=== PATIENT | male | born 1945 | race Caucasian/White ===

== ENCOUNTER 2019-10-15 17:23 | Emergency (ER) | payer OTHER, SELFPAY ==
[2019-10-15 17:32] VITALS: BP 158/81; PULSE 63; RESP 18; TEMP 36.6; O2SAT 94; BMI 40.1
--- NOTE | 2019-10-15 17:37 | PC.NURSE ---
Pt seated in the waiting room. Will continue to monitor.
[2019-10-15 19:11] VITALS: BP 161/92; PULSE 66; RESP 14; TEMP 36.7; O2SAT 96
--- NOTE | 2019-10-15 19:16 | ED_ITS ---
Documented by User: RICK Peraza 10/16/19 02:02 HPI - Extremity Problem General: Chief complaint: Extremity Injury, Upper Stated complaint: LEFT SHOULDER AND ARM PAIN Time Seen by Provider: 10/15/19 19:16 History of Present Illness: HPI Narrative: Patient is a 74-year-old male who comes into the ED with left shoulder pain. He states that around 2 PM today [place] and he tripped and fell landing on his left shoulder. He denies any loss of consciousness any head trauma and dizziness any headache or vision changes after fall. His only complaint is left shoulder pain and he is limited range of motion moving left shoulder and arm. Denies any nausea, vomiting, chest pain, shortness of breath, abdominal pain, bladder or bowel symptoms. Review of Systems General: Reports: 10 or more systems reviewed and unremarkable except in HPI and below PFSH ED PFSH: Statuses (acute, chronic, etc) shown below reflect problem list status as previously entered and may not be historically accurate Family History Mother Heart disease Social History Smoking and tobacco status: never smoked Alcohol intake: never Physical Exam Const: COMMON NORMALS: oriented x3 HENMT: COMMON NORMALS: normocephalic HEAD & SCALP: normocephalic MOUTH: oral and palatal mucosa normal THROAT: posterior oropharynx normal and uvula midline Neck/C-Spine: COMMON NORMALS: supple GENERAL: Yes normal visual inspection Resp: COMMON NORMALS: normal respiratory effort, no retractions, no use of accessory muscles and clear to auscultation bilaterally AUSCULTATION: clear to auscultation bilaterally Cardio: COMMON NORMALS: regular rate, regular rhythm, S1 normal heart sound, S2 normal heart sound, no gallops, no clicks, no murmurs and peripheral pulses 2+ throughout RATE: regular rate RHYTHM: regular rhythm HEART SOUNDS: S1 normal and S2 normal PERIPHERAL PULSES: pulses 2+ throughout GI: COMMON NORMALS: normal to inspection, nondistended, normoactive bowel sounds, soft to palpation, non-tender and no masses PALPATION: Yes soft : COMMON NORMALS: Yes no CVA tenderness BLADDER/KIDNEY EXAM: Yes no CVA tenderness Back/Pelvis: COMMON NORMALS: no CVA tenderness Extremity: LEFT UPPER EXTREMITY: Yes shoulder joint Left shoulder joint: Yes palpation (Tender on posterior and anterior of shoulder joint. also tender on clavicle), Yes ROM (limited due to pain) and Yes neurovascular exam (intact) Neuro: COMMON NORMALS: oriented x3 and moves all extremities Course Vital Signs: Vital signs: Vital Signs Temperature 98.1 F 10/15/19 21:28 Pulse Rate 66 10/15/19 21:28 Respiratory Rate 14 10/15/19 21:28 Blood Pressure 160/94 10/15/19 21:28 Pulse Oximetry 96 10/15/19 21:28 MDM - Extremity (Nontraumatic) MDM Narrative: Medical decision making narrative: Patient is a 74-year-old male comes in with left shoulder pain after falling. X-ray of left shoulder Showed a proximal humeral head fracture that was nondisplaced and closed. An orthopedic referral was made for patient. He was placed in a sling and given a handwritten prescription for Lortab 5/[address] Lorenz signed off on Lortab prescription. Imaging Data^: Xray Ortho: Attestation: I personally reviewed and interpreted this imaging study as follows: My impression: Proximal humeral head fracture of left arm Nondisplaced and jesus sed. Pending final radiology report. Discharge Plan Discharge Patient Disposition: Home, Self-Care Clinical Impression: Fracture of proximal end of left humerus Qualifiers: Encounter type: initial encounter Fracture type: closed Fracture morphology: other fracture Fracture alignment: nondisplaced Qualified Code(s): S42.295A - Other nondisplaced fracture of upper end of left humerus, initial encounter for closed fracture Condition: Stable Prescriptions: No Action betamethasone acet,sod phos [Celestone Soluspan] 6 mg/mL suspension 6 mg intra-articular ONCE PRN (Reason: pain (scale score 1-3)) Qty: 1 RF: 0 bupivacaine (PF) 0.25 % (2.5 mg/mL) solution 5 mg intra-articular ONCE PRN (Reason: analgesia) Qty: 2 RF: 0 lidocaine (PF) 10 mg/mL (1 %) solution 10 mg intra-articular ONCE PRN (Reason: pain (scale score 1-3)) Qty: 2 RF: 0 aspirin [Adult Low Dose Aspirin] 81 mg tablet,delayed release (DR/EC) 81 mg PO QDAY RF: 0 atorvastatin 80 mg tablet 80 mg PO QDAY RF: 0 lisinopril 20 mg tablet 20 mg PO QDAY RF: 0 warfarin 5 mg tablet 5 mg PO QDAY RF: 0 nifedipine 60 mg tablet extended release 60 mg PO QDAY RF: 0 insulin lispro SUBCUT RF: 0 liraglutide (weight loss) 3 mg/0.5 mL (18 mg/3 mL) pen injector 0.6 mg SUBCUT QDAY RF: 0 ranitidine HCl [Acid Control (ranitidine)] 150 mg tablet 150 mg PO QDAY RF: 0 sevelamer carbonate 800 mg tablet 800 mg PO TID RF: 0 gabapentin 300 mg capsule 300 mg PO QDAY RF: 0 All Day Allergy (cetirizine) 10 mg capsule PO RF: 0 omega-3 fatty acids [Fish Oil Concentrate] 1,000 mg capsule 1,000 mg PO QDAY RF: 0 nitroglycerin 0.4 mg tablet, sublingual 0.4 mg SUBLINGUAL Q5M PRNRF: 0 bisacodyl [Ducodyl (bisacodyl)] 5 mg tablet,delayed release (DR/EC) 5 mg PO ONCE RF: 0 oxycodone 5 mg capsule 5 mg PO BID PRNRF: 0 doxercalciferol 1 mcg capsule 1 mcg PO QDAY RF: 0 epoetin beta, methoxy peg 30 mcg/0.3 mL syringe 30 mcg SUBCUT ONCE RF: 0 cinacalcet 30 mg tablet 30 mg PO QDAY RF: 0 Discharge Orders: Discharge Order (Routine); Ordered 10/15/19 Ordered By: Mir Gamboa Referrals: Adria Artis DO [Family Provider] - Discharge Diet: Regular Discharge Activity: Limit activity as instructed Patient Instructions: Fractures - Humerus Activity Restrictions/Additional Instructions: [facility] [place] been [place]. The orthopedic office should be calling you in the next couple days to set up an appointment. Wear sling and limit any activity with the left arm. He can apply ice to help with swelling and symptom relief. Take hydrocodone pain medication as prescribed. Also take ibuprofen along with hydrocodone to help with pain. Discharge Date/Time: 10/15/19 21:29 Coding Level of Care Code ED Reel And Rewinder Operator for Chg Fwd Documented by User: Edgardo Lorenz DO 10/17/19 05:53 HPI - Extremity Problem General: Chief complaint: Extremity Injury, Upper Stated complaint: LEFT SHOULDER AND ARM PAIN Time Seen by Provider: 10/15/19 19:16 PFSH ED PFSH: Statuses (acute, chronic, etc) shown below reflect problem list status as previously entered and may not be historically accurate Family History Mother Heart disease Social History Smoking and tobacco status: never smoked Alcohol intake: never Course Vital Signs: Vital signs: Vital Signs Temperature 98.1 F 10/15/19 21:28 Pulse Rate 66 10/15/19 21:28 Respiratory Rate 14 10/15/19 21:28 Blood Pressure 160/94 10/15/19 21:28 Pulse Oximetry 96 10/15/19 21:28 Discharge Plan Discharge Patient Disposition: Home, Self-Care Clinical Impression: Fracture of proximal end of left humerus Qualifiers: Encounter type: initial encounter Fracture type: closed Fracture morphology: other fracture Fracture alignment: nondisplaced Qualified Code(s): S42.295A - Other nondisplaced fracture of upper end of left humerus, initial encounter for closed fracture Condition: Stable Prescriptions: No Action betamethasone acet,sod phos [Celestone Soluspan] 6 mg/mL suspension 6 mg intra-articular ONCE PRN (Reason: pain (scale score 1-3)) Qty: 1 RF: 0 bupivacaine (PF) 0.25 % (2.5 mg/mL) solution 5 mg intra-articular ONCE PRN (Reason: analgesia) Qty: 2 RF: 0 lidocaine (PF) 10 mg/mL (1 %) solution 10 mg intra-articular ONCE PRN (Reason: pain (scale score 1-3)) Qty: 2 RF: 0 aspirin [Adult Low Dose Aspirin] 81 mg tablet,delayed release (DR/EC) 81 mg PO QDAY RF: 0 atorvastatin 80 mg tablet 80 mg PO QDAY RF: 0 lisinopril 20 mg tablet 20 mg PO QDAY RF: 0 warfarin 5 mg tablet 5 mg PO QDAY RF: 0 nifedipine 60 mg tablet extended release 60 mg PO QDAY RF: 0 insulin lispro SUBCUT RF: 0 liraglutide (weight loss) 3 mg/0.5 mL (18 mg/3 mL) pen injector 0.6 mg SUBCUT QDAY RF: 0 ranitidine HCl [Acid Control (ranitidine)] 150 mg tablet 150 mg PO QDAY RF: 0 sevelamer carbonate 800 mg tablet 800 mg PO TID RF: 0 gabapentin 300 mg capsule 300 mg PO QDAY RF: 0 All Day Allergy (cetirizine) 10 mg capsule PO RF: 0 omega-3 fatty acids [Fish Oil Concentrate] 1,000 mg capsule 1,000 mg PO QDAY RF: 0 nitroglycerin 0.4 mg tablet, sublingual 0.4 mg SUBLINGUAL Q5M PRNRF: 0 bisacodyl [Ducodyl (bisacodyl)] 5 mg tablet,delayed release (DR/EC) 5 mg PO ONCE RF: 0 oxycodone 5 mg capsule 5 mg PO BID PRNRF: 0 doxercalciferol 1 mcg capsule 1 mcg PO QDAY RF: 0 epoetin beta, methoxy peg 30 mcg/0.3 mL syringe 30 mcg SUBCUT ONCE RF: 0 cinacalcet 30 mg tablet 30 mg PO QDAY RF: 0 Discharge Orders: Discharge Order (Routine); Ordered 10/15/19 Ordered By: Mir Gamboa Referrals: Adria Artis DO [Family Provider] - Discharge Diet: Regular Discharge Activity: Limit activity as instructed Patient Instructions: Fractures - Humerus Activity Restrictions/Additional Instructions: [facility] [place] has been made. The orthopedic office should be calling you in the next couple days to set up an appointment. Wear sling and limit any activity with the left arm. He can apply ice to help with swelling and symptom relief. Take hydrocodone pain medication as prescribed. Also take ibuprofen along with hydrocodone to help with pain. Discharge Date/Time: 10/15/19 21:29 Coding Level of Care Code ED Reel And Rewinder Operator for Aurelia Chaudhari
--- NOTE | 2019-10-15 19:54 | XR_ITS ---
WS: [id number] SHOULDER LEFT TECHNIQUE: 3 views of the left shoulder CLINICAL INFORMATION: Shoulder pain COMPARISON: None. FINDINGS: Mild degenerative arthritis left AC joint. Distal clavicle appears normal. Cardiac pacer. Comminuted fracture left humeral head and neck. This extends to the greater tuberosity. XR/XR shoulder LT min 2V* [id number] IMPRESSION: Comminuted fracture left humeral head and neck with extension to the greater tu berosity
[2019-10-15] MEDS: HYDROcodone-acetaminophen 7.5-325 mg Tablet 1 TAB PO (20:53)
[2019-10-15 21:28] VITALS: BP 160/94; PULSE 66; RESP 14; TEMP 36.7; O2SAT 96
--- NOTE | 2019-10-16 10:43 | DCPLANNER ---
utilities manager had message to schedule a follow up appointment for patient with ortho. utilities manager called ortho, spoke with Pat, gave clinic patients information. A follow up appointment was scheduled for Wednesday, October 16, 2019 at 1:[address] Castillo. [facility], keycase assembler called [facility], informed her that patient was seen in the ER and that patient has an appointment scheduled for 10.16.19. Clinic will call patient with appointment information. utilities manager [facility].
--- NOTE | 2019-11-20 14:19 | DCPLANNER ---
Patient attended appointment scheduled for 10.16.19 with ortho.
== END 2019-10-15 21:29 | disposition home or self-care (01) ==
PROVIDERS: Emergency Provider Physician Assistant; Family Provider Emergency Medicine Emergency Medical Services
DX: S42.202A Unspecified fracture of upper end of left humerus, initial encounter for closed fracture (principal); W01.0XXA Fall on same level from slipping, tripping and stumbling without subsequent striking against object, initial encounter; Z79.82 Long term (current) use of aspirin; Z79.01 Long term (current) use of anticoagulants; Z79.4 Long term (current) use of insulin
CPT/HCPCS: 73030; 99281; 99283

== ENCOUNTER → 2019-10-30 08:35 | Outpatient (BNVA) | payer OTHER, SELFPAY | PROVIDERS: Family Provider Emergency Medicine Emergency Medical Services; Visit Provider Orthopaedic Surgery | DX: S42.202A Unspecified fracture of upper end of left humerus, initial encounter for closed fracture (principal); X58.XXXA Exposure to other specified factors, initial encounter | CPT/HCPCS: 73030 ==

== ENCOUNTER 2019-10-31 06:00 | Outpatient (RCR) | payer OTHER, SELFPAY | END 2019-11-10 23:59 | disposition home or self-care (01) | LOC: TPT 06:00 | PROVIDERS: Family Provider Emergency Medicine Emergency Medical Services; PCP Emergency Medicine Emergency Medical Services; Referring Provider Orthopaedic Surgery; Visit Provider Orthopaedic Surgery | DX: S42.202D Unspecified fracture of upper end of left humerus, subsequent encounter for fracture with routine healing (principal); X58.XXXD Exposure to other specified factors, subsequent encounter | CPT/HCPCS: 97110; 97140; 97161 ==

== ENCOUNTER 2019-11-11 06:00 | Outpatient (RCR) | payer OTHER, SELFPAY | END 2019-12-11 23:59 | disposition home or self-care (01) | LOC: TPT 06:00 | PROVIDERS: Family Provider Emergency Medicine Emergency Medical Services; PCP Emergency Medicine Emergency Medical Services; Referring Provider Orthopaedic Surgery; Visit Provider Orthopaedic Surgery | DX: S42.202D Unspecified fracture of upper end of left humerus, subsequent encounter for fracture with routine healing (principal); X58.XXXD Exposure to other specified factors, subsequent encounter | CPT/HCPCS: 97110; 97140; 97530 ==

== ENCOUNTER 2019-11-27 08:15 | Outpatient (CLI) | payer OTHER, SELFPAY ==
--- NOTE | 2019-11-27 08:26 | XR_ITS ---
WS: [id number] XR shoulder LT min 2V* [id number] REASON FOR EXAM: left proximal humerus fracture FINDINGS: Impacted fractures again seen in the surgical neck of the left humerus positioning is simil ar to October 30, 2019. A pacemaker seen on the left chest wall. The remaining shoulder was normal. XR/XR shoulder LT min 2V* [id number] IMPRESSION: Unchanged impacted surgical neck fracture of the left humerus.
== END 2019-11-27 08:16 | disposition home or self-care (01) ==
LOC: RAD 08:19
PROVIDERS: Family Provider Emergency Medicine Emergency Medical Services; PCP Emergency Medicine Emergency Medical Services; Visit Provider Orthopaedic Surgery
DX: S42.212A Unspecified displaced fracture of surgical neck of left humerus, initial encounter for closed fracture (principal); X58.XXXA Exposure to other specified factors, initial encounter
CPT/HCPCS: 73030

== ENCOUNTER → 2019-12-25 12:44 | Outpatient (BNVA) | payer OTHER, SELFPAY | PROVIDERS: Family Provider Emergency Medicine Emergency Medical Services; PCP Emergency Medicine Emergency Medical Services; Visit Provider Orthopaedic Surgery | DX: S42.295A Other nondisplaced fracture of upper end of left humerus, initial encounter for closed fracture (principal); S42.202A Unspecified fracture of upper end of left humerus, initial encounter for closed fracture; X58.XXXA Exposure to other specified factors, initial encounter | CPT/HCPCS: 73030 ==

== ENCOUNTER 2020-05-13 06:44 | Outpatient (CLI) | payer OTHER, SELFPAY ==
[2020-05-13 07:15] VITALS: BMI 40.1
--- NOTE | 2020-05-13 07:15 | ECG_ITS ---
[facility] Test Date: 2020-05-13 Pat Name: Shon Mullen Department: Room: Gender: Male Gerentological Physiotherapist: : 1945 Requested By: Marlene Vaughn Order Number: [id number] Quintanilla MD: Saji Cohen M.D. Interpretive Statements NAME OF STUDY: LEXISCAN SESTAMIBI STRESS TEST INDICATION: WORSENING SHORTNESS OF BREATH NOTE: Please note that this is the electrocardiogram portion of the Lexiscan/Sestamibi stress test. The perfusion scan will be documented separately. DATA: Baseline heart rate was 78 beats per minute. Baseline blood pressure was 188/93 millimeters of mercury. Target heart rate was 147. Maximum heart rate achieved was 85. which was 57 % of the predicted target heart rate. Maximum blood pressure was 188/104 millimeters of mercury. The reason for ending the test was completion of the protocol. The patient did not experience any symptoms. ELECTROCARDIOGRAM: BASELINE: Sinus rhythm. Normal axis. Inferolateral T wave inversion could be nonspecific however cannot rule out ischemia, interventricular conduction delay EXERCISE: After Lexiscan injection, no ST-T changes suggestive of ischemic noted. No arrhythmia noted. CONCLUSION: Please note due to baseline abnormality of the EKG specificity and sensitivity of the EKG portion of LexiScan MIBI stress test will be low 1. EKG not suggestive of ischemia 2. Lexiscan injection unremarkable. 3. Perfusion scan will be documented separately. Electronically Signed On 05-23-2020 16:40:17 CDT by Saji Cohen M.D. [id number]
--- NOTE | 2020-05-13 07:16 | NMCV_ITS ---
NM noah perf SPECT r/s* [id number] Shon Mullen Age: 75 Gender: M : 1945 Exam Date: 05/13/2020 08:08 Ordering Phys: Marlene Vaughn Technologist: ELROY Brown Exam Location: [facility] Indications: SOB STRESS TEST [facility] IMAGE PROTOCOL Rest/Stress 1 Lexiscan Day Radiopharmaceutical Dose (mCi) Administration Site Administered by Rest: Tc-99m 10.9 IV ELROY Brown Sestamibi Stress:Tc-99m 32.5 IV ELROY Michelle Sestamibi Rest: 13-May-2020 60 Discovery 630 Stress: 13-May-2020 45 Discovery 630 0.4mg Lexiscan. Images obtained in supine and prone position. SPECT RESULTS Technical Quality: Good Raw Data Analysis: Adequate Image Corrections: Patient motion artifact - motion correction applied to stress images. Summed Stress Score: 14 Summed Rest Score: 19 Summed Difference Score: 4 PERFUSION FINDINGS Large area of fixed perfusion defect noted in basal to distal inferior basal to mid inferolateral and lateral wall suggestive of old myocardial infarction versus scarring. FUNCTIONAL RESULTS (calculated via Gated SPECT) Stress Image LV EF (%): 30 Stress EDV (mL):202 TID: 1.06 Stress ESV (mL):142 Rest Image LV EF (%): 30 FUNCTIONAL FINDINGS: There appeared to be inferior inferolateral and inferoapical wall akinesis IMPRESSIONS Medium-sized area of old myocardial infarction versus scarring noted in basal to distal inferior and inferolateral wall suggestive old myocardial infarction versus scarring without significant ischemia. EKG segment will be documented separately. Saji Cohen MD (Electronically Signed) Final Date: 13 May 2020 17:39 S
--- NOTE | 2020-05-13 09:11 | SUR.PREOP ---
Patient reports no pain or discomfort prior to the start of the procedure.
[2020-05-13] MEDS: regadenoson 0.4 Mg/5 ml Syringe IVP (09:13)
[2020-05-13 09:35] VITALS: BP 168/93; PULSE 68
== END 2020-05-13 06:45 | disposition home or self-care (01) ==
LOC: CDL 06:44
PROVIDERS: PCP Emergency Medicine Emergency Medical Services; Visit Provider Nurse Practitioner Family
DX: R06.02 Shortness of breath (principal); I25.10 Atherosclerotic heart disease of native coronary artery without angina pectoris
CPT/HCPCS: 78452; 93017; A9500; J2785

== ENCOUNTER 2020-05-20 12:28 | Outpatient (CLI) | payer OTHER, SELFPAY ==
--- NOTE | 2020-05-20 12:45 | USCV_ITS ---
CindymariferShon Age: 75 Gender: M : 1945 Exam Date: 05/20/2020 12:51 Ordering Phys: Saji Cohen MD ([email or web address]) Technologist: Abebe Chambers Exam Location: [facility] [place] Indication: LV FUNCTION OR MITRAL VALVE REGURGITATION BP: 132 / 75 HR: 39 Rhythm: Sinus Technical Quality: Technically difficult study MEASUREMENTS (Male / Female) Normal Values 2D ECHO LV Diastolic Diameter PLAX 5.4 cm 4.2 - 5.9 / 3.9 - 5.3 cm LV Systolic Diameter PLAX 2.9 cm IVS Diastolic Thickness 1.3 cm 0.6 - 1.0 / 0.6 - 0.9 cm IVS Systolic Thickness 1.6 cm LVPW Diastolic Thickness 1.3 cm 0.6 - 1.0 / 0.6 - 0.9 cm LVPW Systolic Thickness 1.8 cm LVOT Diameter 2.3 cm LV Ejection Fraction 2D Teich 76.6 % LV Ejection Fraction MOD 2C 52.6 % LV Ejection Fraction 2C AL 55.2 % LA Diameter 4.9 cm LA Width 5.1 cm LA Height 6.3 cm RA Width 5.3 cm RA Height 5.8 cm Aorta at Sinotubular Diameter 1.2 cm M-MODE LV Diastolic Diameter MM 5.5 cm 4.2 - 5.9 / 3.9 - 5.3 cm LV Systolic Diameter MM 3.3 cm LV Ejection Fraction MM Teich 69.4 % IVS Diastolic Thickness MM 1.2 cm 0.6 - 1.0 / 0.6 - 0.9 cm IVS Systolic Thickness MM 1.9 cm LVPW Diastolic Thickness MM 1.6 cm 0.6 - 1.0 / 0.6 - 0.9 cm LVPW Systolic Thickness MM 2.7 cm RV Diastolic Diameter MM 2.2 cm Aortic Annulus Diameter 3.4 cm LA Ao Ratio MM 1.4 MV E Point Septal Separation 2.0 cm DOPPLER AV Peak Velocity 216.0 cm/s LVOT Peak Velocity 73.0 cm/s AV Area Cont Eq vti 1.2 cm squared AV Area Cont Eq pk 1.4 cm squared MV Area PHT 3.2 cm squared Mitral E to A Ratio 4.3 MV E' Velocity 8.0 cm/s Mitral E to MV E' Ratio 12.4 Mitral E to LV E' Lateral Ratio 12.7 Mitral E to LV E' Septal Ratio 12.1 TR Peak Velocity 219.0 cm/s TR Peak Gradient 19.2 mmHg TV Peak E Velocity 115.0 cm/s Right Atrial Pressure 3.0 mmHg Pulmonary Artery Systolic Pressu 22.2 mmHg PV Peak Velocity 110.0 cm/s FINDINGS Left Ventricle Moderately increased left ventricular cavity size. Normal left ventricular systolic function. Left ventricular ejection fraction is estimated at 55 %. In the presence of atrial fibrillation diastolic function cannot be assessed accurately. Right Ventricle Normal right ventricular size. Catheter/pacemaker wire visualized in the right ventricle. Right Atrium Normal right atrial size. Catheter/pacemaker wire in the right atrial cavity. Left Atrium The left atrium is normal in size. Mitral Valve Mildly thickened mitral valve. No mitral valve stenosis. Moderate mitral valve regurgitation. Aortic Valve Moderate aortic valve calcification. No aortic valve stenosis. No aortic valve regurgitation. Tricuspid Valve Structurally normal tricuspid valve without significant stenosis or regurgitation. Pulmonary artery systolic pressure is normal. Pulmonic Valve Structurally normal pulmonic valve without significant stenosis. There is no pulmonic regurgitation. Pericardium Normal pericardium without effusion. Aorta Normal ascending aorta dimension. CONCLUSIONS 1-Moderately increased left ventricular cavity size. Normal left ventricular systolic function. Left ventricular ejection fraction is estimated at 55 %. In the presence of atrial fibrillation diastolic function cannot be assessed accurately. 2-Normal right ventricular size. Catheter/pacemaker wire visualized in the right ventricle. 3-Normal right atrial size. Catheter/pacemaker wire in the right atrial cavity. 4-Mildly thickened mitral valve. No mitral valve stenosis. Moderate mitral valve regurgitation. 5-Moderate aortic valve calcification. No aortic valve stenosis. No aortic valve regurgitation. 6-There is no pericardial effusion. 7-Pulmonary artery systolic pressure is within normal limits. 8-Right atrial pressure is around 5 mm of mercury. 9-When compared to the prior echocardiogram dated 02/12/2019 there is moderate mitral valve regurgitation and pacer wire in the right ventricle cavity present now. Saji Cohen MD (Electronically Signed) Final Date: 22 May 2020 19:19 S
== END 2020-05-20 12:29 | disposition home or self-care (01) ==
LOC: US 12:28
PROVIDERS: PCP Emergency Medicine Emergency Medical Services; Visit Provider Internal Medicine Cardiovascular Disease
DX: R06.02 Shortness of breath (principal); I08.0 Rheumatic disorders of both mitral and aortic valves; Z95.0 Presence of cardiac pacemaker
CPT/HCPCS: 93306

== ENCOUNTER → 2020-09-15 11:21 | Outpatient (BNVA) | payer OTHER, SELFPAY | PROVIDERS: PCP Emergency Medicine Emergency Medical Services; Visit Provider Internal Medicine | DX: Z20.828 Contact with and (suspected) exposure to other viral communicable diseases (principal); Z76.82 Awaiting organ transplant status | CPT/HCPCS: 87635 ==

== ENCOUNTER 2020-09-19 08:06 | Day surgery (SDC) | payer OTHER, SELFPAY ==
[2020-09-17 13:15] VITALS: BMI 39.2
[2020-09-19 08:22] VITALS: BP 157/95; PULSE 72; RESP 16; TEMP 36.4; O2SAT 97
[2020-09-19] MEDS: sodium chloride 0.9% 1,000 ML 30 ML IV (08:36)
[2020-09-19 08:38] LABS: Glucose Point of Care 126 mg/dL (70-110)
--- NOTE | 2020-09-19 08:43 | ANES.PREANE2 ---
Pre-Anesthetic Assessment Pre-Anesthetic Assessment: Height/Weight: Height 1.78 m Weight 123.831 kg Temp Pulse Resp BP Pulse Ox 97.6 F 72 16 157/95 97 09/19/20 08:22 09/19/20 08:22 09/19/20 08:22 09/19/20 08:22 09/19/20 08:22 Preop Diagnosis: colon Proposed Procedure: Operation Date: 09/19/20 09:00 Proposed Procedures p Colonoscopy 60248 Z76.82(Not Applicable) - Jesús Penn MD Familial anesthetic complications: None Was Beta Maciej taken within 24 hours: N/A Last intake: Intake Last Liquid Date 09/18/20 Last Liquid Time 20:00 Last Solid Date 09/17/20 Last Solid Time 20:00 Social: Social History: No alcohol and No tobacco Exam: Pre-Anes Outpt Exam: alert, oriented x 3, clear to auscultation bilaterally and regular rate & rhythm Airway: Cervical ROM: WNL MP: 3 Dentition: False Pulmonary: Comments: 2 L NC at night CV/HEM: CV/HEM: CAD, HTN and OH Comments: 05/20/20 EF 55%, mod MVR 05/13/20 stress test negative pacemaker : : Chronic renal failure Comments: working towards kidney transplant GI: GI: GERD Metabolic: Metabolic: DM Anesthetic Plan: ASA status: 4 Anesthesia: MAC Risk of > 500 ml blood loss (7ml/kg in children): No Meds/Allergies Current Medications: Current Medications Generic Name Dose Route Start Last Admin Trade Name Freq PRN Reason Stop Dose Admin Sodium Chloride 1,000 mls @ 30 ml s/hr 09/19/20 08:15 09/19/20 08:36 Sodium Chloride 0.9% IV 09/20/20 08:14 30 mls/hr .Q24H GEORGE Administration PFSH Anesthesia PFSH: Medical History (Updated 09/02/20 @ 11:11 by Jesús Penn MD) Accelerated essential hypertension CAD (coronary artery disease) History of heart attack Pacemaker Renal failure Surgical History S/P cardiac pacemaker procedure S/P dialysis catheter insertion S/P PTCA (percutaneous transluminal coronary angioplasty) Family History Mother Heart disease Social History Smoking and tobacco status: former smoker Alcohol intake: never History of recent travel: No Data Anesthesia Other Labs: Laboratory Results - last 48 hr 09/19/20 08:34 POC Glucose 126 H Cardiac Studies: No Data to Display
--- NOTE | 2020-09-19 09:18 | W.PM.OPSUD ---
Surgery/Procedure H&P Update DATE OF PROCEDURE: September 19, 2020 DATE H&P PERFORMED: 09/02/20 PREOP DIAGNOSIS: colon PLANNED PROCEDURE: Operation Date: 09/19/20 09:00 Proposed Procedures p Colonoscopy [id number] Z76.82(Not Applicable) - Jesús Penn MD
[2020-09-19 09:48] VITALS: BP 112/67; PULSE 67; RESP 12; TEMP 36.3; O2SAT 92
[2020-09-19 10:01] VITALS: BP 126/72; PULSE 58; RESP 18; TEMP 36.4; O2SAT 94
[2020-09-19 10:16] VITALS: BP 135/75; PULSE 62; RESP 18; TEMP 36.2; O2SAT 97
--- NOTE | 2020-09-19 16:24 | ANE.PACU2 ---
Inpatient post-anesthesia follow up: Airway intact: Yes Vital signs: Temperature 97.2 F Pulse Rate 62 Respiratory Rate 18 Blood Pressure 135/75 Pulse Oximetry 97 Oxygen Delivery Me thod Nasal Cannula Oxygen Flow Rate 4 Fraction of Inspir ed Oxygen Hydration adequate: Yes Nausea and vomiting: No Pain level: 2 Mental status: Baseline
== END 2020-09-19 10:47 | disposition home or self-care (01) ==
PROVIDERS: PCP Emergency Medicine Emergency Medical Services; Visit Provider Internal Medicine
PROC: 0DJD8ZZ Inspection of Lower Intestinal Tract, Via Natural or Artificial Opening Endoscopic (ICD-10-PCS; CPT 45378; principal; 2020-09-19 09:00)
DX: Z01.818 Encounter for other preprocedural examination (principal); Z76.82 Awaiting organ transplant status; K57.30 Diverticulosis of large intestine without perforation or abscess without bleeding; D12.3 Benign neoplasm of transverse colon; Z99.81 Dependence on supplemental oxygen; I25.10 Atherosclerotic heart disease of native coronary artery without angina pectoris; E11.9 Type 2 diabetes mellitus without complications; I10 Essential (primary) hypertension; I25.2 Old myocardial infarction; Z95.0 Presence of cardiac pacemaker
CPT/HCPCS: 12345; 36416; 45385; 82962; 88305; J7030

== ENCOUNTER 2020-11-11 12:27 | Emergency (ER) | payer OTHER, MEDICARE, SELFPAY ==
[2020-11-11 12:34] VITALS: BP 151/90; PULSE 76; RESP 24; TEMP 36.5; O2SAT 94; BMI 41.4
--- NOTE | 2020-11-11 12:48 | XRR_ITS ---
PROCEDURE INFORMATION: Exam: XR Chest Exam date and time: 11/11/2020 12:50 PM Age: 75 years old Clinical indication: Shortness of breath; Prior surgery; Additional info: SOB TECHNIQUE: Imaging protocol: XR of the chest Views: 1 view. COMPARISON: CR Chest 1 [place] [id number] 02/20/2019 2:23 PM FINDINGS: Lungs: Parenchymal density is seen in the right perihilar and mid lung consistent with pneumonia. This finding is new since prior examination. Low lung volumes are seen. Pleural spaces: Unremarkable. No pleural effusion. No pneumothorax. Heart/Mediastinum: Unremarkable. No cardiomegaly. Bones/joints: Unremarkable. Soft tissues: Cardiac pacemaker left anterior chest the unipolar lead is intact and in good position. XR/XR chest 1V portable [id number] IMPRESSION: 1. Right perihilar pneumonia 2. Cardiac pacemaker left anterior chest in good position
--- NOTE | 2020-11-11 12:49 | ECG_ITS ---
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: : 1945 Requested By: Mir Gamboa Order Number: [id number] Dwight MD: KINSEY VIVAS Measurements Intervals [place] Rate: 63 P: WI: QRS: 19 QRSD: 105 T: -73 QT: 414 QTc: 424 Interpretive Statements PACED RHYTHM ELECTRONIC VENTRICULAR PACEMAKER -- CONTOUR ANALYSIS BASED ON INTRINSIC RHYTHM INDETERMINATE AXIS ST DEVIATION AND MODERATE T-WAVE ABNORMALITY, CONSIDER ANTEROLATERAL ISCHEMIA [-0.1+ mV T WAVE IN V3-V6] ST DEVIATION AND MODERATE T-WAVE ABNORMALITY, CONSIDER INFERIOR ISCHEMIA [-0.1+ mV T WAVE IN II/aVF] No previous ECG available for comparison Electronically Signed On 11-11-2020 19:56:38 DEPUTY PROBATION OFFICER by KINSEY VIVAS [id number]
[2020-11-11 13:19] VITALS: O2SAT 97
[2020-11-11 13:29] LABS: Basophils # 0.1 10^3/uL (0.0-0.1); Basophils % 0.6 %; Eosinophils # 0.3 10^3/uL (0.0-0.8); Eosinophils % 3.3 %; Hematocrit 31.7 % (42.0-52.0); Hemoglobin 10.4 g/dL (11.7-16.6); Lymphocytes % 10.1 %; Mean Corpuscular HGB Conc 32.8 g/dL (30.0-36.0); Mean Corpuscular Hemoglobin 30.7 pg (28.0-34.0); Mean Corpuscular Volume 93.5 fL (80-94); Mean Platelet Volume 10.2 fL (7.4-10.4); Monocytes # 0.7 10^3/uL (0.2-0.9); Monocytes % 7.8 %; Neutrophils # 7.29 10^3/uL (1.8-7.7); Neutrophils % 77.9 %; Nucleated Red Blood Cells % 0 %; Platelet Count 210 10^3/cmm (130-400); Red Blood Count 3.39 10^6/uL (4.1-5.3); Red Cell Distribution Width 14.4 % (12.1-15.1); White Blood Count 9.4 10^3/uL (4.0-10.0)
--- NOTE | 2020-11-11 13:31 | ED_ITS ---
HPI - SOB/Dyspnea General: Chief Complaint: Shortness of Breath/Dyspnea Stated Complaint: [facility] Time Seen by Provider: 11/11/20 13:22 History of Present Illness: HPI Narrative: 75-year-old male who comes in today from [facility]. He went there for follow-up a week ago he been started on some antibiotics as well as some diuretics for his perceived to be some fluid overload as well as some suspected underlying pneumonia he didn't feel like he was better and they reported to him that his chest x-ray is worse he was diverted here he is usually on oxygen at 2 L/min he is also on apixaban. He has a history of end-stage renal disease and last few months he had converted from hemodialysis to home peritoneal dialysis. His weights been stable for last 2 weeks. He denies any fever he has had a minimally productive cough no chest pain. MD elicited complaint: shortness of breath and cough Pertinent past history: COPD and pneumonia Onset (ago): week(s) Context: recent illness Timing: intermittent Severity: moderate Exacerbating factors: coughing Relieving factors: oxygen and rest Known history of: COPD Associated symptoms: Reports chest congestion; Deny abdominal pain, chest pain, cough, diaphoresis, dizziness, extremity pain, fever(s), hemoptysis, lightheadedness, myalgias, nausea, orthopnea, palpita tions, paresthesias, polydipsia, polyuria, rash, sense of impending doom, syncope or vomiting Treatment prior to arrival: oxygen Review of Systems Const: Denies: fever(s) or diaphoresis ENMT: Denies: throat pain, ear or mastoid pain, nasal discharge or nasal congestion Card: Denies: chest pain, palpitations, lightheadedness, syncope or orthopnea Resp: Reports: chest congestion; Denies: hemoptysis GI: Denies: abdominal pain, nausea or vomiting : Denies: flank pain, dysuria, urinary frequency or urinary urgency Musc: Denies: extremity pain Skin/Breast: Denies: rash or pruritus Neuro: Denies: dizziness Endo: Denies: polyuria or polydipsia PFS ED PFSH: Medical History Accelerated essential hypertension CAD (coronary artery disease) History of heart attack Pacemaker Renal failure Surgical History S/P cardiac pacemaker procedure S/P dialysis catheter insertion S/P PTCA (percutaneous transluminal coronary angioplasty) Family History Mother Heart disease Social History Smoking and tobacco status: former smoker Alcohol intake: never History of recent travel: No Physical Exam Const: COMMON NORMALS: no acute distress GENERAL APPEARANCE: cooperative and comfortable ORIENTATION/CONSCIOUSNESS: Yes awake, Yes oriented to person, Yes oriented to place and Yes oriented to time HENMT: COMMON NORMALS: normocephalic, atraumatic and hearing grossly normal bilaterally HEAD & SCALP: normocephalic and atraumatic Eye: COMMON NORMALS: Equal, round and reactive pupils present, EOMs intact bilaterally, conjunctivae normal and no scleral icterus CONJUNCTIVA: Yes conjunctivae normal PUPIL: Yes Equal, round and reactive pupils present Neck/C-Spine: COMMON NORMALS: full ROM, no lymphadenopathy, supple and no JVD Lymph: LYMPHATIC: no lymphadenopathy noted and no lymphedema noted Resp: COMMON NORMALS: normal respiratory effort, No retractions and No use of accessory muscles AUSCULTATION: rhonchi right upper Cardio: COMMON NORMALS: no JVD, regular rate, regular rhythm and No murmurs present (Cardio) RATE: regular rate RHYTHM: regular rhythm GI: COMMON NORMALS: Soft to palpation and No hepatosplenomegaly present AUSCULTATION: Yes normoactive bowel sounds PALPATION: Yes Soft to palpation, No Tenderness to palpation present (GI), No Guarding due to palpation present (GI) and Yes No hepatosplenomegaly present Extremity: COMMON NORMALS: normal to inspection, capillary refill normal, no clubbing, cyanosis or edema, no calf tenderness and no pedal edema Neuro: SENSORIUM/ORIENTATION: Yes oriented to person, Yes oriented to place and Yes oriented to time Skin: COMMON NORMALS: no rashes or lesions noted GENERAL SKIN EXAM: no rashes or lesions noted Course Vital Signs: Vital signs: Vital Signs Temperature 97.7 F 11/11/20 12:34 Pulse Rate 63 11/11/20 17:21 Respiratory Rate 17 11/11/20 17:21 Blood Pressure 135/76 11/11/20 17:21 Pulse Oximetry 95 11/11/20 17:21 MDM - SOB/Dyspnea MDM Narrative: Medical decision making narrative: Increased infiltrate on lung right patient has previously been on Zithromax we will put him on Levaquin recheck with his primary care doctor within the next week. If there is any worsening or change symptoms return. Lab Data: Labs: Lab Results 11/11/20 11/11/20 11/11/20 Range/Units 13:10 13:10 13:10 WBC 9.4 (4.0-10.0) 10^3/ uL RBC 3.39 L (4.1-5.3) 10^6/u L Hgb 10.4 L (11.7-16.6) g/dL Hct 31.7 L (42.0-52.0) % MCV 93.5 (80-94) fL MCH 30.7 (28.0-34.0) pg MCHC 32.8 (30.0-36.0) g/dL RDW 14.4 (12.1-15.1) % Plt Count 210 (130-400) 10^3/c mm MPV 10.2 (7.4-10.4) fL Neut % (Auto) 77.9 % Lymph % (Auto) 10.1 % [place]ade % (Auto) 7.8 % Eos % (Auto) 3.3 % Baso % (Auto) 0.6 % Neut # (Auto) 7.29 (1.8-7.7) 10^3/u L Lymph # (Auto) 1.0 (0.8-4.8) 10^3/u L Dade # (Auto) 0.7 (0.2-0.9) 10^3/u L Eos # (Auto) 0.3 (0.0-0.8) 10^3/u L Baso # (Auto) 0.1 (0.0-0.1) 10^3/u L Nucleated RBC % (a uto) 0 % Nucleated RBCs # 0.0 /100WBC Sodium 132 L (136-145) mmol/L Potassium 3.6 (3.5-5.1) mmol/L Chloride 93 L (98-107) mmol/L Carbon Dioxide 27 (22-29) mmol/L Anion Gap 15.6 (5-19) BUN 38 H (8-23) mg/dL Creatinine 4.8 H (0.7-1.2) mg/dL GFR Calculation Not Reportable Glucose 155 H (65-115) mg/dL Calculated Osmolal ity 286 (285-295) mOsm/k g Calcium 9.3 (8.5-10.5) mg/dL Total Bilirubin 0.4 (0.15-1.2) mg/dL AST 17 (0-40) U/L ALT 18 (0-41) U/L Alkaline Phosphata se 79 (40-130) IU/L Troponin T Baselin e 82 H (0-15) ng/L Troponin T 120 Min [place] (0-15) ng/L Delta Troponin T (0-10) ABS# NT-Pro-B Natriuret Pep 64832 H (0-125) pg/mL Total Protein 6.9 (6.6-8.7) g/dL Albumin 3.6 (3.5-5.2) g/dL Globulin 3.3 (1.3-4.6) g/dL 11/11/20 Range/Units 13:35 WBC (4.0-10.0) 10^3/ uL RBC (4.1-5.3) 10^6/u L Hgb (11.7-16.6) g/dL Hct (42.0-52.0) % MCV (80-94) fL MCH (28.0-34.0) pg MCHC (30.0-36.0) g/dL RDW (12.1-15.1) % Plt Count (130-400) 10^3/c mm MPV (7.4-10.4) fL Neut % (Auto) % Lymph % (Auto) % [place] % (Auto) % Eos % (Auto) % Baso % (Auto) % Neut # (Auto) (1.8-7.7) 10^3/u L Lymph # (Auto) (0.8-4.8) 10^3/u L [place] # (Auto) (0.2-0.9) 10^3/u L Eos # (Auto) (0.0-0.8) 10^3/u L Baso # (Auto) (0.0-0.1) 10^3/u L Nucleated RBC % (a uto) % Nucleated RBCs # /100WBC Sodium (136-145) mmol/L Potassium (3.5-5.1) mmol/L Chloride (98-107) mmol/L Carbon Dioxide (22-29) mmol/L Anion Gap (5-19) BUN (8-23) mg/dL Creatinine (0.7-1.2) mg/dL GFR Calculation Glucose (65-115) mg/dL Calculated Osmolal ity (285-295) mOsm/k g Calcium (8.5-10.5) mg/dL Total Bilirubin (0.15-1.2) mg/dL AST (0-40) U/L ALT (0-41) U/L Alkaline Phosphata se (40-130) IU/L Troponin T Baselin e (0-15) ng/L Troponin T 120 Min [place] 78.83 H (0-15) ng/L Delta Troponin T -3.17 L (0-10) ABS# NT-Pro-B Natriuret Pep (0-125) pg/mL Total Protein (6.6-8.7) g/dL Albumin (3.5-5.2) g/dL Globulin (1.3-4.6) g/dL Discharge Plan Discharge Patient Disposition: Home Clinical Impression: Pneumonia, CAD (coronary artery disease), End-stage renal disease (ESRD) Condition: Stable Prescriptions: New levofloxacin 500 mg tablet 500 mg PO DAILY 7 Days RF: 0 No Action aspirin [Adult Low Dose Aspirin] 81 mg tablet,delayed release (DR/EC) 81 mg PO DAILY@09 RF: 0 atorvastatin 80 mg tablet 80 mg PO DAILY@1800 RF: 0 nifedipine 60 mg tablet extended release 60 mg PO DAILY@09 RF: 0 All Day Allergy (cetirizine) 10 mg capsule 10 mg PO DAILY@09 RF: 0 nitroglycerin 0.4 mg tablet, sublingual 0.4 mg SUBLINGUAL Q5M PRN (Reason: Chest Pain) RF: 0 bisacodyl [Ducodyl (bisacodyl)] 5 mg tablet,delayed release (DR/EC) 5 mg PO PRN PRN (Reason: Constipation) RF: 0 epoetin beta, methoxy peg 30 mcg/0.3 mL syringe 30 mcg SUBCUT Q14D RF: 0 gabapentin 300 mg capsule 300 mg PO BID@ RF: 0 sevelamer carbonate 800 mg tablet 2,400 mg PO TID@ RF: 0 omega-3 fatty acids [Fish Oil Concentrate] 1,000 mg capsule 1,000 mg PO BID@ RF: 0 Lantus Solostar U-100 Insulin 100 unit/mL (3 mL) insulin pen 50 unit SUBCUT DAILY@ RF: 0 spironolactone 25 mg tablet 25 mg PO DAILY@ RF: 0 famotidine [Pepcid] 20 mg tablet 20 mg PO BID@ RF: 0 Saxenda 3 mg/0.5 mL (18 mg/3 mL) pen injector 3 mg SUBCUT DAILY@ RF: 0 Nephro-Zev Rx 1-60-300 mg-mg-mcg tablet 1 tab PO DAILY@ RF: 0 allopurinol 100 mg Tablet 100 mg PO DAILY PRN (Reason: Gout) RF: 0 oxycodone-acetaminophen 5-325 mg Tablet 1 tab PO BID PRN (Reason: Pain) RF: 0 Miralax 17 gram/dose Powder 17 g PO DAILY PRN (Reason: Constipation) RF: 0 Eliquis 5 mg tablet 5 mg PO BID@ RF: 0 docusate sodium 100 mg Capsule 200 mg PO BID@ RF: 0 Discharge Orders: Discharge ED (Routine); Ordered 11/11/20 Ordered By: Edgardo Lorenz Referrals: Adria Artis DO [Primary Care Provider] - Discharge Diet: Usual diet Discharge Activity: Resume usual activity Patient Instructions: Opioid Safety Activity Restrictions/Additional Instructions: Follow-up with your primary care doctor in 1 week. Coding Level of Care Code ED Anesthesiologist Physician for Aurelia Chaudhari
[2020-11-11 13:53] LABS: Alanine Aminotransferase 18 U/L (0-41); Albumin Level 3.6 g/dL (3.5-5.2); Alkaline Phosphatase 79 IU/L (40-130); Anion Gap 15.6 (5-19); Aspartate Amino Transferase 17 U/L (0-40); Blood Urea Nitrogen 38 mg/dL (8-23); Calcium 9.3 mg/dL (8.5-10.5); Carbon Dioxide 27 mmol/L (22-29); Chloride 93 mmol/L (98-107); Globulin 3.3 g/dL (1.3-4.6); Glucose 155 mg/dL (65-115); NT Pro B Type Natriuretic Pept 11260 pg/mL (0-125); Osmolality Calculated 286 mOsm/kg (285-295); Potassium 3.6 mmol/L (3.5-5.1); Sodium 132 mmol/L (136-145); Total Bilirubin 0.4 mg/dL (0.15-1.2); Total Protein 6.9 g/dL (6.6-8.7)
[2020-11-11 14:13] LABS: Troponin(5th) Baseline 82 ng/L (0-15)
[2020-11-11 14:33] VITALS: PULSE 70; RESP 12; O2SAT 98
--- NOTE | 2020-11-11 14:49 | ECG_ITS ---
[facility] Test Date: 2020-11-11 Pat Name: Shon Mullen Department: Room: Gender: Male Conversion Worker: : 1945 Requested By: Mir Gamboa Order Number: [id number] Dwight MD: KINSEY VIVAS Measurements Intervals [place] Rate: 64 P: MA: QRS: -74 QRSD: 216 T: 102 QT: 508 QTc: 527 Interpretive Statements ELECTRONIC VENTRICULAR PACEMAKER ABNORMAL RHYTHM ECG Compared to ECG 11/11/2020 12:48:31 Indeterminate axis no longer present T-wave abnormality no longer present Possible ischemia no longer present Electronically Signed On 11-11-2020 20:00:59 DECORATIVE ENGRAVER APPRENTICE by KINSEY VIVAS [id number]
[2020-11-11 15:38] VITALS: BP 131/86; PULSE 70; RESP 24; O2SAT 95
[2020-11-11 16:54] LABS: Troponin 5 2HR 78.83 ng/L (0-15)
[2020-11-11 17:00] LABS: Troponin 5 2HR Delta -3.17 ABS# (0-10)
[2020-11-11 17:21] VITALS: BP 135/76; PULSE 63; RESP 17; O2SAT 95
== END 2020-11-11 17:25 | disposition home or self-care (01) ==
PROVIDERS: Physician Assistant; Emergency Provider Family Medicine; PCP Emergency Medicine Emergency Medical Services
DX: J18.9 Pneumonia, unspecified organism (principal); I25.10 Atherosclerotic heart disease of native coronary artery without angina pectoris; N18.6 End stage renal disease; Z79.01 Long term (current) use of anticoagulants; Z79.82 Long term (current) use of aspirin; Z79.4 Long term (current) use of insulin; Z95.0 Presence of cardiac pacemaker; Z87.891 Personal history of nicotine dependence
CPT/HCPCS: 36415; 71045; 80053; 83880; 84484; 85025; 87040; 93005; 99283

== ENCOUNTER → 2020-12-29 09:41 | Outpatient (BNVA) | payer OTHER, MEDICARE, SELFPAY | PROVIDERS: PCP Emergency Medicine Emergency Medical Services; Visit Provider Internal Medicine Critical Care Medicine | DX: R06.02 Shortness of breath (principal) | CPT/HCPCS: 87635 ==

== ENCOUNTER 2021-01-01 07:00 | Outpatient (CLI) | payer OTHER, SELFPAY ==
--- NOTE | 2021-01-01 08:30 | CT_ITS ---
WS: [id number] CT CHEST TECHNIQUE: Noncontrast CT of the chest with coronal and sagittal reformatted images. CLINICAL INFORMATION: Right middle lobe syndrome COMPARISON: None. DLP: 1195.[address] scans at [facility] use at least one of these dose optimization techniques: automat ed exposure control; mA and/or kV adjustment per patient size (includes targeted exams where dose is matched to clinical indication); or iterative reconstruction. FINDINGS: Moderate right pleural effusion. Compressive atelectasis in the right lower lobe. Patchy infiltrates within the right hilum extending into the right upper lobe. Left lung is well aerated. Moderate aorti c calcification. Coronary calcification. Small esophageal hiatal hernia. Enlarged right hilar lymph n odes likely reactive. Calcified right hilar and subcarinal lymph nodes. Bilateral renal cortical atrophy. Adrenal glands are normal. Small bilateral renal cysts. Mild thorac ic kyphosis. Hypertrophic changes thoracic spine. CT/CT chest wo con [id number] IMPRESSION: 1. Moderate right pleural effusion with compressive atelectasis in right lower lobe. 2. Patchy right hilar infiltrates extending into the right upper lobe. Recomme nd correlation for pneumonia. Recommend follow-up to resolution. 3. Prominent right hilar lymph nodes nonspecific but likely reactive. 4. Vascular calcification including coronary. 5. Cardiomegaly.
--- NOTE | 2021-01-01 08:52 | PFTS_ITS ---
Date of Study:01/01/21 Date of Dictation: MECHANICS: Forced vital capacity (FVC) is reduced. Forced expiratory volume in one second (FEV1) is reduced. FEV1/FVC is normal. FLOW VOLUME LOOP: Narrow with scooping. LUNG VOLUMES: Total lung capacity (TLC) is increased. Residual volume (RV) is increased. DIFFUSING CAPACITY FOR CARBON MONOXIDE: Severely reduced. INTERPRETATION: The pulmonary function tests are consistent with nonspecific ventilatory limitation. His spirometry is consistent with severe restriction. However this is not supported by total lung capacity. The patient likely has a combination of obstructive and restrictive ventilatory defect. Lung volumes are consistent with hyperinflation and air trapping. Gas exchange (DLCO) is severely reduced. MTDD
== END 2021-01-01 07:01 | disposition home or self-care (01) ==
LOC: RT 07:00
PROVIDERS: PCP Emergency Medicine Emergency Medical Services; Visit Provider Internal Medicine Critical Care Medicine
DX: R06.02 Shortness of breath (principal); J90 Pleural effusion, not elsewhere classified; R91.8 Other nonspecific abnormal finding of lung field; I51.7 Cardiomegaly; I25.10 Atherosclerotic heart disease of native coronary artery without angina pectoris
CPT/HCPCS: 71250; 94060; 94726; 94729; J7611

== ENCOUNTER → 2021-02-25 10:12 | Outpatient (BNVA) | payer OTHER, SELFPAY | PROVIDERS: PCP Emergency Medicine Emergency Medical Services; Visit Provider Surgery | DX: Z11.52 Encounter for screening for COVID-19 (principal); N18.6 End stage renal disease; Z95.828 Presence of other vascular implants and grafts; Z99.2 Dependence on renal dialysis; Z20.822 Contact with and (suspected) exposure to COVID-19 | CPT/HCPCS: 87635 ==

== ENCOUNTER 2021-03-02 09:22 | Day surgery (SDC) | payer OTHER, SELFPAY ==
[2021-03-02] VITALS (7 sets, daily range): BP systolic 136–187; BP diastolic 75–89; PULSE 61–69; RESP 17–20; TEMP 35.9–36.4; O2SAT 61–95
--- NOTE | 2021-03-02 09:29 | W.PM.OPSUD ---
Surgery/Procedure H&P Update DATE OF PROCEDURE: March 02, 2021 DATE H&P PERFORMED: 02/20/21 H&P UPDATE INFORMATION: I have reviewed H&P completed within last 30 days, I have examined patient prior to procedure and No changes to prior documentation PREOP DIAGNOSIS: colon PLANNED PROCEDURE: Operation Date: 03/02/21 11:30 Proposed Procedures p Peritoneal Catheter Removal 23499 Z99.2(Not Applicable) - Reid Zamora MD
[2021-03-02] MEDS: sodium chloride 0.9% 1,000 ML 30 ML IV (09:54)
[2021-03-02 09:56] LABS: Glucose Point of Care 157 mg/dL (70-110)
[2021-03-02 10:47] LABS: Alanine Aminotransferase 14 U/L (0-41); Albumin Level 3.9 g/dL (3.5-5.2); Alkaline Phosphatase 80 IU/L (40-130); Anion Gap 14.9 (5-19); Aspartate Amino Transferase 12 U/L (0-40); Blood Urea Nitrogen 16 mg/dL (8-23); Carbon Dioxide 30 mmol/L (22-29); Chloride 96 mmol/L (98-107); Globulin 3.7 g/dL (1.3-4.6); Glucose 148 mg/dL (65-115); Osmolality Calculated 288 mOsm/kg (285-295); Potassium 3.9 mmol/L (3.5-5.1); Sodium 137 mmol/L (136-145); Total Bilirubin 0.4 mg/dL (0.15-1.2); Total Protein 7.6 g/dL (6.6-8.7)
--- NOTE | 2021-03-02 10:49 | ANES.PREANE2 ---
Pre-Anesthetic Assessment Pre-Anesthetic Assessment: Height/Weight: Height 1.78 m Temp Pulse Resp BP Pulse Ox 96.7 F L 62 18 136/89 61 L 03/02/21 09:41 03/02/21 09:41 03/02/21 09:41 03/02/21 09:41 03/02/21 09:41 Preop Diagnosis: colon Proposed Procedure: Operation Date: 03/02/21 11:30 Proposed Procedures p Peritoneal Catheter Removal 39531 Z99.2(Not Applicable) - Reid Zamora MD Familial anesthetic complications: None Was Beta Maciej taken within 24 hours: N/A Was Clonidine taken within 24 hours: N/A Last intake: Intake Last Liquid Date 03/01/21 Last Solid Date 03/01/21 Social: Social History: No alcohol and No tobacco Exam: Pre-Anes Outpt Exam: alert, oriented x 3, clear to auscultation bilaterally and regular rate & rhythm Airway: Cervical ROM: WNL MP: 4 Dentition: False Pulmonary: Pulmonary: COPD CV/HEM: CV/HEM: CAD, CHF and HTN Comments: pacemaker05/20/20 EF 55%, mod MVR 05/13/20 stress test negative : : Chronic renal failuer Metabolic: Metabolic: DM and Morbid obesity Anesthetic Plan: ASA status: 4 Anesthesia: General Risk of > 500 ml blood loss (7ml/kg in children): No Meds/Allergies Current Medications: Current Medications Generic Name Dose Route Start Last Admin Trade Name Freq PRN Reason Stop Dose Admin Sodium Chloride 1,000 mls @ 30 ml s/hr 03/02/21 09:30 03/02/21 09:54 Sodium Chloride 0.9% IV 03/03/21 09:29 30 mls/hr .Q24H GEORGE Administration PFSH Anesthesia PFSH: Medical History (Updated 02/20/21 @ 11:08 by Reid Zamora MD) Accelerated essential hypertension CAD (coronary artery disease) Diabetes mellitus ESRD (end stage renal disease) Hypercholesteremia Myocardial infarct Neuropathy MARAL (obstructive sleep apnea) Pacemaker Pneumonia Surgical History (Updated 02/20/21 @ 11:07 by Reid Zamora MD) Hemodialysis access, AV graft History of colonoscopy with polypectomy 2020 Peritoneal dialysis status S/P cardiac pacemaker procedure S/P cataract surgery S/P dialysis catheter insertion S/P PTCA (percutaneous transluminal coronary angioplasty) Family History Mother Heart disease Social History Smoking and tobacco status: former smoker Quit status (tobacco): has quit using tobacco Year quit tobacco: 1984 Former quit date comment: 3PPD x 17 Years Second hand smoke exposure: No Smoking risk assessment/counseling performed?: No Alcohol intake: never Counseling given: No Counseling given: No Lives independently: Yes Household members: spouse Housing: House Marital status: service: Yes Current occupational status: retired Pets and animals: No History of recent travel: No Current gender identity: Male Data Anesthesia CBC & Chem 7: 03/02/21 09:50 Other Labs: Laboratory Results - last 48 hr 03/02/21 03/02/21 09:50 09:52 Sodium 137 Potassium 3.9 Chloride 96 L Carbon Dioxide 30 H Anion Gap 14.9 BUN 16 Creatinine 2.3 H GFR Calculation Not Reportable Glucose 148 H POC Glucose 157 H Calculated Osmolality 288 Calcium 9.0 Total Bilirubin 0.4 AST 12 ALT 14 Alkaline Phosphatase 80 Total Protein 7.6 Albumin 3.9 Globulin 3.7 Cardiac Studies: No Data to Display
[2021-03-02] MEDS: lidocaine 1% INJ 20 mL SUBCUT (13:04)
--- NOTE | 2021-03-02 13:33 | PM.OP ---
Operative Report Date of procedure: March 02, 2021 Pre-op Diagnosis: 1. ESRD on hemodialysis 2. Removal of peritoneal dialysis catheter Post-op diagnosis: same Procedure Done: Removal of peritoneal dialysis catheter Ultrasound guidance and interpretation for removal of peritoneal dialysis catheter Pathology: none sent Surgeon: Reid Zamora Anesthesia: General Estimated blood loss (mL): 5 Condition: stable Disposition: PACU Procedure: The patient was taken to the operating room and intubated under general anesthesia after IV antibiotic had been administered. The abdomen was prepped and draped in sterile manner. Using ultrasound guidance the catheter was identified in the subcutaneous plane extending from the left upper quadrant down to the left lower quadrant, entering the peritoneal cavity through the left paramedian umbilical scar. Using 15 blade the existing scar in the left lower quadrant and left upper quadrant was incised, subcutaneous tissues identified using electrocautery and the catheter was dissected free from the surrounding scar tissue. The catheter was removed from the peritoneal cavity intact and the fascial defect was closed in a [id number] 0 Vicryl suture. The second cuff of the catheter was identified through the incision in the left upper quadrant and was dissected free from the surrounding subcutaneous tissue using electrocautery. At this point exteriorized catheter was cut at the 2 incisions and the entire catheter was removed in 3 pieces. There was no significant bleeding noted. The wound was irrigated with saline, subcutaneous tissue approximated using interrupted 3-0 Vicryl suture and skin was closed using running subcuticular 4-0 Monocryl suture and surgical glue. Pressure dressings were applied. The patient was extubated and transferred to recovery room in stable condition.
[2021-03-02] MEDS: oxyCODONE-APAP 5-325 mg Tablet 1 TAB PO (14:10)
--- NOTE | 2021-03-02 15:52 | ANE.PACU2 ---
Inpatient post-anesthesia follow up: Airway intact: Yes Vital signs: Temperature 97.6 F Pulse Rate 61 Respiratory Rate 18 Blood Pressure 153/86 Pulse Oximetry 91 Oxygen Delivery Me thod Room Air Oxygen Flow Rate 8 Fraction of Inspir ed Oxygen Hydration adequate: Yes Nausea and vomiting: No Pain level: 2 Mental status: Baseline
== END 2021-03-02 14:48 | disposition home or self-care (01) ==
PROVIDERS: Anesthesiology; PCP Emergency Medicine Emergency Medical Services; Visit Provider Surgery
PROC: (CPT 49422; principal; 2021-03-02 11:20)
DX: E11.22 Type 2 diabetes mellitus with diabetic chronic kidney disease (principal); I13.2 Hypertensive heart and chronic kidney disease with heart failure and with stage 5 chronic kidney disease, or end stage renal disease; I50.9 Heart failure, unspecified; N18.6 End stage renal disease; J44.9 Chronic obstructive pulmonary disease, unspecified; I25.10 Atherosclerotic heart disease of native coronary artery without angina pectoris; E66.01 Morbid (severe) obesity due to excess calories; Z95.0 Presence of cardiac pacemaker; I25.2 Old myocardial infarction; E78.00 Pure hypercholesterolemia, unspecified; Z87.891 Personal history of nicotine dependence
CPT/HCPCS: 49422; 36416; 80053; 82962; J0690; J2704; J3010; J3490; J7030

== ENCOUNTER 2021-07-13 05:03 | Inpatient (IN) | payer OTHER, MEDICARE, SELFPAY ==
[2021-07-13] VITALS (9 sets, daily range): BP systolic 133–163; BP diastolic 69–97; PULSE 61–64; RESP 16–28; TEMP 36.3–37; O2SAT 78–97; BMI 39.4
--- NOTE | 2021-07-13 05:12 | XRR_ITS ---
PROCEDURE INFORMATION: Exam: XR Chest Exam date and time: 07/13/2021 5:12 AM Age: 76 years old Clinical indication: Dyspnea; Prior surgery; Surgery date: 6+ months; Surgery type: Pacemaker; Additional info: SOB TECHNIQUE: Imaging protocol: XR of the chest. Views: 1 view. COMPARISON: DX Chest 2 views* [id number] 05/08/2021 9:14 AM FINDINGS: Tubes, catheters and devices: Pacemaker is placed via the left subclavian vein. EKG leads overlie the chest. Lungs: There is some indistinctness of the pulmonary vasculature. There are increased interstitial opacity seen bilaterally. There are few strandy opacities present lung bases likely representing atelectasis. Pleural spaces: Unremarkable. No pleural effusion. No pneumothorax. Heart/Mediastinum: Cardiac silhouette is prominent. Bones/joints: Unremarkable. XR/XR chest 1V portable [id number] IMPRESSION: 1. Indistinct pulmonary vasculature, prominent cardiac silhouette and bilateral increased interstitial opacities suggests pulmonary edema. Superimposed interstitial pneumonia cannot be entirely excluded. 2. Strandy opacities in the lung bases likely represents atelectasis. Radiation Dose CTDIVOL = (mGy): DLP = (mGy-cm)
--- NOTE | 2021-07-13 05:13 | ECG_ITS ---
[facility] Test Date: 2021-07-13 Pat Name: Shon Mullen Department: Room: Gender: Male Events Associate: : 1945 Requested By: Julia Pierre Order Number: [id number] Reading MD: KINSEY VIVAS Measurements Intervals [place] Rate: 63 P: [place]: QRS: -77 QRSD: 218 T: 102 QT: 515 QTc: 529 Interpretive Statements ELECTRONIC VENTRICULAR PACEMAKER ABNORMAL RHYTHM ECG Compared to ECG 11/11/2020 14:55:25 No significant changes Electronically Signed On 07-13-2021 21:56:59 CDT by KINSEY VIVAS [id number]
--- NOTE | 2021-07-13 05:14 | ED_ITS ---
Documented by User: Julia Pierre MD 07/13/21 05:22 HPI - SOB/Dyspnea General: Chief Complaint: Shortness of Breath/Dyspnea Stated Complaint: O2 Levels 78% Time Seen by Provider: 07/13/21 05:07 Source: patient Mode of arrival: ambulatory Limitations: no limitations History of Present Illness: HPI Narrative: 76-year-old male with a history of end-stage renal disease from diabetes and has been on dialysis for 3 years. He gets dialyzed Tuesday and states he was last dialyzed Tuesday. States he has been having increasing shortness of breath over the weekend and was sent here from his dialysis because his pulse ox was in the 70s. He is typically on 2 L of oxygen at home here on 6 L he is at 85%. He is in respiratory distress with tachypnea able to speak in 2-4 word sentences. He denies any chest pain denies any cough or fever denies any sick contacts. Associated symptoms: Deny abdominal pain, chest pain, fever(s), nausea or vomiting Review of Systems Const: Denies: fever(s), chills, body aches or change in appetite Eyes: Denies: blurry vision or eye discomfort ENMT: Denies: throat pain or dental pain Card: Denies: chest pain Resp: Reports: dyspnea GI: Denies: abdominal pain, nausea, vomiting or diarrhea : Denies: dysuria Musc: Denies: neck pain or back pain Skin/Breast: Denies: rash Neuro: Denies: headache(s) Psych: Denies: depression Nas/Lymph: Denies: easy bruising All/Imm: Denies: urticaria PFSH ED PFSH: Medical History Accelerated essential hypertension CAD (coronary artery disease) Diabetes mellitus ESRD (end stage renal disease) Hypercholesteremia Myocardial infarct Neuropathy MARAL (obstructive sleep apnea) Pacemaker Pneumonia Surgical History Hemodialysis access, AV graft History of colonoscopy with polypectomy 2020 Peritoneal dialysis status (03/02/21) removed S/P cardiac pacemaker procedure S/P cataract surgery S/P PTCA (percutaneous transluminal coronary angioplasty) Family History Mother Heart disease Social History Smoking and tobacco status: former smoker Quit status (tobacco): has quit using tobacco Year quit tobacco: 1984 Former quit date comment: 3PPD x 17 Years Second hand smoke exposure: No Smoking risk assessment/counseling performed?: No Alcohol intake: never Counseling given: No Counseling given: No Lives independently: Yes Household members: spouse Housing: House Marital status: service: Yes Current occupational status: retired Pets and animals: No History of recent travel: No Current gender identity: Male Physical Exam Const: COMMON NORMALS: patient oriented x3 and healthy appearing GENERAL APPEARANCE: in distress HENMT: COMMON NORMALS: normocephalic and atraumatic HEAD & SCALP: normocephalic and atraumatic Eye: COMMON NORMALS: Equal, round and reactive pupils present and EOMs intact bilaterally PUPIL: Yes Equal, round and reactive pupils present Neck/C-Spine: COMMON NORMALS: full ROM and supple Chest: COMMONS NORMALS: normal inspection of the chest and normal palpation of entire chest wall Resp: EFFORT & INSPECTION: Yes tachypneic and Yes respiratory distress AUSCULTATION: rales Cardio: COMMON NORMALS: regular rate, regular rhythm and No murmurs present (Cardio) RATE: regular rate RHYTHM: regular rhythm GI: COMMON NORMALS: Normal to inspection, nondistended, normoactive bowel sounds present, Soft to palpation, non-tender and no masses PALPATION: Yes Soft to palpation Extremity: COMMON NORMALS: normal to inspection and full ROM Neuro: COMMON NORMALS: patient oriented x3, moves all extremities and no focal motor deficits Psych: COMMON NORMALS: mental status grossly normal, Normal thought process present and cooperative THOUGHT PROCESS: Normal thought process present Skin: COMMON NORMALS: no rashes or lesions noted and no wounds GENERAL SKIN EXAM: no rashes or lesions noted Course Vital Signs: Vital signs: Vital Signs Temperature 97.8 F 07/13/21 05:07 Pulse Rate 61 07/13/21 07:18 Respiratory Rate 16 07/13/21 07:18 Blood Pressure 133/73 07/13/21 07:18 Pulse Oximetry 95 07/13/21 07:18 MDM - SOB/Dyspnea 2 Lab Data: Labs: Lab Results 07/13/21 07/13/21 07/13/21 05:15 05:15 05:15 WBC 8.6 10^3/uL 10^3/ uL (4.0-10.0) RBC 3.52 10^6/uL L 10 ^6/uL (4.1-5.3) Hgb 10.6 g/dL L g/dL (11.7-16.6) Hct 33.5 % L % (42.0-52.0) MCV 95.2 fl H fl (80-94) MCH 30.1 pg pg (28.0-34.0) MCHC 31.6 g/dL g/dL (30.0-36.0) RDW 17.1 % H % (12.1-15.1) Plt Count 205 10^3/cmm 10^3 /cmm (130-400) MPV 9.4 fL fL (7.4-10.4) Neut % (Auto) 71.0 % % Lymph % (Auto) 17.0 % % [place] % (Auto) 8.4 % % Eos % (Auto) 2.5 % % Baso % (Auto) 0.6 % % Neut # (Auto) 6.08 10^3/uL 10^3 /uL (1.8-7.7) Lymph # (Auto) 1.5 10^3/uL 10^3/ uL (0.8-4.8) [place] # (Auto) 0.7 10^3/uL 10^3/ uL (0.2-0.9) Eos # (Auto) 0.2 10^3/uL 10^3/ uL (0.0-0.8) Baso # (Auto) 0.1 10^3/uL 10^3/ uL (0.0-0.1) Nucleated RBC % (a uto) 0 % % Nucleated RBCs # 0.0 /100WBC /100W BC PT 16.10 SECONDS H S ECONDS (12.1-14.9) INR 1.26 H (0.8-1.2) Specimen Type Sample Site ABG pH ABG pCO2 ABG pO2 ABG HCO3 ABG Base Excess Carlito Test Hematocrit Hgb O2 Saturation Carboxyhemoglobin Methemoglobin Total Hemoglobin O2 Delivery Device FiO2 Furniture [employer] Production Worker ID Sodium 136 mmol/L mmol/L (136-145) Potassium 3.8 mmol/L mmol/L (3.5-5.1) Chloride 94 mmol/L L mmol/ L (98-107) Carbon Dioxide 22 mmol/L mmol/L (22-29) Anion Gap 23.8 H (5-19) BUN 44 mg/dL H mg/dL (8-23) Creatinine 4.3 mg/dL H mg/dL (0.7-1.2) GFR Calculation Not Reportable Glucose 194 mg/dL H mg/dL (65-115) Calculated Osmolal ity 298 mOsm/kg H mOs m/kg (285-295) Calcium 9.7 mg/dL mg/dL (8.5-10.5) Total Bilirubin 0.3 mg/dL mg/dL (0.15-1.2) AST 10 U/L U/L (0-40) ALT 12 U/L U/L (0-41) Alkaline Phosphata se 77 IU/L IU/L (40-130) Troponin T Baselin e Troponin T 120 Min [place] Troponin T NT-Pro-B Natriuret Pep 73751 pg/mL H pg/ mL (0-125) Total Protein 7.5 g/dL g/dL (6.6-8.7) Albumin 3.8 g/dL g/dL (3.5-5.2) Globulin 3.7 g/dL g/dL (1.3-4.6) SARS-CoV-2 Ag (Rap id) 07/13/21 07/13/21 07/13/21 05:15 05:20 05:40 WBC RBC Hgb Hct MCV MCH MCHC RDW Plt Count MPV Neut % (Auto) Lymph % (Auto) [place] % (Auto) Eos % (Auto) Baso % (Auto) Neut # (Auto) Lymph # (Auto) [place] # (Auto) Eos # (Auto) Baso # (Auto) Nucleated RBC % (a uto) Nucleated RBCs # PT INR Specimen Type Arterial Sample Site Radial, left ABG pH 7.40 (7.35-7.45) ABG pCO2 40.9 mmHg mmHg (35-45) ABG pO2 73.0 mmHg L mmHg (80.0-100.0) ABG HCO3 25.3 mmol/L mmol/ L (22-26) ABG Base Excess 0.4 mmol/L mmol/L (-2.0-2.0) Carlito Test Pos Hematocrit 34.2 % L % (42-52) Hgb O2 Saturation 93.1 % L % (95-100) Carboxyhemoglobin 1.6 %THgb %THgb (0.4-20.1) Methemoglobin 0.3 % L % (0.4-1.5) Total Hemoglobin 11.2 g/dL L g/dL (14-18) O2 Delivery Device Bipap FiO2 40.0 % % Furn[employer] Worker ID glc Sodium Potassium Chloride Carbon Dioxide Anion Gap BUN Creatinine GFR Calculation Glucose Calculated Osmolal ity Calcium Total Bilirubin AST ALT Alkaline Phosphata se Troponin T Baselin e 82 ng/L H ng/L (0-15) Troponin T 120 Min [place] Troponin T NT-Pro-B Natriuret Pep Total Protein Albumin Globulin SARS-CoV-2 Ag (Rap id) Negative (Negative) 07/13/21 07:21 WBC RBC Hgb Hct MCV MCH MCHC RDW Plt Count MPV Neut % (Auto) Lymph % (Auto) [place] % (Auto) Eos % (Auto) Baso % (Auto) Neut # (Auto) Lymph # (Auto) [place] # (Auto) Eos # (Auto) Baso # (Auto) Nucleated RBC % (a uto) Nucleated RBCs # PT INR Specimen Type Sample Site ABG pH ABG pCO2 ABG pO2 ABG HCO3 ABG Base Excess Carlito Test Hematocrit Hgb O2 Saturation Carboxyhemoglobin Methemoglobin Total Hemoglobin O2 Delivery Device FiO2 [employer] Worker ID Sodium Potassium Chloride Carbon Dioxide Anion Gap BUN Creatinine GFR Calculation Glucose Calculated Osmolal ity Calcium Total Bilirubin AST ALT Alkaline Phosphata se Troponin T Baselin e Troponin T 120 Min [place] 73.33 ng/L H ng/L (0-15) [place] Troponin T -8.67 ABS# L ABS# (0-10) NT-Pro-B Natriuret Pep Total Protein Albumin Globulin SARS-CoV-2 Ag (Rap id) EKG Data^: EKG 1: Attestation: I personally reviewed and interpreted this EKG as follows: EKG Interpretation Date: 07/13/21 EKG interpretation time: 05:19 Interpretation: paced hr [address] or t wave abnormalities qrs 218 qtc 522 Discharge Plan Discharge Patient Disposition: Admitted As Inpatient Clinical Impression: Heart failure, Renal failure Condition: Stable Sign Out Sign Out Data: Patient Sign Out occurred on 07/13/21 at 06:11. Patient's care was discussed, and care was transferred from to Edgardo Lorenz DO. Coding Level of Care Code ED Associate Account Manager for Chg Fwd Exam Comprehensive Documented by User: Edgardo Lorenz DO 07/13/21 08:14 HPI - SOB/Dyspnea General: Chief Complaint: Shortness of Breath/Dyspnea Stated Complaint: O2 Levels 78% Time Seen by Provider: 07/13/21 05:07 PFSH ED PFSH: Medical History Accelerated essential hypertension CAD (coronary artery disease) Diabetes mellitus ESRD (end stage renal disease) Hypercholesteremia Myocardial infarct Neuropathy MARAL (obstructive sleep apnea) Pacemaker Pneumonia Surgical History Hemodialysis access, AV graft History of colonoscopy with polypectomy 2020 Peritoneal dialysis status (03/02/21) removed S/P cardiac pacemaker procedure S/P cataract surgery S/P PTCA (percutaneous transluminal coronary angioplasty) Family History Mother Heart disease Social History Smoking and tobacco status: former smoker Quit status (tobacco): has quit using tobacco Year quit tobacco: 1984 Former quit date comment: 3PPD x 17 Years Second hand smoke exposure: No Smoking risk assessment/counseling performed?: No Alcohol intake: never Counseling given: No Counseling given: No Lives independently: Yes Household members: spouse Housing: House Marital status: service: Yes Current occupational status: retired Pets and animals: No History of recent travel: No Current gender identity: Male Course Vital Signs: Vital signs: Vital Signs Temperature 97.8 F 07/13/21 05:07 Pulse Rate 61 07/13/21 07:18 Respiratory Rate 16 07/13/21 07:18 Blood Pressure 133/73 11/01/21 07:18 Pulse Oximetry 95 07/13/21 07:18 MDM - SOB/Dyspnea MDM Narrative: Medical decision making narrative: Care assumed at change of shift. Patient appears to be fluid overloaded we will do for dialysis this morning. He has improved on BiPAP. His FiO2 is at 40% on bipap. He will require admission for treatment for CHF including dialysis. Discussed with Dr. Tam and Dr. Coley. Orders written. Lab Data: Labs: Lab Results 07/13/21 07/13/21 07/13/21 05:15 05:15 05:15 WBC 8.6 10^3/uL 10^3/ uL (4.0-10.0) RBC 3.52 10^6/uL L 10 ^6/uL (4.1-5.3) Hgb 10.6 g/dL L g/dL (11.7-16.6) Hct 33.5 % L % (42.0-52.0) MCV 95.2 fl H fl (80-94) MCH 30.1 pg pg (28.0-34.0) MCHC 31.6 g/dL g/dL (30.0-36.0) RDW 17.1 % H % (12.1-15.1) Plt Count 205 10^3/cmm 10^3 /cmm (130-400) MPV 9.4 fL fL (7.4-10.4) Neut % (Auto) 71.0 % % Lymph % (Auto) 17.0 % % [place] % (Auto) 8.4 % % Eos % (Auto) 2.5 % % Baso % (Auto) 0.6 % % Neut # (Auto) 6.08 10^3/uL 10^3 /uL (1.8-7.7) Lymph # (Auto) 1.5 10^3/uL 10^3/ uL (0.8-4.8) [place] # (Auto) 0.7 10^3/uL 10^3/ uL (0.2-0.9) Eos # (Auto) 0.2 10^3/uL 10^3/ uL (0.0-0.8) Baso # (Auto) 0.1 10^3/uL 10^3/ uL (0.0-0.1) Nucleated RBC % (a uto) 0 % % Nucleated RBCs # 0.0 /100WBC /100W BC PT 16.10 SECONDS H S ECONDS (12.1-14.9) INR 1.26 H (0.8-1.2) Specimen Type Sample Site ABG pH ABG pCO2 ABG pO2 ABG HCO3 ABG Base Excess Carlito Test Hematocrit Hgb O2 Saturation Carboxyhemoglobin Methemoglobin Total Hemoglobin O2 Delivery Device FiO2 [employer] Worker ID Sodium 136 mmol/L mmol/L (136-145) Potassium 3.8 mmol/L mmol/L (3.5-5.1) Chloride 94 mmol/L L mmol/ L (98-107) Carbon Dioxide 22 mmol/L mmol/L (22-29) Anion Gap 23.8 H (5-19) BUN 44 mg/dL H mg/dL (8-23) Creatinine 4.3 mg/dL H mg/dL (0.7-1.2) GFR Calculation Not Reportable Glucose 194 mg/dL H mg/dL (65-115) Calculated Osmolal ity 298 mOsm/kg H mOs m/kg (285-295) Calcium 9.7 mg/dL mg/dL (8.5-10.5) Total Bilirubin 0.3 mg/dL mg/dL (0.15-1.2) AST 10 U/L U/L (0-40) ALT 12 U/L U/L (0-41) Alkaline Phosphata se 77 IU/L IU/L (40-130) Troponin T Baselin e Troponin T 120 Min [place] Troponin T NT-Pro-B Natriuret Pep 92398 pg/mL H pg/ mL (0-125) Total Protein 7.5 g/dL g/dL (6.6-8.7) Albumin 3.8 g/dL g/dL (3.5-5.2) Globulin 3.7 g/dL g/dL (1.3-4.6) SARS-CoV-2 Ag (Rap id) 07/13/21 07/13/21 07/13/21 05:15 05:20 05:40 WBC RBC Hgb Hct MCV MCH MCHC RDW Plt Count MPV Neut % (Auto) Lymph % (Auto) [place] % (Auto) Eos % (Auto) Baso % (Auto) Neut # (Auto) Lymph # (Auto) [place] # (Auto) Eos # (Auto) Baso # (Auto) Nucleated RBC % (a uto) Nucleated RBCs # PT INR Specimen Type Arterial Sample Site Radial, left ABG pH 7.40 (7.35-7.45) ABG pCO2 40.9 mmHg mmHg (35-45) ABG pO2 73.0 mmHg L mmHg (80.0-100.0) ABG HCO3 25.3 mmol/L mmol/ L (22-26) ABG Base Excess 0.4 mmol/L mmol/L (-2.0-2.0) Carlito Test Pos Hematocrit 34.2 % L % (42-52) Hgb O2 Saturation 93.1 % L % (95-100) Carboxyhemoglobin 1.6 %THgb %THgb (0.4-20.1) Methemoglobin 0.3 % L % (0.4-1.5) Total Hemoglobin 11.2 g/dL L g/dL (14-18) O2 Delivery Device Bipap FiO2 40.0 % % Furniture [employer] Production Worker ID glc Sodium Potassium Chloride Carbon Dioxide Anion Gap BUN Creatinine GFR Calculation Glucose Calculated Osmolal ity Calcium Total Bilirubin AST ALT Alkaline Phosphata se Troponin T Baselin e 82 ng/L H ng/L (0-15) Troponin T 120 Min [place] Troponin T NT-Pro-B Natriuret Pep Total Protein Albumin Globulin SARS-CoV-2 Ag (Rap id) Negative (Negative) 07/13/21 07:21 WBC RBC Hgb Hct MCV MCH MCHC RDW Plt Count MPV Neut % (Auto) Lymph % (Auto) [place] % (Auto) Eos % (Auto) Baso % (Auto) Neut # (Auto) Lymph # (Auto) [place] # (Auto) Eos # (Auto) Baso # (Auto) Nucleated RBC % (a uto) Nucleated RBCs # PT INR Specimen Type Sample Site ABG pH ABG pCO2 ABG pO2 ABG HCO3 ABG Base Excess Carlito Test Hematocrit Hgb O2 Saturation Carboxyhemoglobin Methemoglobin Total Hemoglobin O2 Delivery Device FiO2 Furn[employer] Worker ID Sodium Potassium Chloride Carbon Dioxide Anion Gap BUN Creatinine GFR Calculation Glucose Calculated Osmolal ity Calcium Total Bilirubin AST ALT Alkaline Phosphata se Troponin T Baselin e Troponin T 120 Min [place] 73.33 ng/L H ng/L (0-15) Delta Troponin T -8.67 ABS# L ABS# (0-10) NT-Pro-B Natriuret Pep Total Protein Albumin Globulin SARS-CoV-2 Ag (Rap id) Discharge Plan Discharge Patient Disposition: Admitted As Inpatient Clinical Impression: Heart failure, Renal failure Condition: Stable Sign Out Sign Out Data: Patient Sign Out occurred on 07/13/21 at 06:11. Patient's care was discussed, and care was transferred from to Edgardo Lorenz DO. Coding Level of Care Code ED Associate Account Manager for Aurelia Fwd Exam Comprehensive
[2021-07-13 05:30] LABS: Basophils # 0.1 10^3/uL (0.0-0.1); Basophils % 0.6 %; Eosinophils # 0.2 10^3/uL (0.0-0.8); Eosinophils % 2.5 %; Hematocrit 33.5 % (42.0-52.0); Hemoglobin 10.6 g/dL (11.7-16.6); Lymphocytes # 1.5 10^3/uL (0.8-4.8); Mean Corpuscular HGB Conc 31.6 g/dL (30.0-36.0); Mean Corpuscular Hemoglobin 30.1 pg (28.0-34.0); Mean Corpuscular Volume 95.2 fl (80-94); Mean Platelet Volume 9.4 fL (7.4-10.4); Monocytes # 0.7 10^3/uL (0.2-0.9); Monocytes % 8.4 %; Neutrophils # 6.08 10^3/uL (1.8-7.7); Nucleated Red Blood Cells % 0 %; Platelet Count 205 10^3/cmm (130-400); Red Blood Count 3.52 10^6/uL (4.1-5.3); Red Cell Distribution Width 17.1 % (12.1-15.1); White Blood Count 8.6 10^3/uL (4.0-10.0)
[2021-07-13 05:40] LABS: INR 1.26 (0.8-1.2)
[2021-07-13 05:46] LABS: SARS Covid-2 Antigen Negative (Negative)
[2021-07-13 05:49] LABS: Troponin(5th) Baseline 82 ng/L (0-15)
[2021-07-13 05:50] LABS: ABG PCO2 40.9 mmHg (35-45); Arterial Blood Gas Hematocrit 34.2 % (42-52); Base Excess ABG 0.4 mmol/L (-2.0-2.0); Blood Gas Allen Test Pos; Blood Gas Operator Identificat glc; Blood Gas Sample Site Radial, left; Blood Gas Sample Type Arterial; Carboxyhemoglobin 1.6 %THgb (0.4-20.1); HCO3 ABG 25.3 mmol/L (22-26); HGB O2 Sat 93.1 % (95-100); Methemoglobin 0.3 % (0.4-1.5); Oxygen Device BIPAP; Total Hemoglobin 11.2 g/dL (14-18)
[2021-07-13 05:59] LABS: Alanine Aminotransferase 12 U/L (0-41); Albumin Level 3.8 g/dL (3.5-5.2); Alkaline Phosphatase 77 IU/L (40-130); Anion Gap 23.8 (5-19); Aspartate Amino Transferase 10 U/L (0-40); Blood Urea Nitrogen 44 mg/dL (8-23); Calcium 9.7 mg/dL (8.5-10.5); Carbon Dioxide 22 mmol/L (22-29); Chloride 94 mmol/L (98-107); Globulin 3.7 g/dL (1.3-4.6); Glucose 194 mg/dL (65-115); NT Pro B Type Natriuretic Pept 12339 pg/mL (0-125); Osmolality Calculated 298 mOsm/kg (285-295); Potassium 3.8 mmol/L (3.5-5.1); Sodium 136 mmol/L (136-145); Total Bilirubin 0.3 mg/dL (0.15-1.2); Total Protein 7.5 g/dL (6.6-8.7)
--- NOTE | 2021-07-13 07:13 | ECG_ITS ---
[facility] Test Date: 2021-07-13 Pat Name: Shon Mullen Department: Room: Gender: Male Director Of Conservation: : 1945 Requested By: Julia Pierre Order Number: [id number] Reading MD: KINSEY VIVAS Measurements Intervals [place] Rate: 61 P: 243 WV: 217 QRS: -75 QRSD: 227 T: 104 QT: 575 QTc: 580 Interpretive Statements ELECTRONIC VENTRICULAR PACEMAKER PROLONGED QT INTERVAL CRITICAL TEST RESULT Compared to ECG 07/13/2021 06:04:59 Prolonged QT interval now present Electronically Signed On 07-13-2021 21:59:22 CDT by KINSEY VIVAS [id number]
[2021-07-13 07:44] LABS: Troponin 5 2HR 73.33 ng/L (0-15)
--- NOTE | 2021-07-13 08:07 | PM.CONSULT ---
Providers/Reason For Consult Consulting Physician/Specialty*: eugenia jurado md / telemedicine Reason for Consult*: ESRD care Requesting Physician: Dr. Hayward and Hospitalist staff Primary Care Provider: Adria Artis DO History of Present Illness History of Present Illness Shon Mullen is a 76 year old male ESRD MWF. Pt sent from dialysis clinic this morning for SOB and hypoxemia- renal called to provide HD as pt is hypoxic on BiPAP. Pt has h/o morbid obesity, DM w/ aneta, CAD, a fib s/p PPM, moderate MR, restrivtive lung disease. Review of Systems General: Reports: 10 or more systems reviewed and unremarkable except in HPI and below Narrative: SON, COBIAN, edema Meds/Allergies Home Medications and Allergies Home Medications Medication Instructions Recorded Confirmed Last Taken Type aspirin 81 mg tablet,delayed 81 mg PO DAILY@10/02/19 03/24/21 02/26/21 History release atorvastatin 80 mg tablet 80 mg PO DAILY@1800 10/02/19 03/24/21 03/01/21 History cetirizine 10 mg capsule 10 mg PO DAILY@10/02/19 03/24/21 03/01/21 History nifedipine 60 mg tablet,extended 60 mg PO DAILY@10/02/19 03/24/21 03/01/21 History release nitroglycerin 0.4 mg sublingual 0.4 mg SUBLINGUAL Q5M PRN 10/02/19 03/24/21 09/18/20 History tablet epoetin beta, methoxy peg 30 30 mcg SUBCUT Q14D ml 11/07/19 03/24/21 09/18/20 History mcg/0.3 mL injection syringe gabapentin 300 mg capsule 300 mg PO BID@ cap 11/07/19 03/24/21 03/01/21 History sevelamer carbonate 800 mg tablet 2,400 mg PO TID@,, tab 11/07/19 03/24/21 03/01/21 History famotidine 20 mg tablet 20 mg PO BID@,04/16/20 03/24/21 03/01/21 History liraglutide (weight loss) 3 mg/0.5 3 mg SUBCUT DAILY@04/16/20 03/24/21 01/31/21 History mL (18 mg/3 mL) subcut pen injector omega-3 fatty acids 1,000 mg 1,000 mg PO BID@,18 cap 04/16/20 03/24/21 03/01/21 History capsule vitamin B comp no.3-folic acid 1 1 tab PO DAILY@04/16/20 03/24/21 03/01/21 History mg-vit C 60 mg-biotin 300 mcg tablet insulin glargine 100 unit/mL (3 50 unit SUBCUT DAILY@ ml 07/24/20 03/24/21 03/01/21 History mL) subcutaneous pen spironolactone 25 mg tablet 25 mg PO DAILY@07/24/20 03/24/21 03/01/21 History docusate sodium 200 mg PO BID@09/17/20 03/24/21 03/01/21 History Eliquis 5 mg PO BID@,11/11/20 03/24/21 02/26/21 History allopurinol 100 mg PO DAILY PRN 11/11/20 03/24/21 01/31/21 History oxycodone-acetaminophen 1 tab PO BID PRN 11/11/20 03/24/21 03/01/21 History polyethylene glycol 3350 [Miralax] 17 g PO DAILY PRN 11/11/20 03/24/21 03/01/21 History albuterol sulfate 90 mcg/actuation 2 puff INHALATION Q6H PRN 30 Days 01/02/21 03/24/21 02/23/21 Rx aerosol inhaler #8.5 g tiotropium 2.5 mcg-olodaterol 2.5 2 puff INHALATION DAILY #4 g 03/24/21 03/24/21 Unknown Rx mcg/actuation mist for inhalation Allergies Allergy/AdvReac Type Severity Reaction Status Date / Time ciprofloxacin [From Cipro] Allergy rash Verified 03/24/21 13:41 felodipine Allergy rash Verified 03/24/21 13:41 sulfamethoxazole Allergy rash Verified 03/24/21 13:41 [From Septra] trimethoprim [From Septra] Allergy rash Verified 03/24/21 13:41 PFSH Acute PFSH: Medical History Accelerated essential hypertension CAD (coronary artery disease) Diabetes mellitus ESRD (end stage renal disease) Hypercholesteremia Myocardial infarct Neuropathy MARAL (obstructive sleep apnea) Pacemaker Pneumonia Surgical History Hemodialysis access, AV graft History of colonoscopy with polypectomy 2020 Peritoneal dialysis status (03/02/21) removed S/P cardiac pacemaker procedure S/P cataract surgery S/P PTCA (percutaneous transluminal coronary angioplasty) Family History Mother Heart disease Social History Smoking and tobacco status: former smoker Quit status (tobacco): has quit using tobacco Year quit tobacco: 1984 Former quit date comment: 3PPD x 17 Years Second hand smoke exposure: No Smoking risk assessment/counseling performed?: No Alcohol intake: never Counseling given: No Counseling given: No Lives independently: Yes Household members: spouse Housing: House Marital status: service: Yes Current occupational status: retired Pets and animals: No History of recent travel: No Current gender identity: Male Vitals/I&O/Wt Last Vital Signs Temp 97.8 F 07/13/21 05:07 Pulse 61 07/13/21 07:18 Resp 16 07/13/21 07:18 BP 133/73 07/13/21 07:18 Pulse Ox 95 07/13/21 07:18 Weight last 48 hrs Weight 124.738 kg Physical Exam Narrative: EXAM NARRATIVE: obese man on BiPAP- SOB vs noted heent- nc/at, eomi, anicteric neck obese, supple lungs dull bases, b/l crackles heart- irreg, +BOBBY abd soft, nt, + bs ext- RUE AVG w/ thrill and bruit legs w/ edema neuro- sleepy A&P Additional A&P Information 76 yr old man 1. ESRD- SOB- will dialyze now for 4 hrs- 3 k bath- remove 3l 2. SOB, volume overload, Moderate MR- per Cardiology and Medicine -bnp [id number]- monitor w/ HD -abg- 7.4.41/73- compensated pH 3.hgb okay for ESRD 4. renal bone mineral metabolism- check vit d, pth -monitor ca, phos 5. restrictive lung disease- known to Dr. Adan 6. DM care Consult Attestations Medical Necessity Statement: ESRD, mSOB on bipap Time Spent in Patient Care: Greater than 35 minutes (>than 50% of time spent in counselling and/or direct pt care on unit). Coding Level of Care Code Acute Antisqueak Worker for Aurelia Chaudhari
--- NOTE | 2021-07-13 08:50 | PC.PHAR ---
pts verified pts medications-va faxed medication list also
--- NOTE | 2021-07-13 10:26 | PM.HP ---
Providers/Chief Complaint Primary Care Provider: Adria Artis DO Chief Complaint: O2 Levels 78% History of Present Illness Shon Mullen is a 76 year old male with end-stage renal disease on hemodialysis who presents from home with increasing shortness of breath since Tuesday. He reports he has not had a cough, chest discomfort, fever, vomiting, diarrhea. He has been vaccinated for Covid with both immunizations, the last one in March. He has not had any exposure to anybody with Covid nor does he have a history of Covid. He is typically maintained on just 2 L of oxygen secondary to restrictive lung disease and small airway disease. Dialysis nurse relates that he occasionally will cramp and will occasionally reduce amount of fluid removed but for the most part they can remove adequate amount of fluid with dialysis. He has not missed any dialysis lately. In the emergency department he was noted to be hypoxic, and testing indicated pulmonary edema. He was placed on BiPAP and nephrology was called for hemodialysis. Review of Systems General: Reports: 10 or more systems reviewed and unremarkable except in HPI and below Const: Denies: fever(s) or chills Eyes: Denies: change in vision ENMT: Denies: throat pain Card: Denies: chest pain Resp: Reports: dyspnea; Denies: productive cough, non-productive cough or wheezing GI: Denies: abdominal pain, nausea or vomiting : Denies: flank pain Musc: Denies: neck pain Skin/Breast: Denies: rash Neuro: Denies: headache(s) Psych: Denies: anxiety or depression Endo: Denies: polyuria Nas/Lymph: Denies: easy bruising All/Imm: Denies: urticaria Medications/Allergies Home Medications Medication Instructions Recorded Confirmed Last Taken Type aspirin 81 mg tablet,delayed 81 mg PO DAILY@10/02/19 07/13/21 07/12/21 History release atorvastatin 80 mg tablet 80 mg PO DAILY@1800 10/02/19 07/13/21 07/12/21 History cetirizine 10 mg capsule 10 mg PO DAILY@10/02/19 07/13/21 07/12/21 History nifedipine 60 mg tablet,extended 60 mg PO DAILY@10/02/19 07/13/21 07/12/21 History release nitroglycerin 0.4 mg sublingual 0.4 mg SUBLINGUAL Q5M PRN 10/02/19 07/13/21 09/18/20 History tablet epoetin beta, methoxy peg 30 60 mcg SUBCUT Q14D ml 11/07/19 07/13/21 07/03/21 History mcg/0.3 mL injection syringe gabapentin 300 mg capsule 300 mg PO BID@,18 cap 11/07/19 07/13/21 07/12/21 History sevelamer carbonate 800 mg tablet 2,400 mg PO TID@,, tab 11/07/19 07/13/21 07/12/21 History famotidine 20 mg tablet 20 mg PO BID@,04/16/20 07/13/21 07/12/21 History liraglutide (weight loss) 3 mg/0.5 3 mg SUBCUT DAILY PRN 04/16/20 07/13/21 01/31/21 History mL (18 mg/3 mL) subcut pen injector omega-3 fatty acids 1,000 mg 1,000 mg PO BID@, cap 04/16/20 07/13/21 07/12/21 History capsule spironolactone 25 mg tablet 25 mg PO DAILY@07/24/20 07/13/21 07/12/21 History docusate sodium 200 mg PO BID@,09/17/20 07/13/21 07/12/21 History Eliquis 5 mg PO BID@,11/11/20 07/13/21 07/12/21 History allopurinol 100 mg PO DAILY PRN 11/11/20 07/13/21 01/31/21 History oxycodone-acetaminophen 1 tab PO BID PRN 11/11/20 07/13/21 03/01/21 History polyethylene glycol 3350 [Miralax] 17 g PO DAILY PRN 11/11/20 07/13/21 03/01/21 History albuterol sulfate 90 mcg/actuation 2 puff INHALATION Q6H PRN 30 Days 01/02/21 07/13/21 02/23/21 Rx aerosol inhaler #8.5 g B complex-vitamin C-folic acid 1 tab PO DAILY@07/13/21 07/13/21 07/12/21 History [Renal Multivitamin Formula] albuterol sulfate 2.5 mg INHALATION Q6H PRN 07/13/21 07/13/21 Unknown History cholecalciferol (vitamin D3) 50,000 unit PO Q7D 07/13/21 07/13/21 07/12/21 History cinacalcet 30 mg PO .THREE TIMES A WEEK 07/13/21 07/13/21 Unknown History gentamicin 1 applic TOPICAL TID PRN 07/13/21 07/13/21 Unknown History insulin glargine [Lantus U-100 50 unit SUBCUT QAM 07/13/21 07/13/21 07/12/21 History Insulin] lidocaine-prilocaine 1 applic TOPICAL TID PRN 07/13/21 07/13/21 Unknown History tiotropium-olodaterol [Stiolto 2 puff INHALATION QAM 07/13/21 07/13/21 07/12/21 History Respimat] Allergies Allergy/AdvReac Type Severity Reaction Status Date / Time ciprofloxacin [From Cipro] Allergy rash Verified 07/13/21 08:42 felodipine Allergy rash Verified 07/13/21 08:42 sulfamethoxazole Allergy rash Verified 07/13/21 08:42 [From Septra] trimethoprim [From Septra] Allergy rash Verified 07/13/21 08:42 PFSH Acute PFSH: Medical History (Updated 07/13/21 @ 10:47 by Ron Piña MD) Accelerated essential hypertension Atrial fibrillation CAD (coronary artery disease) Diabetes mellitus ESRD (end stage renal disease) Hypercholesteremia Myocardial infarct Neuropathy MARAL (obstructive sleep apnea) Pacemaker Pneumonia Surgical History Hemodialysis access, AV graft History of colonoscopy with polypectomy 2020 Peritoneal dialysis status (03/02/21) removed S/P cardiac pacemaker procedure S/P cataract surgery S/P PTCA (percutaneous transluminal coronary angioplasty) Family History Mother Heart disease Social History Smoking and tobacco status: former smoker Quit status (tobacco): has quit using tobacco Year quit tobacco: 1984 Former quit date comment: 3PPD x 17 Years Second hand smoke exposure: No Smoking risk assessment/counseling performed?: No Alcohol intake: never Counseling given: No Counseling given: No Lives independently: Yes Household members: spouse Housing: House Marital status: service: Yes Current occupational status: retired Pets and animals: No History of recent travel: No Current gender identity: Male Vitals/I&O/Wt Last Vital Signs Temp 97.8 F 07/13/21 05:07 Pulse 64 07/13/21 10:06 Resp 22 H 07/13/21 10:06 BP 154/82 07/13/21 09:39 Pulse Ox 97 07/13/21 10:06 Weight last 48 hrs Weight 124.738 kg Physical Exam Narrative: EXAM NARRATIVE: General exam is a white male, on BiPAP, reporting he feels much less short of breath on BiPAP. He is currently receiving hemodialysis. HEENT: Pupils equally round. Oropharynx clear. Neck is supple no lymphadenopathy thyromegaly Cardiovascular regular rate and rhythm, heart sounds distant Lungs clear no wheezing or crackles Abdomen obese nontender with positive bowel sounds. exam deferred Extremities 1+ bilateral edema. No cyanosis or clubbing. AV graft right upper extremity currently cannulated. Skin no rash Neuro no focal deficits Data : 07/13/21 05:15 07/13/21 05:15 Other data: Chest x-ray which I reviewed demonstrates pulmonary edema, atherosclerotic disease, pacemaker left chest Last echocardiogram May 2020 demonstrated EF of 55%, moderate mitral regurgitation EKG demonstrates a ventricular paced rhythm INR 1.26 ABG demonstrates a pH of 7.4, PCO2 41, PO2 73 on 40% FiO2 by BiPAP Troponin baseline 82 with repeat of 73 LFTs normal Rapid Covid negative A&P Assessment and plan (1) CHF (congestive heart failure): Presentation consistent with pulmonary edema. BNP elevated, chest x-ray demonstrates pulmonary edema Most consistent with acute diastolic heart failure Hemodialysis being performed today should alleviate dyspnea and provide means to discontinue BiPAP. Repeat echocardiogram. Limited is okay. Last echo May 2020 demonstrated EF 55%, moderate mitral regurgitation Status: Acute (2) Respiratory failure with hypoxia: Currently on BiPAP. Initial saturation in the 70s. Wean BiPAP as tolerated after removal of fluid by dialysis. No current evidence for pneumonia. Status: Acute (3) ESRD (end stage renal disease): On hemodialysis Nephrology consultation appreciated Hemodialysis being performed today. Status: Acute (4) Restrictive lung disease: Followed by pulmonary Also has significant reduction of function of small airways Continue chronic medications, DuoNeb as needed. Note that he is on baseline 2 L of oxygen Status: Acute (5) CAD (coronary artery disease): Troponin with not significant delta Continue chronic medications including statin and aspirin Await echocardiogram Status: Acute Qualifiers: Coronary Disease-Associated Artery/Lesion type: [place] artery [place] vs. transplanted heart: [place] heart Associated angina: without angina Qualified Code(s): I25.10 - Atherosclerotic heart disease of [place] coronary artery without angina pectoris (6) Anemia: Mild. No evidence of acute blood loss. Secondary to renal disease. Status: Acute Additional A&P Information Diabetes mellitus. Continue long-acting insulin. Add sliding scale. Presumed history of atrial fibrillation that will need to be clarified. On Eliquis GERD, continue acid suppression Chronic neuropathy, continue Neurontin Full code Eliquis will suffice for DVT prophylaxis Attestations Medical Necessity Statement*: Will need greater than 2 midnight stay secondary to acute CHF, with acute hypoxic respiratory failure requiring BiPAP and emergent hemodialysis. 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 transplanted heart: [place] heart Associated angina: without angina Anemia D64.9
--- NOTE | 2021-07-13 10:32 | USCV_ITS ---
Shon Mullen Age: 76 Gender: M : 1945 Exam Date: 07/13/2021 15:27 Ordering Phys: Ron Piña MD Technologist: Alexandra Paz Exam Location: [facility] [place] Indication: CHF BP: 154 / 82 HR: 62 Rhythm: Atrial fibrillation Technical Quality: Suboptimal MEASUREMENTS (Male / Female) Normal Values 2D ECHO LV Diastolic Diameter PLAX 6.4 cm 4.2 - 5.9 / 3.9 - 5.3 cm LV Systolic Diameter PLAX 4.6 cm IVS Diastolic Thickness 1.7 cm 0.6 - 1.0 / 0.6 - 0.9 cm IVS Systolic Thickness 2.7 cm LVPW Diastolic Thickness 1.8 cm 0.6 - 1.0 / 0.6 - 0.9 cm LVPW Systolic Thickness 2.4 cm LVOT Diameter 2.0 cm LV Ejection Fraction MOD 2C 38.0 % LV Ejection Fraction 2C AL 33.6 % LA Diameter 4.8 cm LA Width 3.2 cm LA Height 6.5 cm RA Width 4.8 cm RA Height 5.0 cm Aorta at Sinotubular Diameter 2.5 cm DOPPLER AV Peak Velocity 167.0 cm/s LVOT Peak Velocity 96.0 cm/s AV Area Cont Eq vti 1.8 cm squared AV Area Cont Eq pk 1.8 cm squared MV Peak Velocity 136.0 cm/s MV Area PHT 3.5 cm squared MV E' Velocity 48.5 cm/s Mitral E to MV E' Ratio 16.5 Mitral E to LV E' Lateral Ratio 18.4 Mitral E to LV E' Septal Ratio 14.9 TR Peak Velocity 284.7 cm/s TR Peak Gradient 32.4 mmHg TR Mean Velocity 237.6 cm/s TR Mean Gradient 23.2 mmHg TR Velocity Time Integral 98.4 cm TV Peak E Velocity 54.0 cm/s PV Peak Velocity 106.0 cm/s RV Acceleration Time 0.1 s RV Ejection Time 0.3 s RV AcT/ET 0.3 FINDINGS Left Ventricle Severely increased left ventricular cavity size. Severely decreased left ventricular systolic function. Left ventricular ejection fraction is estimated at 38 %. There is global hypokinesis. In the presence of atrial fibrillation diastolic function cannot be assessed accurately. Right Ventricle The right ventricle is normal in size and function. RVSP could not be calculated due to incomplete tricuspid regurgitation velocity profile. Right Atrium The right atrium is normal in size. Left Atrium The left atrium is normal in size. Mitral Valve Moderately thickened mitral valve. No mitral valve stenosis. Moderate mitral valve regurgitation. Aortic Valve Severe aortic valve calcification. Moderate aortic valve stenosis, mean gradient 5.4 mmHg, KYLIE 1.8 cm squared. Trace to mild aortic valve regurgitation. Tricuspid Valve Structurally normal tricuspid valve without significant stenosis or regurgitation. Pulmonic Valve Structurally normal pulmonic valve without significant stenosis. There is no pulmonic regurgitation. Pericardium Normal pericardium without effusion. Aorta Normal ascending aorta dimension. CONCLUSIONS 1-Severely increased left ventricular cavity size. Severely decreased left ventricular systolic function. Left ventricular ejection fraction is estimated at 38 %. There is global hypokinesis. In the presence of atrial fibrillation diastolic function cannot be assessed accurately. 2-Severe aortic valve calcification. Moderate aortic valve stenosis, mean gradient 5.4 mmHg, KYLIE 1.8 cm squared. Trace to mild aortic valve regurgitation. 3-Moderately thickened mitral valve. No mitral valve stenosis. Moderate mitral valve regurgitation. 4-There is no pericardial effusion. 5-The right ventricle is normal in size and function. RVSP could not be calculated due to incomplete tricuspid regurgitation velocity profile. 6-When compared to the prior echocardiogram dated 22 May 2020 left ventricle function has deteriorated from normal 55% to severely depressed 38% now. There is moderate aortic stenosis now. Mitral valve regurgitation remains at moderate. Saji Cohen MD (Electronically Signed) Final Date: 14 July 2021 21:42 S
--- NOTE | 2021-07-13 11:13 | ECG_ITS ---
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
[2021-07-13 12:20] LABS: Troponin 5 6HR 70.92 ng/L (0-15)
[2021-07-13 12:22] LABS: Troponin 5 6HR Delta -11.08 ng/L (0-12)
[2021-07-13 12:26] LABS: Hepatitis B Surface AB 15.3 (11.5-1000); Hepatitis B Surface Antigen Non-Reactive (Nonreactive); Hepatitis C Virus Antibody Non-Reactive (Nonreactive)
[2021-07-13] MEDS: perflutren protein-a microsphr 0.22 mg/mL SDV 3 mL IV (15:51)
[2021-07-13] MEDS: apixaban 5 mg Tablet PO (20:04)
[2021-07-13] MEDS: gabapentin 300 mg Capsule PO (20:04)
[2021-07-13] MEDS: docusate sodium 100 mg Capsule 200 MG PO (20:04)
[2021-07-13] MEDS: sevelamer 800 mg Tablet 2400 MG PO (20:05)
[2021-07-13] MEDS: famotidine 20 mg Tablet PO (20:05)
--- NOTE | 2021-07-13 21:22 | PC.HD ---
Dialysis performed in ED 10. Initially pt had bipap at 30% with no distress noted, O2 sat 95-97%. By the end of treatment pt was on O2 5L NC, O2 sat 95% but would drop to upper 80s at times and pt's breathing appeared more labored with pursed-lip breathing noted. Unable to obtain weight due to pt being on ED stretcher. Fluid removal goal not met due to pt having cramping, slowly subsided after UF terminated and 100ml NS returned to pt, Dr. Coley aware.
[2021-07-13 21:40] LABS: Glucose Point of Care 195 mg/dL (70-110)
[2021-07-13] MEDS: insulin lispro 100 unit/1 mL SUBCUT (21:45)
[2021-07-14] VITALS (14 sets, daily range): BP systolic 152–164; BP diastolic 72–91; PULSE 60–80; RESP 16–28; TEMP 36.4–36.9; O2SAT 91–96; BMI 40.8
[2021-07-14 06:18] LABS: Basophils # 0.1 10^3/uL (0.0-0.1); Basophils % 0.6 %; Eosinophils # 0.1 10^3/uL (0.0-0.8); Eosinophils % 0.8 %; Hematocrit 32.6 % (42.0-52.0); Hemoglobin 10.3 g/dL (11.7-16.6); Lymphocytes # 1.1 10^3/uL (0.8-4.8); Lymphocytes % 13.2 %; Mean Corpuscular HGB Conc 31.6 g/dL (30.0-36.0); Mean Corpuscular Hemoglobin 30.3 pg (28.0-34.0); Mean Corpuscular Volume 95.9 fl (80-94); Mean Platelet Volume 10.2 fL (7.4-10.4); Monocytes # 0.8 10^3/uL (0.2-0.9); Monocytes % 8.8 %; Neutrophils % 76.3 %; Nucleated Red Blood Cells % 0 %; Platelet Count 219 10^3/cmm (130-400); Red Cell Distribution Width 17.1 % (12.1-15.1); White Blood Count 8.7 10^3/uL (4.0-10.0)
[2021-07-14 06:30] LABS: Glucose Point of Care 159 mg/dL (70-110)
[2021-07-14 06:46] LABS: Calcium 9.8 mg/dL (8.5-10.5); Parathyroid Hormone 448.6 pg/mL (15-65)
[2021-07-14 06:49] LABS: Alanine Aminotransferase 14 U/L (0-41); Albumin Level 3.6 g/dL (3.5-5.2); Alkaline Phosphatase 77 IU/L (40-130); Anion Gap 17.2 (5-19); Aspartate Amino Transferase 15 U/L (0-40); Blood Urea Nitrogen 30 mg/dL (8-23); Calcium 9.6 mg/dL (8.5-10.5); Carbon Dioxide 26 mmol/L (22-29); Chloride 98 mmol/L (98-107); Globulin 4.1 g/dL (1.3-4.6); Glucose 145 mg/dL (65-115); Iron 35 ug/dL (59-158); Magnesium 2.1 mg/dL (1.7-2.3); Osmolality Calculated 293 mOsm/kg (285-295); Percent Saturation 15.6 % (20-50); Potassium 4.2 mmol/L (3.5-5.1); Sodium 137 mmol/L (136-145); Total Bilirubin 0.5 mg/dL (0.15-1.2); Total Iron Binding Capacity 223 mcg/dl; Total Protein 7.7 g/dL (6.6-8.7); Unsaturated Iron Binding 188 ug/dL (112-347)
[2021-07-14 06:58] LABS: 25 Hydroxy Vitamin D 47 ng/mL (30-100)
[2021-07-14 07:10] LABS: Ferritin 1143 ng/mL (30-400)
--- NOTE | 2021-07-14 07:55 | P.PN_ITS ---
Subjective Subjective: Interval history: less sob, still swollen. requiring BiPAP Medications: Reviewed: Yes Medication Review Details: Current Medications Acetaminophen (Acetaminophen 325 Mg Tablet) 650 mg PO Q6H PRN PRN Reason: Mild/Mod Pain Or Temp >/= 101 Albuterol/Ipratropium (Ipratropium-Albuterol 3 Ml Neb) 3 ml INHALATION Q6H PRN PRN Reason: SHORTNESS OF BREATH Apixaban (Apixaban 5 Mg Tablet) 5 mg PO BID@ [facility] Last Admin: 07/13/21 20:04 Dose: 5 mg Documented by: Aspirin (Aspirin 81 Mg Ec Tablet) 81 mg PO DAILY@09 [facility] Atorvastatin Calcium (Atorvastatin 40 Mg Tablet) 80 mg PO DAILY@1800 [facility] Dextrose (Dextrose 50% Syringe 50 Ml) 25 ml IVP ONCE PRN; Protocol PRN Reason: hypoglycemia protocol Dextrose (Dextrose 50% Syringe 50 Ml) 50 ml IVP PRN PRN; Protocol PRN Reason: hypoglycemia protocol Docusate Sodium (Docusate Sodium 100 Mg Capsule) 200 mg PO BID@ [facility] Last Admin: 07/13/21 20:04 Dose: 200 mg Documented by: Famotidine (Famotidine 20 Mg Tablet) 20 mg PO BID@ [facility] Last Admin: 07/13/21 20:05 Dose: 20 mg Documented by: Gabapentin (Gabapentin 300 Mg Capsule) 300 mg PO BID@ [facility] Last Admin: 07/13/21 20:04 Dose: 300 mg Documented by: Glucagon (Glucagon 1 Mg/Ml Inj 1 Ml) 1 mg IM ONCE PRN; Protocol PRN Reason: Adult Acute Hypoglycemia Prot. Albumin Human (Albumin) 12.5 gm in 50 mls @ 60 mls/hr IV PRN PRN PRN Reason: Hypotension and/or symptomatic Dextrose (D5w) 500 mls @ 100 mls/hr IV ONCE PRN; Protocol PRN Reason: Adult Acute Hypoglycemia Prot Insulin Glargine (Insulin Glargine 100 Units/1 Ml) 50 unit SUBCUT QAM [facility] Insulin Human Lispro (Insulin Lispro 100 Unit/1 Ml) 0 unit SUBCUT WM&BEDTIME [facility]; Protocol Last Admin: 07/13/21 21:59 Dose: Not Given Documented by: Nifedipine (Nifedipine Er (24 Hr) 30 Mg Tablet) 60 mg PO DAILY@09 [facility] Non-Formulary Medication (Tiotropium-Olodaterol [Stiolto Respimat]) 2 puff INHALATION QAM [facility] Ondansetron HCl (Ondansetron 2 Mg/Ml Sdv 2 Ml) 4 mg IVP Q6H PRN PRN Reason: vomiting, or N/V if npo Oxycodone/Acetaminophen (Oxycodone-Apap 5-325 Mg Tablet) 1 tab PO BID PRN PRN Reason: Pain Polyethylene Glycol (Polyethylene Glycol 3350 Pkt 17 Gm) 17 gm PO DAILY PRN PRN Reason: Constipation Sevelamer Carbonate (Sevelamer 800 Mg Tablet) 2,400 mg PO TID@,,18 [facility] Last Admin: 07/13/21 20:05 Dose: 2,400 mg Documented by: Spironolactone (Spironolactone 25 Mg Tablet) 25 mg PO DAILY@09 [facility] Vitals/I&O/Wt Last Vital Signs Temp 97.7 F 07/14/21 03:55 Pulse 60 07/14/21 03:55 Resp 17 07/14/21 03:55 BP 163/85 07/14/21 03:55 Pulse Ox 92 07/14/21 03:55 07/13/21 07/14/21 07/14/21 22:59 06:59 14:59 Output Total 375 / 2862 Balance -375 / -2762 Weight last 48 hrs Weight 129.274 kg Weight 0 g Weight 124.738 kg Physical Exam Narrative: EXAM NARRATIVE: obese man on BiPAP- comfortable vs noted heent- nc/at, eomi, anicteric neck obese, supple lungs dull bases, b/l crackles heart- irreg, +BOBBY abd soft, nt, + bs ext- RUE AVG w/ thrill and bruit legs w/ edema neuro- improved. a,a, o x 3 Data : 07/14/21 05:06 07/14/21 05:06 A&P Additional A&P Information 76 yr old man 1. ESRD- s/p HD yesterday and improving SOB -repeat SUF now- 2 hrs, remove 2l -full HD in am 2. await repeat echo- h/o Moderate MR- per Cardiology and Medicine -bnp 02322- monitor w/ HD 3.hgb okay for ESRD 15% sat, ferritin 1143- no iv iron 4. renal bone mineral metabolism- check vit d, pth = 448- sensipar -monitor ca, phos 5. restrictive lung disease- known to Dr. Adan 6. DM care seen and examine dw/ rN- telehealth visit time spent 25 min Attestations Medical Necessity Statement*: sob, bipap, esrd, MR Time Spent in Patient Care: 16 - 35 minutes (>than 50% of time spent in counselling and/or direct pt care on unit) . Coding Level of Care Code Acute Button Machine Operator for Aurelia Chaudhari
[2021-07-14] MEDS: insulin lispro 100 unit/1 mL SUBCUT ×4 (08:59→20:26)
[2021-07-14] MEDS: sevelamer 800 mg Tablet 2400 MG PO ×3 (09:00→17:45)
[2021-07-14] MEDS: famotidine 20 mg Tablet PO ×2 (09:00→17:45)
[2021-07-14] MEDS: gabapentin 300 mg Capsule PO ×2 (09:00→17:45)
[2021-07-14] MEDS: NIFEdipine ER (24 hr) 30 mg Tablet 60 MG PO (09:00)
[2021-07-14] MEDS: spironolactone 25 mg Tablet PO (09:00)
[2021-07-14] MEDS: aspirin 81 mg EC Tablet PO (09:00)
[2021-07-14] MEDS: docusate sodium 100 mg Capsule 200 MG PO ×2 (09:00→17:45)
[2021-07-14] MEDS: apixaban 5 mg Tablet PO ×2 (09:00→17:45)
--- NOTE | 2021-07-14 09:21 | PM.PN ---
Subjective Subjective: Interval history: Shon reports he feels somewhat better but is still swollen. No chest discomfort. Medications: Reviewed: Yes Vitals/I&O/Wt Last Vital Signs Temp 97.7 F 07/14/21 03:55 Pulse 60 07/14/21 08:31 Resp 16 07/14/21 08:31 BP 163/85 07/14/21 03:55 Pulse Ox 92 07/14/21 08:31 07/13/21 07/14/21 07/14/21 22:59 06:59 14:59 Output Total 375 / 2862 Balance -375 / -2762 Weight last 48 hrs Weight 129.274 kg Weight 0 g Weight 124.738 kg Physical Exam Narrative: EXAM NARRATIVE: General exam is a white male, no distress. I turned him down to 4 L and he was saturating 94%. Neck is supple no lymphadenopathy thyromegaly Cardiovascular regular rate and rhythm, heart sounds distant Lungs a few faint crackles at the bases Abdomen obese nontender with positive bowel sounds. exam deferred Extremities 1+ bilateral edema. No cyanosis or clubbing. AV graft right upper extremity Data : 07/14/21 05:06 07/14/21 05:06 A&P Assessment and plan (1) CHF (congestive heart failure): Presentation consistent with pulmonary edema. BNP elevated, chest x-ray demonstrates pulmonary edema Most consistent with acute diastolic heart failure Hemodialysis was performed yesterday with improvement in patient's symptoms and is going to be performed again today for further fluid removal. Hopefully his oxygen requirement will wean down significantly. Repeat echocardiogram pending I would suspect he will likely be ready for discharge tomorrow after hemodialysis unless he makes very rapid improvement today, weaning down to baseline oxygen requirement Status: Acute (2) Respiratory failure with hypoxia: Currently on BiPAP. Initial saturation in the 70s. Wean BiPAP as tolerated after removal of fluid by dialysis. No current evidence for pneumonia. Status: Acute (3) ESRD (end stage renal disease): Received hemodialysis yesterday, and plan is to receive again today Nephrology consultation appreciated Hemodialysis being performed today. Status: Acute (4) Restrictive lung disease: Followed by pulmonary Also has significant reduction of function of small airways Continue chronic medications, DuoNeb as needed. Note that he is on baseline 2 L of oxygen Status: Acute (5) CAD (coronary artery disease): Troponin with not significant delta Continue chronic medications including statin and aspirin Await echocardiogram Status: Acute Qualifiers: Coronary Disease-Associated Artery/Lesion type: [place] artery [place] vs. transplanted heart: [place] heart Associated angina: without angina Qualified Code(s): I25.10 - Atherosclerotic heart disease of [place] coronary artery without angina pectoris (6) Anemia: Mild. No evidence of acute blood loss. Secondary to renal disease. Status: Acute Additional A&P Information Diabetes mellitus. Continue long-acting insulin. Sliding scale. Presumed history of atrial fibrillation that will need to be clarified. On Eliquis GERD, continue acid suppression Chronic neuropathy, continue Neurontin Full code Eliquis will suffice for DVT prophylaxis Attestations Medical Necessity Statement*: Needs continued hospital stay secondary to acute diastolic heart failure in need of dialysis for fluid removal. Coding Level of Care Code Acute Butadiene Converter Utility Operator for Chg Fwd Diagnoses CHF (congestive heart failure) I50.9 Respiratory failure with hypoxia J96.91 ESRD (end stage renal disease) N18.6 Restrictive lung disease J98.4 CAD (coronary artery disease) I25.10 Coronary Disease-Associated Artery/Lesion type: [place] artery [place] vs. transplanted heart: [place] heart Associated angina: without angina Anemia D64.9
--- NOTE | 2021-07-14 10:42 | PC.NUTR ---
Nutrition note: Diet order changed per MD verbal order in rounds today. No triggers for full nutrition assessment at this time.
[2021-07-14 12:49] LABS: Glucose Point of Care 192 mg/dL (70-110)
--- NOTE | 2021-07-14 13:54 | ECG_ITS ---
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 Measurements Intervals [place] Rate: 63 P: ME: QRS: -78 QRSD: 200 T: 107 QT: 532 QTc: 545 Interpretive Statements ELECTRONIC VENTRICULAR PACEMAKER ABNORMAL RHYTHM ECG Compared to ECG 07/13/2021 07:29:57 Prolonged QT interval no longer present Electronically Signed On 07-14-2021 22:13:03 CDT by Anne Mendoza M.D. [id number]
--- NOTE | 2021-07-14 14:03 | XRR_ITS ---
PROCEDURE INFORMATION: Exam: XR Chest Exam date and time: 07/14/2021 2:03 PM Age: 76 years old Clinical indication: Dyspnea. Pacemaker. Low oxygen levels. TECHNIQUE: Imaging protocol: XR of the chest. Views: 1 view. COMPARISON: CR (CHEST, ) 07/13/2021 5:52 AM FINDINGS: Tubes, catheters and devices: A left subclavian pacer is noted. Lungs: There is pulmonary vascular congestion. Interstitial prominence may reflect edema. There is mild peribronchial wall thickening. No pulmonary consolidation. Pleural spaces: No pleural effusion.. No pneumothorax. Heart/Mediastinum: The heart is enlarged. No gross evidence of pneumomediastinum. Bones/joints: No gross fracture. XR/XR chest 1V portable [id number] IMPRESSION: 1. Cardiomegaly with pulmonary vascular congestion. There is possible pulmonary edema. 2. There is mild peribronchial wall thickening; query viral infection/bronchitis, chronic bronchitis and/or asthma. Radiation Dose CTDIVOL = (mGy): DLP = (mGy-cm)
[2021-07-14 14:25] LABS: Procalcitonin 0.13 ng/mL (0-0.5)
[2021-07-14 14:39] LABS: Troponin T (5th) Once 77 ng/L (0-15)
[2021-07-14 17:38] LABS: Glucose Point of Care 200 mg/dL (70-110)
[2021-07-14] MEDS: doxycycline 100 mg Tablet PO (17:44)
[2021-07-14] MEDS: atorvastatin 40 mg Tablet 80 MG PO (17:45)
[2021-07-14 20:15] LABS: Glucose Point of Care 169 mg/dL (70-110)
[2021-07-14] MEDS: ipratropium-albuterol 3 mL Neb INHALATION (20:48)
[2021-07-15] VITALS (19 sets, daily range): BP systolic 124–150; BP diastolic 66–83; PULSE 59–80; RESP 14–26; TEMP 36.5–37; O2SAT 90–98
[2021-07-15] MEDS: ipratropium-albuterol 3 mL Neb INHALATION ×5 (00:09→19:53)
[2021-07-15 06:06] LABS: Basophils # 0.1 10^3/uL (0.0-0.1); Basophils % 0.7 %; Eosinophils # 0.1 10^3/uL (0.0-0.8); Eosinophils % 1.8 %; Hematocrit 30.3 % (42.0-52.0); Hemoglobin 9.5 g/dL (11.7-16.6); Lymphocytes # 1.4 10^3/uL (0.8-4.8); Lymphocytes % 20.4 %; Mean Corpuscular HGB Conc 31.4 g/dL (30.0-36.0); Mean Corpuscular Hemoglobin 29.9 pg (28.0-34.0); Mean Corpuscular Volume 95.3 fl (80-94); Monocytes # 0.9 10^3/uL (0.2-0.9); Monocytes % 12.7 %; Neutrophils % 64.3 %; Nucleated Red Blood Cells % 0 %; Platelet Count 196 10^3/cmm (130-400); Red Blood Count 3.18 10^6/uL (4.1-5.3); Red Cell Distribution Width 16.9 % (12.1-15.1); White Blood Count 6.7 10^3/uL (4.0-10.0)
[2021-07-15 06:25] LABS: Alanine Aminotransferase 12 U/L (0-41); Albumin Level 3.5 g/dL (3.5-5.2); Alkaline Phosphatase 70 IU/L (40-130); Anion Gap 15.9 (5-19); Aspartate Amino Transferase 12 U/L (0-40); Blood Urea Nitrogen 43 mg/dL (8-23); Calcium 9.3 mg/dL (8.5-10.5); Carbon Dioxide 27 mmol/L (22-29); Chloride 101 mmol/L (98-107); Globulin 3.7 g/dL (1.3-4.6); Glucose 126 mg/dL (65-115); Magnesium 2.2 mg/dL (1.7-2.3); Osmolality Calculated 302 mOsm/kg (285-295); Phosphorus 4.7 mg/dL (2.5-4.5); Potassium 3.9 mmol/L (3.5-5.1); Sodium 140 mmol/L (136-145); Total Bilirubin 0.4 mg/dL (0.15-1.2); Total Protein 7.2 g/dL (6.6-8.7)
[2021-07-15 06:32] LABS: Glucose Point of Care 132 mg/dL (70-110)
--- NOTE | 2021-07-15 07:35 | P.PN_ITS ---
Subjective Subjective: Interval history: feels better. less sob, still on bipap. no n/v/f/c/lackey/d Medications: Reviewed: Yes Medication Review Details: Current Medications Acetaminophen (Acetaminophen 325 Mg Tablet) 650 mg PO Q6H PRN PRN Reason: Mild/Mod Pain Or Temp >/= 101 Albuterol/Ipratropium (Ipratropium-Albuterol 3 Ml Neb) 3 ml INHALATION Q4H.RESPIRATORY [facility] Last Admin: 07/15/21 04:06 Dose: 3 ml Documented by: Aspirin (Aspirin 81 Mg Ec Tablet) 81 mg PO DAILY@09 [facility] Last Admin: 07/14/21 09:00 Dose: 81 mg Documented by: Atorvastatin Calcium (Atorvastatin 40 Mg Tablet) 80 mg PO DAILY@1800 [facility] Last Admin: 07/14/21 17:45 Dose: 80 mg Documented by: Dextrose (Dextrose 50% Syringe 50 Ml) 25 ml IVP ONCE PRN; Protocol PRN Reason: hypoglycemia protocol Dextrose (Dextrose 50% Syringe 50 Ml) 50 ml IVP PRN PRN; Protocol PRN Reason: hypoglycemia protocol Docusate Sodium (Docusate Sodium 100 Mg Capsule) 200 mg PO BID@ [facility] Last Admin: 07/14/21 17:45 Dose: 200 mg Documented by: Doxycycline Monohydrate (Doxycycline 100 Mg Tablet) 100 mg PO BID [facility]; Protocol Last Admin: 07/14/21 17:44 Dose: 100 mg Documented by: Famotidine (Famotidine 20 Mg Tablet) 20 mg PO BID@ [facility] Last Admin: 07/14/21 17:45 Dose: 20 mg Documented by: Gabapentin (Gabapentin 300 Mg Capsule) 300 mg PO BID@ [facility] Last Admin: 07/14/21 17:45 Dose: 300 mg Documented by: Glucagon (Glucagon 1 Mg/Ml Inj 1 Ml) 1 mg IM ONCE PRN; Protocol PRN Reason: Adult Acute Hypoglycemia Prot. Heparin Sodium (Porcine) (Heparin 5,000 Unit/Ml Inj 1 Ml) 5,000 unit SUBCUT Q12H [facility] Albumin Human (Albumin) 12.5 gm in 50 mls @ 60 mls/hr IV PRN PRN PRN Reason: Hypotension and/or symptomatic Dextrose (D5w) 500 mls @ 100 mls/hr IV ONCE PRN; Protocol PRN Reason: Adult Acute Hypoglycemia Prot Insulin Glargine (Insulin Glargine 100 Units/1 Ml) 50 unit SUBCUT QAM [facility] Last Admin: 07/14/21 08:14 Dose: Not Given Documented by: Insulin Human Lispro (Insulin Lispro 100 Unit/1 Ml) 0 unit SUBCUT WM&BEDTIME [facility]; Protocol Last Admin: 07/15/21 07:28 Dose: Not Given Documented by: Nifedipine (Nifedipine Er (24 Hr) 30 Mg Tablet) 60 mg PO DAILY@ [facility] Last Admin: 07/14/21 09:00 Dose: 60 mg Documented by: Non-Formulary Medication (Tiotropium-Olodaterol [Stiolto Respimat]) 2 puff INHALATION QAM [facility] Last Admin: 07/15/21 05:04 Dose: Not Given Documented by: Ondansetron HCl (Ondansetron 2 Mg/Ml Sdv 2 Ml) 4 mg IVP Q6H PRN PRN Reason: vomiting, or N/V if npo Oxycodone/Acetaminophen (Oxycodone-Apap 5-325 Mg Tablet) 1 tab PO BID PRN PRN Reason: Pain Polyethylene Glycol (Polyethylene Glycol 3350 Pkt 17 Gm) 17 gm PO DAILY PRN PRN Reason: Constipation Sevelamer Carbonate (Sevelamer 800 Mg Tablet) 2,400 mg PO TID@, [facility] Last Admin: 07/14/21 17:45 Dose: 2,400 mg Documented by: Spironolactone (Spironolactone 25 Mg Tablet) 25 mg PO DAILY@ [facility] Last Admin: 07/14/21 09:00 Dose: 25 mg Documented by: Vitals/I&O/Wt Last Vital Signs Temp 98.1 F 07/15/21 03:47 Pulse 60 07/15/21 04:15 Resp 16 07/15/21 04:15 BP 150/83 07/15/21 03:47 Pulse Ox 95 07/15/21 04:15 07/14/21 07/15/21 07/15/21 22:59 06:59 14:59 Intake Total 0 / 0 180 / 180 Output Total 2119 / 2119 900 / 3020 Balance -2120 / -2120 -720 / -2840 Weight last 48 hrs Weight 126.5 kg Weight 129.274 kg Weight 0 g Physical Exam Narrative: EXAM NARRATIVE: obese man on BiPAP- comfortable vs noted heent- nc/at, eomi, anicteric neck obese, supple lungs dull bases, b/l crackles heart- irreg, +BOBBY abd soft, nt, + bs ext- RUE AVG w/ thrill and bruit legs w/ edema neuro- improved. a,a, o x 3 Data : 07/15/21 05:51 07/15/21 05:51 A&P Additional A&P Information 76 yr old man 1. ESRD- s/p HD 07/14, SUF 07/14 -repeat HD now- 3.5 hrs, 3k, remove 3l 2. await repeat echo- h/o Moderate MR- per Cardiology and Medicine -bnp [id number]- monitor w/ HD 3.anemia ofr ESRD -tramaine 15% sat, ferritin 1143- no iv iron 4. renal bone mineral metabolism- - vit d 47 - pth = 448- sensipar -monitor ca, phos -okay 5. restrictive lung disease- known to Dr. Adan 6. DM care seen and examined w/ rN- telehealth visit time spent 25 min Attestations Medical Necessity Statement*: esrd, lung disease, htn, sob Time Spent in Patient Care: 16 - 35 minutes (>than 50% of time spent in counselling and/or direct pt care on unit) . Coding Level of Care Code Acute [employer] Supervisor for Aurelia Chaudhari
[2021-07-15] MEDS: sevelamer 800 mg Tablet 2400 MG PO ×3 (08:26→18:21)
[2021-07-15] MEDS: insulin glargine 100 units/1 mL 50 UNIT SUBCUT (08:26)
[2021-07-15] MEDS: gabapentin 300 mg Capsule PO ×2 (08:27→18:22)
[2021-07-15] MEDS: heparin 5,000 unit/mL INJ 1 mL 5000 UNIT SUBCUT ×2 (08:27→18:22)
[2021-07-15] MEDS: docusate sodium 100 mg Capsule 200 MG PO ×2 (08:27→18:22)
[2021-07-15] MEDS: aspirin 81 mg EC Tablet PO (08:27)
[2021-07-15] MEDS: famotidine 20 mg Tablet PO ×2 (08:27→18:22)
[2021-07-15] MEDS: doxycycline 100 mg Tablet PO ×2 (08:27→18:21)
[2021-07-15] MEDS: NIFEdipine ER (24 hr) 30 mg Tablet 60 MG PO (08:27)
[2021-07-15] MEDS: spironolactone 25 mg Tablet PO (08:27)
--- NOTE | 2021-07-15 10:44 | P.PN_ITS ---
Subjective Subjective: Interval history: Shon reports that his breathing is a little bit better. Denies any chest discomfort currently. I discussed with him his echocardiogram report, and that cardiology would be visiting with him. Medications: Reviewed: Yes Vitals/I&O/Wt Last Vital Signs Temp 97.8 F 07/15/21 08:00 Pulse 62 07/15/21 08:03 Resp 18 07/15/21 08:03 BP 131/73 07/15/21 08:00 Pulse Ox 96 07/15/21 08:03 07/14/21 07/15/21 07/15/21 22:59 06:59 14:59 Intake Total 0 / 0 180 / 180 640 / 640 Output Total 2120 / 2120 900 / 3020 300 / 300 Balance -2120 / -2120 -720 / -2840 340 / 340 Weight last 48 hrs Weight 126.5 kg Weight 129.274 kg Weight 0 g Physical Exam Narrative: EXAM NARRATIVE: General exam is a white male, no distress. Mild respiratory distress on 4 L oxygen. Neck is supple no lymphadenopathy thyromegaly Cardiovascular regular rate and rhythm, heart sounds distant Lungs clear but with diminished breath sounds at the bases Abdomen obese nontender with positive bowel sounds. exam deferred Extremities 1+ bilateral edema. No cyanosis or clubbing. AV graft right upper extremity Data : 07/15/21 05:51 07/15/21 05:51 A&P Assessment and plan (1) CHF (congestive heart failure): Presentation consistent with pulmonary edema. BNP elevated, chest x-ray demonstrates pulmonary edema Most consistent with acute diastolic heart failure, but echo demonstrates there is an acute systolic failure component as well. Hemodialysis has improved his overall fluid status but he continues to have shortness of breath. Echocardiogram demonstrated reduction in ejection fraction from previous, now at approximately 40% with moderate aortic stenosis, moderate mitral regurgitation Cardiology evaluation has been arranged, and they will see him today. Status: Acute (2) Respiratory failure with hypoxia: Improved No current evidence for pneumonia. Covid PCR pending Secondary to concern of bronchitis doxycycline ordered. Procalcitonin negative. Repeat chest x-ray peribronchial thickening, no obvious pneumonic process. Status: Acute (3) ESRD (end stage renal disease): Nephrology consultation appreciated Undergoing his third hemodialysis run today Status: Acute (4) Restrictive lung disease: Followed by pulmonary Also has significant reduction of function of small airways Continue chronic medications, DuoNeb scheduled Note that he is on baseline 2 L of oxygen Status: Acute (5) CAD (coronary artery disease): Troponin with not significant delta Continue chronic medications including statin and aspirin Echocardiogram demonstrates reduced ejection fraction. Cardiology consulted. Status: Acute Qualifiers: Coronary Disease-Associated Artery/Lesion type: [place] artery [place] vs. transplanted heart: [place] heart Associated angina: without angina Qualified Code(s): I25.10 - Atherosclerotic heart disease of [place] coronary artery without angina pectoris (6) Anemia: Mild. No evidence of acute blood loss. Secondary to renal disease. Status: Acute Additional A&P Information Diabetes mellitus. Continue long-acting insulin. Sliding scale. Presumed history of atrial fibrillation that will need to be clarified. On Eliquis chronically but holding currently as cardiology evaluation may be needed. GERD, continue acid suppression Chronic neuropathy, continue Neurontin Full code Eliquis held in case cardiology procedures done. Placed on heparin subcutaneous currently. Plan is to restart Eliquis when appropriate. Attestations Medical Necessity Statement*: Needs continued hospital stay secondary to acute diastolic and systolic congestive heart failure exacerbation. Coding Level of Care Code Acute Flat Bed Knitter for Aurelia Chaudhari Diagnoses CHF (congestive heart failure) I50.9 Respiratory failure with hypoxia J96.91 ESRD (end stage renal disease) N18.6 Restrictive lung disease J98.4 CAD (coronary artery disease) I25.10 Coronary Disease-Associated Artery/Lesion type: [place] artery [place] vs. transplanted heart: [place] heart Associated angina: without angina Anemia D64.9
[2021-07-15 12:20] LABS: Glucose Point of Care 183 mg/dL (70-110)
[2021-07-15] MEDS: insulin lispro 100 unit/1 mL SUBCUT ×3 (12:41→20:56)
[2021-07-15] MEDS: epoetin alfa 10,000 unit/mL INJ 10000 UNIT SUBCUT (12:42)
--- NOTE | 2021-07-15 12:46 | P.CONIM_ITS ---
Providers/Reason For Consult Consulting Physician/Specialty*: Jairo Johnson MD/Cardiology Reason for Consult*: LV dysfunction Requesting Physician: Dr Piña Attending Physician: Ron Piña MD Primary Care Provider: Adria Artis DO History of Present Illness History of Present Illness Shon Mullen is a 76 year old male with PMH of ESRD on HD, CAD, restrictive lung disease has presented with worsening shortness of breath. He has not been feeling well for the last 3 months. Denies chest pain. On 4 L O2 now. Patient had normal LV systolic function in the past but echo done during current admission shows mild to moderately reduced LV EF of 38%. Troponin was mildly elevated but decreased on repeat testing. Review of Systems General: Reports: 10 or more systems reviewed and unremarkable except in HPI and below Const: Denies: fever(s) or chills Eyes: Denies: change in vision ENMT: Denies: throat pain Card: Denies: chest pain Resp: Reports: dyspnea; Denies: productive cough, non-productive cough or wheezing GI: Denies: abdominal pain, nausea or vomiting : Denies: flank pain Musc: Denies: neck pain Skin/Breast: Denies: rash Neuro: Denies: headache(s) Psych: Denies: anxiety or depression Endo: Denies: polyuria Nas/Lymph: Denies: easy bruising All/Imm: Denies: urticaria Meds/Allergies Home Medications and Allergies Home Medications Medication Instructions Recorded Confirmed Last Taken Type aspirin 81 mg tablet,delayed 81 mg PO DAILY@10/02/19 07/13/21 07/12/21 History release atorvastatin 80 mg tablet 80 mg PO DAILY@1800 10/02/19 07/13/21 07/12/21 History cetirizine 10 mg capsule 10 mg PO DAILY@10/02/19 07/13/21 07/12/21 History nifedipine 60 mg tablet,extended 60 mg PO DAILY@10/02/19 07/13/21 07/12/21 History release nitroglycerin 0.4 mg sublingual 0.4 mg SUBLINGUAL Q5M PRN 10/02/19 07/13/21 09/18/20 History tablet epoetin beta, methoxy peg 30 60 mcg SUBCUT Q14D ml 11/07/19 07/13/21 07/03/21 History mcg/0.3 mL injection syringe gabapentin 300 mg capsule 300 mg PO BID@, cap 11/07/19 07/13/21 07/12/21 History sevelamer carbonate 800 mg tablet 2,400 mg PO TID@,, tab 11/07/19 07/13/21 07/12/21 History famotidine 20 mg tablet 20 mg PO BID@,04/16/20 07/13/21 07/12/21 History liraglutide (weight loss) 3 mg/0.5 3 mg SUBCUT DAILY PRN 04/16/20 07/13/21 01/31/21 History mL (18 mg/3 mL) subcut pen injector omega-3 fatty acids 1,000 mg 1,000 mg PO BID@ cap 04/16/20 07/13/21 07/12/21 History capsule spironolactone 25 mg tablet 25 mg PO DAILY@07/24/20 07/13/21 07/12/21 History docusate sodium 200 mg PO BID@,09/17/20 07/13/21 07/12/21 History Eliquis 5 mg PO BID@,11/11/20 07/13/21 07/12/21 History allopurinol 100 mg PO DAILY PRN 11/11/20 07/13/21 01/31/21 History oxycodone-acetaminophen 1 tab PO BID PRN 11/11/20 07/13/21 03/01/21 History polyethylene glycol 3350 [Miralax] 17 g PO DAILY PRN 11/11/20 07/13/21 03/01/21 History albuterol sulfate 90 mcg/actuation 2 puff INHALATION Q6H PRN 30 Days 01/02/21 07/13/21 02/23/21 Rx aerosol inhaler #8.5 g B complex-vitamin C-folic acid 1 tab PO DAILY@07/13/21 07/13/21 07/12/21 History [Renal Multivitamin Formula] albuterol sulfate 2.5 mg INHALATION Q6H PRN 07/13/21 07/13/21 Unknown History cholecalciferol (vitamin D3) 50,000 unit PO Q7D 07/13/21 07/13/21 07/12/21 History cinacalcet 30 mg PO .THREE TIMES A WEEK 11/01/21 11/01/21 Unknown History gentamicin 1 applic TOPICAL TID PRN 07/13/21 07/13/21 Unknown History insulin glargine [Lantus U-100 50 unit SUBCUT QAM 07/13/21 07/13/21 07/12/21 History Insulin] lidocaine-prilocaine 1 applic TOPICAL TID PRN 07/13/21 07/13/21 Unknown History tiotropium-olodaterol [Stiolto 2 puff INHALATION QAM 07/13/21 07/13/21 07/12/21 History Respimat] Allergies Allergy/AdvReac Type Severity Reaction Status Date / Time ciprofloxacin [From Cipro] Allergy rash Verified 07/13/21 08:42 felodipine Allergy rash Verified 07/13/21 08:42 sulfamethoxazole Allergy rash Verified 07/13/21 08:42 [From Septra] trimethoprim [From Septra] Allergy rash Verified 07/13/21 08:42 Current Medications Current Medications Generic Name Dose Route Start Last Admin Trade Name Freq PRN Reason Stop Dose Admin Albuterol/Ipratropium 3 ml 07/14/21 13:45 07/15/21 11:18 Ipratropium-Albuterol 3 Ml Neb INHALATION 3 ml Q4H.RESPIRATORY [facility] Administration Aspirin 81 mg 07/14/21 09:00 07/15/21 08:27 Aspirin 81 Mg Ec Tablet PO 81 mg DAILY@09 [facility] Administration Atorvastatin Calcium 80 mg 07/14/21 18:00 07/14/21 17:45 Atorvastatin 40 Mg Tablet PO 80 mg DAILY@1800 [facility] Administration Docusate Sodium 200 mg 07/13/21 19:41 07/15/21 08:27 Docusate Sodium 100 Mg Capsule PO 200 mg BID@ [facility] Administration Doxycycline Monohydrate 100 mg 07/14/21 18:00 07/15/21 08:27 Doxycycline 100 Mg Tablet PO 100 mg BID [facility] Administration Protocol Famotidine 20 mg 07/13/21 19:41 07/15/21 08:27 Famotidine 20 Mg Tablet PO 20 mg BID@ [facility] Administration Gabapentin 300 mg 07/13/21 19:41 07/15/21 08:27 Gabapentin 300 Mg Capsule PO 300 mg BID@ [facility] Administration Heparin Sodium (Porcine) 5,000 unit 07/15/21 07:00 07/15/21 08:27 Heparin 5,000 Unit/Ml Inj 1 Ml SUBCUT 5,000 unit Q12H [facility] Administration Insulin Glargine 50 unit 07/14/21 06:00 07/15/21 08:26 Insulin Glargine 100 Units/1 Ml SUBCUT 50 unit QAM [facility] Administration Insulin Human Lispro 0 unit 07/13/21 19:41 07/15/21 07:28 Insulin Lispro 100 Unit/1 Ml SUBCUT Not Given WM&BEDTIME [facility] Protocol Nifedipine 60 mg 07/14/21 09:00 07/15/21 08:27 Nifedipine Er (24 Hr) 30 Mg Tablet PO 60 mg DAILY@09 [facility] Administration Non-Formulary Medication 2 puff 07/14/21 06:00 07/15/21 05:04 Tiotropium-Olodaterol [Stiolto Respimat] INHALATION Not Given QAM [facility] Sevelamer Carbonate 2,400 mg 07/13/21 19:41 07/15/21 08:26 Sevelamer 800 Mg Tablet PO 2,400 mg TID@ [facility] Administration Spironolactone 25 mg 07/14/21 09:00 07/15/21 08:27 Spironolactone 25 Mg Tablet PO 25 mg DAILY@09 [facility] Administration PFSH Acute PFSH: Medical History Accelerated essential hypertension Atrial fibrillation CAD (coronary artery disease) Diabetes mellitus ESRD (end stage renal disease) Hypercholesteremia Myocardial infarct Neuropathy MARAL (obstructive sleep apnea) Pacemaker Pneumonia Surgical History Hemodialysis access, AV graft History of colonoscopy with polypectomy 2020 Peritoneal dialysis status (03/02/21) removed S/P cardiac pacemaker procedure S/P cataract surgery S/P PTCA (percutaneous transluminal coronary angioplasty) Family History Mother Heart disease Social History Smoking and tobacco status: former smoker Quit status (tobacco): has quit using tobacco Year quit tobacco: 1984 Former quit date comment: 3PPD x 17 Years Second hand smoke exposure: No Smoking risk assessment/counseling performed?: No Alcohol intake: never Counseling given: No Counseling given: No Lives independently: Yes Household members: spouse Housing: House Marital status: service: Yes Current occupational status: retired Pets and animals: No History of recent travel: No Current gender identity: Male Vitals/I&O/Wt Last Vital Signs Temp 98.0 F 07/15/21 12:00 Pulse 61 07/15/21 12:00 Resp 20 H 07/15/21 12:00 BP 134/74 07/15/21 12:00 Pulse Ox 97 07/15/21 12:00 07/14/21 07/15/21 07/15/21 22:59 06:59 14:59 Intake Total 0 / 0 180 / 180 640 / 640 Output Total 2120 / 2120 900 / 3020 300 / 300 Balance -2120 / -2120 -720 / -2840 340 / 340 Weight last 48 hrs Weight 278 lb 14.156 oz Weight 285 lb Weight 0 oz Physical Exam Narrative: EXAM NARRATIVE: GENERAL: Patient is alert, awake and oriented x3. Sitting by the bedside NECK: No jugular vein distension. HEENT: No cyanosis. No icterus. No pallor. HEART: Regular S1 and S2. No murmur, rub or gallop. LUNGS: Decreased breath sounds bilaterally. ABDOMEN: Soft, nontender and nondistended. Positive bowel sounds. No guarding, rebound or tenderness. CENTRAL NERVOUS SYSTEM: Grossly nonfocal. EXTREMITIES: Lower extremities without edema bilaterally. A&P Assessment and plan (1) CHF (congestive heart failure): Status: Acute Qualifiers: Heart failure type: systolic Heart failure chronicity: acute on chronic Qualified Code(s): I50.23 - Acute on chronic systolic (congestive) heart failure (2) CAD (coronary artery disease): Status: Acute Qualifiers: Coronary Disease-Associated Artery/Lesion type: [place] artery [place] vs. transplanted heart: [place] heart Associated angina: without angina Qualified Code(s): I25.10 - Atherosclerotic heart disease of [place] coronary artery without angina pectoris (3) S/P dialysis catheter insertion: Status: Acute (4) S/P cardiac pacemaker procedure: Status: Acute (5) LV dysfunction: Status: Acute Patient has worsening shortness of breath, volume overload and newly discovered HFrEF with moderately reduced EF of 38%. Patient will need coronary angiogram with possible right heart cath to determine ischemic etiology of LV dysfunction He is not euvolemic at this time. May require further dialysis before angioram can be done Keep holding Eliquis for now. Will decide tomorrow the timing of cath based on his volume status. Continue aspirin NPO past midnight Thank you for involving us with care of this patient. We will continue to follow. Please call with questions Coding Level of Care Code Acute Vehicle Washer for Aurelia Chaudhari Diagnoses CHF (congestive heart failure) I50.23 Heart failure type: systolic Heart failure chronicity: acute on chronic CAD (coronary artery disease) I25.10 Coronary Disease-Associated Artery/Lesion type: [place] artery [place] vs. transplanted heart: [place] heart Associated angina: without angina S/P dialysis catheter insertion Z95.828; Z99.2 S/P cardiac pacemaker procedure Z95.0 LV dysfunction I51.9
[2021-07-15 14:20] LABS: Coronavirus Test Green County Not Detected
[2021-07-15] MEDS: atorvastatin 40 mg Tablet 80 MG PO (18:22)
[2021-07-15] MEDS: oxyCODONE-APAP 5-325 mg Tablet 1 TAB PO (23:58)
[2021-07-15] MEDS: acetaminophen 325 mg Tablet 650 MG PO (23:58)
[2021-07-16] VITALS (17 sets, daily range): BP systolic 93–130; BP diastolic 57–77; PULSE 62–73; RESP 16–23; TEMP 36.3–36.8; O2SAT 21–96
[2021-07-16] MEDS: ipratropium-albuterol 3 mL Neb INHALATION ×6 (00:44→20:44)
[2021-07-16] MEDS: insulin glargine 100 units/1 mL 50 UNIT SUBCUT (05:13)
[2021-07-16 06:12] LABS: Basophils % 0.6 %; Eosinophils # 0.2 10^3/uL (0.0-0.8); Eosinophils % 2.9 %; Hematocrit 29.1 % (42.0-52.0); Hemoglobin 9.4 g/dL (11.7-16.6); Lymphocytes # 1.4 10^3/uL (0.8-4.8); Lymphocytes % 22.4 %; Mean Corpuscular HGB Conc 32.3 g/dL (30.0-36.0); Mean Platelet Volume 10.4 fL (7.4-10.4); Monocytes # 0.9 10^3/uL (0.2-0.9); Monocytes % 13.7 %; Neutrophils # 3.72 10^3/uL (1.8-7.7); Neutrophils % 59.9 %; Nucleated Red Blood Cells % 0 %; Platelet Count 193 10^3/cmm (130-400); Red Blood Count 3.13 10^6/uL (4.1-5.3); Red Cell Distribution Width 16.7 % (12.1-15.1); White Blood Count 6.2 10^3/uL (4.0-10.0)
[2021-07-16] MEDS: heparin 5,000 unit/mL INJ 1 mL 5000 UNIT SUBCUT (06:26)
[2021-07-16 06:34] LABS: Alanine Aminotransferase 12 U/L (0-41); Albumin Level 3.3 g/dL (3.5-5.2); Alkaline Phosphatase 71 IU/L (40-130); Anion Gap 14.7 (5-19); Aspartate Amino Transferase 9 U/L (0-40); Blood Urea Nitrogen 34 mg/dL (8-23); Calcium 9.3 mg/dL (8.5-10.5); Carbon Dioxide 26 mmol/L (22-29); Chloride 99 mmol/L (98-107); Globulin 3.9 g/dL (1.3-4.6); Glucose 136 mg/dL (65-115); Magnesium 2.2 mg/dL (1.7-2.3); Osmolality Calculated 292 mOsm/kg (285-295); Phosphorus 4.6 mg/dL (2.5-4.5); Potassium 3.7 mmol/L (3.5-5.1); Sodium 136 mmol/L (136-145); Total Bilirubin 0.3 mg/dL (0.15-1.2); Total Protein 7.2 g/dL (6.6-8.7)
--- NOTE | 2021-07-16 09:19 | P.PN_ITS ---
Subjective Subjective: Interval history: Shon reports his breathing seems to be back to baseline, although he is on more oxygen than usual at 4 L. He feels like he does not have any edema. Medications: Reviewed: Yes Vitals/I&O/Wt Last Vital Signs Temp 97.7 F 07/16/21 07:49 Pulse 64 07/16/21 08:33 Resp 18 07/16/21 08:33 BP 121/77 07/16/21 07:49 Pulse Ox 96 07/16/21 08:33 07/15/21 07/16/21 07/16/21 22:59 06:59 14:59 Intake Total 500 / 1140 200 / 1340 Output Total 2566 / 2866 Balance -2066 / -1726 200 / -1526 Weight last 48 hrs Weight 126.2 kg Weight 126.5 kg Physical Exam Narrative: EXAM NARRATIVE: General exam is a white male, no distress. Appears comfortable on 4 L of oxygen. Neck is supple no lymphadenopathy thyromegaly Cardiovascular regular rate and rhythm, heart sounds distant Lungs clear but with diminished breath sounds at the bases Abdomen obese nontender with positive bowel sounds. Extremities no significant edema. No cyanosis or clubbing. AV graft right upper extremity Data : 07/16/21 05:11 07/16/21 05:11 A&P Assessment and plan (1) CHF (congestive heart failure): Presentation consistent with pulmonary edema. BNP elevated, chest x-ray demonstrates pulmonary edema Most consistent with acute diastolic heart failure, but echo demonstrates there is an acute systolic failure component as well. Hemodialysis has improved his overall fluid status significantly. Still requiring more oxygen than at baseline. Echocardiogram demonstrated reduction in ejection fraction from previous, now at approximately 40% with moderate aortic stenosis, moderate mitral regurgitation Cardiology evaluation is underway, with consideration for angiogram. Status: Acute (2) Respiratory failure with hypoxia: Improved No current evidence for pneumonia. Covid PCR negative Secondary to concern of bronchitis doxycycline ordered. Procalcitonin negative. Repeat chest x-ray peribronchial thickening, no obvious pneumonic process. Status: Acute (3) ESRD (end stage renal disease): Nephrology consultation appreciated He underwent 3 consecutive days of hemodialysis the last being on July 15. His typical schedule is Tuesday. Status: Acute (4) Restrictive lung disease: Followed by pulmonary Also has significant reduction of function of small airways Continue chronic medications, DuoNeb scheduled Note that he is on baseline 2 L of oxygen Status: Acute (5) CAD (coronary artery disease): Troponin with not significant delta Continue chronic medications including statin and aspirin Echocardiogram demonstrates reduced ejection fraction. Cardiology consulted. Status: Acute Qualifiers: Coronary Disease-Associated Artery/Lesion type: [place] artery [place] vs. transplanted heart: [place] heart Associated angina: without angina Qualified Code(s): I25.10 - Atherosclerotic heart disease of [place] coronary artery without angina pectoris (6) Anemia: Mild. No evidence of acute blood loss. Secondary to renal disease. Status: Acute Additional A&P Information Diabetes mellitus. Continue long-acting insulin. Sliding scale. Presumed history of atrial fibrillation that will need to be clarified. On Eliquis chronically but holding currently as cardiology evaluation may be needed. GERD, continue acid suppression Chronic neuropathy, continue Neurontin Full code Eliquis held in case cardiology procedures done. Placed on heparin subcutaneous currently. Plan is to restart Eliquis when appropriate. Attestations Medical Necessity Statement*: Needs continued hospitalization for further exploration of dyspnea with exertion in this patient who has had a significant decrease in ejection fraction. Cardiology to review if angiogram is appropriate. Coding Level of Care Code Acute Physiotherapy Practice Manager for [facility] Diagnoses CHF (congestive heart failure) I50.9 Respiratory failure with hypoxia J96.91 ESRD (end stage renal disease) N18.6 Restrictive lung disease J98.4 CAD (coronary artery disease) I25.10 Coronary Disease-Associated Artery/Lesion type: [place] artery [place] vs. transplanted heart: [place] heart Associated angina: without angina Anemia D64.9
[2021-07-16] MEDS: spironolactone 25 mg Tablet PO (09:34)
[2021-07-16] MEDS: doxycycline 100 mg Tablet PO ×2 (09:34→18:00)
[2021-07-16] MEDS: sevelamer 800 mg Tablet 2400 MG PO ×3 (09:34→18:01)
[2021-07-16] MEDS: NIFEdipine ER (24 hr) 30 mg Tablet 60 MG PO (09:34)
[2021-07-16] MEDS: docusate sodium 100 mg Capsule 200 MG PO ×2 (09:34→18:01)
[2021-07-16] MEDS: famotidine 20 mg Tablet PO ×2 (09:34→18:01)
[2021-07-16] MEDS: aspirin 81 mg EC Tablet PO (09:34)
[2021-07-16] MEDS: gabapentin 300 mg Capsule PO ×2 (09:35→18:01)
--- NOTE | 2021-07-16 10:04 | PM.PN ---
Subjective Subjective: Interval history: Mr. Mullen feels better today after several sessions of hemodialysis over the last few days. He still remains on 4 L nasal cannula and was able to lay flat more comfortably today. Echocardiogram is appreciated, with reduced ejection fraction of 40% and moderate aortic stenosis. Hemodynamics reviewed, remain on the softer side but otherwise remained stable. Minimal extremity edema at this time. Vitals/I&O/Wt Last Vital Signs Temp 97.7 F 07/16/21 07:49 Pulse 64 07/16/21 08:33 Resp 18 07/16/21 08:33 BP 121/77 07/16/21 07:49 Pulse Ox 96 07/16/21 08:33 07/15/21 07/16/21 07/16/21 22:59 06:59 14:59 Intake Total 500 / 1140 200 / 1340 Output Total 2566 / 2866 Balance -2066 / -1726 200 / -1526 Weight last 48 hrs Weight 126.2 kg Weight 126.5 kg Physical Exam Narrative: EXAM NARRATIVE: Constitutional: Awake, comfortable HEENT: Wet mucosa, no jvp, non icteric Lungs: Bilaterally clear without discernible wheeze, rales in all lung zones CVS: S1 S2, no murmurs Abdo: Soft, BS ok Ext 4: Minimal edema, peripheral perfusion with no cyanosis Neurological: Grossly non-focal Data : 07/16/21 05:11 07/16/21 05:11 A&P Additional A&P Information 1. ESRD No acute indication for dialysis today, however, depending upon the plan from cardiology we can provide this service if potentially beneficial. We will plan for dialysis tomorrow as part of his regular schedule. 3K, ultrafiltration 2-3 L as tolerated Dose medication for GFR less than 50 2. Shortness of breath Likely in part secondary to hypervolemia, however, new findings on his echocardiogram are concerning. Input from Dr. Johnson is appreciated. Final plan from cardiology is pending. May need to have angiogram for evaluation of reduced ejection fraction. If he has difficulty with orthopnea we can dialyze him before his angiogram, if there is concern for fluid overload after the angiogram we may also dialyze him then. Of note dialyzing of contrast is otherwise clinically ineffective. 3. Anemia of ESRD Hemoglobin levels remain relatively stable at 9.4 g/dL. We will continue to watch for the time being. 4. Chemistry looks to be stable. Potassium stable, phosphorus only slightly elevated, continue Renvela. Mir Daugherty MD Nephrology [phone] Patient seen and examined via telemedicine, with the assistance of the bedside RN > 25 min spent in evaluation and mgmt of patient Attestations Medical Necessity Statement*: ESRD mgmt Coding Level of Care Code Acute Office Assistant Receptionist for Joceg Watson
[2021-07-16 10:36] LABS: Glucose Point of Care 176 mg/dL (70-110)
[2021-07-16 10:36] LABS: Glucose Point of Care 317 mg/dL (70-110)
[2021-07-16 10:37] LABS: Glucose Point of Care 135 mg/dL (70-110)
[2021-07-16 10:37] LABS: Glucose Point of Care 137 mg/dL (70-110)
[2021-07-16 10:37] LABS: Glucose Point of Care 180 mg/dL (70-110)
[2021-07-16 11:26] LABS: Glucose Point of Care 296 mg/dL (70-110)
[2021-07-16] MEDS: insulin lispro 100 unit/1 mL SUBCUT ×3 (12:20→20:55)
--- NOTE | 2021-07-16 12:22 | PM.PN ---
Subjective Subjective: Interval history: Today patient states he feeling better he had a dialysis yesterday is waiting for liters oxygen. Unfortunately he was sitting and eating double cheeseburger along with onion rings when I entered the room. He is noncompliant with food. Medications: Reviewed: Yes Medication Review Details: Current Medications Acetaminophen (Acetaminophen 325 Mg Tablet) 650 mg PO Q6H PRN PRN Reason: Mild/Mod Pain Or Temp >/= 101 Albuterol/Ipratropium (Ipratropium-Albuterol 3 Ml Neb) 3 ml INHALATION Q4H.RESPIRATORY [facility] Last Admin: 07/15/21 04:06 Dose: 3 ml Documented by: Aspirin (Aspirin 81 Mg Ec Tablet) 81 mg PO DAILY@09 [facility] Last Admin: 07/14/21 09:00 Dose: 81 mg Documented by: Atorvastatin Calcium (Atorvastatin 40 Mg Tablet) 80 mg PO DAILY@1800 [facility] Last Admin: 07/14/21 17:45 Dose: 80 mg Documented by: Dextrose (Dextrose 50% Syringe 50 Ml) 25 ml IVP ONCE PRN; Protocol PRN Reason: hypoglycemia protocol Dextrose (Dextrose 50% Syringe 50 Ml) 50 ml IVP PRN PRN; Protocol PRN Reason: hypoglycemia protocol Docusate Sodium (Docusate Sodium 100 Mg Capsule) 200 mg PO BID@ [facility] Last Admin: 07/14/21 17:45 Dose: 200 mg Documented by: Doxycycline Monohydrate (Doxycycline 100 Mg Tablet) 100 mg PO BID [facility]; Protocol Last Admin: 07/14/21 17:44 Dose: 100 mg Documented by: Famotidine (Famotidine 20 Mg Tablet) 20 mg PO BID@ [facility] Last Admin: 07/14/21 17:45 Dose: 20 mg Documented by: Gabapentin (Gabapentin 300 Mg Capsule) 300 mg PO BID@ [facility] Last Admin: 07/14/21 17:45 Dose: 300 mg Documented by: Glucagon (Glucagon 1 Mg/Ml Inj 1 Ml) 1 mg IM ONCE PRN; Protocol PRN Reason: Adult Acute Hypoglycemia Prot. Heparin Sodium (Porcine) (Heparin 5,000 Unit/Ml Inj 1 Ml) 5,000 unit SUBCUT Q12H [facility] Albumin Human (Albumin) 12.5 gm in 50 mls @ 60 mls/hr IV PRN PRN PRN Reason: Hypotension and/or symptomatic Dextrose (D5w) 500 mls @ 100 mls/hr IV ONCE PRN; Protocol PRN Reason: Adult Acute Hypoglycemia Prot Insulin Glargine (Insulin Glargine 100 Units/1 Ml) [facility] Last Admin: 07/14/21 08:14 Dose: Not Given Documented by: Insulin Human Lispro (Insulin Lispro 100 Unit/1 Ml) 0 unit SUBCUT WM&BEDTIME [facility]; Protocol Last Admin: 07/15/21 07:28 Dose: Not Given Documented by: Nifedipine (Nifedipine Er (24 Hr) 30 Mg Tablet) 60 mg PO DAILY@ [facility] Last Admin: 07/14/21 09:00 Dose: 60 mg Documented by: Non-Formulary Medication (Tiotropium-Olodaterol [Stiolto Respimat]) 2 puff [facility] Last Admin: 07/15/21 05:04 Dose: Not Given Documented by: Ondansetron HCl (Ondansetron 2 Mg/Ml Sdv 2 Ml) 4 mg IVP Q6H PRN PRN Reason: vomiting, or N/V if npo Oxycodone/Acetaminophen (Oxycodone-Apap 5-325 Mg Tablet) 1 tab PO BID PRN PRN Reason: Pain Polyethylene Glycol (Polyethylene Glycol 3350 Pkt 17 Gm) 17 gm PO DAILY PRN PRN Reason: Constipation Sevelamer Carbonate (Sevelamer 800 Mg Tablet) 2,400 mg PO TID@,, [facility] Last Admin: 07/14/21 17:45 Dose: 2,400 mg Documented by: Spironolactone (Spironolactone 25 Mg Tablet) 25 mg PO DAILY@ [facility] Last Admin: 07/14/21 09:00 Dose: 25 mg Documented by: Vitals/I&O/Wt Last Vital Signs Temp 97.8 F 07/16/21 11:43 Pulse 69 07/16/21 11:43 Resp 18 07/16/21 11:43 BP 129/66 07/16/21 11:43 Pulse Ox 96 07/16/21 11:43 07/15/21 07/16/21 07/16/21 22:59 06:59 14:59 Intake Total 500 / 1140 200 / 1340 Output Total 2566 / 2866 Balance -2066 / -1726 200 / -1526 Weight last 48 hrs Weight 278 lb 3.574 oz Weight 278 lb 14.156 oz Physical Exam Narrative: EXAM NARRATIVE: GENERAL: Patient is alert, awake and oriented x3. Sitting by the bedside NECK: No jugular vein distension. HEENT: No cyanosis. No icterus. No pallor. HEART: Regular S1 and S2. No murmur, rub or gallop. LUNGS: Decreased breath sounds bilaterally. ABDOMEN: Soft, nontender and nondistended. Positive bowel sounds. No guarding, rebound or tenderness. CENTRAL NERVOUS SYSTEM: Grossly nonfocal. EXTREMITIES: Lower extremities without edema bilaterally. Data : 07/16/21 05:11 07/16/21 05:11 A&P Assessment and plan (1) CHF (congestive heart failure): At this point appeared to be compensated, he has good fluid ruled out by dialysis. Status: Acute Qualifiers: Heart failure type: systolic Heart failure chronicity: acute on chronic Qualified Code(s): I50.23 - Acute on chronic systolic (congestive) heart failure (2) CAD (coronary artery disease): Patient has new onset of LV dysfunction. He has history of coronary artery disease we will proceed with left heart cath. Status: Acute Qualifiers: Coronary Disease-Associated Artery/Lesion type: [place] artery [place] vs. transplanted heart: [place] heart Associated angina: without angina Qualified Code(s): I25.10 - Atherosclerotic heart disease of [place] coronary artery without angina pectoris (3) S/P dialysis catheter insertion: On dialysis. Continue current regimen Status: Acute (4) S/P cardiac pacemaker procedure: Working in a good condition. Status: Acute (5) LV dysfunction: May need further exploration with left heart cath. Status: Acute Attestations Medical Necessity Statement*: Patient require continuation hospitalization for above defined care. Coding Level of Care Code Established Pt Acute Master Tax Advisor for Chg Fwd Patient Type Established History Detailed Exam Detailed Medical Decision Making Moderate Complexity Diagnoses CHF (congestive heart failure) I50.23 Heart failure type: systolic Heart failure chronicity: acute on chronic CAD (coronary artery disease) I25.10 Coronary Disease-Associated Artery/Lesion type: [place] artery [place] vs. transplanted heart: [place] heart Associated angina: without angina S/P dialysis catheter insertion Z95.828; Z99.2 S/P cardiac pacemaker procedure Z95.0 LV dysfunction I51.9
--- NOTE | 2021-07-16 13:43 | PC.SOCIAL ---
IMM Update: pg 2 of IMM updated and reviewed w/ patient & . Copy provided.
[2021-07-16 17:43] LABS: Glucose Point of Care 328 mg/dL (70-110)
[2021-07-16] MEDS: atorvastatin 40 mg Tablet 80 MG PO (18:01)
[2021-07-16 20:49] LABS: Glucose Point of Care 233 mg/dL (70-110)
[2021-07-17] VITALS (51 sets, daily range): BP systolic 83–159; BP diastolic 52–92; PULSE 60–88; RESP 11–27; TEMP 36.3–37; O2SAT 82–99
[2021-07-17] MEDS: ipratropium-albuterol 3 mL Neb INHALATION ×7 (00:02→23:34)
[2021-07-17 05:45] LABS: Basophils # 0.1 10^3/uL (0.0-0.1); Basophils % 0.8 %; Eosinophils # 0.3 10^3/uL (0.0-0.8); Eosinophils % 5.4 %; Hemoglobin 9.4 g/dL (11.7-16.6); Lymphocytes # 1.2 10^3/uL (0.8-4.8); Lymphocytes % 19.5 %; Mean Corpuscular HGB Conc 32.4 g/dL (30.0-36.0); Mean Corpuscular Hemoglobin 30.2 pg (28.0-34.0); Mean Corpuscular Volume 93.2 fl (80-94); Mean Platelet Volume 10.6 fL (7.4-10.4); Monocytes # 0.7 10^3/uL (0.2-0.9); Monocytes % 11.2 %; Neutrophils # 3.99 10^3/uL (1.8-7.7); Neutrophils % 62.8 %; Nucleated Red Blood Cells % 0 %; Platelet Count 201 10^3/cmm (130-400); Red Blood Count 3.11 10^6/uL (4.1-5.3); Red Cell Distribution Width 16.5 % (12.1-15.1); White Blood Count 6.4 10^3/uL (4.0-10.0)
[2021-07-17 05:57] LABS: Blood Urea Nitrogen 48 mg/dL (8-23); Calcium 9.3 mg/dL (8.5-10.5); Carbon Dioxide 23 mmol/L (22-29); Chloride 97 mmol/L (98-107); Glucose 150 mg/dL (65-115); Osmolality Calculated 295 mOsm/kg (285-295); Sodium 135 mmol/L (136-145)
[2021-07-17] MEDS: insulin glargine 100 units/1 mL 50 UNIT SUBCUT (06:28)
[2021-07-17 06:44] LABS: Glucose Point of Care 153 mg/dL (70-110)
--- NOTE | 2021-07-17 08:30 | XACV_ITS ---
Wt: 126 kg BSA: 2.55 m2 Gender: Male : 1945 Any Known Allergies: Other Exam Priority: Routine Procedure(s): Procedure Description: Diagnostic procedure Procedure Description: Left Heart Catheterization Diagnostic Findings * Left Main has no disease. * Left Anterior Descending has no disease. * Proximal Right Coronary Artery: significant 75% stenosis, ARI: 3 flow. * Distal Right Coronary Artery: significant 80% stenosis, ARI: 3 flow. * Distal Right Coronary Artery: significant 80% stenosis, AIR: 3 flow. * Distal Circumflex: luminal irregularities 20% stenosis, ARI: 3 flow. * Posterior Descending Right: severe 90% stenosis, ARI: 3 flow. * Coronary angiography shows right dominance. Conclusions 1. There is severe coronary artery disease with two vessel disease. 2. We tried to attempt for intervention to the RCA however due to poor quality images secondary to Reprint Sorter setting, we deferred the intervention as I did not have surgical backup at the same time images qualities but not optimal therefore we will bring patient back for PCI to RCA later. Continue optimal medical management. Recommendations * Continue current medical management and risk factor modification. We will load patient with Plavix and bring him back for PCI to RCA over next few days. Diagnostic RX Recommendation: PCI w/o planned CABG Pressures Phase:Rest AO : 119 / 79 ( 98 ) @ 11:52:00 AM 219 / 107 ( 145 ) @ 11:56:00 AM Clinical Evaluation EBL: 5mL-10mL Procedural Details Procedure Consent Obtained. Dian Aguilar RN [facility] Slade Jacinto, MOVABLE BULKHEAD INSTALLER, scrub. Pre-Procedure Time Out. Identified patient by full name and date of as verbalized by the patient/guarantor. Does the consent match the physician's order: Yes. Accurate & Complete Informed Consent: Yes. Inpatient/Outpatient History & Physical on Chart: Yes. If H&P is completed, is and addenduem needed: N/A; If yes, is the addendum complete: N/A. Visualize and Verify Site with Patient/Guarantor: N/A. Relevant Radiology Images available: Yes. Pre-op teaching completed and patient verbalized understanding. The risks, benefits, and alternatives of sedation and/or procedure were discussed by physician. The patient agrees to continue. Procedure started. Correct patient, site and procedure confirmed by cath team. PERRLA. Strong, equal hand cellar packer bilaterally. Lungs clear x 5 lobes. IV Fluids: 0.9% NaCl at KVO. 0 mL infused prior to company laborer. Oxygen started at 5liters/min via nasal canula. right groin was prepped with chloroprep then draped in the usual sterile fashion. Physician notified. Baseline sample Acquired. HR: 61 BPM. Equipment: 6F - Femoral. Cardiac Cath Pack. ACnivio Manifold Kit Model BT 2000. Heparinized Saline (2 units/mL), 1000 mL bag. Kit, Micropuncture. Physician arrived. Physician scrubbed in. Immediate Pre-Procedure Time Out. Correct Patient: Yes; Correct Procedure: Yes; Correct Site: Yes; Correct Patient Position: Yes; Correct Supplies: Yes; Dried Flammable Prep: Yes; Blood Products Available: No;. Lidocaine 1% infiltrated to the right groin. Arterial access obtained with micropuncture set. A 5 serbian JL4 catheter in over wire. Multiple views taken of left coronary artery. Catheter out. A 5 serbian JR4 catheter in over wire. Multiple views taken of right coronary artery. Inventory is CRD 6FR JR 4 GUIDE 100cm. Inventory is Medtronic [place] XT .014 [address] Guidewire. 6 serbian JR 4 guide catheter was inserted over the wire. [place] guidewire was advanced through the guide catheter to lesion in the distal RCA. balloon inserted and removed intact. Wire out. Guide catheter out. A Suture was successful obtaining hemostatsis at the Right Femoral artery insertion site. Sheath(s) sutured into position with 2-0 silk and sterile 4x4's and Op-site applied over the site. No oozing or signs and symptoms of hematoma noted. Post Procedure: Pulses reassessed and unchanged. PERRLA. Strong, equal hand cellar packer bilaterally. No VTE prophylaxis required. Medication's Wasted: Heparin = 3000 units. Total IV fluids: 22 mL. Fluoro: 6:06. Contrast type used: Visipaque 320 mgI/mL, 500 mL bottle. [id number]. Post-op diagnosis: RCA disease. Complications: none. Estimated blood loss: 5mL-10mL. Procedure completed. Patient transferred by bed to CPRU. [facility] Clinical Fraility Score: 4: Vulnerable. Reprint Sorter Indications: Cardiomyopathy. Reprint Sorter Indications: LV Dysfunction. Chest Pain Symptom Assessment: Atypical Angina. Cardiovascular Instability: No. Vital chart was stopped. Access Site Site: Right Femoral artery Sheath Size: 6 Fr Hemostasis Method: Suture Hemostasis Success: Successful Procedure Medications Start: 1:34 PM Stop: 1:34 PM Medication: Versed Amount: 1 mg Route: I.V. Start: 1:34 PM Stop: 1:34 PM Medication: Fentanyl Amount: 50 mcg Route: I.V. Start: 1:39 PM Stop: 1:39 PM Medication: Versed Amount: 1 mg Route: I.V. Start: 1:53 PM Stop: 1:53 PM Medication: Versed Amount: 1 mg Route: I.V. Start: 2:03 PM Stop: 2:03 PM Medication: Heparin Amount: 8000 units Route: I.V. Start: 2:03 PM Stop: 2:03 PM Medication: Aggrastat 12.5 mg/250 mL Amount: 65 ml Route: I.V. bolus Start: 2:04 PM Stop: 2:04 PM Medication: Aggrastat 12.5 mg/250 mL Amount: 23.4 ml/hr Route: I.VJada negro I, the attending physician, have reviewed and verified all procedure medications. Yes, all medications given per verbal order History/Risk Factors Hypertension: No Dyslipidemia: No Peripheral Arterial Disease (PAD): No Myocardial Infarction ([place]): Yes Obesity: No Renal Disease: Yes Tobacco Use: Former Dialysis: Current Prior Interventions PCI: Yes CABG: No Valve Surgery: No Report Signatures Finalized by Saji Cohen MD on 08/03/2021 11:30 PM
[2021-07-17] MEDS: aspirin 81 mg EC Tablet PO (09:38)
--- NOTE | 2021-07-17 09:50 | P.PN_ITS ---
Subjective Subjective: Interval history: No new issues with Mr. Mullen today. He is breathing comfortably, he is actually down to 2 L despite not having hemodialysis yesterday. No new uremic symptoms. No chest pain, palpitations, orthopnea that he describes. Cardiology input appreciated, he is due to have an angiogram this morning. Medications: Reviewed: Yes Medication Review Details: Current Medications Acetaminophen (Acetaminophen 325 Mg Tablet) 650 mg PO Q6H PRN PRN Reason: Mild/Mod Pain Or Temp >/= 101 Albuterol/Ipratropium (Ipratropium-Albuterol 3 Ml Neb) 3 ml INHALATION Q4H.RESPIRATORY [facility] Last Admin: 07/15/21 04:06 Dose: 3 ml Documented by: Aspirin (Aspirin 81 Mg Ec Tablet) 81 mg PO DAILY@09 [facility] Last Admin: 07/14/21 09:00 Dose: 81 mg Documented by: Atorvastatin Calcium (Atorvastatin 40 Mg Tablet) 80 mg PO DAILY@1800 [facility] Last Admin: 07/14/21 17:45 Dose: 80 mg Documented by: Dextrose (Dextrose 50% Syringe 50 Ml) 25 ml IVP ONCE PRN; Protocol PRN Reason: hypoglycemia protocol Dextrose (Dextrose 50% Syringe 50 Ml) 50 ml IVP PRN PRN; Protocol PRN Reason: hypoglycemia protocol Docusate Sodium (Docusate Sodium 100 Mg Capsule) 200 mg PO BID@ [facility] Last Admin: 07/14/21 17:45 Dose: 200 mg Documented by: Doxycycline Monohydrate (Doxycycline 100 Mg Tablet) 100 mg PO BID [facility]; Protocol Last Admin: 07/14/21 17:44 Dose: 100 mg Documented by: Famotidine (Famotidine 20 Mg Tablet) 20 mg PO BID@ [facility] Last Admin: 07/14/21 17:45 Dose: 20 mg Documented by: Gabapentin (Gabapentin 300 Mg Capsule) 300 mg PO BID@ [facility] Last Admin: 07/14/21 17:45 Dose: 300 mg Documented by: Glucagon (Glucagon 1 Mg/Ml Inj 1 Ml) 1 mg IM ONCE PRN; Protocol PRN Reason: Adult Acute Hypoglycemia Prot. Heparin Sodium (Porcine) (Heparin 5,000 Unit/Ml Inj 1 Ml) 5,000 unit SUBCUT Q12H [facility] Albumin Human (Albumin) 12.5 gm in 50 mls @ 60 mls/hr IV PRN PRN PRN Reason: Hypotension and/or symptomatic Dextrose (D5w) 500 mls @ 100 mls/hr IV ONCE PRN; Protocol PRN Reason: Adult Acute Hypoglycemia Prot Insulin Glargine (Insulin Glargine 100 Units/1 Ml) 50 unit SUBCUT QAM [facility] Last Admin: 07/14/21 08:14 Dose: Not Given Documented by: Insulin Human Lispro (Insulin Lispro 100 Unit/1 Ml) 0 unit SUBCUT WM&BEDTIME [facility]; Protocol Last Admin: 07/15/21 07:28 Dose: Not Given Documented by: Nifedipine (Nifedipine Er (24 Hr) 30 Mg Tablet) 60 mg PO DAILY@ [facility] Last Admin: 07/14/21 09:00 Dose: 60 mg Documented by: Non-Formulary Medication (Tiotropium-Olodaterol [Stiolto Respimat]) [facility] puff [facility] Last Admin: 07/15/21 05:04 Dose: Not Given Documented by: Ondansetron HCl (Ondansetron 2 Mg/Ml Sdv 2 Ml) 4 mg IVP Q6H PRN PRN Reason: vomiting, or N/V if npo Oxycodone/Acetaminophen (Oxycodone-Apap 5-325 Mg Tablet) 1 tab PO BID PRN PRN Reason: Pain Polyethylene Glycol (Polyethylene Glycol 3350 Pkt 17 Gm) 17 gm PO DAILY PRN PRN Reason: Constipation Sevelamer Carbonate (Sevelamer 800 Mg Tablet) 2,400 mg PO TID@,,18 [facility] Last Admin: 07/14/21 17:45 Dose: 2,400 mg Documented by: Spironolactone (Spironolactone 25 Mg Tablet) 25 mg PO DAILY@ [facility] Last Admin: 07/14/21 09:00 Dose: 25 mg Documented by: Vitals/I&O/Wt Last Vital Signs Temp 97.8 F 07/17/21 08:00 Pulse 66 07/17/21 08:54 Resp 20 H 07/17/21 08:54 BP 134/87 07/17/21 08:00 Pulse Ox 97 07/17/21 08:54 07/16/21 07/17/21 07/17/21 22:59 06:59 14:59 Intake Total 840 / 840 200 / 1040 Balance 840 / 840 200 / 1040 Weight last 48 hrs Weight 126.2 kg Physical Exam Narrative: EXAM NARRATIVE: Constitutional: Awake, comfortable HEENT: Wet mucosa, no jvp, non icteric Lungs: Bilaterally clear without discernible wheeze, rales in all lung zones CVS: S1 S2, no murmurs Abdo: Soft, BS ok Ext 4: Minimal edema, peripheral perfusion with no cyanosis Neurological: Grossly non-focal Data : 07/17/21 05:08 07/17/21 05:08 A&P Additional A&P Information 1. ESRD Dialysis scheduled for later today after angiogram. 3K, ultrafiltration 2-3 L as tolerated Dose medication for GFR less than 50 2. Shortness of breath Likely in part secondary to hypervolemia, however, new findings on his echocardiogram are concerning. Plan for angiogram today 3. Anemia of ESRD Hemoglobin levels remain relatively stable at 9.4 g/dL. We will continue to watch for the time being. 4. Chemistry looks to be stable. Potassium stable, phosphorus only slightly elevated, continue Renvela. Mir Daugherty MD Nephrology [phone] Patient seen and examined via telemedicine, with the assistance of the bedside RN > 25 min spent in evaluation and mgmt of patient Attestations Medical Necessity Statement*: Eval for ESRD mgmt Coding Level of Care Code Acute Product Support Representative for Chg Watson
[2021-07-17 10:22] LABS: Vit D 1,25 (Oh)2, Total 24 pg/mL (18-72); Vit D2 1,25 (Oh)2 <8 pg/mL; Vit D3 1,25 (Oh)2 24 pg/mL
[2021-07-17] MEDS: NIFEdipine ER (24 hr) 30 mg Tablet 60 MG PO (10:32)
[2021-07-17] MEDS: famotidine 20 mg Tablet PO ×2 (10:33→17:53)
[2021-07-17] MEDS: doxycycline 100 mg Tablet PO ×2 (10:34→17:53)
[2021-07-17] MEDS: gabapentin 300 mg Capsule PO ×2 (10:34→17:53)
[2021-07-17] MEDS: spironolactone 25 mg Tablet PO (10:35)
[2021-07-17 11:14] LABS: Glucose Point of Care 161 mg/dL (70-110)
--- NOTE | 2021-07-17 14:10 | PM.PN ---
Subjective Subjective: Interval history: I saw Shon earlier today. He denies any shortness of breath. No chest discomfort overnight. To have an angiogram this afternoon which is currently undergoing. Medications: Reviewed: Yes Vitals/I&O/Wt Last Vital Signs Temp 97.4 F L 07/17/21 12:00 Pulse 67 07/17/21 12:59 Resp 18 07/17/21 12:59 BP 138/82 07/17/21 12:00 Pulse Ox 94 07/17/21 12:59 07/16/21 07/17/21 07/17/21 22:59 06:59 14:59 Intake Total 840 / 840 200 / 1040 Balance 840 / 840 200 / 1040 Weight last 48 hrs Weight 126.2 kg Physical Exam Narrative: EXAM NARRATIVE: General exam is a white male, no distress. Appears comfortable on 4 L of oxygen. Neck is supple no lymphadenopathy thyromegaly Cardiovascular regular rate and rhythm, heart sounds distant Lungs clear but with diminished breath sounds at the bases Abdomen obese nontender with positive bowel sounds. Extremities no significant edema. No cyanosis or clubbing. AV graft right upper extremity Data : 07/17/21 05:08 07/17/21 05:08 A&P Assessment and plan (1) CHF (congestive heart failure): Presentation consistent with pulmonary edema. BNP elevated, chest x-ray demonstrates pulmonary edema Most consistent with acute diastolic heart failure, but echo demonstrates there is an acute systolic failure component as well. Hemodialysis has improved his overall fluid status significantly. Now on 2 L of oxygen, greatly improved Echocardiogram demonstrated reduction in ejection fraction from previous, now at approximately 40% with moderate aortic stenosis, moderate mitral regurgitation Cardiology evaluation is underway, and he is currently getting an angiogram with RCA intervention. Status: Acute Qualifiers: Heart failure type: systolic Heart failure chronicity: acute on chronic Qualified Code(s): I50.23 - Acute on chronic systolic (congestive) heart failure (2) Respiratory failure with hypoxia: Improved No current evidence for pneumonia. Covid PCR negative Secondary to concern of bronchitis doxycycline ordered. Procalcitonin negative. Repeat chest x-ray peribronchial thickening, no obvious pneumonic process. Status: Acute (3) ESRD (end stage renal disease): Nephrology consultation appreciated He underwent 3 consecutive days of hemodialysis the last being on July 15. His typical schedule is Tuesday. Nephrology is planning on dialysis following his angiogram. 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 Currently undergoing angiogram Status: Acute Qualifiers: Coronary Disease-Associated Artery/Lesion type: [place] artery [place] vs. transplanted heart: [place] heart Associated angina: without angina Qualified Code(s): I25.10 - Atherosclerotic heart disease of [place] coronary artery without angina pectoris (6) Anemia: Mild. No evidence of acute blood loss. Secondary to renal disease. Status: Acute Additional A&P Information Diabetes mellitus. Continue long-acting insulin. Sliding scale. Presumed history of atrial fibrillation that will need to be clarified. On Eliquis chronically but holding currently as cardiology evaluation may be needed. We will need to reinitiate this at discharge. GERD, continue acid suppression Chronic neuropathy, continue Neurontin Full code Eliquis held in case cardiology procedures done. Placed on heparin subcutaneous currently. Plan is to restart Eliquis when appropriate. Attestations Medical Necessity Statement*: Needs continued hospitalization for exploration of decreased ejection fraction with angiogram today where he is receiving RCA stents. Coding Level of Care Code Acute Advertising Agent for Aurelia Chaudhari Diagnoses CHF (congestive heart failure) I50.23 Heart failure type: systolic Heart failure chronicity: acute on chronic Respiratory failure with hypoxia J96.91 ESRD (end stage renal disease) N18.6 Restrictive lung disease J98.4 CAD (coronary artery disease) I25.10 Coronary Disease-Associated Artery/Lesion type: [place] artery [place] vs. transplanted heart: [place] heart Associated angina: without angina Anemia D64.9
[2021-07-17 16:45] LABS: Glucose Point of Care 105 mg/dL (70-110)
[2021-07-17 16:56] LABS: Partial Thromboplastin Time 46.2 SECONDS (23.9-36.7)
[2021-07-17] MEDS: docusate sodium 100 mg Capsule 200 MG PO (17:52)
[2021-07-17] MEDS: atorvastatin 40 mg Tablet 80 MG PO (17:53)
[2021-07-17] MEDS: sevelamer 800 mg Tablet 2400 MG PO (17:54)
--- NOTE | 2021-07-17 19:00 | PC.NURSE ---
Cardiac sheath pulled at approximately 1835. Pressure was held for 20 min. Pt tolerated well. No swelling hematoma or bleeding noted. Drsg dry and intact. Pt had no c/o pain or discomfort at the present time. Call light in reach. Will cont to monitor.
[2021-07-17 20:05] LABS: Glucose Point of Care 170 mg/dL (70-110)
[2021-07-17] MEDS: insulin lispro 100 unit/1 mL SUBCUT (20:20)
--- NOTE | 2021-07-17 20:25 | PC.NURSE ---
asked to leave bedside at this time. Visiting hours ended at 8 pm. became upset and stated, they let me stay the nights two nights upstairs. Patient states, she needs to stay because she rubs my legs when they get cramps in the middle of the night.
--- NOTE | 2021-07-17 21:22 | PC.HD ---
30 minutes into treatment patient started cramping, UF off and cramps gradually subsided. Pt has no edema (legs have loose skin), lungs clear, pt's lips are chapped, and SBP stayed mostly in low 100s to 110s. Dr Daugherty notified that pt appears to be quite dry, unable to removed fluid.
[2021-07-18] VITALS (13 sets, daily range): BP systolic 111–160; BP diastolic 59–83; PULSE 60–79; RESP 14–20; TEMP 36.8–37.9; O2SAT 93–96
[2021-07-18] MEDS: oxyCODONE-APAP 5-325 mg Tablet 1 TAB PO (00:03)
--- NOTE | 2021-07-18 02:42 | PC.NURSE ---
Shift Note Frequent safety and comfort rounds continue. Orders and/or nursing care completed as indicated. Patient monitored for response to intervention and treatment(s). Will continue to monitor.
[2021-07-18 06:20] LABS: Basophils # 0.1 10^3/uL (0.0-0.1); Basophils % 0.8 %; Eosinophils # 0.3 10^3/uL (0.0-0.8); Eosinophils % 3.6 %; Hematocrit 28.3 % (42.0-52.0); Hemoglobin 9.2 g/dL (11.7-16.6); Lymphocytes # 1.1 10^3/uL (0.8-4.8); Mean Corpuscular HGB Conc 32.5 g/dL (30.0-36.0); Mean Corpuscular Hemoglobin 30.7 pg (28.0-34.0); Mean Corpuscular Volume 94.3 fl (80-94); Mean Platelet Volume 9.7 fL (7.4-10.4); Monocytes # 0.8 10^3/uL (0.2-0.9); Monocytes % 11.1 %; Neutrophils # 5.28 10^3/uL (1.8-7.7); Nucleated Red Blood Cells % 0 %; Platelet Count 225 10^3/cmm (130-400); Red Cell Distribution Width 16.6 % (12.1-15.1); White Blood Count 7.6 10^3/uL (4.0-10.0)
[2021-07-18 06:37] LABS: Glucose Point of Care 152 mg/dL (70-110)
[2021-07-18 06:39] LABS: Anion Gap 17.2 (5-19); Blood Urea Nitrogen 30 mg/dL (8-23); Calcium 9.2 mg/dL (8.5-10.5); Carbon Dioxide 25 mmol/L (22-29); Chloride 97 mmol/L (98-107); Glucose 115 mg/dL (65-115); Osmolality Calculated 287 mOsm/kg (285-295); Potassium 4.2 mmol/L (3.5-5.1); Sodium 135 mmol/L (136-145)
[2021-07-18] MEDS: ipratropium-albuterol 3 mL Neb INHALATION ×2 (08:09→11:35)
[2021-07-18] MEDS: aspirin 81 mg EC Tablet PO (08:36)
[2021-07-18] MEDS: doxycycline 100 mg Tablet PO (08:36)
[2021-07-18] MEDS: polyethylene glycol 3350 Pkt 17 gm PO (08:36)
[2021-07-18] MEDS: sevelamer 800 mg Tablet 2400 MG PO ×2 (08:36→12:10)
[2021-07-18] MEDS: docusate sodium 100 mg Capsule 200 MG PO (08:36)
[2021-07-18] MEDS: spironolactone 25 mg Tablet PO (08:37)
[2021-07-18] MEDS: famotidine 20 mg Tablet PO (08:37)
[2021-07-18] MEDS: NIFEdipine ER (24 hr) 30 mg Tablet 60 MG PO (08:37)
[2021-07-18] MEDS: gabapentin 300 mg Capsule PO (08:37)
[2021-07-18] MEDS: insulin lispro 100 unit/1 mL SUBCUT ×2 (08:37→12:02)
[2021-07-18] MEDS: insulin glargine 100 units/1 mL 50 UNIT SUBCUT (09:29)
--- NOTE | 2021-07-18 10:11 | PC.SOCIAL ---
IMM Updated Updated pt on Pg 2 IMM. No questions voiced. Provided pt a copy. Initialed, dated, & timed copy in chart.
[2021-07-18 11:26] LABS: Glucose Point of Care 221 mg/dL (70-110)
--- NOTE | 2021-07-18 12:08 | PM.PN ---
Subjective Subjective: Interval history: Please note that this is my note for yesterday which I forgot to put in. Patient underwent coronary angiogram yesterday with which was consistent with no significant disease in the left main circumflex and LAD. RCA was noted to have proximal mid and distal significant stenosis. Due to technical error in the Occupational Health Technician and nonavailability of surgical backup we decided not to attempt RCA for which she will be brought back for staged PCI. I do not think that RCA is contributing to reduced LV function however this is an incidental finding but this is a dominant large vessel which may need to be addressed at some point. Continue medical management. Medications: Reviewed: Yes Medication Review Details: Current Medications Acetaminophen (Acetaminophen 325 Mg Tablet) 650 mg PO Q6H PRN PRN Reason: Mild/Mod Pain Or Temp >/= 101 Albuterol/Ipratropium (Ipratropium-Albuterol 3 Ml Neb) 3 ml INHALATION Q4H.RESPIRATORY [facility] Last Admin: 07/15/21 04:06 Dose: 3 ml Documented by: Aspirin (Aspirin 81 Mg Ec Tablet) 81 mg PO DAILY@09 [facility] Last Admin: 07/14/21 09:00 Dose: 81 mg Documented by: Atorvastatin Calcium (Atorvastatin 40 Mg Tablet) 80 mg PO DAILY@1800 [facility] Last Admin: 07/14/21 17:45 Dose: 80 mg Documented by: Dextrose (Dextrose 50% Syringe 50 Ml) 25 ml IVP ONCE PRN; Protocol PRN Reason: hypoglycemia protocol Dextrose (Dextrose 50% Syringe 50 Ml) 50 ml IVP PRN PRN; Protocol PRN Reason: hypoglycemia protocol Docusate Sodium (Docusate Sodium 100 Mg Capsule) 200 mg PO BID@ [facility] Last Admin: 07/14/21 17:45 Dose: 200 mg Documented by: Doxycycline Monohydrate (Doxycycline 100 Mg Tablet) 100 mg PO BID [facility]; Protocol Last Admin: 07/14/21 17:44 Dose: 100 mg Documented by: Famotidine (Famotidine 20 Mg Tablet) 20 mg PO BID@ [facility] Last Admin: 07/14/21 17:45 Dose: 20 mg Documented by: Gabapentin (Gabapentin 300 Mg Capsule) 300 mg PO BID@ [facility] Last Admin: 07/14/21 17:45 Dose: 300 mg Documented by: Glucagon (Glucagon 1 Mg/Ml Inj 1 Ml) 1 mg IM ONCE PRN; Protocol PRN Reason: Adult Acute Hypoglycemia Prot. Heparin Sodium (Porcine) (Heparin 5,000 Unit/Ml Inj 1 Ml) 5,000 unit SUBCUT Q12H [facility] Albumin Human (Albumin) 12.5 gm in 50 mls @ 60 mls/hr IV PRN PRN PRN Reason: Hypotension and/or symptomatic Dextrose (D5w) 500 mls @ 100 mls/hr IV ONCE PRN; Protocol PRN Reason: Adult Acute Hypoglycemia Prot Insulin Glargine (Insulin Glargine 100 Units/1 Ml) [facility] [place] Admin: 07/14/21 08:14 Dose: Not Given Documented by: Insulin Human Lispro (Insulin Lispro 100 Unit/1 Ml) 0 unit SUBCUT WM&BEDTIME [facility]; Protocol Last Admin: 07/15/21 07:28 Dose: Not Given Documented by: Nifedipine (Nifedipine Er (24 Hr) 30 Mg Tablet) 60 mg PO DAILY@ [facility] Last Admin: 07/14/21 09:00 Dose: 60 mg Documented by: Non-Formulary Medication (Tiotropium-Olodaterol [Stiolto Respimat]) 2 puff [place] [facility] [place] Admin: 07/15/21 05:04 Dose: Not Given Documented by: Ondansetron HCl (Ondansetron 2 Mg/Ml Sdv 2 Ml) 4 mg IVP Q6H PRN PRN Reason: vomiting, or N/V if npo Oxycodone/Acetaminophen (Oxycodone-Apap 5-325 Mg Tablet) 1 tab PO BID PRN PRN Reason: Pain Polyethylene Glycol (Polyethylene Glycol 3350 Pkt 17 Gm) 17 gm PO DAILY PRN PRN Reason: Constipation Sevelamer Carbonate (Sevelamer 800 Mg Tablet) 2,400 mg PO TID@,, [facility] Last Admin: 07/14/21 17:45 Dose: 2,400 mg Documented by: Spironolactone (Spironolactone 25 Mg Tablet) 25 mg PO DAILY@ [facility] Last Admin: 07/14/21 09:00 Dose: 25 mg Documented by: Vitals/I&O/Wt Last Vital Signs Temp 98.2 F 07/18/21 08:00 Pulse 65 07/18/21 11:42 Resp 20 H 07/18/21 11:42 BP 127/62 07/18/21 08:00 Pulse Ox 95 07/18/21 11:42 07/17/21 07/18/21 07/18/21 22:59 06:59 14:59 Intake Total 500 / 500 400 / 900 360 / 360 Output Total 277 / 277 350 / 627 Balance 223 / 223 50 / 273 360 / 360 Weight last 48 hrs Weight 283 lb 4.704 oz Physical Exam Narrative: EXAM NARRATIVE: GENERAL: Patient is alert, awake and oriented x3. Laying the bed but cannot talk in complete sentences still appear to be short of breath NECK: No jugular vein distension. HEENT: No cyanosis. No icterus. No pallor. HEART: Regular S1 and S2. No murmur, rub or gallop. LUNGS: Decreased breath sounds bilaterally at the base mild crackles on left. ABDOMEN: Soft, nontender and protuberant obese. Denies tenderness CENTRAL NERVOUS SYSTEM: Grossly nonfocal. EXTREMITIES: Lower extremities without edema bilaterally. Data : 07/18/21 05:37 07/18/21 05:37 A&P Assessment and plan (1) CHF (congestive heart failure): Status: Acute Qualifiers: Heart failure type: systolic Heart failure chronicity: acute on chronic Qualified Code(s): I50.23 - Acute on chronic systolic (congestive) heart failure (2) CAD (coronary artery disease): Status: Acute Qualifiers: Coronary Disease-Associated Artery/Lesion type: [place] artery [place] vs. transplanted heart: [place] heart Associated angina: without angina Qualified Code(s): I25.10 - Atherosclerotic heart disease of [place] coronary artery without angina pectoris (3) S/P dialysis catheter insertion: Status: Acute (4) S/P cardiac pacemaker procedure: Status: Acute (5) LV dysfunction: Status: Acute Shortness of breath cannot be explained on the basis of RCA nor does reduction in LV function which appeared to be nonischemic in nature. Patient is noncompliant with food which make him retain water. He is not making enough urine and on hemodialysis/ultrafiltration which is the way to go. When they try to take fluid out of him he cramps. He has moderate mitral valve regurgitation which may be severe when he moves around. His only remedy is to keep his volume low weight reduction and compliance with the food. I will try to diurese him as well by optimizing his Lasix I am not sure how much urine he can make though. We appreciate nephrology consult and follow the recommendations. Attestations Medical Necessity Statement*: Patient require continuation hospitalization post angiogram Coding Level of Care Code Established Pt Acute Cabinet Professional for Aurelia Chaudhari Patient Type Established History Detailed Exam Detailed Medical Decision Making Moderate Complexity Diagnoses CHF (congestive heart failure) I50.23 Heart failure type: systolic Heart failure chronicity: acute on chronic CAD (coronary artery disease) I25.10 Coronary Disease-Associated Artery/Lesion type: [place] artery [place] vs. transplanted heart: [place] heart Associated angina: without angina S/P dialysis catheter insertion Z95.828; Z99.2 S/P cardiac pacemaker procedure Z95.0 LV dysfunction I51.9
--- NOTE | 2021-07-18 12:16 | P.PN_ITS ---
Subjective Subjective: Interval history: Patient underwent angiogram noted to have significant RCA disease with decided to manage staged PCI due to availability of backup in the OR technical error in the [employer] in regards to picture quality. This morning he still complaining of shortness of breath. He had dialysis yesterday he underwent ultrafiltration and removal of fluid. Medications: Reviewed: Yes Medication Review Details: Current Medications Acetaminophen (Acetaminophen 325 Mg Tablet) 650 mg PO Q6H PRN PRN Reason: Mild/Mod Pain Or Temp >/= 101 Albuterol/Ipratropium (Ipratropium-Albuterol 3 Ml Neb) 3 ml INHALATION Q4H.RESPIRATORY [facility] Last Admin: 07/15/21 04:06 Dose: 3 ml Documented by: Aspirin (Aspirin 81 Mg Ec Tablet) 81 mg PO DAILY@09 [facility] Last Admin: 07/14/21 09:00 Dose: 81 mg Documented by: Atorvastatin Calcium (Atorvastatin 40 Mg Tablet) 80 mg PO DAILY@1800 [facility] Last Admin: 07/14/21 17:45 Dose: 80 mg Documented by: Dextrose (Dextrose 50% Syringe 50 Ml) 25 ml IVP ONCE PRN; Protocol PRN Reason: hypoglycemia protocol Dextrose (Dextrose 50% Syringe 50 Ml) 50 ml IVP PRN PRN; Protocol PRN Reason: hypoglycemia protocol Docusate Sodium (Docusate Sodium 100 Mg Capsule) 200 mg PO BID@ [facility] Last Admin: 07/14/21 17:45 Dose: 200 mg Documented by: Doxycycline Monohydrate (Doxycycline 100 Mg Tablet) 100 mg PO BID [facility]; Protocol Last Admin: 07/14/21 17:44 Dose: 100 mg Documented by: Famotidine (Famotidine 20 Mg Tablet) 20 mg PO BID@ [facility] Last Admin: 07/14/21 17:45 Dose: 20 mg Documented by: Gabapentin (Gabapentin 300 Mg Capsule) 300 mg PO BID@ [facility] Last Admin: 07/14/21 17:45 Dose: 300 mg Documented by: Glucagon (Glucagon 1 Mg/Ml Inj 1 Ml) 1 mg IM ONCE PRN; Protocol PRN Reason: Adult Acute Hypoglycemia Prot. Heparin Sodium (Porcine) (Heparin 5,000 Unit/Ml Inj 1 Ml) 5,000 unit SUBCUT Q12H [facility] Albumin Human (Albumin) 12.5 gm in 50 mls @ 60 mls/hr IV PRN PRN PRN Reason: Hypotension and/or symptomatic Dextrose (D5w) 500 mls @ 100 mls/hr IV ONCE PRN; Protocol PRN Reason: Adult Acute Hypoglycemia Prot Insulin Glargine (Insulin Glargine 100 Units/1 Ml) 50 unit SUBCUT QAM [facility] Last Admin: 07/14/21 08:14 Dose: Not Given Documented by: Insulin Human Lispro (Insulin Lispro 100 Unit/1 Ml) 0 unit SUBCUT WM&BEDTIME [facility]; Protocol Last Admin: 07/15/21 07:28 Dose: Not Given Documented by: Nifedipine (Nifedipine Er (24 Hr) 30 Mg Tablet) 60 mg PO DAILY@ [facility] Last Admin: 07/14/21 09:00 Dose: 60 mg Documented by: Non-Formulary Medication (Tiotropium-Olodaterol [Stiolto Respimat]) [facility] [place] Admin: 07/15/21 05:04 Dose: Not Given Documented by: Ondansetron HCl (Ondansetron 2 Mg/Ml Sdv 2 Ml) 4 mg IVP Q6H PRN PRN Reason: vomiting, or N/V if npo Oxycodone/Acetaminophen (Oxycodone-Apap 5-325 Mg Tablet) 1 tab PO BID PRN PRN Reason: Pain Polyethylene Glycol (Polyethylene Glycol 3350 Pkt 17 Gm) 17 gm PO DAILY PRN PRN Reason: Constipation Sevelamer Carbonate (Sevelamer 800 Mg Tablet) 2,400 mg PO TID@,, [facility] Last Admin: 07/14/21 17:45 Dose: 2,400 mg Documented by: Spironolactone (Spironolactone 25 Mg Tablet) 25 mg PO DAILY@ [facility] Last Admin: 07/14/21 09:00 Dose: 25 mg Documented by: Vitals/I&O/Wt Last Vital Signs Temp 98.2 F 07/18/21 08:00 Pulse 65 07/18/21 11:42 Resp 20 H 07/18/21 11:42 BP 127/62 07/18/21 08:00 Pulse Ox 95 07/18/21 11:42 07/17/21 07/18/21 07/18/21 22:59 06:59 14:59 Intake Total 500 / 500 400 / 900 360 / 360 Output Total 277 / 277 350 / 627 Balance 223 / 223 50 / 273 360 / 360 Weight last 48 hrs Weight 283 lb 4.704 oz Physical Exam Narrative: EXAM NARRATIVE: GENERAL: Patient is alert, awake and oriented x3. Laying the bed but cannot talk in complete sentences still appear to be short of breath NECK: No jugular vein distension. HEENT: No cyanosis. No icterus. No pallor. HEART: Regular S1 and S2. No murmur, rub or gallop. LUNGS: Decreased breath sounds bilaterally at the base mild crackles on left. ABDOMEN: Soft, nontender and protuberant obese. Denies tenderness CENTRAL NERVOUS SYSTEM: Grossly nonfocal. EXTREMITIES: Lower extremities without edema bilaterally. Data : 07/18/21 05:37 07/18/21 05:37 A&P Assessment and plan (1) CHF (congestive heart failure): Status: Acute Qualifiers: Heart failure type: systolic Heart failure chronicity: acute on chronic Qualified Code(s): I50.23 - Acute on chronic systolic (congestive) heart failure (2) CAD (coronary artery disease): Status: Acute Qualifiers: Coronary Disease-Associated Artery/Lesion type: [place] artery [place] vs. transplanted heart: [place] heart Associated angina: without angina Qualified Code(s): I25.10 - Atherosclerotic heart disease of [place] coronary artery without angina pectoris (3) S/P dialysis catheter insertion: Status: Acute (4) S/P cardiac pacemaker procedure: Status: Acute (5) LV dysfunction: Status: Acute Shortness of breath cannot be explained on the basis of RCA nor does reduction in LV function which appeared to be nonischemic in nature. Patient is noncompliant with food which make him retain water. He is not making enough urine and on hemodialysis/ultrafiltration which is the way to go. When they try to take fluid out of him he cramps. He has moderate mitral valve regurgitation which may be severe when he moves around. His only remedy is to keep his volume low weight reduction and compliance with the food. I will try to diurese him as well by optimizing his Lasix I am not sure how much urine he can make though. We appreciate nephrology consult and follow the recommendations. Continue recommendation as above continue to pull fluid as per nephrology which is the important remedy for him may will try diuretics. Will add isosorbide mononitrate and IV Lasix Attestations Medical Necessity Statement*: Patient require continuation hospitalization for above defined care. 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 transplanted heart: [place] heart Associated angina: without angina S/P dialysis catheter insertion Z95.828; Z99.2 S/P cardiac pacemaker procedure Z95.0 LV dysfunction I51.9
--- NOTE | 2021-07-18 13:44 | P.PN_ITS ---
Subjective Subjective: Interval history: There is plan for staged PCI for RCA lesion as per cardiology recommendation, for now plan is to keep him on renal dialysis diet, cardio is planning for diuresis with hemodialysis Last session was on Tuesday Please review cardiology note for further details regarding intervention on 07/17 Patient is stating that at rest he would be fine but with minimal exertion he does get short of breath, uses 2 to 3 L at home as well currently at 3 L Vitals/I&O/Wt Last Vital Signs Temp 98.2 F 07/18/21 08:00 Pulse 79 07/18/21 12:00 Resp 14 07/18/21 12:00 BP 158/83 07/18/21 12:00 Pulse Ox 95 07/18/21 11:42 07/17/21 07/18/21 07/18/21 22:59 06:59 14:59 Intake Total 500 / 500 400 / 900 600 / 600 Output Total 277 / 277 350 / 627 Balance 223 / 223 50 / 273 600 / 600 Weight last 48 hrs Weight 128.5 kg Physical Exam Narrative: EXAM NARRATIVE: Elderly male Appears stated age Sitting at the bedside Fluid overloaded state 3+ pitting edema lower extremity edema Paced rhythm S1, S2 Distended abdomen with obesity Saturating well on 3 L nasal cannula audible wheezing however on lung auscultation I do not appreciate wheezing with breath sounds Nonfocal neuro exam Data : 07/18/21 05:37 07/18/21 05:37 A&P Assessment and plan (1) LV dysfunction: Status: Acute (2) S/P cardiac pacemaker procedure: Status: Acute (3) Anemia: Status: Acute (4) ESRD (end stage renal disease): Status: Acute (5) Respiratory failure with hypoxia: Status: Acute (6) CHF (congestive heart failure): Status: Acute Qualifiers: Heart failure type: systolic Heart failure chronicity: acute on chronic Qualified Code(s): I50.23 - Acute on chronic systolic (congestive) heart failure (7) Chronic anticoagulation: Status: Acute (8) Small airways disease: Status: Acute (9) Pacemaker: Status: Acute Additional A&P Information Acute combined congestive heart failure exacerbation History of coronary disease Patient does have shortness of breath on minimal exertion Cardiology planning for staged PCI of RCA Please see cardiology note for further details Plan to diurese him and get him dialyzed on Tuesday Chronic hypoxic resp failure Currently saturating well on 3 L cannula which is his home requirement At rest he does fine but with minimal exertion he does get short of breath Paced rhythm Heart rate in 70s Afebrile Moderate aortic valve stenosis, moderate MR End-stage renal disease Tuesday Restrictive lung disease No acute exacerbation does have vascular congestion on chest x-ray No signs of pneumonia Anemia chronic disease hemoglobin stable Macrocytosis related to renal disease check B12 level Type II Diabetes: Sliding scale History of A. fib: At home takes Eliquis, we will keep him on Lovenox for now as there is plan for staged intervention Neurontin for neuropathy Full code Attestations Medical Necessity Statement*: Continue medical management Time Spent in Patient Care: less than 15 minutes Coding Level of Care Code Acute Windows Migration Technician for Aurelia Chaudhari Diagnoses LV dysfunction I51.9 S/P cardiac pacemaker procedure Z95.0 Anemia D64.9 ESRD (end stage renal disease) N18.6 Respiratory failure with hypoxia J96.91 CHF (congestive heart failure) I50.23 Heart failure type: systolic Heart failure chronicity: acute on chronic Chronic anticoagulation Z79.01 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
--- NOTE | 2021-07-18 14:25 | XRR_ITS ---
PROCEDURE INFORMATION: Exam: XR Chest Exam date and time: 07/18/2021 2:25 PM Age: 76 years old Clinical indication: Dyspnea; Additional info: Chf TECHNIQUE: Imaging protocol: XR of the chest. Views: 1 view. Total images: 1 COMPARISON: CR XR chest 1V portable [id number] 07/14/2021 2:07 PM FINDINGS: Tubes, catheters and devices: A pacemaker device is present, its leads in appropriate position. Lungs: Pulmonary vascular congestion improved. Bilateral interstitial pulmonary opacities have improved in the upper lobes from the prior exam. Pleural spaces: Unremarkable. No pleural effusion. No pneumothorax. Heart/Mediastinum: Cardiomegaly. Bones/joints: Unremarkable. XR/XR chest 1V portable [id number] IMPRESSION: 1. Cardiomegaly with improved pulmonary vascular congestion. 2. Bilateral interstitial pulmonary opacities have improved in the upper lobes from the prior exam. Radiation Dose CTDIVOL = (mGy): DLP = (mGy-cm)
--- NOTE | 2021-07-18 14:56 | PM.DCS ---
Discharge Providers Date of Admission: 07/13/21 11:40 Date of Discharge: July 18, 2021 Attending Provider at Admission: Ron Piña MD Attending Provider at Discharge: Saji Naidu MD Primary Care Provider: Adria Artis DO Diagnoses at Discharge Discharge Diagnosis (1) LV dysfunction: Status: Acute (2) S/P cardiac pacemaker procedure: Status: Acute (3) Anemia: Status: Acute (4) ESRD (end stage renal disease): Status: Acute (5) Respiratory failure with hypoxia: Status: Acute (6) CHF (congestive heart failure): Status: Acute Qualifiers: Heart failure chronicity: acute on chronic Heart failure type: systolic Qualified Code(s): I50.23 - Acute on chronic systolic (congestive) heart failure (7) Chronic anticoagulation: Status: Acute (8) Small airways disease: Status: Acute (9) Pacemaker: Status: Acute Reason for Visit Reason for Visit: O2 Levels 78% Hospital Course Hospital Course History of Present Illness by Dr. Piña Shon Mullen is a 76 year old male with end-stage renal disease on hemodialysis who presents from home with increasing shortness of breath since Tuesday. He reports he has not had a cough, chest discomfort, fever, vomiting, diarrhea. He has been vaccinated for Covid with both immunizations, the last one in March. He has not had any exposure to anybody with Covid nor does he have a history of Covid. He is typically maintained on just 2 L of oxygen secondary to restrictive lung disease and small airway disease. Dialysis nurse relates that he occasionally will cramp and will occasionally reduce amount of fluid removed but for the most part they can remove adequate amount of fluid with dialysis. He has not missed any dialysis lately. In the emergency department he was noted to be hypoxic, and testing indicated pulmonary edema. He was placed on BiPAP and nephrology was called for hemodialysis. Hospital course Patient was admitted for management of fluid overloaded state with symptoms of shortness of breath on exertion. His symptoms improved with use of BiPAP, hemodialysis, cardiology was consulted for evaluation of new onset reduced ejection fraction 38% heart failure. coronary angiogram on 07/17 (RCA lesion). On 07/[address] Cohen, recommended outpatient follow-up within 7 days and for shortness of breath recommended diuresis with Lasix 80 mg daily. I will also given doxycycline for next 3 days for bronchitis. His fluid overload state most likely secondary to dietary indiscretion patient does not follow cardiac/renal diet. Repeat chest x-ray before discharge shows improvement in vascular congestion and aeration of bilateral lungs. Patient will be continuing his home medications Eliquis, aspirin, only two medications are added at the time of discharge doxycycline and Lasix. Physical Exam Narrative: EXAM NARRATIVE: Obese elderly male Sitting at the bedside Saturating well on 2 L nasal cannula Distended abdomen with obesity Signs of CHF exacerbation Bilateral lower extremity 3+ pitting edema Bilateral breath sound with mild crackles at the bases Patient is asymptomatic, at rest No active chest pain EOMI, PERRLA nonfocal neuro exam Discharge Data Data Completed and Pending: Completed Studies During Hospitalization Category Date Time Status XR chest 1V selene ble [id number] Routine Exams 07/14/21 14:03 Completed XR chest 1V selene ble [id number] Urgent Exams 07/13/21 05:12 Completed CV. echo wo/w con trast [id number] Routin e Ultrasound 07/13/21 10:32 Completed Pending at discharge Category Date Time Status MID LEVEL NET DEVELOPER request for service Routin e Exams 07/17/21 08:30 Ordered XR chest 1V selene ble [id number] Routine Exams 07/18/21 14:25 Ordered Basic Metabolic P jocelyn AM LABS Lab 07/19/21 04:00 Ordered Complete Blood Co unt w/Auto AM LABS Lab 07/19/21 04:00 Ordered Labs from last 24 hours 07/18/21 07/18/21 07/18/21 11:11 06:33 05:37 WBC RBC Hgb Hct MCV MCH MCHC RDW Plt Count MPV Neut % (Auto) Lymph % (Auto) [place] % (Auto) Eos % (Auto) Baso % (Auto) Neut # (Auto) Lymph # (Auto) [place] # (Auto) Eos # (Auto) Baso # (Auto) Nucleated RBC % (a uto) Nucleated RBCs # APTT Sodium 135 L Potassium 4.2 Chloride 97 L Carbon Dioxide 25 Anion Gap 17.2 BUN 30 H Creatinine 3.5 H GFR Calculation Not Reportable Glucose 115 POC Glucose 221 H 152 H Calculated Osmolal ity 287 Calcium 9.2 07/18/21 07/17/21 07/17/21 05:37 19:56 16:39 WBC 7.6 RBC 3.00 L Hgb 9.2 L Hct 28.3 L MCV 94.3 H MCH 30.7 MCHC 32.5 RDW 16.6 H Plt Count 225 MPV 9.7 Neut % (Auto) 70.0 Lymph % (Auto) 14.0 [place] % (Auto) 11.1 Eos % (Auto) 3.6 Baso % (Auto) 0.8 Neut # (Auto) 5.28 Lymph # (Auto) 1.1 [place] # (Auto) 0.8 Eos # (Auto) 0.3 Baso # (Auto) 0.1 Nucleated RBC % (a uto) 0 Nucleated RBCs # 0.0 APTT Sodium Potassium Chloride Carbon Dioxide Anion Gap BUN Creatinine GFR Calculation Glucose POC Glucose 170 H 105 Calculated Osmolal ity Calcium 07/17/21 16:32 WBC RBC Hgb Hct MCV MCH MCHC RDW Plt Count MPV Neut % (Auto) Lymph % (Auto) [place] % (Auto) Eos % (Auto) Baso % (Auto) Neut # (Auto) Lymph # (Auto) [place] # (Auto) Eos # (Auto) Baso # (Auto) Nucleated RBC % (a uto) Nucleated RBCs # APTT 46.2 H Sodium Potassium Chloride Carbon Dioxide Anion Gap BUN Creatinine GFR Calculation Glucose POC Glucose Calculated Osmolal ity Calcium Vitals: Last Vital Signs Temp 98.2 F 07/18/21 08:00 Pulse 79 07/18/21 12:00 Resp 14 07/18/21 12:00 BP 158/83 07/18/21 12:00 Pulse Ox 95 07/18/21 11:42 Discharge Plan Discharge Patient Disposition: Home Condition: Stable Prescriptions: New Lasix 80 mg tablet 80 mg PO DAILY Qty: 10 RF: 0 doxycycline hyclate 100 mg capsule 100 mg PO BID 3 Days Qty: 6 RF: 0 Continued atorvastatin 80 mg tablet 80 mg PO DAILY@1800 RF: 0 nifedipine 60 mg tablet extended release 60 mg PO DAILY@09 RF: 0 All Day Allergy (cetirizine) 10 mg capsule 10 mg PO DAILY@09 RF: 0 nitroglycerin 0.4 mg tablet, sublingual 0.4 mg SUBLINGUAL Q5M PRN (Reason: Chest Pain) RF: 0 Mircera 30 mcg/0.3 mL syringe 60 mcg SUBCUT Q14D RF: 0 gabapentin 300 mg capsule 300 mg PO BID@ RF: 0 sevelamer carbonate [Renvela] 800 mg tablet 2,400 mg PO TID@ RF: 0 omega-3 fatty acids [Fish Oil Concentrate] 1,000 mg capsule 1,000 mg PO BID@ RF: 0 spironolactone 25 mg tablet 25 mg PO DAILY@ RF: 0 albuterol sulfate 90 mcg/actuation HFA aerosol inhaler 2 puff inhalation Q6H PRN (Reason: shortness of breath or wheezing) 30 Days Qty: 8.5 RF: 3 famotidine [Pepcid] 20 mg tablet 20 mg PO BID@ RF: 0 Saxenda 3 mg/0.5 mL (18 mg/3 mL) pen injector 3 mg SUBCUT DAILY PRN (Reason: weight loss) RF: 0 allopurinol 100 mg Tablet 100 mg PO DAILY PRN (Reason: Gout) RF: 0 oxycodone-acetaminophen 5-325 mg Tablet 1 tab PO BID PRN (Reason: Pain) RF: 0 polyethylene glycol 3350 [Miralax] 17 gram/dose Powder 17 g PO DAILY PRN (Reason: Constipation) RF: 0 docusate sodium 100 mg Capsule 200 mg PO BID@ RF: 0 Lantus U-100 Insulin 100 unit/mL Solution 50 unit SUBCUT QAM RF: 0 B complex-vitamin C-folic acid 0.8 mg Tablet 1 tab PO DAILY@ RF: 0 Stiolto Respimat 2.5-2.5 mcg/actuation mist 2 puff inhalation QAM RF: 0 albuterol sulfate 2.5 mg /3 mL (0.083 %) Solution For Nebulization 2.5 mg inhalation Q6H PRN (Reason: Shortness Of Breath) RF: 0 lidocaine-prilocaine 2.5-2.5 % Cream 1 applic topical TID PRN (Reason: Pain) RF: 0 gentamicin 0.1 % Cream 1 applic TOPICAL TID PRN (Reason: unknown) RF: 0 cinacalcet 30 mg Tablet 30 mg PO .THREE TIMES A WEEK RF: 0 cholecalciferol (vitamin D3) 1,250 mcg (50,000 unit) Capsule 50,000 unit PO Q7D RF: 0 Adult Low Dose Aspirin 81 mg tablet,delayed release (DR/EC) 81 mg PO DAILY@09 Qty: 30 RF: 3 Eliquis 5 mg tablet 5 mg PO BID@09,18 30 Days Qty: 60 RF: 0 Discharge Orders: Discharge Order (Routine); Ordered 07/18/21 Ordered By: Saji Naidu Referrals: Saji Cohen MD [Physician] - 1 week ([facility] will be calling to schedule a cardiology followup to be seen in 1 week. If you don't hear from them by Tuesday afternoon, please give them a call. Thank you) Adria Artis, DO [Primary Care Provider] - 4-7 days ([facility] will be calling to schedule a hospital followup to be seen in 4 to 7 days. If you don't hear from them by early afternoon on Tuesday, please give them a call. Thank you) Discharge Diet: Cardiac Discharge Activity: Increase activity as tolerated Patient Instructions: Furosemide (By mouth), Heart Failure (DC), Emphysema (DC), Hypoxia (ED), CHF Stoplight, Opioid Safety, Post Angiogram Home Care Instructions Discharge Attestations Time Spent in Discharge Care*: less than 30 min Quality Metrics Clinical Quality Measures During this hospital stay, did patient experience: None Coding Level of Care Code Acute Chg FW DC note Diagnoses LV dysfunction I51.9 S/P cardiac pacemaker procedure Z95.0 Anemia D64.9 ESRD (end stage renal disease) N18.6 Respiratory failure with hypoxia J96.91 CHF (congestive heart failure) I50.23 Heart failure chronicity: acute on chronic Heart failure type: systolic Chronic anticoagulation Z79.01 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
[2021-07-18] MEDS: FUROsemide 40 mg Tablet 80 MG PO (15:07)
--- NOTE | 2021-07-18 17:25 | PM.PN ---
Subjective Subjective: Interval history: I am seeing him in follow up for his ESRD management and dialysis needs. Got HD yesterday. Does get short of breath on exertion Medications: Reviewed: Yes Vitals/I&O/Wt Last Vital Signs Temp 98.2 F 07/18/21 08:00 Pulse 79 07/18/21 15:18 Resp 14 07/18/21 15:18 BP 158/83 07/18/21 15:18 Pulse Ox 95 07/18/21 11:42 07/18/21 07/18/21 07/18/21 06:59 14:59 22:59 Intake Total 400 / 900 600 / 600 Output Total 350 / 627 265 / 265 Balance 50 / 273 600 / 600 -265 / 335 Weight last 48 hrs Weight 128.5 kg Physical Exam Const: COMMON NORMALS: no acute distress, patient oriented x3 and alert GENERAL APPEARANCE: cooperative ORIENTATION/CONSCIOUSNESS: Yes awake Resp: AUSCULTATION: crackles Cardio: COMMON NORMALS: S1 normal heart sound present and S2 normal heart sound present HEART SOUNDS: S1 normal heart sound present and S2 normal heart sound present GI: AUSCULTATION: Yes normoactive bowel sounds Extremity: GENERAL: Yes edema Neuro: COMMON NORMALS: patient oriented x3 SENSORIUM/ORIENTATION: Yes alert Skin: COMMON NORMALS: no rashes or lesions noted GENERAL SKIN EXAM: no rashes or lesions noted Data : 07/18/21 05:37 07/18/21 05:37 A&P Assessment and plan (1) ESRD (end stage renal disease): No indication for dialysis today. Status: Acute (2) CHF (congestive heart failure): Will get chest xray to assess fluid status. Add lasix 80mg po on non dialysis days Status: Acute Qualifiers: Heart failure type: systolic Heart failure chronicity: acute on chronic Qualified Code(s): I50.23 - Acute on chronic systolic (congestive) heart failure (3) Anemia: Follow hb Status: Acute Attestations Medical Necessity Statement*: ESRD Coding Level of Care Code Acute Artificial Fly Tier for [facility] Fwd Diagnoses ESRD (end stage renal disease) N18.6 CHF (congestive heart failure) I50.23 Heart failure type: systolic Heart failure chronicity: acute on chronic Anemia D64.9
== END 2021-07-18 15:30 | disposition home or self-care (01) | DRG 286 ==
LOC: ER 08:03 → ER IP 11:41 → MEDSURG 16:50 → CSU 07-17 15:16
PROVIDERS: Emergency Medicine; Internal Medicine Cardiovascular Disease; Internal Medicine Nephrology; Admitting Provider Internal Medicine; Emergency Provider Family Medicine; PCP Emergency Medicine Emergency Medical Services; Visit Provider Internal Medicine
DX: I13.2 Hypertensive heart and chronic kidney disease with heart failure and with stage 5 chronic kidney disease, or end stage renal disease (principal); I50.41 Acute combined systolic (congestive) and diastolic (congestive) heart failure; N18.6 End stage renal disease; J96.01 Acute respiratory failure with hypoxia; E11.22 Type 2 diabetes mellitus with diabetic chronic kidney disease; Z99.2 Dependence on renal dialysis; I25.10 Atherosclerotic heart disease of native coronary artery without angina pectoris; Z99.81 Dependence on supplemental oxygen; E78.00 Pure hypercholesterolemia, unspecified; I25.2 Old myocardial infarction; G47.33 Obstructive sleep apnea (adult) (pediatric); Z95.0 Presence of cardiac pacemaker; Z87.01 Personal history of pneumonia (recurrent); Z87.891 Personal history of nicotine dependence; J40 Bronchitis, not specified as acute or chronic; Z79.01 Long term (current) use of anticoagulants; Z79.82 Long term (current) use of aspirin; Z79.4 Long term (current) use of insulin; Z79.891 Long term (current) use of opiate analgesic; Z79.51 Long term (current) use of inhaled steroids; I08.0 Rheumatic disorders of both mitral and aortic valves; D63.1 Anemia in chronic kidney disease; K21.9 Gastro-esophageal reflux disease without esophagitis
CPT/HCPCS: 36415; 36416; 36600; 71045; 80048; 80053; 82306; 82310; 82652; 82728; 82805; 82962; 83540; 83550; 83735; 83880; 83970; 84100; 84145; 84484; 85025; 85610; 85730; 86706; 86803; 87340; 87426; 87635; 93005; 93454; 94640; 94660; 96365; 96372; 99291; C1769; C1887; C1894; C8929; J1644; J1815 ×2; J2250; J2920; J3010; J3246; J3490; J7030; Q3014; Q4081; Q9956; Q9967

== ENCOUNTER 2021-08-10 09:15 | Inpatient (IN) | payer OTHER, MEDICARE, SELFPAY ==
[2021-08-10] VITALS (7 sets, daily range): BP systolic 124–178; BP diastolic 73–111; PULSE 60–79; RESP 16–24; TEMP 36.4–37.4; O2SAT 92–99
--- NOTE | 2021-08-10 09:45 | ECG_ITS ---
[facility] Test Date: 2021-08-10 Pat Name: Shon Mullen Department: Room: Gender: Male Glassblower: : 1945 Requested By: Edgardo Espinoza Order Number: [id number] Reading MD: KINSEY VIVAS Measurements Intervals [place] Rate: 64 P: ME: QRS: -69 QRSD: 218 T: 107 QT: 526 QTc: 544 Interpretive Statements ELECTRONIC VENTRICULAR PACEMAKER ABNORMAL RHYTHM ECG INTERPRETATION BASED ON A DEFAULT AGE OF 40 YEARS Compared to ECG 07/14/2021 15:22:46 No significant changes Electronically Signed On 08-10-2021 12:50:55 CERAMIC ENGINEER by KISNEY VIVAS [id number]
--- NOTE | 2021-08-10 09:45 | XRR_ITS ---
PROCEDURE INFORMATION: Exam: XR Chest Exam date and time: 08/10/2021 9:45 AM Age: 76 years old Clinical indication: Cough and dyspnea; Additional info: Dyspnea/cough TECHNIQUE: Imaging protocol: XR of the chest. Views: 1 view. COMPARISON: CR (CHEST, ) 07/18/2021 3:38 PM FINDINGS: Tubes, catheters and devices: A cardiac pacing device is again seen projecting over the left chest. Lungs: There is increased lung markings and hazy bilateral airspace opacities. No large pleural effusion or pneumothorax. Pleural spaces: See Lungs finding. Heart/Mediastinum: Stable cardiomediastinal silhouette. Bones/joints: Unremarkable. XR/XR chest 1V portable [id number] IMPRESSION: Nonspecific imaging findings, which can be seen with multifocal pneumonia or pulmonary congestion. Clinical correlation is recommended. Radiation Dose CTDIVOL = (mGy): DLP = (mGy-cm)
[2021-08-10 10:02] LABS: Basophils # 0.1 10^3/uL (0.0-0.1); Basophils % 0.7 %; Eosinophils # 0.1 10^3/uL (0.0-0.8); Eosinophils % 0.5 %; Hematocrit 35.4 % (42.0-52.0); Hemoglobin 11.2 g/dL (11.7-16.6); Lymphocytes # 1.2 10^3/uL (0.8-4.8); Lymphocytes % 9.5 %; Mean Corpuscular HGB Conc 31.6 g/dL (30.0-36.0); Mean Corpuscular Hemoglobin 30.5 pg (28.0-34.0); Mean Corpuscular Volume 96.5 fl (80-94); Mean Platelet Volume 9.9 fL (7.4-10.4); Monocytes # 1.3 10^3/uL (0.2-0.9); Monocytes % 10.9 %; Neutrophils # 9.52 10^3/uL (1.8-7.7); Neutrophils % 77.6 %; Nucleated Red Blood Cells % 0.2 %; Platelet Count 265 10^3/cmm (130-400); Red Blood Count 3.67 10^6/uL (4.1-5.3); Red Cell Distribution Width 17.7 % (12.1-15.1); White Blood Count 12.3 10^3/uL (4.0-10.0)
[2021-08-10 10:09] LABS: Lactic Sepsis W/Reflex 3.6 mmol/L (0.5-2.2)
--- NOTE | 2021-08-10 10:10 | PC.NURSE ---
Pt placed on threat monitoring analyst upon entering the room.
[2021-08-10 10:19] LABS: Alanine Aminotransferase 17 U/L (0-41); Albumin Level 4.3 g/dL (3.5-5.2); Alkaline Phosphatase 90 IU/L (40-130); Anion Gap 21.1 (5-19); Aspartate Amino Transferase 17 U/L (0-40); Blood Urea Nitrogen 27 mg/dL (8-23); Calcium 8.9 mg/dL (8.5-10.5); Carbon Dioxide 28 mmol/L (22-29); Chloride 97 mmol/L (98-107); Creatine Phosphokinase 170 U/L (39-308); Globulin 3.5 g/dL (1.3-4.6); Glucose 135 mg/dL (65-115); Magnesium 1.9 mg/dL (1.7-2.3); NT Pro B Type Natriuretic Pept 26830 pg/mL (0-125); Osmolality Calculated 301 mOsm/kg (285-295); Potassium 4.1 mmol/L (3.5-5.1); Sodium 142 mmol/L (136-145); Total Bilirubin 0.6 mg/dL (0.15-1.2); Total Protein 7.8 g/dL (6.6-8.7)
--- NOTE | 2021-08-10 10:33 | W.ED.SOB ---
HPI - SOB/Dyspnea General: Chief Complaint: Shortness of Breath/Dyspnea Stated Complaint: SOB Time Seen by Provider: 08/10/21 09:30 History of Present Illness: HPI Narrative: 76-year-old male presents emergency room complaining of shortness of breath. Is a history of congestive heart failure and end-stage renal disease he did have a regular course of dialysis today he tells me they completed it. Evidently his oxygen saturation at dialysis was at 81%. Normally uses 3 L/min on arrival here he is requiring a mask nonrebreather to maintain sats in the mid to upper 90s. He denies any chest pain. Patient has a known history of coronary disease he tells me he had an angiogram done but they were unable to do any interventions because there is no surgical backup and he supposed to be going back to the [employer] [facility] [employer] for intervention at sometime in the near future. He did have a full run of dialysis this morning. MD elicited complaint: shortness of breath Pertinent past history: congestive heart failure Onset (ago): hour(s) Timing: constant Severity: mild Exacerbating factors: exertion Relieving factors: oxygen and upright position Known history of: congestive heart failure Associated symptoms: Reports chest congestion, cough and orthopnea; Deny abdominal pain, chest pain, diaphoresis, dizziness, extremity pain, fever(s), hemoptysis, lightheadedness, myalgias, nausea, palpitations, paresthesias, polydipsia, polyuria, sense of impending doom, syncope or vomiting Treatment prior to arrival: oxygen Review of Systems Const: Denies: fever(s) or diaphoresis Card: Reports: orthopnea; Denies: chest pain, palpitations, lightheadedness or syncope Resp: Reports: chest congestion; Denies: hemoptysis GI: Denies: abdominal pain, nausea or vomiting Musc: Denies: extremity pain Neuro: Denies: dizziness Endo: Denies: polyuria or polydipsia PFSH ED PFSH: Medical History Accelerated essential hypertension Anemia Atrial fibrillation CAD (coronary artery disease) CHF (congestive heart failure) Chronic anticoagulation Diabetes mellitus ESRD (end stage renal disease) Heart failure Hypercholesteremia LV dysfunction Myocardial infarct Neuropathy MARAL (obstructive sleep apnea) Pacemaker Pneumonia Renal failure Respiratory failure with hypoxia Restrictive lung disease Small airways disease Surgical History Hemodialysis access, AV graft History of colonoscopy with polypectomy 2020 Peritoneal dialysis status (03/02/21) removed S/P cardiac pacemaker procedure S/P cataract surgery S/P dialysis catheter insertion S/P PTCA (percutaneous transluminal coronary angioplasty) Family History Mother Heart disease Social History Quit status (tobacco): has quit using tobacco Year quit tobacco: 1984 Former quit date comment: 3PPD x 17 Years Second hand smoke exposure: No Smoking risk assessment/counseling performed?: No Alcohol intake: never Counseling given: No Counseling given: No Lives independently: Yes Household members: spouse Housing: House Marital status: service: Yes Current occupational status: retired Pets and animals: No History of recent travel: No Current gender identity: Male Physical Exam Const: COMMON NORMALS: no acute distress GENERAL APPEARANCE: cooperative and comfortable ORIENTATION/CONSCIOUSNESS: Yes awake, Yes oriented to person, Yes oriented to place and Yes oriented to time HENMT: COMMON NORMALS: normocephalic, atraumatic and hearing grossly normal bilaterally HEAD & SCALP: normocephalic and atraumatic Neck/C-Spine: COMMON NORMALS: no JVD Resp: COMMON NORMALS: normal respiratory effort, No retractions, No use of accessory muscles and clear to auscultation bilaterally AUSCULTATION: clear to auscultation bilaterally Cardio: COMMON NORMALS: no JVD, regular rate, regular rhythm and No murmurs present (Cardio) RATE: regular rate RHYTHM: regular rhythm GI: COMMON NORMALS: Soft to palpation and No hepatosplenomegaly present AUSCULTATION: Yes normoactive bowel sounds PALPATION: Yes Soft to palpation, No Tenderness to palpation present (GI), No Guarding due to palpation present (GI) and Yes No hepatosplenomegaly present Extremity: COMMON NORMALS: normal to inspection, capillary refill normal, no clubbing, cyanosis or edema, no calf tenderness and no pedal edema Neuro: SENSORIUM/ORIENTATION: Yes oriented to person, Yes oriented to place and Yes oriented to time Skin: COMMON NORMALS: no rashes or lesions noted GENERAL SKIN EXAM: no rashes or lesions noted Course Vital Signs: Vital signs: Vital Signs Temperature 97.7 F 08/11/21 16:00 Pulse Rate 64 08/11/21 16:00 Respiratory Rate 18 08/11/21 16:00 Blood Pressure 124/72 08/11/21 16:00 Pulse Oximetry 96 08/11/21 16:00 MDM - SOB/Dyspnea MDM Narrative: Medical decision making narrative: Admit for heart failure possible underlying pneumonia antibiotics have been started discussed with hospitalist and with nephrology orders written Lab Data: Labs: Lab Results 08/10/21 08/10/21 08/10/21 09:37 09:37 09:37 WBC 12.3 10^3/uL H 10 ^3/uL (4.0-10.0) RBC 3.67 10^6/uL L 10 ^6/uL (4.1-5.3) Hgb 11.2 g/dL L g/dL (11.7-16.6) Hct 35.4 % L % (42.0-52.0) MCV 96.5 fl H fl (80-94) MCH 30.5 pg pg (28.0-34.0) MCHC 31.6 g/dL g/dL (30.0-36.0) RDW 17.7 % H % (12.1-15.1) Plt Count 265 10^3/cmm 10^3 /cmm (130-400) MPV 9.9 fL fL (7.4-10.4) Neut % (Auto) 77.6 % % Lymph % (Auto) 9.5 % % Braxton % (Auto) 10.9 % % Eos % (Auto) 0.5 % % Baso % (Auto) 0.7 % % Neut # (Auto) 9.52 10^3/uL H 10 ^3/uL (1.8-7.7) Lymph # (Auto) 1.2 10^3/uL 10^3/ uL (0.8-4.8) Braxton # (Auto) 1.3 10^3/uL H 10^ 3/uL (0.2-0.9) Eos # (Auto) 0.1 10^3/uL 10^3/ uL (0.0-0.8) Baso # (Auto) 0.1 10^3/uL 10^3/ uL (0.0-0.1) Nucleated RBC % (a uto) 0.2 % % Nucleated RBCs # 0.0 /100WBC /100W BC Specimen Type Sample Site ABG pH ABG pCO2 ABG pO2 ABG HCO3 ABG O2 Saturation ABG Base Excess Carlito Test A-a O2 Gradient Hematocrit Hgb O2 Saturation Carboxyhemoglobin Methemoglobin Total Hemoglobin Ionized Calcium O2 Delivery Device O2 Liters/Min Waterworks Chief Engineer ID Sodium 142 mmol/L mmol/L (136-145) Potassium 4.1 mmol/L mmol/L (3.5-5.1) Chloride 97 mmol/L L mmol/ L (98-107) Carbon Dioxide 28 mmol/L mmol/L (22-29) Anion Gap 21.1 H (5-19) BUN 27 mg/dL H mg/dL (8-23) Creatinine 2.7 mg/dL H mg/dL (0.7-1.2) GFR Calculation Not Reportable Glucose 135 mg/dL H mg/dL (65-115) Calculated Osmolal ity 301 mOsm/kg H mOs m/kg (285-295) Lactic Acid 3.6 mmol/L H mmol /L (0.5-2.2) Lactic Acid (Sepsi s) Calcium 8.9 mg/dL mg/dL (8.5-10.5) Magnesium 1.9 mg/dL mg/dL (1.7-2.3) Total Bilirubin 0.6 mg/dL mg/dL (0.15-1.2) AST 17 U/L U/L (0-40) ALT 17 U/L U/L (0-41) Alkaline Phosphata se 90 IU/L IU/L (40-130) Creatine Kinase 170 U/L U/L (39-308) Troponin T Baselin e Troponin T 120 Min [place] Troponin T C-Reactive Protein NT-Pro-B Natriuret Pep 20773 pg/mL H pg/ mL (0-125) Total Protein 7.8 g/dL g/dL (6.6-8.7) Albumin 4.3 g/dL g/dL (3.5-5.2) Globulin 3.5 g/dL g/dL (1.3-4.6) Procalcitonin Nasal/Oral COVID-1 9 PCR Hep Bs Antigen Hep Bs Antibody Hepatitis C Antibo dy SARS-CoV-2 Ag (Rap id) 08/10/21 08/10/21 08/10/21 10:12 10:12 10:12 WBC RBC Hgb Hct MCV MCH MCHC RDW Plt Count MPV Neut % (Auto) Lymph % (Auto) Braxton % (Auto) Eos % (Auto) Baso % (Auto) Neut # (Auto) Lymph # (Auto) Braxton # (Auto) Eos # (Auto) Baso # (Auto) Nucleated RBC % (a uto) Nucleated RBCs # Specimen Type Sample Site ABG pH ABG pCO2 ABG pO2 ABG HCO3 ABG O2 Saturation ABG Base Excess Carlito Test A-a O2 Gradient Hematocrit Hgb O2 Saturation Carboxyhemoglobin Methemoglobin Total Hemoglobin Ionized Calcium O2 Delivery Device O2 Liters/Min Waterworks Chief Engineer ID Sodium Potassium Chloride Carbon Dioxide Anion Gap BUN Creatinine GFR Calculation Glucose Calculated Osmolal ity Lactic Acid Lactic Acid (Sepsi s) Calcium Magnesium Total Bilirubin AST ALT Alkaline Phosphata se Creatine Kinase Troponin T Baselin e 89 ng/L H ng/L (0-15) Troponin T 120 Min [place] Delta Troponin T C-Reactive Protein 26.1 mg/L H mg/L (0.0-4.9) NT-Pro-B Natriuret Pep Total Protein Albumin Globulin Procalcitonin 0.10 ng/mL ng/mL (0-0.5) Nasal/Oral COVID-1 9 PCR Hep Bs Antigen Non-reactive (Nonreactive) Hep Bs Antibody 26.0 (11.5-1000) Hepatitis C Antibo dy Non-reactive (Nonreactive) SARS-CoV-2 Ag (Rap id) 08/10/21 08/10/21 08/10/21 12:10 12:20 12:20 WBC RBC Hgb Hct MCV MCH MCHC RDW Plt Count MPV Neut % (Auto) Lymph % (Auto) Braxton % (Auto) Eos % (Auto) Baso % (Auto) Neut # (Auto) Lymph # (Auto) Braxton # (Auto) Eos # (Auto) Baso # (Auto) Nucleated RBC % (a uto) Nucleated RBCs # Specimen Type Arterial Sample Site Radial, left ABG pH 7.54 H (7.35-7.45) ABG pCO2 41.5 mmHg mmHg (35-45) ABG pO2 68.0 mmHg L mmHg (80.0-100.0) ABG HCO3 35.2 mmol/L H mmo l/L (22-26) ABG O2 Saturation 93.9 ABG Base Excess 11.5 mmol/L H mmo l/L (-2.0-2.0) Carlito Test Pos A-a O2 Gradient 4.0 mmHg L mmHg (5-10) Hematocrit 35.0 % L % (42-52) Hgb O2 Saturation 92.3 % L % (95-100) Carboxyhemoglobin 0.9 %THgb %THgb (0.4-20.1) Methemoglobin 0.8 % % (0.4-1.5) Total Hemoglobin 11.4 g/dL L g/dL (14-18) Ionized Calcium 1.1 mmol/L mmol/L (1.1-1.4) O2 Delivery Device Nrb O2 Liters/Min 15.0 % % Waterworks Chief Engineer ID Cak Sodium 143.0 mmol/L mmol /L (131-143) Potassium 4.1 mmol/L mmol/L (3.5-5.0) Chloride Carbon Dioxide Anion Gap BUN Creatinine GFR Calculation Glucose 118.0 mg/dL H mg/ dL (70-115) Calculated Osmolal ity Lactic Acid Lactic Acid (Sepsi s) 2.4 mmol/L H mmol /L (0.5-2.2) Calcium Magnesium Total Bilirubin AST ALT Alkaline Phosphata se Creatine Kinase Troponin T Baselin e Troponin T 120 Min [place] 91.60 ng/L H ng/L (0-15) Delta Troponin T 2.60 ABS# ABS# (0-10) C-Reactive Protein NT-Pro-B Natriuret Pep Total Protein Albumin Globulin Procalcitonin Nasal/Oral COVID-1 9 PCR Hep Bs Antigen Hep Bs Antibody Hepatitis C Antibo dy SARS-CoV-2 Ag (Rap id) 08/10/21 08/10/21 12:28 12:28 WBC RBC Hgb Hct MCV MCH MCHC RDW Plt Count MPV Neut % (Auto) Lymph % (Auto) Braxton % (Auto) Eos % (Auto) Baso % (Auto) Neut # (Auto) Lymph # (Auto) Braxton # (Auto) Eos # (Auto) Baso # (Auto) Nucleated RBC % (a uto) Nucleated RBCs # Specimen Type Sample Site ABG pH ABG pCO2 ABG pO2 ABG HCO3 ABG O2 Saturation ABG Base Excess Carlito Test A-a O2 Gradient Hematocrit Hgb O2 Saturation Carboxyhemoglobin Methemoglobin Total Hemoglobin Ionized Calcium O2 Delivery Device O2 Liters/Min Waterworks Chief Engineer ID Sodium Potassium Chloride Carbon Dioxide Anion Gap BUN Creatinine GFR Calculation Glucose Calculated Osmolal ity Lactic Acid Lactic Acid (Sepsi s) Calcium Magnesium Total Bilirubin AST ALT Alkaline Phosphata se Creatine Kinase Troponin T Baselin e Troponin T 120 Min [place] Troponin T C-Reactive Protein NT-Pro-B Natriuret Pep Total Protein Albumin Globulin Procalcitonin Nasal/Oral COVID-1 9 PCR Not detected Hep Bs Antigen Hep Bs Antibody Hepatitis C Antibo dy SARS-CoV-2 Ag (Rap id) Negative (Negative) Discharge Plan Discharge Patient Disposition: Admitted As Inpatient Admit Provider: Ron Piña Clinical Impression: Congestive heart failure, CAD (coronary artery disease), Diabetes mellitus, Restrictive lung disease, Atrial fibrillation, End-stage renal disease (ESRD) Condition: Stable Coding Level of Care Code ED Master Rigger for Aurelia Chaudhari
[2021-08-10 10:53] LABS: Troponin(5th) Baseline 89 ng/L (0-15)
[2021-08-10 11:43] LABS: C Reactive Protein 26.1 mg/L (0.0-4.9)
[2021-08-10 11:45] LABS: Reflex Lactate Order REFLEX LACTIC ORDERD
--- NOTE | 2021-08-10 11:45 | ECG_ITS ---
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 Measurements Intervals [place] Rate: 60 P: [place]: QRS: -73 QRSD: 224 T: 107 QT: 575 QTc: 577 Interpretive Statements ELECTRONIC VENTRICULAR PACEMAKER PROLONGED QT INTERVAL Compared to ECG 08/10/2021 09:32:06 Prolonged QT interval now present Electronically Signed On 08-11-2021 18:02:26 BEEF SPECIALIST by Anne Mendoza M.D. [email or web address] Medical [email or web address] specialty hospitalRapid RMSlakehealth beachwood medical centerGameFly/store/OM/[id number]
[2021-08-10 12:21] LABS: ABG PCO2 41.5 mmHg (35-45); ABG PH Result 7.54 (7.35-7.45); Base Excess ABG 11.5 mmol/L (-2.0-2.0); Blood Gas Allen Test Pos; Blood Gas Operator Identificat CAK; Blood Gas Sample Site Radial, left; Blood Gas Sample Type Arterial; Carboxyhemoglobin 0.9 %THgb (0.4-20.1); HCO3 ABG 35.2 mmol/L (22-26); HGB O2 Sat 92.3 % (95-100); Ionized Calcium Level - ABG 1.1 mmol/L (1.1-1.4); Methemoglobin 0.8 % (0.4-1.5); Oxygen Device NRB; Oxygen Saturation ABG 93.9; Potassium Level - ABG 4.1 mmol/L (3.5-5.0); Total Hemoglobin 11.4 g/dL (14-18)
--- NOTE | 2021-08-10 12:44 | P.CONIM_ITS ---
Providers/Reason For Consult Consulting Physician/Specialty*: eugenia jurado md/ telenephrology Reason for Consult*: ESRD care and SOB Requesting Physician: Dr. Yaya Piña Primary Care Provider: Adria Artis DO History of Present Illness History of Present Illness Shon Mullen is a 76 year old male Pt sent from dialysis clinic this morning for SOB and hypoxemia- even after dialysis . Renal called to provide ESRD care, as pt is hypoxic on NRB mask. Pt has h/o morbid obesity, DM w/ aneta, CAD, a fib EF 38%, Moderate , s/p PPM, moderate MR, restrictive lung disease. pt had recent cardiac cath which was consistent with no significant disease in the left main circumflex and LAD. RCA was noted to have proximal mid and distal significant stenosis. Due to technical error in the Health And Wellness Manager and nonavailability of surgical backup we decided not to attempt RCA for which he will be brought back for staged PCI. Review of Systems General: Reports: 10 or more systems reviewed and unremarkable except in HPI and below Narrative: sob, weak, orthopnea, COBIAN, anxious, cough. no cp Meds/Allergies Home Medications and Allergies Home Medications Medication Instructions Recorded Confirmed Last Taken Type atorvastatin 80 mg tablet 80 mg PO DAILY@1800 10/02/19 07/30/21 07/12/21 History cetirizine 10 mg capsule 10 mg PO DAILY@10/02/19 07/30/21 07/12/21 History nifedipine 60 mg tablet,extended 60 mg PO DAILY@10/02/19 07/30/21 07/12/21 History release nitroglycerin 0.4 mg sublingual 0.4 mg SUBLINGUAL Q5M PRN 10/02/19 07/30/21 09/18/20 History tablet epoetin beta, methoxy peg 30 60 mcg SUBCUT Q14D ml 11/07/19 07/30/21 07/03/21 History mcg/0.3 mL injection syringe gabapentin 300 mg capsule 300 mg PO BID@ cap 11/07/19 07/30/21 07/12/21 History sevelamer carbonate 800 mg tablet 2,400 mg PO TID@,, tab 11/07/19 07/30/21 07/12/21 History famotidine 20 mg tablet 20 mg PO BID@04/16/20 07/30/2131/21 History liraglutide (weight loss) 3 mg/0.5 3 mg SUBCUT DAILY PRN 04/16/20 07/30/21 01/31/21 History mL (18 mg/3 mL) subcut pen injector omega-3 fatty acids 1,000 mg 1,000 mg PO BID@18 cap 04/16/20 07/30/21 07/12/21 History capsule spironolactone 25 mg tablet 25 mg PO DAILY@07/24/20 07/30/21 07/12/21 History docusate sodium 200 mg PO BID@09/17/20 07/30/21 07/12/21 History allopurinol 100 mg PO DAILY PRN 11/11/20 07/30/21 01/31/21 History oxycodone-acetaminophen 1 tab PO BID PRN 11/11/20 07/30/21 03/01/21 History polyethylene glycol 3350 [Miralax] 17 g PO DAILY PRN 11/11/20 07/30/21 03/01/21 History albuterol sulfate 90 mcg/actuation 2 puff INHALATION Q6H PRN 30 Days 01/02/21 07/30/21 02/23/21 Rx aerosol inhaler #8.5 g B complex-vitamin C-folic acid 1 tab PO DAILY@09 07/13/21 07/30/21 07/12/21 History Lantus U-100 Insulin 50 unit SUBCUT QAM 07/13/21 07/30/21 07/12/21 History Stiolto Respimat 2 puff INHALATION QAM 07/13/21 07/30/21 07/12/21 History albuterol sulfate 2.5 mg INHALATION Q6H PRN 07/13/21 07/30/21 Unknown History cholecalciferol (vitamin D3) 50,000 unit PO Q7D 07/13/21 07/30/21 07/12/21 History cinacalcet 30 mg PO .THREE TIMES A WEEK 07/13/21 07/30/21 Unknown History gentamicin 1 applic TOPICAL TID PRN 07/13/21 07/30/21 Unknown History lidocaine-prilocaine 1 applic TOPICAL TID PRN 07/13/21 07/30/21 Unknown History Adult Low Dose Aspirin 81 mg PO DAILY@09 #30 tab 07/18/21 07/30/21 07/12/21 Rx Eliquis 5 mg PO BID@ 30 Days #60 tab 07/18/21 07/30/21 07/12/21 Rx furosemide [Lasix] 80 mg PO DAILY #10 tab 07/18/21 07/30/21 Unknown Rx isosorbide mononitrate 30 mg 15 mg PO BID #90 tab 08/05/21 Unknown Rx tablet,extended release 24 hr Allergies Allergy/AdvReac Type Severity Reaction Status Date / Time ciprofloxacin [From Cipro] Allergy rash Verified 08/10/21 09:30 felodipine Allergy rash Verified 08/10/21 09:30 sulfamethoxazole Allergy rash Verified 08/10/21 09:30 [From Septra] trimethoprim [From Septra] Allergy rash Verified 08/10/21 09:30 PFSH Acute PFSH: Medical History (Updated 07/30/21 @ 09:35 by SARAI Chatman) Accelerated essential hypertension Anemia Atrial fibrillation CAD (coronary artery disease) CHF (congestive heart failure) Chronic anticoagulation Diabetes mellitus ESRD (end stage renal disease) Heart failure Hypercholesteremia LV dysfunction Myocardial infarct Neuropathy MARAL (obstructive sleep apnea) Pacemaker Pneumonia Renal failure Respiratory failure with hypoxia Restrictive lung disease Small airways disease Surgical History Hemodialysis access, AV graft History of colonoscopy with polypectomy 2020 Peritoneal dialysis status (03/02/21) removed S/P cardiac pacemaker procedure S/P cataract surgery S/P dialysis catheter insertion S/P PTCA (percutaneous transluminal coronary angioplasty) Family History Mother Heart disease Social History Quit status (tobacco): has quit using tobacco Year quit tobacco: 1984 Former quit date comment: 3PPD x 17 Years Second hand smoke exposure: No Smoking risk assessment/counseling performed?: No Alcohol intake: never Counseling given: No Counseling given: No Lives independently: Yes Household members: spouse Housing: House Marital status: service: Yes Current occupational status: retired Pets and animals: No History of recent travel: No Current gender identity: Male Vitals/I&O/Wt Last Vital Signs Temp 98.2 F 08/10/21 09:30 Pulse 60 08/10/21 10:10 Resp 24 H 08/10/21 10:10 BP 141/73 08/10/21 10:10 Pulse Ox 99 08/10/21 10:10 Weight last 48 hrs Weight 125.6 kg Physical Exam Narrative: EXAM NARRATIVE: elderly man sob on nrb o2 vs noted heent- nc/at, eomi, anicteric neck supple lungs crackles and ronchi b/l heart- irreg, +BOBBY abd soft, nt, ND +bs ext- no edema RUE AVG w/ thrill and bruit neuro- a,a, o x 3 pulses poor Data Micro: Micro: Microbiology 08/10/21 12:26 Blood Culture - Pr eliminary Blood SPECIMEN [facility] ALICJA 08/10/21 12:20 Blood Culture - Pr eliminary Blood SPECIMEN [facility] A&P Additional A&P Information 76 yr old man 1. ESRD- [place]- [place] [id number], cxr appears like CHF- attempt to dec EDW w/ HD -known RCA lesion - for cath and stent in august 2021 known pleural effusions -discussed w/ Dr. Piña- will dialyze/ SUF now for 2.5 hrs- 3 k bath- remove 3l 2. SOB, volume overload, Moderate MR, moderate - per Cardiology and Medicine 3.hgb okay for ESRD 4. met alkalosis from AM dialysis 5. renal bone mineral metabolism- replete vit d, pth noted- zemplar as outpt -monitor ca, phos 6. restrictive lung disease- known to Dr. Adan 7. DM care per PMD 8. monitor bp seen and examined w/ RN- telehealth visit discussed w/ Dr. Marium Piña- time spent 55 minutes Consult Attestations Medical Necessity Statement: sob, esrd, acute on chronic CHF-systolic, esrd Time Spent in Patient Care: Greater than 35 minutes (>than 50% of time spent in counselling and/or direct pt care on unit) . Coding Level of Care Code Acute Call Center Team Leader for Joceg Watson
[2021-08-10] MEDS: piperacillin-tazobactam 3.375 GM in sodium chloride 0.9% (plus) 50 ML IV (13:02)
[2021-08-10] MEDS: vancomycin 1,000 MG in sodium chloride 0.9% 250 ML 250 MG IV (13:07)
[2021-08-10 13:09] LABS: Lactic Acid level (Lactate) 2.4 mmol/L (0.5-2.2)
--- NOTE | 2021-08-10 13:22 | CT_ITS ---
WS: [id number] CT CHEST TECHNIQUE: Noncontrast CT of the chest with coronal and sagittal reformatted images. CLINICAL INFORMATION: dyspnea, history of effusion COMPARISON: CT January 01, 2021 DLP: 1021.[address] scans at [facility] use at least one of these dose optimization techniques: automated e xposure control; mA and/or kV adjustment per patient size (includes targeted exams where dose is matc hed to clinical indication); or iterative reconstruction. FINDINGS: Moderate right pleural effusion unchanged since January 01, 2021. Compressive atelectasis right lower l obe. Patchy infiltrates in the left greater than right lower lobes. Recommend correlation for pneumon ia. Upper lobes are better aerated. Cardiomegaly. Dense vascular calcification. Normal caliber thoracic aorta. Coronary calcification. Ca lcified mediastinal and hilar lymph nodes. No mediastinal or hilar lymphadenopathy. Small esophageal hiatal hernia. Incidental left adrenal adenoma measuring 15 mm. Right adrenal gland is normal. Tiny gallstones in the gallbladder. No axillary lymphadenopathy. Mild thoracic kyphosis. CT/CT chest wo con [id number] IMPRESSION: 1. Moderate right pleural effusion with compressive atelectasis right lower lo be unchanged since January 01, 2021. 2. Patchy infiltrates in the left greater than right lower lobes. Recommend co rrelation for pneumonia. 3. Cardiomegaly with coronary calcification. Dense vascular calcification. 4. Tiny calculi in the gallbladder.
[2021-08-10 13:23] LABS: SARS Covid-2 Antigen Negative (Negative)
--- NOTE | 2021-08-10 13:23 | P.HP_ITS ---
Providers/Chief Complaint Primary Care Provider: Adria Artis DO Chief Complaint: SOB History of Present Illness Shon Mullen is a 76 year old male the hospital with complaints of shortness of breath since Tuesday. He reports this is similar to his presentation in the past. He denies any chest discomfort. He has not had a fever. He will occasionally cough. Last hospital stay he had an angiogram for which a scheduled angiogram is anticipated early next month. This is to try to increase flow in the patient's right coronary artery which was 75 to 80% closed at last angiogram. He is also shown decreasing ejection fraction with his last EF around 38% July 13 with moderate aortic valve stenosis moderate mitral regurg itation and global hypokinesis. He reports his dialysis has been going well. They have been taking off quite a bit of fluid and today took over 3 L off. He reports when they took the fluid off he did not feel significantly better. He is vaccinated for Covid. Other confounding issues were right pleural effusion, that has been present since December attributed to his heart failure. He also has restrictive lung disease/small airway disease for which she is chronically on 4 L of oxygen. He has not missed any dialysis recently, and according to family is down to his dry weight. 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 According to this was diagnosed through blood test. Review of Systems General: Reports: 10 or more systems reviewed and unremarkable except in HPI and below Const: Denies: fever(s) or chills Eyes: Denies: change in vision ENMT: Denies: throat pain Card: Denies: chest pain Resp: Reports: dyspnea GI: Denies: abdominal pain, nausea or vomiting : Denies: flank pain Musc: Denies: neck pain Skin/Breast: Denies: rash Neuro: Denies: headache(s) Psych: Denies: anxiety or depression Endo: Denies: polyuria Nas/Lymph: Denies: easy bruising All/Imm: Denies: urticaria Medications/Allergies Home Medications Medication Instructions Recorded Confirmed Last Taken Type atorvastatin 80 mg tablet 80 mg PO DAILY@1800 10/02/19 08/10/21 08/09/21 History cetirizine 10 mg capsule 10 mg PO DAILY@09 10/02/19 08/10/21 08/09/21 History nifedipine 60 mg tablet,extended 60 mg PO DAILY@10/02/19 08/10/21 08/09/21 History release nitroglycerin 0.4 mg sublingual 0.4 mg SUBLINGUAL Q5M PRN 10/02/19 08/10/21 09/18/20 History tablet epoetin beta, methoxy peg 30 60 mcg SUBCUT Q14D ml 11/07/19 08/10/21 07/03/21 History mcg/0.3 mL injection syringe gabapentin 300 mg capsule 300 mg PO BID@ cap 11/07/19 08/10/21 08/09/21 History sevelamer carbonate 800 mg tablet 2,400 mg PO TID@,, tab 11/07/19 1 10/10/20 08/09/21 History famotidine 20 mg tablet 20 mg PO BID@,04/16/20 08/10/21 08/09/21 History liraglutide (weight loss) 3 mg/0.5 3 mg SUBCUT DAILY PRN 04/16/20 08/10/21 01/31/21 History mL (18 mg/3 mL) subcut pen injector omega-3 fatty acids 1,000 mg 1,000 mg PO BID@ cap 04/16/20 08/10/21 08/09/21 History capsule spironolactone 25 mg tablet 25 mg PO DAILY@07/24/20 08/10/21 08/09/21 History docusate sodium 200 mg PO BID@,09/17/20 08/10/21 08/09/21 History allopurinol 100 mg PO DAILY PRN 11/11/20 08/10/21 01/31/21 History oxycodone-acetaminophen 1 tab PO BID PRN 11/11/20 08/10/21 03/01/21 History polyethylene glycol 3350 [Miralax] 17 g PO DAILY PRN 11/11/20 08/10/21 03/01/21 History albuterol sulfate 90 mcg/actuation 2 puff INHALATION Q6H PRN 30 Days 01/02/21 08/10/21 02/23/21 Rx aerosol inhaler #8.5 g B complex-vitamin C-folic acid 1 tab PO DAILY@07/13/21 08/10/21 08/09/21 History Lantus U-100 Insulin 50 unit SUBCUT QAM 07/13/21 08/10/21 08/09/21 History Stiolto Respimat 2 puff INHALATION QAM 07/13/21 08/10/21 08/09/21 History albuterol sulfate 2.5 mg INHALATION Q6H PRN 07/13/21 08/10/21 Unknown History cholecalciferol (vitamin D3) 50,000 unit PO Q7D 07/13/21 08/10/21 08/09/21 History cinacalcet 30 mg PO .THREE TIMES A WEEK 07/13/21 08/10/21 Unknown History gentamicin 1 applic TOPICAL TID PRN 07/13/21 08/10/21 Unknown History lidocaine-prilocaine 1 applic TOPICAL TID PRN 07/13/21 08/10/21 Unknown History Eliquis 5 mg PO BID@09,18 30 Days #60 tab 07/18/21 08/10/21 08/09/21 Rx aspirin [Adult Low Dose Aspirin] 81 mg PO DAILY@09 #30 tab 07/18/21 08/10/21 08/09/21 Rx isosorbide mononitrate 30 mg 15 mg PO BID #90 tab 08/05/21 08/10/21 08/09/21 Rx tablet,extended release 24 hr furosemide [Lasix] 80 mg PO DAILY PRN 08/10/21 08/10/21 Unknown History methylprednisolone See Rx Instructions .ROUTE .COMPLEX 08/10/21 08/10/21 Unknown History Allergies Allergy/AdvReac Type Severity Reaction Status Date / Time ciprofloxacin [From Cipro] Allergy rash Verified 08/10/21 09:30 felodipine Allergy rash Verified 08/10/21 09:30 sulfamethoxazole Allergy rash Verified 08/10/21 09:30 [From Septra] trimethoprim [From Septra] Allergy rash Verified 08/10/21 09:30 PFSH Acute PFSH: Medical History Accelerated essential hypertension Anemia Atrial fibrillation CAD (coronary artery disease) CHF (congestive heart failure) Chronic anticoagulation Diabetes mellitus ESRD (end stage renal disease) Heart failure Hypercholesteremia LV dysfunction Myocardial infarct Neuropathy MARAL (obstructive sleep apnea) Pacemaker Pneumonia Renal failure Respiratory failure with hypoxia Restrictive lung disease Small airways disease Surgical History Hemodialysis access, AV graft History of colonoscopy with polypectomy 2020 Peritoneal dialysis status (03/02/21) removed S/P cardiac pacemaker procedure S/P cataract surgery S/P dialysis catheter insertion S/P PTCA (percutaneous transluminal coronary angioplasty) Family History Mother Heart disease Social History Quit status (tobacco): has quit using tobacco Year quit tobacco: 1984 Former quit date comment: 3PPD x 17 Years Second hand smoke exposure: No Smoking risk assessment/counseling performed?: No Alcohol intake: never Counseling given: No Counseling given: No Lives independently: Yes Household members: spouse Housing: House Marital status: service: Yes Current occupational status: retired Pets and animals: No History of recent travel: No Current gender identity: Male Vitals/I&O/Wt Last Vital Signs Temp 98.2 F 08/10/21 09:30 Pulse 61 08/10/21 13:11 Resp 24 H 08/10/21 13:11 BP 141/73 08/10/21 10:10 Pulse Ox 95 08/10/21 13:11 Weight last 48 hrs Weight 125.6 kg Physical Exam Narrative: EXAM NARRATIVE: General exam is a white male, with mild to moderate tachypnea and accessory muscle use, on 7 L per facemask. HEENT: Pupils equally round. Oropharynx clear. Neck is supple no lymphadenopathy or thyromegaly Cardiovascular regular rate and rhythm with a 2/6 systolic murmur Lungs diminished breath sounds at the bases but no crackles. No wheezing Abdomen is soft with positive bowel sounds. Obese. No obvious organomegaly. exam is deferred Extremities no cyanosis clubbing. Trace edema is present. Cap refill brisk. Skin no rash Neuro no focal deficits. Data : 08/10/21 09:37 08/10/21 09:37 Micro: Microbiology 08/10/21 12:26 Blood Culture - Preliminary Blood SPECIMEN COLLECTED 08/10/21 12:20 Blood Culture - Preliminary Blood SPECIMEN COLLECTED Other data: AG demonstrated a pH 7.54, PCO2 41, PO2 of 68 BNP is 26,830 CRP 26 Troponin 89 and repeat 91 Lactic acid 3.6 with repeat 2.4 Procalcitonin level normal Covid rapid negative and PCR pending Chest x-ray demonstrates pacemaker, cardiomegaly, pulmonary congestion, fluid right fissure CT chest patchy infiltrates lower lobes, moderate right pleural effusion without change from December 2020 EKG demonstrates ventricular pacemaker. A&P Assessment and plan (1) Shortness of Breath: Patient reports this started on Tuesday. He reports that this is similar to how he presented last hospital stay. There is concerned this represents pulmonary edema, which was a similar concern earlier this month during admission. He has history of recent decrease in his EF. An angiogram is planned early next month for intervention of his RCA which is known to be stenosed and right dominant. He also has a history of moderate right plerual effusion thought to be related to heart failure and small airway disease followed by pulmonary. Continue oxygen as needed Cardiology consultation CT chest demonstrates moderate pleural effusion, unchanged. Consistent with acute hypoxic respiratory failure secondary to work of breathing, oxygen need of 7 L which is significantly more than his baseline. No clinical evidence of pneumonia with normal procalcitonin, no history of fever or significant cough. I do not see a reason to continue antibiotics at this time. Status: Acute (2) CAD (coronary artery disease): Known RCA disease, right dominant system. Cardiology consultation as patient has planned intervention early next month for this Status: Acute Qualifiers: Associated angina: without angina Coronary Disease-Associated Artery/Lesion type: [place] artery [place] vs. transplanted heart: [place] heart Qualified Code(s): I25.10 - Atherosclerotic heart disease of [place] coronary ar andr[place] without angina pectoris (3) Renal failure: Nephrology consultation Appreciate extra dialysis run today Status: Acute Qualifiers: Chronic kidney disease stage: on chronic dialysis Renal failure chronicity: chronic Qualified Code(s): N18.6 - End stage renal disease; Z99.2 - Dependence on renal dialysis (4) Restrictive lung disease: DuoNeb every 6 hours No evidence of exacerbation currently Status: Acute (5) Diabetes mellitus: Sliding scale insulin Status: Acute (6) Atrial fibrillation: Currently with paced rhythm. Status: Acute Additional A&P Information Multiple other medical problems as outlined in past medical history. Full code On Eliquis prior to admission for anticoagulation. Hold and use heparin subcutaneous currently secondary to possibility of procedure. Attestations Medical Necessity Statement*: Will require greater than 2 midnight stay for evaluation of dyspnea/acute respiratory failure Time Spent in Patient Care: Greater than 35 minutes Coding Level of Care Code Acute Communications Billing Analyst for Chg Fwd Diagnoses Shortness of Breath R06.02 CAD (coronary artery disease) I25.10 Associated angina: without angina Coronary Disease-Associated Artery/Lesion type: [place] artery [place] vs. transplanted heart: [place] heart Renal failure N18.6; Z99.2 Chronic kidney disease stage: on chronic dialysis Renal failure chronicity: chronic Restrictive lung disease J98.4 Diabetes mellitus E11.9 Atrial fibrillation I48.91
--- NOTE | 2021-08-10 14:49 | PC.PHAR ---
pts verified the pts medications-va also faxed over med list
--- NOTE | 2021-08-10 15:45 | ECG_ITS ---
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 Measurements Intervals [place] Rate: 63 P: 167 ID: [id number] QRS: -73 QRSD: 231 T: 79 QT: 575 QTc: 589 Interpretive Statements ELECTRONIC VENTRICULAR PACEMAKER PROLONGED QT INTERVAL CRITICAL TEST RESULT Compared to ECG 08/10/2021 13:05:03 No significant changes Electronically Signed On 08-11-2021 18:01:53 CULTURAL HISTORIAN by Anne Mendoza M.D. [id number]
--- NOTE | 2021-08-10 17:43 | PM.CONSULT ---
Providers/Reason For Consult Consulting Physician/Specialty*: Dr. Mendoza, cardiology Reason for Consult*: Coronary artery disease Primary Care Provider: Adria Artis DO History of Present Illness History of Present Illness Shon Mullen is a 76 year old male with past medical history of end-stage renal disease on hemodialysis, coronary artery disease, restrictive lung disease on 4 L of oxygen at home, heart failure with reduced ejection fraction (LVEF 38% <--55%) on recent echo and former smoker. He was recently hospitalized after cardiac catheterization and discharged on 18 July 2021 with plan to do outpatient coronary angiogram with staged PCI. He came in with worsening SOB that started per patient on Tuesday.His oxygen saturation kept dropping with ambulation. He came for his usual dialysis session on Tuesday but even after dialysis with oxygen saturation kept dropping in 80's inspite of 5 L of O2 and he was sent to ER for further evaluation. He denies any chest pain, worsening edema or orthopnea. He underwent additional dialysis session earlier today. Review of Systems General: Reports: 10 or more systems reviewed and unremarkable except in HPI and below Const: Denies: fever(s) or chills Eyes: Denies: change in vision ENMT: Denies: epistaxis Card: Denies: chest pain Resp: Reports: dyspnea GI: Denies: abdominal pain, nausea, vomiting or hematochezia : Denies: flank pain or hematuria Skin/Breast: Denies: rash Neuro: Denies: headache(s) Psych: Denies: anxiety or depression Endo: Denies: polyuria Nas/Lymph: Denies: easy bruising Meds/Allergies Home Medications and Allergies Home Medications Medication Instructions Recorded Confirmed Last Taken Type atorvastatin 80 mg tablet 80 mg PO DAILY@1800 10/02/19 08/10/21 08/09/21 History cetirizine 10 mg capsule 10 mg PO DAILY@10/02/19 08/10/21 08/09/21 History nifedipine 60 mg tablet,extended 60 mg PO DAILY@10/02/19 08/10/21 08/09/21 History release nitroglycerin 0.4 mg sublingual 0.4 mg SUBLINGUAL Q5M PRN 10/02/19 08/10/21 09/18/20 History tablet epoetin beta, methoxy peg 30 60 mcg SUBCUT Q14D ml 11/07/19 08/10/2107/03/21 History mcg/0.3 mL injection syringe gabapentin 300 mg capsule 300 mg PO BID@ cap 11/07/19 08/10/21 08/09/21 History sevelamer carbonate 800 mg tablet 2,400 mg PO TID@,, tab 11/07/19 08/10/21 08/09/21 History famotidine 20 mg tablet 20 mg PO BID@04/16/20 08/10/21 08/09/21 History liraglutide (weight loss) 3 mg/0.5 3 mg SUBCUT DAILY PRN 04/16/20 08/10/21 01/31/21 History mL (18 mg/3 mL) subcut pen injector omega-3 fatty acids 1,000 mg 1,000 mg PO BID@ cap 04/16/20 08/10/21 08/09/21 History capsule spironolactone 25 mg tablet 25 mg PO DAILY@07/24/20 08/10/21 08/09/21 History docusate sodium 200 mg PO BID@,09/17/20 08/10/21 08/09/21 History allopurinol 100 mg PO DAILY PRN 11/11/20 08/10/21 01/31/21 History oxycodone-acetaminophen 1 tab PO BID PRN 11/11/20 08/10/21 03/01/21 History polyethylene glycol 3350 [Miralax] 17 g PO DAILY PRN 11/11/20 08/10/21 03/01/21 History albuterol sulfate 90 mcg/actuation 2 puff INHALATION Q6H PRN 30 Days 01/02/21 08/10/21 02/23/21 Rx aerosol inhaler #8.5 g B complex-vitamin C-folic acid 1 tab PO DAILY@07/13/21 08/10/21 08/09/21 History Lantus U-100 Insulin 50 unit SUBCUT QAM 07/13/21 08/10/21 08/09/21 History Stiolto Respimat 2 puff INHALATION QAM 07/13/21 08/10/21 08/09/21 History albuterol sulfate 2.5 mg INHALATION Q6H PRN 07/13/21 08/10/21 Unknown History cholecalciferol (vitamin D3) 50,000 unit PO Q7D 07/13/21 08/10/21 08/09/21 History cinacalcet 30 mg PO .THREE TIMES A WEEK 07/13/21 08/10/21 Unknown History gentamicin 1 applic TOPICAL TID PRN 07/13/21 08/10/21 Unknown History lidocaine-prilocaine 1 applic TOPICAL TID PRN 07/13/21 08/10/21 Unknown History Eliquis 5 mg PO BID@,18 30 Days #60 tab 07/18/21 08/10/21 08/09/21 Rx aspirin [Adult Low Dose Aspirin] 81 mg PO DAILY@09 #30 tab 07/18/21 08/10/21 08/09/21 Rx isosorbide mononitrate 30 mg 15 mg PO BID #90 tab 08/05/21 08/10/21 08/09/21 Rx tablet,extended release 24 hr furosemide [Lasix] 80 mg PO DAILY PRN 08/10/21 08/10/21 Unknown History methylprednisolone See Rx Instructions .ROUTE .COMPLEX 08/10/21 08/10/21 Unknown History Allergies Allergy/AdvReac Type Severity Reaction Status Date / Time ciprofloxacin [From Cipro] Allergy rash Verified 08/10/21 09:30 felodipine Allergy rash Verified 08/10/21 09:30 sulfamethoxazole Allergy rash Verified 08/10/21 09:30 [From Septra] trimethoprim [From Septra] Allergy rash Verified 08/10/21 09:30 PFSH Acute PFSH: Medical History Accelerated essential hypertension Anemia Atrial fibrillation CAD (coronary artery disease) CHF (congestive heart failure) Chronic anticoagulation Diabetes mellitus ESRD (end stage renal disease) Heart failure Hypercholesteremia LV dysfunction Myocardial infarct Neuropathy MARAL (obstructive sleep apnea) Pacemaker Pneumonia Renal failure Respiratory failure with hypoxia Restrictive lung disease Small airways disease Surgical History Hemodialysis access, AV graft History of colonoscopy with polypectomy 2020 Peritoneal dialysis status (03/02/21) removed S/P cardiac pacemaker procedure S/P cataract surgery S/P dialysis catheter insertion S/P PTCA (percutaneous transluminal coronary angioplasty) Family History Mother Heart disease Social History Quit status (tobacco): has quit using tobacco Year quit tobacco: 1984 Former quit date comment: 3PPD x 17 Years Second hand smoke exposure: No Smoking risk assessment/counseling performed?: No Alcohol intake: never Counseling given: No Counseling given: No Lives independently: Yes Household members: spouse Housing: House Marital status: service: Yes Current occupational status: retired Pets and animals: No History of recent travel: No Current gender identity: Male Vitals/I&O/Wt Last Vital Signs Temp 98.2 F 08/10/21 09:30 Pulse 61 08/10/21 13:11 Resp 24 H 08/10/21 13:11 BP 141/73 08/10/21 10:10 Pulse Ox 95 08/10/21 13:11 Weight last 48 hrs Weight 276 lb 14.409 oz Physical Exam Narrative: EXAM NARRATIVE: GENERAL: obese man sitting in bed in no acute distress HEENT:Pupils equal round reactive to light. No pallor or icterus. NECK: No JVD, No carotid bruit. CARDIOVASCULAR SYSTEM: S1-S2 regular. Grade 3/6 systolic apical murmur + RESPIRATORY SYSTEM:Decreased bilateral air entry. Absent at right base. No wheezes rhonchi heard. ABDOMEN: Soft, obese, nontender. Normal bowel sounds present. EXTREMITIES: No edema. No signs of chronic venous insufficiency. EDGE PLUGGER: Patient is alert oriented ?3. No focal neurological deficits. 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 Other Data: Other data: CT chest 10 August 2021 IMPRESSION: 1. Moderate right pleural effusion with compressive atelectasis right lower lobe unchanged since January 01, 2021. 2. Patchy infiltrates in the left greater than right lower lobes. Recommend correlation for pneumonia. 3. Cardiomegaly with coronary calcification. Dense vascular calcification. 4. Tiny calculi in the gallbladder. Coronary angiogram 17 July 2021 Diagnostic Findings * Left Main has no disease. * Left Anterior Descending has no disease. * Proximal Right Coronary Artery: significant 75% stenosis, ARI: 3 flow. * Distal Right Coronary Artery: significant 80% stenosis, ARI: 3 flow. * Distal Right Coronary Artery: significant 80% stenosis, ARI: 3 flow. * Distal Circumflex: luminal irregularities 20% stenosis, ARI: 3 flow. * Posterior Descending Right: severe 90% stenosis, ARI: 3 flow. * Coronary angiography shows right dominance. Conclusions 1. There is severe coronary artery disease with two vessel disease. 2. We tried to attempt for intervention to the RCA however due to poor quality images secondary to Cook Mess setting, we deferred the intervention as I did not have surgical backup at the same time images qualities but not optimal therefore we will bring patient back for PCI to RCA later. Continue optimal medical management. Recommendations * Continue current medical management and risk factor modification. We will load patient with Plavix and bring him back for PCI to RCA over next few days. Echocardiogram 13 July 2021 CONCLUSIONS 1-Severely increased left ventricular cavity size. Severely decreased left ventricular systolic function. Left ventricular ejection fraction is estimated at 38 %. There is global hypokinesis. In the presence of atrial fibrillation diastolic function cannot be assessed accurately. 2-Severe aortic valve calcification. Moderate aortic valve stenosis, mean gradient 5.4 mmHg, KYLIE 1.8 cm squared. Trace to mild aortic valve regurgitation. 3-Moderately thickened mitral valve. No mitral valve stenosis. Moderate mitral valve regurgitation. 4-There is no pericardial effusion. 5-The right ventricle is normal in size and function. RVSP could not be calculated due to incomplete tricuspid regurgitation velocity profile. 6-When compared to the prior echocardiogram dated 22 May 2020 left ventricle function has deteriorated from normal 55% to severely depressed 38% now. There is moderate aortic stenosis now. Mitral valve regurgitation remains at moderate. Echocardiogram 20 May 2020 CONCLUSIONS 1-Moderately increased left ventricular cavity size. Normal left ventricular systolic function. Left ventricular ejection fraction is estimated at 55 %. In the presence of atrial fibrillation diastolic function cannot be assessed accurately. 2-Normal right ventricular size. Catheter/pacemaker wire visualized in the right ventricle. 3-Normal right atrial size. Catheter/pacemaker wire in the right atrial cavity. 4-Mildly thickened mitral valve. No mitral valve stenosis. Moderate mitral valve regurgitation. 5-Moderate aortic valve calcification. No aortic valve stenosis. No aortic valve regurgitation. 6-There is no pericardial effusion. 7-Pulmonary artery systolic pressure is within normal limits. 8-Right atrial pressure is around 5 mm of mercury. 9-When compared to the prior echocardiogram dated 02/12/2019 there is moderate mitral valve regurgitation and pacer wire in the right ventricle cavity present now. Lexiscan sestamibi myocardial perfusion imaging 13 May 2020 IMPRESSIONS Medium-sized area of old myocardial infarction versus scarring noted in basal to distal inferior and inferolateral wall suggestive old myocardial infarction versus scarring without significant ischemia. EKG segment will be documented separately A&P Assessment and plan (1) Shortness of Breath: Acute on chronic respiratory failure -volume management by dialaysis and diuretics (some UO). -Given moderate sized right pleural effusion, may consider thoracentesis prior to any coronary intervention. Status: Acute (2) CAD (coronary artery disease): I will discuss with and potentially proceed with coronary intervention this hospitalization. Status: Acute Qualifiers: Associated angina: without angina Coronary Disease-Associated Artery/Lesion type: [place] artery [place] vs. transplanted heart: nome heart Qualified Code(s): I25.10 - Atherosclerotic heart disease of [place] coronary artery without angina pectoris Additional A&P Information HFrEF s/p PPM Moderate MR Hypertension Restrictive lung disease End-stage renal disease dialysis dependent Diabetes mellitus Pleural effusion Thank you allowing me to participate in patient's care. Please feel free to call with questions or concerns. Consult Attestations Time Spent in Patient Care: 16 - 35 minutes (>than 50% of time spent in counselling and/or direct pt care on unit). Coding Level of Care Code Acute Continuous Improvement [place] for Chg Fwd Diagnoses Shortness of Breath R06.02 CAD (coronary artery disease) I25.10 Associated angina: without angina Coronary Disease-Associated Artery/Lesion type: [place] artery [place] vs. transplanted heart: nome heart
--- NOTE | 2021-08-10 17:52 | PC.HD ---
Isolated ultrafiltration treatment done in ED. Patient recieved his full treatment at the outpatient clinic this morning, 3L removed. Patient appears SOB, no edema, lung sounds coarse but no crackles. UF goal in ED is 2500, however patient began having cramping to BLE appx 1 hour into 2.5 hour treatment with 1100ml removed. UF shut off to allow cramping to subside but when UF back on, cramping immediately returned. Dr. Coley notified with instructions to reduce UF rate, goal 1500ml. Patient tolerated reduced UF rate for appx 30 minutes, total fluid removal 1300, but cramping returned and was not subsiding completely. Dr Coley ntfd and treatment terminated.
[2021-08-10 18:07] LABS: Troponin 5 6HR 91.27 ng/L (0-15); Troponin 5 6HR Delta 2.27 ng/L (0-12)
[2021-08-10] MEDS: atorvastatin 40 mg Tablet 80 MG PO (20:42)
[2021-08-10] MEDS: docusate sodium 100 mg Capsule 200 MG PO (20:42)
[2021-08-10] MEDS: famotidine 20 mg Tablet PO (20:42)
[2021-08-10] MEDS: heparin 5,000 unit/mL INJ 1 mL 5000 UNIT SUBCUT (20:43)
[2021-08-10] MEDS: gabapentin 300 mg Capsule PO (20:43)
[2021-08-10] MEDS: isosorbide mononitrate ER 30 mg Tablet 15 MG PO (20:43)
[2021-08-10 21:34] LABS: Glucose Point of Care 260 mg/dL (70-110)
[2021-08-10] MEDS: insulin lispro 100 unit/1 mL SUBCUT (22:26)
[2021-08-10 22:45] LABS: Hepatitis B Surface Antigen Non-Reactive (Nonreactive); Hepatitis C Virus Antibody Non-Reactive (Nonreactive)
[2021-08-11] VITALS (12 sets, daily range): BP systolic 114–151; BP diastolic 64–80; PULSE 60–86; RESP 16–24; TEMP 36.5–37.2; O2SAT 91–97
[2021-08-11] MEDS: ipratropium-albuterol 3 mL Neb INHALATION ×3 (01:44→21:04)
[2021-08-11 06:08] LABS: Basophils # 0.1 10^3/uL (0.0-0.1); Basophils % 0.6 %; Eosinophils # 0.1 10^3/uL (0.0-0.8); Eosinophils % 0.7 %; Hematocrit 30.1 % (42.0-52.0); Hemoglobin 9.6 g/dL (11.7-16.6); Lymphocytes # 1.3 10^3/uL (0.8-4.8); Lymphocytes % 13.5 %; Mean Corpuscular HGB Conc 31.9 g/dL (30.0-36.0); Mean Corpuscular Hemoglobin 30.8 pg (28.0-34.0); Mean Corpuscular Volume 96.5 fl (80-94); Mean Platelet Volume 10.2 fL (7.4-10.4); Monocytes # 1.3 10^3/uL (0.2-0.9); Monocytes % 13.2 %; Neutrophils # 6.84 10^3/uL (1.8-7.7); Neutrophils % 71.2 %; Nucleated Red Blood Cells % 0 %; Platelet Count 201 10^3/cmm (130-400); Red Blood Count 3.12 10^6/uL (4.1-5.3); Red Cell Distribution Width 17.8 % (12.1-15.1); White Blood Count 9.6 10^3/uL (4.0-10.0)
[2021-08-11] MEDS: heparin 5,000 unit/mL INJ 1 mL 5000 UNIT SUBCUT (06:10)
[2021-08-11 06:29] LABS: Alanine Aminotransferase 13 U/L (0-41); Albumin Level 3.3 g/dL (3.5-5.2); Alkaline Phosphatase 72 IU/L (40-130); Anion Gap 15.3 (5-19); Aspartate Amino Transferase 11 U/L (0-40); Blood Urea Nitrogen 46 mg/dL (8-23); Calcium 8.3 mg/dL (8.5-10.5); Carbon Dioxide 29 mmol/L (22-29); Chloride 98 mmol/L (98-107); Globulin 3.1 g/dL (1.3-4.6); Glucose 107 mg/dL (65-115); Magnesium 2.1 mg/dL (1.7-2.3); Osmolality Calculated 298 mOsm/kg (285-295); Phosphorus 4.7 mg/dL (2.5-4.5); Potassium 4.3 mmol/L (3.5-5.1); Sodium 138 mmol/L (136-145); Total Bilirubin 0.7 mg/dL (0.15-1.2); Total Protein 6.4 g/dL (6.6-8.7)
[2021-08-11 06:30] LABS: Glucose Point of Care 127 mg/dL (70-110)
--- NOTE | 2021-08-11 07:37 | PM.PN ---
Subjective Subjective: Interval history: feels better. still sob on bipap, weak. denie fevers Medications: Reviewed: Yes Medication Review Details: Current Medications Acetaminophen (Acetaminophen 325 Mg Tablet) 650 mg PO Q6H PRN PRN Reason: Mild/Mod Pain Or Temp >/= 101 Albuterol/Ipratropium (Ipratropium-Albuterol 3 Ml Neb) 3 ml INHALATION Q6H [facility] Last Admin: 08/11/21 01:44 Dose: 3 ml Documented by: Allopurinol (Allopurinol 100 Mg Tablet) 100 mg PO DAILY PRN PRN Reason: Gout Aspirin (Aspirin 81 Mg Ec Tablet) 81 mg PO DAILY@09 [facility] Atorvastatin Calcium (Atorvastatin 40 Mg Tablet) 80 mg PO DAILY@1800 [facility] Last Admin: 08/10/21 20:42 Dose: 80 mg Documented by: Dextrose (Dextrose 50% Syringe 50 Ml) 25 ml IVP ONCE PRN; Protocol PRN Reason: hypoglycemia protocol Dextrose (Dextrose 50% Syringe 50 Ml) 50 ml IVP PRN PRN; Protocol PRN Reason: hypoglycemia protocol Docusate Sodium (Docusate Sodium 100 Mg Capsule) 200 mg PO BID@ [facility] Last Admin: 08/10/21 20:42 Dose: 200 mg Documented by: Famotidine (Famotidine 20 Mg Tablet) 20 mg PO BID@ [facility] Last Admin: 08/10/21 20:42 Dose: 20 mg Documented by: Gabapentin (Gabapentin 300 Mg Capsule) 300 mg PO BID@ [facility] Last Admin: 08/10/21 20:43 Dose: 300 mg Documented by: Glucagon (Glucagon 1 Mg/Ml Inj 1 Ml) 1 mg IM ONCE PRN; Protocol PRN Reason: Adult Acute Hypoglycemia Prot. Heparin Sodium (Porcine) (Heparin 5,000 Unit/Ml Inj 1 Ml) 5,000 unit SUBCUT Q12H [facility] Last Admin: 08/11/21 06:10 Dose: 5,000 unit Documented by: Albumin Human (Albumin) 12.5 gm in 50 mls @ 60 mls/hr IV PRN PRN PRN Reason: Hypotension and/or symptomatic Dextrose (D5w) 500 mls @ 100 mls/hr IV ONCE PRN; Protocol PRN Reason: Adult Acute Hypoglycemia Prot Insulin Human Lispro (Insulin Lispro 100 Unit/1 Ml) 0 unit SUBCUT WM&BEDTIME [facility]; Protocol Last Admin: 08/10/21 22:26 Dose: 1 unit Documented by: Isosorbide Mononitrate (Isosorbide Mononitrate Er 30 Mg Tablet) 15 mg PO BID [facility] Last Admin: 08/10/21 20:43 Dose: 15 mg Documented by: Nifedipine (Nifedipine Er (24 Hr) 30 Mg Tablet) 60 mg PO DAILY@09 [facility] Ondansetron HCl (Ondansetron 2 Mg/Ml Sdv 2 Ml) 4 mg IVP Q6H PRN PRN Reason: vomiting, or N/V if npo Ondansetron HCl (Ondansetron 2 Mg/Ml Sdv 2 Ml) 4 mg IVP Q6H PRN PRN Reason: NAUSEA AND VOMITING Oxycodone/Acetaminophen (Oxycodone-Apap 5-325 Mg Tablet) 1 tab PO BID PRN PRN Reason: Pain Spironolactone (Spironolactone 25 Mg Tablet) 25 mg PO DAILY@09 [facility] Vitals/I&O/Wt Last Vital Signs Temp 98.9 F 08/11/21 04:00 Pulse 60 08/11/21 06:00 Resp 16 08/11/21 04:00 BP 119/73 08/11/21 04:00 Pulse Ox 93 08/11/21 04:00 08/10/21 08/11/21 08/11/21 22:59 06:59 14:59 Intake Total 240 / 240 Balance 240 / 240 Weight last 48 hrs Weight 125.6 kg Physical Exam Narrative: EXAM NARRATIVE: in bed, comfortable on bipap vs noted heent- nc/at, eomi, anicteric neck supple lungs crackles and ronchi b/l heart- irreg, +BOBBY abd soft, nt, ND +bs ext- no edema RUE AVG w/ thrill and bruit neuro- a,a, o x 3 pulses poor DP and PT Data : 08/11/21 05:34 08/11/21 05:34 Micro: Microbiology 08/10/21 12:26 Blood Culture - Preliminary Blood SPECIMEN COLLECTED 08/10/21 12:20 Blood Culture - Preliminary Blood SPECIMEN COLLECTED A&P Additional A&P Information 76 yr old man 1. ESRD- S/P HD and SUF yesterday -repeat HD in am 2. CHF- chronic systolic, Valvular heart disease- moderate MR [place] bnp [id number] -known RCA lesion - for cath and stent in august 2021 known pleural effusions -consider thoracentesis 2. chest ct - Moderate right pleural effusion with compressive atelectasis right lower lobe unchanged since January 01, 2021. - Patchy infiltrates in the left greater than right lower lobes. Recommend correlation for pneumonia. - Cardiomegaly with coronary calcification. Dense vascular calcification. - Tiny calculi in the gallbladder. 3.hgb okay for ESRD 4. met alkalosis from dialysis on 08-10-21 5. renal bone mineral metabolism- replete vit d, pth noted- zemplar as outpt -monitor ca, phos -is normal 6. restrictive lung disease- known to Dr. Adan - consider pulm consult w/ abnormal chest ct scan -await repeat COVID test 7. DM care per PMD 8. monitor bp seen and examined w/ RN- telehealth visit - time spent 25 minutes Attestations Medical Necessity Statement*: sob, Q PNA Time Spent in Patient Care: 16 - 35 minutes (>than 50% of time spent in counselling and/or direct pt care on unit). Coding Level of Care Code Acute Automatic Brine Mixer Operator for Aure[facility]
[2021-08-11] MEDS: docusate sodium 100 mg Capsule 200 MG PO ×2 (08:28→17:57)
[2021-08-11] MEDS: gabapentin 300 mg Capsule PO ×2 (08:28→17:58)
[2021-08-11] MEDS: famotidine 20 mg Tablet PO ×2 (08:29→17:57)
[2021-08-11] MEDS: spironolactone 25 mg Tablet PO (08:29)
[2021-08-11] MEDS: aspirin 81 mg EC Tablet PO (08:29)
[2021-08-11] MEDS: isosorbide mononitrate ER 30 mg Tablet 15 MG PO ×2 (08:29→17:57)
[2021-08-11] MEDS: NIFEdipine ER (24 hr) 30 mg Tablet 60 MG PO (08:29)
--- NOTE | 2021-08-11 10:21 | P.PN_ITS ---
Subjective Subjective: Interval history: Shon reports he feels little bit better. He wore BiPAP last night as he does at home. Still requiring quite a bit of oxygen as this was increased last night. Currently on 10 L. No chest discomfort. Reports no cough, chills. Medications: Reviewed: Yes Vitals/I&O/Wt Last Vital Signs Temp 98.1 F 08/11/21 08:00 Pulse 62 08/11/21 08:55 Resp 17 08/11/21 08:48 BP 151/80 08/11/21 08:00 Pulse Ox 95 08/11/21 08:48 08/10/21 08/11/21 08/11/21 22:59 06:59 14:59 Intake Total 240 / 240 400 / 400 Balance 240 / 240 400 / 400 Weight last 48 hrs Weight 125.6 kg Physical Exam Narrative: EXAM NARRATIVE: General exam is a white male, appears to be breathing easier on 10 L Neck is supple no lymphadenopathy or thyromegaly Cardiovascular regular rate and rhythm with a 2/6 systolic murmur Lungs diminished breath sounds at the bases without crackles or wheezing. More diminished on the right side. Abdomen is soft with positive bowel sounds. Obese. No obvious organomegaly. Extremities no cyanosis clubbing. Trace edema is present. Cap refill brisk. Data : 08/11/21 05:34 08/11/21 05:34 Micro: Microbiology 08/10/21 12:26 Blood Culture - Preliminary Blood SPECIMEN COLLECTED 08/10/21 12:20 Blood Culture - Preliminary Blood SPECIMEN COLLECTED A&P Assessment and plan (1) Shortness of Breath: Patient reports this started on Tuesday. He reports that this is similar to how he presented last hospital stay. There is concerned this represents pulmonary edema, which was a similar concern earlier this month during admission. He has history of recent decrease in his EF. An angiogram is planned early next month for intervention of his RCA which is known to be stenosed and right dominant. He also has a history of moderate right plerual effusion thought to be related to heart failure and small airway disease followed by pulmonary. Continue oxygen as needed Cardiology consultation appreciated CT chest demonstrates moderate pleural effusion, unchanged. Eliquis was held upon admission. Radiology has been consulted for thoracentesis, perhaps this afternoon. CT chest demonstrated some infiltrate so antibiotics restarted from emergency department. Infiltrate more predominant left lower lobe but this could be secondary to atelectasis as well. Check MRSA PCR. Procalcitonin was not elevated. However with clinical worsening antibiotics were restarted. Consistent with acute hypoxic respiratory failure secondary to work of breathing, oxygen need of 10 L which is significantly more than his baseline. Status: Acute (2) CAD (coronary artery disease): Known RCA disease, right dominant system. Cardiology consultation as patient has planned intervention early next month for this They are evaluating him this hospital stay for consideration of intervention Status: Acute Qualifiers: Coronary Disease-Associated Artery/Lesion type: [place] artery [place] vs. transplanted heart: [place] heart Associated angina: without angina Qualified Code(s): I25.10 - Atherosclerotic heart disease of [place] coronary artery without angina pectoris (3) Renal failure: Nephrology consultation Received dialysis on Tuesday Status: Acute Qualifiers: Renal failure chronicity: chronic Chronic kidney disease stage: on chronic dialysis Qualified Code(s): N18.6 - End stage renal disease; Z99.2 - Dependence on renal dialysis (4) Restrictive lung disease: DuoNeb every 6 hours No evidence of exacerbation currently Status: Acute (5) Diabetes mellitus: Sliding scale insulin Status: Acute (6) Atrial fibrillation: Currently with paced rhythm. Status: Acute Additional A&P Information Multiple other medical problems as outlined in past medical history. Full code On Eliquis prior to admission for anticoagulation. Holding currently for procedure and placed on heparin subcutaneous. This is also being held currently until thoracentesis is completed. SCDs for DVT prophylaxis. Attestations Medical Necessity Statement*: Needs continued hospital stay secondary to acute hypoxic respiratory failure, multifactorial from fluid overload, CHF, right pleural effusion, and perhaps pneumonia. Coding Level of Care Code Acute Program Support Assistant for [facility] Fwd Diagnoses Shortness of Breath R06.02 CAD (coronary artery disease) I25.10 Coronary Disease-Associated Artery/Lesion type: [place] artery [place] vs. transplanted heart: [place] heart Associated angina: without angina Renal failure N18.6; Z99.2 Renal failure chronicity: chronic Chronic kidney disease stage: on chronic dialysis Restrictive lung disease J98.4 Diabetes mellitus E11.9 Atrial fibrillation I48.91
[2021-08-11] MEDS: vancomycin 1,250 MG/250 ML PIGGYBACK 250 MG IV (10:24)
[2021-08-11 10:40] LABS: INR 1.29 (0.8-1.2)
--- NOTE | 2021-08-11 11:08 | PC.NURSE ---
U/S called stating that patient would have a Thoracentesis this afternoon around 1500 and patient would need to be NPO until the procedure. Order placed per Dr. Lea for NPO then to resume Cardiac diet with dinner. Informed Eric Peck RN of the above information.
[2021-08-11 11:56] LABS: Glucose Point of Care 186 mg/dL (70-110)
[2021-08-11] MEDS: piperacillin-tazobactam 3.375 GM in sodium chloride 0.9% (plus) 50 ML IV (12:54)
[2021-08-11 14:26] LABS: Coronavirus Test Green County Not Detected
--- NOTE | 2021-08-11 15:00 | US_ITS ---
WS: [id number] ULTRASOUND-GUIDED THORACENTESIS CLINICAL INFORMATION: right pleural effusion COMPARISON: None. PROCEDURE: Informed consent: The risks, benefits, and alternatives of the procedure were discussed with the elian ent. Verbal and written consent was obtained. Timeout: A timeout was performed to confirm the correct patient, procedure, and site. Site: Right Preparation: A suitable skin site was identified. The patient was prepped and draped in usual sterile fashion. Lidocaine 1% was used for local anesthesia. Catheter: 4 [place] One-Step catheter. Fluid Volume: 1100 ml Color: Gema 50 cc sent to the laboratory for further analysis. Complications: None US/ thoracentesis [id number] IMPRESSION: Uncomplicated ultrasound-guided right thoracentesis.
--- NOTE | 2021-08-11 15:29 | XR_ITS ---
WS: [id number] CHEST XRAY TECHNIQUE: Portable chest. CLINICAL INFORMATION: Post Thoracentisis COMPARISON: August 10, 2021 FINDINGS: Heart: Cardiomegaly. Aortic calcification. Single lead cardiac pacer. Lungs: Post right thoracentesis. Improved aeration the right lung. Small residual right pleural effus ion. No other significant changes. No pneumothorax. Bones: Normal visualized bony structures. XR/XR chest 1V portable [id number] IMPRESSION: Improved right pleural effusion post thoracentesis. No pneumothorax.
[2021-08-11 16:38] LABS: Body Fluid Polynuclear #Cells 0.037; Body Fluid WBC 187 /uL
[2021-08-11 16:44] LABS: Apprearance, Body Fluid CLEAR; Color, Body Fluid PALE YELLOW
[2021-08-11 17:24] LABS: Albumin Body Fluid 2.1 g/dL; Creatinine Body Fluid 4.46 (0.7-1.2); LDH Pleural Fluid 105 U/L; Total Protein Pleural Fluid 3.3 g/dL; Triglycerides, Pleural Fluid 18 mg/dL
[2021-08-11] MEDS: atorvastatin 40 mg Tablet 80 MG PO (17:58)
[2021-08-11] MEDS: insulin lispro 100 unit/1 mL SUBCUT (18:02)
[2021-08-11 18:07] LABS: Glucose Point of Care 266 mg/dL (70-110)
--- NOTE | 2021-08-11 19:27 | PC.NURSE ---
Report to Olivia RUIZ at this time.
[2021-08-11 21:29] LABS: Glucose Point of Care 236 mg/dL (70-110)
[2021-08-12] VITALS (18 sets, daily range): BP systolic 111–132; BP diastolic 66–77; PULSE 60–93; RESP 15–24; TEMP 36.8–37.1; O2SAT 87–99
[2021-08-12] MEDS: insulin lispro 100 unit/1 mL SUBCUT ×4 (00:38→21:54)
[2021-08-12] MEDS: heparin 5,000 unit/mL INJ 1 mL 5000 UNIT SUBCUT ×3 (00:39→21:54)
[2021-08-12] MEDS: piperacillin-tazobactam 3.375 GM in sodium chloride 0.9% (plus) 50 ML IV ×2 (00:39→14:22)
[2021-08-12 00:48] LABS: Glucose Point of Care 149 mg/dL (70-110)
[2021-08-12] MEDS: ipratropium-albuterol 3 mL Neb INHALATION ×3 (03:33→20:27)
[2021-08-12 06:33] LABS: Basophils % 0.6 %; Eosinophils # 0.3 10^3/uL (0.0-0.8); Eosinophils % 4.7 %; Hematocrit 28.5 % (42.0-52.0); Hemoglobin 9.2 g/dL (11.7-16.6); Lymphocytes # 1.3 10^3/uL (0.8-4.8); Lymphocytes % 20.1 %; Mean Corpuscular HGB Conc 32.3 g/dL (30.0-36.0); Mean Corpuscular Hemoglobin 30.7 pg (28.0-34.0); Mean Platelet Volume 10.4 fL (7.4-10.4); Monocytes # 0.7 10^3/uL (0.2-0.9); Monocytes % 11.7 %; Neutrophils # 3.94 10^3/uL (1.8-7.7); Neutrophils % 62.4 %; Nucleated Red Blood Cells % 0 %; Platelet Count 167 10^3/cmm (130-400); Red Cell Distribution Width 17.1 % (12.1-15.1); White Blood Count 6.3 10^3/uL (4.0-10.0)
[2021-08-12 06:57] LABS: Alanine Aminotransferase 11 U/L (0-41); Albumin Level 3.2 g/dL (3.5-5.2); Alkaline Phosphatase 65 IU/L (40-130); Anion Gap 24.3 (5-19); Aspartate Amino Transferase 8 U/L (0-40); Blood Urea Nitrogen 66 mg/dL (8-23); Calcium 8.1 mg/dL (8.5-10.5); Carbon Dioxide 22 mmol/L (22-29); Chloride 93 mmol/L (98-107); Globulin 2.9 g/dL (1.3-4.6); Glucose 116 mg/dL (65-115); Magnesium 2.1 mg/dL (1.7-2.3); Osmolality Calculated 300 mOsm/kg (285-295); Phosphorus 6.2 mg/dL (2.5-4.5); Potassium 4.3 mmol/L (3.5-5.1); Sodium 135 mmol/L (136-145); Total Bilirubin 0.4 mg/dL (0.15-1.2); Total Protein 6.1 g/dL (6.6-8.7)
[2021-08-12 07:18] LABS: Glucose Point of Care 129 mg/dL (70-110)
--- NOTE | 2021-08-12 07:45 | P.PN_ITS ---
Subjective Subjective: Interval history: used bipap overnight. feels better s/p 1 l thoracentesis. still w/ edema. no n/v/f/c/lackey/d Medications: Reviewed: Yes Medication Review Details: Current Medications Acetaminophen (Acetaminophen 325 Mg Tablet) 650 mg PO Q6H PRN PRN Reason: Mild/Mod Pain Or Temp >/= 101 Albuterol/Ipratropium (Ipratropium-Albuterol 3 Ml Neb) 3 ml INHALATION Q6H [facility] Last Admin: 08/12/21 03:33 Dose: 3 ml Documented by: Allopurinol (Allopurinol 100 Mg Tablet) 100 mg PO DAILY PRN PRN Reason: Gout Aspirin (Aspirin 81 Mg Ec Tablet) 81 mg PO DAILY@09 [facility] Last Admin: 08/11/21 08:29 Dose: 81 mg Documented by: Atorvastatin Calcium (Atorvastatin 40 Mg Tablet) 80 mg PO DAILY@1800 [facility] Last Admin: 08/11/21 17:58 Dose: 80 mg Documented by: Dextrose (Dextrose 50% Syringe 50 Ml) 25 ml IVP ONCE PRN; Protocol PRN Reason: hypoglycemia protocol Dextrose (Dextrose 50% Syringe 50 Ml) 50 ml IVP PRN PRN; Protocol PRN Reason: hypoglycemia protocol Docusate Sodium (Docusate Sodium 100 Mg Capsule) 200 mg PO BID@ [facility] Last Admin: 08/11/21 17:57 Dose: 200 mg Documented by: Famotidine (Famotidine 20 Mg Tablet) 20 mg PO BID@ [facility] Last Admin: 08/11/21 17:57 Dose: 20 mg Documented by: Gabapentin (Gabapentin 300 Mg Capsule) 300 mg PO BID@ [facility] Last Admin: 08/11/21 17:58 Dose: 300 mg Documented by: Glucagon (Glucagon 1 Mg/Ml Inj 1 Ml) 1 mg IM ONCE PRN; Protocol PRN Reason: Adult Acute Hypoglycemia Prot. Heparin Sodium (Porcine) (Heparin 5,000 Unit/Ml Inj 1 Ml) 5,000 unit SUBCUT Q12H [facility] Last Admin: 08/12/21 00:39 Dose: 5,000 unit Documented by: Albumin Human (Albumin) 12.5 gm in 50 mls @ 60 mls/hr IV PRN PRN PRN Reason: Hypotension and/or symptomatic Dextrose (D5w) 500 mls @ 100 mls/hr IV ONCE PRN; Protocol PRN Reason: Adult Acute Hypoglycemia Prot Piperacillin Sod/Tazobactam (Sod 3.375 gm/ Sodium Chloride) 50 mls @ 12.5 mls/hr IV Q12H [facility] Last Infusion: 08/12/21 05:20 Dose: Infused Documented by: Vancomycin/PEG/NADA/Lysine/Water (Vancocin) 1,250 mg in 250 mls @ 250 mls/hr IV Q36H [facility] Last Infusion: 08/11/21 11:24 Dose: Infused Documented by: Insulin Human Lispro (Insulin Lispro 100 Unit/1 Ml) 0 unit SUBCUT WM&BEDTIME [facility]; Protocol Last Admin: 08/12/21 00:38 Dose: 2 unit Documented by: Isosorbide Mononitrate (Isosorbide Mononitrate Er 30 Mg Tablet) 15 mg PO BID [facility] Last Admin: 08/11/21 17:57 Dose: 15 mg Documented by: Nifedipine (Nifedipine Er (24 Hr) 30 Mg Tablet) 60 mg PO DAILY@09 [facility] Last Admin: 08/11/21 08:29 Dose: 60 mg Documented by: Ondansetron HCl (Ondansetron 2 Mg/Ml Sdv 2 Ml) 4 mg IVP Q6H PRN PRN Reason: vomiting, or N/V if npo Ondansetron HCl (Ondansetron 2 Mg/Ml Sdv 2 Ml) 4 mg IVP Q6H PRN PRN Reason: NAUSEA AND VOMITING Oxycodone/Acetaminophen (Oxycodone-Apap 5-325 Mg Tablet) 1 tab PO BID PRN PRN Reason: Pain Spironolactone (Spironolactone 25 Mg Tablet) 25 mg PO DAILY@09 [facility] Last Admin: 08/11/21 08:29 Dose: 25 mg Documented by: Vitals/I&O/Wt Last Vital Signs Temp 98.8 F 08/12/21 04:00 Pulse 76 08/12/21 04:00 Resp 18 08/12/21 04:00 BP 118/68 08/12/21 04:00 Pulse Ox 97 08/12/21 04:00 08/11/21 08/12/21 08/12/21 22:59 06:59 14:59 Intake Total 490 / 1140 550 / 1690 Balance 490 / 1140 550 / 1690 Weight last 48 hrs Weight 125.6 kg Physical Exam Narrative: EXAM NARRATIVE: in bed, comfortable on bipap vs noted heent- nc/at, eomi, anicteric neck supple lungs - improved air movement. dec crackles b/l heart- irreg, +BOBBY abd soft, nt, ND +bs ext- + b/l leg edema RUE AVG w/ thrill and bruit neuro- a,a, o x 3 skin- no rash Data : 08/12/21 06:03 08/12/21 06:03 Micro: Microbiology 08/10/21 12:26 Blood Culture - Preliminary Blood NEGATIVE TO DATE 08/10/21 12:20 Blood Culture - Preliminary Blood NEGATIVE TO DATE A&P Additional A&P Information 76 yr old man 1. ESRD- S/P HD and SUF 08/10/21 -repeat HD today- 3k, remove fluids as tolerated -phos binders 2. CHF- chronic systolic, Valvular heart disease- moderate MR and bnp [id number] - RCA lesion - for cath and stent in august 2021 - pleural effusions s/p thoracentesis 3. anemia- CHINO and iron studies 4. renal bone mineral metabolism- replete vit d, pth noted- zemplar as outpt -monitor ca, phos -is normal 5. a fib - controlled rate 6. restrictive lung disease 7. DM care per PMD 8. meds reviewed- keep vanco trough under 19 seen and examined w/ RN- telehealth visit - time spent 30 minutes Attestations Medical Necessity Statement*: per medicine Time Spent in Patient Care: 16 - 35 minutes (>than 50% of time spent in counselling and/or direct pt care on unit) . Coding Level of Care Code Acute Line Driver for Aure[facility]
[2021-08-12 08:23] LABS: Iron 25 ug/dL (59-158); Percent Saturation 11.7 % (20-50); Total Iron Binding Capacity 212 mcg/dl; Unsaturated Iron Binding 187 ug/dL (112-347)
[2021-08-12 08:35] LABS: Ferritin 1207 ng/mL (30-400)
[2021-08-12] MEDS: docusate sodium 100 mg Capsule 200 MG PO ×2 (09:07→17:35)
[2021-08-12] MEDS: gabapentin 300 mg Capsule PO ×2 (09:07→17:35)
[2021-08-12] MEDS: aspirin 81 mg EC Tablet PO (09:07)
[2021-08-12] MEDS: famotidine 20 mg Tablet PO ×2 (09:07→17:35)
[2021-08-12] MEDS: spironolactone 25 mg Tablet PO (09:07)
[2021-08-12] MEDS: NIFEdipine ER (24 hr) 30 mg Tablet 60 MG PO (09:07)
[2021-08-12] MEDS: isosorbide mononitrate ER 30 mg Tablet 15 MG PO ×2 (09:08→17:35)
--- NOTE | 2021-08-12 10:10 | PC.NUTR ---
Nutrition note: Changed diet order to Renal diabetic dialysis per Dr. Piña's request. No triggers to assess pt at this time. Will follow per policy.
--- NOTE | 2021-08-12 11:25 | P.PN_ITS ---
Subjective Subjective: Interval history: Shon reports he feels better this morning. Less short of breath. Believes the thoracentesis helped quite a bit. No significant cough. Medications: Reviewed: Yes Vitals/I&O/Wt Last Vital Signs Temp 98.7 F 08/12/21 08:32 Pulse 72 08/12/21 09:40 Resp 16 08/12/21 09:40 BP 115/66 08/12/21 08:32 Pulse Ox 94 08/12/21 09:40 08/11/21 08/12/21 08/12/21 22:59 06:59 14:59 Intake Total 490 / 1140 550 / 1690 600 / 600 Balance 490 / 1140 550 / 1690 600 / 600 Physical Exam Narrative: EXAM NARRATIVE: General exam is a white male, currently on 3 L Neck is supple no lymphadenopathy or thyromegaly Cardiovascular regular rate and rhythm with a 2/6 systolic murmur Lungs diminished breath sounds at the bases without crackles or wheezing. Abdomen is soft with positive bowel sounds. Obese. No obvious organomegaly. Extremities no cyanosis clubbing. Trace edema is present. Cap refill brisk. Data : 08/12/21 06:03 08/12/21 06:03 Micro: Microbiology 08/10/21 12:20 Blood Culture - Preliminary Blood 08/11/21 15:31 Gram Stain - Final Pleural Fluid 08/10/21 12:26 Blood Culture - Preliminary Blood NEGATIVE TO DATE A&P Assessment and plan (1) Shortness of Breath: Patient reports this started on Tuesday. He reports that this is similar to how he presented last hospital stay. There is concerned this represents pulmonary edema, which was a similar concern earlier this month during admission. He has history of recent decrease in his EF. An angiogram is plann ed early next month for intervention of his RCA which is known to be stenosed and right dominant. He also has a history of moderate right plerual effusion thought to be related to heart failure and small airway disease followed by pulmonary. Continue oxygen as needed Cardiology consultation appreciated CT chest demonstrates moderate pleural effusion, unchanged. Eliquis was held upon admission. Radiology performed thoracentesis with a little over a liter removed. This improved patient's symptomatology significant. It appears exudative and creat elevated. Will review with patient if he still makes any urine. Cultures pending. CT chest demonstrated some infiltrate so antibiotics restarted from emergency department. Infiltrate more predominant left lower lobe but this could be secondary to atelectasis as well. MRSA PCR pending. Procalcitonin was not elevated. However with clinical worsening antibiotics were restarted. Consistent with acute hypoxic respiratory failure secondary to work of breathing, oxygen need of 10 L which is significantly more than his baseline. Blood culture 1/3 bottles with gram-positive cocci. Likely contaminant. We will continue to follow. With no fever, or elevated white count and high likelihood this is contamination repeat cultures have not been ordered. Status: Acute (2) CAD (coronary artery disease): Known RCA disease, right dominant system. Cardiology consultation as patient has planned intervention early next month for this They are evaluating him this hospital stay for consideration of intervention Status: Acute (3) Renal failure: Nephrology consultation appreciated Dialysis expected today Status: Acute Qualifiers: Renal failure chronicity: chronic Chronic kidney disease stage: on chronic dialysis Qualified Code(s): N18.6 - End stage renal disease; Z99.2 - Dependence on renal dialysis (4) Restrictive lung disease: DuoNeb every 6 hours No evidence of exacerbation currently Status: Acute (5) Diabetes mellitus: Sliding scale insulin Status: Acute (6) Atrial fibrillation: Currently with paced rhythm. Status: Acute Additional A&P Information Multiple other medical problems as outlined in past medical history. Full code On Eliquis prior to admission for anticoagulation. Holding currently for procedure and placed on heparin subcutaneous. This is also being held currently in case further procedures are needed. SCDs for DVT prophylaxis as well. Attestations Medical Necessity Statement*: Needs continued hospitalization for IV antibiotics for concern of pneumonia. 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
[2021-08-12 11:32] LABS: Glucose Point of Care 179 mg/dL (70-110)
--- NOTE | 2021-08-12 11:59 | US_ITS ---
WS: [id number] ULTRASOUND RENAL TECHNIQUE: Ultrasound examination of both kidneys. CLINICAL INFORMATION: check for obstruction. COMPARISON: None. FINDINGS: RIGHT: A few small simple right renal cysts Right kidney is normal in size and appearance. Echogenicity: Normal. Cortical thickness: 1.6 cm; Normal. Hydronephrosis: None. Perinephric fluid: None. Right kidney measures: 9.2 cm x 6.1 cm x 4.3 cm. LEFT: Small slightly complex left renal cysts measuring 1 to 2 cm with some internal debris. Left kidney is normal in size and appearance. Echogenicity: Normal. Cortical thickness: 1.2 cm; Normal. Hydronephrosis: None. Perinephric fluid: None. Left kidney measures: 8.2 cm x 4.0 cm x 3.8 cm. Normal visualized aorta. Normal bladder. Prostate measures 3.4 x 2.7 x 2.8 cm. US/US renal BI* [id number] IMPRESSION: 1. No hydronephrosis in either kidney. No visualized ureteral jets at this lashawn e. 2. A few small simple and slightly complex renal cysts measuring 1 to 2 cm roderick aterally. 3. Prostate measures 2.4 x 2.7 x 3.8 cm.
[2021-08-12 14:56] LABS: Lactate Dehydrogenase 178 U/L (135-225)
[2021-08-12 17:03] LABS: Glucose Point of Care 260 mg/dL (70-110)
[2021-08-12] MEDS: atorvastatin 40 mg Tablet 80 MG PO (17:34)
[2021-08-12] MEDS: sevelamer 800 mg Tablet 2400 MG PO (17:34)
[2021-08-12] MEDS: oxyCODONE-APAP 5-325 mg Tablet 1 TAB PO (17:47)
[2021-08-12 21:07] LABS: Glucose Point of Care 211 mg/dL (70-110)
[2021-08-12] MEDS: vancomycin 1,250 MG/250 ML PIGGYBACK 250 MG IV (21:55)
[2021-08-13] VITALS (7 sets, daily range): BP systolic 127–138; BP diastolic 63–72; PULSE 60–70; RESP 16–20; TEMP 36.7; O2SAT 90–96
[2021-08-13] MEDS: ipratropium-albuterol 3 mL Neb INHALATION ×2 (02:03→09:17)
[2021-08-13] MEDS: piperacillin-tazobactam 3.375 GM in sodium chloride 0.9% (plus) 50 ML IV (02:48)
[2021-08-13 06:20] LABS: Basophils # 0.1 10^3/uL (0.0-0.1); Eosinophils # 0.3 10^3/uL (0.0-0.8); Eosinophils % 5.6 %; Hematocrit 26.8 % (42.0-52.0); Hemoglobin 8.6 g/dL (11.7-16.6); Lymphocytes # 1.1 10^3/uL (0.8-4.8); Lymphocytes % 19.1 %; Mean Corpuscular HGB Conc 32.1 g/dL (30.0-36.0); Mean Corpuscular Hemoglobin 30.7 pg (28.0-34.0); Mean Corpuscular Volume 95.7 fl (80-94); Mean Platelet Volume 10.3 fL (7.4-10.4); Monocytes # 0.7 10^3/uL (0.2-0.9); Monocytes % 11.5 %; Neutrophils % 62.5 %; Nucleated Red Blood Cells % 0 %; Platelet Count 159 10^3/cmm (130-400); Red Cell Distribution Width 16.9 % (12.1-15.1); White Blood Count 5.8 10^3/uL (4.0-10.0)
[2021-08-13 06:42] LABS: Alanine Aminotransferase 12 U/L (0-41); Albumin Level 3.2 g/dL (3.5-5.2); Alkaline Phosphatase 63 IU/L (40-130); Anion Gap 20.3 (5-19); Aspartate Amino Transferase 9 U/L (0-40); Blood Urea Nitrogen 39 mg/dL (8-23); Carbon Dioxide 21 mmol/L (22-29); Chloride 95 mmol/L (98-107); Globulin 3.2 g/dL (1.3-4.6); Glucose 141 mg/dL (65-115); Magnesium 1.9 mg/dL (1.7-2.3); Osmolality Calculated 286 mOsm/kg (285-295); Phosphorus 5.1 mg/dL (2.5-4.5); Potassium 4.3 mmol/L (3.5-5.1); Sodium 132 mmol/L (136-145); Total Bilirubin 0.3 mg/dL (0.15-1.2); Total Protein 6.4 g/dL (6.6-8.7)
[2021-08-13 07:00] LABS: Glucose Point of Care 153 mg/dL (70-110)
[2021-08-13] MEDS: NIFEdipine ER (24 hr) 30 mg Tablet 60 MG PO (08:36)
[2021-08-13] MEDS: insulin lispro 100 unit/1 mL SUBCUT (08:36)
[2021-08-13] MEDS: sevelamer 800 mg Tablet 2400 MG PO (08:36)
[2021-08-13] MEDS: aspirin 81 mg EC Tablet PO (08:37)
[2021-08-13] MEDS: famotidine 20 mg Tablet PO (08:37)
[2021-08-13] MEDS: isosorbide mononitrate ER 30 mg Tablet 15 MG PO (08:37)
[2021-08-13] MEDS: spironolactone 25 mg Tablet PO (08:37)
[2021-08-13] MEDS: gabapentin 300 mg Capsule PO (08:37)
[2021-08-13] MEDS: docusate sodium 100 mg Capsule 200 MG PO (08:37)
[2021-08-13] MEDS: heparin 5,000 unit/mL INJ 1 mL 5000 UNIT SUBCUT (08:38)
--- NOTE | 2021-08-13 08:41 | XR_ITS ---
WS: [id number] Portable AP upright chest, 08/13/2021 Clinical Data: follow up effusion Comparison: Portable chest, 08/11/2021. Findings: No nodules, masses or effusions are seen. The heart is enlarged. The pulmonary vascularity is not increased. No pneumonia or pneumothorax is seen. The aortic arch shows calcification. The sing le lead pacemaker remains in good position. XR/XR chest 1V portable [id number] Impression: Atherosclerosis and cardiomegaly.
--- NOTE | 2021-08-13 10:39 | PM.DCS ---
Discharge Providers Date of Admission: 08/10/21 15:00 Date of Discharge: August 13, 2021 Attending Provider at Admission: Ron Piña MD Attending Provider at Discharge: Ron Piña MD Primary Care Provider: Adria Artis DO Diagnoses at Discharge Discharge Diagnosis (1) Shortness of Breath: Status: Acute (2) CAD (coronary artery disease): Status: Acute (3) Renal failure: Status: Acute Qualifiers: Chronic kidney disease stage: on chronic dialysis Renal failure chronicity: chronic Qualified Code(s): N18.6 - End stage renal disease; Z99.2 - Dependence on renal dialysis (4) Restrictive lung disease: Status: Acute (5) Diabetes mellitus: Status: Acute (6) Atrial fibrillation: Status: Acute Reason for Visit Reason for Visit: SOB Hospital Course Hospital Course Shon is a 76-year-old white male who presented to the hospital short of breath. There was concern he had fluid overload from CHF, and dialysis was initiated to try to help with shortness of breath. Dialysis provided adequate diuresis and he still had significant shortness of breath. A CT chest was obtained which demonstrated a right pleural effusion. This was at least moderate, and present on previous CT scan. Secondary to continued shortness of breath he was placed on IV antibiotics for concern of possible pneumonia and thoracentesis was obtained. This was ultrasound-guided, by radiology and yielded approximately 1100 cc. This was borderline exudative by albumin but transudate of per LDH. Creatinine was also elevated. Cultures were negative at time of discharge of fluid. After thoracentesis, patient's shortness of breath improved markedly and oxygen was able to be weaned below his recent baseline. With his significant improvement, it was thought he could be discharged home. Although he was placed on IV antibiotics during the hospital stay he never had fever, significant elevation of white blood cell count. MRSA PCR was negative. Therefore he will complete a short course of cefdinir for radiographic findings prior to follow-up with pulmonary. On follow-up with pulmonary consideration could be made to ultrasounding right chest to see if effusion recurs. It was not seen on regular x-ray. Renal ultrasound was done to confirm there was no renal obstruction as the patient still makes urine and creatinine and pleural fluid was elevated. No evidence of obstruction was noted. He also has a planned angiogram for August 18 which cardiology wishes to proceed with as outpatient. I instructed the patient to make sure that he received guidance from them regarding when his Eliquis should be held. Physical Exam Narrative: EXAM NARRATIVE: General exam no distress Neck is supple Cardiovascular regular rate and rhythm Lungs clear Abdomen is soft Extremities no cyanosis clubbing. Trace edema present bilaterally. Discharge Data Data Completed and Pending: Completed Studies During Hospitalization Category Date Time Status CT chest wo con 7 1250 Urgent Cat Scan 08/10/21 13:22 Completed XR chest 1V selene ble [id number] Routine Exams 08/11/21 15:29 Completed XR chest 1V selene ble [id number] Routine Exams 08/13/21 08:41 Completed XR chest 1V selene ble [id number] Stat Exams 08/10/21 09:45 Completed US renal BI* [id number] Routine Ultrasound 08/12/21 11:59 Completed US thoracentesis [id number] Routine Ultrasound 08/11/21 15:00 Completed Pending at discharge Category Date Time Status Blood Culture Sta t Lab 08/10/21 12:26 Results Body Fluid Cultur e & GS Routine Lab 08/11/21 15:31 Results Mycobacteria, Cul ture w/Fluor Routi ne Lab 08/11/21 15:31 Received Sputum Culture an d Gram Stain Stat Lab 08/10/21 10:56 Uncollected Cytology [PTH] Ro utine Pth 08/11/21 09:04 Received Labs from last 24 hours 08/13/21 08/13/21 08/13/21 06:36 05:06 05:06 WBC 5.8 RBC 2.80 L Hgb 8.6 L Hct 26.8 L MCV 95.7 H MCH 30.7 MCHC 32.1 RDW 16.9 H Plt Count 159 MPV 10.3 Neut % (Auto) 62.5 Lymph % (Auto) 19.1 [place] % (Auto) 11.5 Eos % (Auto) 5.6 Baso % (Auto) 1.0 Neut # (Auto) 3.60 Lymph # (Auto) 1.1 [place] # (Auto) 0.7 Eos # (Auto) 0.3 Baso # (Auto) 0.1 Nucleated RBC % (a uto) 0 Nucleated RBCs # 0.0 Sodium 132 L Potassium 4.3 Chloride 95 L Carbon Dioxide 21 L Anion Gap 20.3 H BUN 39 H Creatinine 3.9 H GFR Calculation Not Reportable Glucose 141 H POC Glucose 153 H Calculated Osmolal ity 286 Calcium 8.0 L Phosphorus 5.1 H Magnesium 1.9 Total Bilirubin 0.3 AST 9 ALT 12 Alkaline Phosphata se 63 Lactate Dehydrogen ase Total Protein 6.4 L Albumin 3.2 L Globulin 3.2 08/12/21 08/12/21 08/12/21 20:51 17:01 11:27 WBC RBC Hgb Hct MCV MCH MCHC RDW Plt Count MPV Neut % (Auto) Lymph % (Auto) [place] % (Auto) Eos % (Auto) Baso % (Auto) Neut # (Auto) Lymph # (Auto) [place] # (Auto) Eos # (Auto) Baso # (Auto) Nucleated RBC % (a uto) Nucleated RBCs # Sodium Potassium Chloride Carbon Dioxide Anion Gap BUN Creatinine GFR Calculation Glucose POC Glucose 211 H 260 H 179 H Calculated Osmolal ity Calcium Phosphorus Magnesium Total Bilirubin AST ALT Alkaline Phosphata se Lactate Dehydrogen ase Total Protein Albumin Globulin 08/12/21 06:05 WBC RBC Hgb Hct MCV MCH MCHC RDW Plt Count MPV Neut % (Auto) Lymph % (Auto) [place] % (Auto) Eos % (Auto) Baso % (Auto) Neut # (Auto) Lymph # (Auto) [place] # (Auto) Eos # (Auto) Baso # (Auto) Nucleated RBC % (a uto) Nucleated RBCs # Sodium Potassium Chloride Carbon Dioxide Anion Gap BUN Creatinine GFR Calculation Glucose POC Glucose Calculated Osmolal ity Calcium Phosphorus Magnesium Total Bilirubin AST ALT Alkaline Phosphata se Lactate Dehydrogen ase 178 Total Protein Albumin Globulin Vitals: Last Vital Signs Temp 98.0 F 08/13/21 07:18 Pulse 64 08/13/21 07:18 Resp 16 08/13/21 07:18 BP 127/72 08/13/21 07:18 Pulse Ox 90 08/13/21 07:18 Discharge Plan Discharge Patient Disposition: Home Condition: Stable Prescriptions: New cefdinir 300 mg capsule 300 mg PO Q12H 5 Days Qty: 10 RF: 0 Continued atorvastatin 80 mg tablet 80 mg PO DAILY@1800 RF: 0 nifedipine 60 mg tablet extended release 60 mg PO DAILY@09 RF: 0 All Day Allergy (cetirizine) 10 mg capsule 10 mg PO DAILY@09 RF: 0 nitroglycerin 0.4 mg tablet, sublingual 0.4 mg SUBLINGUAL Q5M PRN (Reason: Chest Pain) RF: 0 Mircera 30 mcg/0.3 mL syringe 60 mcg SUBCUT Q14D RF: 0 gabapentin 300 mg capsule 300 mg PO BID@ RF: 0 sevelamer carbonate [Renvela] 800 mg tablet 2,400 mg PO TID@ RF: 0 omega-3 fatty acids [Fish Oil Concentrate] 1,000 mg capsule 1,000 mg PO BID@ RF: 0 spironolactone 25 mg tablet 25 mg PO DAILY@ RF: 0 albuterol sulfate 90 mcg/actuation HFA aerosol inhaler 2 puff inhalation Q6H PRN (Reason: shortness of breath or wheezing) 30 Days Qty: 8.5 RF: 3 famotidine [Pepcid] 20 mg tablet 20 mg PO BID@ RF: 0 Saxenda 3 mg/0.5 mL (18 mg/3 mL) pen injector 3 mg SUBCUT DAILY PRN (Reason: weight loss) RF: 0 isosorbide mononitrate 30 mg tablet extended release 24 hr 15 mg PO BID Qty: 90 RF: 3 allopurinol 100 mg Tablet 100 mg PO DAILY PRN (Reason: Gout) RF: 0 oxycodone-acetaminophen 5-325 mg Tablet 1 tab PO BID PRN (Reason: Pain) RF: 0 polyethylene glycol 3350 [Miralax] 17 gram/dose Powder 17 g PO DAILY PRN (Reason: Constipation) RF: 0 docusate sodium 100 mg Capsule 200 mg PO BID@ RF: 0 Lantus U-100 Insulin 100 unit/mL Solution 50 unit SUBCUT QAM RF: 0 B complex-vitamin C-folic acid 0.8 mg Tablet 1 tab PO DAILY@ RF: 0 Stiolto Respimat 2.5-2.5 mcg/actuation mist 2 puff inhalation QAM RF: 0 albuterol sulfate 2.5 mg /3 mL (0.083 %) Solution For Nebulization 2.5 mg inhalation Q6H PRN (Reason: Shortness Of Breath) RF: 0 lidocaine-prilocaine 2.5-2.5 % Cream 1 applic topical TID PRN (Reason: Pain) RF: 0 gentamicin 0.1 % Cream 1 applic TOPICAL TID PRN (Reason: unknown) RF: 0 cinacalcet 30 mg Tablet 30 mg PO .THREE TIMES A WEEK RF: 0 cholecalciferol (vitamin D3) 1,250 mcg (50,000 unit) Capsule 50,000 unit PO Q7D RF: 0 aspirin [Adult Low Dose Aspirin] 81 mg tablet,delayed release (DR/EC) 81 mg PO DAILY@09 Qty: 30 RF: 3 Eliquis 5 mg tablet 5 mg PO BID@09,18 30 Days Qty: 60 RF: 0 Lasix 80 mg tablet 80 mg PO DAILY PRN (Reason: Edema) RF: 0 Discontinued methylprednisolone 4 mg tablets,dose pack See Rx Instructions .ROUTE .COMPLEX RF: 0 Discharge Orders: Discharge Order (Routine); Ordered 08/13/21 Ordered By: Ron Piña Referrals: Adria Artis DO [Primary Care Provider] - 08/18/21 1:30 pm Nuno Adan MD [Physician] - 7-10 days (Follow-up pleural effusion) Discharge Diet: Cardiac and Diabetic Discharge Activity: Increase activity as tolerated Patient Instructions: Opioid Safety Activity Restrictions/Additional Instructions: Resume your oxygen at 3 L per nasal cannula. Return for any worsening Contact cardiology for when they would like for you to hold your anticoagulation prior to procedure. Take all medicine as prescribed Discharge Attestations Time Spent in Discharge Care*: greater than 30 min Quality Metrics Clinical Quality Measures During this hospital stay, did patient experience: None Coding Level of Care Code Acute [facility] note Diagnoses Shortness of Breath R06.02 CAD (coronary artery disease) I25.10 Renal failure N18.6; Z99.2 Chronic kidney disease stage: on chronic dialysis Renal failure chronicity: chronic Restrictive lung disease J98.4 Diabetes mellitus E11.9 Atrial fibrillation I48.91
--- NOTE | 2021-08-13 11:17 | PC.SOCIAL ---
IMM Update pg 2 of IMM updated and reviewed w/ patient. Copy provided.
== END 2021-08-13 11:40 | disposition home or self-care (01) | DRG 189 ==
LOC: ER 17:20 → MEDSURG 17:58
PROVIDERS: Internal Medicine Nephrology; Admitting Provider Internal Medicine; Emergency Provider Family Medicine; PCP Emergency Medicine Emergency Medical Services; Visit Provider Internal Medicine
DX: J96.01 Acute respiratory failure with hypoxia (principal); I50.23 Acute on chronic systolic (congestive) heart failure; N18.6 End stage renal disease; J18.9 Pneumonia, unspecified organism; J90 Pleural effusion, not elsewhere classified; I13.2 Hypertensive heart and chronic kidney disease with heart failure and with stage 5 chronic kidney disease, or end stage renal disease; E87.3 Alkalosis; E11.22 Type 2 diabetes mellitus with diabetic chronic kidney disease; Z99.2 Dependence on renal dialysis; D63.1 Anemia in chronic kidney disease; I48.91 Unspecified atrial fibrillation; I25.10 Atherosclerotic heart disease of native coronary artery without angina pectoris; Z98.61 Coronary angioplasty status; E78.00 Pure hypercholesterolemia, unspecified; I25.2 Old myocardial infarction; E11.42 Type 2 diabetes mellitus with diabetic polyneuropathy; G47.33 Obstructive sleep apnea (adult) (pediatric); Z95.0 Presence of cardiac pacemaker; Z87.01 Personal history of pneumonia (recurrent); Z87.891 Personal history of nicotine dependence; J98.4 Other disorders of lung; E66.01 Morbid (severe) obesity due to excess calories; Z79.01 Long term (current) use of anticoagulants; Z79.82 Long term (current) use of aspirin; Z79.4 Long term (current) use of insulin; Z79.891 Long term (current) use of opiate analgesic; Z79.51 Long term (current) use of inhaled steroids; Z99.81 Dependence on supplemental oxygen; T50.B95A Adverse effect of other viral vaccines, initial encounter; I08.0 Rheumatic disorders of both mitral and aortic valves
CPT/HCPCS: 32555; 36415; 36416; 36600; 71045; 71250; 76770; 80051; 80053; 80500; 82042; 82150; 82330; 82550; 82570; 82728; 82805; 82945; 82962; 83540; 83550; 83605; 83615; 83735; 83880; 83986; 84100; 84145; 84157; 84478; 84484; 85014; 85025; 85610; 86140; 86706; 86803; 87015; 87040; 87070; 87075; 87116; 87205; 87206; 87340; 87426; 87635; 87641; 87801; 88112; 88305; 89050; 90935; 93005; 94640; 94660; 96365; 96367; 96372; 99285; J1644; J1815; J2543; J3370; J7050; Q3014

== ENCOUNTER → 2021-11-11 09:18 | Outpatient (BNVA) | payer OTHER, SELFPAY | PROVIDERS: PCP Emergency Medicine Emergency Medical Services; Visit Provider Internal Medicine Critical Care Medicine | DX: R06.02 Shortness of breath (principal); I50.9 Heart failure, unspecified; J18.9 Pneumonia, unspecified organism; J98.4 Other disorders of lung; N19 Unspecified kidney failure | CPT/HCPCS: 99214 ==

== ENCOUNTER 2022-02-11 10:41 | Emergency (ER) | payer OTHER, MEDICARE, SELFPAY ==
[2022-02-11 10:53] VITALS: BP 137/69; PULSE 74; RESP 16; TEMP 36.4; O2SAT 93; BMI 38.9
--- NOTE | 2022-02-11 11:02 | ED_ITS ---
HPI - Fall General: Chief Complaint: Fall Stated Complaint: sent from [place]- fall facial pain Time Seen by Provider: 02/11/22 10:52 History of Present Illness: Mr. Mullen is a 76-year-old gentleman on Eliquis who presents to the emergency department due to fall. He reports being at his [employer] the past few days and got tangled in the sheets this morning and slipped headfirst out of bed. He he does report hitting his face and primarily noticed bleeding from his right eyelid which was controlled with direct pressure. He denies loss of consciousness or prolonged downtime. He does endorse some right neck and shoulder pain. He presented to [facility] who referred him to the emergency department for further evaluation given fall on anticoagulation with head injury. Denies changes in vision or significant headache. Overall intensity symptoms is mild. Course has persisted. Denies prodromal symptoms prior to falling out of bed. No other specific changes in health, exacerbating, or alleviating factors identified. Up-to-date on tetanus vaccine Onset (ago): hour(s) Fall from: out of bed Place fall occurred: home Loss of consciousness: None Prolonged down time: no Location of injury: face Location of injury - extremities: Right: shoulder Severity: mild Review of Systems General: Reports: 10 or more systems reviewed and unremarkable except in HPI and below PFS ED PFSH: Medical History Accelerated essential hypertension Anemia Atrial fibrillation CAD (coronary artery disease) CHF (congestive heart failure) Chronic anticoagulation Diabetes mellitus ESRD (end stage renal disease) Heart failure Hypercholesteremia LV dysfunction Myocardial infarct Neuropathy MARAL (obstructive sleep apnea) Pacemaker Pneumonia Renal failure Respiratory failure with hypoxia Restrictive lung disease Small airways disease Surgical History Hemodialysis access, AV graft History of colonoscopy with polypectomy 2020 Peritoneal dialysis status (03/02/21) removed S/P cardiac pacemaker procedure S/P cataract surgery S/P dialysis catheter insertion S/P PTCA (percutaneous transluminal coronary angioplasty) Family History Mother Heart disease Social History Smoking and tobacco status: former smoker Quit status (tobacco): has quit using tobacco Year quit tobacco: 1984 Former quit date comment: 3PPD x 17 Years Second hand smoke exposure: No Smoking risk assessment/counseling performed?: No Alcohol intake: never Counseling given: No Counseling given: No Lives independently: Yes Household members: spouse Housing: House Marital status: service: Yes Current occupational status: retired Pets and animals: No History of recent travel: No Current gender identity: Male Physical Exam Const: COMMON NORMALS: alert GENERAL APPEARANCE: cooperative and well developed HENMT: COMMON NORMALS: normocephalic and atraumatic HEAD & SCALP: normocephalic and atraumatic Eye: COMMON NORMALS: conjunctivae normal CONJUNCTIVA: Yes conjunctivae normal SCLERA: sclerae normal OTHER: Small superficial laceration approximately midline superior eyelid with adherent clot. No evidence of full-thickness injury. No evidence of entrapment. No hyphema. Neck/C-Spine: COMMON NORMALS: supple GENERAL: Yes trachea midline Resp: COMMON NORMALS: normal respiratory effort EFFORT & INSPECTION: Yes able to speak in complete sentences AUSCULTATION: diminished lung sounds OTHER: Baseline oxygen Cardio: COMMON NORMALS: regular rate and regular rhythm RATE: regular rate RHYTHM: regular rhythm GI: COMMON NORMALS: Soft to palpation PALPATION: Yes Soft to palpation and No Tenderness to palpation present (GI) PERCUSSION: normal to percussion Extremity: NARRATIVE EXTREMITY EXAM: Tenderness palpation with mild limitation of range of motion of the right shoulder and superior lateral humerus GENERAL: Yes normal exam except as noted and No edema Neuro: COMMON NORMALS: moves all extremities SENSORIUM/ORIENTATION: Yes alert and No Orientation impaired Psych: COMMON NORMALS: mental status grossly normal and Normal thought process present THOUGHT PROCESS: Normal thought process present Course ED course: - Patient was seen and evaluated by me at bedside - Vital signs obtained - Initial evaluation notable for exam as above - xrays personally interpreted by me - Imaging notable for no acute fracture identified on x-ray. CT negative for acute traumatic injury - Upon serial reexamination after treatment the patient was similar - Based on patient history, evaluation, and testing as interpreted the most likely cause of the patient's condition is fall with soft tissue injury - The results of ED evaluation were discussed with the patient including symptomatic cares (if applicable) including appropriate and responsible use, followup plan, and return precautions. The patient verbalized understanding and felt safe for discharge. - Patient discharged in satisfactory condition. Note: Click bubbles or prepopulated leyva in note writing are used for assistance with data collection and billing and are inherently more limited than narrative and other text portions of this note. Please use narrative for additional clinical history and defer to narrative/free test for any case of contradictory information. If information appears in only free text or click bubble it should be considered present or absent as reported. Please contact note securities underwriter for clarifications of clinical information or contradictory information. MDM is a brief summary, contradictory or erroneous seeming information should be clarified and full note should be reviewed. Vital Signs: Vital signs: Vital Signs Temperature 97.6 F 02/11/22 10:53 Pulse Rate 66 02/11/22 12:21 Respiratory Rate 16 02/11/22 10:53 Blood Pressure 138/85 02/11/22 12:21 Pulse Oximetry 94 02/11/22 12:21 MDM - Fall Medical Decision Making 76-year-old gentleman on anticoagulation presenting due to fall. Fall was without prodromal symptoms. Primarily landed on face. Mild right orbital ecchymosis without visual changes, superficial laceration with adherent clot without active hemorrhage. Patient up-to-date on Tdap. Negative imaging. Satisfactory for outpatient management. Medical Records I reviewed the patient's medical records. Lab Data I reviewed the patient's lab results. Radiology Impressions Cervical Spine CT 02/11/22 11:09 IMPRESSION: No acute findings. Head CT 02/11/22 11:09 IMPRESSION: No acute intracranial abnormality. Shoulder X-Ray 02/11/22 11:09 IMPRESSION: No acute findings. Discharge Plan Discharge Patient Disposition: Home Clinical Impression: Fall, Head injury, Contusion of right orbital tissues, Superficial laceration Condition: Stable Prescriptions: No Action atorvastatin 80 mg tablet 80 mg PO DAILY@1800 0RF nifedipine 60 mg tablet extended release 60 mg PO DAILY@09 0RF All Day Allergy (cetirizine) 10 mg capsule 10 mg PO DAILY@09 0RF nitroglycerin 0.4 mg tablet, sublingual 0.4 mg SUBLINGUAL Q5M PRN (Reason: Chest Pain) 0RF Mircera 30 mcg/0.3 mL syringe 60 mcg SUBCUT Q14D 0RF gabapentin 300 mg capsule 300 mg PO BID@,18 0RF sevelamer carbonate [Renvela] 800 mg tablet 2,400 mg PO TID@,,18 0RF omega-3 fatty acids [Fish Oil Concentrate] 1,000 mg capsule 1,000 mg PO BID@ 0RF spironolactone 25 mg tablet 25 mg PO DAILY@09 0RF albuterol sulfate 90 mcg/actuation HFA aerosol inhaler 2 puff inhalation Q6H PRN (Reason: shortness of breath or wheezing) 30 Days Qty: 8.5 3RF famotidine [Pepcid] 20 mg tablet 20 mg PO BID@ 0RF Saxenda 3 mg/0.5 mL (18 mg/3 mL) pen injector 3 mg SUBCUT DAILY PRN (Reason: weight loss) 0RF Rx Instructions: see pharmacy comments ( states not taken since oct) clopidogrel 75 mg tablet 75 mg PO DAILY 0RF Stiolto Respimat 2.5-2.5 mcg/actuation mist 2 puff inhalation DAILY 0RF Daliresp 250 mcg tablet 250 mcg PO DAILY 0RF cholecalciferol (vitamin D3) 50 mcg (2,000 unit) capsule 50 mcg PO DAILY 0RF isosorbide mononitrate 30 mg tablet extended release 24 hr 15 mg PO BID Qty: 90 3RF allopurinol 100 mg Tablet 100 mg PO DAILY PRN (Reason: Gout) 0RF oxycodone-acetaminophen 5-325 mg Tablet 1 tab PO BID PRN (Reason: Pain) 0RF polyethylene glycol 3350 [Miralax] 17 gram/dose Powder 17 g PO DAILY PRN (Reason: Constipation) 0RF docusate sodium 100 mg Capsule 200 mg PO BID@ 0RF Lantus U-100 Insulin 100 unit/mL Solution 50 unit SUBCUT QAM 0RF Stiolto Respimat 2.5-2.5 mcg/actuation mist 2 puff inhalation QAM 0RF albuterol sulfate 2.5 mg /3 mL (0.083 %) Solution For Nebulization 2.5 mg inhalation Q6H PRN (Reason: Shortness Of Breath) 0RF lidocaine-prilocaine 2.5-2.5 % Cream 1 applic topical TID PRN (Reason: Pain) 0RF gentamicin 0.1 % Cream 1 applic TOPICAL TID PRN (Reason: unknown) 0RF cinacalcet 30 mg Tablet 30 mg PO .THREE TIMES A WEEK 0RF cholecalciferol (vitamin D3) 1,250 mcg (50,000 unit) Capsule 50,000 unit PO Q7D 0RF Rx Instructions: on sundays take for 12 weeks then takes 2,000 units once a day Eliquis 5 mg tablet 5 mg PO BID@,18 30 Days Qty: 60 0RF Discharge Orders: Discharge ED (Routine); Ordered 02/11/22 Ordered By: Kem Funez Referrals: Adria Artis, [Primary Care Provider] - Discharge Diet: Usual diet Discharge Activity: Increase activity as tolerated Patient Instructions: Shoulder Pain (ED), Facial Contusion (ED) Activity Restrictions/Additional Instructions: Thank you for visiting the emergency department. You were seen and evaluated for fall. No acute internal injuries were identified. You may use [id number]-[id number] medications for symptoms however please do not exceed the daily recommended dosage and please keep in mind that many namebrand medications contain the same active ingredients. If using NSAIDs I recommend making sure that you are continuing to take your PPI or H2 daxa (famotidine as listed on your medication list). Gentle wound care and topical medication such as Neosporin can be performed from the eyelid laceration. Please follow-up with your primary care provider. Please return to the emergency department for anything that you are concerned about and feel needs emergency department evaluation. Coding Level of Care Code ED Associate Director Finance for [facility]ure[facility] Chaudh[facility] Exam Comprehensive
--- NOTE | 2022-02-11 11:09 | XRR_ITS ---
PROCEDURE INFORMATION: Exam: XR Right Shoulder Exam date and time: 02/11/2022 11:34 AM Age: 76 years old Clinical indication: Pain and injury or trauma; Fall; Blunt trauma (contusions or hematomas); Shoulder; Right; Additional info: Fall, lateral shoulder/upper humerus pain TECHNIQUE: Imaging protocol: XR Right shoulder. Views: 2 or more views. COMPARISON: CT cervical spin wo con* [id number] 02/11/2022 11:32 AM FINDINGS: Bones/joints: Normal. Soft tissues: Normal. XR/XR shoulder RT min 2V* [id number] IMPRESSION: No acute findings.
--- NOTE | 2022-02-11 11:09 | CTR_ITS ---
PROCEDURE INFORMATION: Exam: CT Cervical Spine Without Contrast Exam date and time: 02/11/2022 11:32 AM Age: 76 years old Clinical indication: Injury or trauma; Fall; Blunt trauma; Additional info: Fall, right posterior neck pain TECHNIQUE: Imaging protocol: Computed tomography images of the cervical spine without contrast. Radiation optimization: All CT scans at this facility use at least one of these dose optimization techniques: automated exposure control; mA and/or kV adjustment per patient size (includes targeted exams where dose is matched to clinical indication); or iterative reconstruction. COMPARISON: DX XR cervical spine 4-5V [id number] 11/28/2020 10:35 AM RADIATION DOSE METRICS: Total DLP (mGy-cm): 1834.81 FINDINGS: Bones/joints: No acute fracture. Normal alignment. Discs/Spinal canal/Neural foramina: Chronic degenerative changes are present especially at the C5-C6 and C6-C7 level with osteophytes and mild spinal stenosis and neural foraminal narrowing. No severe spinal canal stenosis. Lungs: Lung apices are normal. Soft tissues: Unremarkable. CT/CT cervical spin wo con* [id number] IMPRESSION: No acute findings.
--- NOTE | 2022-02-11 11:09 | CTR_ITS ---
PROCEDURE INFORMATION: Exam: CT Head Without Contrast Exam date and time: 02/11/2022 11:25 AM Age: 76 years old Clinical indication: Injury or trauma; Fall; Blunt trauma (contusions or hematomas); Additional info: Fall on eliquis. Imaging repeated due to patient breathing motion TECHNIQUE: Imaging protocol: Computed tomography of the head without contrast. Radiation optimization: All CT scans at this facility use at least one of these dose optimization techniques: automated exposure control; mA and/or kV adjustment per patient size (includes targeted exams where dose is matched to clinical indication); or iterative reconstruction. COMPARISON: DX XR cervical spine 4-5V [id number] 11/28/2020 10:35 AM RADIATION DOSE METRICS: Total DLP (mGy-cm): 2278.38 FINDINGS: Brain: No intracranial hemorrhage, edema or other acute abnormalities are seen in the brain. There is generalized chronic atrophy with prominence of the ventricles and sulci. There is no mass effect or midline shift. Cerebral ventricles: The ventricles are prominent due to chronic atrophy. Paranasal sinuses: Visualized sinuses are unremarkable. No fluid levels. Mastoid air cells: Visualized mastoid air cells are well aerated. Bones/joints: Unremarkable. No acute fracture. Soft tissues: Unremarkable. CT/CT head wo con* [id number] IMPRESSION: No acute intracranial abnormality.
[2022-02-11 11:54] VITALS: BP 138/85; PULSE 63; O2SAT 92
[2022-02-11 12:21] VITALS: BP 138/85; PULSE 66; O2SAT 94
== END 2022-02-11 12:18 | disposition home or self-care (01) ==
PROVIDERS: Emergency Provider Emergency Medicine; PCP Emergency Medicine Emergency Medical Services
DX: S05.11XA Contusion of eyeball and orbital tissues, right eye, initial encounter (principal); S01.111A Laceration without foreign body of right eyelid and periocular area, initial encounter; S09.90XA Unspecified injury of head, initial encounter; W06.XXXA Fall from bed, initial encounter; R51.9 Headache, unspecified; Z79.01 Long term (current) use of anticoagulants; Z79.02 Long term (current) use of antithrombotics/antiplatelets
CPT/HCPCS: 70450; 72125; 73030; 99283

== ENCOUNTER 2022-04-26 04:27 | Inpatient (IN) | payer OTHER, MEDICARE, SELFPAY ==
[2022-04-26] VITALS (32 sets, daily range): BP systolic 125–144; BP diastolic 72–82; PULSE 60–77; RESP 12–31; TEMP 36.3–36.6; O2SAT 76–97; BMI 38.2
--- NOTE | 2022-04-26 04:35 | ECG_ITS ---
[facility] Test Date: 2022-04-26 Pat Name: Shon Mullen Department: Room: Gender: Male [employer]: : 1945 Requested By: Julia Pirere Order Number: [id number] Dwight MD: Jairo Johnson M.D. Measurements Intervals Maribel Rate: 71 P: 216 WI: 259 QRS: -78 QRSD: 232 T: 93 QT: 484 QTc: 526 Interpretive Statements ELECTRONIC VENTRICULAR PACEMAKER Compared to ECG 08/10/2021 17:24:58 Prolonged QT interval no longer present Electronically Signed On 04-26-2022 13:12:07 CDT by Jairo Johnson M.D. [id number]
--- NOTE | 2022-04-26 04:36 | XRR_ITS ---
PROCEDURE INFORMATION: Exam: XR Chest Exam date and time: 04/26/2022 4:53 AM Age: 77 years old Clinical indication: Cough and shortness of breath; Additional info: SOB TECHNIQUE: Imaging protocol: Radiologic exam of the chest. Views: 1 view. COMPARISON: CR XR chest 1V portable [id number] 08/13/2021 8:50 AM FINDINGS: Lungs: There are normal lung volumes. Qaii-uv-zovjncoz right perihilar and basilar interstitial and patchy airspace opacities are seen with small right pleural effusion. These findings are suspicious for pneumonia. Recommend correlation with clinical findings and follow-up until resolution. Minimal left perihilar interstitial prominence is seen, which may represent pulmonary vascular congestion. Pleural spaces: There is no left pleural effusion. There is no pneumothorax. Heart/Mediastinum: There is unchanged mild enlargement of the cardiac silhouette. Left subclavian ventricular pacemaker is once again seen. There is a mildly tortuous thoracic aorta. The trachea is in the midline. Bones/joints: No acute abnormalities. Soft tissues: Multiple external densities are seen overlying the chest, limiting assessment. XR/XR chest 1V portable [id number] IMPRESSION: 1. Rcjm-my-pamadjtq right perihilar and basilar interstitial and patchy airspace opacities with small right pleural effusion. These findings are suspicious for pneumonia. Recommend correlation with clinical findings and follow-up until resolution. 2. Unchanged mild cardiomegaly.
--- NOTE | 2022-04-26 04:44 | PC.NURSE ---
respiratory at bedside placing patient on Bipap machine . settings 16/8 rate 12 , and 40% o2.
--- NOTE | 2022-04-26 04:50 | ED_ITS ---
HPI - SOB/Dyspnea General: Chief Complaint: Shortness of Breath/Dyspnea Stated Complaint: low O2 Time Seen by Provider: 04/26/22 04:29 Source: patient Mode of arrival: ambulatory Limitations: no limitations History of Present Illness: HPI Narrative: 77-year-old male has a history of COPD along with congestive heart failure and end-stage renal disease. He states he gets dialysis on Tuesday did receive his dialysis on Tuesday states he woke up this morning with increasing shortness of breath he states he wears 4 L of oxygen at home and his pulse ox was in the low 70s pulse ox is 76% here on his 4 L as well. He states that he has had a slight cough he states he had a COVID test last week that was negative he has had 2 home positive his he is states he has not felt well over the last 3 to 4 days. Denies any chest pain denies any fevers. Associated symptoms: Deny abdominal pain, chest pain, fever(s), nausea or vomit ing Review of Systems Const: Denies: fever(s), chills, body aches or change in appetite Eyes: Denies: blurry vision or eye discomfort ENMT: Denies: throat pain or dental pain Card: Denies: chest pain Resp: Reports: dyspnea and non-productive cough GI: Denies: abdominal pain, nausea, vomiting or diarrhea : Denies: dysuria Musc: Denies: neck pain or back pain Skin/Breast: Denies: rash Neuro: Denies: headache(s) Psych: Denies: depression Nas/Lymph: Denies: easy bruising All/Imm: Denies: urticaria PFSH ED PFSH: Medical History Accelerated essential hypertension Anemia Atrial fibrillation CAD (coronary artery disease) CHF (congestive heart failure) Chronic anticoagulation Diabetes mellitus ESRD (end stage renal disease) Heart failure Hypercholesteremia LV dysfunction Myocardial infarct Neuropathy MARAL (obstructive sleep apnea) Pacemaker Pneumonia Renal failure Respiratory failure with hypoxia Restrictive lung disease Small airways disease Surgical History Hemodialysis access, AV graft History of colonoscopy with polypectomy 2020 Peritoneal dialysis status (03/02/21) removed S/P cardiac pacemaker procedure S/P cataract surgery S/P dialysis catheter insertion S/P PTCA (percutaneous transluminal coronary angioplasty) Family History Mother Heart disease Social History Smoking and tobacco status: former smoker Quit status (tobacco): has quit using tobacco Year quit tobacco: 1984 Former quit date comment: 3PPD x 17 Years Second hand smoke exposure: No Smoking risk assessment/counseling performed?: No Alcohol intake: never Counseling given: No Counseling given: No Lives independently: Yes Household members: spouse Housing: House Marital status: service: Yes Current occupational status: retired Pets and animals: No History of recent travel: No Current gender identity: Male Physical Exam Const: COMMON NORMALS: patient oriented x3 GENERAL APPEARANCE: in distress and ill appearing HENMT: COMMON NORMALS: normocephalic and atraumatic HEAD & SCALP: normocephalic and atraumatic Eye: COMMON NORMALS: Equal, round and reactive pupils present and EOMs intact bilaterally PUPIL: Yes Equal, round and reactive pupils present Neck/C-Spine: COMMON NORMALS: full ROM and supple Chest: COMMONS NORMALS: normal inspection of the chest and normal palpation of entire chest wall Resp: EFFORT & INSPECTION: Yes tachypneic, Yes respiratory distress and Yes labored AUSCULTATION: wheezes Cardio: COMMON NORMALS: regular rate, regular rhythm and No murmurs present (Cardio) RATE: regular rate RHYTHM: regular rhythm GI: COMMON NORMALS: Normal to inspection, nondistended, normoactive bowel sounds present, Soft to palpation, non-tender and no masses PALPATION: Yes Soft to palpation Extremity: COMMON NORMALS: full ROM NARRATIVE EXTREMITY EXAM: 2+ edmea Neuro: COMMON NORMALS: patient oriented x3, moves all extremities and no focal motor deficits Psych: COMMON NORMALS: mental status grossly normal, Normal thought process present and cooperative THOUGHT PROCESS: Normal thought process present Skin: COMMON NORMALS: no rashes or lesions noted and no wounds GENERAL SKIN EXAM: no rashes or lesions noted Course Vital Signs: Vital signs: Vital Signs Temperature 97.7 F 04/26/22 04:39 Pulse Rate 62 04/26/22 04:44 Respiratory Rate 18 04/26/22 04:44 Blood Pressure 144/79 04/26/22 04:44 Pulse Oximetry 95 04/26/22 04:44 Oxygen Delivery Me thod 04/26/22 04:44 Oxygen Flow Rate 5 04/26/22 04:39 Fraction of Inspir ed Oxygen 40 04/26/22 04:44 MDM - SOB/Dyspnea Medical Decision Making Patient presents for shortness of breath he does have a history of CHF restrictive airway disease along with end-stage renal disease x-ray shows fluid overload patient is requiring BiPAP here doing well on BiPAP spoke to hospitalist who is going to see him in the ER admit at this time. He has a CO VID test pending white count is normal. Lab Data : 04/26/22 04:42 04/26/22 04:42 Labs/Radiology: Laboratory Results WBC 6.2 10^3/uL (4.0-10.0) 04/26/22 04:42 RBC 3.35 10^6/uL (4.1-5.3) L 04/26/22 04:42 Hgb 10.2 g/dL (11.7-16.6) L 04/26/22 04:42 Hct 31.8 % (42.0-52.0) L 04/26/22 04:42 MCV 94.9 fl (80-94) H 04/26/22 04:42 MCH 30.4 pg (28.0-34.0) 04/26/22 04:42 MCHC 32.1 g/dL (30.0-36.0) 04/26/22 04:42 RDW 17.1 % (12.1-15.1) H 04/26/22 04:42 Plt Count 137 10^3/cmm (130-400) 04/26/22 04:42 MPV 9.7 fL (7.4-10.4) 04/26/22 04:42 Neut % (Auto) 69.6 % 04/26/22 04:42 Lymph % (Auto) 12.6 % 04/26/22 04:42 Wilkin % (Auto) 13.3 % 04/26/22 04:42 Eos % (Auto) 3.6 % 04/26/22 04:42 Baso % (Auto) 0.3 % 04/26/22 04:42 Neut # (Auto) 4.30 10^3/uL (1.8-7.7) 04/26/22 04:42 Lymph # (Auto) 0.8 10^3/uL (0.8-4.8) 04/26/22 04:42 Wilkin # (Auto) 0.8 10^3/uL (0.2-0.9) 04/26/22 04:42 Eos # (Auto) 0.2 10^3/uL (0.0-0.8) 04/26/22 04:42 Baso # (Auto) 0.0 10^3/uL (0.0-0.1) 04/26/22 04:42 Nucleated RBC % (auto) 0 % 04/26/22 04:42 Nucleated RBCs # 0.0 /100WBC 04/26/22 04:42 PT 16.00 SECONDS (12.1-14.9) H 04/26/22 04:42 INR 1.24 (0.8-1.2) H 04/26/22 04:42 D-Dimer 0.72 ug/mIFEU (0-0.59) H 04/26/22 04:42 Specimen Type Arterial 04/26/22 04:45 Sample Site Radial, left 04/26/22 04:45 ABG pH 7.40 (7.35-7.45) 04/26/22 04:45 ABG pCO2 44.5 mmHg (35-45) 04/26/22 04:45 ABG pO2 77.9 mmHg (80.0-100.0) L 04/26/22 04:45 ABG HCO3 27.4 mmol/L (22-26) H 04/26/22 04:45 ABG Base Excess 2.2 mmol/L (-2.0-2.0) H 04/26/22 04:45 Carlito Test Pos 04/26/22 04:45 Hematocrit 31.5 % (42-52) L 04/26/22 04:45 O2 Delivery Device Bipap 04/26/22 04:45 FiO2 40.0 % 04/26/22 04:45 Special Deputy Sheriff ID shust 04/26/22 04:45 Sodium 129 mmol/L (136-145) L 04/26/22 04:42 Potassium 5.0 mmol/L (3.5-5.1) 04/26/22 04:42 Chloride 88 mmol/L (98-107) L 04/26/22 04:42 Carbon Dioxide 26 mmol/L (22-29) 04/26/22 04:42 Anion Gap 20.0 (5-19) H 04/26/22 04:42 BUN 59 mg/dL (8-23) H 04/26/22 04:42 Creatinine 5.8 mg/dL (0.7-1.2) H* 04/26/22 04:42 GFR Calculation Not Reportable 04/26/22 04:42 Glucose 142 mg/dL (65-115) H 04/26/22 04:42 Calculated Osmolality 287 mOsm/kg (285-295) 04/26/22 04:42 Calcium 8.8 mg/dL (8.5-10.5) 04/26/22 04:42 Total Bilirubin 0.3 mg/dL (0.15-1.2) 04/26/22 04:42 AST 14 U/L (0-40) 04/26/22 04:42 ALT 17 U/L (0-41) 04/26/22 04:42 Alkaline Phosphatase 73 IU/L (40-130) 04/26/22 04:42 Troponin T Baseline 124 ng/L (0-15) H* 04/26/22 04:42 NT-Pro-B Natriuret Pep 82820 pg/mL (0-450) H 04/26/22 04:42 Total Protein 7.2 g/dL (6.6-8.7) 04/26/22 04:42 Albumin 3.1 g/dL (3.5-5.2) L 04/26/22 04:42 Globulin 4.1 g/dL (1.3-4.6) 04/26/22 04:42 EKG Data EKG 1: I personally reviewed and interpreted this EKG as follows: EKG Interpretation Date: 04/26/22 EKG interpretation time: 04:35 Interpretation: paced rhythm hr [address] or t wave abnormalities qrs 232 qtc 506 Critical Care Time 2 Critical Care Time: Critical Care Time: Yes Total Critical Care Time: 40 Attestation: The high probability of a clinically significant, sudden or life threatening deterioration of the patient's resp system(s) required my full and direct attention, intervention and personal management. The critical care time is as shown. This time is in addition to time spent performing any reported procedures but includes the following: [x] Data and vital sign review and interpretation [x] Patient assessment, examination and intervention [x] Documentation [x] Medication orders and management Discharge Plan Discharge Patient Disposition: Admitted As Inpatient Clinical Impression: Congestive heart failure, End-stage renal disease (ESRD), Acute respiratory failure with hypoxemia Condition: Stable Prescriptions: No Action atorvastatin 80 mg tablet 80 mg PO DAILY@1800 nifedipine 60 mg tablet extended release 60 mg PO DAILY@09 All Day Allergy (cetirizine) 10 mg capsule 10 mg PO DAILY@09 nitroglycerin 0.4 mg tablet, sublingual 0.4 mg SUBLINGUAL Q5M PRN (Reason: Chest Pain) Mircera 30 mcg/0.3 mL syringe 60 mcg SUBCUT Q14D gabapentin 300 mg capsule 300 mg PO BID@09,18 sevelamer carbonate [Renvela] 800 mg tablet 2,400 mg PO TID@,,18 omega-3 fatty acids [Fish Oil Concentrate] 1,000 mg capsule 1,000 mg PO BID@,18 spironolactone 25 mg tablet 25 mg PO DAILY@09 albuterol sulfate 90 mcg/actuation HFA aerosol inhaler 2 puff inhalation Q6H PRN (Reason: shortness of breath or wheezing) 30 Days Qty: 8.5 3RF famotidine [Pepcid] 20 mg tablet 20 mg PO BID@,18 Saxenda 3 mg/0.5 mL (18 mg/3 mL) pen injector 3 mg SUBCUT DAILY PRN (Reason: weight loss) Rx Instructions: see pharmacy comments ( states not taken since oct) clopidogrel 75 mg tablet 75 mg PO DAILY Stiolto Respimat 2.5-2.5 mcg/actuation mist 2 puff inhalation DAILY Daliresp 250 mcg tablet 250 mcg PO DAILY cholecalciferol (vitamin D3) 50 mcg (2,000 unit) capsule 50 mcg PO DAILY isosorbide mononitrate 30 mg tablet extended release 24 hr 15 mg PO BID Qty: 90 3RF allopurinol 100 mg Tablet 100 mg PO DAILY PRN (Reason: Gout) oxycodone-acetaminophen 5-325 mg Tablet 1 tab PO BID PRN (Reason: Pain) polyethylene glycol 3350 [Miralax] 17 gram/dose Powder 17 g PO DAILY PRN (Reason: Constipation) docusate sodium 100 mg Capsule 200 mg PO BID@ Lantus U-100 Insulin 100 unit/mL Solution 50 unit SUBCUT QAM Stiolto Respimat 2.5-2.5 mcg/actuation mist 2 puff inhalation QAM albuterol sulfate 2.5 mg /3 mL (0.083 %) Solution For Nebulization 2.5 mg inhalation Q6H PRN (Reason: Shortness Of Breath) lidocaine-prilocaine 2.5-2.5 % Cream 1 applic topical TID PRN (Reason: Pain) gentamicin 0.1 % Cream 1 applic TOPICAL TID PRN (Reason: unknown) cinacalcet 30 mg Tablet 30 mg PO .THREE TIMES A WEEK cholecalciferol (vitamin D3) 1,250 mcg (50,000 unit) Capsule 50,000 unit PO Q7D Rx Instructions: on sundays take for 12 weeks then takes 2,000 units once a day Eliquis 5 mg tablet 5 mg PO BID@ 30 Days Qty: 60 0RF Referrals: Adria Artis DO [Primary Care Provider] - Coding Level of Care Code ED [employer] Workflow Consultant for [employer]g Fwd Exam Comprehensive
[2022-04-26 04:52] LABS: Basophils % 0.3 %; Eosinophils # 0.2 10^3/uL (0.0-0.8); Eosinophils % 3.6 %; Hematocrit 31.8 % (42.0-52.0); Hemoglobin 10.2 g/dL (11.7-16.6); Lymphocytes # 0.8 10^3/uL (0.8-4.8); Lymphocytes % 12.6 %; Mean Corpuscular HGB Conc 32.1 g/dL (30.0-36.0); Mean Corpuscular Hemoglobin 30.4 pg (28.0-34.0); Mean Corpuscular Volume 94.9 fl (80-94); Mean Platelet Volume 9.7 fL (7.4-10.4); Monocytes # 0.8 10^3/uL (0.2-0.9); Monocytes % 13.3 %; Neutrophils % 69.6 %; Nucleated Red Blood Cells % 0 %; Platelet Count 137 10^3/cmm (130-400); Red Blood Count 3.35 10^6/uL (4.1-5.3); Red Cell Distribution Width 17.1 % (12.1-15.1); White Blood Count 6.2 10^3/uL (4.0-10.0)
[2022-04-26 04:58] LABS: ABG PCO2 44.5 mmHg (35-45); Arterial Blood Gas Hematocrit 31.5 % (42-52); Base Excess ABG 2.2 mmol/L (-2.0-2.0); Blood Gas Allen Test Pos; Blood Gas Sample Site Radial, left; Blood Gas Sample Type Arterial; HCO3 ABG 27.4 mmol/L (22-26); Oxygen Device BIPAP; PO2 ABG 77.9 mmHg (80.0-100.0)
[2022-04-26 05:04] LABS: INR 1.24 (0.8-1.2)
[2022-04-26 05:06] LABS: D Dimer 0.72 ug/mIFEU (0-0.59)
[2022-04-26 05:25] LABS: Alanine Aminotransferase 17 U/L (0-41); Albumin Level 3.1 g/dL (3.5-5.2); Alkaline Phosphatase 73 IU/L (40-130); Aspartate Amino Transferase 14 U/L (0-40); Blood Urea Nitrogen 59 mg/dL (8-23); Calcium 8.8 mg/dL (8.5-10.5); Carbon Dioxide 26 mmol/L (22-29); Chloride 88 mmol/L (98-107); Globulin 4.1 g/dL (1.3-4.6); Glucose 142 mg/dL (65-115); NT Pro B Type Natriuretic Pept 12164 pg/mL (0-450); Osmolality Calculated 287 mOsm/kg (285-295); Sodium 129 mmol/L (136-145); Total Bilirubin 0.3 mg/dL (0.15-1.2); Total Protein 7.2 g/dL (6.6-8.7)
[2022-04-26 05:29] LABS: Troponin(5th) Baseline 124 ng/L (0-15)
--- NOTE | 2022-04-26 06:11 | USCV_ITS ---
Shon Mullen Age: 77 Gender: M : 1945 Exam Date: 04/26/2022 10:05 Ordering Phys: Telly George MD Technologist: Abebe Chambers [place] [facility] [place]: sob BP: 143 / 72 HR: Rhythm: Sinus Technical Quality: Fair MEASUREMENTS (Male / Female) Normal Values 2D ECHO LV Diastolic Diameter PLAX 7.0 cm 4.2 - 5.9 / 3.9 - 5.3 cm LV Systolic Diameter PLAX 4.2 cm IVS Diastolic Thickness 1.2 cm 0.6 - 1.0 / 0.6 - 0.9 cm IVS Systolic Thickness 1.6 cm LVPW Diastolic Thickness 1.2 cm 0.6 - 1.0 / 0.6 - 0.9 cm LVPW Systolic Thickness 1.3 cm LVOT Diameter 2.1 cm LV Ejection Fraction 2D Teich 68.2 % LV Ejection Fraction MOD 2C 55.3 % LV Ejection Fraction 2C AL 55.6 % LA Diameter 4.3 cm Aorta at Sinotubular Diameter 2.5 cm M-MODE Aortic Annulus Diameter 4.1 cm LA Ao Ratio MM 1.3 MV E Point Septal Separation 1.8 cm DOPPLER AV Peak Velocity 152.0 cm/s LVOT Peak Velocity 88.0 cm/s AV Area Cont Eq vti 1.9 cm squared AV Area Cont Eq pk 2.0 cm squared MV Area PHT 5.0 cm squared Mitral E to A Ratio 2.0 MV E' Velocity 59.5 cm/s Mitral E to MV E' Ratio 13.6 Mitral E to LV E' Lateral Ratio 12.7 Mitral E to LV E' Septal Ratio 14.9 TR Peak Velocity 276.3 cm/s TR Peak Gradient 30.5 mmHg Right Atrial Pressure 3.0 mmHg Pulmonary Artery Systolic Pressu 33.5 mmHg PV Peak Velocity 115.0 cm/s FINDINGS Left Ventricle Normal left ventricular cavity size. Moderately decreased left ventricular systolic function. Left ventricular ejection fraction is estimated at 30 %. Moderate global left ventricular hypokinesis. Abnormal septal motion consistent with pacemaker. Right Ventricle Normal right ventricular size and systolic function. Right ventricular systolic pressure 33.5 mmHg. Pacemaker wire visualized in the right ventricle. Right Atrium Normal right atrial size. Left Atrium Mildly increased left atrial size. Mitral Valve Structurally normal mitral valve. No mitral valve stenosis. Trace mitral valve regurgitation. Aortic Valve Aortic valve not well visualized. No aortic valve stenosis. No aortic valve regurgitation. Tricuspid Valve Structurally normal tricuspid valve. Trace tricuspid valve regurgitation. Pulmonic Valve Pulmonic valve not well visualized. No pulmonary valve stenosis. Pericardium No pericardial effusion. Aorta Normal size aortic root and proximal ascending aorta. IVC Inferior vena cava not visualized. CONCLUSIONS 1. This is a technically difficult study. Optison was used per protocol. 2. Normal left ventricular cavity size. Moderately decreased left ventricular systolic function. Left ventricular ejection fraction is estimated at 30 %. Moderate global left ventricular hypokinesis. 3. Mildly increased left atrial size. 4. When compared to previous echocardiogram dated 07/13/2021, there may not have been any significant change. Anne Mendoza MD (Electronically Signed) Final Date: 26 April 2022 16:51 S
--- NOTE | 2022-04-26 06:11 | USCV_ITS ---
Shon Mullen Age: 77 Gender: M : 1945 Exam Date: 04/26/2022 10:23 Ordering Phys: Telly George MD Technologist: Abebe Chambers [place] [facility] [place]: DVT, sob PROCEDURES: Venous duplex imaging was performed in bilateral lower extremities. The venous duplex Doppler examination of both lower extremities was performed in the standard fashion. The following venous structures were evaluated: common femoral vein, profunda vein, proximal portion of the greater saphenous vein, superficial femoral vein, and the popliteal vein. FINDINGS: Normal 2-D Doppler and augmentation and compressibility throughout the lower extremity venous structures. Additional imaging through the proximal calf veins also reveals no thrombus. Limited evaluation of the greater saphenous vein is patent with no thrombus.. CONCLUSIONS No evidence of right lower extremity DVT. No evidence of left lower extremity DVT. Mc Lea MD (Electronically Signed) Final Date: 26 April 2022 12:23 S
--- NOTE | 2022-04-26 06:21 | P.HP_ITS ---
Providers/Chief Complaint Primary Care Provider: Adria Artis DO Chief Complaint: low O2 History of Present Illness Shon Mullen is a 77 year old male Review of Systems Const: Denies: fever(s) Card: Reports: dyspnea on exertion; Denies: chest pain, palpitations or edema Resp: Reports: dyspnea and non-productive cough GI: Denies: abdominal pain : Denies: difficulty urinating Medications/Allergies Home Medications Medication Instructions Recorded Confirmed Last Taken Type atorvastatin 80 mg tablet 80 mg PO DAILY@1800 10/02/19 11/11/21 08/09/21 History cetirizine 10 mg capsule (All Day 10 mg PO DAILY@10/02/19 11/11/21 08/09/21 History Allergy (cetirizine)) nifedipine 60 mg tablet,extended 60 mg PO DAILY@10/02/19 11/11/21 08/09/21 History release nitroglycerin 0.4 mg sublingual 0.4 mg sublingual Q5M PRN Chest 10/02/1909/18/20 History tablet Pain epoetin beta, methoxy peg 30 60 mcg SUBCUT Q14D 11/07/19 11/11/21 07/03/21 History mcg/0.3 mL injection syringe (Mircera) gabapentin 300 mg capsule 300 mg PO BID@11/07/19 11/11/21 08/09/21 History sevelamer carbonate 800 mg tablet 2,400 mg PO TID@,,11/07/19 11/11/21 08/09/21 History (Renvela) famotidine 20 mg tablet (Pepcid) 20 mg PO BID@04/16/20 11/11/21 08/09/21 History liraglutide (weight loss) 3 mg/0.5 3 mg SUBCUT DAILY PRN weight loss 04/16/20 11/11/21 01/31/21 History mL (18 mg/3 mL) subcut pen injector (Saxenda) omega-3 fatty acids 1,000 mg 1,000 mg PO BID@,04/16/20 11/11/21 08/09/21 History capsule (Fish Oil Concentrate) spironolactone 25 mg tablet 25 mg PO DAILY@07/24/20 11/11/21 08/09/21 History docusate sodium 100 mg capsule 200 mg PO BID@09,18 09/17/20 11/11/21 08/09/21 History allopurinol 100 mg tablet 100 mg PO DAILY PRN Gout 11/11/20 11/11/21 01/31/21 History oxycodone-acetaminophen 5 mg-325 1 tab PO BID PRN Pain 11/11/20 11/11/21 03/01/21 History mg tablet polyethylene glycol 3350 17 17 g PO DAILY PRN Constipation 11/11/20 11/11/21 03/01/21 History gram/dose oral powder (Miralax) albuterol sulfate 90 mcg/actuation 2 puff inhalation Q6H PRN 01/02/21 11/11/21 02/23/21 Rx aerosol inhaler shortness of breath or wheezing 30 days #8.5 grams albuterol sulfate 2.5 mg inhalation Q6H PRN 07/13/21 11/11/21 Unknown History Shortness Of Breath cholecalciferol (vitamin D3) 1,250 50,000 unit PO Q7D 07/13/21 11/11/21 08/09/21 History mcg (50,000 unit) capsule cinacalcet 30 mg tablet 30 mg PO .THREE TIMES A WEEK see 07/13/21 11/11/21 Unknown History pharmacy comments gentamicin 0.1 % topical cream 1 applic topical TID PRN unknown 07/13/21 11/11/21 Unknown History insulin glargine 100 unit/mL 50 unit SUBCUT QAM 07/13/21 11/11/21 08/09/21 History subcutaneous solution (Lantus U-100 Insulin) lidocaine-prilocaine 2.5 %-2.5 % 1 applic topical TID PRN Pain 07/13/21 11/11/21 Unknown History topical cream tiotropium 2.5 mcg-olodaterol 2.5 2 puff inhalation QAM 07/13/21 11/11/21 08/09/21 History mcg/actuation mist for inhalation (Stiolto Respimat) apixaban 5 mg tablet (Eliquis) 5 mg PO BID@09,18 30 days #60 tabs 07/18/21 11/11/21 08/09/21 Rx isosorbide mononitrate 30 mg 15 mg PO BID #90 tabs 08/05/21 11/11/21 08/09/21 Rx tablet,extended release 24 hr cholecalciferol (vitamin D3) 50 50 mcg PO DAILY 11/11/21 11/11/21 Unknown History mcg (2,000 unit) capsule clopidogrel 75 mg tablet 75 mg PO DAILY 11/11/21 11/11/21 Unknown History roflumilast 250 mcg tablet 250 mcg PO DAILY 11/11/21 11/11/21 Unknown History (Daliresp) tiotropium 2.5 mcg-olodaterol 2.5 2 puff inhalation DAILY 11/11/21 11/11/21 Unknown History mcg/actuation mist for inhalation (Stiolto Respimat) Allergies Allergy/AdvReac Type Severity Reaction Status Date / Time ciprofloxacin [From Cipro] Allergy rash Verified 11/11/21 09:27 felodipine Allergy rash Verified 11/11/21 09:27 sulfamethoxazole Allergy rash Verified 11/11/21 09:27 [From Septra] trimethoprim [From Septra] Allergy rash Verified 11/11/21 09:27 PFSH Acute PFSH: Medical History Accelerated essential hypertension Anemia Atrial fibrillation CAD (coronary artery disease) CHF (congestive heart failure) Chronic anticoagulation Diabetes mellitus ESRD (end stage renal disease) Heart failure Hypercholesteremia LV dysfunction Myocardial infarct Neuropathy MARAL (obstructive sleep apnea) Pacemaker Pneumonia Renal failure Respiratory failure with hypoxia Restrictive lung disease Small airways disease Surgical History Hemodialysis access, AV graft History of colonoscopy with polypectomy 2020 Peritoneal dialysis status (03/02/21) removed S/P cardiac pacemaker procedure S/P cataract surgery S/P dialysis catheter insertion S/P PTCA (percutaneous transluminal coronary angioplasty) Family History Mother Heart disease Social History Smoking and tobacco status: former smoker Quit status (tobacco): has quit using tobacco Year quit tobacco: 1984 Former quit date comment: 3PPD x 17 Years Second hand smoke exposure: No Smoking risk assessment/counseling performed?: No Alcohol intake: never Counseling given: No Counseling given: No Lives independently: Yes Household members: spouse Housing: House Marital status: service: Yes Current occupational status: retired Pets and animals: No History of recent travel: No Current gender identity: Male Vitals/I&O/Wt Last Vital Signs Temp 97.7 F 04/26/22 04:39 Pulse 68 04/26/22 05:05 Resp 18 04/26/22 04:44 BP 144/79 04/26/22 04:44 Pulse Ox 94 04/26/22 05:05 O2 Del Method 04/26/22 04:44 O2 Flow Rate 5 04/26/22 04:39 FiO2 40 04/26/22 05:05 Weight last 48 hrs Weight 124.3 kg Physical Exam Const: COMMON NORMALS: no acute distress and patient oriented x3 OTHER: Currently on BiPAP HENMT: COMMON NORMALS: normocephalic HEAD & SCALP: normocephalic Eye: COMMON NORMALS: Equal, round and reactive pupils present and EOMs intact bilaterally Neck/C-Spine: COMMON NORMALS: no JVD Resp: COMMON NORMALS: normal respiratory effort, No retractions and No use of accessory muscles AUSCULTATION: diminished lung sounds Cardio: COMMON NORMALS: no JVD, regular rate, regular rhythm, S1 normal heart sound present and S2 normal heart sound present RATE: regular rate RHYTHM: regular rhythm HEART SOUNDS: S1 normal heart sound present and S2 normal heart sound present GI: COMMON NORMALS: Normal to inspection, nondistended, normoactive bowel sounds present, Soft to palpation, non-tender, No hepatosplenomegaly present, no masses and no bruits PALPATION: Yes Soft to palpation and Yes No hepatosplenomegaly present Extremity: COMMON NORMALS: no calf tenderness and no pedal edema Neuro: COMMON NORMALS: patient oriented x3, CN's II-XII intact bilaterally and moves all extremities Psych: COMMON NORMALS: mental status grossly normal Data : 04/26/22 04:42 04/26/22 04:42 A&P Assessment and plan (1) Acute respiratory failure with hypoxemia: Status: Acute (2) Congestive heart failure: Status: Acute (3) End-stage renal disease (ESRD): Status: Acute (4) Diabetes mellitus: Status: Acute (5) Pneumonia: Status: Acute (6) NSTEMI (non-ST elevated myocardial infarction): Status: Acute (7) COVID-19: Status: Acute Plan Acute hypoxic respiratory failure -Secondary to COVID-19, secondary bacterial pneumonia, fluid overload Plan -Admit to general medical floors -Continue BiPAP -Monitor respiratory status closely -Broad-spectrum antibiotic therapy vancomycin and Zosyn -Sputum cultures blood cultures, MRSA PCR -Darin has received Solu-Medrol in the emergency room for today -Given his acute renal failure, will hold off on remdesivir, however if symptomatology worsens we will consider giving a 5-day course -Elevated BNP, evidence of fluid overload, nephrology consulted will receive inpatient dialysis -Pro-Supa, CRP, CT of the chest, cardiac echo, venous ultrasound -Full code -Eliquis for DVT prophylaxis History of restrictive lung disease/small airway disease, continue BiPAP, steroids as above NSTEMI -Elevated troponin, 124 -No chest pain complaints -Serial EKGs, troponins, telemetry monitoring Systolic CHF -In exacerbation, elevated BNP, fluid overload -We will received inpatient dialysis -Cardiac echo, telemetry monitoring Type 2 diabetes mellitus, Lantus 20 units daily a.m., low-dose sliding scale Atrial fibrillation on exacerbation, continue Eliquis CAD, cath in 2020 1. There is severe? coronary artery disease with two vessel disease. ? 2. We tried to attempt for intervention to the RCA however due to poor quality images secondary to Auditing Specialist setting, we deferred the intervention as I did not have surgical backup at the same time images qualities but not optimal therefore we will bring patient back for PCI to RCA later.? Continue optimal medical management. -underwent angioplasty in [facility] Hyponatremia, serum sodium 129, secondary to CHF, and renal disease, monitor Attestations Medical Necessity Statement*: Patient requires hospitalization, inpatient, greater than 2 midnights, for hypoxia, shortness of breath Coding Level of Care Code Acute Thermal Spray Operator for [facility] Fwd Diagnoses Acute respiratory failure with hypoxemia J96.01 Congestive heart failure I50.9 End-stage renal disease (ESRD) N18.6 Diabetes mellitus E11.9 Pneumonia J18.9 NSTEMI (non-ST elevated myocardial infarction) I21.4 COVID-19 U07.1
--- NOTE | 2022-04-26 06:24 | CTR_ITS ---
PROCEDURE INFORMATION: Exam: CT Chest Without Contrast; Diagnostic Exam date and time: 04/26/2022 6:54 AM Age: 77 years old Clinical indication: Shortness of breath; Additional info: Covid 19 TECHNIQUE: Imaging protocol: Diagnostic computed tomography of the chest without contrast. Radiation optimization: All CT scans at this facility use at least one of these dose optimization techniques: automated exposure control; mA and/or kV adjustment per patient size (includes targeted exams where dose is matched to clinical indication); or iterative reconstruction. COMPARISON: CT chest wo con [id number] 08/10/2021 1:31 PM RADIATION DOSE METRICS: Total DLP (mGy-cm): 974.65 FINDINGS: Trachea: The airway appears unremarkable. Lungs: There are normal lung volumes. Unchanged small to medium-sized right pleural effusion is seen with subpulmonic component. Increased right lower lobe small wedge-shaped area of consolidation is seen with air bronchograms. This may represent compressive atelectasis, although pneumonia cannot be excluded. Unchanged mild patchy ground-glass opacities are seen in the left lower lobe dating back to August 10, 2021. These are nonspecific findings, which may be related to post acute COVID-19 syndrome or nonspecific interstitial pneumonitis. Minimal bilateral upper lobe bronchovascular prominence is also seen. Pleural spaces: No left pleural effusion or pneumothorax. Heart: There is unchanged mild cardiomegaly. Pacemaker leads are seen in the heart. Severe coronary arterial atherosclerotic vascular calcifications are seen. No pericardial effusion. Lymph nodes: No enlarged mediastinal lymph nodes. Calcified right paratracheal lymph nodes, representing old granulomatous disease. Vasculature: Moderate atherosclerotic vascular calcifications of the thoracic aorta are seen. No thoracic aortic aneurysm. Bones/joints: Small degenerative osteophytes are seen throughout the thoracic spine. Moderate mid to lower thoracic spine degenerative disc disease changes are seen. There is osteopenia. Soft tissues: Unremarkable. Other findings: The visualized upper abdomen shows a tiny hiatal hernia. Descending colonic diverticula are incidentally noted. CT/CT chest wo con [id number] IMPRESSION: 1. Unchanged small to medium-sized right pleural effusion with subpulmonic component. Increased right lower lobe small wedge-shaped area of consolidation with air bronchograms. This may represent compressive atelectasis, although pneumonia cannot be excluded. Unchanged mild patchy ground-glass opacities in the left lower lobe dating back to August 10, 2021. These are nonspecific findings, which may be related to post acute COVID-19 syndrome or nonspecific interstitial pneumonitis. 2. Unchanged mild cardiomegaly. Pacemaker leads seen in the heart. Severe coronary arterial atherosclerotic vascular calcifications.
[2022-04-26 06:34] LABS: Adenovirus Not Detected (NOT DETECT); Chlamydia Pneumoniae Not Detected (NOT DETECT); Coronavirus 229E,HKU1,NL63,OC4 Not Detected (NOT DETECT); Human Metapneumovirus Not Detected (NOT DETECT); Human Rhinovirus/Enterovirus Not Detected (NOT DETECT); Influenza A Not Detected (NOT DETECT); Influenza A H1 Not Detected (NOT DETECT); Influenza A H1-2009 Not Detected (NOT DETECT); Influenza A H3 Not Detected (NOT DETECT); Influenza B Not Detected (NOT DETECT); Mycoplasma Pneumoniae Not Detected (NOT DETECT); Parainfluenza Virus Type 1 Not Detected (NOT DETECT); Parainfluenza Virus Type 2 Not Detected (NOT DETECT); Parainfluenza Virus Type 3 Not Detected (NOT DETECT); Parainfluenza Virus Type 4 Not Detected (NOT DETECT); Respiratory Syncytial Virus A Not Detected (NOT DETECT); Respiratory Syncytial Virus B Not Detected (NOT DETECT); SARS-COV-2 Detected (NOT DETECT)
[2022-04-26 06:43] LABS: C Reactive Protein 78.1 mg/L (0.0-4.9)
--- NOTE | 2022-04-26 06:45 | ECG_ITS ---
[facility] Test Date: 2022-04-26 Pat Name: Shon Mullen Department: Room: Gender: Male Architectural Model Maker: : 1945 Requested By: Telly George Order Number: [id number] Dwight MD: Jairo Johnson M.D. Measurements Intervals [place] Rate: 60 P: FL: QRS: -77 QRSD: 233 T: 106 QT: 548 QTc: 548 Interpretive Statements ELECTRONIC VENTRICULAR PACEMAKER Compared to ECG 04/26/2022 04:35:13 No significant changes Electronically Signed On 04-26-2022 13:11:49 CDT by Jairo Johnson M.D. [id number]
--- NOTE | 2022-04-26 06:48 | PM.CONSULT ---
Providers/Reason For Consult Consulting Physician/Specialty*: eugenia jurado md/ telenephrology Reason for Consult*: ESRD care Requesting Physician: DR Marvin George Attending Physician: Dr Marvin George Primary Care Provider: Adria Artis DO History of Present Illness History of Present Illness Shon Mullen is a 77 year old male h/o ESRD, HTN, CAD, CHF EF 38%, COPD, MARAL and bipap dependent, DM, obesity. pt here w/ severe sob, weakness, cough. he was dx w/ volume overload of CHF/ ESRD and Q of COVID-19 pna. renal called for dialysis care as pt on bipap Review of Systems Narrative: weak, sob, nausea, orthopnea, COBIAN. Medications/Allergies Home Medications Medication Instructions Recorded Confirmed Last Taken Type atorvastatin 80 mg tablet 80 mg PO DAILY@1800 10/02/19 11/11/21 08/09/21 History cetirizine 10 mg capsule (All Day 10 mg PO DAILY@10/02/19 11/11/21 08/09/21 History Allergy (cetirizine)) nifedipine 60 mg tablet,extended 60 mg PO DAILY@10/02/19 11/11/21 08/09/21 History release nitroglycerin 0.4 mg sublingual 0.4 mg sublingual Q5M PRN Chest 10/02/19 11/11/21 09/18/20 History tablet Pain epoetin beta, methoxy peg 30 60 mcg SUBCUT Q14D 11/07/19 11/11/21 07/03/21 History mcg/0.3 mL injection syringe (Mircera) gabapentin 300 mg capsule 300 mg PO BID@11/07/19 11/11/21 08/09/21 History sevelamer carbonate 800 mg tablet 2,400 mg PO TID@,,11/07/19 11/11/21 08/09/21 History (Renvela) famotidine 20 mg tablet (Pepcid) 20 mg PO BID@,04/16/20 11/11/21 08/09/21 History liraglutide (weight loss) 3 mg/0.5 3 mg SUBCUT DAILY PRN weight loss 04/16/20 11/11/21 01/31/21 History mL (18 mg/3 mL) subcut pen injector (Saxenda) omega-3 fatty acids 1,000 mg 1,000 mg PO BID@04/16/20 11/11/21 08/09/21 History capsule (Fish Oil Concentrate) spironolactone 25 mg tablet 25 mg PO DAILY@07/24/20 11/11/21 08/09/21 History docusate sodium 100 mg capsule 200 mg PO BID@09/17/20 11/11/21 08/09/21 History allopurinol 100 mg tablet 100 mg PO DAILY PRN Gout 11/11/20 11/11/21 01/31/21 History oxycodone-acetaminophen 5 mg-325 1 tab PO BID PRN Pain 11/11/20 11/11/21 03/01/21 History mg tablet polyethylene glycol 3350 17 17 g PO DAILY PRN Constipation 11/11/20 11/11/21 03/01/21 History gram/dose oral powder (Miralax) albuterol sulfate 90 mcg/actuation 2 puff inhalation Q6H PRN 01/02/21 11/11/21 02/23/21 Rx aerosol inhaler shortness of breath or wheezing 30 days #8.5 grams albuterol sulfate 2.5 mg inhalation Q6H PRN 07/13/21 11/11/21 Unknown History Shortness Of Breath cholecalciferol (vitamin D3) 1,250 50,000 unit PO Q7D 07/13/21 11/11/21 08/09/21 History mcg (50,000 unit) capsule cinacalcet 30 mg tablet 30 mg PO .THREE TIMES A WEEK see 07/13/21 11/11/21 Unknown History pharmacy comments gentamicin 0.1 % topical cream 1 applic topical TID PRN unknown 07/13/21 11/11/21 Unknown History insulin glargine 100 unit/mL 50 unit SUBCUT QAM 07/13/21 11/11/21 08/09/21 History subcutaneous solution (Lantus U-100 Insulin) lidocaine-prilocaine 2.5 %-2.5 % 1 applic topical TID PRN Pain 07/13/21 11/11/21 Unknown History topical cream tiotropium 2.5 mcg-olodaterol 2.5 2 puff inhalation QAM 07/13/21 11/11/21 08/09/21 History mcg/actuation mist for inhalation (Stiolto Respimat) apixaban 5 mg tablet (Eliquis) 5 mg PO BID@,18 30 days #60 tabs 07/18/21 11/11/21 08/09/21 Rx isosorbide mononitrate 30 mg 15 mg PO BID #90 tabs 08/05/21 11/11/21 08/09/21 Rx tablet,extended release 24 hr cholecalciferol (vitamin D3) 50 50 mcg PO DAILY 11/11/21 11/11/21 Unknown History mcg (2,000 unit) capsule clopidogrel 75 mg tablet 75 mg PO DAILY 11/11/21 11/11/21 Unknown History roflumilast 250 mcg tablet 250 mcg PO DAILY 11/11/21 11/11/21 Unknown History (Daliresp) tiotropium 2.5 mcg-olodaterol 2.5 2 puff inhalation DAILY 11/11/21 11/11/21 Unknown History mcg/actuation mist for inhalation (Stiolto Respimat) Allergies Allergy/AdvReac Type Severity Reaction Status Date / Time ciprofloxacin [From Cipro] Allergy rash Verified 11/11/21 09:27 felodipine Allergy rash Verified 11/11/21 09:27 sulfamethoxazole Allergy rash Verified 11/11/21 09:27 [From Septra] trimethoprim [From Septra] Allergy rash Verified 11/11/21 09:27 PFSH Acute PFSH: Medical History Accelerated essential hypertension Anemia Atrial fibrillation CAD (coronary artery disease) CHF (congestive heart failure) Chronic anticoagulation Diabetes mellitus ESRD (end stage renal disease) Heart failure Hypercholesteremia LV dysfunction Myocardial infarct Neuropathy MARAL (obstructive sleep apnea) Pacemaker Pneumonia Renal failure Respiratory failure with hypoxia Restrictive lung disease Small airways disease Surgical History Hemodialysis access, AV graft History of colonoscopy with polypectomy 2020 Peritoneal dialysis status (03/02/21) removed S/P cardiac pacemaker procedure S/P cataract surgery S/P dialysis catheter insertion S/P PTCA (percutaneous transluminal coronary angioplasty) Family History Mother Heart disease Social History Smoking and tobacco status: former smoker Quit status (tobacco): has quit using tobacco Year quit tobacco: 1984 Former quit date comment: 3PPD x 17 Years Second hand smoke exposure: No Smoking risk assessment/counseling performed?: No Alcohol intake: never Counseling given: No Counseling given: No Lives independently: Yes Household members: spouse Housing: House Marital status: service: Yes Current occupational status: retired Pets and animals: No History of recent travel: No Current gender identity: Male Vitals/I&O/Wt Last Vital Signs Temp 97.7 F 04/26/22 04:39 Pulse 68 04/26/22 05:05 Resp 18 04/26/22 04:44 BP 144/79 04/26/22 04:44 Pulse Ox 94 04/26/22 05:05 O2 Del Method 04/26/22 04:44 O2 Flow Rate 5 04/26/22 04:39 FiO2 40 04/26/22 05:05 Weight last 48 hrs Weight 124.3 kg Physical Exam Narrative: sob, uncomfortable on bipap, obese man heent= nc/at, eomi neck obese lungs rales, wheezes and crackles b/l heart reg, no rub abd soft, distended, + bs ext no edema RUE AVF w/ thrill and bruit neuro- a,a, o x 3 Data : 04/26/22 04:42 04/26/22 04:42 A&P Assessment and plan (1) End-stage renal disease (ESRD): 77 yr old man 1. SARS- COVID-19 pna- can give renal dose remdesivir and steroids 2. ESRD- sob, hyperkalemia- emergenct hd- 4 hrs, 2k, remove 3l as daniel via avf 3. MARAL/ COPD on bipap 4. hgb okay 5. hyponatremia from renal disease 6. mild hyperkalemia 7. CHF w/ elevated bipap- monitor w/ dialysis seen and examined w/ rN- telehealth visit informed consent for dialysis and telehealth visit obtained from pt Status: Acute Plan as above Consult Attestations Medical Necessity Statement: esrd, covid-19 pna, chf, sob on bipap Time Spent in Patient Care: Greater than 35 minutes (>than 50% of time spent in counselling and/or direct pt care on unit). Coding Level of Care Code Acute Page Makeup System Operator for [facility] [facility] Diagnoses End-stage renal disease (ESRD) N18.6
[2022-04-26 06:50] LABS: Procalcitonin 0.19 ng/mL (0-0.5)
[2022-04-26 07:16] LABS: Troponin 5 2HR Delta -8.8 ABS# (0-10)
[2022-04-26 07:17] LABS: Troponin 5 2HR 115.2 ng/L (0-15)
[2022-04-26 07:21] LABS: Uric Acid 6.1 mg/dL (3.4-7.0)
[2022-04-26 07:26] LABS: Hepatitis B Surface AB 11.4 (11.5-1000); Hepatitis B Surface Antigen Non-Reactive (Nonreactive); Hepatitis C Virus Antibody Non-Reactive (Nonreactive)
[2022-04-26] MEDS: ipratropium-albuterol 3 mL Neb INHALATION ×3 (08:24→20:43)
[2022-04-26] MEDS: budesonide 0.5 mg/2 mL Neb INHALATION ×2 (08:24→20:42)
[2022-04-26 08:50] LABS: Glucose Point of Care 185 mg/dL (70-110)
--- NOTE | 2022-04-26 08:52 | PC.PHAR ---
pt and pts verified pts medications-pt and pts states the pt takes eliquis 5mg bid and brilinta 90mg bid states the plavix was dced-pts states she is unsure if the daliresp 250-500mcg daily-pt states he has been out for 4 weeks-[facility]ing [facility] to verify 250-500mcg daily-pts states the pt hasnt taken the saxenda since oct-notes are made in the pharmacy comments-waiting for [facility] to [facility] list
--- NOTE | 2022-04-26 09:02 | PM.PN ---
Subjective Subjective: Shon reports he is breathing better than when he came in. He reports no chest discomfort. History and physical is reviewed, with the patient as well as in the chart. He reports he did not miss any dialysis last week, and is due for it today. He reports he is staying approximately at his dry weight. He has coughed up some yellowish sputum on occasion. No documented fevers at home. Medications: Reviewed: Yes Vitals/I&O/Wt Last Vital Signs Temp 97.7 F 04/26/22 04:39 Pulse 60 04/26/22 08:52 Resp 22 H 04/26/22 08:52 BP 144/79 04/26/22 04:44 Pulse Ox 92 04/26/22 08:52 O2 Del Method 04/26/22 08:52 O2 Flow Rate 15 04/26/22 08:52 FiO2 40 04/26/22 08:26 Weight last 48 hrs Weight 124.3 kg Physical Exam Narrative: General exam is a white male, on BiPAP, who takes is soft to get a drink here and there. He denies any discomfort. Neck is supple no lymphadenopathy or thyromegaly Cardiovascular regular rate and rhythm, 2/6 systolic murmur Lungs a few faint expiratory wheezes Abdomen is soft, positive bowel sounds. No obvious organomegaly exam was deferred Extremities no cyanosis clubbing or edema Skin no rash Data : 04/26/22 04:42 04/26/22 04:42 Other Labs: CT demonstrates small to medium size right pleural effusion, with small wedge-shaped area of consolidation. This was unchanged from previous CT. Micro: Microbiology 04/26/22 06:42 Blood Culture - Preliminary Blood SPECIMEN COLLECTED 04/26/22 06:38 Blood Culture - Preliminary Blood SPECIMEN COLLECTED A&P Assessment and plan (1) COVID-19: Tested positive at home on Tuesday. Hard to know exactly when symptoms started. Recommend quarantine for 10 days Initiate remdesivir, renally dosed Dexamethasone IV Otherwise supportive care Status: Acute (2) Acute respiratory failure with hypoxemia: Secondary to Covid 19. Some element of fluid overload as well consistent with acute systolic heart failure Initiation of dialysis will help significantly. Requiring BiPAP initially with significant increased work of breathing. Wean BiPAP off, and FiO2 as tolerated. Status: Acute (3) End-stage renal disease (ESRD): Appreciate nephrology consultation for initiated addition of dialysis Status: Acute (4) Pneumonia: Possible consolidation Procalcitonin negative Continue Zosyn Vancomycin likely not needed. Will discontinue Blood and sputum cultures pending MRSA PCR ordered Status: Acute (5) NSTEMI (non-ST elevated myocardial infarction): Type II elevation Echo has been ordered Has component of systolic CHF which dialysis will help. Status: Acute Plan Past history of atrial fibrillation. Hold Eliquis currently. Placed on heparin subcutaneous. Reinitiate Eliquis when appropriate. Right pleural effusion. This is mild to moderate. Thoracentesis was performed last hospital stay secondary to persistent shortness of breath. Holding Eliquis in case this is needed. If he appears to improve just with dialysis, and BiPAP can be weaned thoracentesis may not be done. Full code Heparin for DVT prophylaxis Attestations Medical Necessity Statement*: Needs continued hospitalization for IV antibiotics for pneumonia, supportive care for COVID. Coding Level of Care Code Acute Numerologist for [facility] Diagnoses COVID-19 U07.1 Acute respiratory failure with hypoxemia J96.01 End-stage renal disease (ESRD) N18.6 Pneumonia J18.9 NSTEMI (non-ST elevated myocardial infarction) I21.4
[2022-04-26] MEDS: NIFEdipine ER (24 hr) 30 mg Tablet 60 MG PO (09:04)
[2022-04-26] MEDS: isosorbide mononitrate ER 30 mg Tablet 15 MG PO ×2 (09:04→21:33)
[2022-04-26] MEDS: pantoprazole DR 40 mg Tablet PO (09:04)
[2022-04-26] MEDS: gabapentin 300 mg Capsule PO ×2 (09:04→21:32)
[2022-04-26] MEDS: sevelamer 800 mg Tablet 2400 MG PO ×3 (09:04→21:32)
[2022-04-26] MEDS: spironolactone 25 mg Tablet PO (09:05)
[2022-04-26] MEDS: aspirin 81 mg EC Tablet PO (09:05)
[2022-04-26] MEDS: remdesivir 100 MG in sodium chloride 0.9% (100 ml) 80 ML IV (09:05)
[2022-04-26] MEDS: insulin lispro 100 unit/1 mL SUBCUT ×2 (09:05→14:00)
[2022-04-26] MEDS: piperacillin-tazobactam 3.375 GM in sodium chloride 0.9% (plus) 50 ML IV ×2 (10:19→21:28)
--- NOTE | 2022-04-26 10:37 | ECG_ITS ---
[facility] Test Date: 2022-04-26 Pat Name: Shon Mullen Department: Room: 269 Gender: Male Mill Roll Operator: : 1945 Requested By: Julia Pierre Order Number: [id number] Dwight MD: Jairo Johnson M.D. Measurements Intervals [place] Rate: 60 P: [place]: QRS: -76 QRSD: 245 T: 111 QT: 551 QTc: 551 Interpretive Statements ELECTRONIC VENTRICULAR PACEMAKER PROLONGED QT INTERVAL Compared to ECG 04/26/2022 06:45:14 Prolonged QT interval now present Electronically Signed On 04-26-2022 17:43:20 CDT by Jairo Johnson M.D. [id number]
[2022-04-26 11:22] LABS: Troponin 5 6HR Delta -22.4 ng/L (0-12)
[2022-04-26 11:23] LABS: Troponin 5 6HR 101.6 ng/L (0-15)
[2022-04-26] MEDS: perflutren protein-a microsphr 0.22 mg/mL SDV 3 mL IV (12:11)
[2022-04-26 13:13] LABS: Glucose Point of Care 275 mg/dL (70-110)
[2022-04-26] MEDS: heparin 5,000 unit/mL INJ 1 mL 5000 UNIT SUBCUT (13:58)
[2022-04-26 17:29] LABS: Glucose Point of Care 188 mg/dL (70-110)
--- NOTE | 2022-04-26 18:00 | PC.NURSE ---
Patient's 1800 medications had to be rescheduled until 1999 as he is in dialysis.
--- NOTE | 2022-04-26 19:19 | PC.NURSE ---
Bedside Report to Calista Causey RN at this time.
[2022-04-26] MEDS: ticagrelor 90 mg Tablet PO (21:32)
[2022-04-26] MEDS: atorvastatin 40 mg Tablet 80 MG PO (21:32)
[2022-04-26] MEDS: carvedilol 3.125 mg Tablet PO (21:33)
[2022-04-26 22:03] LABS: Glucose Point of Care 303 mg/dL (70-110)
[2022-04-27] VITALS (12 sets, daily range): BP systolic 116–156; BP diastolic 66–92; PULSE 40–69; RESP 12–26; TEMP 36.4–36.6; O2SAT 91–99
[2022-04-27] MEDS: heparin 5,000 unit/mL INJ 1 mL 5000 UNIT SUBCUT ×2 (00:35→13:21)
[2022-04-27 05:01] LABS: Hematocrit 28.9 % (42.0-52.0); Hemoglobin 9.1 g/dL (11.7-16.6); Lymphocytes # 0.6 10^3/uL (0.8-4.8); Mean Corpuscular HGB Conc 31.5 g/dL (30.0-36.0); Mean Corpuscular Volume 95.4 fl (80-94); Mean Platelet Volume 9.8 fL (7.4-10.4); Monocytes # 0.6 10^3/uL (0.2-0.9); Neutrophils # 4.46 10^3/uL (1.8-7.7); Neutrophils % 79.5 %; Nucleated Red Blood Cells % 0 %; Platelet Count 138 10^3/cmm (130-400); Red Blood Count 3.03 10^6/uL (4.1-5.3); White Blood Count 5.6 10^3/uL (4.0-10.0)
[2022-04-27 05:31] LABS: Alanine Aminotransferase 14 U/L (0-41); Albumin Level 3.1 g/dL (3.5-5.2); Alkaline Phosphatase 60 U/L (40-130); Anion Gap 18.5 (5-19); Aspartate Amino Transferase 10 U/L (0-40); Blood Urea Nitrogen 38 mg/dL (8-23); Calcium 8.7 mg/dL (8.5-10.5); Carbon Dioxide 25 mmol/L (22-29); Chloride 96 mmol/L (98-107); Globulin 3.4 g/dL (1.3-4.6); Glucose 204 mg/dL (65-115); Magnesium 2.1 mg/dL (1.7-2.3); Osmolality Calculated 295 mOsm/kg (285-295); Potassium 4.5 mmol/L (3.5-5.1); Sodium 135 mmol/L (136-145); Total Bilirubin 0.2 mg/dL (0.15-1.2); Total Protein 6.5 g/dL (6.6-8.7)
[2022-04-27] MEDS: dexamethasone 10 mg/mL INJ 6 MG IVP (05:41)
[2022-04-27] MEDS: insulin glargine 100 units/1 mL 20 UNIT SUBCUT (05:41)
[2022-04-27 06:37] LABS: Iron 46 ug/dL (59-158); Percent Saturation 27.2 % (20-50); Total Iron Binding Capacity 169 mcg/dl; Unsaturated Iron Binding 123 ug/dL (112-347)
[2022-04-27 06:49] LABS: Ferritin 2265 ng/mL (30-400)
[2022-04-27 06:50] LABS: Calcium 8.5 mg/dL (8.5-10.5); Parathyroid Hormone 307.9 pg/mL (15-65)
[2022-04-27 06:54] LABS: Glucose Point of Care 187 mg/dL (70-110)
[2022-04-27 07:39] LABS: C Reactive Protein 60.8 mg/L (0.0-4.9)
[2022-04-27] MEDS: budesonide 0.5 mg/2 mL Neb INHALATION ×2 (07:46→21:15)
[2022-04-27] MEDS: ipratropium-albuterol 3 mL Neb INHALATION ×3 (07:46→21:15)
--- NOTE | 2022-04-27 07:56 | P.PN_ITS ---
Subjective Subjective: Shon reports he is doing okay, but he really has not been off BiPAP for any extended period of time. On BiPAP he believes his breathing is better. Minimal cough. Medications: Reviewed: Yes Vitals/I&O/Wt Last Vital Signs Temp 97.6 F 04/27/22 07:55 Pulse 68 04/27/22 07:55 Resp 12 04/27/22 07:55 BP 156/92 04/27/22 07:55 Pulse Ox 99 04/27/22 07:55 O2 Del Method 04/27/22 07:55 O2 Flow Rate 15 04/26/22 21:46 FiO2 40 04/27/22 04:00 04/26/22 04/27/22 04/27/22 22:59 06:59 14:59 Intake Total 290 / 390 50 / 50 Balance 290 / 390 50 / 50 Weight last 48 hrs Weight 124.3 kg Physical Exam Narrative: General exam is a white male, on BiPAP, who takes is soft to get a drink here and there. He denies any discomfort. Neck is supple no lymphadenopathy or thyromegaly Cardiovascular regular rate and rhythm, 2/6 systolic murmur Lungs no wheezing, clear, slightly diminished right base Abdomen is soft, positive bowel sounds. No obvious organomegaly exam was deferred Extremities no cyanosis clubbing or edema Skin no rash Data : 04/27/22 04:32 04/27/22 04:32 Other Labs: Echocardiogram demonstrates EF of 30%, moderate hypokinesis, no change from July Venous duplex negative for DVT CT chest demonstrates question pneumonia, versus compressive atelectasis and a small to medium right pleural effusion unchanged from previous CT Micro: Microbiology 04/26/22 06:42 Blood Culture - Preliminary Blood NEGATIVE TO DATE 04/26/22 06:38 Blood Culture - Preliminary Blood NEGATIVE TO DATE A&P Assessment and plan (1) COVID-19: Tested positive at home on Tuesday. Hard to know exactly when symptoms started. Recommend quarantine for 10 days Continue remdesivir, renally dosed Continue dexamethasone IV Otherwise supportive care Try to wean off BiPAP today Status: Acute (2) Acute respiratory failure with hypoxemia: Secondary to Covid 19. Some element of fluid overload as well consistent with acute systolic heart failure Dialysis performed yesterday. Awaiting opinion on nephrology today Currently on BiPAP. Try to wean off and see if he can tolerate nasal cannula. His baseline oxygen requirement is 4 L.. Status: Acute (3) End-stage renal disease (ESRD): Appreciate nephrology consultation for initiated addition of dialysis Status: Acute (4) Pneumonia: Possible consolidation Procalcitonin negative Continue Zosyn Vancomycin likely not needed. Discontinued after initial dosing Blood and sputum cultures pending MRSA PCR ordered and pending Status: Acute (5) NSTEMI (non-ST elevated myocardial infarction): Type II elevation Echo demonstrates EF of approximately 30% unchanged from previous He had a recent angiogram about a week to 10 days ago in [place] which she reports no intervention was needed. We will ask for this record as well as his previous echo Has component of systolic CHF which dialysis will help. Status: Acute Plan Past history of atrial fibrillation. Hold Eliquis currently. Placed on heparin subcutaneous. Reinitiate Eliquis when appropriate. Holding in case thoracentesis is needed. Right pleural effusion. This is mild to moderate. Thoracentesis was performed last hospital stay secondary to persistent shortness of breath. Holding Eliquis in case this is needed. If he appears to improve just with dialysis, and BiPAP can be weaned thoracentesis may not be done as it is highly likely this is related to his heart function Full code Heparin for DVT prophylaxis Attestations Medical Necessity Statement*: Needs continued hospitalization for treatment of COVID, respiratory failure requiring BiPAP, IV antibiotics for pneumonia. Coding Level of Care Code Acute Application Development Specialist for [facility] Diagnoses COVID-19 U07.1 Acute respiratory failure with hypoxemia J96.01 End-stage renal disease (ESRD) N18.6 Pneumonia J18.9 NSTEMI (non-ST elevated myocardial infarction) I21.4
[2022-04-27] MEDS: insulin lispro 100 unit/1 mL SUBCUT ×2 (08:04→17:43)
[2022-04-27] MEDS: sevelamer 800 mg Tablet 2400 MG PO ×3 (08:04→17:44)
[2022-04-27] MEDS: piperacillin-tazobactam 3.375 GM in sodium chloride 0.9% (plus) 50 ML IV ×2 (08:04→21:00)
[2022-04-27] MEDS: isosorbide mononitrate ER 30 mg Tablet 15 MG PO ×2 (08:04→17:44)
--- NOTE | 2022-04-27 08:04 | PM.PN ---
Subjective Subjective: still sob. feels better. + cough, edema. no n/v/f/c/lackey/d Medications: Reviewed: Yes Medication Review Details: Current Medications Acetaminophen (Acetaminophen 325 Mg Tablet) 650 mg PO Q6H PRN PRN Reason: Mild/Mod Pain Or Temp >/= 101 Albuterol/Ipratropium (Ipratropium-Albuterol 3 Ml Neb) 3 ml INHALATION QID.[facility] Last Admin: 04/27/22 07:46 Dose: 3 ml Aspirin (Aspirin 81 Mg Ec Tablet) 81 mg PO DAILY [facility] Last Admin: 04/26/22 09:05 Dose: 81 mg Atorvastatin Calcium (Atorvastatin 40 Mg Tablet) 80 mg PO DAILY@1800 [facility] Last Admin: 04/26/22 21:32 Dose: 80 mg Budesonide (Budesonide 0.5 Mg/2 Ml Neb) 0.5 mg INHALATION BID.[facility] Last Admin: 04/27/22 07:46 Dose: 0.5 mg Carvedilol (Carvedilol 3.125 Mg Tablet) 3.125 mg PO BID@0900,2100 [facility] Last Admin: 04/26/22 21:33 Dose: 3.125 mg Dexamethasone (Dexamethasone 10 Mg/Ml Inj) 6 mg IVP Q24H [facility] Last Admin: 04/27/22 05:41 Dose: 6 mg Dextrose (Dextrose 50% Syringe 50 Ml) 25 ml IVP ONCE PRN; Protocol PRN Reason: hypoglycemia protocol Dextrose (Dextrose 50% Syringe 50 Ml) 50 ml IVP PRN PRN; Protocol PRN Reason: hypoglycemia protocol Gabapentin (Gabapentin 300 Mg Capsule) 300 mg PO BID@,18 [facility] Last Admin: 04/26/22 21:32 Dose: 300 mg Glucagon (Glucagon 1 Mg/Ml Inj 1 Ml) 1 mg IM ONCE PRN; Protocol PRN Reason: Adult Acute Hypoglycemia Prot. Heparin Sodium (Porcine) (Heparin 5,000 Unit/Ml Inj 1 Ml) 5,000 unit SUBCUT Q12H [facility] Last Admin: 04/27/22 00:35 Dose: 5,000 unit Dextrose (D5w) 500 mls @ 100 mls/hr IV ONCE PRN; Protocol PRN Reason: Adult Acute Hypoglycemia Prot Piperacillin Sod/Tazobactam (Sod 3.375 gm/ Sodium Chloride) 50 mls @ 12.5 mls/hr IV Q12H [facility] Last Infusion: 04/27/22 07:29 Dose: Infused Remdesivir 100 mg/ Sodium (Chloride) 100 mls @ 100 mls/hr IV DIALYSIS [facility]; Protocol Stop: 04/29/22 09:59 Last Infusion: 04/26/22 10:20 Dose: Infused Insulin Glargine (Insulin Glargine 100 Units/1 Ml) 20 unit SUBCUT QAM [facility] Last Admin: 04/27/22 05:41 Dose: 20 unit Insulin Human Lispro (Insulin Lispro 100 Unit/1 Ml) 0 unit SUBCUT TIDWM [facility]; Protocol Last Admin: 04/26/22 18:14 Dose: Not Given Isosorbide Mononitrate (Isosorbide Mononitrate Er 30 Mg Tablet) 15 mg PO BID [facility] Last Admin: 04/26/22 21:33 Dose: 15 mg Nifedipine (Nifedipine Er (24 Hr) 30 Mg Tablet) 60 mg PO DAILY@09 [facility] Last Admin: 04/26/22 09:04 Dose: 60 mg Nitroglycerin (Nitroglycerin 0.4 Mg Sublingual Tablet) 0.4 mg SUBLINGUAL Q5M PRN PRN Reason: Chest Pain Ondansetron HCl (Ondansetron 2 Mg/Ml Sdv 2 Ml) 4 mg IVP Q8H PRN PRN Reason: vomiting, or N/V if npo Pantoprazole Sodium (Pantoprazole Dr 40 Mg Tablet) 40 mg PO DAILY [facility] Last Admin: 04/26/22 09:04 Dose: 40 mg Sevelamer Carbonate (Sevelamer 800 Mg Tablet) 2,400 mg PO TID@,,18 [facility] Last Admin: 04/26/22 21:32 Dose: 2,400 mg Spironolactone (Spironolactone 25 Mg Tablet) 25 mg PO DAILY@09 [facility] Last Admin: 04/26/22 09:05 Dose: 25 mg Ticagrelor (Ticagrelor 90 Mg Tablet) 90 mg PO BID [facility] Last Admin: 04/26/22 21:32 Dose: 90 mg Vitals/I&O/Wt Last Vital Signs Temp 97.6 F 04/27/22 07:55 Pulse 68 04/27/22 07:55 Resp 12 04/27/22 07:55 BP 156/92 04/27/22 07:55 Pulse Ox 99 08/16/22 07:55 O2 Del Method 04/27/22 07:55 O2 Flow Rate 15 04/26/22 21:46 FiO2 40 04/27/22 07:30 04/26/22 04/27/22 04/27/22 22:59 06:59 14:59 Intake Total 290 / 390 50 / 50 Balance 290 / 390 50 / 50 Weight last 48 hrs Weight 124.3 kg Physical Exam Narrative: general- remains SOB on bipap, obese man heent= nc/at, eomi neck obese lungs wheezes and crackles b/l heart reg, no rub abd soft, distended, + bs ext1+ edema RUE AVF w/ thrill and bruit neuro- a,a, o x 3 Data : 04/27/22 04:32 04/27/22 04:32 Micro: Microbiology 04/26/22 06:42 Blood Culture - Preliminary Blood NEGATIVE TO DATE 04/26/22 06:38 Blood Culture - Preliminary Blood NEGATIVE TO DATE A&P Assessment and plan (1) End-stage renal disease (ESRD): 77 yr old man 1. SARS- COVID-19 pna- can give renal dose remdesivir and steroids 2. ESRD- sob, hyperkalemia-s/p hd yesterday. will do SUF now and full hd in aml via avf 3. MARAL/ COPD on bipap 4. anemia- high ferritin- give epo 5. hyponatremia from renal disease 6. CHF w/ elevated bipap- monitor w/ dialysis seen and examined w/ rN- telehealth visit informed consent for dialysis and telehealth visit obtained from pt Status: Acute Plan as above Attestations Medical Necessity Statement*: esrd, covid, volume overload, chf, sob Time Spent in Patient Care: 16 - 35 minutes (>than 50% of time spent in counselling and/or direct pt care on unit). Coding Level of Care Code Acute Business Sales Consultant for [facility] Diagnoses End-stage renal disease (ESRD) N18.6
[2022-04-27] MEDS: aspirin 81 mg EC Tablet PO (08:05)
[2022-04-27] MEDS: spironolactone 25 mg Tablet PO (08:05)
[2022-04-27] MEDS: pantoprazole DR 40 mg Tablet PO (08:05)
[2022-04-27] MEDS: carvedilol 3.125 mg Tablet PO ×2 (08:05→21:00)
[2022-04-27] MEDS: gabapentin 300 mg Capsule PO ×2 (08:05→17:44)
[2022-04-27] MEDS: NIFEdipine ER (24 hr) 30 mg Tablet 60 MG PO (08:05)
[2022-04-27] MEDS: ticagrelor 90 mg Tablet PO ×2 (13:21→17:49)
[2022-04-27] MEDS: epoetin alfa 10,000 unit/mL INJ 10000 UNIT SUBCUT (13:21)
[2022-04-27] MEDS: polyethylene glycol 3350 Pkt 17 gm PO ×2 (16:12→17:46)
[2022-04-27 17:13] LABS: Glucose Point of Care 323 mg/dL (70-110)
[2022-04-27] MEDS: atorvastatin 40 mg Tablet 80 MG PO (17:44)
[2022-04-27 21:24] LABS: Glucose Point of Care 298 mg/dL (70-110)
[2022-04-28] VITALS (19 sets, daily range): BP systolic 122–144; BP diastolic 70–83; PULSE 40–74; RESP 11–26; TEMP 35.9–36.8; O2SAT 86–98
[2022-04-28] MEDS: acetaminophen 325 mg Tablet 650 MG PO
[2022-04-28] MEDS: heparin 5,000 unit/mL INJ 1 mL 5000 UNIT SUBCUT ×2 (00:01→12:38)
[2022-04-28] MEDS: remdesivir 100 MG in sodium chloride 0.9% (100 ml) 80 ML IV ×2 (03:30→03:37)
[2022-04-28 05:16] LABS: Basophils % 0.1 %; Eosinophils % 0.1 %; Hematocrit 30.2 % (42.0-52.0); Hemoglobin 9.7 g/dL (11.7-16.6); Lymphocytes # 0.8 10^3/uL (0.8-4.8); Lymphocytes % 11.2 %; Mean Corpuscular HGB Conc 32.1 g/dL (30.0-36.0); Mean Corpuscular Hemoglobin 30.4 pg (28.0-34.0); Mean Corpuscular Volume 94.7 fl (80-94); Mean Platelet Volume 9.5 fL (7.4-10.4); Monocytes # 0.7 10^3/uL (0.2-0.9); Monocytes % 9.8 %; Neutrophils # 5.79 10^3/uL (1.8-7.7); Neutrophils % 78.1 %; Nucleated Red Blood Cells % 0 %; Platelet Count 174 10^3/cmm (130-400); Red Blood Count 3.19 10^6/uL (4.1-5.3); Red Cell Distribution Width 17.1 % (12.1-15.1); White Blood Count 7.4 10^3/uL (4.0-10.0)
[2022-04-28 05:43] LABS: Alanine Aminotransferase 16 U/L (0-41); Albumin Level 3.3 g/dL (3.5-5.2); Alkaline Phosphatase 66 U/L (40-130); Aspartate Amino Transferase 11 U/L (0-40); Blood Urea Nitrogen 66 mg/dL (8-23); Calcium 9.1 mg/dL (8.5-10.5); Carbon Dioxide 23 mmol/L (22-29); Chloride 92 mmol/L (98-107); Globulin 3.7 g/dL (1.3-4.6); Glucose 148 mg/dL (65-115); Magnesium 2.4 mg/dL (1.7-2.3); Osmolality Calculated 296 mOsm/kg (285-295); Sodium 132 mmol/L (136-145); Total Bilirubin 0.2 mg/dL (0.15-1.2)
--- NOTE | 2022-04-28 05:58 | PM.PN ---
Subjective Subjective: seen during dialysis. Rapid response was called earlier due to respiratory distress. Now on BiPap Vitals/I&O/Wt Last Vital Signs Temp 97.9 F 04/28/22 04:00 Pulse 40 L 04/28/22 05:27 Resp 11 L 04/28/22 04:00 BP 129/76 04/28/22 04:00 Pulse Ox 97 04/28/22 04:00 O2 Del Method 04/28/22 04:00 O2 Flow Rate 4 04/28/22 04:00 FiO2 40 04/28/22 04:00 04/27/22 04/27/22 04/28/22 14:59 22:59 06:59 Intake Total 100 / 100 Balance 100 / 100 Data : 04/28/22 04:50 04/28/22 04:50 Other Labs: Ca 9.1, Mg 2.4 Micro: Microbiology 04/26/22 06:42 Blood Culture - Preliminary Blood NEGATIVE TO DATE 04/26/22 06:38 Blood Culture - Preliminary Blood NEGATIVE TO DATE A&P Assessment and plan (1) End-stage renal disease (ESRD): Status: Acute Plan Seen and examined via telemedicine with assistance of RN at bedside. 1. ESRD, HD MWF 2. Fluid overload 3. COVID Pneumonia 4. Hyponatremia, stable 5. Anemia, stable, iron replete, epogen at dialysis HD today, UF as BP tolerates. Continue HD MWF Attestations Medical Necessity Statement*: see above Time Spent in Patient Care: 16 - 35 minutes Coding Level of Care Code Acute Automotive Maintenance Technician for [facility] Diagnoses End-stage renal disease (ESRD) N18.6
[2022-04-28] MEDS: insulin glargine 100 units/1 mL 20 UNIT SUBCUT (06:26)
[2022-04-28 06:27] LABS: Glucose Point of Care 165 mg/dL (70-110)
[2022-04-28] MEDS: dexamethasone 10 mg/mL INJ 6 MG IVP (06:27)
[2022-04-28] MEDS: ipratropium-albuterol 3 mL Neb INHALATION ×4 (07:55→20:39)
[2022-04-28] MEDS: budesonide 0.5 mg/2 mL Neb INHALATION ×2 (07:55→20:39)
[2022-04-28] MEDS: insulin lispro 100 unit/1 mL SUBCUT ×2 (09:52→12:38)
[2022-04-28] MEDS: piperacillin-tazobactam 3.375 GM in sodium chloride 0.9% (plus) 50 ML IV ×2 (09:53→20:08)
[2022-04-28] MEDS: ticagrelor 90 mg Tablet PO ×2 (09:54→17:55)
[2022-04-28] MEDS: spironolactone 25 mg Tablet PO (09:54)
[2022-04-28] MEDS: NIFEdipine ER (24 hr) 30 mg Tablet 60 MG PO (09:54)
[2022-04-28] MEDS: sevelamer 800 mg Tablet 2400 MG PO ×3 (09:54→17:54)
[2022-04-28] MEDS: carvedilol 3.125 mg Tablet PO ×2 (09:54→20:10)
[2022-04-28] MEDS: aspirin 81 mg EC Tablet PO (09:54)
[2022-04-28] MEDS: gabapentin 300 mg Capsule PO ×2 (09:54→17:53)
[2022-04-28] MEDS: pantoprazole DR 40 mg Tablet PO (09:54)
[2022-04-28] MEDS: isosorbide mononitrate ER 30 mg Tablet 15 MG PO ×2 (09:54→17:51)
[2022-04-28 12:02] LABS: Glucose Point of Care 289 mg/dL (70-110)
--- NOTE | 2022-04-28 13:42 | P.PN_ITS ---
Subjective Subjective: Still feeling very short of breath with exertion. No chest discomfort. Has had approximately 5 L out with dialysis, more to be removed today. Medications: Reviewed: Yes Vitals/I&O/Wt Last Vital Signs Temp 97.7 F 04/28/22 11:55 Pulse 66 04/28/22 11:55 Resp 18 04/28/22 11:55 BP 136/83 04/28/22 11:55 Pulse Ox 91 04/28/22 11:55 O2 Del Method 04/28/22 11:55 O2 Flow Rate 4 04/28/22 11:55 FiO2 35 04/28/22 08:01 04/27/22 04/28/22 04/28/22 22:59 06:59 14:59 Intake Total 50 / 150 920 / 920 Balance 50 / 150 920 / 920 Physical Exam 2 Narrative: General exam is a white male, on BiPAP, who takes is soft to get a drink here and there. He denies any discomfort. Neck is supple no lymphadenopathy or thyromegaly Cardiovascular regular rate and rhythm, 2/6 systolic murmur Lungs no wheezing, clear, slightly diminished right base Abdomen is soft, positive bowel sounds. No obvious organomegaly exam was deferred Extremities no cyanosis clubbing or edema Skin no rash Data : 04/28/22 04:50 04/28/22 04:50 A&P Assessment and plan (1) COVID-19: Tested positive at home on Tuesday. Hard to know exactly when symptoms started. Recommend quarantine for 10 days Continue remdesivir, renally dosed 100 mg IV on dialysis days only. Discussed with patient this may or may not be helpful. Continue dexamethasone IV 6 mg every 24 hours Otherwise supportive care He has been able to wean off BiPAP, but is still significantly short of breath. This may be secondary to pleural effusion. Status: Acute (2) Acute respiratory failure with hypoxemia: Secondary to Covid 19. Some element of fluid overload as well consistent with acute systolic heart failure Dialysis on day of admission Tuesday, ultrafiltration Tuesday, and dialysis again today. Currently on BiPAP. Try to wean off and see if he can tolerate nasal cannula. His baseline oxygen requirement is 4 L.. Pulmonary will evaluate with ultrasound to see if thoracentesis is appropriate. Status: Acute (3) End-stage renal disease (ESRD): Appreciate nephrology consultation for initiated addition of dialysis Status: Acute (4) Pneumonia: Possible consolidation Procalcitonin negative Continue Zosyn Vancomycin likely not needed. Discontinued after initial dosing Blood and sputum cultures pending MRSA PCR ordered and pending Unlikely to be atypical organism involvement. Status: Acute (5) NSTEMI (non-ST elevated myocardial infarction): Type II elevation Echo demonstrates EF of approximately 30% unchanged from previous He had a recent angiogram about a week to 10 days ago in [place] which she re ports no intervention was needed. We will ask for this record as well as his previous echo Has component of systolic CHF which dialysis will help. Status: Acute Plan Past history of atrial fibrillation. Hold Eliquis currently. Placed on heparin subcutaneous. Reinitiate Eliquis when appropriate. Holding in case thoracentesis is needed. Right pleural effusion. This is mild to moderate. Thoracentesis was performed last hospital stay secondary to persistent shortness of breath. Holding Eliquis in case this is needed. Pulmonary will evaluate with ultrasound whether thoracentesis will be useful in his case. Full code Heparin for DVT prophylaxis Attestations Medical Necessity Statement*: Needs continued hospitalization secondary to persistent dyspnea, hypoxia and need for IV antibiotics, for treatment of pneumonia and IV steroids for COVID. Coding Level of Care Code Acute Radiologist Chief Of Breast Imaging for [facility] Diagnoses COVID-19 U07.1 Acute respiratory failure with hypoxemia J96.01 End-stage renal disease (ESRD) N18.6 Pneumonia J18.9 NSTEMI (non-ST elevated myocardial infarction) I21.4
[2022-04-28 17:25] LABS: Glucose Point of Care 141 mg/dL (70-110)
[2022-04-28] MEDS: atorvastatin 40 mg Tablet 80 MG PO (17:50)
[2022-04-28] MEDS: polyethylene glycol 3350 Pkt 17 gm PO (17:54)
[2022-04-28 19:55] LABS: Glucose Point of Care 241 mg/dL (70-110)
[2022-04-29] VITALS (14 sets, daily range): BP systolic 115–139; BP diastolic 64–77; PULSE 60–88; RESP 16–26; TEMP 36.6–37.1; O2SAT 92–98
[2022-04-29] MEDS: remdesivir 100 MG in sodium chloride 0.9% (100 ml) 80 ML IV (04:26)
[2022-04-29 04:59] LABS: Basophils % 0.2 %; Hematocrit 29.6 % (42.0-52.0); Hemoglobin 9.6 g/dL (11.7-16.6); Lymphocytes # 0.8 10^3/uL (0.8-4.8); Lymphocytes % 12.3 %; Mean Corpuscular HGB Conc 32.4 g/dL (30.0-36.0); Mean Corpuscular Hemoglobin 30.4 pg (28.0-34.0); Mean Corpuscular Volume 93.7 fl (80-94); Mean Platelet Volume 9.8 fL (7.4-10.4); Monocytes # 0.7 10^3/uL (0.2-0.9); Monocytes % 10.9 %; Neutrophils # 4.74 10^3/uL (1.8-7.7); Neutrophils % 75.8 %; Nucleated Red Blood Cells % 0 %; Platelet Count 185 10^3/cmm (130-400); Red Blood Count 3.16 10^6/uL (4.1-5.3); White Blood Count 6.3 10^3/uL (4.0-10.0)
[2022-04-29 05:22] LABS: Alanine Aminotransferase 16 U/L (0-41); Albumin Level 3.3 g/dL (3.5-5.2); Alkaline Phosphatase 62 U/L (40-130); Anion Gap 18.7 (5-19); Aspartate Amino Transferase 13 U/L (0-40); Blood Urea Nitrogen 38 mg/dL (8-23); C Reactive Protein 22.6 mg/L (0.0-4.9); Calcium 8.7 mg/dL (8.5-10.5); Carbon Dioxide 27 mmol/L (22-29); Chloride 96 mmol/L (98-107); Globulin 3.3 g/dL (1.3-4.6); Glucose 143 mg/dL (65-115); Magnesium 2.2 mg/dL (1.7-2.3); Osmolality Calculated 296 mOsm/kg (285-295); Phosphorus 3.8 mg/dL (2.5-4.5); Potassium 4.7 mmol/L (3.5-5.1); Sodium 137 mmol/L (136-145); Total Bilirubin 0.3 mg/dL (0.15-1.2); Total Protein 6.6 g/dL (6.6-8.7)
[2022-04-29] MEDS: insulin glargine 100 units/1 mL 20 UNIT SUBCUT (05:55)
[2022-04-29] MEDS: dexamethasone 10 mg/mL INJ 6 MG IVP (05:56)
[2022-04-29 06:13] LABS: Glucose Point of Care 137 mg/dL (70-110)
[2022-04-29] MEDS: budesonide 0.5 mg/2 mL Neb INHALATION ×2 (08:59→20:23)
[2022-04-29] MEDS: ipratropium-albuterol 3 mL Neb INHALATION ×4 (09:00→20:23)
[2022-04-29] MEDS: piperacillin-tazobactam 3.375 GM in sodium chloride 0.9% (plus) 50 ML IV ×2 (09:50→22:15)
[2022-04-29] MEDS: NIFEdipine ER (24 hr) 30 mg Tablet 60 MG PO (09:51)
[2022-04-29] MEDS: aspirin 81 mg EC Tablet PO (09:51)
[2022-04-29] MEDS: pantoprazole DR 40 mg Tablet PO (09:51)
[2022-04-29] MEDS: carvedilol 3.125 mg Tablet PO ×2 (09:51→22:15)
[2022-04-29] MEDS: sevelamer 800 mg Tablet 2400 MG PO ×3 (09:51→17:52)
[2022-04-29] MEDS: ticagrelor 90 mg Tablet PO ×2 (09:52→18:08)
[2022-04-29] MEDS: gabapentin 300 mg Capsule PO ×2 (09:52→17:52)
[2022-04-29] MEDS: polyethylene glycol 3350 Pkt 17 gm PO ×2 (09:52→17:52)
[2022-04-29] MEDS: isosorbide mononitrate ER 30 mg Tablet 15 MG PO ×2 (09:52→17:59)
[2022-04-29] MEDS: spironolactone 25 mg Tablet PO (09:54)
--- NOTE | 2022-04-29 10:51 | PC.SOCIAL ---
IMM update IMM updated with patient and . Verbalized an understanding. Initialled, dated, timed, and placed in chart.
--- NOTE | 2022-04-29 11:08 | P.PN_ITS ---
Subjective Subjective: breathing better today at home uses 4L NC Medications: Medication Review Details: will hold nifedipine to prevent hypotension with dialysis Vitals/I&O/Wt Last Vital Signs Temp 98.7 F 04/29/22 04:00 Pulse 68 04/29/22 09:03 Resp 18 04/29/22 09:03 BP 131/71 04/29/22 08:00 Pulse Ox 92 04/29/22 09:03 O2 Del Method 04/29/22 09:03 O2 Flow Rate 4 04/29/22 09:03 FiO2 35 04/28/22 22:53 04/28/22 04/29/22 04/29/22 22:59 06:59 14:59 Intake Total 250 / 1410 2019 360 / 360 Output Total 0 / 0 Balance 250 / 1410 2019 360 / 360 Data : 04/29/22 04:32 04/29/22 04:32 Micro: Microbiology 04/27/22 18:40 MRSA Culture - Final Nose A&P Assessment and plan (1) End-stage renal disease (ESRD): Status: Acute Plan Seen and examined via telemedicine with assistance of RN at bedside. 1. ESRD, HD MWF 2. Fluid overload 3. COVID Pneumonia 4. Hyponatremia, stable 5. Anemia, stable, iron replete, epogen at dialysis HD tomorrow,3 L UF as BP tolerates. Continue HD MWF Attestations Medical Necessity Statement*: see above Time Spent in Patient Care: 16 - 35 minutes Coding Level of Care Code Acute Boiler Technician for [facility]ure[facility] Chaudhari Diagnoses End-stage renal disease (ESRD) N18.6
[2022-04-29 11:17] LABS: Glucose Point of Care 353 mg/dL (70-110)
--- NOTE | 2022-04-29 12:20 | PM.PN ---
Subjective Subjective: Shon is asleep when I entered the room. I visited extensively with his . A rapid response was called yesterday secondary to shortness of breath and he used BiPAP most of the rest of the day. Today he is doing a little bit better. I discussed with him yesterday, and his today about potential thoracentesis and they were amenable. Although he is better than on admission he still gets very winded with any exertion. Medications: Reviewed: Yes Vitals/I&O/Wt Last Vital Signs Temp 98.7 F 04/29/22 04:00 Pulse 68 04/29/22 11:59 Resp 20 H 04/29/22 11:40 BP 131/71 04/29/22 08:00 Pulse Ox 92 04/29/22 11:40 O2 Del Method 04/29/22 11:40 O2 Flow Rate 4 04/29/22 11:40 FiO2 35 04/28/22 22:53 04/28/22 04/29/22 04/29/22 22:59 06:59 14:59 Intake Total 250 / 1410 / 2019 360 / 360 Output Total 0 / 0 Balance 250 / 1410 / 2019 360 / 360 Physical Exam Narrative: General exam is a white male, sleeping on BiPAP Neck is supple no lymphadenopathy or thyromegaly Cardiovascular regular rate and rhythm, 2/6 systolic murmur Lungs no wheezing, clear, slightly diminished right base Abdomen is soft, positive bowel sounds. No obvious organomegaly exam was deferred Extremities no cyanosis clubbing or edema Skin no rash Data : 04/29/22 04:32 04/29/22 04:32 Micro: Microbiology 04/27/22 18:40 MRSA Culture - Final Nose A&P Assessment and plan (1) COVID-19: Tested positive at home on Tuesday. Hard to know exactly when symptoms started. Recommend quarantine for 10 days Continue remdesivir, renally dosed 100 mg IV on dialysis days only. Discussed with patient this may or may not be helpful. Continue dexamethasone IV 6 mg every 24 hours Otherwise supportive care He has been able to wean off BiPAP, but is still significantly short of breath. This may be secondary to pleural effusion. Status: Acute (2) Acute respiratory failure with hypoxemia: Secondary to Covid 19. Some element of fluid overload as well consistent with acute systolic heart failure Dialysis on day of admission Tuesday, ultrafiltration Tuesday, and dialysis Tuesday, ultrafiltration again today. Is weaned down to 4 L Pulmonary will perform thoracentesis today Status: Acute (3) End-stage renal disease (ESRD): Appreciate nephrology consultation for initiated addition of dialysis Status: Acute (4) Pneumonia: Possible consolidation Procalcitonin negative Continue Zosyn Vancomycin likely not needed. Discontinued after initial dosing Blood and sputum cultures pending MRSA PCR negative Unlikely to be atypical organism involvement. Status: Acute (5) NSTEMI (non-ST elevated myocardial infarction): Type II elevation Echo demonstrates EF of approximately 30% unchanged from previous He had a recent angiogram about a week to 10 days ago in [place] which she reports no intervention was needed. We will ask for this record as well as his previous echo Has component of systolic CHF which dialysis will help. Status: Acute Plan Past history of atrial fibrillation. Hold Eliquis currently. Placed on heparin subcutaneous. Reinitiate Eliquis when appropriate. Holding in case thoracentesis is needed. Right pleural effusion. This is mild to moderate. Thoracentesis was performed last hospital stay secondary to persistent shortness of breath. Holding Eliquis in case this is needed. Pulmonary to perform thoracentesis today. Full code Heparin for DVT prophylaxis Attestations Medical Necessity Statement*: Needs continued hospitalization for close monitoring and treatment of pneumonia with IV antibiotics, continue treatment of COVID with remdesivir, evaluation and thoracentesis today for pleural effusion. Coding Level of Care Code Acute Medical Staff Services Coordinator for [facility] Contreras Diagnoses COVID-19 U07.1 Acute respiratory failure with hypoxemia J96.01 End-stage renal disease (ESRD) N18.6 Pneumonia J18.9 NSTEMI (non-ST elevated myocardial infarction) I21.4
--- NOTE | 2022-04-29 12:32 | PM.CONSULT ---
Providers/Reason For Consult Consulting Physician/Specialty*: Francis Bah MD/Pulmonary Critical Care Reason for Consult*: Worsening shortness of breath and patient with persistent right pleural effusion with underlying ESRD pneumonolysis and CHF s/p 5 stents recently Requesting Physician: Ron Piña MD Attending Physician: Ron Piña MD Primary Care Provider: Adria Artis DO History of Present Illness History of Present Illness Shon Mullen is a 77 year old male with past medical history of diabetes, peripheral neuropathy, CAD, ESRD on dialysis came to hospital due to worsening hypoxemia. Patient is COVID-positive. Review of records suggest that patient was doing peritoneal dialysis for his ESRD and his dyspnea got worse since May 2021. Patient was admitted in July 2021 for fluid overload secondary to ESRD, found to have new onset congestive ejection fraction 38%, underwent coronary angiogram showed significant RCA disease and was discharged with plan to aggressively diurese and do staged PCI. At that point he underwent right-sided thoracentesis and approximately 1100 cc transudative fluid was drained. Cultures were negative at that time. Patient shortness of breath improved significantly and he was weaned off supplemental oxygen and discharged home. Patient underwent 5 stents placed in [place] and his echocardiogram post stent placement showed ejection fraction from 45%. Later he followed up with my colleague Dr. Adan in pulmonary clinic in November 2021-at that time he was doing good with Stiolto. 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 His gas transfer severely reduced at 34%. He was not requiring supplemental oxygen during that visit. reported today at bedside that patient has to go to emergency room sometime in January 2022 at [place] and patient was started on 4 L home oxygen since then. For the last couple of months patient has been having gradual worsening of dyspnea, currently doing hemodialysis 3 days a week for his ESRD, recent angiogram 2 weeks ago at [place] cardiology revealed that patent stents. Last week on Tuesday patient was feeling sick and her home COVID test was positive but his supplemental oxygen requirement remained at 4 L. Later on 04/26/2022, when patient went to his hemodialysis saturations were 76% on 4 L and so he was transferred to ER. Echocardiogram during admission reported technically difficult study but normal LV cavity size with moderately decreased LV systolic function and LVEF estimated 30%. Moderate global left ventricular hypokinesis. He was started on hemodialysis today received a few sessions here. Patient was placed in COVID isolation protocol and CT chest was obtained which showed small to medium right pleural effusion with subpulmonic component. There is increased right lower lobe small wedge-shaped area of consolidation with air bronchograms. He is still requiring 1 L supplemental oxygen and desaturates upon exertion. Yesterday rapid response was called due to worsening shortness of breath. Currently patient is receiving Zosyn. On remdesivir renally dosed on dialysis days only. On dexamethasone 6 mg 24 hours. Pulmonary consulted for therapeutic thoracentesis of right pleural effusion will facilitate improvement with patient's respiratory status. Seen patient today, sitting comfortably and saturating 94% with 4 L nasal cannula, any slight movement patient desaturates to high 80s. Reported feels somewhat better today. Currently receiving Brilinta and aspirin, his Eliquis for atrial fibrillation was held. Review of Systems General: Reports: 10 or more systems reviewed and unremarkable except in HPI and below Medications/Allergies Home Medications Medication Instructions Recorded Confirmed Last Taken Type atorvastatin 80 mg tablet 80 mg PO DAILY@1800 10/02/19 04/26/22 04/25/22 History nifedipine 60 mg tablet,extended 60 mg PO DAILY@09 10/02/19 04/26/22 04/25/22 History release epoetin beta, methoxy peg 30 60 mcg SUBCUT Q14D 11/07/19 04/26/22 07/03/21 History mcg/0.3 mL injection syringe (Mircera) gabapentin 300 mg capsule 300 mg PO BID@11/07/19 04/26/22 04/25/22 History sevelamer carbonate 800 mg tablet 2,400 mg PO TID@,,11/07/19 04/26/22 04/25/22 History (Renvela) famotidine 20 mg tablet (Pepcid) 20 mg PO BID@04/16/20 04/26/22 04/25/22 History liraglutide (weight loss) 3 mg/0.5 3 mg SUBCUT DAILY PRN weight loss 04/16/20 04/26/22 01/31/21 History mL (18 mg/3 mL) subcut pen injector (Saxenda) spironolactone 25 mg tablet 25 mg PO DAILY@09 12/20 08/15/22 08/14/22 History docusate sodium 100 mg capsule 200 mg PO BID@09/17/20 04/26/22 04/25/22 History allopurinol 100 mg tablet 100 mg PO DAILY PRN Gout 11/11/20 04/26/22 01/31/21 History oxycodone-acetaminophen 5 mg-325 1 tab PO BEDTIME 11/11/20 04/26/22 03/01/21 History mg tablet polyethylene glycol 3350 17 17 g PO DAILY PRN Constipation 11/11/20 04/26/22 03/01/21 History gram/dose oral powder (Miralax) albuterol sulfate 90 mcg/actuation 2 puff inhalation Q6H PRN 01/02/21 04/26/22 02/23/21 Rx aerosol inhaler shortness of breath or wheezing 30 days #8.5 grams albuterol sulfate 2.5 mg inhalation Q6H PRN 07/13/21 04/26/22 Unknown History Shortness Of Breath cinacalcet 30 mg tablet 30 mg PO .THREE TIMES A WEEK 07/13/21 04/26/22 Unknown History gentamicin 0.1 % topical cream 1 applic topical TID PRN unknown 07/13/21 04/26/22 Unknown History insulin glargine 100 unit/mL 50 unit SUBCUT QAM 07/13/21 04/26/22 08/09/21 History subcutaneous solution (Lantus U-100 Insulin) lidocaine-prilocaine 2.5 %-2.5 % 1 applic topical TID PRN Pain 07/13/21 04/26/22 Unknown History topical cream tiotropium 2.5 mcg-olodaterol 2.5 2 puff inhalation QAM 07/13/21 04/26/22 08/09/21 History mcg/actuation mist for inhalation (Stiolto Respimat) apixaban 5 mg tablet (Eliquis) 5 mg PO BID@,18 30 days #60 tabs 07/18/21 04/26/22 04/25/22 Rx isosorbide mononitrate 30 mg 15 mg PO BID #90 tabs 08/05/21 04/26/22 04/25/22 Rx tablet,extended release 24 hr cholecalciferol (vitamin D3) 50 50 mcg PO QAM 11/11/21 04/26/22 04/25/22 History mcg (2,000 unit) capsule roflumilast 250 mcg tablet 250 - 500 mcg PO DAILY 11/11/21 04/26/22 4 Weeks Ago History (Daliresp) ~03/29/22 see pharmacy comment carvedilol 6.25 mg tablet 3.125 mg PO BID 04/26/22 04/26/22 04/25/22 History cetirizine 10 mg tablet (Zyrtec) 10 mg PO DAILY@04/26/22 04/26/22 04/25/22 History doxercalciferol 1 mcg capsule 1 mcg PO .THREE TIMES A WEEK 04/26/22 04/26/22 Unknown History magnesium 250 mg tablet 250 mg PO QAM 04/26/22 04/26/22 Unknown History nitroglycerin 0.4 mg sublingual 0.4 mg sublingual Q5M PRN Chest 04/26/22 04/26/22 Unknown History tablet (Nitrostat) Pain omega-3 fatty acids 1,000 mg 1,000 mg PO BID@04/26/22 04/26/22 04/25/22 History capsule ondansetron HCl 8 mg tablet 4 mg PO Q6H PRN Nausea And Vomiting 04/26/22 04/26/22 Unknown History ticagrelor 90 mg tablet (Brilinta) 90 mg PO BID 04/26/22 04/26/22 04/25/22 History vitamin B complex-vitamin C-folic 1 tab PO QAM 04/26/22 04/26/22 04/25/22 History acid 0.8 mg tablet Allergies Allergy/AdvReac Type Severity Reaction Status Date / Time ciprofloxacin [From Cipro] Allergy rash Verified 04/26/22 08:49 felodipine Allergy rash Verified 04/26/22 08:49 sulfamethoxazole Allergy rash Verified 04/26/22 08:49 [From Septra] trimethoprim [From Septra] Allergy rash Verified 04/26/22 08:49 Current Medications Generic Name Dose Route Start Last Admin Trade Name Freq PRN Reason Stop Dose Admin Acetaminophen 650 mg 04/26/22 06:18 04/28/22 00:00 Acetaminophen 325 Mg Tablet PO 650 mg Q6H PRN Administration Mild/Mod Pain Or Temp >/= 101 Albuterol/Ipratropium 3 ml 04/26/22 08:00 04/29/22 11:38 Ipratropium-Albuterol 3 Ml Neb INHALATION 3 ml QID.RESPIRATORY GEORGE Administration Atorvastatin Calcium 80 mg 04/26/22 18:00 04/28/22 17:50 Atorvastatin 40 Mg Tablet PO 80 mg DAILY@1800 GEORGE Administration Budesonide 0.5 mg 04/26/22 08:00 04/29/22 08:59 Budesonide 0.5 Mg/2 Ml Neb INHALATION 0.5 mg BID.RESPIRATORY GEORGE Administration Carvedilol 3.125 mg 04/26/22 21:00 04/29/22 09:51 Carvedilol 3.125 Mg Tablet PO 3.125 mg BID@0900,2100 GEORGE Administration Dexamethasone 6 mg 04/27/22 06:30 04/29/22 05:56 Dexamethasone 10 Mg/Ml Inj IVP 6 mg Q24H GEORGE Administration Epoetin Tarun 10,000 unit 04/27/22 08:15 04/29/22 01:28 Epoetin Tarun 10,000 Unit/Ml Inj SUBCUT Not Given DIALYSIS [facility] Gabapentin 300 mg 04/26/22 09:00 04/29/22 09:52 Gabapentin 300 Mg Capsule PO 300 mg BID@ [facility] Administration Heparin Sodium (Porcine) 5,000 unit 04/26/22 12:00 04/29/22 00:27 Heparin 5,000 Unit/Ml Inj 1 Ml SUBCUT Not Given Q12H GEORGE Piperacillin Sod/Tazobactam 50 mls @ 12.5 mls/hr 04/26/22 08:30 04/29/22 09:50 Sod 3.375 gm/ Sodium Chloride IV 12.5 mls/hr Q12H [facility] Administration Remdesivir 100 mg/ Sodium 100 mls @ 100 mls/hr 04/28/22 04:00 04/29/22 05:56 Chloride IV 05/01/22 04:59 Infused DIALYSIS [facility] Infusion Protocol Insulin Glargine 20 unit 04/27/22 06:00 04/29/22 05:55 Insulin Glargine 100 Units/1 Ml SUBCUT 20 unit QAM GEORGE Administration Insulin Human Lispro 0 unit 04/26/22 08:00 04/29/22 08:00 Insulin Lispro 100 Unit/1 Ml SUBCUT Not Given TIDWM [facility] Protocol Isosorbide Mononitrate 15 mg 04/26/22 09:00 04/29/22 09:52 Isosorbide Mononitrate Er 30 Mg Tablet PO 15 mg BID GEORGE Administration Pantoprazole Sodium 40 mg 04/26/22 09:00 04/29/22 09:[address] 40 Mg Tablet PO 40 mg DAILY GEORGE Administration Polyethylene Glycol 17 gm 04/27/22 14:25 04/29/22 09:52 Polyethylene Glycol 3350 Pkt 17 Gm PO 17 gm BID GEORGE Administration Sevelamer Carbonate 2,400 mg 04/26/22 09:00 04/29/22 09:51 Sevelamer 800 Mg Tablet PO 2,400 mg TID@, GEORGE Administration Spironolactone 25 mg 04/26/22 09:00 04/29/22 09:54 Spironolactone 25 Mg Tablet PO 25 mg DAILY@09 GEORGE Administration Ticagrelor 90 mg 04/26/22 18:00 04/29/22 09:52 Ticagrelor 90 Mg Tablet PO 90 mg BID GEORGE Administration PFSH Acute PFSH: Medical History Accelerated essential hypertension Anemia Atrial fibrillation CAD (coronary artery disease) CHF (congestive heart failure) Chronic anticoagulation Diabetes mellitus ESRD (end stage renal disease) Heart failure Hypercholesteremia LV dysfunction Myocardial infarct Neuropathy MARAL (obstructive sleep apnea) Pacemaker Pneumonia Renal failure Respiratory failure with hypoxia Restrictive lung disease Small airways disease Surgical History Hemodialysis access, AV graft History of colonoscopy with polypectomy 2020 Peritoneal dialysis status (03/02/21) removed S/P cardiac pacemaker procedure S/P cataract surgery S/P dialysis catheter insertion S/P PTCA (percutaneous transluminal coronary angioplasty) Family History Mother Heart disease Social History Smoking and tobacco status: former smoker Quit status (tobacco): has quit using tobacco Year quit tobacco: 1984 Former quit date comment: 3PPD x 17 Years Second hand smoke exposure: No Smoking risk assessment/counseling performed?: No Alcohol intake: never Counseling given: No Counseling given: No Lives independently: Yes Household members: spouse Housing: House Marital status: service: Yes Current occupational status: retired Pets and animals: No History of recent travel: No Current gender identity: Male Vitals/I&O/Wt Last Vital Signs Temp 98.1 F 04/29/22 12:00 Pulse 63 04/29/22 12:00 Resp 18 04/29/22 12:00 BP 139/72 04/29/22 12:00 Pulse Ox 92 04/29/22 12:00 O2 Del Method 04/29/22 12:00 O2 Flow Rate 4 04/29/22 11:40 FiO2 35 04/28/22 22:53 04/28/22 04/29/22 04/29/22 22:59 06:59 14:59 Intake Total 250 / 1410 / 2019 360 / 360 Output Total 0 / 0 Balance 250 / 1410 / 2019 360 / 360 Physical Exam Narrative: General: alert, obese elderly male, on 4 L supplemental oxygen in mild respiratory distress while at rest HEENT: conj clear, EOMI, PERRL, mmm, Neck: supple, no meningismus Heme: no cervical LAP Pulmonary: Reduced breath sounds on right lower lung Cardiovascular: rrr, nl s1s2, no mrg Abdomen: soft, nt, nd, no r/g, bs+ Extremities: pulses +, no edema, no c/c : no CVA tenderness Skin: intact, no rash MSK: no back or neck pain Neurologic: grossly intact Data : 04/29/22 04:32 04/29/22 04:32 Other Labs: Radiology Impressions Chest CT 04/26/22 06:24 IMPRESSION: 1. Unchanged small to medium-sized right pleural effusion with subpulmonic component. Increased right lower lobe small wedge-shaped area of consolidation with air bronchograms. This may represent compressive atelectasis, although pneumonia cannot be excluded. Unchanged mild patchy ground-glass opacities in the left lower lobe dating back to August 10, 2021. These are nonspecific findings, which may be related to post acute COVID-19 syndrome or nonspecific interstitial pneumonitis. 2. Unchanged mild cardiomegaly. Pacemaker leads seen in the heart. Severe coronary arterial atherosclerotic vascular calcifications. Chest X-Ray 04/29/22 13:53 IMPRESSION: 1. No acute findings. 2. The right lower lobe pleural effusion has now been drained 3. Interstitial congestion right lower lobe 4. Negative for pneumothorax. 5. Cardiac device left anterior chest Laboratory Results WBC Cancelled 04/29/22 Unknown Corrected WBC Cancelled 04/29/22 Unknown RBC Cancelled 04/29/22 Unknown Hgb Cancelled 04/29/22 Unknown Hct Cancelled 04/29/22 Unknown MCV Cancelled 04/29/22 Unknown MCH Cancelled 04/29/22 Unknown MCHC Cancelled 04/29/22 Unknown RDW Cancelled 04/29/22 Unknown Plt Count Cancelled 04/29/22 Unknown MPV Cancelled 04/29/22 Unknown Gran % Cancelled 04/29/22 Unknown Neut % (Auto) Cancelled 04/29/22 Unknown Lymph % (Auto) Cancelled 04/29/22 Unknown [place]on % (Auto) Cancelled 04/29/22 Unknown Eos % (Auto) Cancelled 04/29/22 Unknown Baso % (Auto) Cancelled 04/29/22 Unknown Neut # (Auto) Cancelled 04/29/22 Unknown Lymph # (Auto) Cancelled 04/29/22 Unknown [place] # (Auto) Cancelled 04/29/22 Unknown Eos # (Auto) Cancelled 04/29/22 Unknown Baso # (Auto) Cancelled 04/29/22 Unknown Absolute Gran (auto) Cancelled 04/29/22 Unknown Nucleated RBC % (auto) Cancelled 04/29/22 Unknown Nucleated RBCs # Cancelled 04/29/22 Unknown PT 16.00 SECONDS (12.1-14.9) H 04/26/22 04:42 INR 1.24 (0.8-1.2) H 04/26/22 04:42 D-Dimer 0.72 ug/mIFEU (0-0.59) H 04/26/22 04:42 Specimen Type Arterial 04/26/22 04:45 Sample Site Radial, left 04/26/22 04:45 ABG pH 7.40 (7.35-7.45) 04/26/22 04:45 ABG pCO2 44.5 mmHg (35-45) 04/26/22 04:45 ABG pO2 77.9 mmHg (80.0-100.0) L 04/26/22 04:45 ABG HCO3 27.4 mmol/L (22-26) H 04/26/22 04:45 ABG Base Excess 2.2 mmol/L (-2.0-2.0) H 04/26/22 04:45 Carlito Test Pos 04/26/22 04:45 Hematocrit 31.5 % (42-52) L 04/26/22 04:45 O2 Delivery Device Bipap 04/26/22 04:45 FiO2 40.0 % 04/26/22 04:45 Child Welfare Social Worker ID [email or web address] 04/26/22 04:45 Sodium 137 mmol/L (136-145) 04/29/22 04:32 Potassium 4.7 mmol/L (3.5-5.1) 04/29/22 04:32 Chloride 96 mmol/L (98-107) L 04/29/22 04:32 Carbon Dioxide 27 mmol/L (22-29) 04/29/22 04:32 Anion Gap 18.7 (5-19) 04/29/22 04:32 BUN 38 mg/dL (8-23) H 04/29/22 04:32 Creatinine 3.9 mg/dL (0.7-1.2) H 04/29/22 04:32 GFR Calculation Not Reportable 04/29/22 04:32 Glucose 143 mg/dL (65-115) H 04/29/22 04:32 POC Glucose 353 mg/dL (70-110) H 04/29/22 11:01 Calculated Osmolality 296 mOsm/kg (285-295) H 04/29/22 04:32 Uric Acid 6.1 mg/dL (3.4-7.0) 04/26/22 04:42 Calcium 8.7 mg/dL (8.5-10.5) 04/29/22 04:32 Phosphorus 3.8 mg/dL (2.5-4.5) 04/29/22 04:32 Magnesium 2.2 mg/dL (1.7-2.3) 04/29/22 04:32 Iron 46 ug/dL (59-158) L 04/27/22 04:32 TIBC 169 mcg/dl 04/27/22 04:32 % Saturation 27.2 % (20-50) 04/27/22 04:32 Unsat Iron Binding 123 ug/dL (112-347) 04/27/22 04:32 Ferritin 2265 ng/mL (30-400) H 04/27/22 04:32 Total Bilirubin 0.3 mg/dL (0.15-1.2) 04/29/22 04:32 AST 13 U/L (0-40) 04/29/22 04:32 ALT 16 U/L (0-41) 04/29/22 04:32 Alkaline Phosphatase 62 U/L (40-130) 04/29/22 04:32 Troponin T Baseline 124 ng/L (0-15) H* 04/26/22 04:42 Troponin T 120 Minute 115.2 ng/L (0-15) H 04/26/22 06:38 Delta Troponin T -8.8 ABS# (0-10) L 04/26/22 06:38 Troponin T Hi Sens 6Hr 101.6 ng/L (0-15) H 04/26/22 10:51 Troponin T Hi Sens 6Hr Delta -22.4 ng/L (0-12) L 04/26/22 10:51 C-Reactive Protein 22.6 mg/L (0.0-4.9) H 04/29/22 04:32 NT-Pro-B Natriuret Pep 19772 pg/mL (0-450) H 04/26/22 04:42 Total Protein 6.6 g/dL (6.6-8.7) 04/29/22 04:32 Albumin 3.3 g/dL (3.5-5.2) L 04/29/22 04:32 Globulin 3.3 g/dL (1.3-4.6) 04/29/22 04:32 Procalcitonin 0.19 ng/mL (0-0.5) 04/26/22 04:42 PTH Intact 307.9 pg/mL (15-65) H 04/27/22 04:32 Calcium (PTH Intact) 8.5 mg/dL (8.5-10.5) 04/27/22 04:32 Fluid Hematocrit 3.3 % 04/29/22 Unknown Pleural pH 8.00 (6.5-7.5) H 04/29/22 Unknown Coronavirus 229E (PCR) Not detected (NOT DETECT) 04/26/22 04:42 Hep Bs Antigen Non-reactive (Nonreactive) 04/26/22 04:42 Hep Bs Antibody 11.4 (11.5-1000) L 04/26/22 04:42 Hepatitis C Antibody Non-reactive (Nonreactive) 04/26/22 04:42 SARS-CoV-2 (PCR) Detected (NOT DETECT) A 04/26/22 04:42 Micro: Microbiology 04/27/22 18:40 MRSA Culture - Final Nose A&P Assessment and plan (1) Recurrent right pleural effusion: Status: Acute (2) COVID-19: Status: Acute (3) NSTEMI (non-ST elevated myocardial infarction): Status: Acute (4) Congestive heart failure: Status: Acute (5) Pneumonia: Status: Acute (6) End-stage renal disease (ESRD): Status: Acute (7) S/P PTCA (percutaneous transluminal coronary angioplasty): Status: Acute Plan #Dyspnea and patient with recurrent right pleural effusion, COVID-19 positive, #Right lower lobe pneumonia #Etiology of effusion-likely secondary to CHF/ESRD-imaging suggestive of underlying pneumonia-cannot rule out parapneumonic effusion -Underwent? 5 stents placed for CAD August 2022 in [place]- reported patient underwent coronary angiogram 2 weeks ago and was told all stents were patent; echocardiogram on admission reported technically difficult study but ejection fraction 30% still intact -Currently requiring 4 L supplemental oxygen and desaturates on exertion -Requiring BiPAP at nighttime-reported using every night with 2 L oxygen bleed. -Continue hemodialysis as per nephrology -Bedside ultrasound showed significant right pleural effusion-possibly from CHF/ESRD fluid overload but given worsening requirement of FiO2 and infiltrates on CT chest-suspect parapneumonic effusion - patient is on Brilinta and cannot hold due to his recent stents; but based on review of literature-the risk of bleeding and patient on antiplatelets is not increased compared to patient's not on antiplatelets-prior to procedure explained patient and his about potential complications of pneumothorax and bleeding which may require chest tube. They verbalized understanding and agreed with plan -I performed thoracentesis and drained dark bloody colored 1400 cc fluid; pleural fluid hematocrit reported 2.3, fluid analysis reported [place] total protein 4, LDH 287-suggestive of exudative effusion -Pleural fluid cultures, cytology are pending -Postprocedure patient saturations started showing some improvement and recommended respiratory therapy to titrate down FiO2 accordingly, chest x-ray did not show any pneumothorax, no change in hemoglobin hematocrit -Currently on dexamethasone; renally dosed remdesivir on dialysis days, dexamethasone daily -Continue supportive care -Continue Zosyn until pleural culture results are available -Continue daily and nebulization every 6 hours as needed for shortness of breath/wheezing -Okay to discharge with Stiolto and patient will follow in pulmonary clinic -Patient to follow-up with cardiology and nephrology for CAD and ESRD Recommendations conveyed to hospitalist taking care of the patient Consult Attestations Medical Necessity Statement: Deferred to hospitalist Time Spent in Patient Care: Greater than 35 minutes (>than 50% of time spent in counselling and/or direct pt care on unit). Critical Care Time: The high probability of a clinically significant, sudden or life threatening deterioration of the patient's [respiratory] system(s) required my full and direct attention, intervention and personal management. The critical care time is as shown. This time is in addition to time spent performing any reported procedures but includes the following: [x] Data and vital sign review and interpretation [x] Patient assessment, examination and intervention [x] Documentation [x] Medication orders and management Critical Care Time (min): 45 Coding Level of Care Code New Pt Acute Senior Engineer for Chg Fwd Patient Type New History Comprehensive Exam Comprehensive Medical Decision Making Moderate Complexity Diagnoses Recurrent right pleural effusion J90 COVID-19 U07.1 NSTEMI (non-ST elevated myocardial infarction) I21.4 Congestive heart failure I50.9 Pneumonia J18.9 End-stage renal disease (ESRD) N18.6 S/P PTCA (percutaneous transluminal coronary angioplasty) Z98.61 Time Spent (min) 45
--- NOTE | 2022-04-29 13:53 | XRR_ITS ---
PROCEDURE INFORMATION: Exam: XR Chest Exam date and time: 04/29/2022 2:09 PM Age: 77 years old Clinical indication: Device placement; Other: Post right chest thoracentesis; Prior surgery; Surgery type: Pacer TECHNIQUE: Imaging protocol: Radiologic exam of the chest. Views: 1 view. COMPARISON: CT chest [facility] [id number] 04/26/2022 6:54 AM FINDINGS: Tubes, catheters and devices: Cardiac device left anterior chest. Unipolar lead is present in good position. Lungs: Interstitial congestion and prominent bronchovascular markings are seen in the right lower lobe. Pleural spaces: There has been evacuation of prior right lower lobe pleural effusion. No pneumothorax. Heart/Mediastinum: Unremarkable. No cardiomegaly. Bones/joints: Unremarkable. XR/XR chest 1V portable [id number] IMPRESSION: 1. No acute findings. 2. The right lower lobe pleural effusion has now been drained 3. Interstitial congestion right lower lobe 4. Negative for pneumothorax. 5. Cardiac device left anterior chest
--- NOTE | 2022-04-29 14:52 | PM.ACPR ---
Procedure/Consent Time out: Time Out Performed: Yes Consent: Additional Consent Information: Consent signed by patient. Complications including bleeding, pneumothorax which may require chest tube placement are explained to the patient and at bedside. They verbalized understanding and agreed. Procedure Narrative: Pulmonary & Critical Care Medicine Procedure - Ultrasound guided Thoracentesis Procedure: Ultrasound guided Thoracentesis Indication: Right pleural effusion Hearing Care Professional(s): Francis Dodger [facility] Consent: Signed and placed in chart Anesthesia: 10 cc 1% lidocaine without epinephrine Description: CT chest reviewed and Pleural effusion was localized using ultrasound guidance and the appropriate site was marked accordingly. A time out was performed. My hands were washed immediately prior to the procedure. I wore a surgical cap, mask with protective eyewear, sterile gown and sterile gloves throughout the procedure. The patient was placed in appropriate position, area of interest was sterilized with chlorhexidine skin prep and draped in a sterile manner. 1% lidocaine was used to anesthesize the skin, subcutaneous tissue, superior aspect of the rib periosteum and parietal pleura. A finder needle was then introduced over the superior aspect of the rib to locate the pleural fluid; 5 cc dark maroon colored fluid was aspirated. A 10-blade scalpel was used to savana the skin at the insertion site. The Ljfh-i-Sbyvndaw needle was then introduced through the skin incision into the pleural space using negative aspiration pressure and the red colormetric indicator to confirm appropriate positioning of the needle. The thoracentesis catheter was then threaded without difficulty. 1400 CC dark maroon colored fluid was removed without difficulty. The catheter was then removed. No immediate complications were noted during the procedure. The fluid will be sent for studies. Estimated blood loss is 5 - 10 CC. Ultrasound guidance used: Yes. EBL: 5 to 10 cc Complications: None PCXR: A post-procedure chest x-ray did not show pneumothorax. Acute Procedures Epistaxis Control: Time out performed: Yes
[2022-04-29] MEDS: heparin 5,000 unit/mL INJ 1 mL 5000 UNIT SUBCUT (15:03)
[2022-04-29] MEDS: insulin lispro 100 unit/1 mL SUBCUT ×2 (15:05→18:07)
[2022-04-29 15:07] LABS: Hematocrit Body Fluid 3.3 %
[2022-04-29 15:09] LABS: Basophils % 0.2 %; Eosinophils % 0.2 %; Hemoglobin 10.8 g/dL (11.7-16.6); Lymphocytes # 0.4 10^3/uL (0.8-4.8); Lymphocytes % 6.9 %; Mean Corpuscular HGB Conc 32.7 g/dL (30.0-36.0); Mean Corpuscular Hemoglobin 30.7 pg (28.0-34.0); Mean Corpuscular Volume 93.8 fl (80-94); Mean Platelet Volume 10.2 fL (7.4-10.4); Monocytes # 0.2 10^3/uL (0.2-0.9); Monocytes % 3.5 %; Neutrophils # 5.44 10^3/uL (1.8-7.7); Neutrophils % 87.6 %; Nucleated Red Blood Cells % 0 %; Platelet Count 182 10^3/cmm (130-400); Red Blood Count 3.52 10^6/uL (4.1-5.3); Red Cell Distribution Width 17.4 % (12.1-15.1); White Blood Count 6.2 10^3/uL (4.0-10.0)
[2022-04-29 15:23] LABS: Albumin Body Fluid 2.1 g/dL; Creatinine Body Fluid 4.33 (0.7-1.2); Cyto Order Verification Y; LDH Pleural Fluid 287 U/L; Triglycerides, Pleural Fluid 39 mg/dL
[2022-04-29] MEDS: atorvastatin 40 mg Tablet 80 MG PO (17:52)
[2022-04-29 18:02] LABS: Glucose Point of Care 410 mg/dL (70-110)
--- NOTE | 2022-04-29 19:50 | XRR_ITS ---
PROCEDURE INFORMATION: Exam: XR Chest Exam date and time: 04/29/2022 7:56 PM Age: 77 years old Clinical indication: Other: Post thoracentesis TECHNIQUE: Imaging protocol: Radiologic exam of the chest. Views: 1 view. COMPARISON: CR XR chest 1V portable [id number] 04/29/2022 2:09 PM FINDINGS: Tubes, catheters and devices: Stable left pacemaker. Lungs: Mild right basilar atelectasis and/or infiltrate and/or effusion. Pleural spaces: Unremarkable. No pleural effusion. No pneumothorax. Heart/Mediastinum: Stable cardiomegaly. Vasculature: Calcification of the thoracic aorta and/or great vessels consistent with atherosclerotic vessel disease. Bones/joints: Unremarkable. Soft tissues: Lordotic chest x-ray. XR/XR chest 1V portable [id number] IMPRESSION: 1. Stable cardiomegaly. 2. Mild right basilar atelectasis and/or infiltrate and/or effusion.
[2022-04-29 21:18] LABS: Glucose Point of Care 215 mg/dL (70-110)
[2022-04-30] VITALS (8 sets, daily range): BP systolic 122–131; BP diastolic 58–74; PULSE 61–68; RESP 15–19; TEMP 36.1–36.5; O2SAT 92–98
[2022-04-30 02:40] LABS: Basophils % 0.2 %; Hematocrit 29.3 % (42.0-52.0); Hemoglobin 9.3 g/dL (11.7-16.6); Lymphocytes # 0.9 10^3/uL (0.8-4.8); Lymphocytes % 10.9 %; Mean Corpuscular HGB Conc 31.7 g/dL (30.0-36.0); Mean Corpuscular Hemoglobin 30.3 pg (28.0-34.0); Mean Corpuscular Volume 95.4 fl (80-94); Mean Platelet Volume 9.6 fL (7.4-10.4); Monocytes # 0.9 10^3/uL (0.2-0.9); Monocytes % 10.9 %; Neutrophils # 6.25 10^3/uL (1.8-7.7); Neutrophils % 76.4 %; Nucleated Red Blood Cells % 0.2 %; Platelet Count 199 10^3/cmm (130-400); Red Blood Count 3.07 10^6/uL (4.1-5.3); Red Cell Distribution Width 17.4 % (12.1-15.1); White Blood Count 8.2 10^3/uL (4.0-10.0)
[2022-04-30 03:04] LABS: Alanine Aminotransferase 17 U/L (0-41); Albumin Level 3.2 g/dL (3.5-5.2); Alkaline Phosphatase 60 U/L (40-130); Anion Gap 19.2 (5-19); Aspartate Amino Transferase 10 U/L (0-40); Blood Urea Nitrogen 59 mg/dL (8-23); Calcium 8.9 mg/dL (8.5-10.5); Carbon Dioxide 26 mmol/L (22-29); Chloride 97 mmol/L (98-107); Glucose 134 mg/dL (65-115); Osmolality Calculated 303 mOsm/kg (285-295); Phosphorus 3.6 mg/dL (2.5-4.5); Potassium 5.2 mmol/L (3.5-5.1); Sodium 137 mmol/L (136-145); Total Bilirubin 0.3 mg/dL (0.15-1.2); Total Protein 6.2 g/dL (6.6-8.7)
[2022-04-30] MEDS: remdesivir 100 MG in sodium chloride 0.9% (100 ml) 80 ML IV (04:04)
[2022-04-30] MEDS: heparin 5,000 unit/mL INJ 1 mL 5000 UNIT SUBCUT ×2 (04:04→12:58)
[2022-04-30 06:48] LABS: Glucose Point of Care 190 mg/dL (70-110)
[2022-04-30] MEDS: insulin glargine 100 units/1 mL 20 UNIT SUBCUT (06:51)
--- NOTE | 2022-04-30 06:56 | XR_ITS ---
WS: [id number] Portable AP upright chest, 04/30/2022 Clinical Data: right pleural effusion Comparison: Portable chest, 04/29/2022. Findings: The right basilar opacification probably represents effusion, pneumonia and atelectasis rem ains the same. The heart is enlarged. No left pleural effusion is seen. The aortic arch and descendin g thoracic aorta show calcification and tortuosity. The single lead pacemaker remains in same positio n. Monitor leads are on the chest wall. XR/XR chest 1V portable [id number] Impression: 1. No change in right basilar opacity. 2. No change in atherosclerosis and cardiomegaly.
[2022-04-30] MEDS: dexamethasone 10 mg/mL INJ 6 MG IVP (07:01)
[2022-04-30] MEDS: budesonide 0.5 mg/2 mL Neb INHALATION (08:00)
[2022-04-30] MEDS: ipratropium-albuterol 3 mL Neb INHALATION ×2 (08:00→13:04)
[2022-04-30 08:22] LABS: Glucose Point of Care 154 mg/dL (70-110)
--- NOTE | 2022-04-30 09:27 | PM.DCS ---
Discharge Providers Date of Admission: 04/26/22 08:07 Date of Discharge: April 30, 2022 Attending Provider at Admission: Ron Piña MD Attending Provider at Discharge: Ron Piña MD Primary Care Provider: Adria Artis DO Diagnoses at Discharge Discharge Diagnosis (1) Recurrent right pleural effusion: Status: Acute (2) COVID-19: Status: Acute (3) NSTEMI (non-ST elevated myocardial infarction): Status: Acute (4) Congestive heart failure: Status: Acute (5) Pneumonia: Status: Acute (6) End-stage renal disease (ESRD): Status: Acute (7) S/P PTCA (percutaneous transluminal coronary angioplasty): Status: Acute Reason for Visit Reason for Visit: low O2 Hospital Course Hospital Course Patient presented to the hospital with severe dyspnea on exertion. He had had a cough with some yellowish sputum. He has history of end-stage renal disease on dialysis but had not missed any dialysis. He had also recently had an angiogram, per cardiology in [place] to make sure that he had no stent closure. From his verbal report there was no concerns with this. He was placed in the hospital, and found to have COVID. He was started on remdesivir and dexamethasone. Antibiotics were started in case of pneumonia. MRSA PCR was negative. There was evidence of fluid overload on his chest x-ray and aggressive dialysis and ultrafiltration occurred. With this treatment he improved and was able to be taken off BiPAP that was required on admission. However, he was still very exertionally short of breath. On admission he was found to have a right lung pleural effusion moderate in nature by CT scan. It was thought this was secondary to heart failure, but with limited improvement with aggressive dialysis pulmonary was consulted for consideration of thoracentesis. This occurred on April 29, with approximately 1200 cc removed. Following this he had much less shortness of breath, and I was able to ambulate without dropping his saturation on 4 L of oxygen. Pleural fluid was exudative in nature, but not thought to be infected. Multiple studies were sent including cytology. It was thought he could be discharged on April 30, home with close follow-up with nephrology, his primary care provider, as well as pulmonary. Pulmonary will see him in 1 week and follow-up on his studies. He will finish 7 days of doxycycline. His Eliquis will be reduced to 2.5 mg twice daily. He will continue 4 L of oxygen which she was on at baseline on admission. Sputum, blood culture, pleural fluid culture were all negative at time of discharge. Patient was given time to ask questions, and agreed with the plan. Physical Exam Narrative: General exam no distress Neck is supple no lymphadenopathy or thyromegaly Cardiovascular regular rate and rhythm without murmur Lungs clear no wheezing or crackles. Diminished breath sounds are noted at the bases Abdomen is soft nontender with positive bowel sounds Extremities trace edema, AV fistula right upper extremity with thrill and bruit. No cyanosis or clubbing Discharge Data Studies Completed and Pending Completed Studies During Hospitalization Category Date Time Status CT chest wo con [id number] Stat Cat Scan 04/26/22 06:24 Completed XR chest 1V portable [id number] Routine Exams 04/30/22 06:56 Completed XR chest 1V portable [id number] Stat Exams 04/26/22 04:36 Completed XR chest 1V portable [id number] Stat Exams 04/29/22 13:53 Completed XR chest 1V portable [id number] Stat Exams 04/29/22 19:50 [place] [id number] Stat Ultrasound 04/26/22 06:11 Completed CV. echo wo/w contrast [id number] Stat Ultrasound 04/26/22 06:11 Completed Pending at discharge Category Date Time Status Blood Culture Stat Lab 04/26/22 06:42 Results Body Fluid Culture & GS Routine Lab 04/29/22 Results Mycobacteria, Culture w/Fluor Routine Lab 04/29/22 13:51 Received Sputum Culture and Gram Stain Stat Lab 04/29/22 14:30 Results Cytology [PTH] Routine Pth 04/29/22 13:51 Received Radiology Impressions Chest CT 04/26/22 06:24 IMPRESSION: 1. Unchanged small to medium-sized right pleural effusion with subpulmonic component. Increased right lower lobe small wedge-shaped area of consolidation with air bronchograms. This may represent compressive atelectasis, although pneumonia cannot be excluded. Unchanged mild patchy ground-glass opacities in the left lower lobe dating back to August 10, 2021. These are nonspecific findings, which may be related to post acute COVID-19 syndrome or nonspecific interstitial pneumonitis. 2. Unchanged mild cardiomegaly. Pacemaker leads seen in the heart. Severe coronary arterial atherosclerotic vascular calcifications. Chest X-Ray 04/30/22 06:56 Impression: 1. No change in right basilar opacity. 2. No change in atherosclerosis and cardiomegaly. Laboratory Results WBC 8.2 10^3/uL (4.0-10.0) 04/30/22 01:42 Corrected WBC Cancelled 04/29/22 Unknown RBC 3.07 10^6/uL (4.1-5.3) L 04/30/22 01:42 Hgb 9.3 g/dL (11.7-16.6) L 04/30/22 01:42 Hct 29.3 % (42.0-52.0) L 04/30/22 01:42 MCV 95.4 fl (80-94) H 04/30/22 01:42 MCH 30.3 pg (28.0-34.0) 04/30/22 01:42 MCHC 31.7 g/dL (30.0-36.0) 04/30/22 01:42 RDW 17.4 % (12.1-15.1) H 04/30/22 01:42 Plt Count 199 10^3/cmm (130-400) 04/30/22 01:42 MPV 9.6 fL (7.4-10.4) 04/30/22 01:42 Gran % Cancelled 04/29/22 Unknown Neut % (Auto) 76.4 % 04/30/22 01:42 Lymph % (Auto) 10.9 % 04/30/22 01:42 [place] % (Auto) 10.9 % 04/30/22 01:42 Eos % (Auto) 0.0 % 04/30/22 01:42 Baso % (Auto) 0.2 % 04/30/22 01:42 Neut # (Auto) 6.25 10^3/uL (1.8-7.7) 04/30/22 01:42 Lymph # (Auto) 0.9 10^3/uL (0.8-4.8) 04/30/22 01:42 [place] # (Auto) 0.9 10^3/uL (0.2-0.9) 04/30/22 01:42 Eos # (Auto) 0.0 10^3/uL (0.0-0.8) 04/30/22 01:42 Baso # (Auto) 0.0 10^3/uL (0.0-0.1) 04/30/22 01:42 Absolute Gran (auto) Cancelled 04/29/22 Unknown Nucleated RBC % (auto) 0.2 % 04/30/22 01:42 Nucleated RBCs # 0.0 /100WBC 04/30/22 01:42 PT 16.00 SECONDS (12.1-14.9) H 04/26/22 04:42 INR 1.24 (0.8-1.2) H 04/26/22 04:42 D-Dimer 0.72 ug/mIFEU (0-0.59) H 04/26/22 04:42 Specimen Type Arterial 04/26/22 04:45 Sample Site Radial, left 04/26/22 04:45 ABG pH 7.40 (7.35-7.45) 04/26/22 04:45 ABG pCO2 44.5 mmHg (35-45) 04/26/22 04:45 ABG pO2 77.9 mmHg (80.0-100.0) L 04/26/22 04:45 ABG HCO3 27.4 mmol/L (22-26) H 04/26/22 04:45 ABG Base Excess 2.2 mmol/L (-2.0-2.0) H 04/26/22 04:45 Carlito Test Pos 04/26/22 04:45 Hematocrit 31.5 % (42-52) L 04/26/22 04:45 O2 Delivery Device Bipap 04/26/22 04:45 FiO2 40.0 % 04/26/22 04:45 Grout Machine Tender ID [email or web address] 04/26/22 04:45 Sodium 137 mmol/L (136-145) 04/30/22 01:42 Potassium 5.2 mmol/L (3.5-5.1) H 04/30/22 01:42 Chloride 97 mmol/L (98-107) L 04/30/22 01:42 Carbon Dioxide 26 mmol/L (22-29) 04/30/22 01:42 Anion Gap 19.2 (5-19) H 04/30/22 01:42 BUN 59 mg/dL (8-23) H 04/30/22 01:42 Creatinine 4.8 mg/dL (0.7-1.2) H 04/30/22 01:42 GFR Calculation Not Reportable 04/30/22 01:42 Glucose 134 mg/dL (65-115) H 04/30/22 01:42 POC Glucose 154 mg/dL (70-110) H 04/30/22 07:26 Calculated Osmolality 303 mOsm/kg (285-295) H 04/30/22 01:42 Uric Acid 6.1 mg/dL (3.4-7.0) 04/26/22 04:42 Calcium 8.9 mg/dL (8.5-10.5) 04/30/22 01:42 Phosphorus 3.6 mg/dL (2.5-4.5) 04/30/22 01:42 Magnesium 2.2 mg/dL (1.7-2.3) 04/29/22 04:32 Iron 46 ug/dL (59-158) L 04/27/22 04:32 TIBC 169 mcg/dl 04/27/22 04:32 % Saturation 27.2 % (20-50) 04/27/22 04:32 Unsat Iron Binding 123 ug/dL (112-347) 04/27/22 04:32 Ferritin 2265 ng/mL (30-400) H 04/27/22 04:32 Total Bilirubin 0.3 mg/dL (0.15-1.2) 04/30/22 01:42 AST 10 U/L (0-40) 04/30/22 01:42 ALT 17 U/L (0-41) 04/30/22 01:42 Alkaline Phosphatase 60 U/L (40-130) 04/30/22 01:42 Troponin T Baseline 124 ng/L (0-15) H* 04/26/22 04:42 Troponin T 120 Minute 115.2 ng/L (0-15) H 04/26/22 06:38 Delta Troponin T -8.8 ABS# (0-10) L 04/26/22 06:38 Troponin T Hi Sens 6Hr 101.6 ng/L (0-15) H 04/26/22 10:51 Troponin T Hi Sens 6Hr Delta -22.4 ng/L (0-12) L 04/26/22 10:51 C-Reactive Protein 22.6 mg/L (0.0-4.9) H 04/29/22 04:32 NT-Pro-B Natriuret Pep 37646 pg/mL (0-450) H 04/26/22 04:42 Total Protein 6.2 g/dL (6.6-8.7) L 04/30/22 01:42 Albumin 3.2 g/dL (3.5-5.2) L 04/30/22 01:42 Globulin 3.0 g/dL (1.3-4.6) 04/30/22 01:42 Procalcitonin 0.19 ng/mL (0-0.5) 04/26/22 04:42 PTH Intact 307.9 pg/mL (15-65) H 04/27/22 04:32 Calcium (PTH Intact) 8.5 mg/dL (8.5-10.5) 04/27/22 04:32 Fluid Hematocrit 3.3 % 04/29/22 Unknown Fluid Albumin 2.1 g/dL 04/29/22 Unknown Fluid Creatinine 4.33 (0.7-1.2) H 04/29/22 Unknown Pleural pH 8.00 (6.5-7.5) H 04/29/22 Unknown Pleural Total Protein 4.0 g/dL 04/29/22 Unknown Pleural LDH 287 U/L 04/29/22 Unknown Pleural Glucose 198.0 mg/dL 04/29/22 Unknown Pleural Amylase 27.0 U/L 04/29/22 Unknown Pleural Triglycerides 39 mg/dL 04/29/22 Unknown Coronavirus 229E (PCR) Not detected (NOT DETECT) 04/26/22 04:42 Hep Bs Antigen Non-reactive (Nonreactive) 04/26/22 04:42 Hep Bs Antibody 11.4 (11.5-1000) L 04/26/22 04:42 Hepatitis C Antibody Non-reactive (Nonreactive) 04/26/22 04:42 SARS-CoV-2 (PCR) Detected (NOT DETECT) A 04/26/22 04:42 Vitals Last Vital Signs Temp 97.7 F 04/30/22 08:00 Pulse 63 04/30/22 08:01 Resp 18 04/30/22 08:01 BP 122/69 04/30/22 08:00 Pulse Ox 96 04/30/22 08:01 O2 Del Method 04/30/22 08:01 O2 Flow Rate 4 04/30/22 08:01 FiO2 35 04/30/22 00:55 Discharge Plan Discharge Patient Disposition: Home Condition: Stable Prescriptions: New Eliquis 2.5 mg tablet 2.5 mg PO BID Qty: 60 0RF dexamethasone 6 mg tablet 6 mg PO DAILY Qty: 1 0RF doxycycline hyclate 100 mg capsule 100 mg PO BID 7 Days Qty: 14 0RF Continued atorvastatin 80 mg tablet 80 mg PO DAILY@1800 nifedipine 60 mg tablet extended release 60 mg PO DAILY@09 Mircera 30 mcg/0.3 mL syringe 60 mcg SUBCUT Q14D gabapentin 300 mg capsule 300 mg PO BID@09,18 sevelamer carbonate [Renvela] 800 mg tablet 2,400 mg PO TID@09,12,18 spironolactone 25 mg tablet 25 mg PO DAILY@09 albuterol sulfate 90 mcg/actuation HFA aerosol inhaler 2 puff inhalation Q6H PRN (Reason: shortness of breath or wheezing) 30 Days Qty: 8.5 3RF famotidine [Pepcid] 20 mg tablet 20 mg PO BID@,18 Saxenda 3 mg/0.5 mL (18 mg/3 mL) pen injector 3 mg SUBCUT DAILY PRN (Reason: weight loss) Rx Instructions: ( states not taken since oct) Daliresp 250 mcg tablet 250 - 500 mcg PO DAILY cholecalciferol (vitamin D3) 50 mcg (2,000 unit) capsule 50 mcg PO QAM isosorbide mononitrate 30 mg tablet extended release 24 hr 15 mg PO BID Qty: 90 3RF allopurinol 100 mg Tablet 100 mg PO DAILY PRN (Reason: Gout) oxycodone-acetaminophen 5-325 mg Tablet 1 tab PO BEDTIME Rx Instructions: May also take 1/2 tab prn polyethylene glycol 3350 [Miralax] 17 gram/dose Powder 17 g PO DAILY PRN (Reason: Constipation) docusate sodium 100 mg Capsule 200 mg PO BID@09,18 insulin glargine [Lantus U-100 Insulin] 100 unit/mL Solution 50 unit SUBCUT QAM Stiolto Respimat 2.5-2.5 mcg/actuation mist 2 puff inhalation QAM albuterol sulfate 2.5 mg /3 mL (0.083 %) Solution For Nebulization 2.5 mg inhalation Q6H PRN (Reason: Shortness Of Breath) lidocaine-prilocaine 2.5-2.5 % Cream 1 applic topical TID PRN (Reason: Pain) gentamicin 0.1 % Cream 1 applic TOPICAL TID PRN (Reason: unknown) cinacalcet 30 mg Tablet 30 mg PO .THREE TIMES A WEEK Rx Instructions: at dialysis carvedilol 6.25 mg Tablet 3.125 mg PO BID Fish Oil Concentrate 1,000 mg Capsule 1,000 mg PO BID@ Zyrtec 10 mg Tablet 10 mg PO DAILY@18 Zofran 8 mg Tablet 4 mg PO Q6H PRN (Reason: Nausea And Vomiting) Nitrostat 0.4 mg Tablet, Sublingual 0.4 mg SUBLINGUAL Q5M PRN (Reason: Chest Pain) Rx Instructions: do not exceed 3 doses per episode Renal Multivitamin Formula 0.8 mg Tablet 1 tab PO QAM magnesium 250 mg Tablet 250 mg PO QAM Hectorol 1 mcg Capsule 1 mcg PO .THREE TIMES A WEEK Brilinta 90 mg Tablet 90 mg PO BID Discontinued Eliquis 5 mg tablet 5 mg PO BID@18 30 Days Qty: 60 0RF Discharge Orders: Discharge Order (Routine); Ordered 04/30/22 Ordered By: Ron Piña Other Ambulatory Orders: DME: Oxygen (Order) Location: None Selected Ordered By: Ron Piña Referrals: [facility] Provider,Nephrology MD [facility] [[facility]] - 4-7 days (Sent fax to [facility] Nephrology. Will be calling patient with appointment date and time.) Adria Artis DO [Primary Care Provider] - 05/04/22 1:00 pm Nuno Adan MD [Physician] - 05/12/22 9:15 am (follow up pleural effusion) Discharge Diet: Diabetic Discharge Activity: Increase activity as tolerated Patient Instructions: Opioid Safety Activity Restrictions/Additional Instructions: Follow renal dialysis diet. Take all medicine as prescribed. Return for any concerns. Follow-up with pulmonary regarding effusion, nephrology regarding continued dialysis, primary care provider 3 to 5 days. Please keep quarantine 10 days after start of symptoms, or when first test completed that was positive, which you reported April 23. May discharge following dialysis today. Discharge Attestations Time Spent in Discharge Care*: greater than 30 min Quality Metrics Clinical Quality Measures [ No reported AMI, CVA or VTE this stay] Coding Level of Care Code Acute Chg FW DC note Diagnoses Recurrent right pleural effusion J90 COVID-19 U07.1 NSTEMI (non-ST elevated myocardial infarction) I21.4 Congestive heart failure I50.9 Pneumonia J18.9 End-stage renal disease (ESRD) N18.6 S/P PTCA (percutaneous transluminal coronary angioplasty) Z98.61
[2022-04-30] MEDS: isosorbide mononitrate ER 30 mg Tablet 15 MG PO ×2 (09:44→18:40)
[2022-04-30] MEDS: pantoprazole DR 40 mg Tablet PO (09:44)
[2022-04-30] MEDS: sevelamer 800 mg Tablet 2400 MG PO ×3 (09:44→18:40)
[2022-04-30] MEDS: carvedilol 3.125 mg Tablet PO (09:44)
[2022-04-30] MEDS: gabapentin 300 mg Capsule PO ×2 (09:44→18:40)
[2022-04-30] MEDS: ticagrelor 90 mg Tablet PO ×2 (09:44→18:40)
[2022-04-30] MEDS: spironolactone 25 mg Tablet PO (09:47)
[2022-04-30] MEDS: insulin lispro 100 unit/1 mL SUBCUT ×3 (09:47→18:40)
[2022-04-30] MEDS: polyethylene glycol 3350 Pkt 17 gm PO ×2 (09:47→18:40)
[2022-04-30] MEDS: piperacillin-tazobactam 3.375 GM in sodium chloride 0.9% (plus) 50 ML IV (09:48)
--- NOTE | 2022-04-30 10:09 | PC.NURSE ---
Verbal order: Doxycycline 100mg one time waste pipercillin due to infiltrated IV
[2022-04-30] MEDS: doxycycline 100 mg Tablet PO (10:51)
[2022-04-30 11:41] LABS: Glucose Point of Care 284 mg/dL (70-110)
--- NOTE | 2022-04-30 12:59 | PM.PN ---
Subjective Subjective: Feeling much better after thoracentesis Vitals/I&O/Wt Last Vital Signs Temp 97.7 F 04/30/22 08:00 Pulse 63 04/30/22 08:01 Resp 18 04/30/22 08:01 BP 122/69 04/30/22 08:00 Pulse Ox 96 04/30/22 08:01 O2 Del Method 04/30/22 08:01 O2 Flow Rate 4 04/30/22 08:01 FiO2 35 04/30/22 00:55 04/29/22 04/30/22 04/30/22 22:59 06:59 14:59 Intake Total 530 / 1130 270 / 1400 240.375 / 240.375 Balance 530 / 1130 270 / 1400 240.375 / 240.375 Data : 04/30/22 01:42 04/30/22 01:42 Micro: Microbiology 04/29/22 14:30 Gram Stain - Final Sputum - Expectorated Sputum Sputum Culture - Preliminary 04/29/22 Unknown Gram Stain - Final Pleural Fluid Body Fluid Culture - Preliminary A&P Assessment and plan (1) End-stage renal disease (ESRD): Status: Acute Plan Seen and examined via telemedicine with assistance of RN at bedside. 1. ESRD, HD MWF 2. Fluid overload 3. COVID Pneumonia 4. Hyponatremia, resolved 5. Anemia, stable, iron replete, epogen at dialysis HD today, 2.5 L UF/3.5h as BP tolerates. Continue HD MWF Attestations Medical Necessity Statement*: see above Time Spent in Patient Care: 16 - 35 minutes Coding Level of Care Code Acute Sales Relationship Manager for Aurelia Chaudhari Diagnoses End-stage renal disease (ESRD) N18.6
[2022-04-30 17:42] LABS: Glucose Point of Care 185 mg/dL (70-110)
[2022-04-30] MEDS: atorvastatin 40 mg Tablet 80 MG PO (18:40)
--- NOTE | 2022-04-30 18:54 | PC.NURSE ---
Discharge Note Patient discharged to home via wheelchair accompanied by spouse. Discharge instructions reviewed with patient and/or financial services sales representative. Mobile pharmacy medications and/or prescriptions provided. Belongings/home medications returned.
== END 2022-04-30 18:54 | disposition home or self-care (01) | DRG 177 ==
LOC: ER 05:36 → MEDSURG 09:03
PROVIDERS: Family Medicine; Internal Medicine Nephrology; Internal Medicine Pulmonary Disease; Admitting Provider Internal Medicine; Emergency Provider Emergency Medicine; PCP Emergency Medicine Emergency Medical Services; Visit Provider Internal Medicine
DX: U07.1 COVID-19 (principal); I21.A1 Myocardial infarction type 2; I50.23 Acute on chronic systolic (congestive) heart failure; N18.6 End stage renal disease; J18.9 Pneumonia, unspecified organism; J96.01 Acute respiratory failure with hypoxia; I13.2 Hypertensive heart and chronic kidney disease with heart failure and with stage 5 chronic kidney disease, or end stage renal disease; J90 Pleural effusion, not elsewhere classified; E87.1 Hypo-osmolality and hyponatremia; E11.22 Type 2 diabetes mellitus with diabetic chronic kidney disease; Z99.2 Dependence on renal dialysis; D63.1 Anemia in chronic kidney disease; I48.91 Unspecified atrial fibrillation; I25.10 Atherosclerotic heart disease of native coronary artery without angina pectoris; Z95.5 Presence of coronary angioplasty implant and graft; E78.00 Pure hypercholesterolemia, unspecified; I25.2 Old myocardial infarction; G47.33 Obstructive sleep apnea (adult) (pediatric); Z95.0 Presence of cardiac pacemaker; Z79.02 Long term (current) use of antithrombotics/antiplatelets; Z79.4 Long term (current) use of insulin; Z79.891 Long term (current) use of opiate analgesic; Z79.51 Long term (current) use of inhaled steroids; E66.9 Obesity, unspecified; Z87.891 Personal history of nicotine dependence; Z87.01 Personal history of pneumonia (recurrent)
CPT/HCPCS: 36415; 36416; 36600; 71045; 71250; 80053; 82042; 82150; 82310; 82570; 82728; 82803; 82945; 82962; 83540; 83550; 83615; 83735; 83880; 83970; 83986; 84100; 84145; 84157; 84478; 84484; 84550; 85014; 85025; 85378; 85610; 86140; 86706; 86803; 87015; 87040; 87070; 87075; 87116; 87205; 87206; 87340; 87635; 87641; 87801; 88108; 93005; 93306; 93970; 94640; 94660; 94760; 94762; 96365; 96367; 96372; 96375; 99285; C8929; J1100; J1644; J1815; J2543; J2930; J7626; Q4081; Q9956

== ENCOUNTER → 2022-06-07 15:15 | Outpatient (BNVA) | payer OTHER, SELFPAY | PROVIDERS: PCP Emergency Medicine Emergency Medical Services; Visit Provider Internal Medicine Pulmonary Disease | DX: J90 Pleural effusion, not elsewhere classified (principal); J98.4 Other disorders of lung; I50.9 Heart failure, unspecified; N18.6 End stage renal disease; Z99.2 Dependence on renal dialysis; R53.82 Chronic fatigue, unspecified; U09.9 Post COVID-19 condition, unspecified; Z87.891 Personal history of nicotine dependence; I25.10 Atherosclerotic heart disease of native coronary artery without angina pectoris; Z95.5 Presence of coronary angioplasty implant and graft | CPT/HCPCS: 99204; 99214 ==

== ENCOUNTER → 2022-06-18 09:10 | Outpatient (BNVA) | payer OTHER, SELFPAY | PROVIDERS: PCP Emergency Medicine Emergency Medical Services; Visit Provider Internal Medicine Cardiovascular Disease | DX: I13.2 Hypertensive heart and chronic kidney disease with heart failure and with stage 5 chronic kidney disease, or end stage renal disease (principal); E11.22 Type 2 diabetes mellitus with diabetic chronic kidney disease; N18.6 End stage renal disease; I50.9 Heart failure, unspecified; Z79.84 Long term (current) use of oral hypoglycemic drugs; Z79.4 Long term (current) use of insulin; Z87.891 Personal history of nicotine dependence; I48.91 Unspecified atrial fibrillation; Z79.01 Long term (current) use of anticoagulants; I25.10 Atherosclerotic heart disease of native coronary artery without angina pectoris; Z95.0 Presence of cardiac pacemaker | CPT/HCPCS: 93279; 99214 ==

== ENCOUNTER 2022-07-14 06:00 | Outpatient (RCR) | payer OTHER, SELFPAY ==
--- NOTE | 2022-07-15 16:22 | PC.PULMREH ---
Patient attended Pulmonary Rehab Education Class.
== END 2022-08-11 23:59 | disposition home or self-care (01) ==
LOC: TPT 06:00
PROVIDERS: PCP Emergency Medicine Emergency Medical Services; Visit Provider Internal Medicine Pulmonary Disease
DX: R53.81 Other malaise (principal); U07.1 COVID-19; J98.4 Other disorders of lung
CPT/HCPCS: 97110; 97163

== ENCOUNTER 2022-08-12 06:00 | Outpatient (RCR) | payer OTHER, SELFPAY | END 2022-09-11 23:59 | disposition home or self-care (01) | LOC: TPT 06:00 | PROVIDERS: PCP Emergency Medicine Emergency Medical Services; Visit Provider Internal Medicine Pulmonary Disease | DX: R53.81 Other malaise (principal); U07.1 COVID-19; J98.4 Other disorders of lung | CPT/HCPCS: 97110 ==

== ENCOUNTER 2022-08-23 14:50 | Outpatient (CLI) | payer OTHER, SELFPAY ==
--- NOTE | 2022-08-23 14:56 | USCV_ITS ---
Shon Mullen Age: 77 Gender: M : 1945 Exam Date: 08/23/2022 15:31 Ordering Phys: Anne Mendoza MD ([email or web address]) Technologist: Heydi Man [place] [facility] [place]ication: Assess LV function BP: 139 / 78 HR: 60 Rhythm: Sinus Technical Quality: Adequate MEASUREMENTS (Male / Female) Normal Values 2D ECHO LV Diastolic Diameter PLAX 4.4 cm 4.2 - 5.9 / 3.9 - 5.3 cm LV Systolic Diameter PLAX 3.2 cm LV Chamber Size 4.5 cm IVS Diastolic Thickness 1.2 cm 0.6 - 1.0 / 0.6 - 0.9 cm IVS Systolic Thickness 1.8 cm LVPW Diastolic Thickness 2.0 cm 0.6 - 1.0 / 0.6 - 0.9 cm LVPW Systolic Thickness 1.8 cm RV Chamber Size 3.3 cm LVOT Diameter 2.0 cm LV Ejection Fraction 2D Teich 55.6 % LV Ejection Fraction MOD 2C 30.4 % LV Ejection Fraction 2C AL 31.0 % LA Diameter 2.9 cm LA Width 3.3 cm LA Height 4.5 cm RA Width 4.1 cm RA Height 4.4 cm Aorta at Sinotubular Diameter 2.5 cm FINDINGS Left Ventricle Dilated left ventricle. Moderately decreased left ventricular systolic function. Left ventricular ejection fraction is estimated at 35 %. Moderate global hypokinesis. Abnormal septal motion consistent with pacemaker. Right Ventricle Normal right ventricular size and normal systolic function. Pacemaker wire visualized in the right ventricle. Right Atrium Normal right atrial size. Left Atrium Mildly increased left atrial size. Mitral Valve Mildly thickened mitral valve. Trace mitral valve regurgitation. Aortic Valve Aortic valve not well visualized. Tricuspid Valve Structurally normal tricuspid valve. Pulmonic Valve Structurally normal pulmonic valve. Pericardium No pericardial effusion. Aorta Normal size aortic root and proximal ascending aorta. IVC Inferior vena cava not visualized. CONCLUSIONS 1. This was a technically difficult study. Optison was used per protocol. 2. Upper normal left ventricle cavity size. Moderately decreased left ventricular systolic function. Left ventricular ejection fraction is estimated at 35 %. Moderate global hypokinesis. 3. When compared to previous study dated 04/26/2022, left ventricular systolic function seems to have improved somewhat. Anne Mendoza MD (Electronically Signed) Final Date: 26 August 2022 14:21 S
[2022-08-23] MEDS: perflutren protein-a microsphr 0.22 mg/mL SDV 3 mL IV (16:04)
== END 2022-08-23 14:51 | disposition home or self-care (01) ==
LOC: RAD 14:51
PROVIDERS: PCP Emergency Medicine Emergency Medical Services; Visit Provider Internal Medicine Cardiovascular Disease
DX: R06.02 Shortness of breath (principal); I25.10 Atherosclerotic heart disease of native coronary artery without angina pectoris; I48.91 Unspecified atrial fibrillation
CPT/HCPCS: C8924; Q9956

== ENCOUNTER 2022-09-12 06:00 | Outpatient (RCR) | payer OTHER, SELFPAY | END 2022-09-15 23:59 | disposition home or self-care (01) | LOC: TPT 06:00 | PROVIDERS: PCP Emergency Medicine Emergency Medical Services; Visit Provider Internal Medicine Pulmonary Disease | DX: R53.81 Other malaise (principal); U07.1 COVID-19; J98.4 Other disorders of lung | CPT/HCPCS: 97110 ==

== ENCOUNTER → 2022-09-17 11:27 | Outpatient (BNVA) | payer OTHER, SELFPAY | PROVIDERS: PCP Emergency Medicine Emergency Medical Services; Visit Provider Internal Medicine Cardiovascular Disease | DX: I13.2 Hypertensive heart and chronic kidney disease with heart failure and with stage 5 chronic kidney disease, or end stage renal disease (principal); E11.22 Type 2 diabetes mellitus with diabetic chronic kidney disease; N18.6 End stage renal disease; I50.9 Heart failure, unspecified; Z99.2 Dependence on renal dialysis; Z79.4 Long term (current) use of insulin; Z87.891 Personal history of nicotine dependence; I25.10 Atherosclerotic heart disease of native coronary artery without angina pectoris; I48.91 Unspecified atrial fibrillation; Z79.01 Long term (current) use of anticoagulants | CPT/HCPCS: 99214; Q3014 ==

== ENCOUNTER → 2023-01-04 12:36 | Outpatient (BNVA) | payer OTHER, SELFPAY | PROVIDERS: PCP Emergency Medicine Emergency Medical Services; Visit Provider Podiatrist Foot & Ankle Surgery | DX: E11.42 Type 2 diabetes mellitus with diabetic polyneuropathy (principal); Z79.4 Long term (current) use of insulin; M21.41 Flat foot [pes planus] (acquired), right foot; M21.42 Flat foot [pes planus] (acquired), left foot; L60.3 Nail dystrophy; E11.22 Type 2 diabetes mellitus with diabetic chronic kidney disease; N18.6 End stage renal disease; Z99.2 Dependence on renal dialysis; M20.41 Other hammer toe(s) (acquired), right foot; M20.42 Other hammer toe(s) (acquired), left foot; M21.612 Bunion of left foot | CPT/HCPCS: 73630; 99204 ==

== ENCOUNTER 2023-03-07 11:49 | Inpatient (IN) | payer OTHER, SELFPAY ==
[2023-03-07] VITALS (10 sets, daily range): BP systolic 142–158; BP diastolic 71–92; PULSE 60–83; RESP 16–28; TEMP 36.6–36.8; O2SAT 92–98; BMI 36.8
--- NOTE | 2023-03-07 12:01 | XR_ITS ---
WS: [id number] Exam: XR chest 1V portable [id number] Date/Time of Exam: 03/07/2023 12:01 PM Reason For Exam: sob Compared to prior study 04/30/2022. Chronic pulmonary parenchymal changes in the right lower lobe and right basal pleural thickening note d. Very little change since the last exam. Left lung is clear. Mild cardiac enlargement unchanged. Th e mediastinum is normal in contour for technique. Bony structures are intact. An ICD superimposes the left chest. XR/XR chest 1V portable [id number] IMPRESSION: 1. Chronic pulmonary and pleural changes in the right lung base which may be se condary to previous Covid pneumonia. No acute process is suspected. 2. Mild cardiac enlargement unchanged.
--- NOTE | 2023-03-07 12:03 | W.ED.SOB ---
HPI - SOB/Dyspnea General: Chief Complaint: Extremity Injury, Lower Stated Complaint: SOB, abd pain Time Seen by Provider: 03/07/23 11:52 Source: patient Mode of arrival: ambulatory Limitations: no limitations History of Present Illness: HPI Narrative: 77-year-old male who has a history of congestive heart failure, COPD and is on dialysis states that throughout the week he is having some increased shortness of breath especially with exertion he did just come from dialysis states feel little improved at dialysis but still having some dyspnea states he had pleural effusions before he denies any cough denies any fever he denies any severe pain he is currently on 5 L here he is 95% on that. Associated symptoms: Deny abdominal pain, chest pain, fever(s), nausea or vomiting Review of Systems Const: Denies: fever(s), chills, body aches or change in appetite Eyes: Denies: blurry vision or eye discomfort ENMT: Denies: throat pain or dental pain Card: Denies: chest pain Resp: Reports: dyspnea GI: Denies: abdominal pain, nausea, vomiting or diarrhea : Denies: dysuria Musc: Denies: neck pain or back pain Skin/Breast: Denies: rash Neuro: Denies: headache(s) Psych: Denies: depression Nas/Lymph: Denies: easy bruising PFSH ED PFSH: Medical History Accelerated essential hypertension Anemia Atrial fibrillation CAD (coronary artery disease) CHF (congestive heart failure) Chronic anticoagulation Diabetes mellitus ESRD (end stage renal disease) Heart failure Hypercholesteremia LV dysfunction Myocardial infarct Neuropathy NSTEMI (non-ST elevated myocardial infarction) MARAL (obstructive sleep apnea) Pacemaker Pneumonia Renal failure Respiratory failure with hypoxia Restrictive lung disease Small airways disease Surgical History Hemodialysis access, AV graft History of colonoscopy with polypectomy 2020 Peritoneal dialysis status (03/02/21) removed S/P cardiac pacemaker procedure S/P cataract surgery S/P dialysis catheter insertion S/P PTCA (percutaneous transluminal coronary angioplasty) Family History Mother Heart disease Social History Smoking and tobacco status: former smoker Quit status (tobacco): has quit using tobacco Year quit tobacco: 1984 Former quit date comment: 3PPD x 17 Years Second hand smoke exposure: No Smoking risk assessment/counseling performed?: No Alcohol intake: never Counseling given: No Substance/Drug Use: never Counseling given: No Lives independently: Yes Household members: spouse Housing: House Marital status: service: Yes Current occupational status: retired Pets and animals: No Do you think of yourself as: Straight/Heterosexual Current gender identity: Male Physical Exam Const: COMMON NORMALS: patient oriented x3 HENMT: COMMON NORMALS: normocephalic and atraumatic HEAD & SCALP: normocephalic and atraumatic Eye: COMMON NORMALS: Equal, round and reactive pupils present and EOMs intact bilaterally PUPIL: Yes Equal, round and reactive pupils present Neck/C-Spine: COMMON NORMALS: full ROM and supple Chest: COMMONS NORMALS: normal inspection of the chest and normal palpation of entire chest wall Resp: COMMON NORMALS: normal respiratory effort, No retractions, No use of accessory muscles and clear to auscultation bilaterally AUSCULTATION: clear to auscultation bilaterally Cardio: COMMON NORMALS: regular rate, regular rhythm and No murmurs present (Cardio) RATE: regular rate RHYTHM: regular rhythm GI: COMMON NORMALS: Normal to inspection, nondistended, normoactive bowel sounds present, Soft to palpation, non-tender and no masses PALPATION: Yes Soft to palpation Extremity: COMMON NORMALS: normal to inspection and full ROM Neuro: COMMON NORMALS: patient oriented x3, moves all extremities and no focal motor deficits Psych: COMMON NORMALS: mental status grossly normal, Normal thought process present and cooperative THOUGHT PROCESS: Normal thought process present Skin: COMMON NORMALS: no rashes or lesions noted and no wounds GENERAL SKIN EXAM: no rashes or lesions noted Course Vital Signs: Vital signs: Vital Signs Temperature 97.8 F 03/07/23 11:55 Pulse Rate 66 03/07/23 13:23 Respiratory Rate 20 H 03/07/23 13:10 Blood Pressure 151/83 03/07/23 12:11 Pulse Oximetry 98 03/07/23 13:10 Oxygen Delivery Me thod Nasal Cannula 03/07/23 13:10 Oxygen Flow Rate 4 03/07/23 13:10 MDM - SOB/Dyspnea Medical Decision Making Patient presents here shortness of breath x-ray shows no acute abnormalities he does have an elevated BNP history of congestive heart failure receive dialysis morning did ambulate him here he became short of breath and got hypoxic into the 80s on his 5 L spoke to hospitalist will admit at this time for his hypoxia and dyspnea. Medical Records I reviewed the patient's medical records. Lab Data I reviewed the patient's lab results. 03/07/23 12:15 03/07/23 12:15 Labs/Radiology: Radiology Impressions Chest X-Ray 03/07/23 12:01 IMPRESSION: 1. Chronic pulmonary and pleural changes in the right lung base which may be secondary to previous Covid pneumonia. No acute process is suspected. 2. Mild cardiac enlargement unchanged. Laboratory Results WBC 7.2 10^3/uL (4.0-10.0) 03/07/23 12:15 RBC 3.79 10^6/uL (4.1-5.3) L 03/07/23 12:15 Hgb 11.2 g/dL (11.7-16.6) L 03/07/23 12:15 Hct 35.9 % (42.0-52.0) L 03/07/23 12:15 MCV 94.7 fl (80-94) H 03/07/23 12:15 MCH 29.6 pg (28.0-34.0) 03/07/23 12:15 MCHC 31.2 g/dL (30.0-36.0) 03/07/23 12:15 RDW 17.7 % (12.1-15.1) H 03/07/23 12:15 Plt Count 228 10^3/cmm (130-400) 03/07/23 12:15 MPV 9.3 fL (7.4-10.4) 03/07/23 12:15 Neut % (Auto) 75.0 % 03/07/23 12:15 Lymph % (Auto) 13.3 % 03/07/23 12:15 [place] % (Auto) 9.2 % 03/07/23 12:15 Eos % (Auto) 1.4 % 03/07/23 12:15 Baso % (Auto) 0.7 % 03/07/23 12:15 Neut # (Auto) 5.40 10^3/uL (1.8-7.7) 03/07/23 12:15 Lymph # (Auto) 1.0 10^3/uL (0.8-4.8) 03/07/23 12:15 [place] # (Auto) 0.7 10^3/uL (0.2-0.9) 03/07/23 12:15 Eos # (Auto) 0.1 10^3/uL (0.0-0.8) 03/07/23 12:15 Baso # (Auto) 0.1 10^3/uL (0.0-0.1) 03/07/23 12:15 Nucleated RBC % (auto) 0 % 03/07/23 12:15 Nucleated RBCs # 0.0 /100WBC 03/07/23 12:15 PT 16.60 SECONDS (12.1-14.9) H 03/07/23 12:15 INR 1.29 (0.8-1.2) H 03/07/23 12:15 Sodium 140 mmol/L (136-145) 03/07/23 12:15 Potassium 3.7 mmol/L (3.5-5.1) 03/07/23 12:15 Chloride 96 mmol/L (98-107) L 03/07/23 12:15 Carbon Dioxide 30 mmol/L (22-29) H 03/07/23 12:15 Anion Gap 17.7 (5-19) 03/07/23 12:15 BUN 14 mg/dL (8-23) 03/07/23 12:15 Creatinine 2.6 mg/dL (0.7-1.2) H 03/07/23 12:15 GFR Calculation Not Reportable 03/07/23 12:15 Glucose 94 mg/dL (65-115) 03/07/23 12:15 Calculated Osmolality 290 mOsm/kg (285-295) 03/07/23 12:15 Calcium 9.2 mg/dL (8.5-10.5) 03/07/23 12:15 Magnesium 1.8 mg/dL (1.7-2.3) 03/07/23 12:15 Total Bilirubin 0.5 mg/dL (0.15-1.2) 03/07/23 12:15 AST 12 U/L (0-40) 03/07/23 12:15 ALT 13 U/L (0-41) 03/07/23 12:15 Alkaline Phosphatase 72 U/L (40-130) 03/07/23 12:15 Troponin T Baseline 89 ng/L (0-15) H 03/07/23 12:15 NT-Pro-B Natriuret Pep 12495 pg/mL (0-450) H 03/07/23 12:15 Total Protein 7.9 g/dL (6.6-8.7) 03/07/23 12:15 Albumin 4.2 g/dL (3.5-5.2) 03/07/23 12:15 Globulin 3.7 g/dL (1.3-4.6) 03/07/23 12:15 EKG Data EKG 1: I personally reviewed and interpreted this EKG as follows: EKG Interpretation Date: 03/07/23 EKG interpretation time: 12:08 Interpretation: paced hr [address] or t wave abnormalities qrs 235 qtc 551 Discharge Plan Discharge Patient Disposition: Admitted As Inpatient Clinical Impression: End-stage renal disease (ESRD), Congestive heart failure, Acute and chronic respiratory failure with hypoxia Condition: Stable Prescriptions: No Action atorvastatin 80 mg tablet 80 mg PO DAILY@1800 Mircera 30 mcg/0.3 mL syringe 60 mcg SUBCUT Q14D gabapentin 300 mg capsule 300 mg PO BID@ sevelamer carbonate [Renvela] 800 mg tablet 2,400 mg PO TID@,, albuterol sulfate 90 mcg/actuation HFA aerosol inhaler 2 puff inhalation Q6H PRN (Reason: shortness of breath or wheezing) 30 Days Qty: 8.5 3RF famotidine [Pepcid] 20 mg tablet 20 mg PO BID@ Saxenda 3 mg/0.5 mL (18 mg/3 mL) pen injector 3 mg SUBCUT DAILY PRN (Reason: weight loss) Rx Instructions: ( states not taken since oct) cholecalciferol (vitamin D3) 50 mcg (2,000 unit) capsule 50 mcg PO QAM Daliresp 250 mcg tablet 500 mcg PO DAILY multivitamin Tablet 1 tab PO DAILY spironolactone 50 mg tablet 50 mg PO DAILY@09 Qty: 90 1RF furosemide 40 mg tablet 40 mg PO DAILY Qty: 90 3RF diclofenac sodium [Voltaren Arthritis Pain] 1 % gel 2 g topical QID Qty: 100 0RF Rx Instructions: apply to left bunion to relieve pain (DME) Diabetic Shoes with 3 Custom Inserts See Rx Instructions .Route .MEDSUPPLY Qty: 1 0RF Rx Instructions: As directed isosorbide mononitrate 30 mg tablet extended release 24 hr 15 mg PO BID Qty: 90 3RF Eliquis 5 mg tablet 5 mg PO BID Qty: 180 3RF carvedilol 6.25 mg tablet 9.375 mg PO DIRECTED Qty: 135 0RF Rx Instructions: 6.25mg (1 tab) in AM & 3.125mg (0.5 tab) in PM allopurinol 100 mg Tablet 100 mg PO DAILY PRN (Reason: Gout) oxycodone-acetaminophen 5-325 mg Tablet 1 tab PO BEDTIME Rx Instructions: May also take 1/2 tab prn polyethylene glycol 3350 [Miralax] 17 gram/dose Powder 17 g PO DAILY PRN (Reason: Constipation) docusate sodium 100 mg Capsule 200 mg PO BID@, insulin glargine [Lantus U-100 Insulin] 100 unit/mL Solution 35 unit SUBCUT QAM Stiolto Respimat 2.5-2.5 mcg/actuation mist 2 puff inhalation QAM albuterol sulfate 2.5 mg /3 mL (0.083 %) Solution For Nebulization 2.5 mg inhalation Q6H PRN (Reason: Shortness Of Breath) lidocaine-prilocaine 2.5-2.5 % Cream 1 applic topical TID PRN (Reason: Pain) gentamicin 0.1 % Cream 1 applic TOPICAL TID PRN (Reason: unknown) cinacalcet 30 mg Tablet 30 mg PO .THREE TIMES A WEEK Rx Instructions: at dialysis omega-3 fatty acids 1,000 mg Capsule 1,000 mg PO BID@, cetirizine [Zyrtec] 10 mg Tablet 10 mg PO DAILY@18 ondansetron HCl 8 mg Tablet 4 mg PO Q6H PRN (Reason: Nausea And Vomiting) nitroglycerin [Nitrostat] 0.4 mg Tablet, Sublingual 0.4 mg SUBLINGUAL Q5M PRN (Reason: Chest Pain) Rx Instructions: do not exceed 3 doses per episode doxercalciferol 1 mcg Capsule 1 mcg PO .THREE TIMES A WEEK Brilinta 90 mg Tablet 90 mg PO BID RenaPlex 800 mcg- 12.5 mg Tablet 1 tab PO DAILY Referrals: Adria Artis DO [Primary Care Provider] - Coding Level of Care Code ED 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
--- NOTE | 2023-03-07 12:08 | ECG_ITS ---
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 Measurements Intervals [place] Rate: 63 P: 0 [place]: 0 QRS: -78 QRSD: 235 T: 89 QT: 544 QTc: 557 Interpretive Statements ELECTRONIC VENTRICULAR PACEMAKER PROLONGED QT INTERVAL Compared to ECG 04/26/2022 10:41:52 No significant changes Electronically Signed On 03-07-2023 17:23:37 CDT by Jairo Johnson M.D. [id number]
[2023-03-07 12:26] LABS: Basophils # 0.1 10^3/uL (0.0-0.1); Basophils % 0.7 %; Eosinophils # 0.1 10^3/uL (0.0-0.8); Eosinophils % 1.4 %; Hematocrit 35.9 % (42.0-52.0); Hemoglobin 11.2 g/dL (11.7-16.6); Lymphocytes % 13.3 %; Mean Corpuscular HGB Conc 31.2 g/dL (30.0-36.0); Mean Corpuscular Hemoglobin 29.6 pg (28.0-34.0); Mean Corpuscular Volume 94.7 fl (80-94); Mean Platelet Volume 9.3 fL (7.4-10.4); Monocytes # 0.7 10^3/uL (0.2-0.9); Monocytes % 9.2 %; Nucleated Red Blood Cells % 0 %; Platelet Count 228 10^3/cmm (130-400); Red Blood Count 3.79 10^6/uL (4.1-5.3); Red Cell Distribution Width 17.7 % (12.1-15.1); White Blood Count 7.2 10^3/uL (4.0-10.0)
[2023-03-07 12:37] LABS: INR 1.29 (0.8-1.2)
[2023-03-07 12:44] LABS: Troponin(5th) Baseline 89 ng/L (0-15)
[2023-03-07 12:54] LABS: Alanine Aminotransferase 13 U/L (0-41); Albumin Level 4.2 g/dL (3.5-5.2); Alkaline Phosphatase 72 U/L (40-130); Anion Gap 17.7 (5-19); Aspartate Amino Transferase 12 U/L (0-40); Blood Urea Nitrogen 14 mg/dL (8-23); Calcium 9.2 mg/dL (8.5-10.5); Carbon Dioxide 30 mmol/L (22-29); Chloride 96 mmol/L (98-107); Globulin 3.7 g/dL (1.3-4.6); Glucose 94 mg/dL (65-115); Magnesium 1.8 mg/dL (1.7-2.3); Osmolality Calculated 290 mOsm/kg (285-295); Potassium 3.7 mmol/L (3.5-5.1); Sodium 140 mmol/L (136-145); Total Bilirubin 0.5 mg/dL (0.15-1.2); Total Protein 7.9 g/dL (6.6-8.7)
[2023-03-07] MEDS: albuterol 2.5 mg/3 mL Neb INHALATION (13:27)
--- NOTE | 2023-03-07 13:39 | PC.NURSE ---
PT PLACED ON CONTINUOUS SPO2, NIBP, AND CM.
--- NOTE | 2023-03-07 13:40 | PC.NURSE ---
PT AMB 15 FEET WITH WALKER. PT OXYGEN DECREASED TO 85 % ON [address] L V[address] NC[address] INFOR[address] JURADO.
--- NOTE | 2023-03-07 14:01 | ECG_ITS ---
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 Measurements Intervals [place] Rate: 65 P: 0 [place]: 0 QRS: -80 QRSD: 234 T: 97 QT: 559 QTc: 583 Interpretive Statements ELECTRONIC VENTRICULAR PACEMAKER Compared to ECG 03/07/2023 12:08:03 No significant changes Electronically Signed On 03-07-2023 17:24:34 CDT by Jairo Johnson M.D. [id number]
--- NOTE | 2023-03-07 14:09 | PC.NURSE ---
REPORT GIVEN TO TERE OLVERA.
[2023-03-07 16:44] LABS: Glucose Point of Care 133 mg/dL (70-110)
--- NOTE | 2023-03-07 17:00 | PM.HP ---
Providers/Chief Complaint Admitting Physician: Renetta Harvey MD Primary Care Provider: Adria Artis DO Chief Complaint: SOB, abd pain History of Present Illness Shon Mullen is a 77 year old male with ESRD on HD MWF CAD, restrictive lung disease presenting to the hospital with worsening dyspnea. Patient states that he typically wears 4 L/min of supplemental O2 at home. With this oxygen his oxygen numbers are usually at 90%. Over the last 2 days he has noticed that with exertion his oxygen saturation is dropping down as low as 79 to 84%. He went for dialysis today where they did remove fluid. While coming back from dialysis he felt sick to his stomach and had nausea and vomiting. Along with that he has also been experiencing upper back pain intermittently over the past week. He is concerned that these may be atypical symptoms of an MS similar to his previous presentations and came to the hospital. Patient last underwent coronary angiogram in April 2022 which had shown patent stents. Prior to that he had intervention in August 2021 with placement of 5 stents at [place]. He denies any cough chest pain palpitations or syncope. He states he has not recently gained any weight. No recent fever. No abdominal pain or diarrhea. Review of Systems General: Reports: 10 or more systems reviewed and unremarkable except in HPI and below Const: Denies: fever(s), chills or body aches Eyes: Denies: change in vision, blurry vision or photophobia ENMT: Reports: hoarseness; Denies: throat pain, enlarged tonsils, odynophagia or nasal congestion Card: Denies: chest pain, palpitations, irregular heart rhythm, edema, swelling of feet/ankles, lightheadedness, pre-syncope, dyspnea on exertion or orthopnea Resp: Denies: dyspnea, productive cough, non-productive cough, wheezing, stridor, pain on inspiration, change in phlegm color, hemoptysis or chest congestion GI: Denies: abdominal pain, nausea, vomiting, hematemesis, coffee ground emesis, dysphagia, heartburn, diarrhea, constipation, GI cramping, change in stool character, hematochezia or melena : Denies: flank pain, dysuria, urinary frequency, urinary urgency, urinary hesitancy or hematuria Musc: Denies: neck pain, back pain, extremity pain, joint swelling, joint warmth or deformity Neuro: Denies: headache(s), numbness in extremities, weakness in extremities, sensory changes, difficulty walking, frequent falls, dizziness, vertigo, behavioral changes, Slurred speech present or seizure-like activity Psych: Denies: anxiety, depression, suicidal ideation or homicidal ideation Endo: Denies: polyuria, polydipsia, tired all the time, cold intolerance or hot flashes Nas/Lymph: Denies: easy bruising or easy bleeding Medications/Allergies Home Medications Medication Instructions Recorded Confirmed Last Taken Type atorvastatin 80 mg tablet 80 mg PO DAILY@1800 10/02/19 03/07/23 03/06/23 History epoetin beta, methoxy peg 30 60 mcg SUBCUT Q14D 11/07/19 03/07/23 07/03/21 History mcg/0.3 mL injection syringe (Mircera) gabapentin 300 mg capsule 300 mg PO BID@09,18 11/07/19 03/07/23 03/06/23 History sevelamer carbonate 800 mg tablet 2,400 mg PO TID@09,12,18 11/07/19 03/07/23 03/06/23 History (Renvela) famotidine 20 mg tablet (Pepcid) 20 mg PO BID@,18 04/16/20 03/07/23 03/06/23 History liraglutide (weight loss) 3 mg/0.5 3 mg SUBCUT DAILY PRN weight loss 04/16/20 03/07/23 03/06/23 History mL (18 mg/3 mL) subcut pen injector (Saxenda) docusate sodium 100 mg capsule 200 mg PO BID@09,18 09/17/20 03/07/23 03/06/23 History allopurinol 100 mg tablet 100 mg PO DAILY PRN Gout 11/11/20 03/07/23 01/31/21 History oxycodone-acetaminophen 5 mg-325 1 tab PO BEDTIME 11/11/20 03/07/23 03/06/23 History mg tablet polyethylene glycol 3350 17 17 g PO DAILY PRN Constipation 11/11/20 03/07/23 03/01/21 History gram/dose oral powder (Miralax) albuterol sulfate 90 mcg/actuation 2 puff inhalation Q6H PRN 01/02/21 03/07/23 02/23/21 Rx aerosol inhaler shortness of breath or wheezing 30 days #8.5 grams albuterol sulfate 2.5 mg/3 mL 2.5 mg inhalation Q6H PRN 07/13/21 03/07/23 Unknown History (0.083 %) solution for nebulization Shortness Of Breath cinacalcet 30 mg tablet 30 mg PO .THREE TIMES A WEEK 07/13/21 03/07/23 03/06/23 History gentamicin 0.1 % topical cream 1 applic topical TID PRN unknown 07/13/21 03/07/23 Unknown History insulin glargine 100 unit/mL 35 unit SUBCUT QAM 07/13/21 03/07/23 03/06/23 History subcutaneous solution (Lantus U-100 Insulin) lidocaine-prilocaine 2.5 %-2.5 % 1 applic topical TID PRN Pain 07/13/21 03/07/23 03/06/23 History topical cream tiotropium 2.5 mcg-olodaterol 2.5 2 puff inhalation QAM 07/13/21 03/07/23 03/06/23 History mcg/actuation mist for inhalation (Stiolto Respimat) isosorbide mononitrate 30 mg 15 mg PO BID #90 tabs 08/05/21 03/07/23 03/06/23 Rx tablet,extended release 24 hr cholecalciferol (vitamin D3) 50 50 mcg PO QAM 11/11/21 03/07/23 03/06/23 History mcg (2,000 unit) capsule cetirizine 10 mg tablet (Zyrtec) 10 mg PO DAILY@18 04/26/22 03/07/23 03/06/23 History doxercalciferol 1 mcg capsule 1 mcg PO .THREE TIMES A WEEK 04/26/22 03/07/23 03/07/23 History nitroglycerin 0.4 mg sublingual 0.4 mg sublingual Q5M PRN Chest 04/26/22 03/07/23 Unknown History tablet (Nitrostat) Pain omega-3 fatty acids 1,000 mg 1,000 mg PO BID@09,18 04/26/22 03/07/23 03/06/23 History capsule ondansetron HCl 8 mg tablet 4 mg PO Q6H PRN Nausea And Vomiting 04/26/22 03/07/23 03/06/23 History ticagrelor 90 mg tablet (Brilinta) 90 mg PO BID 04/26/22 03/07/23 03/06/23 History multivitamin 1 tab PO DAILY 06/07/22 03/07/23 03/06/23 History roflumilast 250 mcg tablet 500 mcg PO DAILY 06/18/22 03/07/23 03/06/23 History (Daliresp) spironolactone 50 mg tablet 50 mg PO DAILY@09 #90 tabs 06/18/22 03/07/23 03/06/23 Rx apixaban 5 mg tablet 5 mg PO BID #180 tabs 07/05/22 03/07/23 03/06/23 Rx carvedilol 6.25 mg tablet 9.375 mg PO DIRECTED #135 tabs 07/15/22 03/07/23 03/06/23 Rx furosemide 40 mg tablet 40 mg PO DAILY #90 tabs 09/18/22 03/07/23 03/06/23 Rx Diabetic Shoes with 3 Custom #1 ea 01/04/23 03/07/23 Unknown Rx Inserts diclofenac sodium 1 % topical gel 2 g topical QID #100 grams 01/04/23 03/07/23 03/06/23 Rx (Voltaren Arthritis Pain) vitamin B complex with vit C-folic 1 tab PO DAILY 03/07/23 03/07/23 03/06/23 History acid 800 mcg-zinc 12.5 mg tablet (RenaPlex) Allergies Allergy/AdvReac Type Severity Reaction Status Date / Time ciprofloxacin [From Cipro] Allergy rash Verified 03/07/23 12:32 felodipine Allergy rash Verified 03/07/23 12:32 sulfamethoxazole Allergy rash Verified 03/07/23 12:32 [From Septra] trimethoprim [From Septra] Allergy rash Verified 03/07/23 12:32 PFSH Acute PFSH: Medical History Accelerated essential hypertension Anemia Atrial fibrillation CAD (coronary artery disease) CHF (congestive heart failure) Chronic anticoagulation Diabetes mellitus ESRD (end stage renal disease) Heart failure Hypercholesteremia LV dysfunction Myocardial infarct Neuropathy NSTEMI (non-ST elevated myocardial infarction) MARAL (obstructive sleep apnea) Pacemaker Pneumonia Renal failure Respiratory failure with hypoxia Restrictive lung disease Small airways disease Surgical History Hemodialysis access, AV graft History of colonoscopy with polypectomy 2020 Peritoneal dialysis status (03/02/21) removed S/P cardiac pacemaker procedure S/P cataract surgery S/P dialysis catheter insertion S/P PTCA (percutaneous transluminal coronary angioplasty) Family History Mother Heart disease Social History Smoking and tobacco status: former smoker Quit status (tobacco): has quit using tobacco Year quit tobacco: 1984 Former quit date comment: 3PPD x 17 Years Second hand smoke exposure: No Smoking risk assessment/counseling performed?: No Alcohol intake: never Counseling given: No Substance/Drug Use: never Counseling given: No Lives independently: Yes Household members: spouse Housing: House Marital status: service: Yes Current occupational status: retired Pets and animals: No Do you think of yourself as: Straight/Heterosexual Current gender identity: Male Vitals/I&O/Wt Last Vital Signs Temp 98.2 F 03/07/23 20:00 Pulse 83 03/07/23 22:00 Resp 18 03/07/23 20:00 BP 148/73 03/07/23 20:00 Pulse Ox 93 03/07/23 20:00 O2 Del Method Nasal Cannula 03/07/23 19:33 O2 Flow Rate 4 03/07/23 20:00 03/07/23 03/07/23 03/08/23 14:59 22:59 06:59 Intake Total 720 / 720 Balance 720 / 720 Weight last 48 hrs Weight 119.748 kg Physical Exam Narrative: General: Mildly tachypneic on exam. Respiratory rate of 22/min. AO x3 HEENT: PERRLA, pupils bilaterally equal and reactive, pallors not present, mouth breathing Chest: Reduced breath sounds right infra axillary area CVS: S1-S2 regular, no murmurs, no tachycardia, no gallops, no rubs Abdomen: Soft, nontender, no organomegaly, bowel sounds present Neuro: No focal deficits, no facial deformity, AO x3, power 5/5 in all limbs Data 03/08/23 04:32 03/08/23 04:32 Micro: Launch?Image [employer] [facility] [address] [place] [address] XRay Report Signed Patient: Shon Mullen Unit #: [id number] : 1945 Age/Sex: 77 / M ADM Date: 03/07/23 Loc: ER Room/Bed: Attending Dr: Ordering Provider/Ordering MD: Julia Pierre MD Date of Service: 03/07/23 Procedure(s): XR chest 1V portable [id number] Accession Number(s): [id number] Report Number: [id number] WS: [id number] Exam: XR chest 1V portable [id number] Date/Time of Exam: 03/07/2023 12:01 PM Reason For Exam: sob Compared to prior study 04/30/2022. Chronic pulmonary parenchymal changes in the right lower lobe and right basal pleural thickening noted. Very little change since the last exam. Left lung is clear. Mild cardiac enlargement unchanged. The mediastinum is normal in contour for technique. Bony structures are intact. An ICD superimposes the left chest. XR/XR chest 1V portable [id number] IMPRESSION: 1. Chronic pulmonary and pleural changes in the right lung base which may be secondary to previous Covid pneumonia. No acute process is suspected. 2. Mild cardiac enlargement unchanged. A&P Assessment and plan (1) Acute and chronic respiratory failure with hypoxia: (2) End-stage renal disease (ESRD): (3) Diabetes mellitus: (4) Restrictive lung disease: (5) Shortness of breath: (6) Elevated troponin: (7) Hypervolemia: Plan Patient is a 77-year-old male with a significant past history of coronary artery disease, status post 5 stents placed in August 2021 in [place], currently presenting with worsening shortness of breath over several weeks, more acutely worsened over the last 2 days. Typically patient wears 4 L/min supplemental O2, with that same oxygen he noticed his sats to be down between 79 to 84% and presented to the emergency room. Patient has a history of right-sided pleural effusion which is chronic, however on review of x-ray today he appears to have some pleural chronic changes without any obvious effusion. Previously his effusion was noted to be exudative but cultures were negative and cytology did not suggest any underlying malignancy. He is additionally known to have a mixed obstructive restrictive ventilatory defect, however on examination he has no audible wheeze today. Unlikely that his reduced oxygenation is from an exacerbation in this regard. Patient has a last known ejection fraction of 30% with moderate global hypokinesia and findings consistent of systolic heart failure. Given his elevated BNP at 20,000, worsened oxygenation, suspect that acute on chronic systolic CHF exacerbation is contributing to his current symptoms. We will administer Lasix 60 mg IV x1 and consult nephrology for additional dialysis session tomorrow. Typically patient gets dialysis on Tuesday and Tuesday. He does not make much urine. Troponins are noted to be elevated at baseline 89 today. EKG does not show any acute ST-T wave changes. Elevated troponins may be as a result of CKD versus demand supply mismatch from hypoxia. Will trend at 2 and 6 hours. If the troponins are trending up we will start heparin drip and consult cardiology. Check limited echocardiogram to assess for any drop in ejection fraction or new RWMA. Back pain currently appears to be nonspecific, will obtain x-ray imaging of the thoracic spine to a certain for any pathological fractures. Low probability PE given that patient is on anticoagulation with Eliquis at home. Continue his other home medications including Eliquis, Brilinta, Aldactone, carvedilol, atorvastatin, Lantus insulin and Renvela. Attestations Medical Necessity Statement*: > 2midnight admission is anticipated for above defined care Coding Level of Care Code Acute Code for g Fwd Diagnoses Acute and chronic respiratory failure with hypoxia J96.21 End-stage renal disease (ESRD) N18.6 Diabetes mellitus E11.9 Restrictive lung disease J98.4 Shortness of breath R06.02 Elevated troponin R77.8 Hypervolemia E87.70
[2023-03-07] MEDS: isosorbide mononitrate ER 30 mg Tablet 15 MG PO (17:35)
[2023-03-07] MEDS: acetaminophen 325 mg Tablet 650 MG PO (17:36)
[2023-03-07] MEDS: atorvastatin 40 mg Tablet 80 MG PO (17:36)
[2023-03-07] MEDS: sevelamer 800 mg Tablet 2400 MG PO (17:37)
[2023-03-07] MEDS: gabapentin 300 mg Capsule PO (17:51)
[2023-03-07] MEDS: ticagrelor 90 mg Tablet PO (17:51)
[2023-03-07] MEDS: FUROsemide 10 mg/mL SDV 4mL 40 MG IVP (17:51)
[2023-03-07 19:03] LABS: Troponin 5 6HR 85.69 ng/L (0-15); Troponin 5 6HR Delta -3.31 ng/L (0-12)
[2023-03-07] MEDS: ipratropium-albuterol 3 mL Neb INHALATION (19:33)
[2023-03-07] MEDS: budesonide 0.5 mg/2 mL Neb INHALATION (19:33)
[2023-03-07] MEDS: apixaban 5 mg Tablet PO (20:15)
[2023-03-07] MEDS: oxyCODONE-APAP 5-325 mg Tablet 1 TAB PO (20:16)
[2023-03-07] MEDS: carvedilol 3.125 mg Tablet PO (20:16)
[2023-03-07 20:35] LABS: Adenovirus Not Detected (NOT DETECT); Chlamydia Pneumoniae Not Detected (NOT DETECT); Coronavirus 229E,HKU1,NL63,OC4 Not Detected (NOT DETECT); Human Metapneumovirus Not Detected (NOT DETECT); Human Rhinovirus/Enterovirus Not Detected (NOT DETECT); Influenza A Not Detected (NOT DETECT); Influenza A H1 Not Detected (NOT DETECT); Influenza A H1-2009 Not Detected (NOT DETECT); Influenza A H3 Not Detected (NOT DETECT); Influenza B Not Detected (NOT DETECT); Mycoplasma Pneumoniae Not Detected (NOT DETECT); Parainfluenza Virus Type 1 Not Detected (NOT DETECT); Parainfluenza Virus Type 2 Not Detected (NOT DETECT); Parainfluenza Virus Type 3 Not Detected (NOT DETECT); Parainfluenza Virus Type 4 Not Detected (NOT DETECT); Respiratory Syncytial Virus A Not Detected (NOT DETECT); Respiratory Syncytial Virus B Not Detected (NOT DETECT); SARS-COV-2 Not Detected (NOT DETECT)
[2023-03-07 23:39] LABS: Glucose Point of Care 199 mg/dL (70-110)
[2023-03-08] VITALS (13 sets, daily range): BP systolic 120–148; BP diastolic 68–76; PULSE 60–69; RESP 16–20; TEMP 36.4–37; O2SAT 94–97
[2023-03-08 04:54] LABS: Basophils # 0.1 10^3/uL (0.0-0.1); Basophils % 0.6 %; Eosinophils # 0.1 10^3/uL (0.0-0.8); Eosinophils % 1.1 %; Hematocrit 31.7 % (42.0-52.0); Hemoglobin 9.7 g/dL (11.7-16.6); Lymphocytes # 1.1 10^3/uL (0.8-4.8); Lymphocytes % 13.8 %; Mean Corpuscular HGB Conc 30.6 g/dL (30.0-36.0); Mean Corpuscular Hemoglobin 29.7 pg (28.0-34.0); Mean Corpuscular Volume 96.9 fl (80-94); Mean Platelet Volume 9.7 fL (7.4-10.4); Monocytes # 0.9 10^3/uL (0.2-0.9); Monocytes % 11.3 %; Neutrophils # 5.74 10^3/uL (1.8-7.7); Neutrophils % 72.7 %; Nucleated Red Blood Cells % 0 %; Platelet Count 213 10^3/cmm (130-400); Red Blood Count 3.27 10^6/uL (4.1-5.3); Red Cell Distribution Width 17.9 % (12.1-15.1); White Blood Count 7.9 10^3/uL (4.0-10.0)
[2023-03-08 05:12] LABS: Alanine Aminotransferase 13 U/L (0-41); Albumin Level 3.5 g/dL (3.5-5.2); Alkaline Phosphatase 63 U/L (40-130); Anion Gap 17.5 (5-19); Aspartate Amino Transferase 11 U/L (0-40); Blood Urea Nitrogen 27 mg/dL (8-23); Carbon Dioxide 29 mmol/L (22-29); Chloride 96 mmol/L (98-107); Globulin 3.6 g/dL (1.3-4.6); Glucose 136 mg/dL (65-115); Osmolality Calculated 293 mOsm/kg (285-295); Potassium 4.5 mmol/L (3.5-5.1); Sodium 138 mmol/L (136-145); Total Bilirubin 0.4 mg/dL (0.15-1.2); Total Protein 7.1 g/dL (6.6-8.7)
[2023-03-08] MEDS: insulin glargine 100 units/1 mL 35 UNIT SUBCUT (06:15)
--- OUTSIDE RECORDS SUMMARY | 2023-03-08 07:08 | XMS_ITS ---
Author Name MagyValeriRosemarie Address [address] [place] [address] Phone [phone] Organization [facility] e, NA DOCUMENT DISCLAIMER Multiple document versions may exist, please be sure you review the latest version. The information in the [facility] Progress Note Document represents a providers documented clinical note containing certain health and medical information. It may not contain the complete medical history for the patient and should be independently verified. The represented time in the document is Eastern Time PROVIDER ROUNDING NOTE COMPREHENSIVE Patient:?Shon?Sebas,?1945,?77y,?M Dialysis?Location:?[facility] Attending?Bracelet Maker Novelty:?Magy?Len Service?Date:?10/20/2022 Service?Provider:?Rosemarie?Magy,?JUNIOR ACCOUNTANT BOOKKEEPER I?met?face?to?face?with?the?patient?today. OVERVIEW The?patient?presented?with?ESRD?on?dialysis Primary?cause?of?renal?failure:?Type?2?diabetes?mellitus&#16 0;with?diabetic?chronic?kidney?disease Comments:?SE?of?sensipar?has?resolved,?remains?on?it.? Seen?on?HD?machine,?denies?needs?for?me?today Medications?and?labs?reviewed. DIALYSIS?PRESCRIPTION ??IHD?3x?Week?Start?date:?10/13/22 ??Dialyzer:?180NRe?Optiflux ??BFR:?550 ??DFR:?Autoflow?1.5 ??Potassium:?2.0 ??Sodium:?137 ??EDW:?120 ??Duration:?3:45 ??Calcium:?2.5 ??Bicarb:?35 ??Rx?updated?on:?10/18/2022 TREATMENT?ASSESSMENT BP?Sit?Pre ??10/18/2022:?134/67 ??10/13/2022:?104/67 ??10/11/2022:?114/65 BP?Sit?Post ??10/18/2022:?110/86 ??10/13/2022:?110/81 ??10/11/2022:?130/66 Tx?Duration ??10/18/2022:?3:45 ??10/13/2022:?3:47 ??10/11/2022:?3:54 Missed?Treatments 0?-?last?30?days 0?-?last?60?days FLUID?ASSESSMENT Comments:?Stable Fluid?status?acceptable.?Interdialytic?weight?gain?acceptable.?No ?changes?indicated.? EDW?(kg) ??10/18/2022:?120.0 ??10/13/2022:?118.0 ??10/11/2022:?118.0 Weight?Pre?(kg) ??10/18/2022:?122.6 ??10/13/2022:?121.0 ??10/11/2022:?123.7 Weight?Post?(kg) ??10/18/2022:?119.6 ??10/13/2022:?119.8 ??10/11/2022:?120.1 PWV?(kg) ??10/18/2022:?-0.4 ??10/13/2022:?1.8 ??10/11/2022:?2.1 UF?Rate?(mL/kg/hr) ??10/18/2022:?6.7 ??10/13/2022:?2.6 ??10/11/2022:?7.7 ADEQUACY?ASSESSMENT Adequacy?target?met.?Prescription?compliance?acceptable.?No?changes?indicated.? spKt/V,?URR ??10/13/2022:?1.52,?74.0 ??09/18/2022:?1.58,?75.0 ??08/31/2022:?-,?0.0 ACCESS?ASSESSMENT ??Access?Type:?AVGraft ??Access?SubType:?Unknown ??Access?Status:?Active?(In?Use)?-?04/29/2022 ??Access?Location:?Right?Upper?Arm ??Created:?01/26/2016 Flow ??09/25/2022:?999 ??09/02/2022:?259 ??08/28/2022:?317 Comments:?access?clotted?last?week:?sent?for?fistulogram ANEMIA?ASSESSMENT Anemia?reviewed.?Anemia?targets?met.? HGB,?TSAT ??10/13/2022:?11.7,?19.0 ??10/07/2022:?11.1,?- ??09/30/2022:?12.1,?- ?? Ferritin ??08/19/2022:?1590.0 ??07/22/2022:?1004.0 ??05/20/2022:?1363.0 Mircera,?IVP?(mcg) ??09/23/2022:?200 ??09/09/2022:?200 ??08/26/2022:?200 Iron?Sucrose?(Venofer)?(mg) ??08/12/2022:?100 ??08/04/2022:?100 ??08/02/2022:?100 BMM?ASSESSMENT Bone?and?mineral?metabolism?parameters?reviewed.?Calcium?controll ed.?Phosphorus?controlled.?PTH?within?target.? Phosphorus,?Calcium ??10/13/2022:?5.7,?9.7 ??09/30/2022:?5.3,?- ??09/18/2022:?6.3,?9.7 ?? PTH,?Intact ??09/18/2022:?305.0 ??08/19/2022:?235.0 ??07/22/2022:?391.0 Vitamin?D?(Calcitriol)?Oral?(mcg) ??10/18/2022:?0.75 ??10/15/2022:?0.75 ??10/13/2022:?0.75 Cinacalcet?(Sensipar)?(mg) ??10/18/2022:?30 ??10/15/2022:?30 ??10/13/2022:?30 NUTRITION?ASSESSMENT Nutrition?reviewed.?Potassium?controlled.? Albumin,?Potassium ??10/13/2022:?-,?4.3 ??09/18/2022:?3.3,?4.7 ??08/19/2022:?3.4,?4.7 ?? eNPCR ??10/13/2022:?0.73 ??09/18/2022:?1.17 ??08/26/2022:?0.67 PHYSICAL?EXAM Exam?Not?Performed. DIAGNOSIS Chief?Complaint:?N18.6?End?stage?renal?disease Patient?data?updated?10/20/2022?at?9:04?AM Signed?By:?Magy,?Rosemarie,?JUNIOR ACCOUNTANT BOOKKEEPER??on?10/20/2022?9:12:24 AM END OF DOCUMENT
--- OUTSIDE RECORDS SUMMARY | 2023-03-08 07:08 | XMS_ITS ---
Author Name Luna Boles Address [address] [place] [address] Phone [phone] Organization [facility] e, NA DOCUMENT DISCLAIMER Multiple document versions may exist, please be sure you review the latest version. The information in the [facility] Progress Note Document represents a providers documented clinical note containing certain health and medical information. It may not contain the complete medical history for the patient and should be independently verified. The represented time in the document is Eastern Time PROVIDER ROUNDING NOTE COMPREHENSIVE Patient:?Shon?Seabs,?1945,?77y,?M Dialysis?Location:?[facility] Attending?Flight Director:?Magy?Len Service?Date:?10/25/2022 Service?Provider:?Luna?Elvi,? I?met?face?to?face?with?the?patient?today. OVERVIEW The?patient?presented?with?ESRD?on?dialysis Primary?cause?of?renal?failure:?Type?2?diabetes?mellitus&#16 0;with?diabetic?chronic?kidney?disease Medications?and?labs?reviewed. DIALYSIS?PRESCRIPTION ??IHD?3x?Week?Start?date:?10/13/22 ??Dialyzer:?180NRe?Optiflux ??BFR:?550 ??DFR:?Autoflow?1.5 ??Potassium:?2.0 ??Sodium:?137 ??EDW:?120 ??Duration:?3:45 ??Calcium:?2.5 ??Bicarb:?35 ??Rx?updated?on:?10/18/2022 TREATMENT?ASSESSMENT Blood?pressure?controlled.?No?changes?indicated.? BP?Sit?Pre ??10/22/2022:?122/69 ??10/20/2022:?102/60 ??10/18/2022:?134/67 BP?Sit?Post ??10/22/2022:?116/70 ??10/20/2022:?136/86 ??10/18/2022:?110/86 Tx?Duration ??10/22/2022:?3:44 ??10/20/2022:?3:45 ??10/18/2022:?3:45 Missed?Treatments 0?-?last?30?days 0?-?last?60?days FLUID?ASSESSMENT Comments:?Stable Fluid?status?acceptable.?Interdialytic?weight?gain?acceptable.?No ?changes?indicated.? EDW?(kg) ??10/22/2022:?120.0 ??10/20/2022:?120.0 ??10/18/2022:?120.0 Weight?Pre?(kg) ??10/22/2022:?121.4 ??10/20/2022:?120.8 ??10/18/2022:?122.6 Weight?Post?(kg) ??10/22/2022:?119.7 ??10/20/2022:?119.6 ??10/18/2022:?119.6 PWV?(kg) ??10/22/2022:?-0.3 ??10/20/2022:?-0.4 ??10/18/2022:?-0.4 UF?Rate?(mL/kg/hr) ??10/22/2022:?3.8 ??10/20/2022:?2.7 ??10/18/2022:?6.7 ADEQUACY?ASSESSMENT Adequacy?target?met.?Prescription?compliance?acceptable.?No?changes?indicated.? spKt/V,?URR ??10/13/2022:?1.52,?74.0 ??09/18/2022:?1.58,?75.0 ??08/31/2022:?-,?0.0 ACCESS?ASSESSMENT ??Access?Type:?AVGraft ??Access?SubType:?Unknown ??Access?Status:?Active?(In?Use)?-?04/29/2022 ??Access?Location:?Right?Upper?Arm ??Created:?01/26/2016 Flow ??09/25/2022:?999 ??09/02/2022:?259 ??08/28/2022:?317 Comments:?sp?fisulogram?1?mo?ago Vascular?access?reviewed.?Current?access?is?permanent?and?functioning?well. ANEMIA?ASSESSMENT Anemia?reviewed.?Anemia?targets?met.? HGB,?TSAT ??10/20/2022:?10.7,?- ??10/13/2022:?11.7,?19.0 ??10/07/2022:?11.1,?- ?? Ferritin ??08/19/2022:?1590.0 ??07/22/2022:?1004.0 ??05/20/2022:?1363.0 Mircera,?IVP?(mcg) ??09/23/2022:?200 ??09/09/2022:?200 ??08/26/2022:?200 Iron?Sucrose?(Venofer)?(mg) ??08/12/2022:?100 ??08/04/2022:?100 ??08/02/2022:?100 BMM?ASSESSMENT Comments:?Sensipar?was?NOT?the?cause?of?GI?upset? Bone?and?mineral?metabolism?parameters?reviewed.?Calcium?controll ed.?Counseled?regarding?dietary?compliance.?Hyperphosphatemia?noted.&# 160;Referred?to?supervisor vegetable farming?for?further?counseling.?PTH?within target.? Phosphorus,?Calcium ??10/20/2022:?5.9,?- ??10/13/2022:?5.7,?9.7 ??09/30/2022:?5.3,?- ?? PTH,?Intact ??09/18/2022:?305.0 ??08/19/2022:?235.0 ??07/22/2022:?391.0 Vitamin?D?(Calcitriol)?Oral?(mcg) ??10/22/2022:?0.75 ??10/20/2022:?0.75 ??10/18/2022:?0.75 Cinacalcet?(Sensipar)?(mg) ??10/22/2022:?30 ??10/20/2022:?30 ??10/18/2022:?30 NUTRITION?ASSESSMENT Nutrition?reviewed.?Caloric?intake?addressed.?Referred?to?dietiti an?for?further?counseling.?Patient?taking?protein?supplements.&#1 60;Potassium?controlled.? Albumin,?Potassium ??10/20/2022:?3.5,?- ??10/13/2022:?-,?4.3 ??09/18/2022:?3.3,?4.7 ?? eNPCR ??10/13/2022:?0.73 ??09/18/2022:?1.17 ??08/26/2022:?0.67 PHYSICAL?EXAM Exam?Performed.?Vital?Signs?Reviewed.?Lungs?-?Clear.?CV&#160 ;-?Blood?pressure?noted.?CV?-?RRR.?EXT?-?No?edema. DIAGNOSIS Chief?Complaint:?N18.6?End?stage?renal?disease Patient?is?stable.?Patient?discussed?with?nursing. ADDITIONAL?DIAGNOSES Additional?conditions?addressed?during?visit: ??N18.6?End?stage?renal?disease ??Comments:?see?MCP?note?above?I12.0?Hypertensive?chronic?kidney?disease?with?stage? 5?chronic?kidney?disease?or?end?stage?renal?disease ??Comments:?see?MCP?note?above Patient?data?updated?10/25/2022?at?8:56?AM Signed?By:?Elvi,?Luna,???on?10/25/2022?8:59:29?AM END OF DOCUMENT
--- OUTSIDE RECORDS SUMMARY | 2023-03-08 07:08 | XMS_ITS ---
Author Name MagyValeriRosemarie Address [address] [place] [address] Phone [phone] Organization [facility] e, NA DOCUMENT DISCLAIMER Multiple document versions may exist, please be sure you review the latest version. The information in the [facility] Progress Note Document represents a providers documented clinical note containing certain health and medical information. It may not contain the complete medical history for the patient and should be independently verified. The represented time in the document is Eastern Time PROVIDER ROUNDING NOTE BASIC Patient:?Shon?Sebas,?1945,?77y,?M Dialysis?Location:[facility] Attending?Remote Sensing Technologist:?Reji Service?Date:?03/07/2023 Service?Provider:?Rosemarie?Magy,?VASCULAR ULTRASOUND TECHNICIAN I?met?face?to?face?with?the?patient?today. OVERVIEW The?patient?presented?with?ESRD?on?dialysis Primary?cause?of?renal?failure:?Type?2?diabetes?mellitus&#16 0;with?diabetic?chronic?kidney?disease Comments:?monitor?GI?symptoms?with?sensipar:?denies?GI?symptoms?at?this?time VSS,?seen?on?HD?machine,?denies?needs?for?me?today Medications?and?labs?reviewed. DIALYSIS?PRESCRIPTION ??IHD?3x?Week?Start?date:?03/02/23 ??Dialyzer:?180NRe?Optiflux ??BFR:?550 ??DFR:?Autoflow?1.5 ??Potassium:?2.0 ??Sodium:?137 ??EDW:?121.5 ??Duration:?3:45 ??Calcium:?2.5 ??Bicarb:?35 ??Rx?updated?on:?03/02/2023 TREATMENT?ASSESSMENT Comments:?128/77 Blood?pressure?controlled.?No?changes?indicated.? BP?Sit?Pre ??03/04/2023:?142/75 ??03/02/2023:?136/75 ??02/28/2023:?139/87 BP?Sit?Post ??03/04/2023:?138/83 ??03/02/2023:?136/73 ??02/28/2023:?137/77 Tx?Duration ??03/04/2023:?3:48 ??03/02/2023:?3:44 ??02/28/2023:?3:57 Missed?Treatments 0?-?last?30?days 0?-?last?60?days FLUID?ASSESSMENT EDW?(kg) ??03/04/2023:?121.5 ??03/02/2023:?121.5 ??02/28/2023:?121.5 Weight?Pre?(kg) ??03/04/2023:?122.9 ??03/02/2023:?122.2 ??02/28/2023:?122.2 Weight?Post?(kg) ??03/04/2023:?121.3 ??03/02/2023:?121.0 ??02/28/2023:?121.3 PWV?(kg) ??03/04/2023:?-0.2 ??03/02/2023:?-0.5 ??02/28/2023:?-0.2 UF?Rate?(mL/kg/hr) ??03/04/2023:?3.5 ??03/02/2023:?2.7 ??02/28/2023:?1.9 ADEQUACY?ASSESSMENT Comments:?No?new?labs?to?review Adequacy?target?met.?Prescription?compliance?acceptable.?No?changes?indicated.? spKt/V,?URR ??02/16/2023:?1.53,?74.0 ??01/12/2023:?1.67,?77.0 ??12/15/2022:?1.58,?76.0 ACCESS?ASSESSMENT ??Access?Type:?AVGraft ??Access?SubType:?Unknown ??Access?Status:?Active?(In?Use)?-?04/29/2022 ??Access?Location:?Right?Upper?Arm ??Created:?01/26/2016 Flow ??02/25/2023:?1068 ??02/02/2023:?1480 ??12/24/2022:?1099 Vascular?access?reviewed.?Current?access?is?permanent?and?functioning?well. ANEMIA?ASSESSMENT HGB?at?goal.?Iron?parameters?acceptable.?CHINO?dose?adequate.& #160;No?changes?indicated.? HGB,?TSAT ??03/02/2023:?10.1,?- ??02/23/2023:?10.6,?- ??02/16/2023:?10.1,?22.0 ?? Ferritin ??02/16/2023:?1158.0 ??11/17/2022:?1192.0 ??11/10/2022:?957.0 Mircera,?IVP?(mcg) ??03/02/2023:?100 ??02/16/2023:?150 ??02/02/2023:?150 Iron?Sucrose?(Venofer)?(mg) ??03/04/2023:?100 ??03/02/2023:?100 ??02/28/2023:?100 BMM?ASSESSMENT Comments:?Reviewed?binder?compliance Phosphorus,?Calcium ??03/02/2023:?6.1,?- ??02/16/2023:?6.1,?8.8 ??01/12/2023:?5.2,?9.9 ?? PTH,?Intact ??02/16/2023:?431.0 ??01/19/2023:?519.0 ??11/10/2022:?419.0 Vitamin?D?(Calcitriol)?Oral?(mcg) ??03/04/2023:?0.75 ??03/02/2023:?0.75 ??02/28/2023:?0.75 Cinacalcet?(Sensipar)?(mg) ??03/04/2023:?90 ??03/02/2023:?90 ??02/28/2023:?90 NUTRITION?ASSESSMENT Comments:?No?new?labs?to?review Potassium?controlled.?Albumin?controlled.?No?changes?indicated.? Albumin,?Potassium ??02/16/2023:?3.7,?4.9 ??01/12/2023:?3.7,?4.2 ??12/15/2022:?3.5,?4.2 ?? eNPCR ??02/16/2023:?0.79 ??01/12/2023:?0.85 ??12/15/2022:?0.72 PHYSICAL?EXAM Exam?Not?Performed. DIAGNOSIS Chief?Complaint:?N18.6?End?stage?renal?disease Patient?data?updated?03/07/2023?at?7:12?AM Signed?By:?Magy,?Rosemarie,?VASCULAR ULTRASOUND TECHNICIAN??on?03/07/2023?7:15:49 AM END OF DOCUMENT
--- OUTSIDE RECORDS SUMMARY | 2023-03-08 07:08 | XMS_ITS ---
Author Name MagyValeriRosemarie Address [address] [place] [address] Phone [phone] Organization [facility] e, NA DOCUMENT DISCLAIMER Multiple document versions may exist, please be sure you review the latest version. The information in the [facility] Progress Note Document represents a providers documented clinical note containing certain health and medical information. It may not contain the complete medical history for the patient and should be independently verified. The represented time in the document is Eastern Time PROVIDER ROUNDING NOTE COMPREHENSIVE Patient:?Shon?Sebas,?1945,?77y,?M Dialysis?Location:?[facility] Attending?Design Cell Engineer:?Reji Service?Date:?01/19/2023 Service?Provider:?Rosemarie?Magy,?ASSEMBLY TECHNICIAN I?met?face?to?face?with?the?patient?today. OVERVIEW The?patient?presented?with?ESRD?on?dialysis Primary?cause?of?renal?failure:?Type?2?diabetes?mellitus&#16 0;with?diabetic?chronic?kidney?disease Comments:?VSS,?seen?on?HD?machine,?denies?needs?for?me today Medications?and?labs?reviewed. DIALYSIS?PRESCRIPTION ??IHD?3x?Week?Start?date:?01/14/23 ??Dialyzer:?180NRe?Optiflux ??BFR:?550 ??DFR:?Autoflow?1.5 ??Potassium:?2.0 ??Sodium:?137 ??EDW:?121 ??Duration:?3:45 ??Calcium:?2.5 ??Bicarb:?35 ??Rx?updated?on:?01/14/2023 TREATMENT?ASSESSMENT BP?Stand?Pre ??01/17/2023:?136/69 ??01/14/2023:?111/76 ??01/12/2023:?142/69 BP?Sit?Pre ??01/17/2023:?139/65 ??01/14/2023:?124/80 ??01/12/2023:?131/67 BP?Stand?Post ??01/17/2023:?144/80 ??01/14/2023:?151/78 BP?Sit?Post ??01/17/2023:?127/67 ??01/14/2023:?136/72 ??01/12/2023:?137/75 Tx?Duration ??01/17/2023:?3:48 ??01/14/2023:?3:48 ??01/12/2023:?3:52 Missed?Treatments 0?-?last?30?days 0?-?last?60?days FLUID?ASSESSMENT Comments:?120.5?kg? EDW?(kg) ??01/17/2023:?121.0 ??01/14/2023:?120.5 ??01/12/2023:?120.5 Weight?Pre?(kg) ??01/17/2023:?123.1 ??01/14/2023:?122.8 ??01/12/2023:?122.3 Weight?Post?(kg) ??01/17/2023:?120.5 ??01/14/2023:?120.9 ??01/12/2023:?120.2 PWV?(kg) ??01/17/2023:?-0.5 ??01/14/2023:?0.4 ??01/12/2023:?-0.3 UF?Rate?(mL/kg/hr) ??01/17/2023:?5.7 ??01/14/2023:?4.1 ??01/12/2023:?4.5 ADEQUACY?ASSESSMENT Adequacy?target?met.?Prescription?compliance?acceptable.?No?changes?indicated.? spKt/V,?URR ??01/12/2023:?1.67,?77.0 ??12/15/2022:?1.58,?76.0 ??11/10/2022:?1.65,?77.0 ACCESS?ASSESSMENT ??Access?Type:?AVGraft ??Access?SubType:?Unknown ??Access?Status:?Active?(In?Use)?-?04/29/2022 ??Access?Location:?Right?Upper?Arm ??Created:?01/26/2016 Flow ??12/24/2022:?1099 ??10/29/2022:?1034 ??09/25/2022:?999 Vascular?access?reviewed.?Current?access?is?permanent?and?functioning?well. ANEMIA?ASSESSMENT Anemia?reviewed.?Anemia?targets?met.? HGB,?TSAT ??01/12/2023:?11.4,?18.0 ??01/05/2023:?10.9,?- ??12/29/2022:?10.9,?- ?? Ferritin ??11/17/2022:?1192.0 ??11/10/2022:?957.0 ??08/19/2022:?1590.0 Mircera,?IVP?(mcg) ??01/05/2023:?225 ??12/22/2022:?225 ??12/08/2022:?200 Iron?Sucrose?(Venofer)?(mg) ??01/05/2023:?100 ??12/22/2022:?100 ??12/08/2022:?100 BMM?ASSESSMENT Comments:?Sensipar?was?NOT?the?cause?of?GI?upset?.&#160 ;Reports?no?longer?has?GI?upset?post?dialysis.?? Increase?sensipar?to?help?w?phos.?decrease?calcitriol?:&#160 ;phosphorous?improving?since?changes PTH?within?target.? Phosphorus,?Calcium ??01/12/2023:?5.2,?9.9 ??12/15/2022:?6.4,?9.6 ??12/01/2022:?-,?9.8 ?? PTH,?Intact ??11/10/2022:?419.0 ??09/18/2022:?305.0 ??08/19/2022:?235.0 Vitamin?D?(Calcitriol)?Oral?(mcg) ??01/17/2023:?0.75 ??01/14/2023:?0.75 ??01/12/2023:?0.75 Cinacalcet?(Sensipar)?(mg) ??01/17/2023:?60 ??01/14/2023:?60 ??01/12/2023:?60 NUTRITION?ASSESSMENT Nutrition?reviewed.?Potassium?controlled.? Albumin,?Potassium ??01/12/2023:?3.7,?4.2 ??12/15/2022:?3.5,?4.2 ??11/10/2022:?3.5,?4.4 ?? eNPCR ??01/12/2023:?0.85 ??12/15/2022:?0.72 ??11/10/2022:?0.83 PHYSICAL?EXAM Exam?Not?Performed. DIAGNOSIS Chief?Complaint:?N18.6?End?stage?renal?disease Patient?data?updated?01/19/2023?at?8:21?AM Signed?By:?Magy,?Rosemarie,?ASSEMBLY TECHNICIAN??on?01/19/2023?8:22:29 AM END OF DOCUMENT
--- OUTSIDE RECORDS SUMMARY | 2023-03-08 07:08 | XMS_ITS ---
Author Name Luna Boles Address [address] [place] [address] Phone [phone] Organization [facility] e, NA DOCUMENT DISCLAIMER Multiple document versions may exist, please be sure you review the latest version. The information in the [facility] Progress Note Document represents a providers documented clinical note containing certain health and medical information. It may not contain the complete medical history for the patient and should be independently verified. The represented time in the document is Eastern Time PROVIDER ROUNDING NOTE COMPREHENSIVE Patient:?Shon?Sebas,?1945,?77y,?M Dialysis?Location:?[facility] Attending?Inter Com Installer:?Magy?Len Service?Date:?01/05/2023 Service?Provider:?Luna?Elvi,? I?met?face?to?face?with?the?patient?today. OVERVIEW The?patient?presented?with?ESRD?on?dialysis Primary?cause?of?renal?failure:?Type?2?diabetes?mellitus&#16 0;with?diabetic?chronic?kidney?disease Medications?and?labs?reviewed. DIALYSIS?PRESCRIPTION ??IHD?3x?Week?Start?date:?12/24/22 ??Dialyzer:?180NRe?Optiflux ??BFR:?550 ??DFR:?Autoflow?1.5 ??Potassium:?2.0 ??Sodium:?137 ??EDW:?121 ??Duration:?3:45 ??Calcium:?2.5 ??Bicarb:?35 ??Rx?updated?on:?12/24/2022 TREATMENT?ASSESSMENT Blood?pressure?controlled.?No?changes?indicated.? BP?Stand?Pre ??01/03/2023:?143/78 ??12/31/2022:?148/78 ??12/29/2022:?159/67 BP?Sit?Pre ??01/03/2023:?144/78 ??12/31/2022:?132/90 ??12/29/2022:?140/101 BP?Stand?Post ??01/03/2023:?118/68 ??12/31/2022:?119/72 ??12/29/2022:?131/74 BP?Sit?Post ??01/03/2023:?128/70 ??12/31/2022:?131/72 ??12/29/2022:?108/63 Tx?Duration ??01/03/2023:?3:10 ??12/31/2022:?3:45 ??12/29/2022:?3:50 Missed?Treatments 0?-?last?30?days 0?-?last?60?days FLUID?ASSESSMENT Comments:?120.5?kg? Fluid?status?acceptable.?Interdialytic?weight?gain?acceptable.?No ?changes?indicated.? EDW?(kg) ??01/03/2023:?121.0 ??12/31/2022:?121.0 ??12/29/2022:?121.0 Weight?Pre?(kg) ??01/03/2023:?123.1 ??12/31/2022:?122.4 ??12/29/2022:?122.2 Weight?Post?(kg) ??01/03/2023:?120.5 ??12/31/2022:?120.5 ??12/29/2022:?120.5 PWV?(kg) ??01/03/2023:?-0.5 ??12/31/2022:?-0.5 ??12/29/2022:?-0.5 UF?Rate?(mL/kg/hr) ??01/03/2023:?6.8 ??12/31/2022:?4.2 ??12/29/2022:?3.7 ADEQUACY?ASSESSMENT Adequacy?target?met.?Prescription?compliance?acceptable.?No?changes?indicated.? spKt/V,?URR ??12/15/2022:?1.58,?76.0 ??11/10/2022:?1.65,?77.0 ??10/13/2022:?1.52,?74.0 ACCESS?ASSESSMENT ??Access?Type:?AVGraft ??Access?SubType:?Unknown ??Access?Status:?Active?(In?Use)?-?04/29/2022 ??Access?Location:?Right?Upper?Arm ??Created:?01/26/2016 Flow ??12/24/2022:?1099 ??10/29/2022:?1034 ??09/25/2022:?999 Vascular?access?reviewed.?Current?access?is?permanent?and?functioning?well. ANEMIA?ASSESSMENT Anemia?reviewed.?Anemia?targets?met.? HGB,?TSAT ??12/29/2022:?10.9,?- ??12/22/2022:?10.1,?- ??12/15/2022:?10.0,?20.0 ?? Ferritin ??11/17/2022:?1192.0 ??11/10/2022:?957.0 ??08/19/2022:?1590.0 Mircera,?IVP?(mcg) ??12/22/2022:?225 ??12/08/2022:?200 ??11/24/2022:?200 Iron?Sucrose?(Venofer)?(mg) ??12/22/2022:?100 ??12/08/2022:?100 ??11/24/2022:?100 BMM?ASSESSMENT Comments:?Sensipar?was?NOT?the?cause?of?GI?upset?.&#160 ;Reports?no?longer?has?GI?upset?post?dialysis.?? Increase?sensipar?to?help?w?phos.?decrease?calcitriol? Bone?and?mineral?metabolism?parameters?reviewed.?Calcium?controll ed.?Counseled?regarding?dietary?compliance.?Hyperphosphatemia?noted.&# 160;Referred?to?disease case manager rn?for?further?counseling.?Vitamin?D? analogue?adjusted.?Calcimimetic?initiated?/?adjusted.?PTH?within target.? Phosphorus,?Calcium ??12/15/2022:?6.4,?9.6 ??12/01/2022:?-,?9.8 ??11/24/2022:?6.1,?- ?? PTH,?Intact ??11/10/2022:?419.0 ??09/18/2022:?305.0 ??08/19/2022:?235.0 Vitamin?D?(Calcitriol)?Oral?(mcg) ??01/03/2023:?1.0 ??12/31/2022:?1.0 ??12/29/2022:?1.0 Cinacalcet?(Sensipar)?(mg) ??01/03/2023:?30 ??12/31/2022:?30 ??12/29/2022:?30 NUTRITION?ASSESSMENT Nutrition?reviewed.?Caloric?intake?addressed.?Referred?to?dietiti an?for?further?counseling.?Patient?taking?protein?supplements.&#1 60;Potassium?controlled.? Albumin,?Potassium ??12/15/2022:?3.5,?4.2 ??11/10/2022:?3.5,?4.4 ??10/20/2022:?3.5,?- ?? eNPCR ??12/15/2022:?0.72 ??11/10/2022:?0.83 ??10/13/2022:?0.73 PHYSICAL?EXAM Exam?Performed.?Vital?Signs?Reviewed.?Lungs?-?Clear.?CV&#160 ;-?Blood?pressure?noted.?CV?-?RRR.?EXT?-?No?edema. DIAGNOSIS Chief?Complaint:?N18.6?End?stage?renal?disease Patient?is?stable.?Patient?discussed?with?nursing. Patient?data?updated?01/05/2023?at?8:45?AM Signed?By:?Elvi,?Luna,???on?01/05/2023?8:49:32?AM END OF DOCUMENT
--- OUTSIDE RECORDS SUMMARY | 2023-03-08 07:08 | XMS_ITS ---
Author Name Magy Harrington Address [address] [place] [address] Phone [phone] Organization [facility] e, NA DOCUMENT DISCLAIMER Multiple document versions may exist, please be sure you review the latest version. The information in the [facility] Progress Note Document represents a providers documented clinical note containing certain health and medical information. It may not contain the complete medical history for the patient and should be independently verified. The represented time in the document is Eastern Time PROVIDER ROUNDING NOTE COMP Provider?Rounding?Note?Comp?-?Shon?Sebas?-?Chart?#: [id number] Method?of?Interaction:?Face?to?face Date?of?Interaction:?02/23/2023 Patient?is?stable ?-?Optimal?weight?addressed?with?patient?and?staff.? ?-?Medications?and?labs?reviewed.? Patient?issues?include: Overall?he?is?feeling?well.?Did?increase?EDW?by?0.5&#16 0;kg?as?having?a?lot?of?nausea?at?end?of?HD?treatment. Prior?Treatment:?02/21/2023? Dialyzer:?180NRe?Optiflux? Dialysate:?2.0?K,?2.5 Ca,?0.75?Mg,?100?Dextrose?(G2225)? Actual?Time:?03:49?Prescribed?Time:?3:45? Avg?BFR:?550?Avg?DFR:?800? Wt?Gain?(kg):?2.40?EDW?(kg):?121.00? post?Wt?(kg):? ADEQUACY ?spKt/V?eKdrt/V?OLC?(Rigo)?spKtv?1.53?02/16/23 ???1.34 ?02/16/23 ???1.60?02/21/23 ???1.67?01/12/23 ???1.47 ?01/12/23 ???1.57?02/18/23 ???1.58?12/15/22 ???1.37 ?12/15/22 ???1.61?02/16/23 ?URR?Potassium,?Serum?&#160 ;?Bicarbonate?Creatinine?%?mEq/L?mEq/L?&#16 0;?mg/dL ?74?02/16/23 ?? 4.9?02/16/23 ???27?02/16/23 ???5.41?02/16/23 ???77?01/12/23 ?? 4.2?01/12/23 ???22?01/12/23 ???5.61?01/12/23 ???76?12/15/22 ?? 4.2?12/15/22 ???24?12/15/22 ???5.58?12/15/22 ?-?Adequacy?parameters?reviewed? Adequacy ?-?Adequacy?target?met?Sitting?BP?Pre?Sitting BP?Post?130?/?71??02/21/23?139?/?82??02/21/23?133?/?73??02/18/23?134?/?74??02/18/23?125?/?71??02/16/23?137?/?77??02/16/23? ?? Blood?Pressure ?-?Blood?pressure?controlled? Fluid?Status ?-?Fluid?status?acceptable? Interdialytic?Weight?Gain ?-?Interdialytic?weight?gain?acceptable? Prescription?Compliance ?-?Prescription?compliance?acceptable? ANEMIA ?HGB? Transferrin?Sat.?(Calc) ?Ferritin?g/dL?%?ng/m L?10.1?02/16/23? ??22?02/16/23?1158?02/16/23? ??10.3?02/09/23? ??18?01/12/23?1192?11/17/22? ??10.2?02/02/23? ??20?12/15/22?957?11/10/22? Erythropoietin-Stimulating?Agents?(CHINO)?Administrations ??150?mcg?Mircera?02/16/23 ??150?mcg?Mircera?02/02/23 ??225?mcg?Mircera?01/05/23 IV?Iron?Administrations ??100?mg?Venofer?02/16/23 ??100?mg?Venofer?02/02/23 ??100?mg?Venofer?01/19/23 ?-?Anemia?reviewed? ?-?Anemia?targets?met? ?-?CHINO?adjusted?per?protocol? BONE?AND?MINERAL?METABOLISM ?Calcium,?Total?Calcium,?Corrected?Phosphorous? &#160 ;?PTH-Intact,?Plasma?mg/dL?mg/dL?mg/dL?pg/mL?8.8?02/16/23? ??9.0?02/16/23? ??6.1?&#16 0;???02/16/23? ??431?02/16/23? ??9.9?01/12/23? ??10.1 ?01/12/23? ??5.2?&#1 60;??01/12/23? ??519?01/19/23? ??9.6?12/15/22? ??10.0 ?12/15/22? ??6.4?&#1 60;??12/15/22? ??419?11/10/22? Vitamin?D?25?Hydroxy ??35.6?09/18/22 ??34.4?07/22/22 ??31.6?05/13/22 Vitamin?D?Analogue?Administrations ??0.75?mcg?Vitamin?D??02/21/23 ??0.75?mcg?Vitamin?D??02/18/23 ??0.75?mcg?Vitamin?D??02/16/23 ?-?Bone?and?mineral?metabolism?parameters?reviewed? ?-?Calcium?controlled? ?-?Phosphorus?binders?adjusted? ?-?Counseled?regarding?dietary?compliance? ?-?Hyperphosphatemia?noted? ?-?Referred?to?dietitian?for?further?counseling? CALCIMIMETICS 02/21/2023?90?mg?Sensipar 02/18/2023?90?mg?Sensipar 02/16/2023?90?mg?Sensipar PTH ?-?PTH?within?target? PTH?better.??Did?add?phos?binder?with?snacks. NUTRITION ?Albumin?eNPCR?g/dL?g/kg/day?3.7?02/16/23? ??0.79 ?02/16/23? ??3.7?01/12/23? ??0.85 ?01/12/23? ??3.5?12/15/22? ??0.72 ?12/15/22? ?-?Nutrition?reviewed? ?-?Caloric?intake?addressed? ?-?Referred?to?dietitian?for?further?counseling? ?-?Patient?taking?protein?supplements? Stable HOME?MEDICATIONS ?albuterol?sulfate?(albuterol?sulfate)??2.5?mg/3?mL?(0. 083?%),?inhl,?1?vial?four?times?a?day ?albuterol?sulfate?(albuterol?sulfate)??90?mcg/actuation,?in hl,?2?puff?every?six?hours ?allopurinol?(allopurinol)??100?mg,?oral,?1?tablet?once?a?day??[for?gout] ?atorvastatin?(atorvastatin)??80?mg,?oral,?1?tablet?once?a?day ?Brilinta?(ticagrelor)??90?mg,?oral,?1?tablet?twice a?day??[(Ticagrelor)] ?carvedilol?(carvedilol)??6.25?mg,?oral,?1/2?tablet?every?evening ?cetirizine?(cetirizine)??10?mg,?oral,?1?capsule?once a?day ?cholecalciferol?(vitamin?D3)?(cholecalciferol?(vitamin?d3))?&#16 0;50?mcg?(2,000?unit),?oral,?1?capsule?once?a?day ?Coreg?(carvedilol)??6.25?mg,?oral,?1?tablet?every morning??[(Carvedilol)] ?Daliresp?(roflumilast)??500?mcg,?oral,?1?tablet?once a?day ?docusate?sodium?(docusate?sodium)??100?mg,?oral,?1&#16 0;capsule?twice?a?day??[for?constipation] ?Eliquis?(apixaban)??5?mg,?oral,?1?tablet?twice?a day??[(Apixaban)] ?famotidine?(famotidine)??20?mg,?oral,?1?tablet?twice a?day ?Fish?Oil?(omega?2-zwg-cib-fish?oil)??1,000?mg?(120&#16 0;mg-180?mg),?oral,?1?capsule?twice?a?day ?furosemide?(furosemide)??40?mg,?oral,?1?tablet?once a?day??[at?1?am] ?gabapentin?(gabapentin)...?There?are?additional?active?home&#160 ;medications?for?this?patient.?Please?view?in?Clinical?Summary VASCULAR?ACCESS ?Type?Exit?Site?&#1 60;??Status?Access?ID?AVGraft-Unknown?Upper?Arm-Right?Active?(In?Use)?[id number]? Access?Flows ??1480mL?per?min?02/02/23 ??1099mL?per?min?12/24/22 ??1034mL?per?min?10/29/22 ??-?Vascular?access?reviewed? ??-?Current?access?is?functioning?well.? EXAM ?-?Vital?signs?reviewed? Pulmonary ?-?LUNGS?-?clear? Cardiovascular ?-?CV?-?Blood?pressure?noted? ?-?CV?-?RRR? Edema ?-?EXT?-?No?edema? Feet ?-?EXT?-?no?ulcers? Other ?-?AVF/AVG?positive?thrill/bruit? TRANSPLANT?STATUS ?Person?Taught: ??-?Patient? ?Additional?Education?Required:?No ?Date?Given:?05/13/2022 INTEREST?AND?ELIGIBILITY?(If?changes?are?made,?Please?notify?SW?below) ?Date?of?discussion?from?transplant?assessment:?02/02/2023 ?Patient?already?on?transplant?list??No TOBACCO?CESSATION ??Tobacco?use:?Former?user ??Type:?Cigarettes ??Packs?per?day:? 3 ??Years?smoked:? 17 ??Frequency:?Daily Magy?SAVANAH Harrington END OF DOCUMENT
--- OUTSIDE RECORDS SUMMARY | 2023-03-08 07:08 | XMS_ITS ---
Author Name MagyValeriRosemarie Address [address] [place] [address] Phone [phone] Organization [facility] e, NA DOCUMENT DISCLAIMER Multiple document versions may exist, please be sure you review the latest version. The information in the [facility] Progress Note Document represents a providers documented clinical note containing certain health and medical information. It may not contain the complete medical history for the patient and should be independently verified. The represented time in the document is Eastern Time PROVIDER ROUNDING NOTE BASIC Patient:?Shon?Sebas,?1945,?77y,?M Dialysis?Location:[facility] Attending?Pit Clerk:?Reji Service?Date:?11/29/2022 Service?Provider:?Rosemarie?Magy,?EQUIPMENT INSTALLATION PROFESSIONAL I?met?face?to?face?with?the?patient?today. 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 DIALYSIS?PRESCRIPTION ??IHD?3x?Week?Start?date:?10/13/22 ??Dialyzer:?180NRe?Optiflux ??BFR:?550 ??DFR:?Autoflow?1.5 ??Potassium:?2.0 ??Sodium:?137 ??EDW:?120 ??Duration:?3:45 ??Calcium:?2.5 ??Bicarb:?35 ??Rx?updated?on:?10/18/2022 TREATMENT?ASSESSMENT BP?Sit?Pre ??11/26/2022:?113/63 ??11/24/2022:?118/66 ??11/22/2022:?114/62 BP?Sit?Post ??11/26/2022:?126/71 ??11/24/2022:?128/73 ??11/22/2022:?112/65 Tx?Duration ??11/26/2022:?3:46 ??11/24/2022:?3:46 ??11/22/2022:?3:47 Missed?Treatments 0?-?last?30?days 0?-?last?60?days FLUID?ASSESSMENT Comments:?Stable Fluid?status?acceptable.?Interdialytic?weight?gain?acceptable.?No ?changes?indicated.? EDW?(kg) ??11/26/2022:?120.0 ??11/24/2022:?120.0 ??11/22/2022:?120.0 Weight?Pre?(kg) ??11/26/2022:?122.4 ??11/24/2022:?123.4 ??11/22/2022:?122.7 Weight?Post?(kg) ??11/26/2022:?120.2 ??11/24/2022:?120.0 ??11/22/2022:?120.7 PWV?(kg) ??11/26/2022:?0.2 ??11/24/2022:?0.0 ??11/22/2022:?0.7 UF?Rate?(mL/kg/hr) ??11/26/2022:?4.9 ??11/24/2022:?7.5 ??11/22/2022:?4.4 ADEQUACY?ASSESSMENT Adequacy?target?met.?Prescription?compliance?acceptable.?No?changes?indicated.? spKt/V,?URR ??11/10/2022:?1.65,?77.0 ??10/13/2022:?1.52,?74.0 ??09/18/2022:?1.58,?75.0 ACCESS?ASSESSMENT ??Access?Type:?AVGraft ??Access?SubType:?Unknown ??Access?Status:?Active?(In?Use)?-?04/29/2022 ??Access?Location:?Right?Upper?Arm ??Created:?01/26/2016 Flow ??10/29/2022:?1034 ??09/25/2022:?999 ??09/02/2022:?259 Vascular?access?reviewed.?Current?access?is?permanent?and?functioning?well. ANEMIA?ASSESSMENT Anemia?reviewed.? HGB,?TSAT ??11/24/2022:?9.2,?- ??11/17/2022:?9.8,?- ??11/10/2022:?9.7,?17.0 ?? Ferritin ??11/17/2022:?1192.0 ??11/10/2022:?957.0 ??08/19/2022:?1590.0 Mircera,?IVP?(mcg) ??11/24/2022:?200 ??11/10/2022:?150 ??10/27/2022:?150 Iron?Sucrose?(Venofer)?(mg) ??11/24/2022:?100 ??11/22/2022:?100 ??11/19/2022:?100 BMM?ASSESSMENT Comments:?Sensipar?was?NOT?the?cause?of?GI?upset?.&#160 ;?Reports?intremittent?GI?upset?post?dialysis:?weight?stable ?with?no?significant?fluid?draws?during?treatment.?? Bone?and?mineral?metabolism?parameters?reviewed.?PTH?within?target.? Phosphorus,?Calcium ??11/24/2022:?6.1,?- ??11/10/2022:?5.5,?9.5 ??10/20/2022:?5.9,?- ?? PTH,?Intact ??11/10/2022:?419.0 ??09/18/2022:?305.0 ??08/19/2022:?235.0 Vitamin?D?(Calcitriol)?Oral?(mcg) ??11/26/2022:?1.0 ??11/24/2022:?1.0 ??11/22/2022:?1.0 Cinacalcet?(Sensipar)?(mg) ??11/26/2022:?30 ??11/24/2022:?30 ??11/22/2022:?30 NUTRITION?ASSESSMENT Nutrition?reviewed.?Potassium?controlled.? Albumin,?Potassium ??11/10/2022:?3.5,?4.4 ??10/20/2022:?3.5,?- ??10/13/2022:?-,?4.3 ?? eNPCR ??11/10/2022:?0.83 ??10/13/2022:?0.73 ??09/18/2022:?1.17 PHYSICAL?EXAM Exam?Not?Performed. DIAGNOSIS Chief?Complaint:?N18.6?End?stage?renal?disease Patient?data?updated?11/29/2022?at?8:40?AM Signed?By:?Magy,?Rosemarie,?EQUIPMENT INSTALLATION PROFESSIONAL??on?11/29/2022?8:48:50 AM END OF DOCUMENT
--- OUTSIDE RECORDS SUMMARY | 2023-03-08 07:09 | XMS_ITS | Patient Health Record ---
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 confirmed 765069669 Problem intermediate card tender (current) use of opiate analgesic Z79.891 confirmed [id number] Problem Other lobsterman (current) drug therapy Z79.899 confirmed [id number] Problem Obstructive sleep apnea (adult) (pediatric) G47.33 confirmed [id number] ALLERGIES Allergen (clinical drug ingredient) Drug/Non Drug Allergy documented on EMR Reaction Allergy Type Onset Date Status Septra Unknown Drug Allergy Active felodipine(NDC Code:[address]-23) Unknown Drug Allergy Active ciprofloxacin ciprofloxacin(NDC Code:[address]-89) Unknown Drug Allergy Active ENCOUNTERS from 1945 to 2023-03-08 Encounter Location Date Provider Diagnosis [facility] [address] [place], [place] [id number] Feb, Adria Mccoy [facility] [address] [place], [place] [id number] January, Adria Mccoy Type 2 diabetes mellitus with diabetic polyneuropathy E11.42 ; Obstructive sleep apnea (adult) (pediatric) G47.33 and group home (current) use of opiate analgesic Z79.891 [facility] [address] [place], [place] [id number] Nov, Adria Mccoy [facility], [facility] [address] [place] [id number] Oct, Adria Mccoy Type 2 diabetes mellitus with diabetic polyneuropathy E11.42 ; Obstructive sleep apnea (adult) (pediatric) G47.33 and group home (current) use of opiate analgesic Z79.891 [facility], [address] [id number] Jun, Adria Mccoy Type 2 diabetes mellitus with diabetic polyneuropathy E11.42 ; Obstructive sleep apnea (adult) (pediatric) G47.33 and group home (current) use of opiate analgesic Z79.891 [facility], [address] [id number] Feb, Adria Mccoy Type 2 diabetes mellitus with diabetic polyneuropathy E11.42 ; Obstructive sleep apnea (adult) (pediatric) G47.33 and intermediate card tender (current) use of opiate analgesic Z79.891 [facility], [address] [id number] Nov, Adria Mccoy Type 2 diabetes mellitus with diabetic polyneuropathy E11.42 ; Obstructive sleep apnea (adult) (pediatric) G47.33 and intermediate card tender (current) use of opiate analgesic Z79.891 [facility], [address] [id number] Jul, Adria Mccoy Type 2 diabetes mellitus with diabetic polyneuropathy E11.42 ; Obstructive sleep apnea (adult) (pediatric) G47.33 and intermediate card tender (current) use of opiate analgesic Z79.891 [facility], [address] [id number] Mar, Adria Mccoy Type 2 diabetes mellitus with diabetic polyneuropathy E11.42 ; Obstructive sleep apnea (adult) (pediatric) G47.33 and group home (current) use of opiate analgesic Z79.891 [facility], [address] [id number] Nov, Adria Mccoy Type 2 diabetes mellitus with diabetic polyneuropathy E11.42 ; Obstructive sleep apnea (adult) (pediatric) G47.33 and intermediate card tender (current) use of opiate analgesic Z79.891 [facility], [address] [place] [id number] Aug, Adria Mccoy Type 2 diabetes mellitus with diabetic polyneuropathy E11.42 ; Obstructive sleep apnea (adult) (pediatric) G47.33 and group home (current) use of opiate analgesic Z79.891 [facility], [facility] [address] [place], [place] [id number] Apr, Adria Mccoy Type 2 diabetes mellitus with diabetic polyneuropathy E11.42 ; Obstructive sleep apnea (adult) (pediatric) G47.33 and group home (current) use of opiate analgesic Z79.891 [facility], [facility] [address] [place], [place] [id number] Dec, Adria Mccoy Type 2 diabetes mellitus with diabetic polyneuropathy E11.42 ; Obstructive sleep apnea (adult) (pediatric) G47.33 and intermediate card tender (current) use of opiate analgesic Z79.891 [facility], [facility] [address] [place], [place] [id number] Sep, Adria Mccoy Type 2 diabetes mellitus with diabetic polyneuropathy E11.42 ; Obstructive sleep apnea (adult) (pediatric) G47.33 and group home (current) use of opiate analgesic Z79.891 [facility] [address], [place] [id number] Jul, Adria Mccoy Type 2 diabetes mellitus with diabetic polyneuropathy E11.42 and Obstructive sleep apnea (adult) (pediatric) G47.33 [facility], [facility] [address], [place] [id number] Jun, Adria Mccoy Type 2 diabetes mellitus with diabetic polyneuropathy E11.42 and Obstructive sleep apnea (adult) (pediatric) G47.33 [facility], [facility] [address] [place], [place] [id number] May, Adria Mccoy Other [facility] (current) drug therapy Z79.899 [facility], [facility] [address] [place], [place] [id number] May, Chantell Pradhan Type 2 diabetes mellitus with diabetic polyneuropathy E11.42 ; Obstructive sleep apnea (adult) (pediatric) G47.33 and Other [facility] (current) drug therapy Z79.899 SOCIAL HISTORY Tobacco Use: Social History Observation Description Date Details (start date - stop date) Former Smoker 09/12/1984 Sex Assigned At : Social History Observation Description Sex Assigned At Unknown alcohol Question Answer Notes Did you have a drink containing alcohol in the p ast year? No Points 0 Interpretation Negative Tobacco use: Question Answer Notes : former smoker When did you stop smoking? 09/12/1984 REASON FOR REFERRAL from 1945 to 2023-03-08 Referring Provider First Name [place] Lebron ff Referring Provider Last Name [place] Ref[facility] Referred Provider Adria Mccoy Referred Address [address] [place], [id number] Referred Provider Specialty [facility] Managem ent Referral Priority Routine General Notes Courtney Vazquez 03/14 10:13:55 AM >Appt 06-11-2019 Diagnosis 1 Type 2 diabetes casey itus with diabetic polyneuropathy (E11.42) Referring Provider First Name Manhattan Lebron ff Referring Provider Last Name [place] Ref[facility] Referred Provider Adria Mccoy Referred Address [address] [place], [id number] Referred Provider Specialty [facility] Referral Priority Routine Diagnosis 1 Type 2 diabetes casey itus with diabetic polyneuropathy (E11.42) Referring Provider First Name Manhattan Lebron ff Referring Provider Last Name [place] Ref[facility] Referred Provider Adria Mccoy Referred Address [address] [place], [id number] Referred Provider Specialty [facility] Referral Priority Routine Diagnosis 1 Type 2 diabetes casey itus with diabetic polyneuropathy (E11.42) Referring Provider First Name Manhattan Lebron ff Referring Provider Last Name [place] Ref[facility] Referred Provider Adria Mccoy Referred Address [address] [place], [id number] Referred Provider Specialty [facility] Managem [facility] Referral Priority Routine Diagnosis 1 Type 2 diabetes casey itus with diabetic polyneuropathy (E11.42) Referring Provider First Name Manhattan Lebron ff Referring Provider Last Name [place] [facility] Referred Provider Adria Mccoy Referred Address [address] [place], [id number] Referred Provider Specialty Pain Managem [facility] Referral Priority Routine Diagnosis 1 Type 2 diabetes casey itus with diabetic polyneuropathy (E11.42) Referring Provider First Name Manhattan Lebron ff Referring Provider Last Name [place] Ref[facility] Referred Provider Adria Mccoy Referred Address [address] [place], [place],[phone] Referred Provider Specialty [facility] Referral Priority Routine VITAL SIGNS from 1945 to 2023-03-08 Height 70 in January, Weight 267.2 lbs January, BMI 38.34 kg/m2 January, Temperature 94.3 degrees Fahrenheit January, Oximetry 90 % January, Blood pressure systolic 139 mm Hg January, Blood pressure diastolic 72 mm Hg January, MEDICATIONS Medication SIG (Take, Route, Frequency, Duration) Notes Start Date End Date Status furosemide 40 mg 1 tab(s) orally once a day for 30 day(s) Active nitroglycerin 0.4 mg 1 tab(s) sublingual ly every 5 minutes Active Eliquis 5 mg as directed orally 2 times a day Active olodaterol-tiotropium 2.5 mcg-2.5 mcg/inh 2 puff(s) inhaled every 24 hours Active gabapentin 300 mg 1 cap po orally 2 times a day Active ondansetron 8 mg 1 tab(s) orally 3 times a day Active Fish Oil 1000 mg 1 cap orally 2 times a day Active Renal Vitamin Vitamin B Complex with C 1 tab(s) orally once a day for 30 day(s) Active Lantus 100 units/mL subcutaneously as directed Active docusate sodium 100 mg 1 tab orally 2 ti mes a day Active cetirizine 10 mg 1 tab orally once a day Active acetaminophen-oxycodone 325 mg-5 mg 1/2 - 1 tab po orally Q4-6H prn pain (max 1 1/2 per day) for 30 day(s) ICD-10: G89.29 Feb, Active famotidine 20 mg 1 tab(s) orally 2 times a day Active liraglutide 18 mg/3 mL as directed subcutaneously once a day for 30 day(s) Active carvedilol 6.25 mg 1 tab orally 2 times a day Active Daliresp 250 mcg 1 tab orally once a day Active isosorbide mononitrate 30 mg 1 tab(s) orally once a day (in the morning) for 30 day(s) Active lidocaine-prilocaine topical 2.5%-2.5% 1 yoselin applied topically once for 1 dose(s) Active ticagrelor 90 mg 1 tab(s) orally 2 times a day for 30 day(s) Active spironolactone 25 mg 2 tabs orally once a day Active cholecalciferol 50 mcg 1 tab orally once a day Active allopurinol 100 mg as directed orally Active sevelamer 800 mg 3 tabs orally 3 time s a day Active atorvastatin 80 mg 1 tab orally once a day Active Spiriva Respimat 1.25 mcg/inh 2 puffs inhaled once a day Active Albuterol (Eqv-ProAir HFA) 90 mcg/inh 2 puff(s) inhaled every 6 hours Active RESULTS from 1945 to 2023-03-08 Component Value Reference Range Notes [employer] Results Reviewed date:01/17/2023 15:25:13 Interpretation: Performing Lab:, [id number] [place], [id number] [facility] [id number] Aleta Sunshine MD Notes/Report: 6-YVETTE (Heroin metabolite) Quantification negative ng/m L 1 ng/mL Alprazolam negative ng/mL 1 ng/mL Amphetamine negative ng/mL 5 ng/mL Buprenorphine Quantification negative ng/mL 1 ng/mL Carisoprodol Quantification negative ng/mL 5 ng/mL Clonazepam negative ng/mL 1 ng/mL Clonazepam Metabolite Quantification negative ng/mL 1 ng/mL Cocaine Metabolite negative ng/mL 2 ng/mL Cocaine Quantification negative ng/mL 2 ng/mL Codeine negative ng/mL 1 ng/mL Dextromethorphan Quantification negative ng/mL 1 ng/mL Diazepam negative ng/mL 1 ng/mL EDDP (Methadone metabolite) negative ng/mL 2 ng/mL Fentanyl Quantification negative ng/mL 0.2 ng/mL Gabapentin Quantification positive->1600 ng/mL 10 ng/m L Hydrocodone negative ng/mL 1 ng/mL Hydromorphone negative ng/mL 1 ng/mL Levorphanol / Dextrorphan Quantification negative ng/m L 1 ng/mL Lorazepam negative ng/mL 1 ng/mL MDMA negative ng/mL 5 ng/mL Meperidine Quantification negative ng/mL 1 ng/mL Meprobamate Quantification negative ng/mL 5 ng/mL Methadone negative ng/mL 2 ng/mL Methamphetamine negative ng/mL 5 ng/mL Methylphenidate Quantification negative 1 Morphine negative ng/mL 1 ng/mL R-Yzwegsyfc-Ctcsyjfv Quantification negative ng/mL 5 n g/mL Naltrexol (Naltrexone metabo lite) Quantification negative ng/mL 1 ng/mL Naltrexone Quantification negative ng/mL 1 ng/mL Norbuprenorphine Quantification negative ng/mL 2 ng/mL Nordiazepam negative ng/mL 1 ng/mL Norfentanyl Quantification negative ng/mL 1 ng/mL Norhydrocodone Quantification negative ng/mL 2 ng/mL Normeperidine Quantification negative ng/mL 2 ng/mL Noroxycodone Quantification positive-12.855 ng/mL 2 ng /mL Oxazepam negative ng/mL 2 ng/mL Oxycodone positive-62.255 ng/mL 1 ng/mL Oxymorphone negative ng/mL 1 ng/mL Phencyclidine negative ng/mL 1 ng/mL Pregabalin Quantification negative ng/mL 5 ng/mL Ritalinic Acid Quantification negative 1 Sertraline Quantification negative ng/mL 1 ng/mL Tapentadol Quantification negative ng/mL 5 ng/mL Temazepam negative ng/mL 1 ng/mL THC (Marijuana Component) negative ng/mL 2 ng/mL Tramadol Quantification negative ng/mL 5 ng/mL Zolpidem Quantification negative 1 Embedded PDF Reviewed date:01/17/2023 15:25:29 Interpretation: Performing Lab:,ab Director: lAeta Sunshine MD, CLIA ID# [id number] Notes/Report: [facility] Reviewed date:01/17/2023 15:26:04 Interpretation: Performing Lab: Notes/Report: [facility] Reviewed date:06/28/2022 10:28:51 Interpretation: Performing Lab: Notes/Report: [facility] Reviewed date:11/17/2021 10:56:37 Interpretation: Performing Lab: Notes/Report: [facility] Reviewed date:04/07/2021 16:27:17 Interpretation: Performing Lab: Notes/Report: [facility] Reviewed date:04/21/2020 08:27:17 Interpretation: Performing Lab: Notes/Report: DRUG TOX MONITORING 1, W/CON F, ORAL FLUID Reviewed date:06/18/2019 07:05:06 Interpretation:Consistent Performing Lab:, [facility], [facility] [address], [id number] Jag Rodriguez M.D.,PhD Notes/Report: Amphetamines NEGATIVE ng/mL <10 ng/mL Barbiturates NEGATIVE ng/mL <10 ng/mL Benzodiazepines NEGATIVE ng/mL <0.50 ng/mL Buprenorphine NEGATIVE ng/mL <0.10 ng/mL Cocaine NEGATIVE ng/mL <5.0 ng/mL Fentanyl NEGATIVE ng/mL <0.10 ng/mL Heroin Metabolite NEGATIVE ng/mL <1.0 ng/mL Marijuana NEGATIVE ng/mL <2.5 ng/mL MDMA NEGATIVE ng/mL <10 ng/mL Meprobamate NEGATIVE ng/mL <2.5 ng/mL Methadone NEGATIVE ng/mL <5.0 ng/mL Nicotine Metabolite NEGATIVE ng/mL <5.0 ng/mL Opiates NEGATIVE ng/mL <2.5 ng/mL Phencyclidine NEGATIVE ng/mL <10 ng/mL Tapentadol NEGATIVE ng/mL <5.0 ng/mL Tramadol NEGATIVE ng/mL <5.0 ng/mL Zolpidem NEGATIVE ng/mL <5.0 ng/mL REASON FOR VISIT No Information MEDICAL (GENERAL) HISTORY Type Description Date Medical History Type 2 diabetes casey itus with diabetic neuropathy, unspecified Medical History Pain in both feet Medical History Paralysis of sciatic nerve (as per prior medical redords review) Medical History Arteriosclerotic heart disease Medical History 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, sickle cell (history of dialysis) Medical History PTSD Medical History Tinnitus Medical History Anemia Medical History Anxiety and major depressive dis order Medical History Chronic kidney disease, dialysis Medical History Duodenal ulcer Medical History Gout Medical History Hyperlipidemia Medical History Hypopotassemia Medical History Lymphedema Medical History Peripheral vascular disorder Medical History Unspecified atrial fibrillation Medical History Venous insufficiency Medical History Left knee pain Medical History Hypertension Medical History CAD, history of hear t attack and multiple stent placements Medical History Fractured left humerus 10/15/19 Medical History Pneumonia 10/2020 Medical History Dysrhythmia, history of pacemake r placement Medical History Obstructive sleep apnea Medical History Obesity, moderate Surgical History Placement of stent i n heart, performed at [facility] by Dr. Cohen, 04/2013 Surgical History Placement of dialysi s graft, performed at [facility] in [place], [place], 01/2016 Surgical History Pacemaker insertion, performed at [facility] by Dr. Schwab, 02/2019 Surgical History Placement of periton eal catheter (dialysis), performed at [facility] in [place], [place], 06/2020 Surgical History Removal of peritoneal catheter, performed at [facility], 02/2021 Surgical History Angiogram, performed at [facility], Surgical History Balloon angioplasty with placement of 5 stents, performed at [facility], 08/2021 Surgical History Cleaning out of fistula, Hospitalization History Low oxygen, treated [facility], 07/2021 Hospitalization History Shortness of jerardo ath, treated at [facility] in [place], [place], 12/2021 Hospitalization History COVID-19 and heart attac k, treated at [facility], 04/2022 MENTAL STATUS No Information ASSESSMENTS Encounter Date Diagnosis Assessment Notes Treatment Notes Treatment Clinical Notes January, Obstructive sleep apnea (adult) (pediatric) (ICD-10 - G47.33) Continue use of CPAP device. Patient with history of benefit from the device. Patient has reported strict compliance with use of the device as of: 01/13/23 (new device provided by the [facility]). Patient has been counseled on the risk of sleep apnea, with or without opioid and / or other sedative usage, and the patient verbalized understanding and acceptance of the increased risk (worsened sleep apnea, respiratory depression, ) with opioid and / or sedative substance usage January, Type 2 diabetes mellitus with diabetic polyneuropathy (ICD-10 - E11.42) Chronic diabetic neuropathic pain. Prior conservative treatment by patient as noted, below. Patient has reported his radiographer technologist recommended against upward gabapentin titration. Oral opioid medication use with history of benefit for patient's neuropathic pain. Plan to continue medication management January, group home (current) use of opiate analgesic (ICD-10 - Z79.891) Patient has a total daily MED of 11.25. This places the patient in the [facility] low risk category for total daily opioid usage (not to be confused with the searate potential significant risk in regards to diagnosed sleep apnea, above). Patient has received the Opioid Analgesic [facility] Patient Counseling Guide. Patient has had opportunity to read the Guide and ask questions pertaining to the Guide. Patient has been advised on 08/12/20 that due to the Federal Government concerns and actions, any suspected patient misuse, abuse, or diversion of controlled substances (i.e. opioids/narcotics/p ain killers) WILL result in dissolution of treatment from this clinic. Patients adhering to the concepts contained within the patient's Treatment Agreement will be protected from such termination of care. Patient was given a copy of the Treatment Agreement, signed by patient on 12/19/19. Patient signed an opioid consent form on 12/19/19. Patient has refused offer of a Narcan nasal spray prescription. Oral Fluid Tox screen today January, Other Due to the [facility] inability to store more than 1 month of opioid prescriptions at a time, remaining eRx(s) will be sent in 30 and 60 days, as indicated Oct, Obstructive sleep apnea (adult) (pediatric) (ICD-10 - G47.33) Continue use of CPAP device. Patient with history of benefit from the device. Patient has reported strict compliance with use of the device as of: 10/14/22 (new device provided by the NH). Patient has been counseled on the risk of sleep apnea, with or without opioid and / or other sedative usage, and the patient verbalized understanding and acceptance of the increased risk (worsened sleep apnea, respiratory depression, ) with opioid and / or sedative substance usage Oct, Type 2 diabetes mellitus with diabetic polyneuropathy (ICD-10 - E11.42) Chronic diabetic neuropathic pain. Prior conservative treatment by patient as noted, below. Patient has reported his radiographer technologist recommended against upward gabapentin titration. Oral opioid medication use with history of benefit for patient's neuropathic pain. Plan to continue medication management Oct, intermediate card tender (current) use of opiate analgesic (ICD-10 - Z79.891) Patient has a total daily MED of 11.25. This places the patient in the [facility] low risk category for total daily opioid usage (not to be confused with the searate potential significant risk in regards to diagnosed sleep apnea, above). Patient has received the Opioid Analgesic [facility] Patient Counseling Guide. Patient has had opportunity to read the Guide and ask questions pertaining to the Guide. Patient has been advised on 08/12/20 that due to the Federal Government concerns and actions, any suspected patient misuse, abuse, or diversion of controlled substances (i.e. opioids/narcotics/p ain killers) WILL result in dissolution of treatment from this clinic. Patients adhering to the concepts contained within the patient's Treatment Agreement will be protected from such termination of care. Patient was given a copy of the Treatment Agreement, signed by patient on 12/19/19. Patient signed an opioid consent form on 12/19/19. Patient has refused offer of a Narcan nasal spray prescription Oct, Other Due to the [facility] inability to store more than 1 month of opioid prescriptions at a time, remaining eRxs x 2 will be sent in 30 and 60 days, as indicated Jun, Obstructive sleep apnea (adult) (pediatric) (ICD-10 - G47.33) Continue use of CPAP device. Patient with history of benefit from the device. Patient has reported strict compliance with use of the device as of: 03/31/21 (waiting for recalled device to be replaced by the [facility] as of 06/22/22 visit). Patient has been counseled on the risks of sleep apnea, with or without opioid and / or other sedative usage, and the patient verbalized understanding and acceptance of the increased risk (worsened sleep apnea, respiratory depression, ) with opioid and / or sedative substance usage Jun, Type 2 diabetes mellitus with diabetic polyneuropathy (ICD-10 - E11.42) Patient has reported his radiographer technologist recommended against upward gabapentin titration. Patient has also reported efficacy of opioids in regards to his neuropathic pain. Plan to continue opioid medication management Jun, intermediate card tender (current) use of opiate analgesic (ICD-10 - Z79.891) Patient has a total daily MED of 11.25. This places the patient in the [facility] low risk category for total daily opioid usage (not to be confused with the searate potential significant risk in regards to diagnosed sleep apnea, above). Patient has received the Opioid Analgesic [facility] Patient Counseling Guide. Patient has had opportunity to read the Guide and ask questions pertaining to the Guide. Patient has been advised on 08/12/20 that due to the Federal Government concerns and actions, any suspected patient misuse, abuse, or diversion of controlled substances (i.e. opioids/narcotics/p ain killers) WILL result in dissolution of treatment from this clinic. Patients adhering to the concepts contained within the patient's Treatment Agreement will be protected from such termination of care. Patient was given a copy of the Treatment Agreement, signed by patient on 12/19/19. Patient signed an opioid consent form on 12/19/19. Patient has refused offer of a Narcan nasal spray prescription. Oral Fluid Tox screen today Feb, Obstructive sleep apnea (adult) (pediatric) (ICD-10 - G47.33) Continue use of CPAP device. Patient with history of benefit from the device. Patient has reported strict compliance with use of the device as of: 03/31/21 ([facility] Patient has been counseled on the risks of sleep apnea, with or without opioid and / or other sedative usage, and the patient verbalized understanding and acceptance of the increased risk (worsened sleep apnea, respiratory depression, ) with opioid and / or sedative substance usage Feb, Type 2 diabetes mellitus with diabetic polyneuropathy (ICD-10 - E11.42) Patient has reported his radiographer technologist recommended against upward gabapentin titration. Patient has also reported efficacy of opioids in regards to his neuropathic pain Feb, intermediate card tender (current) use of opiate analgesic (ICD-10 - Z79.891) Patient has a total daily MED of 11.25. This places the patient in the [facility] low risk category for total daily opioid usage (not to be confused with the searate potential significant risk in regards to diagnosed sleep apnea, above). Patient has received the [facility] Patient Counseling Guide. Patient has had opportunity to read the Guide and ask questions pertaining to the Guide. Patient has been advised on 08/12/20 that due to the Federal Government concerns and actions, any suspected patient misuse, abuse, or diversion of controlled substances (i.e. opioids/narcotics/p ain killers) WILL result in dissolution of treatment from this clinic. Patients adhering to the concepts contained within the patient's Treatment Agreement will be protected from such termination of care. Patient was given a copy of the Treatment Agreement, signed by patient on 12/19/19. Patient signed an opioid consent form on 12/19/19. Patient has refused offer of a Narcan nasal spray prescription Feb, Other Consider taper to quantity 30 per month Nov, Obstructive sleep apnea (adult) (pediatric) (ICD-10 - G47.33) Continue use of CPAP device. Patient with history of benefit from the device. Patient has reported strict compliance with use of the device as of: 03/31/21 ([facility]12[facility] visit). Patient has been counseled on the risks of sleep apnea, with or without opioid and / or other sedative usage, and the patient verbalized understanding and acceptance of the increased risk (worsened sleep apnea, respiratory depression, ) with opioid and / or sedative substance usage Nov, Type 2 diabetes mellitus with diabetic polyneuropathy (ICD-10 - E11.42) Patient has reported his radiographer technologist recommended against upward gabapentin titration. Patient has also reported efficacy of opioids in regards to his neuropathic pain Nov, group home (current) use of opiate analgesic (ICD-10 - Z79.891) Patient has a total daily MED of 11.25. This places the patient in the [facility] low risk category for total daily opioid usage (not to be confused with the searate potential significant risk in regards to diagnosed sleep apnea, above). Patient has received the Opioid [facility]ges[facility] Patient Counseling Guide. Patient has had opportunity to read the Guide and ask questions pertaining to the Guide. Patient has been advised on 08/12/20 that due to the Federal Government concerns and actions, any suspected patient misuse, abuse, or diversion of controlled substances (i.e. opioids/narcotics/p ain killers) WILL result in dissolution of treatment from this clinic. Patients adhering to the concepts contained within the patient's Treatment Agreement will be protected from such termination of care. Patient was given a copy of the Treatment Agreement, signed by patient on 12/19/19. Patient signed an opioid consent form on 12/19/19. Patient has refused offer of a Narcan nasal spray prescription. Oral Fluid Tox screen today Jul, Obstructive sleep apnea (adult) (pediatric) (ICD-10 - G47.33) Continue use of CPAP device. Patient with history of benefit from the device. Patient has reported strict compliance with use of the device as of: 03/31/21 ([facility] recalled [facility] visit). Patient has been counseled on the risks of sleep apnea, with or without opioid and / or other sedative usage, and the patient verbalized understanding and acceptance of the increased risk (worsened sleep apnea, respiratory depression, ) with opioid and / or sedative substance usage Jul, Type 2 diabetes mellitus with diabetic polyneuropathy (ICD-10 - E11.42) Patient has reported his radiographer technologist recommended against upward gabapentin titration. Patient has also reported efficacy of opioids in regards to his neuropathic pain Jul, group home (current) use of opiate analgesic (ICD-10 - Z79.891) Patient has a total daily MED of 11.25. This places the patient in the [facility] low risk category for total daily opioid usage (not to be confused with the searate potential significant risk in regards to diagnosed sleep apnea, above). Patient has received the Opioid [facility]ges[facility] Patient Counseling Guide. Patient has had opportunity to read the Guide and ask questions pertaining to the Guide. Patient has been advised on 08/12/20 that due to the [facility] Government concerns and actions, any suspected patient misuse, abuse, or diversion of controlled substances (i.e. opioids/narcotics/p ain killers) WILL result in dissolution of treatment from this clinic. Patients adhering to the concepts contained within the patient's Treatment Agreement will be protected from such termination of care. Patient was given a copy of the Treatment Agreement, signed by patient on 12/19/19. Patient signed an opioid consent form on 12/19/19. Patient has refused offer of a Narcan nasal spray prescription Jul, Other Patient reports an upcoming appointment for stent placement Mar, Obstructive sleep apnea (adult) (pediatric) (ICD-10 - G47.33) Continue use of CPAP device. Patient with history of benefit from the device. Patient has reported strict compliance with use of the device as of: 03/31/21. Patient has been counseled on the risks of sleep apnea, with or without opioid and / or other sedative usage, and the patient verbalized understanding and acceptance of the increased risk (worsened sleep apnea, respiratory depression, ) with opioid and / or sedative substance usage Mar, Type 2 diabetes mellitus with diabetic polyneuropathy (ICD-10 - E11.42) Patient has reported his radiographer technologist recommended against upward gabapentin titration. Patient has also reported efficacy of opioids in regards to his neuropathic pain Mar, intermediate card tender (current) use of opiate analgesic (ICD-10 - Z79.891) Patient has a total daily MED of 11.25. This places the patient in the [facility] low risk category for total daily opioid usage (not to be confused with the searate potential significant risk in regards to diagnosed sleep apnea, above). Patient has received the Opioid Analgesic [facility] Patient Counseling Guide. Patient has had opportunity to read the Guide and ask questions pertaining to the Guide. Patient has been advised on 08/12/20 that due to the [facility] Government concerns and actions, any suspected patient misuse, abuse, or diversion of controlled substances (i.e. opioids/narcotics/p ain killers) WILL result in dissolution of treatment from this clinic. Patients adhering to the concepts contained within the patient's Treatment Agreement will be protected from such termination of care. Patient was given a copy of the Treatment Agreement, signed by patient on 12/19/19. Patient signed an opioid consent form on 12/19/19. Patient has refused offer of a Narcan nasal spray prescription. Oral Fluid Tox screen today Mar, Other Consider taper to #30 tablets per month Nov, Obstructive sleep apnea (adult) (pediatric) (ICD-10 - G47.33) Continue use of CPAP device. Patient reports history of benefit from the device and strict device compliance as of: 12/02/20. Patient has been counseled on the risks of OSAS, with or without opioid and / or other sedative usage, and the patient verbalized understanding and acceptance of the increased risk (worsened sleep apnea, respiratory depression, ) with opioid and / or sedative substance usage Nov, Type 2 diabetes mellitus with diabetic polyneuropathy (ICD-10 - E11.42) Patient has reported his Line Maintenance Supervisor recommended against upward gabapentin titration. Patient has also reported efficacy of opioids in regards to his neuropathic pain Nov, intermediate card tender (current) use of opiate analgesic (ICD-10 - Z79.891) Patient has a total daily MED of 11.25. This places the patient in the [facility] low risk category for total daily opioid usage (not to be confused with the searate potential significant risk in regards to diagnosed sleep apnea, above). Patient has received the Opioid Analgesic [facility] Patient Counseling Guide. Patient has had opportunity to read the Guide and ask questions pertaining to the Guide. Patient has been advised on 08/12/20 that due to the [facility] Government concerns and actions, any suspected patient misuse, abuse, or diversion of controlled substances (i.e. opioids/narcotics/p ain killers) WILL result in dissolution of treatment from this clinic. Patients adhering to the concepts contained within the patient's Treatment Agreement will be protected from such termination of care. Patient was given a copy of the Treatment Agreement, signed by patient on 12/19/19. Patient signed an opioid consent form on 12/19/19. Patient has refused offer of a Narcan nasal spray prescription Aug, Type 2 diabetes mellitus with diabetic polyneuropathy (ICD-10 - E11.42) Patient has reported his Line Maintenance Supervisor recommended against upward gabapentin titration. Patient has also reported efficacy of opioids in regards to his neuropathic pain Aug, Obstructive sleep apnea (adult) (pediatric) (ICD-10 - G47.33) Continue use of CPAP device. Patient reports history of benefit and strict compliance with device as of: 08/12/20. Patient has been counseled on the risks of OSAS, with or without opioid and / or other sedative usage, and the patient verbalized understanding and acceptance of the increased risk (worsened sleep apnea, respiratory depression, ) with opioid and / or sedative substance usage Aug, group home (current) use of opiate analgesic (ICD-10 - Z79.891) Patient has a total daily MED of 11.25. This places the patient in the [facility] low risk category for total daily opioid usage (not to be confused with the searate and potential significant risk in regards to sleep apnea, above). Patient has received the Opioid Analgesic [facility] Patient Counseling Guide. Patient has had opportunity to read the Guide and ask questions pertaining to the Guide. Patient has been advised on 08/12/20 that due to the Federal Government concerns and actions, any suspected patient misuse, abuse, or diversion of controlled substances (i.e. opioids/narcotics/p ain killers) WILL result in dissolution of treatment from this clinic. Patients adhering to the concepts contained within the patient's Treatment Agreement will be protected from such termination of care. Patient was given a copy of the Treatment Agreement, signed by patient on 12/19/19. Patient signed an opioid consent form on 12/19/19. Patient has refused offer of a Narcan nasal spray prescription Apr, Type 2 diabetes mellitus with diabetic polyneuropathy (ICD-10 - E11.42) Patient has reported his Line Maintenance Supervisor recommended against upward gabapentin titration. Patient has also reported efficacy of opioids in regards to his neuropathic pain Apr, Obstructive sleep apnea (adult) (pediatric) (ICD-10 - G47.33) Continue use of CPAP device. Patient reports history of benefit and strict compliance with device as of: 04/15/20. Patient has been counseled on the risks of OSAS, with or without opioid and / or other sedative useage, and the patient verbalized understanding and acceptance of the increased risk (worsened sleep apnea, respiratory depression, ) with opioid and / or sedative substance useage Apr, group home (current) use of opiate analgesic (ICD-10 - Z79.891) Patient has received the Opioid Analgesic [facility] Patient Counseling Guide. Patient has had opportunity to read the Guide and ask questions pertaining to the Guide. Patient has refused offer of a Narcan nasal spray prescription. Oral fluid tox screen today; random screens per protocol Dec, Type 2 diabetes mellitus with diabetic polyneuropathy (ICD-10 - E11.42) Patient has reported his Line Maintenance Supervisor recommended against upward gabapentin titration. Patient has also reported efficacy of opioids in regards to his neuropathic pain Dec, Obstructive sleep apnea (adult) (pediatric) (ICD-10 - G47.33) Continue use of CPAP device. Patient reports history of benefit and strict compliance with device as of: 12/19/19. Patient has been counseled on the risks of OSAS, with or without opioid and / or other sedative useage, and the patient verbalized understanding and acceptance of the increased risk (worsened sleep apnea, respiratory depression, ) with opioid and / or sedative substance useage Dec, intermediate card tender (current) use of opiate analgesic (ICD-10 - Z79.891) Patient has received the Opioid Analgesic [facility] Patient Counseling Guide. Patient has had opportunity to read the Guide and ask questions pertaining to the Guide. Patient has refused offer of a Narcan nasal spray prescription Sep, Type 2 diabetes mellitus with diabetic polyneuropathy (ICD-10 - E11.42) Patient has reported his Line Maintenance Supervisor recommended against upward gabapentin titration. Patient has also reported efficacy of opioids in regards to his neuropathic pain Sep, Obstructive sleep apnea (adult) (pediatric) (ICD-10 - G47.33) Continue use of CPAP device. Patient reports history of benefit and strict compliance with device as of: 09/25/19. Patient has been counseled on the risks of OSAS, with or without opioid and / or other sedative useage, and the patient verbalized understanding and acceptance of the increased risk (worsened sleep apnea, respiratory depression, ) with opioid and / or sedative substance useage Sep, intermediate card tender (current) use of opiate analgesic (ICD-10 - Z79.891) Patient has received the Opioid Analgesic [facility] Patient Counseling Guide. Patient has had opportunity to read the Guide and ask questions pertaining to the Guide Jul, Type 2 diabetes mellitus with diabetic polyneuropathy (ICD-10 - E11.42) Patient has reported his Line Maintenance Supervisor recommended against upward gabapentin titration. Patient has also reported efficacy of opioids in regards to his neuropathic pain Jul, Obstructive sleep apnea (adult) (pediatric) (ICD-10 - G47.33) Continue use of CPAP device. Patient reports history of benefit and strict compliance with device as of: 07/25/19. Patient has been counseled on the risks of OSAS, with or without opioid and / or other sedative useage, and the patient verbalized understanding and acceptance of the increased risk (worsened sleep apnea, respiratory depression, ) with opioid and / or sedative substance useage Jun, Type 2 diabetes mellitus with diabetic polyneuropathy (ICD-10 - E11.42) Patient reports his Line Maintenance Supervisor recommends against upward gabapentin titration Jun, Obstructive sleep apnea (adult) (pediatric) (ICD-10 - G47.33) Continue use of CPAP device. Patient reports history of benefit and strict compliance with device as of: 07/04/19. Patient has been counseled on the risks of OSAS, with or without opioid and / or other sedative useage, and the patient verbalized understanding and acceptance of the increased risk (worsened sleep apnea, respiratory depression, ) with opioid and / or sedative substance useage May, Type 2 diabetes mellitus with diabetic polyneuropathy (ICD-10 - E11.42) Patient reports beginning gabapentin at 100 mg daily with slow titration up to 300 mg TID (last adjustment was 05/24/19). Recommend continued titration up to 300 mg QID May, Other [facility] (current) drug therapy (ICD-10 - Z79.899) May, Obstructive sleep apnea (adult) (pediatric) (ICD-10 - G47.33) Continue use of CPAP device. Patient reports strict compliance as of 06/11/19 visit May, Other [facility] (current) drug therapy (ICD-10 - Z79.899) Oral fluid tox screen today 06/11/2019 May, Other Continue above medication(s) as currently prescribed by PCP. Case reviewed with Dr. Mccoy. Treatment plan approved PLAN OF TREATMENT Medication Medication Name Sig Start Date Stop Date acetaminophen-oxycodone 325 mg-5 mg 1/2 - 1 tab po orally Q4-6H prn pain (max 1 1/2 per day) for 30 day(s) Feb, Treatment Notes Assessment Notes Clinical Notes Type 2 diabetes mellitus wit h diabetic polyneuropathy Patient reports his Line Maintenance Supervisor recommends against upward gabapentin titration group home (current) use of o piate analgesic Patient has a total daily MED of 11.25. This places the patient in the [facility] low risk category for total daily opioid usage (not to be confused with the searate potential significant risk in regards to diagnosed sleep apnea, above). Patient has received the Opioid Analgesic [facility] Patient Counseling Guide. Patient has had opportunity to read the Guide and ask questions pertaining to the Guide. Patient has been advised on 08/12/20 that due to the Federal Government concerns and actions, any suspected patient misuse, abuse, or diversion of controlled substances (i.e. opioids/narcotics/pain killers) WILL result in dissolution of treatment from this clinic. Patients adhering to the concepts contained within the patient's Treatment Agreement will be protected from such termination of care. Patient was given a copy of the Treatment Agreement, signed by patient on 12/19/19. Patient signed an opioid consent form on 12/19/19. Patient has refused offer of a Narcan nasal spray prescription. Oral Fluid Tox screen today Type 2 diabetes mellitus wit h diabetic polyneuropathy Patient has reported his radiographer technologist recommended against upward gabapentin titration. Patient has also reported efficacy of opioids in regards to his neuropathic pain group home (current) use of o piate analgesic Patient has a total daily MED of 11.25. This places the patient in the [facility] low risk category for total daily opioid usage (not to be confused with the searate potential significant risk in regards to diagnosed sleep apnea, above). Patient has received the Opioid Analgesic [facility] Patient Counseling Guide. Patient has had opportunity to read the Guide and ask questions pertaining to the Guide. Patient has been advised on 08/12/20 that due to the [facility] Government concerns and actions, any suspected patient misuse, abuse, or diversion of controlled substances (i.e. opioids/narcotics/pain killers) WILL result in dissolution of treatment from this clinic. Patients adhering to the concepts contained within the patient's Treatment Agreement will be protected from such termination of care. Patient was given a copy of the Treatment Agreement, signed by patient on 12/19/19. Patient signed an opioid consent form on 12/19/19. Patient has refused offer of a Narcan nasal spray prescription Type 2 diabetes mellitus wit h diabetic polyneuropathy Patient has reported his Line Maintenance Supervisor recommended against upward gabapentin titration. Patient has also reported efficacy of opioids in regards to his neuropathic pain group home (current) use of o piate analgesic Patient has a total daily MED of 11.25. This places the patient in the [facility] low risk category for total daily opioid usage (not to be confused with the searate potential significant risk in regards to diagnosed sleep apnea, above). Patient has received the Opioid Analgesic [facility] Patient Counseling Guide. Patient has had opportunity to read the Guide and ask questions pertaining to the Guide. Patient has been advised on 08/12/20 that due to the [facility] [employer] concerns and actions, any suspected patient misuse, abuse, or diversion of controlled substances (i.e. opioids/narcotics/pain killers) WILL result in dissolution of treatment from this clinic. Patients adhering to the concepts contained within the patient's Treatment Agreement will be protected from such termination of care. Patient was given a copy of the Treatment Agreement, signed by patient on 12/19/19. Patient signed an opioid consent form on 12/19/19. Patient has refused offer of a Narcan nasal spray prescription. Oral Fluid Tox screen today Obstructive sleep apnea (ariadna lt) (pediatric) Continue use of CPAP device. Patient reports history of benefit from the device and strict device compliance as of: 12/02/20. Patient has been counseled on the risks of OSAS, with or without opioid and / or other sedative usage, and the patient verbalized understanding and acceptance of the increased risk (worsened sleep apnea, respiratory depression, ) with opioid and / or sedative substance usage intermediate card tender (current) use of o piate analgesic Patient has a total daily MED of 11.25. This places the patient in the [facility] low risk category for total daily opioid usage (not to be confused with the [facility] potential significant risk in regards to diagnosed sleep apnea, above). Patient has received the Opioid Analgesic [facility] Patient Counseling Guide. Patient has had opportunity to read the Guide and ask questions pertaining to the Guide. Patient has been advised on 08/12/20 that due to the [facility] Government concerns and actions, any suspected patient misuse, abuse, or diversion of controlled substances (i.e. opioids/narcotics/pain killers) WILL result in dissolution of treatment from this clinic. Patients adhering to the concepts contained within the patient's Treatment Agreement will be protected from such termination of care. Patient was given a copy of the Treatment Agreement, signed by patient on 12/19/19. Patient signed an opioid consent form on 12/19/19. Patient has refused offer of a Narcan nasal spray prescription Type 2 diabetes mellitus wit h diabetic polyneuropathy Patient has reported his radiographer technologist recommended against upward gabapentin titration. Patient has also reported efficacy of opioids in regards to his neuropathic pain intermediate card tender (current) use of o piate analgesic Patient has received the Opioid Analgesic [facility] Patient Counseling Guide. Patient has had opportunity to read the Guide and ask questions pertaining to the Guide. Patient has refused offer of a Narcan nasal spray prescription Obstructive sleep apnea (ariadna lt) (pediatric) Continue use of CPAP device. Patient with history of benefit from the device. Patient has reported strict compliance with use of the device as of: 03/31/21 ([facility]12[facility] visit). Patient has been counseled on the risks of sleep apnea, with or without opioid and / or other sedative usage, and the patient verbalized understanding and acceptance of the increased risk (worsened sleep apnea, respiratory depression, ) with opioid and / or sedative substance usage group home (current) use of o piate analgesic Patient has received the Opioid Analgesic [facility] Patient Counseling Guide. Patient has had opportunity to read the Guide and ask questions pertaining to the Guide Type 2 diabetes mellitus wit h diabetic polyneuropathy Patient has reported his Line Maintenance Supervisor recommended against upward gabapentin titration. Patient has also reported efficacy of opioids in regards to his neuropathic pain Type 2 diabetes mellitus wit h diabetic polyneuropathy Patient has reported his Line Maintenance Supervisor recommended against upward gabapentin titration. Patient has also reported efficacy of opioids in regards to his neuropathic pain Obstructive sleep apnea (ariadna lt) (pediatric) Continue use of CPAP device. Patient reports history of benefit and strict compliance with device as of: 07/04/19. Patient has been counseled on the risks of OSAS, with or without opioid and / or other sedative useage, and the patient verbalized understanding and acceptance of the increased risk (worsened sleep apnea, respiratory depression, ) with opioid and / or sedative substance useage intermediate card tender (current) use of o piate analgesic Patient has a total daily MED of 11.25. This places the patient in the [facility] low risk category for total daily opioid usage (not to be confused with the searate potential significant risk in regards to diagnosed sleep apnea, above). Patient has received the Opioid Analgesic [facility] Patient Counseling Guide. Patient has had opportunity to read the Guide and ask questions pertaining to the Guide. Patient has been advised on 08/12/20 that due to the [facility] Government concerns and actions, any suspected patient misuse, abuse, or diversion of controlled substances (i.e. opioids/narcotics/pain killers) WILL result in dissolution of treatment from this clinic. Patients adhering to the concepts contained within the patient's Treatment Agreement will be protected from such termination of care. Patient was given a copy of the Treatment Agreement, signed by patient on 12/19/19. Patient signed an opioid consent form on 12/19/19. Patient has refused offer of a Narcan nasal spray prescription. Oral Fluid Tox screen today Obstructive sleep apnea (ariadna lt) (pediatric) Continue use of CPAP device. Patient with history of benefit from the device. Patient has reported strict compliance with use of the device as of: 03/31/21. Patient has been counseled on the risks of sleep apnea, with or without opioid and / or other sedative usage, and the patient verbalized understanding and acceptance of the increased risk (worsened sleep apnea, respiratory depression, ) with opioid and / or sedative substance usage Obstructive sleep apnea (ariadna lt) (pediatric) Continue use of CPAP device. Patient reports history of benefit and strict compliance with device as of: 07/25/19. Patient has been counseled on the risks of OSAS, with or without opioid and / or other sedative useage, and the patient verbalized understanding and acceptance of the increased risk (worsened sleep apnea, respiratory depression, ) with opioid and / or sedative substance useage Type 2 diabetes mellitus wit h diabetic polyneuropathy Patient has reported his Line Maintenance Supervisor recommended against upward gabapentin titration. Patient has also reported efficacy of opioids in regards to his neuropathic pain group home (current) use of o piate analgesic Patient has a total daily MED of 11.25. This places the patient in the [facility] low risk category for total daily opioid usage (not to be confused with the searate potential significant risk in regards to diagnosed sleep apnea, above). Patient has received the Opioid Analgesic [facility] Patient Counseling Guide. Patient has had opportunity to read the Guide and ask questions pertaining to the Guide. Patient has been advised on 08/12/20 that due to the Federal Government concerns and actions, any suspected patient misuse, abuse, or diversion of controlled substances (i.e. opioids/narcotics/pain killers) WILL result in dissolution of treatment from this clinic. Patients adhering to the concepts contained within the patient's Treatment Agreement will be protected from such termination of care. Patient was given a copy of the Treatment Agreement, signed by patient on 12/19/19. Patient signed an opioid consent form on 12/19/19. Patient has refused offer of a Narcan nasal spray prescription Obstructive sleep apnea (ariadna lt) (pediatric) Continue use of CPAP device. Patient reports strict compliance as of 06/11/19 visit Obstructive sleep apnea (ariadna lt) (pediatric) Continue use of CPAP device. Patient with history of benefit from the device. Patient has reported strict compliance with use of the device as of: 01/13/23 [facility] Patient has been counseled on the risk of sleep apnea, with or without opioid and / or other sedative usage, and the patient verbalized understanding and acceptance of the increased risk (worsened sleep apnea, respiratory depression, ) with opioid and / or sedative substance usage Obstructive sleep apnea (ariadna lt) (pediatric) Continue use of CPAP device. Patient reports history of benefit and strict compliance with device as of: 04/15/20. Patient has been counseled on the risks of OSAS, with or without opioid and / or other sedative useage, and the patient verbalized understanding and acceptance of the increased risk (worsened sleep apnea, respiratory depression, ) with opioid and / or sedative substance useage Type 2 diabetes mellitus wit h diabetic polyneuropathy Chronic diabetic neuropathic pain. Prior conservative treatment by patient as noted, below. Patient has reported his radiographer technologist recommended against upward gabapentin titration. Oral opioid medication use with history of benefit for patient's neuropathic pain. Plan to continue medication management Obstructive sleep apnea (ariadna lt) (pediatric) Continue use of CPAP device. Patient reports history of benefit and strict compliance with device as of: 08/12/20. Patient has been counseled on the risks of OSAS, with or without opioid and / or other sedative usage, and the patient verbalized understanding and acceptance of the increased risk (worsened sleep apnea, respiratory depression, ) with opioid and / or sedative substance usage Obstructive sleep apnea (ariadna lt) (pediatric) Continue use of CPAP device. Patient with history of benefit from the device. Patient has reported strict compliance with use of the device as of: 10/14/22 ([facility] Patient has been counseled on the risk of sleep apnea, with or without opioid and / or other sedative usage, and the patient verbalized understanding and acceptance of the increased risk (worsened sleep apnea, respiratory depression, ) with opioid and / or sedative substance usage Obstructive sleep apnea (ariadna lt) (pediatric) Continue use of CPAP device. Patient reports history of benefit and strict compliance with device as of: 12/19/19. Patient has been counseled on the risks of OSAS, with or without opioid and / or other sedative useage, and the patient verbalized understanding and acceptance of the increased risk (worsened sleep apnea, respiratory depression, ) with opioid and / or sedative substance useage Type 2 diabetes mellitus wit h diabetic polyneuropathy Chronic diabetic neuropathic pain. Prior conservative treatment by patient as noted, below. Patient has reported his radiographer technologist recommended against upward gabapentin titration. Oral opioid medication use with history of benefit for patient's neuropathic pain. Plan to continue medication management group home (current) use of o piate analgesic Patient has a total daily MED of 11.25. This places the patient in the [facility] low risk category for total daily opioid usage (not to be confused with the searate potential significant risk in regards to diagnosed sleep apnea, above). Patient has received the Opioid Analgesic [facility] Patient Counseling Guide. Patient has had opportunity to read the Guide and ask questions pertaining to the Guide. Patient has been advised on 08/12/20 that due to the Federal Government concerns and actions, any suspected patient misuse, abuse, or diversion of controlled substances (i.e. opioids/narcotics/pain killers) WILL result in dissolution of treatment from this clinic. Patients adhering to the concepts contained within the patient's Treatment Agreement will be protected from such termination of care. Patient was given a copy of the Treatment Agreement, signed by patient on 12/19/19. Patient signed an opioid consent form on 12/19/19. Patient has refused offer of a Narcan nasal spray prescription Obstructive sleep apnea (ariadna lt) (pediatric) Continue use of CPAP device. Patient with history of benefit from the device. Patient has reported strict compliance with use of the device as of: 03/31/21 ([facility]22 visit). Patient has been counseled on the risks of sleep apnea, with or without opioid and / or other sedative usage, and the patient verbalized understanding and acceptance of the increased risk (worsened sleep apnea, respiratory depression, ) with opioid and / or sedative substance usage intermediate card tender (current) use of o piate analgesic Patient has a total daily MED of 11.25. This places the patient in the [facility] low risk category for total daily opioid usage (not to be confused with the searate potential significant risk in regards to diagnosed sleep apnea, above). Patient has received the Opioid Analgesic [facility] Patient Counseling Guide. Patient has had opportunity to read the Guide and ask questions pertaining to the Guide. Patient has been advised on 08/12/20 that due to the [facility] Government concerns and actions, any suspected patient misuse, abuse, or diversion of controlled substances (i.e. opioids/narcotics/pain killers) WILL result in dissolution of treatment from this clinic. Patients adhering to the concepts contained within the patient's Treatment Agreement will be protected from such termination of care. Patient was given a copy of the Treatment Agreement, signed by patient on 12/19/19. Patient signed an opioid consent form on 12/19/19. Patient has refused offer of a Narcan nasal spray prescription. Oral Fluid Tox screen today Type 2 diabetes mellitus wit h diabetic polyneuropathy Patient has reported his radiographer technologist recommended against upward gabapentin titration. Patient has also reported efficacy of opioids in regards to his neuropathic pain. Plan to continue opioid medication management Obstructive sleep apnea (ariadna lt) (pediatric) Continue use of CPAP device. Patient with history of benefit from the device. Patient has reported strict compliance with use of the device as of: 03/31/21 ([facility]22 visit). Patient has been counseled on the risks of sleep apnea, with or without opioid and / or other sedative usage, and the patient verbalized understanding and acceptance of the increased risk (worsened sleep apnea, respiratory depression, ) with opioid and / or sedative substance usage Obstructive sleep apnea (ariadna lt) (pediatric) Continue use of CPAP device. Patient reports history of benefit and strict compliance with device as of: 09/25/19. Patient has been counseled on the risks of OSAS, with or without opioid and / or other sedative useage, and the patient verbalized understanding and acceptance of the increased risk (worsened sleep apnea, respiratory depression, ) with opioid and / or sedative substance useage group home (current) use of o piate analgesic Patient has received the Opioid Analgesic [facility] Patient Counseling Guide. Patient has had opportunity to read the Guide and ask questions pertaining to the Guide. Patient has refused offer of a Narcan nasal spray prescription. Oral fluid tox screen today; random screens per protocol Type 2 diabetes mellitus wit h diabetic polyneuropathy Patient has reported his Line Maintenance Supervisor recommended against upward gabapentin titration. Patient has also reported efficacy of opioids in regards to his neuropathic pain Other [facility] (current) dr leandro johnson Oral fluid tox screen today 06/11/2019 group home (current) use of o piate analgesic Patient has a total daily MED of 11.25. This places the patient in the [facility] low risk category for total daily opioid usage (not to be confused with the searate and potential significant risk in regards to sleep apnea, above). Patient has received the Opioid Analgesic [facility]S Patient Counseling Guide. Patient has had opportunity to read the Guide and ask questions pertaining to the Guide. Patient has been advised on 08/12/20 that due to the Federal Government concerns and actions, any suspected patient misuse, abuse, or diversion of controlled substances (i.e. opioids/narcotics/pain killers) WILL result in dissolution of treatment from this clinic. Patients adhering to the concepts contained within the patient's Treatment Agreement will be protected from such termination of care. Patient was given a copy of the Treatment Agreement, signed by patient on 12/19/19. Patient signed an opioid consent form on 12/19/19. Patient has refused offer of a Narcan nasal spray prescription Type 2 diabetes mellitus wit h diabetic polyneuropathy Patient reports beginning gabapentin at 100 mg daily with slow titration up to 300 mg TID (last adjustment was 05/24/19). Recommend continued titration up to 300 mg QID Type 2 diabetes mellitus wit h diabetic polyneuropathy Patient has reported his Line Maintenance Supervisor recommended against upward gabapentin titration. Patient has also reported efficacy of opioids in regards to his neuropathic pain Type 2 diabetes mellitus wit h diabetic polyneuropathy Patient has reported his radiographer technologist recommended against upward gabapentin titration. Patient has also reported efficacy of opioids in regards to his neuropathic pain Obstructive sleep apnea (ariadna lt) (pediatric) Continue use of CPAP device. Patient with history of benefit from the device. Patient has reported strict compliance with use of the device as of: 03/31/21 ([facility]04/21 visit). Patient has been counseled on the risks of sleep apnea, with or without opioid and / or other sedative usage, and the patient verbalized understanding and acceptance of the increased risk (worsened sleep apnea, respiratory depression, ) with opioid and / or sedative substance usage Type 2 diabetes mellitus wit h diabetic polyneuropathy Patient has reported his radiographer technologist recommended against upward gabapentin titration. Patient has also reported efficacy of opioids in regards to his neuropathic pain Referrals Referral Date Details Adria Mccoy, [address] [place], [place], [id number], [email or web address], Adria Mccoy, [address] [place], [place], [id number], [email or web address], Adria Mccoy, [address] [place], [place], [id number], , Adria Mccoy, [address] [place], [place], [id number], , Adria Mccoy, [address] [place], [place], [id number], , Adria Mccoy, [address] [place], [place], [id number], [email or web address], Next Appt Details Provider Name:Adria denton, 2023 10:52:00 AM[facility] [place] [place] [id number], Provider Name:Adria denton, 2023-04-21 09:30:00 AM, [facility] [place] [place], [id number], Insurance Providers Payer Name Payer Address Payer Phone Insured Name Patient Relationship to Insured Coverage Start Date Coverage End Date Subscriber Number Group Number [employer] [address] [facility] [id number] [address] Self - patient is the insured [id number]
[2023-03-08] MEDS: budesonide 0.5 mg/2 mL Neb INHALATION ×2 (08:31→21:06)
[2023-03-08] MEDS: ipratropium-albuterol 3 mL Neb INHALATION ×3 (08:31→21:06)
[2023-03-08] MEDS: carvedilol 3.125 mg Tablet PO ×2 (09:00→20:36)
[2023-03-08] MEDS: sevelamer 800 mg Tablet 2400 MG PO ×3 (09:00→17:24)
[2023-03-08] MEDS: spironolactone 25 mg Tablet 50 MG PO (09:00)
[2023-03-08] MEDS: apixaban 5 mg Tablet PO ×2 (09:00→20:36)
--- NOTE | 2023-03-08 09:00 | P.PN_ITS ---
Subjective Subjective: renal back pain is much improved this morning. Troponin was downtrending. 89- to 85. It appears a 2-hour troponin was not able to be drawn. Troponin trend in previous admissions in July and April has been between 80-1 20s. Medications: Reviewed: Yes Vitals/I&O/Wt Last Vital Signs Temp 97.8 F 03/08/23 15:23 Pulse 65 03/08/23 15:35 Resp 20 H 03/08/23 15:35 BP 123/69 03/08/23 15:23 Pulse Ox 97 03/08/23 15:35 O2 Del Method Nasal Cannula 03/08/23 15:35 O2 Flow Rate 4 03/08/23 15:35 03/08/23 03/08/23 03/08/23 06:59 14:59 22:59 Intake Total 200 / 920 840 / 840 Balance 200 / 920 840 / 840 Weight last 48 hrs Weight 119.748 kg Physical Exam Narrative: General: No acute distress, AO x3 HEENT: PERRLA, pupils bilaterally equal and reactive, pallors not present Chest: Normal vesicular breath sounds, no added sounds, equal good air entry bilaterally CVS: S1-S2 regular, no murmurs, no tachycardia, no gallops, no rubs Abdomen: Soft, nontender, no organomegaly, bowel sounds present Neuro: No focal deficits, no facial deformity, AO x3, power 5/5 in all limbs Data 03/08/23 04:32 03/08/23 04:32 A&P Assessment and plan (1) Acute and chronic respiratory failure with hypoxia: (2) End-stage renal disease (ESRD): (3) Diabetes mellitus: (4) Restrictive lung disease: (5) Shortness of breath: (6) Elevated troponin: (7) Hypervolemia: Plan Patient is a 77-year-old male with a significant past history of coronary artery disease, status post 5 stents placed in August 2021 in [place], currently presenting with worsening shortness of breath over several weeks, more acutely worsened over the last 2 days. Typically patient wears 4 L/min supplemental O2, with that same oxygen he noticed his sats to be down between 79 to 84% and presented to the emergency room. CXR without any acute changes- sequelae of past COVID noted with pleural thickening. He is additionally known to have a mixed obstructive restrictive ventilatory defect, however on examination he has no audible wheeze today. Unlikely that his reduced oxygenation is from an exacerbation in this regard. Patient has a last known ejection fraction of 30% with moderate global hypokinesia and findings consistent of systolic heart failure. Given his elevated BNP at 20,000, worsened oxygenation, suspect that acute on chronic systolic CHF exacerbation is contributing to his current symptoms. Did not diurese significantly after iv lasix on 03/07 Awaiting nephrology assessment for additional HD today Troponins are noted to be elevated at baseline 89 downtrending to 85 ; EKG is with paced rhythm Elevated troponins may be as a result of CKD versus demand supply mismatch from hypoxia. [facility] limited echocardiogram to assess for any drop in ejection fraction or new RWMA. Based on results of echo will discuss with his outpatient global regulatory lead re: stress test given worsening dyspnea Low probability PE given that patient is on anticoagulation with Eliquis at home. Continue his other home medications including Eliquis, Brilinta, Aldactone, carvedilol, atorvastatin, Lantus insulin and Renvela. Attestations Medical Necessity Statement*: awaiting echo, neprhoology assessment Coding Level of Care Code Acute Code for Chg Fwd Diagnoses Acute and chronic respiratory failure with hypoxia J96.21 End-stage renal disease (ESRD) N18.6 Diabetes mellitus E11.9 Restrictive lung disease J98.4 Shortness of breath R06.02 Elevated troponin R77.8 Hypervolemia E87.70
[2023-03-08] MEDS: pantoprazole DR 40 mg Tablet PO (09:01)
[2023-03-08] MEDS: gabapentin 300 mg Capsule PO ×2 (09:01→17:25)
[2023-03-08] MEDS: isosorbide mononitrate ER 30 mg Tablet 15 MG PO ×2 (09:01→17:25)
[2023-03-08] MEDS: allopurinol 100 mg Tablet PO (09:01)
[2023-03-08] MEDS: ticagrelor 90 mg Tablet PO ×2 (09:05→17:32)
--- NOTE | 2023-03-08 09:53 | PC.CHAP ---
Pastoral Care Encounter/Spiritual Assessment Type of Contact [] Declined grounds maintenance worker visit [] Patient/Family/Request visit [] Outpatient visit [] Follow-up visit [] Physician referral [] Code/Alert [x] Routine visit [] Staff referral [] Actively dying [] Patient sleeping [x] Family support [] [] Out of room [] Palliative care [] [] Receiving care in room [] Pre-surgical visit [] Trauma [] Long length of stay [] ICU visit [] Other: Relational/Emotional Strength [x] Patient feels connected with others/family/visitors/staff [] Distress [] Loneliness/isolation [] Abandonment Spirituality of Patient [x] Person of Sangita [] Attends Congregational of their Sangita [x] Believes in Prayer [] Reads Bible or Jainism materials [] There are Spiritual issues to be addressed Home Appliance Tech Interventions [x] Prayer [x] Active listening [] Non-anxious presence [x] Spiritual/emotional support [] Crisis/trauma care [] Spiritual counseling [] Bereavement support [] Provided bereavement packet [] Provided Bible/devotional materials [] Provided toy/stuffed animal, coloring book to patient or family member [] Provided Communion [] Anointing/[place] [] Salvation [x] Completed spiritual assessment [] Other: Impact on Illness or Injury [] Angry [] Fearful [] Anxious [] Often cries [] Exhaustion [] Unable to work [] Unable to attend cheondoism [] Unable to walk/stand [] Unable to read [] Unable to drive [] Unable to eat/drink [] Unable to sleep [] Unable to be with family [] Patient intubated [] Other: Summary Time spent with patient 5 min
--- NOTE | 2023-03-08 11:03 | PM.CONSULT ---
Providers/Reason For Consult Consulting Physician/Specialty*: [facility]/Nephrology Reason for Consult*: ESRD Attending Physician: Renetta Harvey MD Primary Care Provider: Adria Artis DO History of Present Illness History of Present Illness Shon Mullen is a 77 year old male h/o ESRD, HTN, CAD, CHF EF 38%, COPD,? MARAL and bipap dependent, DM, obesity.? pt underwent HD yesterday , CXR clear . pt admiited for COPD exacerbation . Review of Systems Narrative: other ros ENGATIVE Medications/Allergies Home Medications Medication Instructions Recorded Confirmed Last Taken Type atorvastatin 80 mg tablet 80 mg PO DAILY@1800 10/02/19 03/07/23 03/06/23 History epoetin beta, methoxy peg 30 60 mcg SUBCUT Q14D 11/07/19 03/07/23 07/03/21 History mcg/0.3 mL injection syringe (Mircera) gabapentin 300 mg capsule 300 mg PO BID@,11/07/19 03/07/23 03/06/23 History sevelamer carbonate 800 mg tablet 2,400 mg PO TID@,12,11/07/19 03/07/23 03/06/23 History (Renvela) famotidine 20 mg tablet (Pepcid) 20 mg PO BID@,18 04/16/20 03/07/23 03/06/23 History liraglutide (weight loss) 3 mg/0.5 3 mg SUBCUT DAILY PRN weight loss 04/16/20 03/07/23 03/06/23 History mL (18 mg/3 mL) subcut pen injector (Saxenda) docusate sodium 100 mg capsule 200 mg PO BID@09,18 09/17/20 03/07/23 03/06/23 History allopurinol 100 mg tablet 100 mg PO DAILY PRN Gout 11/11/20 03/07/23 01/31/21 History oxycodone-acetaminophen 5 mg-325 1 tab PO BEDTIME 11/11/20 03/07/23 03/06/23 History mg tablet polyethylene glycol 3350 17 17 g PO DAILY PRN Constipation 11/11/20 03/07/23 03/01/21 History gram/dose oral powder (Miralax) albuterol sulfate 90 mcg/actuation 2 puff inhalation Q6H PRN 01/02/21 03/07/23 02/23/21 Rx aerosol inhaler shortness of breath or wheezing 30 days #8.5 grams albuterol sulfate 2.5 mg/3 mL 2.5 mg inhalation Q6H PRN 07/13/21 03/07/23 Unknown History (0.083 %) solution for nebulization Shortness Of Breath cinacalcet 30 mg tablet 30 mg PO .THREE TIMES A WEEK 07/13/21 03/07/23 03/06/23 History gentamicin 0.1 % topical cream 1 applic topical TID PRN unknown 07/13/21 03/07/23 Unknown History insulin glargine 100 unit/mL 35 unit SUBCUT QAM 07/13/21 03/07/23 03/06/23 History subcutaneous solution (Lantus U-100 Insulin) lidocaine-prilocaine 2.5 %-2.5 % 1 applic topical TID PRN Pain 07/13/21 03/07/23 03/06/23 History topical cream tiotropium 2.5 mcg-olodaterol 2.5 2 puff inhalation QAM 07/13/21 03/07/23 03/06/23 History mcg/actuation mist for inhalation (Stiolto Respimat) isosorbide mononitrate 30 mg 15 mg PO BID #90 tabs 08/05/21 03/07/23 03/06/23 Rx tablet,extended release 24 hr cholecalciferol (vitamin D3) 50 50 mcg PO QAM 11/11/21 03/07/23 03/06/23 History mcg (2,000 unit) capsule cetirizine 10 mg tablet (Zyrtec) 10 mg PO DAILY@18 04/26/22 03/07/23 03/06/23 History doxercalciferol 1 mcg capsule 1 mcg PO .THREE TIMES A WEEK 04/26/22 03/07/23 03/07/23 History nitroglycerin 0.4 mg sublingual 0.4 mg sublingual Q5M PRN Chest 04/26/22 03/07/23 Unknown History tablet (Nitrostat) Pain omega-3 fatty acids 1,000 mg 1,000 mg PO BID@04/26/22 03/07/23 03/06/23 History capsule ondansetron HCl 8 mg tablet 4 mg PO Q6H PRN Nausea And Vomiting 04/26/22 03/07/23 03/06/23 History ticagrelor 90 mg tablet (Brilinta) 90 mg PO BID 04/26/22 03/07/23 03/06/23 History multivitamin 1 tab PO DAILY 06/07/22 03/07/23 03/06/23 History roflumilast 250 mcg tablet 500 mcg PO DAILY 06/18/22 03/07/23 03/06/23 History (Daliresp) spironolactone 50 mg tablet 50 mg PO DAILY@09 #90 tabs 06/18/22 03/07/23 03/06/23 Rx apixaban 5 mg tablet 5 mg PO BID #180 tabs 07/05/22 03/07/23 03/06/23 Rx carvedilol 6.25 mg tablet 9.375 mg PO DIRECTED #135 tabs 07/15/22 03/07/23 03/06/23 Rx furosemide 40 mg tablet 40 mg PO DAILY #90 tabs 09/18/22 03/07/23 03/06/23 Rx Diabetic Shoes with 3 Custom #1 ea 01/04/23 03/07/23 Unknown Rx Inserts diclofenac sodium 1 % topical gel 2 g topical QID #100 grams 01/04/23 03/07/23 03/06/23 Rx (Voltaren Arthritis Pain) vitamin B complex with vit C-folic 1 tab PO DAILY 03/07/23 03/07/23 03/06/23 History acid 800 mcg-zinc 12.5 mg tablet (RenaPlex) Allergies Allergy/AdvReac Type Severity Reaction Status Date / Time ciprofloxacin [From Cipro] Allergy rash Verified 03/07/23 12:32 felodipine Allergy rash Verified 03/07/23 12:32 sulfamethoxazole Allergy rash Verified 03/07/23 12:32 [From Septra] trimethoprim [From Septra] Allergy rash Verified 03/07/23 12:32 Current Medications Generic Name Dose Route Start Last Admin Trade Name Freq PRN Reason Stop Dose Admin Acetaminophen 650 mg 03/07/23 17:23 03/07/23 17:36 Acetaminophen 325 Mg Tablet PO 650 mg Q6H PRN Administration Mild/Mod Pain Or Temp >/= 101 Albuterol/Ipratropium 3 ml 03/07/23 20:00 03/08/23 08:31 Ipratropium-Albuterol 3 Ml Neb INHALATION 3 ml Q6H.RESP GEORGE Administration Allopurinol 100 mg 03/07/23 17:23 03/08/23 09:01 Allopurinol 100 Mg Tablet PO 100 mg DAILY PRN Administration Gout Apixaban 5 mg 03/07/23 21:00 03/08/23 09:00 Apixaban 5 Mg Tablet PO 5 mg BID@0900,2100 GEORGE Administration Atorvastatin Calcium 80 mg 03/07/23 18:00 03/07/23 17:36 Atorvastatin 40 Mg Tablet PO 80 mg DAILY@1800 GEORGE Administration Budesonide 0.5 mg 03/07/23 20:00 03/08/23 08:31 Budesonide 0.5 Mg/2 Ml Neb INHALATION 0.5 mg BID.RESPIRATORY GEORGE Administration Carvedilol 3.125 mg 03/07/23 21:00 03/08/23 09:00 Carvedilol 3.125 Mg Tablet PO 3.125 mg BID@0900,2100 GEORGE Administration Gabapentin 300 mg 03/07/23 18:00 03/08/23 09:01 Gabapentin 300 Mg Capsule PO 300 mg BID@18 GEORGE Administration Insulin Glargine 35 unit 03/08/23 06:00 03/08/23 06:15 Insulin Glargine 100 Units/1 Ml SUBCUT 35 unit QAM GEORGE Administration Isosorbide Mononitrate 15 mg 03/07/23 18:00 03/08/23 09:01 Isosorbide Mononitrate Er 30 Mg Tablet PO 15 mg BID GEORGE Administration Oxycodone/Acetaminophen 1 tab 03/07/23 21:00 03/07/23 20:16 Oxycodone-Apap 5-325 Mg Tablet PO 1 tab BEDTIME GEORGE Administration Pantoprazole Sodium 40 mg 03/08/23 09:00 03/08/23 09:[address] 40 Mg Tablet PO 40 mg DAILY GEORGE Administration Sevelamer Carbonate 2,400 mg 03/07/23 18:00 03/08/23 09:00 Sevelamer 800 Mg Tablet PO 2,400 mg TID@,18 GEORGE Administration Spironolactone 50 mg 03/08/23 09:00 03/08/23 09:00 Spironolactone 25 Mg Tablet PO 50 mg DAILY@09 GEORGE Administration Ticagrelor 90 mg 03/07/23 18:00 03/08/23 09:05 Ticagrelor 90 Mg Tablet PO 90 mg BID GEORGE Administration PFSH Acute PFSH: Medical History Accelerated essential hypertension Anemia Atrial fibrillation CAD (coronary artery disease) CHF (congestive heart failure) Chronic anticoagulation Diabetes mellitus ESRD (end stage renal disease) Heart failure Hypercholesteremia LV dysfunction Myocardial infarct Neuropathy NSTEMI (non-ST elevated myocardial infarction) MARAL (obstructive sleep apnea) Pacemaker Pneumonia Renal failure Respiratory failure with hypoxia Restrictive lung disease Small airways disease Surgical History Hemodialysis access, AV graft History of colonoscopy with polypectomy 2020 Peritoneal dialysis status (03/02/21) removed S/P cardiac pacemaker procedure S/P cataract surgery S/P dialysis catheter insertion S/P PTCA (percutaneous transluminal coronary angioplasty) Family History Mother Heart disease Social History Smoking and tobacco status: former smoker Quit status (tobacco): has quit using tobacco Year quit tobacco: 1984 Former quit date comment: 3PPD x 17 Years Second hand smoke exposure: No Smoking risk assessment/counseling performed?: No Alcohol intake: never Counseling given: No Substance/Drug Use: never Counseling given: No Lives independently: Yes Household members: spouse Housing: House Marital status: service: Yes Current occupational status: retired Pets and animals: No Do you think of yourself as: Straight/Heterosexual Current gender identity: Male Vitals/I&O/Wt Last Vital Signs Temp 98.6 F 03/08/23 07:38 Pulse 61 03/08/23 08:30 Resp 20 H 03/08/23 08:30 BP 135/75 03/08/23 07:38 Pulse Ox 96 03/08/23 08:30 O2 Del Method Nasal Cannula 03/08/23 08:30 O2 Flow Rate 4 03/08/23 08:30 03/07/23 03/08/23 03/08/23 22:59 06:59 14:59 Intake Total 720 / 720 200 / 920 360 / 360 Balance 720 / 720 200 / 920 360 / 360 Weight last 48 hrs Weight 119.748 kg Physical Exam Narrative: Awake , alert no distress S1S2 RRR per report Lungs clear per report Data 03/08/23 04:32 03/08/23 04:32 A&P Assessment and plan (1) End-stage renal disease (ESRD): Plan 1. ESRD, HD MWF, HD tomorrow 2. Acute on chronic resp failure , copd 5. Anemia, stable, iron replete, epogen at dialysis Consult Attestations Medical Necessity Statement: per medicine Coding Level of Care Code Acute Code for Chg Fwd Diagnoses End-stage renal disease (ESRD) N18.6
--- NOTE | 2023-03-08 15:44 | USCV_ITS ---
Shon Mullen Age: 77 Gender: M : 1945 Exam Date: 03/08/2023 18:35 Ordering Phys: Renetta Harvey MD Technologist: ASHVIN Exam Location: [facility] – [place] Indication: History of CHF, COPD, on dialysis, increased SOB, ascertain EF, new RWMA BP: 123 / 69 HR: 68 Rhythm: Atrial fibrillation Technical Quality: Adequate with [employer] MEASUREMENTS (Male / Female) Normal Values 2D ECHO LV Diastolic Diameter PLAX 5.5 cm 4.2 - 5.9 / 3.9 - 5.3 cm LV Systolic Diameter PLAX 4.6 cm IVS Diastolic Thickness 1.8 cm 0.6 - 1.0 / 0.6 - 0.9 cm IVS Systolic Thickness 2.0 cm LVPW Diastolic Thickness 2.1 cm 0.6 - 1.0 / 0.6 - 0.9 cm LVPW Systolic Thickness 2.7 cm LVOT Diameter 2.2 cm LV Ejection Fraction 2D Teich 32.8 % LV Ejection Fraction MOD 2C 49.1 % LV Ejection Fraction 2C AL 48.2 % LA Diameter 5.5 cm LA Width 5.4 cm LA Height 6.6 cm RA Width 5.3 cm RA Height 6.9 cm Aorta at Sinotubular Diameter 3.1 cm IVC Diameter 2.4 cm M-MODE Aortic Annulus Diameter 3.3 cm LA Ao Ratio MM 1.6 MV E Point Septal Separation 1.1 cm DOPPLER AV Peak Velocity 151.0 cm/s LVOT Peak Velocity 87.0 cm/s AV Area Cont Eq vti 2.2 cm squared AV Area Cont Eq pk 2.2 cm squared MV Peak Velocity 123.0 cm/s MV Area PHT 3.9 cm squared MV E' Velocity 55.5 cm/s Mitral E to MV E' Ratio 11.1 Mitral E to LV E' Lateral Ratio 9.0 Mitral E to LV E' Septal Ratio 14.4 TR Peak Velocity 291.7 cm/s TR Peak Gradient 34.0 mmHg TV Peak E Velocity 80.0 cm/s Right Atrial Pressure 10.0 mmHg Pulmonary Artery Systolic Pressu 44.0 mmHg PV Peak Velocity 115.0 cm/s RV Acceleration Time 0.1 s RV Ejection Time 0.3 s RV AcT/ET 0.2 FINDINGS Left Ventricle Diffuse hypokinesia of the septum, anteroseptum and the LV apex. LV ejection fraction around 48%. Right Ventricle The right ventricle is normal in size and function. Right Atrium The right atrium is normal in size. Left Atrium Mildly increased left atrial size. Mitral Valve Thickened mitral valve. Aortic Valve Thickened aortic valve. Tricuspid Valve Mild tricuspid valve regurgitation. Estimated pulmonary artery peak systolic pressure 44 mmHg Pulmonic Valve Pulmonic valve not well visualized. Pericardium Normal pericardium without effusion. Aorta Normal aortic annulus size. IVC Normal IVC dimension with >50% respiratory change of the inferior vena cava. CONCLUSIONS Diffuse hypokinesia of the septum, anteroseptum and the LV apex. LV ejection fraction around 48%. Mildly increased left atrial size. Minimally thickened aortic and mitral valves Mild tricuspid valve regurgitation. Estimated pulmonary artery peak systolic pressure 44 mmHg. There is no pericardial effusion. There are no intracardiac masses. Compared to the study from 08/23/2022, ejection fraction has improved from 35% to 42%. Dr Megan Schwab MD FAC (Electronically Signed) Final Date: 08 March 2023 22:14 S
--- NOTE | 2023-03-08 15:45 | XR_ITS ---
WS: [id number] Exam: XR thoracic spine 2V [id number] Date/Time of Exam: 03/08/2023 3:49 PM Reason For Exam: evaluate for fracture No obvious acute fracture or dislocation. Degenerative change and spondylosis. Degenerative disc narr owing at numerous levels. Paraspinal soft tissues are unremarkable. Osteopenia. XR/XR thoracic spine 2V [id number] IMPRESSION: 1. Moderately advanced degenerative change and osteopenia. Increased kyphosis. 2. No obvious fracture or malalignment.
[2023-03-08] MEDS: insulin lispro 100 unit/1 mL SUBCUT ×2 (17:25→20:36)
[2023-03-08] MEDS: atorvastatin 40 mg Tablet 80 MG PO (17:25)
[2023-03-08 20:32] LABS: Glucose Point of Care 156 mg/dL (70-110)
[2023-03-08 20:32] LABS: Glucose Point of Care 155 mg/dL (70-110)
[2023-03-08] MEDS: oxyCODONE-APAP 5-325 mg Tablet 1 TAB PO (20:35)
[2023-03-08] MEDS: LORazepam 0.5 mg Tablet PO (23:46)
[2023-03-09] VITALS (8 sets, daily range): BP systolic 114–149; BP diastolic 66–82; PULSE 59–62; RESP 18–19; TEMP 36.4–36.9; O2SAT 88–97
[2023-03-09] MEDS: perflutren protein-a microsphr 0.22 mg/mL SDV 3 mL IV (05:57)
--- NOTE | 2023-03-09 05:57 | PC.NURSE ---
was requested by Nurse Mary Valladares to take patient blood sugar before she administered his insulin.
[2023-03-09 05:59] LABS: Glucose Point of Care 172 mg/dL (70-110)
[2023-03-09] MEDS: insulin glargine 100 units/1 mL 35 UNIT SUBCUT (05:59)
[2023-03-09] MEDS: ipratropium-albuterol 3 mL Neb INHALATION ×2 (08:09→14:54)
[2023-03-09] MEDS: budesonide 0.5 mg/2 mL Neb INHALATION (08:09)
[2023-03-09] MEDS: pantoprazole DR 40 mg Tablet PO (08:21)
[2023-03-09] MEDS: apixaban 5 mg Tablet PO (08:21)
[2023-03-09] MEDS: sevelamer 800 mg Tablet 2400 MG PO (08:21)
[2023-03-09] MEDS: gabapentin 300 mg Capsule PO (08:21)
[2023-03-09] MEDS: allopurinol 100 mg Tablet PO (08:21)
[2023-03-09] MEDS: isosorbide mononitrate ER 30 mg Tablet 15 MG PO (08:21)
[2023-03-09] MEDS: carvedilol 3.125 mg Tablet PO (08:22)
[2023-03-09] MEDS: insulin lispro 100 unit/1 mL SUBCUT (08:22)
[2023-03-09] MEDS: spironolactone 25 mg Tablet 50 MG PO (08:22)
[2023-03-09] MEDS: ticagrelor 90 mg Tablet PO (08:24)
[2023-03-09] MEDS: heparin, porcine 1,000 unit/mL INJ 10 mL 1000 UNIT IV (12:07)
[2023-03-09] MEDS: heparin, porcine 1,000 unit/mL INJ 10 mL 10000 UNIT INTRACATH (12:07)
--- NOTE | 2023-03-09 12:14 | P.DS_ITS ---
Discharge Providers Date of Admission: 03/07/23 14:35 Date of Discharge: March 09, 2023 Attending Provider at Admission: Renetta Harvey MD Attending Provider at Discharge: Renetta Harvey MD Primary Care Provider: Adria Artis DO Diagnoses at Discharge Discharge Diagnosis (1) Acute and chronic respiratory failure with hypoxia: Status: Acute (2) End-stage renal disease (ESRD): Status: Acute (3) Diabetes mellitus: Status: Acute (4) Restrictive lung disease: Status: Acute (5) Shortness of breath: Status: Acute (6) Elevated troponin: Status: Acute (7) Hypervolemia: Status: Acute Reason for Visit Reason for Visit: SOB, abd pain Brief History: Shon Mullen is a 77 year old male with ESRD on HD MWF?CAD, restrictive lung disease presenting to the hospital with worsening dyspnea.? Patient states that he typically wears 4 L/min of supplemental O2 at home.? With this oxygen his oxygen numbers are usually at 90%.? Over the last 2 days he has noticed that with exertion his oxygen saturation is dropping down as low as 79 to 84%.? He went for dialysis today where they did remove fluid.? While coming back from dialysis he felt sick to his stomach and had nausea and vomiting.? Along with that he has also been experiencing upper back pain intermittently over the past week.? He is concerned that these may be atypical symptoms of an [place] similar to his previous presentations and came to the hospital. Patient last underwent coronary angiogram in April 2022 which had shown patent stents.? Prior to that he had intervention in August 2021 with placement of 5 stents at [place]. He denies any cough chest pain palpitations or syncope.? He states he has not recently gained any weight.? No recent fever.? No abdominal pain or diarrhea. Hospital Course Hospital Course Patient was admitted to the hospital for acute on chronic respiratory failure with hypoxia. Differentials for his worsening hypoxia included acute on chronic systolic heart failure exacerbation for which he received IV Lasix without any significant urine output and thereafter underwent dialysis today. His EKG did not show any acute ST-T wave changes. He was found to have elevated troponins with a trend of 89--> 85. EKG showed a paced rhythm. Reviewing trend from past troponins it appears his troponins have ranged between 80-1 20 previously in 2 022 as well. Echocardiogram was performed to assess for any new regional wall motion abnormalities or a drop in ejection fraction. His EF is noted to have improved from 30 to 35% to 45% currently. Above findings were discussed with his outpatient cryptographer, given a flat troponin trend, lack of chest pain and improved echocardiogram stress test was not indicated at this time. His back pain additionally improved with opiates. X-ray of his thoracic spine showed advanced degenerative changes and osteopenia with increased kyphosis. There was no obvious fracture or malalignment. Alternate differential for his worsening hypoxia would be worsening mixed obstructive restrictive ventilatory defect for which she follows with pulmonology. Patient has right-sided infiltrates on his chest x-ray, however these are chronic, thought to be a sequelae of prior COVID infections and prior pleural effusion. There were no signs of pneumonia. Patient was afebrile. Had no leukocytosis, no cough. He is being discharged today after dialysis and stable to improved condition. A new home O2 evaluation was obtained which showed that he is 4 L/min at rest, with exertion his O2 sat drops to 87%, we will need additional supplemental oxygen with exertion. He is instructed regarding the same. He has follow-up scheduled with pulmonology on March 16 and we will also arrange follow-up with cardiology upon discharge. Physical Exam Narrative: General: No acute distress, AO x3, no longer tachypneic. Breathing is much improved. HEENT: PERRLA, pupils bilaterally equal and reactive, pallors not present Chest: Normal vesicular breath sounds, no added sounds, equal good air entry bilaterally CVS: S1-S2 regular, no murmurs, no tachycardia, no gallops, no rubs Abdomen: Soft, nontender, no organomegaly, bowel sounds present Neuro: No focal deficits, no facial deformity, AO x3, power 5/5 in all limbs Extremities: No clubbing or edema Discharge Data Studies Completed and Pending Completed Studies During Hospitalization Category Date Time Status XR chest 1V portable [id number] Stat Exams 03/07/23 12:01 Completed XR thoracic spine 2V [id number] Routine Exams 03/08/23 15:45 Completed CV. echo wo/w contrast [id number] Routine Ultrasound 03/08/23 15:44 Completed Radiology Impressions Chest X-Ray 03/07/23 12:01 IMPRESSION: 1. Chronic pulmonary and pleural changes in the right lung base which may be secondary to previous Covid pneumonia. No acute process is suspected. 2. Mild cardiac enlargement unchanged. Thoracic Spine X-Ray 03/08/23 15:45 IMPRESSION: 1. Moderately advanced degenerative change and osteopenia. Increased kyphosis. 2. No obvious fracture or malalignment. Laboratory Results WBC 7.9 10^3/uL (4.0-10.0) 03/08/23 04:32 RBC 3.27 10^6/uL (4.1-5.3) L 03/08/23 04:32 Hgb 9.7 g/dL (11.7-16.6) L 03/08/23 04:32 Hct 31.7 % (42.0-52.0) L 03/08/23 04:32 MCV 96.9 fl (80-94) H 03/08/23 04:32 MCH 29.7 pg (28.0-34.0) 03/08/23 04:32 MCHC 30.6 g/dL (30.0-36.0) 03/08/23 04:32 RDW 17.9 % (12.1-15.1) H 03/08/23 04:32 Plt Count 213 10^3/cmm (130-400) 03/08/23 04:32 MPV 9.7 fL (7.4-10.4) 03/08/23 04:32 Neut % (Auto) 72.7 % 03/08/23 04:32 Lymph % (Auto) 13.8 % 03/08/23 04:32 Lagrange % (Auto) 11.3 % 03/08/23 04:32 Eos % (Auto) 1.1 % 03/08/23 04:32 Baso % (Auto) 0.6 % 03/08/23 04:32 Neut # (Auto) 5.74 10^3/uL (1.8-7.7) 03/08/23 04:32 Lymph # (Auto) 1.1 10^3/uL (0.8-4.8) 03/08/23 04:32 Lagrange # (Auto) 0.9 10^3/uL (0.2-0.9) 03/08/23 04:32 Eos # (Auto) 0.1 10^3/uL (0.0-0.8) 03/08/23 04:32 Baso # (Auto) 0.1 10^3/uL (0.0-0.1) 03/08/23 04:32 Nucleated RBC % (auto) 0 % 03/08/23 04:32 Nucleated RBCs # 0.0 /100WBC 03/08/23 04:32 PT 16.60 SECONDS (12.1-14.9) H 03/07/23 12:15 INR 1.29 (0.8-1.2) H 03/07/23 12:15 Sodium 138 mmol/L (136-145) 03/08/23 04:32 Potassium 4.5 mmol/L (3.5-5.1) 03/08/23 04:32 Chloride 96 mmol/L (98-107) L 03/08/23 04:32 Carbon Dioxide 29 mmol/L (22-29) 03/08/23 04:32 Anion Gap 17.5 (5-19) 03/08/23 04:32 BUN 27 mg/dL (8-23) H 03/08/23 04:32 Creatinine 3.8 mg/dL (0.7-1.2) H 03/08/23 04:32 GFR Calculation Not Reportable 03/08/23 04:32 Glucose 136 mg/dL (65-115) H 03/08/23 04:32 POC Glucose 172 mg/dL (70-110) H 03/09/23 05:55 Calculated Osmolality 293 mOsm/kg (285-295) 03/08/23 04:32 Calcium 9.0 mg/dL (8.5-10.5) 03/08/23 04:32 Magnesium 1.8 mg/dL (1.7-2.3) 03/07/23 12:15 Total Bilirubin 0.4 mg/dL (0.15-1.2) 03/08/23 04:32 AST 11 U/L (0-40) 03/08/23 04:32 ALT 13 U/L (0-41) 03/08/23 04:32 Alkaline Phosphatase 63 U/L (40-130) 03/08/23 04:32 Troponin T Baseline 89 ng/L (0-15) H 03/07/23 12:15 Troponin T Hi Sens 6Hr 85.69 ng/L (0-15) H 03/07/23 18:39 Troponin T Hi Sens 6Hr Delta -3.31 ng/L (0-12) L 03/07/23 18:39 NT-Pro-B Natriuret Pep 41961 pg/mL (0-450) H 03/07/23 12:15 Total Protein 7.1 g/dL (6.6-8.7) 03/08/23 04:32 Albumin 3.5 g/dL (3.5-5.2) 03/08/23 04:32 Globulin 3.6 g/dL (1.3-4.6) 03/08/23 04:32 Nasal Influ A H1 2008 PCR Not detected (NOT DETECT) 03/07/23 18:49 Adenovirus (PCR) Not detected (NOT DETECT) 03/07/23 18:49 C. pneumoniae DNA (PCR) Not detected (NOT DETECT) 03/07/23 18:49 Coronavirus 229E (PCR) Not detected (NOT DETECT) 03/07/23 18:49 Human Metapneumovir PCR Not detected (NOT DETECT) 03/07/23 18:49 Influenza A (H1) PCR Not detected (NOT DETECT) 03/07/23 18:49 Influenza A (H3) PCR Not detected (NOT DETECT) 03/07/23 18:49 Influenza Type A (PCR) Not detected (NOT DETECT) 03/07/23 18:49 Influenza Type B (PCR) Not detected (NOT DETECT) 03/07/23 18:49 M. pneumoniae (PCR) Not detected (NOT DETECT) 03/07/23 18:49 Parainfluenza 1 (PCR) Not detected (NOT DETECT) 03/07/23 18:49 Parainfluenza 2 (PCR) Not detected (NOT DETECT) 03/07/23 18:49 Parainfluenza 3 (PCR) Not detected (NOT DETECT) 03/07/23 18:49 Parainfluenza 4 (PCR) Not detected (NOT DETECT) 03/07/23 18:49 RSV Type A (PCR) Not detected (NOT DETECT) 03/07/23 18:49 RSV Type B (PCR) Not detected (NOT DETECT) 03/07/23 18:49 Entero/Rhino (PCR) Not detected (NOT DETECT) 03/07/23 18:49 SARS-CoV-2 (PCR) Not detected (NOT DETECT) 03/07/23 18:49 Vitals Last Vital Signs Temp 97.8 F 03/09/23 07:40 Pulse 62 03/09/23 08:10 Resp 18 03/09/23 08:10 BP 149/82 03/09/23 07:40 Pulse Ox 88 L 03/09/23 09:48 O2 Del Method Nasal Cannula 03/09/23 08:10 O2 Flow Rate 6 03/09/23 09:48 Discharge Plan Discharge Patient Disposition: Home Condition: Stable Prescriptions: Continued atorvastatin 80 mg tablet 80 mg PO DAILY@1800 Mircera 30 mcg/0.3 mL syringe 60 mcg SUBCUT Q14D gabapentin 300 mg capsule 300 mg PO BID@,18 sevelamer carbonate [Renvela] 800 mg tablet 2,400 mg PO TID@,,18 albuterol sulfate 90 mcg/actuation HFA aerosol inhaler 2 puff inhalation Q6H PRN (Reason: shortness of breath or wheezing) 30 Days Qty: 8.5 3RF famotidine [Pepcid] 20 mg tablet 20 mg PO BID@, Saxenda 3 mg/0.5 mL (18 mg/3 mL) pen injector 3 mg SUBCUT DAILY PRN (Reason: weight loss) Rx Instructions: ( states not taken since oct) cholecalciferol (vitamin D3) 50 mcg (2,000 unit) capsule 50 mcg PO QAM Daliresp 250 mcg tablet 500 mcg PO DAILY multivitamin Tablet 1 tab PO DAILY spironolactone 50 mg tablet 50 mg PO DAILY@09 Qty: 90 1RF furosemide 40 mg tablet 40 mg PO DAILY Qty: 90 3RF diclofenac sodium [Voltaren Arthritis Pain] 1 % gel 2 g topical QID Qty: 100 0RF Rx Instructions: apply to left bunion to relieve pain (DME) Diabetic Shoes with 3 Custom Inserts See Rx Instructions .Route .MEDSUPPLY Qty: 1 0RF Rx Instructions: As directed isosorbide mononitrate 30 mg tablet extended release 24 hr 15 mg PO BID Qty: 90 3RF Eliquis 5 mg tablet 5 mg PO BID Qty: 180 3RF carvedilol 6.25 mg tablet 9.375 mg PO DIRECTED Qty: 135 0RF Rx Instructions: 6.25mg (1 tab) in AM & 3.125mg (0.5 tab) in PM allopurinol 100 mg Tablet 100 mg PO DAILY PRN (Reason: Gout) oxycodone-acetaminophen 5-325 mg Tablet 1 tab PO BEDTIME Rx Instructions: May also take 1/2 tab prn polyethylene glycol 3350 [Miralax] 17 gram/dose Powder 17 g PO DAILY PRN (Reason: Constipation) docusate sodium 100 mg Capsule 200 mg PO BID@09,18 insulin glargine [Lantus U-100 Insulin] 100 unit/mL Solution 35 unit SUBCUT QAM Stiolto Respimat 2.5-2.5 mcg/actuation mist 2 puff inhalation QAM albuterol sulfate 2.5 mg /3 mL (0.083 %) Solution For Nebulization 2.5 mg inhalation Q6H PRN (Reason: Shortness Of Breath) lidocaine-prilocaine 2.5-2.5 % Cream 1 applic topical TID PRN (Reason: Pain) gentamicin 0.1 % Cream 1 applic TOPICAL TID PRN (Reason: unknown) cinacalcet 30 mg Tablet 30 mg PO .THREE TIMES A WEEK Rx Instructions: at dialysis omega-3 fatty acids 1,000 mg Capsule 1,000 mg PO BID@,18 cetirizine [Zyrtec] 10 mg Tablet 10 mg PO DAILY@18 ondansetron HCl 8 mg Tablet 4 mg PO Q6H PRN (Reason: Nausea And Vomiting) nitroglycerin [Nitrostat] 0.4 mg Tablet, Sublingual 0.4 mg SUBLINGUAL Q5M PRN (Reason: Chest Pain) Rx Instructions: do not exceed 3 doses per episode doxercalciferol 1 mcg Capsule 1 mcg PO .THREE TIMES A WEEK Brilinta 90 mg Tablet 90 mg PO BID RenaPlex 800 mcg- 12.5 mg Tablet 1 tab PO DAILY Discharge Orders: Discharge Order (Routine); Ordered 03/09/23 Ordered By: Renetta Harvey Other Ambulatory Orders: DME: Oxygen (Order) Location: None Selected Ordered By: Renetta Harvey Referrals: Adria Artis DO [Primary Care Provider] - 03/17/23 11:30 am ( ) Marlene Vaughn FNP [Nurse Practitioner] - 2 weeks Patient Instructions: Opioid Safety Discharge Attestations Time Spent in Discharge Care*: greater than 30 min Quality Metrics Clinical Quality Measures [ No reported AMI, CVA or VTE this stay] Coding Level of Care Code Acute Code for Chg Fwd Diagnoses Acute and chronic respiratory failure with hypoxia J96.21 End-stage renal disease (ESRD) N18.6 Diabetes mellitus E11.9 Restrictive lung disease J98.4 Shortness of breath R06.02 Elevated troponin R77.8 Hypervolemia E87.70
--- NOTE | 2023-03-09 17:13 | PM.PN ---
Subjective Subjective: No new c/o Medications: Reviewed: Yes Vitals/I&O/Wt Last Vital Signs Temp 97.6 F 03/09/23 12:00 Pulse 62 03/09/23 14:55 Resp 18 03/09/23 14:55 BP 138/77 03/09/23 12:00 Pulse Ox 93 03/09/23 14:55 O2 Del Method Nasal Cannula 03/09/23 14:55 O2 Flow Rate 4 03/09/23 14:55 03/09/23 03/09/23 03/09/23 06:59 14:59 22:59 Intake Total 240 / 2040 960 / 960 Balance 240 / 2040 960 / 960 Data 03/08/23 04:32 03/08/23 04:32 A&P Assessment and plan (1) End-stage renal disease (ESRD): Plan 1. ESRD, HD MWF, HD today 2. Acute on chronic resp failure , copd 5. Anemia, stable, iron replete, epogen at dialysis Attestations Medical Necessity Statement*: per medicine Coding Level of Care Code Acute Code for Chg Fwd Diagnoses End-stage renal disease (ESRD) N18.6
== END 2023-03-09 16:07 | disposition home or self-care (01) | DRG 291 ==
LOC: ER 13:49 → MEDSURG 15:12
PROVIDERS: Admitting Provider Student in an Organized Health Care Education/Training Program; Emergency Provider Emergency Medicine; PCP Emergency Medicine Emergency Medical Services; Visit Provider Student in an Organized Health Care Education/Training Program
DX: I13.2 Hypertensive heart and chronic kidney disease with heart failure and with stage 5 chronic kidney disease, or end stage renal disease (principal); I50.23 Acute on chronic systolic (congestive) heart failure; N18.6 End stage renal disease; J96.21 Acute and chronic respiratory failure with hypoxia; E11.22 Type 2 diabetes mellitus with diabetic chronic kidney disease; Z99.2 Dependence on renal dialysis; E11.42 Type 2 diabetes mellitus with diabetic polyneuropathy; J44.9 Chronic obstructive pulmonary disease, unspecified; D63.1 Anemia in chronic kidney disease; I25.10 Atherosclerotic heart disease of native coronary artery without angina pectoris; Z95.5 Presence of coronary angioplasty implant and graft; Z99.81 Dependence on supplemental oxygen; R77.8 Other specified abnormalities of plasma proteins; M51.34 Other intervertebral disc degeneration, thoracic region; M85.88 Other specified disorders of bone density and structure, other site; Z79.51 Long term (current) use of inhaled steroids; Z79.01 Long term (current) use of anticoagulants; Z79.899 Other long term (current) drug therapy; Z79.4 Long term (current) use of insulin; Z79.02 Long term (current) use of antithrombotics/antiplatelets; E86.1 Hypovolemia; Z87.891 Personal history of nicotine dependence; Z87.01 Personal history of pneumonia (recurrent); Z95.0 Presence of cardiac pacemaker; G47.33 Obstructive sleep apnea (adult) (pediatric); I25.2 Old myocardial infarction; E78.00 Pure hypercholesterolemia, unspecified; I48.91 Unspecified atrial fibrillation
CPT/HCPCS: 36415; 36416; 71045; 72070; 80053; 82962; 83735; 83880; 84484; 85025; 85610; 87486; 87581; 87633; 90935; 93005; 94640; 94760; 96372; 99285; C8929; J1644; J1815; J1940; J7613; J7626; Q3014; Q9956

== ENCOUNTER → 2023-03-16 13:35 | Outpatient (BNVA) | payer OTHER, SELFPAY | PROVIDERS: PCP Emergency Medicine Emergency Medical Services; Visit Provider Internal Medicine Pulmonary Disease | DX: J90 Pleural effusion, not elsewhere classified (principal) | CPT/HCPCS: 71046 ==

== ENCOUNTER 2023-03-22 08:40 | Day surgery (SDC) | payer OTHER, SELFPAY ==
[2023-03-21 08:31] VITALS: BMI 36.9
[2023-03-22 08:48] VITALS: BP 133/81; PULSE 89; RESP 20; TEMP 36.3; O2SAT 92
[2023-03-22 09:38] LABS: INR 1.15 (0.8-1.2)
== END 2023-03-22 10:10 | disposition home or self-care (01) ==
LOC: GILAB 08:41
PROVIDERS: PCP Emergency Medicine Emergency Medical Services; Visit Provider Internal Medicine Pulmonary Disease
DX: Z53.9 Procedure and treatment not carried out, unspecified reason (principal); C80.1 Malignant (primary) neoplasm, unspecified; J90 Pleural effusion, not elsewhere classified
CPT/HCPCS: 36415; 85610

== ENCOUNTER → 2023-03-24 09:24 | Outpatient (BNVA) | payer OTHER, SELFPAY | PROVIDERS: PCP Emergency Medicine Emergency Medical Services; Visit Provider Nurse Practitioner Family | DX: I13.2 Hypertensive heart and chronic kidney disease with heart failure and with stage 5 chronic kidney disease, or end stage renal disease (principal); E11.22 Type 2 diabetes mellitus with diabetic chronic kidney disease; N18.6 End stage renal disease; I50.20 Unspecified systolic (congestive) heart failure; Z99.2 Dependence on renal dialysis; Z79.4 Long term (current) use of insulin; I25.10 Atherosclerotic heart disease of native coronary artery without angina pectoris; I48.91 Unspecified atrial fibrillation; Z79.01 Long term (current) use of anticoagulants; Z87.891 Personal history of nicotine dependence | CPT/HCPCS: 99214 ==

== ENCOUNTER → 2023-04-05 15:01 | Outpatient (BNVA) | payer OTHER, SELFPAY | PROVIDERS: PCP Emergency Medicine Emergency Medical Services; Visit Provider Podiatrist Foot & Ankle Surgery | DX: M21.41 Flat foot [pes planus] (acquired), right foot; M21.42 Flat foot [pes planus] (acquired), left foot; L60.3 Nail dystrophy; N18.6 End stage renal disease; Z99.2 Dependence on renal dialysis; M20.41 Other hammer toe(s) (acquired), right foot; M20.42 Other hammer toe(s) (acquired), left foot; M21.612 Bunion of left foot; E11.42 Type 2 diabetes mellitus with diabetic polyneuropathy; E11.22 Type 2 diabetes mellitus with diabetic chronic kidney disease; Z79.4 Long term (current) use of insulin | CPT/HCPCS: 11721 ==

== ENCOUNTER 2023-04-18 11:29 | Emergency (ER) | payer OTHER, SELFPAY ==
[2023-04-18 11:40] VITALS: BP 158/70; PULSE 64; RESP 16; TEMP 36.7; O2SAT 91; BMI 36.9
[2023-04-18 12:30] VITALS: BP 166/106; PULSE 60; RESP 18; O2SAT 98
--- NOTE | 2023-04-18 13:03 | XR_ITS ---
WS: [id number] XR thoracic spine 2V [id number] REASON FOR EXAM: nontraumatic t spine pain FINDINGS: Suboptimal examination due to body habitus and upper thoracic spine kyphosis. The thoracic cervical spine appears unchanged compared to 03/08/2023. No interval compression deformit ies. No focal vertebral body lesions. Significant degenerative spondylosis with joint space narrowing, endplate sclerosis and anterior oste ophytosis in the mid and lower thoracic cervical spine. XR/XR thoracic spine 2V [id number] IMPRESSION: Stable abnormal examination without acute abnormality.
--- NOTE | 2023-04-18 13:09 | PC.PHAR ---
ANA PAULA PEREZ FOR MED LIST 04/18/23 1:09 PM
[2023-04-18 13:30] VITALS: BP 160/93; PULSE 80; RESP 18; O2SAT 97
--- NOTE | 2023-04-18 13:53 | ED_ITS ---
HPI - Back Pain/Injury General: Chief Complaint: Back Pain/Injury Stated Complaint: back pain Time Seen by Provider: 04/18/23 12:18 History of Present Illness: Patient presents to the ER with right-sided thoracic back pain. Patient was sitting at dialysis today and his right mid thoracic right of his spine started hurting. Patient said he has a pain every once in a while was never had pain quite this bad. Patient denies any trauma strain strenuous movement etc. This pain is constant. Patient is muscle is spastic in nature. Review of Systems General: Reports: 10 or more systems reviewed and unremarkable except in HPI and below PFSH ED PFSH: Medical History Accelerated essential hypertension Anemia Atrial fibrillation CAD (coronary artery disease) CHF (congestive heart failure) Chronic anticoagulation Diabetes mellitus ESRD (end stage renal disease) Heart failure Hypercholesteremia LV dysfunction Myocardial infarct Neuropathy NSTEMI (non-ST elevated myocardial infarction) MARAL (obstructive sleep apnea) Pacemaker Pneumonia Renal failure Respiratory failure with hypoxia Restrictive lung disease Small airways disease Surgical History Hemodialysis access, AV graft History of colonoscopy with polypectomy 2020 Peritoneal dialysis status (03/02/21) removed S/P cardiac pacemaker procedure S/P cataract surgery S/P dialysis catheter insertion S/P PTCA (percutaneous transluminal coronary angioplasty) Family History Mother Heart disease Social History Smoking and tobacco status: former smoker Quit status (tobacco): has quit using tobacco Year quit tobacco: 1984 Former quit date comment: 3PPD x 17 Years Second hand smoke exposure: No Smoking risk assessment/counseling performed?: No Alcohol intake: never Counseling given: No Substance/Drug Use: never Counseling given: No Lives independently: Yes Household members: spouse Housing: House Marital status: service: Yes Current occupational status: retired Pets and animals: No Do you think of yourself as: Straight/Heterosexual Current gender identity: Male Physical Exam Const: COMMON NORMALS: no acute distress, average body habitus, patient oriented x3, no limitations, healthy appearing, alert and well nourished HENMT: COMMON NORMALS: normocephalic, atraumatic, hearing grossly normal bilaterally, external ears normal, Normal external nose present and moist oral mucous membranes HEAD & SCALP: normocephalic and atraumatic NOSE: Normal external nose present EXTERNAL EAR: Yes external ears normal Neck/C-Spine: COMMON NORMALS: full ROM, no lymphadenopathy, supple, no meningeal signs, no JVD and Thyroid normal THYROID: Thyroid normal Resp: COMMON NORMALS: normal respiratory effort, No retractions, No use of accessory muscles and clear to auscultation bilaterally AUSCULTATION: clear to auscultation bilaterally Cardio: COMMON NORMALS: no JVD, regular rate, regular rhythm, S1 normal heart sound present, S2 normal heart sound present, No gallops present (Cardio), No clicks present (Cardio), No murmurs present (Cardio) and No rub (Cardio) RATE: regular rate RHYTHM: regular rhythm HEART SOUNDS: S1 normal heart sound present and S2 normal heart sound present GI: COMMON NORMALS: Normal to inspection, nondistended, normoactive bowel sounds present, Soft to palpation, non-tender, No hepatosplenomegaly present and no masses PALPATION: Yes Soft to palpation and Yes No hepatosplenomegaly present Back/Pelvis: OTHER: Positive tenderness and spastic ropey musculature to right thoracic paraspinal musculature. Neuro: COMMON NORMALS: patient oriented x3 SENSORIUM/ORIENTATION: Yes alert MENINGEAL SIGNS: Yes no meningeal signs Course Vital Signs: Vital signs: Vital Signs Temperature 98.1 F 04/18/23 11:40 Pulse Rate 80 04/18/23 13:30 Respiratory Rate 18 04/18/23 13:30 Blood Pressure 160/93 04/18/23 13:30 Pulse Oximetry 97 04/18/23 13:30 Oxygen Delivery Me thod Nasal Cannula 04/18/23 12:30 Oxygen Flow Rate 4 04/18/23 12:30 MDM - Back Pain/Injury Medical Decision Making Patient presents to the ER with right thoracic paraspinal muscle pain. Patient did not do anything that known to trigger this. Patient was given Robaxin p.o. while he waited an x-ray. This did seem to help his x-ray was stable without acute abnormality. These results was discussed with the patient and patient will be discharged home on some Flexeril. And is to follow-up with his primary care doc in the next week. Differential Diagnosis Likely thoracic back pain; Unlikely lumbar radiculopathy, sciatica, strain of lumbar region, renal colic, pyelonephritis, AAA or discitis Medical Records I reviewed the patient's medical records. Labs I reviewed the patient's lab results. Radiology Impressions Thoracic Spine X-Ray 04/18/23 13:03 IMPRESSION: Stable abnormal examination without acute abnormality. Discharge Plan Discharge Patient Disposition: Home Clinical Impression: Spasm of thoracic back muscle Condition: Stable Prescriptions: New cyclobenzaprine 5 mg tablet 5 mg PO TID PRN (Reason: muscle spasm) Qty: 14 0RF No Action atorvastatin 80 mg tablet 80 mg PO DAILY@1800 Mircera 30 mcg/0.3 mL syringe 60 mcg SUBCUT Q14D gabapentin 300 mg capsule 300 mg PO BID@,18 sevelamer carbonate [Renvela] 800 mg tablet 2,400 mg PO TID@09,,18 albuterol sulfate 90 mcg/actuation HFA aerosol inhaler 2 puff inhalation Q6H PRN (Reason: shortness of breath or wheezing) 30 Days Qty: 8.5 3RF famotidine [Pepcid] 20 mg tablet 20 mg PO BID@,18 Saxenda 3 mg/0.5 mL (18 mg/3 mL) pen injector 3 mg SUBCUT DAILY PRN (Reason: weight loss) cholecalciferol (vitamin D3) 50 mcg (2,000 unit) capsule 50 mcg PO QAM Daliresp 250 mcg tablet 500 mcg PO DAILY multivitamin Tablet 1 tab PO DAILY spironolactone 50 mg tablet 50 mg PO DAILY@09 Qty: 90 1RF furosemide 40 mg tablet 40 mg PO DAILY Qty: 90 3RF (DME) Diabetic Shoes with 3 Custom Inserts See Rx Instructions .Route .MEDSUPPLY Qty: 1 0RF Rx Instructions: As directed isosorbide mononitrate 30 mg tablet extended release 24 hr 15 mg PO BID Qty: 90 3RF apixaban 5 mg tablet 5 mg PO BID Qty: 180 3RF allopurinol 100 mg Tablet 100 mg PO DAILY PRN (Reason: Gout) oxycodone-acetaminophen 5-325 mg Tablet 1 tab PO BEDTIME Rx Instructions: May also take 1/2 tab prn docusate sodium 100 mg Capsule 200 mg PO BID@09,18 insulin glargine [Lantus U-100 Insulin] 100 unit/mL Solution 35 unit SUBCUT QAM Stiolto Respimat 2.5-2.5 mcg/actuation mist 2 puff inhalation QAM albuterol sulfate 2.5 mg /3 mL (0.083 %) Solution For Nebulization 2.5 mg inhalation Q6H PRN (Reason: Shortness Of Breath) lidocaine-prilocaine 2.5-2.5 % Cream 1 applic topical TID PRN (Reason: Pain) cinacalcet [Sensipar] 30 mg Tablet 30 mg PO .THREE TIMES A WEEK Rx Instructions: at dialysis carvedilol 6.25 mg tablet See Rx Instructions .ROUTE .COMPLEX Rx Instructions: 6.25mg (1 tab) in AM & 3.125mg (0.5 tab) in PM omega-3 fatty acids 1,000 mg Capsule 1,000 mg PO BID@,18 cetirizine [Zyrtec] 10 mg Tablet 10 mg PO DAILY@18 ondansetron HCl 8 mg Tablet 4 mg PO Q6H PRN (Reason: Nausea And Vomiting) nitroglycerin [Nitrostat] 0.4 mg Tablet, Sublingual 0.4 mg SUBLINGUAL Q5M PRN (Reason: Chest Pain) Rx Instructions: do not exceed 3 doses per episode doxercalciferol 1 mcg Capsule 1 mcg PO .THREE TIMES A WEEK Brilinta 90 mg Tablet 90 mg PO BID RenaPlex 800 mcg- 12.5 mg Tablet 1 tab PO DAILY Discharge Orders: Discharge ED (Routine); Ordered 04/18/23 Ordered By: Geovani Moulton Referrals: Adria Artis DO [Primary Care Provider] - 1 week Patient Instructions: Muscle Spasm (ED) Activity Restrictions/Additional Instructions: Please take the muscle relaxers as needed as directed. Please do not drive while on them as they may make your reaction time slower. Please follow-up with your family practice doctor within the next 1 week or sooner as needed for further evaluation and treatment. Coding Level of Care Code ED Documentation Consultant for Aurelia Chaudhari
--- NOTE | 2023-04-18 13:57 | PC.PHAR ---
PATIENT MED LIST PROVIDED BY SPOUSE.
[2023-04-18] MEDS: methocarbamol 750 mg Tablet PO (13:59)
[2023-04-18 14:00] VITALS: BP 182/84; PULSE 65; RESP 18; O2SAT 98
[2023-04-18 15:25] VITALS: BP 165/77; PULSE 62; RESP 18; O2SAT 97
== END 2023-04-18 15:26 | disposition home or self-care (01) ==
PROVIDERS: Emergency Provider Emergency Medicine; PCP Emergency Medicine Emergency Medical Services
DX: M62.830 Muscle spasm of back (principal)
CPT/HCPCS: 72070; 99283

== ENCOUNTER 2023-05-23 10:36 | Outpatient (CLI) | payer OTHER, SELFPAY ==
--- NOTE | 2023-05-23 10:43 | XR_ITS ---
WS: [id number] Exam: XR chest 2V* [id number] Date/Time of Exam: 05/23/2023 10:48 AM Reason For Exam: J90 - Pleural effusion, not elsewhere classified Comparison 03/16/2023. There is cardiac enlargement with pulmonary vascular congestion and right-sided pleural effusion sugg esting chronic CHF. No pneumothorax. No consolidated infiltrates. An ICD superimposes the LEFT chest. The mediastinum is normal in contour. Signs of coronary artery stenting. Bony structures are intact. IMPRESSION: 1. Cardiac enlargement with pulmonary vascular congestion and right-sided pleural effusion suggesting chronic CHF. Very little change since the last exam.
== END 2023-05-23 10:37 | disposition home or self-care (01) ==
PROVIDERS: PCP Emergency Medicine Emergency Medical Services; Visit Provider Internal Medicine Pulmonary Disease
DX: J90 Pleural effusion, not elsewhere classified (principal); I51.7 Cardiomegaly; R09.89 Other specified symptoms and signs involving the circulatory and respiratory systems
CPT/HCPCS: 71046

== ENCOUNTER 2023-06-20 10:47 | Emergency (ER) | payer OTHER, SELFPAY ==
[2023-06-20 11:01] VITALS: BP 175/77; PULSE 61; RESP 24; TEMP 36.4; O2SAT 94; BMI 37.1
--- NOTE | 2023-06-20 11:09 | XR_ITS ---
WS: [id number] PORTABLE CHEST HISTORY: dyspnea/cough COMPARISON: 05/23/2023 Single lead LEFT subclavian cardiac pacer wire. Mild hyperinflated lungs. Coarsened interstitium throughout the lungs. There is pulmonary congestion. Increasing opacification over the RIGHT mid to lower lung may be areas of atelectasis and the layeri ng pleural effusion. There is a small layering RIGHT pleural effusion. Cardiac size: Marked enlargement of the heart. Moderate atherosclerosis aorta. Mediastinum/Aorta: Prominent mediastinum due to pulmonary congestion and portable technique. Osteopenia. IMPRESSION: 1. Moderate cardiomegaly. 2. Moderate pulmonary venous congestion. 3. Small layering RIGHT pleural effusion. 4. Increased opacification over the RIGHT lung probably combination of atelectasis and pleural fluid.
--- NOTE | 2023-06-20 11:09 | W.ED.SOB ---
HPI - SOB/Dyspnea General: Chief Complaint: Shortness of Breath/Dyspnea Stated Complaint: lungs need checked, dialysis center sent Time Seen by Provider: 06/20/23 11:08 Source: patient Mode of arrival: ambulatory History of Present Illness: HPI Narrative: 78-year-old male presents emergency room complaining of some shortness of breath over the weekend. Patient has a history of congestive heart failure is chronically on oxygen of 4 L when he is active he needs it turned up to 6 over the weekend he seemed more short of breath he received all of his regular dialysis treatment yesterday he went to dialysis today and they had a slightly longer run today they took more fluid than usual he still feels somewhat short of breath on arrival here he is on 6 L but we were able to titrate him down to 4 L and he tolerated well throughout the entire visit here. MD elicited complaint: shortness of breath and cough Pertinent past history: COPD Onset (ago): hour(s) Exacerbating factors: nothing Relieving factors: oxygen and rest Associated symptoms: Reports cough and orthopnea; Deny abdominal pain, chest congestion, chest pain or fever(s) Treatment prior to arrival: oxygen Review of Systems Const: Denies: fever(s) or chills Card: Reports: swelling of feet/ankles (Chronic) and orthopnea; Denies: chest pain Resp: Reports: dyspnea and non-productive cough; Denies: wheezing or chest congestion GI: Denies: abdominal pain : Denies: dysuria, urinary frequency or urinary urgency Musc: Denies: neck pain or back pain Skin/Breast: Denies: rash PFSH ED PFSH: Medical History Accelerated essential hypertension Anemia Atrial fibrillation CAD (coronary artery disease) CHF (congestive heart failure) Chronic anticoagulation Diabetes mellitus ESRD (end stage renal disease) Heart failure Hypercholesteremia LV dysfunction Myocardial infarct Neuropathy NSTEMI (non-ST elevated myocardial infarction) MARAL (obstructive sleep apnea) Pacemaker Pneumonia Renal failure Respiratory failure with hypoxia Restrictive lung disease Small airways disease Surgical History Hemodialysis access, AV graft History of colonoscopy with polypectomy 2020 Peritoneal dialysis status (03/02/21) removed S/P cardiac pacemaker procedure S/P cataract surgery S/P dialysis catheter insertion S/P PTCA (percutaneous transluminal coronary angioplasty) Family History Mother Heart disease Social History Smoking and tobacco status: former smoker Quit status (tobacco): has quit using tobacco Year quit tobacco: 1984 Former quit date comment: 3PPD x 17 Years Second hand smoke exposure: No Smoking risk assessment/counseling performed?: No Alcohol intake: never Counseling given: No Substance/Drug Use: never Counseling given: No Lives independently: Yes Household members: spouse Housing: House Marital status: service: Yes Current occupational status: retired Pets and animals: No Do you think of yourself as: Straight/Heterosexual Current gender identity: Male Physical Exam Const: GENERAL APPEARANCE: cooperative and comfortable ORIENTATION/CONSCIOUSNESS: Yes awake, Yes oriented to person, Yes oriented to place and Yes oriented to time HENMT: COMMON NORMALS: normocephalic, atraumatic and hearing grossly normal bilaterally HEAD & SCALP: normocephalic and atraumatic Resp: COMMON NORMALS: normal respiratory effort, No retractions and No use of accessory muscles AUSCULTATION: crackles Cardio: COMMON NORMALS: regular rate, regular rhythm and No murmurs present (Cardio) RATE: regular rate RHYTHM: regular rhythm GI: COMMON NORMALS: Soft to palpation and No hepatosplenomegaly present AUSCULTATION: Yes normoactive bowel sounds PALPATION: Yes Soft to palpation, No Tenderness to palpation present (GI), No Guarding due to palpation present (GI) and Yes No hepatosplenomegaly present Extremity: COMMON NORMALS: normal to inspection, capillary refill normal, no clubbing, cyanosis or edema, no calf tenderness and no pedal edema Neuro: SENSORIUM/ORIENTATION: Yes oriented to person, Yes oriented to place and Yes oriented to time Skin: COMMON NORMALS: no rashes or lesions noted GENERAL SKIN EXAM: no rashes or lesions noted Course Vital Signs: Vital signs: Vital Signs Temperature 97.5 F L 06/20/23 11:01 Pulse Rate 61 06/20/23 11:01 Respiratory Rate 24 H 06/20/23 11:01 Blood Pressure 175/77 06/20/23 11:01 Pulse Oximetry 94 06/20/23 11:01 Oxygen Delivery Me thod Nasal Cannula 06/20/23 11:01 Oxygen Flow Rate 4 06/20/23 11:01 MDM - SOB/Dyspnea Medical Decision Making Patient doing well on his usual 4 L. There is some moderate pulmonary vascular congestion and some right-sided pleural effusion. There is not enough to require thoracentesis. He is managing well on his usual 4 L at rest at this time. Labs reviewed. He is not having any chest pain at this point. We will discharge patient home to receive a repeat chest x-ray in 3 to 4 days. Also recommend that he follow-up with Dr. Werner who he has seen in the past. Medical Records I reviewed the patient's medical records. Lab Data I reviewed the patient's lab results. 06/20/23 11:06/20/23 11:23 Labs/Radiology: Laboratory Results WBC 9.35 10^3/uL (3.29-11.43) 06/20/23 11: RBC 3.95 10^6/uL (3.85-5.65) 06/20/23 11: Hgb 11.80 g/dL (11.27-16.99) 06/20/23 11:23 Hct 37.4 % (37-53) 06/20/23 11: MCV 94.7 fl (82-101) 06/20/23 11:23 MCH 29.9 pg (27-33) 06/20/23 11: MCHC 31.6 g/dL (30-55) 06/20/23 11: RDW 16.8 % (12.1-15.1) H 06/20/23 11: Plt Count 212 10^3/cmm (157-399) 06/20/23 11: MPV 10.0 fL (7.4-10.4) 06/20/23 11: Neut % (Auto) 72.6 % 06/20/23 11: Lymph % (Auto) 15.9 % 06/20/23 11:23 Borden % (Auto) 7.7 % 06/20/23 11: Eos % (Auto) 2.4 % 06/20/23 11: Baso % (Auto) 0.9 % 06/20/23 11: Neut # (Auto) 6.79 10^3/uL (1.8-7.7) 06/20/23 11:23 Lymph # (Auto) 1.5 10^3/uL (0.8-4.8) 06/20/23 11:23 Borden # (Auto) 0.7 10^3/uL (0.2-0.9) 06/20/23 11:23 Eos # (Auto) 0.2 10^3/uL (0.0-0.8) 06/20/23 11:23 Baso # (Auto) 0.1 10^3/uL (0.0-0.1) 06/20/23 11:23 Nucleated RBC % (auto) 0 % 06/20/23 11: Nucleated RBCs # 0.0 /100WBC 06/20/23 11:23 Sodium 134 mmol/L (136-145) L 06/20/23 11:23 Potassium 4.2 mmol/L (3.5-5.1) 06/20/23 11:23 Chloride 91 mmol/L (98-107) L 06/20/23 11:23 Carbon Dioxide 30 mmol/L (22-29) H 06/20/23 11:23 Anion Gap 17.2 (5-19) 06/20/23 11:23 BUN 18 mg/dL (8-23) 06/20/23 11:23 Creatinine 2.8 mg/dL (0.7-1.2) H 06/20/23 11:23 GFR Calculation Not Reportable 06/20/23 11:23 Glucose 107 mg/dL (65-115) 06/20/23 11:23 Calculated Osmolality 280 mOsm/kg (285-295) L 06/20/23 11:23 Calcium 9.7 mg/dL (8.5-10.5) 06/20/23 11:23 Magnesium 2.1 mg/dL (1.7-2.3) 06/20/23 11:23 Total Bilirubin 0.7 mg/dL (0.15-1.2) 06/20/23 11:23 AST 28 U/L (0-40) 06/20/23 11:23 ALT 17 U/L (0-41) 06/20/23 11:23 Alkaline Phosphatase 104 U/L (40-130) 06/20/23 11:23 Total Protein 8.7 g/dL (6.6-8.7) 06/20/23 11:23 Albumin 3.9 g/dL (3.5-5.2) 06/20/23 11:23 Globulin 4.8 g/dL (1.3-4.6) H 06/20/23 11:23 All radiology interpretation(s) finalized by discharge Discharge Plan Discharge Patient Disposition: Home Clinical Impression: Congestive heart failure, Atrial fibrillation, End-stage renal disease (ESRD) Condition: Stable Prescriptions: No Action atorvastatin 80 mg tablet 80 mg PO DAILY@1800 Mircera 30 mcg/0.3 mL syringe 60 mcg SUBCUT Q14D gabapentin 300 mg capsule 300 mg PO BID@,18 sevelamer carbonate [Renvela] 800 mg tablet 2,400 mg PO TID@,, albuterol sulfate 90 mcg/actuation HFA aerosol inhaler 2 puff inhalation Q6H PRN (Reason: shortness of breath or wheezing) 30 Days Qty: 8.5 3RF famotidine [Pepcid] 20 mg tablet 20 mg PO BID@, Saxenda 3 mg/0.5 mL (18 mg/3 mL) pen injector 3 mg SUBCUT DAILY PRN (Reason: weight loss) cholecalciferol (vitamin D3) 50 mcg (2,000 unit) capsule 50 mcg PO QAM Daliresp 250 mcg tablet 500 mcg PO QAM spironolactone 50 mg tablet 50 mg PO DAILY@09 Qty: 90 1RF (DME) Diabetic Shoes with 3 Custom Inserts See Rx Instructions .Route .MEDSUPPLY Qty: 1 0RF Rx Instructions: As directed isosorbide mononitrate 30 mg tablet extended release 24 hr 15 mg PO BID Qty: 90 3RF apixaban 5 mg tablet 2.5 mg PO BID Qty: 90 3RF allopurinol 100 mg Tablet 100 mg PO DAILY PRN (Reason: Gout) oxycodone-acetaminophen 5-325 mg Tablet 1 tab PO BEDTIME Rx Instructions: May also take 1/2 tab prn docusate sodium 100 mg Capsule 200 mg PO BID@,18 insulin glargine [Lantus U-100 Insulin] 100 unit/mL Solution 35 unit SUBCUT QAM Stiolto Respimat 2.5-2.5 mcg/actuation mist 2 puff inhalation QAM albuterol sulfate 2.5 mg /3 mL (0.083 %) Solution For Nebulization 2.5 mg inhalation Q6H PRN (Reason: Shortness Of Breath) lidocaine-prilocaine 2.5-2.5 % Cream 1 applic topical TID PRN (Reason: Pain) carvedilol 6.25 mg tablet See Rx Instructions .ROUTE .COMPLEX Rx Instructions: 6.25mg (1 tab) in AM & 3.125mg (0.5 tab) in PM furosemide 40 mg tablet 40 mg PO QAM omega-3 fatty acids 1,000 mg Capsule 1,000 mg PO BID@,18 cetirizine [Zyrtec] 10 mg Tablet 10 mg PO DAILY@18 ondansetron HCl 8 mg Tablet 4 mg PO Q6H PRN (Reason: Nausea And Vomiting) nitroglycerin [Nitrostat] 0.4 mg Tablet, Sublingual 0.4 mg SUBLINGUAL Q5M PRN (Reason: Chest Pain) Rx Instructions: do not exceed 3 doses per episode doxercalciferol 1 mcg Capsule 1 mcg PO .THREE TIMES A WEEK Brilinta 90 mg Tablet 90 mg PO BID RenaPlex 800 mcg- 12.5 mg Tablet 1 tab PO QAM Discharge Orders: Discharge ED (Routine); Ordered 06/20/23 Ordered By: Edgardo Lorenz Referrals: Adria Artis DO [Primary Care Provider] - Discharge Diet: Usual diet Discharge Activity: Resume usual activity Patient Instructions: Opioid Safety, Pain Management Activity Restrictions/Additional Instructions: Follow-up with your doctor towards the end of the week for repeat chest x-ray. Return if you have further problems. Coding Level of Care Code ED Gravel Roofer for Aurelia Chaudhari
--- NOTE | 2023-06-20 11:10 | PC.PHAR ---
FAQUANG PEREZ FOR MED LIST 06/20/23 11:10AM
[2023-06-20 11:31] LABS: Basophils # 0.1 10^3/uL (0.0-0.1); Basophils % 0.9 %; Eosinophils # 0.2 10^3/uL (0.0-0.8); Eosinophils % 2.4 %; Hematocrit 37.4 % (37-53); Lymphocytes # 1.5 10^3/uL (0.8-4.8); Lymphocytes % 15.9 %; Mean Corpuscular HGB Conc 31.6 g/dL (30-55); Mean Corpuscular Hemoglobin 29.9 pg (27-33); Mean Corpuscular Volume 94.7 fl (82-101); Monocytes # 0.7 10^3/uL (0.2-0.9); Monocytes % 7.7 %; Neutrophils # 6.79 10^3/uL (1.8-7.7); Neutrophils % 72.6 %; Nucleated Red Blood Cells % 0 %; Platelet Count 212 10^3/cmm (157-399); Red Blood Count 3.95 10^6/uL (3.85-5.65); Red Cell Distribution Width 16.8 % (12.1-15.1); White Blood Count 9.35 10^3/uL (3.29-11.43)
[2023-06-20 11:48] LABS: Alanine Aminotransferase 17 U/L (0-41); Albumin Level 3.9 g/dL (3.5-5.2); Alkaline Phosphatase 104 U/L (40-130); Blood Urea Nitrogen 18 mg/dL (8-23); Calcium 9.7 mg/dL (8.5-10.5); Carbon Dioxide 30 mmol/L (22-29); Chloride 91 mmol/L (98-107); Globulin 4.8 g/dL (1.3-4.6); Glucose 107 mg/dL (65-115); Magnesium 2.1 mg/dL (1.7-2.3); Osmolality Calculated 280 mOsm/kg (285-295); Sodium 134 mmol/L (136-145); Total Bilirubin 0.7 mg/dL (0.15-1.2); Total Protein 8.7 g/dL (6.6-8.7)
[2023-06-20 11:54] LABS: Anion Gap 17.2 (5-19); Aspartate Amino Transferase 28 U/L (0-40); Creatinine Clr Calc Pharmacy 29.6825; Potassium 4.2 mmol/L (3.5-5.1)
--- NOTE | 2023-06-20 12:02 | ECG_ITS ---
[facility] Test Date: 2023-06-20 Pat Name: Shon Mullen Department: Room: Gender: Male Psychotherapist: : 1945 Requested By: Edgardo Espinoza Order Number: [id number] Dwight MD: Jairo Johnson M.D. Measurements Intervals [place] Rate: 67 P: 0 DC: 0 QRS: 140 QRSD: 160 T: -53 QT: 506 QTc: 534 Interpretive Statements ELECTRONIC VENTRICULAR PACEMAKER INDETERMINATE AXIS RIGHT BUNDLE BRANCH BLOCK [120+ ms QRS DURATION, UPRIGHT V1, 40+ ms S IN I/aVL/V4/V5/V6] LEFT POSTERIOR FASCICULAR BLOCK [QRS AXIS > 109, INFERIOR Q] MARKED T-WAVE ABNORMALITY, CONSIDER ANTEROLATERAL ISCHEMIA [-0.5+ mV T-WAVE IN I/aVL/V3-V6] MODERATE T-WAVE ABNORMALITY, CONSIDER INFERIOR ISCHEMIA [-0.1+ mV T-WAVE IN II/aVF] Compared to ECG 03/07/2023 16:09:05 Indeterminate axis now present Right bundle-branch block now present Left posterior fascicular block now present Electronically Signed On 06-20-2023 12:21:23 CDT by Jairo Johnson M.D. [id number]
--- NOTE | 2023-06-20 14:02 | PC.SOCIAL ---
Pulmonology Referral Referral to clinic at this time. Clinic to contact patient with appt. date/time.
== END 2023-06-20 12:50 | disposition home or self-care (01) ==
PROVIDERS: Emergency Provider Family Medicine; PCP Emergency Medicine Emergency Medical Services
DX: E11.22 Type 2 diabetes mellitus with diabetic chronic kidney disease (principal); I13.2 Hypertensive heart and chronic kidney disease with heart failure and with stage 5 chronic kidney disease, or end stage renal disease; I50.9 Heart failure, unspecified; N18.6 End stage renal disease; I25.10 Atherosclerotic heart disease of native coronary artery without angina pectoris; I25.2 Old myocardial infarction; Z95.0 Presence of cardiac pacemaker; Z87.891 Personal history of nicotine dependence; I48.91 Unspecified atrial fibrillation; Z79.4 Long term (current) use of insulin
CPT/HCPCS: 36415; 71045; 80053; 83735; 85025; 93005; 99285

== ENCOUNTER 2023-07-01 12:13 | Emergency (ER) | payer OTHER, SELFPAY ==
[2023-07-01 12:20] VITALS: BP 159/72; PULSE 72; RESP 18; TEMP 36.7; O2SAT 93; BMI 38.2
[2023-07-01 12:24] VITALS: BP 155/73; PULSE 78; RESP 18; O2SAT 94
--- NOTE | 2023-07-01 12:58 | USCV_ITS ---
Shon Mullen Age: 78 Gender: M : 1945 Exam Date: 07/01/2023 13:17 Ordering Phys: Ashley Renee Technologist: Naun Sanchez Exam Location: [facility] [place]_ Indication: LLE edema PROCEDURES: Venous duplex imaging was performed in only the left lower extremity. The following venous structures were evaluated: common femoral vein, profunda vein, proximal portion of the greater saphenous vein, superficial femoral vein, and the popliteal vein. In addition, the posterior tibial and peroneal trunk were evaluated. Serial compression, augmentation maneuvers, and spectral Doppler flow evaluation were performed. FINDINGS: Normal 2-D Doppler and augmentation and compressibility throughout the lower extremity venous structures. Additional imaging through the proximal calf veins also reveals no thrombus. Limited evaluation of the greater saphenous vein is patent with no thrombus. CONCLUSIONS No evidence of left lower extremity DVT. Mc Lea MD (Electronically Signed) Final Date: 01 July 2023 15:58 S
--- NOTE | 2023-07-01 13:00 | XR_ITS ---
WS: [id number] Portable AP upright chest, 07/01/2023 Clinical Data: LLE edema Comparison: Portable chest, 06/20/2023 Findings: The heart remains enlarged. There is opacification of the right lower lobe and to a lesser extent the left lower lobe which may represent atelectasis, edema and/or effusion. The upper lobes re main clear. No nodules or masses are seen. The aortic arch and descending thoracic aorta show calcifi cation and tortuosity. There is a permanent pacemaker overlying the left axilla with the wire leading to the heart. Impression: 1. Bilateral lower lobe opacities more on right than left. 2. Cardiomegaly and atherosclerosis.
--- NOTE | 2023-07-01 13:01 | XR_ITS ---
WS: [id number] Left foot, 3 views portable, 07/01/2023 Clinical Data: redness, wound Comparison: Left foot, 01/04/2023 Findings: No fractures or dislocations are seen. There is a bunion at the head of the left first metatarsal. Th ere are flexion deformities of the left first through fifth toes. Vascular calcification is noted. Th ere is a plantar spur. Impression: 1. Bunion at head of left first metatarsal. 2. Flexion deformities of the first through fifth toes.
--- NOTE | 2023-07-01 13:16 | W.ED.EXTPRO ---
HPI - Extremity Problem General: Chief complaint: Extremity Problem,Nontraumatic Stated complaint: left foot swollen Time Seen by Provider: 07/01/23 12:38 Source: patient and family Mode of arrival: wheelchair Limitations: no limitations History of Present Illness: Patient presents to the emergency department today encouraged by his [facility] physician for evaluation treatment of redness and acute swelling of his left foot and toes. Patient had a corn on his left foot which came off about a week ago. He had not had any issues with it and states he went to bed last night with everything as normal. However, when he got up this morning he had noticeable swelling of his left lower extremity, foot, and toes with noticeable redness and significant redness primarily of the fourth toe on the left foot. Patient has been a chronic dialysis patient for the last 5 years and indicated he had dialysis this morning. He did go to dialysis and had full dialysis performed. He states after that he went to the [facility] and was evaluated by a nurse there as he was asking for an appointment with one of the doctors. They recommended he be seen and evaluated in the emergency department. Patient does notice pain in this area though he chronically has neuropathy. He has not noticed any fever. He is typically on 4 L by nasal cannula and has not noticed any acute respiratory distress or need to increase his nasal O2. He is denying chest pains. No noticeable onset of edema to the right lower extremity at this time. Review of Systems General: Reports: 10 or more systems reviewed and unremarkable except in HPI and below [facility] ED PFSH: Medical History Accelerated essential hypertension Anemia Atrial fibrillation CAD (coronary artery disease) CHF (congestive heart failure) Chronic anticoagulation Diabetes mellitus ESRD (end stage renal disease) Heart failure Hypercholesteremia LV dysfunction Myocardial infarct Neuropathy NSTEMI (non-ST elevated myocardial infarction) MARAL (obstructive sleep apnea) Pacemaker Pneumonia Renal failure Respiratory failure with hypoxia Restrictive lung disease Small airways disease Surgical History Hemodialysis access, AV graft History of colonoscopy with polypectomy 2020 Peritoneal dialysis status (03/02/21) removed S/P cardiac pacemaker procedure S/P cataract surgery S/P dialysis catheter insertion S/P PTCA (percutaneous transluminal coronary angioplasty) Family History Mother Heart disease Social History Smoking and tobacco/nicotine status: former use of tobacco/nicotine Quit status (tobacco/nicotine): has quit using Year quit tobacco: 1984 Former quit date comment: 3PPD x 17 Years Second hand smoke exposure: No Alcohol intake: never Substance/Drug Use: never Lives independently: Yes Household members: spouse Housing: House Marital status: service: Yes Current occupational status: retired Pets and animals: No Do you think of yourself as: Straight/Heterosexual Current gender identity: Male Physical Exam Const: COMMON NORMALS: no acute distress, patient oriented x3 and alert OTHER: Patient is pleasant, social. Answers his own history. Nontoxic-appearing. Vital signs are stable. HENMT: COMMON NORMALS: normocephalic, atraumatic and hearing grossly normal bilaterally HEAD & SCALP: normocephalic and atraumatic Eye: COMMON NORMALS: Equal, round and reactive pupils present, EOMs intact bilaterally and conjunctivae normal CONJUNCTIVA: Yes conjunctivae normal PUPIL: Yes Equal, round and reactive pupils present Neck/C-Spine: COMMON NORMALS: full ROM and no JVD Lymph: LYMPHATIC: no lymphadenopathy noted Resp: COMMON NORMALS: normal respiratory effort, No retractions and No use of accessory muscles OTHER: Patient using 4 L by nasal cannula as is his typical baseline Cardio: COMMON NORMALS: no JVD and regular rate RATE: regular rate Extremity: NARRATIVE EXTREMITY EXAM: Patient has significant erythema of his left fourth toe with erythema noted to all toes and the distal foot. Patient has 3+ pitting edema to the foot and 2+ pitting edema to the distal left lower extremity. No signs of open weeping. Patient has a dark scabbing area noted to the dorsal aspect of the left fourth toe. Patient has a corn on his left fifth toe. Webspaces appeared generally unremarkable though he does have some maceration noted between the second and third left toes. Toenails are thickened and yellow. No signs of other ulcerated wounds or punctures to the bottom of the foot. Neuro: COMMON NORMALS: patient oriented x3 SENSORIUM/ORIENTATION: Yes alert Psych: COMMON NORMALS: mental status grossly normal, Normal thought process present, cooperative and normal affect THOUGHT PROCESS: Normal thought process present Skin: COMMON NORMALS: no rashes or lesions noted and turgor normal GENERAL SKIN EXAM: no rashes or lesions noted and turgor normal Course Vital Signs: Vital signs: Vital Signs Temperature 98.1 F 07/01/23 12:20 Pulse Rate 85 07/01/23 16:06 Respiratory Rate 20 H 07/01/23 16:06 Blood Pressure 131/77 07/01/23 16:06 Pulse Oximetry 94 07/01/23 16:06 Oxygen Delivery Me thod Nasal Cannula 07/01/23 16:00 Oxygen Flow Rate 4 07/01/23 16:00 MDM - Extremity (Nontraumatic) Medical Decision Making Patient's foot today is concerning for cellulitis. We did obtain an x-ray to look for any signs of underlying bony disruption concerning for an osteomyelitis however x-rays negative. We also performed an ultrasound of the left lower extremity to rule out acute DVT for sudden swelling in the left lower extremity but, was also negative. Patient has a minimally elevated white blood cell count and, considering his chronic issues, is otherwise stable. Patient does have elevated BNP but, have noted here in the past previous levels have been in the same range. Chest x-ray showed small bilateral-possible pleural effusions versus atelectasis. I did discuss the case with Dr. Farrar. As the patient is showing no signs of respiratory distress and does not complain of shortness of breath and has not required any increase in his oxygenation, do not think acute CHF exacerbation is necessarily the cause. Patient has no sepsis markers but a slightly elevated white blood cell count. After speaking with Dr. Solis, he thinks the patient is safe to discharge home on oral medications and to continue to monitor. Referral to wound care provided as this could take quite a while to heal given his diabetic status. Patient does have a director construction services and we recommended reaching out to them to be seen next week for recheck. However, went over strict return precautions for change or worsening in condition including any new onset difficulty to breathe, new onset cough, worsening edema to the left lower extremity, new onset right lower extremity edema, spreading redness from the left foot, new onset fever, or black/dusky discoloration of the toes. Patient verbalizes understanding and agreement to treatment plan. Differential Diagnosis Likely cellulitis and lower extremity edema; Unlikely herpes zoster, gout, superficial thrombophlebitis or deep vein thrombosis of lower extremity Lab Data 07/01/23 13:17 07/01/23 13:17 Laboratory Results WBC 12.69 10^3/uL (3.29-11.43) H 07/01/23 13:17 RBC 3.74 10^6/uL (3.85-5.65) L 07/01/23 13:17 Hgb 11.20 g/dL (11.27-16.99) L 07/01/23 13:17 Hct 36.2 % (37-53) L 07/01/23 13:17 MCV 96.8 fl (82-101) 07/01/23 13:17 MCH 29.9 pg (27-33) 07/01/23 13:17 MCHC 30.9 g/dL (30-55) 07/01/23 13:17 RDW 16.8 % (12.1-15.1) H 07/01/23 13:17 Plt Count 190 10^3/cmm (157-399) 07/01/23 13:17 MPV 10.0 fL (7.4-10.4) 07/01/23 13:17 Neut % (Auto) 79.9 % 07/01/23 13:17 Lymph % (Auto) 7.8 % 07/01/23 13:17 [place] % (Auto) 11.1 % 07/01/23 13:17 Eos % (Auto) 0.2 % 07/01/23 13:17 Baso % (Auto) 0.5 % 07/01/23 13:17 Neut # (Auto) 10.14 10^3/uL (1.8-7.7) H 07/01/23 13:17 Lymph # (Auto) 1.0 10^3/uL (0.8-4.8) 07/01/23 13:17 [place] # (Auto) 1.4 10^3/uL (0.2-0.9) H 07/01/23 13:17 Eos # (Auto) 0.0 10^3/uL (0.0-0.8) 07/01/23 13:17 Baso # (Auto) 0.1 10^3/uL (0.0-0.1) 07/01/23 13:17 Nucleated RBC % (auto) 0 % 07/01/23 13:17 Nucleated RBCs # 0.0 /100WBC 07/01/23 13:17 ESR 72 mm/hr (0-10) H 07/01/23 13:17 Sodium 141 mmol/L (136-145) 07/01/23 13:17 Potassium 4.2 mmol/L (3.5-5.1) 07/01/23 13:17 Chloride 97 mmol/L (98-107) L 07/01/23 13:17 Carbon Dioxide 27 mmol/L (22-29) 07/01/23 13:17 Anion Gap 21.2 (5-19) H 07/01/23 13:17 BUN 15 mg/dL (8-23) 07/01/23 13:17 Creatinine 2.7 mg/dL (0.7-1.2) H 07/01/23 13:17 GFR Calculation Not Reportable 07/01/23 13:17 Glucose 93 mg/dL (65-115) 07/01/23 13:17 Calculated Osmolality 293 mOsm/kg (285-295) 07/01/23 13:17 Lactic Acid 2.2 mmol/L (0.5-2.2) 07/01/23 13:17 Calcium 9.7 mg/dL (8.5-10.5) 07/01/23 13:17 Total Bilirubin 1.0 mg/dL (0.15-1.2) 07/01/23 13:17 AST 20 U/L (0-40) 07/01/23 13:17 ALT 12 U/L (0-41) 07/01/23 13:17 Alkaline Phosphatase 85 U/L (40-130) 07/01/23 13:17 C-Reactive Protein 126.5 mg/L (0.0-4.9) H 07/01/23 13:17 NT-Pro-B Natriuret Pep 80572 pg/mL (0-450) H 07/01/23 13:17 Total Protein 8.0 g/dL (6.6-8.7) 07/01/23 13:17 Albumin 3.6 g/dL (3.5-5.2) 07/01/23 13:17 Globulin 4.4 g/dL (1.3-4.6) 07/01/23 13:17 Procalcitonin 0.22 ng/mL (0-0.5) 07/01/23 13:17 Urine Color Yellow (Yellow) 07/01/23 14:08 Urine Appearance Clear (CLEAR) 07/01/23 14:08 Urine pH 9 (5-7) H 07/01/23 14:08 Ur Specific [place] 1.015 (1.005-1.030) 07/01/23 14:08 Urine Protein 1+ (Negative) H 07/01/23 14:08 Urine Glucose (UA) 1+ (Normal) H 07/01/23 14:08 Urine Ketones Negative (Negative) 07/01/23 14:08 Urine Blood Neg (Negative) 07/01/23 14:08 Urine Nitrate Negative (Negative) 07/01/23 14:08 Urine Bilirubin Neg (Negative) 07/01/23 14:08 Prot Sulfosalicylic Acd Positive (Negative) 07/01/23 14:08 Urine Urobilinogen Norm mg/dL (Negative) 07/01/23 14:08 Ur Leukocyte Esterase Negative (Negative) 07/01/23 14:08 Urine RBC 0-4 /hpf (0-2) H 07/01/23 14:08 Urine WBC None /hpf (0-5) 07/01/23 14:08 Ur Squamous Epith Cells None /hpf (0-5) 07/01/23 14:08 Amorphous Sediment Trace /hpf 07/01/23 14:08 Urine Bacteria None /hpf (NONE) 07/01/23 14:08 All radiology interpretation(s) finalized by discharge Discharge Plan Discharge Patient Disposition: Home Clinical Impression: Diabetic foot ulcer, Cellulitis in diabetic foot, Edema, pitting Condition: Stable Prescriptions: New doxycycline hyclate 100 mg tablet 100 mg PO BID 10 Days Qty: 20 0RF No Action atorvastatin 80 mg tablet 80 mg PO DAILY@1800 Mircera 30 mcg/0.3 mL syringe 60 mcg SUBCUT Q14D gabapentin 300 mg capsule 300 mg PO BID@,18 sevelamer carbonate [Renvela] 800 mg tablet 2,400 mg PO TID@,,18 albuterol sulfate 90 mcg/actuation HFA aerosol inhaler 2 puff inhalation Q6H PRN (Reason: shortness of breath or wheezing) 30 Days Qty: 8.5 3RF famotidine [Pepcid] 20 mg tablet 20 mg PO BID@,18 Saxenda 3 mg/0.5 mL (18 mg/3 mL) pen injector 3 mg SUBCUT DAILY PRN (Reason: weight loss) cholecalciferol (vitamin D3) 50 mcg (2,000 unit) capsule 50 mcg PO QAM Daliresp 250 mcg tablet 500 mcg PO QAM spironolactone 50 mg tablet 50 mg PO DAILY@09 Qty: 90 1RF (DME) Diabetic Shoes with 3 Custom Inserts See Rx Instructions .Route .MEDSUPPLY Qty: 1 0RF Rx Instructions: As directed isosorbide mononitrate 30 mg tablet extended release 24 hr 15 mg PO BID Qty: 90 3RF allopurinol 100 mg Tablet 100 mg PO DAILY PRN (Reason: Gout) oxycodone-acetaminophen 5-325 mg Tablet 1 tab PO BEDTIME Rx Instructions: May also take 1/2 tab prn docusate sodium 100 mg Capsule 200 mg PO BID@,18 insulin glargine [Lantus U-100 Insulin] 100 unit/mL Solution 35 unit SUBCUT QAM Stiolto Respimat 2.5-2.5 mcg/actuation mist 2 puff inhalation QAM albuterol sulfate 2.5 mg /3 mL (0.083 %) Solution For Nebulization 2.5 mg inhalation Q6H PRN (Reason: Shortness Of Breath) lidocaine-prilocaine 2.5-2.5 % Cream 1 applic topical TID PRN (Reason: Pain) carvedilol 6.25 mg tablet See Rx Instructions .ROUTE .COMPLEX Rx Instructions: 6.25mg (1 tab) in AM & 3.125mg (0.5 tab) in PM furosemide 40 mg tablet 40 mg PO QAM cyclobenzaprine 10 mg Tablet 10 mg PO TID PRN (Reason: Muscle Spasm) carboxymethylcellulose sodium 0.5 % Drops 1 drp OPHTHALMIC (EYE) QID PRN (Reason: Dry Eye(S)) polyethylene glycol 3350 17 gram/dose Powder 4 g PO DAILY PRN (Reason: Constipation) apixaban 5 mg tablet 5 mg PO BID omega-3 fatty acids 1,000 mg Capsule 1,000 mg PO BID@,18 cetirizine [Zyrtec] 10 mg Tablet 10 mg PO DAILY@18 ondansetron HCl 8 mg Tablet 4 mg PO Q6H PRN (Reason: Nausea And Vomiting) nitroglycerin [Nitrostat] 0.4 mg Tablet, Sublingual 0.4 mg SUBLINGUAL Q5M PRN (Reason: Chest Pain) Rx Instructions: do not exceed 3 doses per episode doxercalciferol 1 mcg Capsule 1 mcg PO .THREE TIMES A WEEK Brilinta 90 mg Tablet 90 mg PO BID RenaPlex 800 mcg- 12.5 mg Tablet 1 tab PO QAM Discharge Orders: Discharge ED (Routine); Ordered 07/01/23 Ordered By: Ashley Renee Referrals: Adria Artis, [Primary Care Provider] - Discharge Diet: Usual diet Discharge Activity: Increase activity as tolerated Patient Instructions: Foot Care for Diabetics, Diabetic Foot Ulcers (ED) Activity Restrictions/Additional Instructions: Lab work today appears stable without any acute worsening of kidney function or CHF. It does appear that you have signs of infection in your lab work but, on imaging, shows no signs of infiltration down into the level of the bone. Since we are still dealing with a superficial cellulitis, the doctor here agrees we can treat with outpatient oral antibiotics and close follow-up. I have requested a follow-up with wound care as diabetic foot wounds can be extremely difficult to heal. We would like you to have continued monitoring and follow-up. You may also contact your director construction services for follow-up as well. However, if you notice continued worsening swelling in the lower extremity including weeping from the skin or, development of similar edema now on the right side or, should you develop fever, spreading redness up the foot and leg or purple/dusky discoloration of the toes you need to return to the emergency department. Coding Level of Care Code ED Extruding Department Supervisor for Aurelia Chaudhari
[2023-07-01] MEDS: HYDROcodone-acetaminophen 5-325 mg Tablet 1 TAB PO (13:31)
[2023-07-01 13:33] LABS: Basophils # 0.1 10^3/uL (0.0-0.1); Basophils % 0.5 %; Eosinophils % 0.2 %; Hematocrit 36.2 % (37-53); Lymphocytes % 7.8 %; Mean Corpuscular HGB Conc 30.9 g/dL (30-55); Mean Corpuscular Hemoglobin 29.9 pg (27-33); Mean Corpuscular Volume 96.8 fl (82-101); Monocytes # 1.4 10^3/uL (0.2-0.9); Monocytes % 11.1 %; Neutrophils # 10.14 10^3/uL (1.8-7.7); Neutrophils % 79.9 %; Nucleated Red Blood Cells % 0 %; Platelet Count 190 10^3/cmm (157-399); Red Blood Count 3.74 10^6/uL (3.85-5.65); Red Cell Distribution Width 16.8 % (12.1-15.1); White Blood Count 12.69 10^3/uL (3.29-11.43)
[2023-07-01 13:43] LABS: Erythrocyte Sedimentation Rate 72 mm/hr (0-10)
[2023-07-01 13:57] LABS: Lactic Sepsis W/Reflex 2.2 mmol/L (0.5-2.2)
[2023-07-01 14:08] LABS: Procalcitonin 0.22 ng/mL (0-0.5)
[2023-07-01 14:19] LABS: Alanine Aminotransferase 12 U/L (0-41); Albumin Level 3.6 g/dL (3.5-5.2); Alkaline Phosphatase 85 U/L (40-130); Blood Urea Nitrogen 15 mg/dL (8-23); C Reactive Protein 126.5 mg/L (0.0-4.9); Calcium 9.7 mg/dL (8.5-10.5); Carbon Dioxide 27 mmol/L (22-29); Chloride 97 mmol/L (98-107); Globulin 4.4 g/dL (1.3-4.6); Glucose 93 mg/dL (65-115); Osmolality Calculated 293 mOsm/kg (285-295); Sodium 141 mmol/L (136-145)
[2023-07-01 14:22] LABS: Anion Gap 21.2 (5-19); Potassium 4.2 mmol/L (3.5-5.1)
[2023-07-01 14:23] LABS: Aspartate Amino Transferase 20 U/L (0-40)
[2023-07-01 14:37] LABS: Add Urine Microscopic? YES; Amorphous Sediment Urine TRACE /hpf; Bilirubin Urine Neg (Negative); Blood Urine Neg (Negative); Glucose Urine UA 1+ (Normal); Ketones Urine Negative (Negative); Leukocyte Esterase Urine Negative (Negative); Nitrate Urine Negative (Negative); Protein Urine 1+ (Negative); RBC Urine 0-4 /hpf (0-2); Specific Gravity, Urine 1.015 (1.005-1.030); Sulfosalicylic Acid Urine Positive (Negative); Urine Appearance Clear (CLEAR); Urine Color Yellow (Yellow); Urobilinogen Urine Norm (Negative); pH Urine 9 (5-7)
[2023-07-01 15:16] LABS: Reflex Lactate Order REFLEX LACTIC ORDERD
[2023-07-01 16:00] VITALS: BP 131/77; PULSE 85; RESP 20; O2SAT 94
[2023-07-01 16:06] VITALS: BP 131/77; PULSE 85; RESP 20; O2SAT 94
--- NOTE | 2023-07-01 17:34 | DCPLANNER ---
Referral was sent to wound care clinic at 1735 on 07/01/23. Clinic to contact patient
[2023-07-02 11:45] LABS: Acinetobacter baumannii Not Detected (NOT DETECT); Bacteroides fragilis Not Detected (NOT DETECT); Citrobacter Not Detected (NOT DETECT); Cronobacter sakazakii Not Detected (NOT DETECT); Enterobacter cloacae complex Not Detected (NOT DETECT); Enterobacter non cloacae Not Detected (NOT DETECT); Fusobacterium necrophorum Not Detected (NOT DETECT); Fusobacterium nucleatum Not Detected (NOT DETECT); Haemophilus influenzae Not Detected (NOT DETECT); Klebsiella pneumoniae group Not Detected (NOT DETECT); Morganella morganii Not Detected (NOT DETECT); Neisseria meningitidis Not Detected (NOT DETECT); Pan Candida Not Detected (NOT DETECT); Pan Gram-Positive Not Detected (NOT DETECT); Proteus mirabilis Not Detected (NOT DETECT); Pseudomonas aeruginosa Not Detected (NOT DETECT); Salmonella Not Detected (NOT DETECT); Serratia Not Detected (NOT DETECT); Serratia marcescens Not Detected (NOT DETECT); Stenotrophomonas maltophilia Not Detected (NOT DETECT)
== END 2023-07-01 16:27 | disposition home or self-care (01) ==
PROVIDERS: Emergency Provider Physician Assistant; PCP Emergency Medicine Emergency Medical Services
DX: E11.621 Type 2 diabetes mellitus with foot ulcer (principal); L03.116 Cellulitis of left lower limb; R60.0 Localized edema; Z79.4 Long term (current) use of insulin; Z87.891 Personal history of nicotine dependence; I25.10 Atherosclerotic heart disease of native coronary artery without angina pectoris; E11.22 Type 2 diabetes mellitus with diabetic chronic kidney disease; I13.2 Hypertensive heart and chronic kidney disease with heart failure and with stage 5 chronic kidney disease, or end stage renal disease; I50.9 Heart failure, unspecified; N18.6 End stage renal disease; I25.2 Old myocardial infarction; Z95.0 Presence of cardiac pacemaker
CPT/HCPCS: 36415; 71045; 73660; 80053; 81001; 83605; 83880; 84145; 85025; 85651; 86140; 87040; 93971; 99285

== ENCOUNTER 2023-07-03 10:38 | Inpatient (IN) | payer OTHER, SELFPAY ==
[2023-07-03] VITALS (8 sets, daily range): BP systolic 102–168; BP diastolic 57–83; PULSE 60–85; RESP 15–20; TEMP 36.5–36.9; O2SAT 92–100; BMI 38.2
--- NOTE | 2023-07-03 10:47 | ECG_ITS ---
[facility] Test Date: 2023-07-03 Pat Name: Shon Mullen Department: Room: Gender: Male Director Software: : 1945 Requested By: Edgardo Espinoza Order Number: [id number] Dwight MD: Anne Mendoza M.D. Measurements Intervals [place] Rate: 65 P: 0 [place]: 0 QRS: -76 QRSD: 196 T: 101 QT: 490 QTc: 511 Interpretive Statements Atrial fibrillation with demand ventrocular pacing Compared to ECG 06/20/2023 12:02:25 Indeterminate axis no longer present Right bundle-branch block no longer present Left posterior fascicular block no longer present T-wave abnormality no longer present Possible ischemia no longer present Electronically Signed On 07-04-2023 10:31:20 CDT by Anne Mendoza M.D. [id number]
--- NOTE | 2023-07-03 11:00 | W.ED.RECABL ---
HPI - Recheck/Abnormal Lab/Rx General: Chief Complaint: Recheck/Abnormal Lab/Rx Stated Complaint: labs was not good Time Seen by Provider: 07/03/23 10:47 Source: patient Mode of arrival: ambulatory History of Present Illness: 78-year-old male presents to the emergency room. He was seen with cellulitis 2 days ago preliminary blood culture came back positive with gram-negative letitia. he was contacted and asked to return to the emergency room. When his initially his white count was 12 6. He was discharged home on doxycycline. MD complaint: abnormal lab Initial visit (ago): day(s) (2) Initial visit for: cellulitis Returns today for: other (Positive blood culture) Symptoms since prior visit: worsening swelling and worsening redness Review of Systems Const: Denies: fever(s) or chills Card: Denies: chest pain Resp: Denies: dyspnea GI: Denies: abdominal pain : Denies: dysuria, urinary frequency or urinary urgency Musc: Denies: neck pain or back pain Skin/Breast: Denies: rash PFSH ED PFSH: Medical History Accelerated essential hypertension Anemia Atrial fibrillation CAD (coronary artery disease) CHF (congestive heart failure) Chronic anticoagulation Diabetes mellitus ESRD (end stage renal disease) Heart failure Hypercholesteremia LV dysfunction Myocardial infarct Neuropathy NSTEMI (non-ST elevated myocardial infarction) MARAL (obstructive sleep apnea) Pacemaker Pneumonia Renal failure Respiratory failure with hypoxia Restrictive lung disease Small airways disease Surgical History Hemodialysis access, AV graft History of colonoscopy with polypectomy 2020 Peritoneal dialysis status (03/02/21) removed S/P cardiac pacemaker procedure S/P cataract surgery S/P dialysis catheter insertion S/P PTCA (percutaneous transluminal coronary angioplasty) Family History Mother Heart disease Social History Smoking and tobacco/nicotine status: former use of tobacco/nicotine Quit status (tobacco/nicotine): has quit using Year quit tobacco: 1984 Former quit date comment: 3PPD x 17 Years Second hand smoke exposure: No Alcohol intake: never Substance/Drug Use: never Lives independently: Yes Household members: spouse Housing: House Marital status: service: Yes Current occupational status: retired Pets and animals: No Do you think of yourself as: Straight/Heterosexual Current gender identity: Male Physical Exam Const: GENERAL APPEARANCE: cooperative and comfortable ORIENTATION/CONSCIOUSNESS: Yes awake, Yes oriented to person, Yes oriented to place and Yes oriented to time HENMT: COMMON NORMALS: normocephalic, atraumatic and hearing grossly normal bilaterally HEAD & SCALP: normocephalic and atraumatic Resp: COMMON NORMALS: normal respiratory effort, No retractions, No use of accessory muscles and clear to auscultation bilaterally AUSCULTATION: clear to auscultation bilaterally Cardio: COMMON NORMALS: regular rate, regular rhythm and No murmurs present (Cardio) RATE: regular rate RHYTHM: regular rhythm GI: COMMON NORMALS: Soft to palpation and No hepatosplenomegaly present AUSCULTATION: Yes normoactive bowel sounds PALPATION: Yes Soft to palpation, No Tenderness to palpation present (GI), No Guarding due to palpation present (GI) and Yes No hepatosplenomegaly present Extremity: OTHER: Redness and erythema of the left lower extremity spreading proximally. There is some eschared sores on the PIP joints of the third and fourth toes. No evidence of abscess at this time no fluctuance or drainage skin is indurated and tender. Neuro: SENSORIUM/ORIENTATION: Yes oriented to person, Yes oriented to place and Yes oriented to time Skin: COMMON NORMALS: no rashes or lesions noted GENERAL SKIN EXAM: no rashes or lesions noted Course Vital Signs: Vital signs: Vital Signs Temperature 98.5 F 07/03/23 15:32 Pulse Rate 60 07/03/23 13:33 Respiratory Rate 18 07/03/23 15:32 Blood Pressure 122/62 07/03/23 15:32 Pulse Oximetry 96 07/03/23 15:54 Oxygen Delivery Me thod Nasal Cannula 07/03/23 15:54 Oxygen Flow Rate 4 07/03/23 15:54 MDM - Recheck/Abnormal Lab/Rx Medical Decision Making Gram-negative letitia on preliminary blood culture from visit 2 days ago. Repeat cultures done started on Vanco and Zosyn admit discussed with hospitalist orders written Lab Data 07/03/23 11:36 07/03/23 10:55 Radiology Impressions Duplex Scan Lower Extremity Artery 07/03/23 11:22 IMPRESSION: 1. No sign of hemodynamically significant arterial stenosis to the level of the popliteal artery in the left lower extremity. 2. Probable multifocal infrapopliteal arterial stenosis. Posterior tibial and dorsalis pedis arteries were interrogated. There is minimal low velocity flow in the posterior tibial artery. Dorsalis pedis artery is patent. 3. Irregular cardiac rhythm. Venous Duplex 07/03/23 11:22 IMPRESSION: No evidence of deep vein thrombosis. Laboratory Results WBC Cancelled 07/03/23 10:55 Corrected WBC Cancelled 07/03/23 10:55 RBC Cancelled 07/03/23 10:55 Hgb Cancelled 07/03/23 10:55 Hct Cancelled 07/03/23 10:55 MCV Cancelled 07/03/23 10:55 MCH Cancelled 07/03/23 10:55 MCHC Cancelled 07/03/23 10:55 RDW Cancelled 07/03/23 10:55 Plt Count Cancelled 07/03/23 10:55 MPV Cancelled 07/03/23 10:55 Gran % Cancelled 07/03/23 10:55 Neut % (Auto) Cancelled 07/03/23 10:55 Lymph % (Auto) Cancelled 07/03/23 10:55 [place] % (Auto) Cancelled 07/03/23 10:55 Eos % (Auto) Cancelled 07/03/23 10:55 Baso % (Auto) Cancelled 07/03/23 10:55 Neut # (Auto) Cancelled 07/03/23 10:55 Lymph # (Auto) Cancelled 07/03/23 10:55 [place] # (Auto) Cancelled 07/03/23 10:55 Eos # (Auto) Cancelled 07/03/23 10:55 Baso # (Auto) Cancelled 07/03/23 10:55 Absolute Gran (auto) Cancelled 07/03/23 10:55 Nucleated RBC % (auto) Cancelled 07/03/23 10:55 Nucleated RBCs # Cancelled 07/03/23 10:55 Sodium 133 mmol/L (136-145) L 07/03/23 10:55 Potassium 4.2 mmol/L (3.5-5.1) 07/03/23 10:55 Chloride 95 mmol/L (98-107) L 07/03/23 10:55 Carbon Dioxide 24 mmol/L (22-29) 07/03/23 10:55 Anion Gap 18.2 (5-19) 07/03/23 10:55 BUN 35 mg/dL (8-23) H 07/03/23 10:55 Creatinine 5.0 mg/dL (0.7-1.2) H 07/03/23 10:55 GFR Calculation Not Reportable 07/03/23 10:55 Glucose 108 mg/dL (65-115) 07/03/23 10:55 Calculated Osmolality 285 mOsm/kg (285-295) 07/03/23 10:55 Lactic Acid 1.5 mmol/L (0.5-2.2) 07/03/23 11:03 Calcium 9.5 mg/dL (8.5-10.5) 07/03/23 10:55 Total Bilirubin 0.7 mg/dL (0.15-1.2) 07/03/23 10:55 AST 18 U/L (0-40) 07/03/23 10:55 ALT 10 U/L (0-41) 07/03/23 10:55 Alkaline Phosphatase 78 U/L (40-130) 07/03/23 10:55 Total Protein 7.5 g/dL (6.6-8.7) 07/03/23 10:55 Albumin 3.0 g/dL (3.5-5.2) L 07/03/23 10:55 Globulin 4.5 g/dL (1.3-4.6) 07/03/23 10:55 Vitamin B12 969 pg/mL (232-1245) 07/03/23 10:55 Procalcitonin 0.40 ng/mL (0-0.5) 07/03/23 10:55 TSH 1.71 uIU/mL (0.27-4.20) 07/03/23 10:55 All radiology interpretation(s) finalized by discharge Discharge Plan Discharge Patient Disposition: Admitted As Inpatient Admit Provider: Renetta Harvey Clinical Impression: Cellulitis Condition: Stable Coding Level of Care Code ED Cardiac Cath Lab Manager for Chg Watson
[2023-07-03] MEDS: piperacillin-tazobactam 3.375 GM in sodium chloride 0.9% (plus) 50 ML IV ×2 (11:21→23:21)
--- NOTE | 2023-07-03 11:22 | USR_ITS ---
PROCEDURE INFORMATION: Exam: US Duplex Left Lower Extremity Arteries Or Arterial Bypass Grafts Exam date and time: 07/03/2023 12:10 PM Age: 78 years old Clinical indication: Pain; Leg, lower; Left; Additional info: Cellulistis TECHNIQUE: Imaging protocol: Left Real-time duplex scan of the arteries or arterial bypass grafts of the left lower extremity with 2-D sanchez scale, color Doppler flow and spectral waveform analysis. Images documented and saved. COMPARISON: US CV venous duplex [facility] [id number] 07/03/2023 11:56 AM FINDINGS: Left external iliac artery: No visible stenosis. Normal waveform. Peak velocity 85 cm/s. Left common femoral artery: No visible stenosis. Normal waveform. Peak velocity 96 cm/s. Left superficial femoral artery: No visible stenosis. Normal waveform. Peak velocity 108 cm/s. Left popliteal artery: No visible stenosis. Normal waveform. Peak velocity 41 cm/s. Left calf/foot arteries: Calcific plaque in the posterior tibial and dorsalis pedis arteries. Minimal low velocity flow detected in the posterior tibial artery. Mildly abnormal monophasic waveform in the posterior tibial and dorsalis pedis artery. Dorsalis pedis artery is patent. Other findings: Intermittently irregular cardiac rhythm. Ankle brachial index was attempted. Measured posterior tibial artery pressure is greater than 200 mmHg, consistent with decreased vascular compliance due to calcific plaque. US/[place] [id number] IMPRESSION: 1. No sign of hemodynamically significant arterial stenosis to the level of the popliteal artery in the left lower extremity. 2. Probable multifocal infrapopliteal arterial stenosis. Posterior tibial and dorsalis pedis arteries were interrogated. There is minimal low velocity flow in the posterior tibial artery. Dorsalis pedis artery is patent. 3. Irregular cardiac rhythm.
--- NOTE | 2023-07-03 11:22 | USR_ITS ---
PROCEDURE INFORMATION: Exam: US Duplex Lower Extremity Veins, Bilateral Exam date and time: 07/03/2023 11:56 AM Age: 78 years old Clinical indication: Edema, localized; Lower extremity, bilateral; Additional info: Leg swelling TECHNIQUE: Imaging protocol: Real-time duplex ultrasound of the bilateral extremities with 2-D sanchez scale, color Doppler flow and spectral waveform analysis including responses to compression and other maneuvers (when performed) with image documentation. Complete exam focused on the lower extremity veins. COMPARISON: US renal BI* [id number] 08/12/2021 4:20 PM FINDINGS: Right deep veins: Unremarkable. The common femoral, femoral, proximal profunda femoral and popliteal veins are patent without thrombus. Normal Doppler waveforms. Normal compressibility and/or augmentation response. Left deep veins: Unremarkable. The common femoral, femoral, proximal profunda femoral and popliteal veins are patent without thrombus. Normal Doppler waveforms. Normal compressibility and/or augmentation response. Superficial veins: Bilateral saphenofemoral junctions are patent without thrombus. Soft tissues: Unremarkable. US/[place] [id number] IMPRESSION: No evidence of deep vein thrombosis.
[2023-07-03 11:33] LABS: Alanine Aminotransferase 10 U/L (0-41); Alkaline Phosphatase 78 U/L (40-130); Blood Urea Nitrogen 35 mg/dL (8-23); Calcium 9.5 mg/dL (8.5-10.5); Carbon Dioxide 24 mmol/L (22-29); Chloride 95 mmol/L (98-107); Globulin 4.5 g/dL (1.3-4.6); Glucose 108 mg/dL (65-115); Osmolality Calculated 285 mOsm/kg (285-295); Sodium 133 mmol/L (136-145); Total Bilirubin 0.7 mg/dL (0.15-1.2); Total Protein 7.5 g/dL (6.6-8.7)
[2023-07-03 11:34] LABS: Lactic Sepsis W/Reflex 1.5 mmol/L (0.5-2.2)
[2023-07-03 11:49] LABS: Basophils # 0.1 10^3/uL (0.0-0.1); Basophils % 0.5 %; Eosinophils # 0.2 10^3/uL (0.0-0.8); Eosinophils % 1.4 %; Hematocrit 30.3 % (37-53); Lymphocytes # 1.1 10^3/uL (0.8-4.8); Lymphocytes % 9.5 %; Mean Corpuscular HGB Conc 30.4 g/dL (30-55); Mean Corpuscular Hemoglobin 30.6 pg (27-33); Mean Corpuscular Volume 100.7 fl (82-101); Monocytes # 1.2 10^3/uL (0.2-0.9); Monocytes % 10.7 %; Neutrophils # 8.58 10^3/uL (1.8-7.7); Neutrophils % 77.4 %; Nucleated Red Blood Cells % 0 %; Platelet Count 153 10^3/cmm (157-399); Red Blood Count 3.01 10^6/uL (3.85-5.65); Red Cell Distribution Width 16.7 % (12.1-15.1); White Blood Count 11.08 10^3/uL (3.29-11.43)
[2023-07-03 11:49] LABS: Anion Gap 18.2 (5-19); Aspartate Amino Transferase 18 U/L (0-40); Potassium 4.2 mmol/L (3.5-5.1)
[2023-07-03] MEDS: vancomycin 1,000 MG in sodium chloride 0.9% 250 ML 250 MG IV ×2 (12:04→16:38)
--- NOTE | 2023-07-03 15:00 | P.HP_ITS ---
Providers/Chief Complaint Admitting Physician: Renetta Harvey MD Primary Care Provider: Adria Artis DO Chief Complaint: labs was not good History of Present Illness Shon Mullen is a 78 year old male with past medical history of CAD, COPD on nasal cannula 4 L, end-stage renal disease on hemodialysis, type 2 diabetes mellitus, congestive and diastolic heart failure, atrial fibrillation on chronic anticoagulation with Eliquis. As per patient he had gone in his third toe of left foot on Tuesday which he pulled out after which he started having intense pain in the foot. He had some drainage through the wound which is mildly purulent on Tuesday in the evening he had developed redness at the foot. Since then he presented to the ER on 07/01 and he was discharged home on oral doxycycline. Blood cultures were drawn and that was to the ER which were found to be positive for gram-negative rods today hence he was called back into the ER. As per patient his pain seems to be slightly improving. He denies of any other constitutional symptoms. Review of Systems General: Reports: 10 or more systems reviewed and unremarkable except in HPI and below Const: Denies: fever(s), chills, body aches, change in appetite, change in weight, malaise, night sweats, diaphoresis, change in sleep pattern, daytime sleepiness or snoring Eyes: Denies: change in vision, blurry vision, photophobia, eye discomfort or eye discharge ENMT: Denies: throat pain, enlarged tonsils, hoarseness, mouth pain, oral sores, dry mouth, tinnitus, nasal congestion or post nasal drip Card: Denies: chest pain, palpitations, irregular heart rhythm, edema, swelling of feet/ankles, lightheadedness, syncope, pre-syncope, dyspnea on exertion, orthopnea, leg pain with exertion or acrocyanosis Resp: Denies: dyspnea, productive cough, non-productive cough, wheezing, stri jadyn, pain on inspiration, change in phlegm color, hemoptysis or chest congestion GI: Denies: abdominal pain, nausea, vomiting, hematemesis, coffee ground emesis, dysphagia, heartburn, diarrhea, constipation, bloating, GI cramping, change in bowel habits, pain on defecation, hematochezia or melena : Denies: flank pain, difficulty urinating, dysuria, urinary frequency, urinary urgency, urinary hesitancy, urinary dribbling, difficulty starting urination, change in urine stream, nocturia or hematuria Musc: Denies: neck pain, back pain, extremity pain, joint pain, joint swelling, joint redness, joint stiffness or limited range of motion Neuro: Denies: headache(s), numbness in extremities, weakness in extremities, sensory changes, lack of coordination, difficulty walking, frequent falls, dizziness, vertigo, confusion, Slurred speech present, difficulty communicating thoughts or seizure-like activity Psych: Denies: anxiety, depression, mood swings, panic attacks, hopelessness or irritability Endo: Denies: polyuria, polydipsia, tired all the time, cold intolerance, excessive sweating, flushing or heat intolerance Nas/Lymph: Denies: easy bruising or easy bleeding All/Imm: Denies: tongue swelling, facial swelling or acute wheezing Medications/Allergies Home Medications Medication Instructions Recorded Confirmed Last Taken Type atorvastatin 80 mg tablet 80 mg PO DAILY@1800 10/02/19 07/03/23 07/02/23 History epoetin beta, methoxy peg 30 60 mcg SUBCUT Q14D 11/07/19 07/03/23 07/03/21 History mcg/0.3 mL injection syringe (Mircera) gabapentin 300 mg capsule 300 mg PO BID@,11/07/19 07/03/23 07/03/23 History sevelamer carbonate 800 mg tablet 2,400 mg PO TID@09,,11/07/19 07/03/23 07/03/23 History (Renvela) famotidine 20 mg tablet (Pepcid) 20 mg PO BID@,04/16/20 07/03/23 07/03/23 History liraglutide (weight loss) 3 mg/0.5 3 mg SUBCUT DAILY PRN weight loss 04/16/20 07/03/23 06/20/23 History mL (18 mg/3 mL) subcut pen injector (Saxenda) docusate sodium 100 mg capsule 200 mg PO BID@09,18 09/17/20 07/03/23 07/03/23 History allopurinol 100 mg tablet 100 mg PO DAILY PRN Gout 11/11/20 07/03/23 06/30/23 History oxycodone-acetaminophen 5 mg-325 1 tab PO BEDTIME 11/11/20 07/03/23 07/02/23 History mg tablet albuterol sulfate 90 mcg/actuation 2 puff inhalation Q6H PRN 01/02/21 07/03/23 02/23/21 Rx aerosol inhaler shortness of breath or wheezing 30 days #8.5 grams albuterol sulfate 2.5 mg/3 mL 2.5 mg inhalation Q6H PRN 07/13/21 07/03/23 06/30/23 History (0.083 %) solution for nebulization Shortness Of Breath insulin glargine 100 unit/mL 35 unit SUBCUT QAM 07/13/21 07/03/23 06/30/23 Hist ory subcutaneous solution (Lantus U-100 Insulin) lidocaine-prilocaine 2.5 %-2.5 % 1 applic topical TID PRN Pain 07/13/21 07/03/23 03/21/23 History topical cream tiotropium 2.5 mcg-olodaterol 2.5 2 puff inhalation QAM 07/13/21 07/03/23 07/03/23 History mcg/actuation mist for inhalation (Stiolto Respimat) isosorbide mononitrate 30 mg 15 mg PO BID #90 tabs 08/05/21 07/03/23 07/03/23 Rx tablet,extended release 24 hr cholecalciferol (vitamin D3) 50 50 mcg PO QAM 11/11/21 07/03/23 07/03/23 History mcg (2,000 unit) capsule cetirizine 10 mg tablet (Zyrtec) 10 mg PO DAILY@18 04/26/22 07/03/23 07/02/23 History doxercalciferol 1 mcg capsule 1 mcg PO .THREE TIMES A WEEK 04/26/22 07/03/23 03/21/23 History nitroglycerin 0.4 mg sublingual 0.4 mg sublingual Q5M PRN Chest 04/26/22 07/03/23 Unknown History tablet (Nitrostat) Pain omega-3 fatty acids 1,000 mg 1,000 mg PO BID@09,18 04/26/22 07/03/23 07/03/23 History capsule ondansetron HCl 8 mg tablet 4 mg PO Q6H PRN Nausea And Vomiting 04/26/22 07/03/23 03/18/23 History ticagrelor 90 mg tablet (Brilinta) 90 mg PO BID 04/26/22 07/03/23 07/03/23 History roflumilast 250 mcg tablet 500 mcg PO QAM 06/18/22 07/03/23 07/03/23 History (Daliresp) spironolactone 50 mg tablet 50 mg PO DAILY@09 #90 tabs 06/18/22 07/03/23 07/03/23 Rx Diabetic Shoes with 3 Custom #1 ea 01/04/23 07/03/23 Unknown Rx Inserts vitamin B complex with vit C-folic 1 tab PO QAM 03/07/23 07/03/23 07/03/23 History acid 800 mcg-zinc 12.5 mg tablet (RenaPlex) carvedilol 6.25 mg tablet See Rx Instructions .Route .COMPLEX 03/21/23 07/03/23 07/03/23 History furosemide 40 mg tablet 40 mg PO QAM 06/20/23 07/03/23 07/03/23 History apixaban 5 mg tablet 5 mg PO BID 07/01/23 07/03/23 07/03/23 History carboxymethylcellulose sodium 0.5 1 drp ophthalmic (eye) QID PRN Dry 07/01/23 07/03/23 Unknown History % eye drops Eye(S) cyclobenzaprine 10 mg tablet 10 mg PO TID PRN Muscle Spasm 07/01/23 07/03/23 Unknown History doxycycline hyclate 100 mg tablet 100 mg PO BID 10 days #20 tabs 07/01/23 07/03/23 07/03/23 Rx polyethylene glycol 3350 17 4 g PO DAILY PRN Constipation 07/01/23 07/03/23 06/30/23 History gram/dose oral powder Allergies Allergy/AdvReac Type Severity Reaction Status Date / Time ciprofloxacin [From Cipro] Allergy rash Verified 07/01/23 13:46 felodipine Allergy rash Verified 07/01/23 13:46 sulfamethoxazole Allergy rash Verified 07/01/23 13:46 [From Mayra] trimethoprim [From ] Allergy rash Verified 07/01/23 13:46 PFSH Acute PFSH: Medical History Accelerated essential hypertension Anemia Atrial fibrillation CAD (coronary artery disease) CHF (congestive heart failure) Chronic anticoagulation Diabetes mellitus ESRD (end stage renal disease) Heart failure Hypercholesteremia LV dysfunction Myocardial infarct Neuropathy NSTEMI (non-ST elevated myocardial infarction) MARAL (obstructive sleep apnea) Pacemaker Pneumonia Renal failure Respiratory failure with hypoxia Restrictive lung disease Small airways disease Surgical History Hemodialysis access, AV graft History of colonoscopy with polypectomy 2020 Peritoneal dialysis status (03/02/21) removed S/P cardiac pacemaker procedure S/P cataract surgery S/P dialysis catheter insertion S/P PTCA (percutaneous transluminal coronary angioplasty) Family History Mother Heart disease Social History Smoking and tobacco/nicotine status: former use of tobacco/nicotine Quit status (tobacco/nicotine): has quit using Year quit tobacco: 1984 Former quit date comment: 3PPD x 17 Years Second hand smoke exposure: No Alcohol intake: never Substance/Drug Use: never Lives independently: Yes Household members: spouse Housing: House Marital status: service: Yes Current occupational status: retired Pets and animals: No Do you think of yourself as: Straight/Heterosexual Current gender identity: Male Vitals/I&O/Wt Last Vital Signs Temp 97.7 F 07/03/23 10:48 Pulse 60 07/03/23 13:33 Resp 16 07/03/23 13:33 BP 125/65 07/03/23 13:33 Pulse Ox 98 07/03/23 13:33 O2 Del Method Nasal Cannula 07/03/23 11:09 O2 Flow Rate 4 07/03/23 11:09 07/03/23 07/03/23 07/03/23 06:59 14:59 22:59 Intake Total 300 / 300 Balance 300 / 300 Weight last 48 hrs Weight 121.109 kg Physical Exam Narrative: EXAM NARRATIVE: General: No acute distress, AO x3, NC oxygen supplementation HEENT: PERRLA, pupils bilaterally equal and reactive Chest:Bronchial breath sounds b/l ,decreased air entry, equal good air entry bilaterally, no more fine basal crackles CVS: S1-S2 regular, no murmurs, no tachycardia, no gallops, no rubs Abdomen: Soft, nontender, no organomegaly, bowel sounds present, morbidly obese Neuro: No focal deficits, no facial deformity, AO x3, power 5/5 in all limbs Skin: OTHER: Data 07/03/23 11:36 07/03/23 10:55 Micro: Microbiology 07/03/23 11:03 Blood Culture - Preliminary Blood SPECIMEN COLLECTED 07/03/23 10:55 Blood Culture - Preliminary Blood SPECIMEN COLLECTED A&P Assessment and plan (1) Gram-negative bacteremia: Most likely in setting of cellulitis of leg. Repeat blood cultures. Start on vancomycin, Zosyn. Will de-escalate as per culture sensitivities. Patient will need 14 days of IV antibiotics from first negative blood cultures. (2) Diabetic foot ulcer: Check ESR, CRP. Appreciate venous and arterial duplex done in the ER. Depending on ESR and CRP result we will plan for CT of the foot. (3) End-stage renal disease (ESRD): Consult nephrology. Gets dialysis Tuesday, Tuesday, Tuesday. Continue other renal medications. Renal dialysis diet (4) Atrial fibrillation: Rate controlled. Continue home dose of Coreg. Continue home dose of Eliquis. (5) Diabetes mellitus: Continue home dose of Lantus Insulin sliding scale at moderate dose protocol. (6) S/P PTCA (percutaneous transluminal coronary angioplasty): No active chest pain. Continue home dose of Brilinta, statin, beta-daxa. Plan Continue other chronic medications. CODE STATUS: Discussed in detail with patient and patient's at bedside. will be the DPOA. Full code. Renal diabetic dialysis diet Eliquis will suffice as DVT prophylaxis Famotidine for PUD prophylaxis. Attestations Medical Necessity Statement*: Admission for more than 2 midnights for management of gram-negative bacteremia in setting of cellulitis Diagnoses Gram-negative bacteremia R78.81 Diabetic foot ulcer E11.621; L97.509 End-stage renal disease (ESRD) N18.6 Atrial fibrillation I48.91 Diabetes mellitus E11.9 S/P PTCA (percutaneous transluminal coronary angioplasty) Z98.61
[2023-07-03 16:07] LABS: Thyroid Stimulating Hormone 1.71 uIU/mL (0.27-4.20); Vitamin B12 969 pg/mL (232-1245)
[2023-07-03 16:20] LABS: Iron 31 ug/dL (59-158)
[2023-07-03 16:21] LABS: Add Urine Microscopic? YES; Bilirubin Urine Neg (Negative); Blood Urine Neg (Negative); Glucose Urine UA 2+ (Normal); Ketones Urine Negative (Negative); Leukocyte Esterase Urine Negative (Negative); Nitrate Urine Negative (Negative); Protein Urine 2+ (Negative); Sulfosalicylic Acid Urine Positive (Negative); Urine Appearance Clear (CLEAR); Urine Color Yellow (Yellow); Urobilinogen Urine Norm (Negative); pH Urine 9 (5-7)
[2023-07-03 16:25] LABS: C Reactive Protein 259.5 mg/L (0.0-4.9)
[2023-07-03 16:25] LABS: Add Urine Culture? No
[2023-07-03 16:25] LABS: Total Iron Binding Capacity 182 mcg/dl; Unsaturated Iron Binding 151 ug/dL (112-347)
[2023-07-03 16:27] LABS: Erythrocyte Sedimentation Rate 70 mm/hr (0-10)
--- NOTE | 2023-07-03 16:51 | CTR_ITS ---
PROCEDURE INFORMATION: Exam: CT Left Lower Extremity Without Contrast, Foot Exam date and time: 07/03/2023 6:41 PM Age: 78 years old Clinical indication: Swelling, leg or foot; Patient HX: Swelling and redness to left foot; Additional info: Cellulitis TECHNIQUE: Imaging protocol: CT of the left lower extremity without contrast was performed. Exam focused on the foot. Radiation optimization: All CT scans at this facility use at least one of these dose optimization techniques: automated exposure control; mA and/or kV adjustment per patient size (includes targeted exams where dose is matched to clinical indication); or iterative reconstruction. REPORTING DATA: Count of CT and Cardiac NM exams in prior 12 months: This patient has received 0 known CTs and 0 known cardiac nuclear medicine studies in the 12 months prior to the current study. COMPARISON: CR XR foot LT min 3V* [id number] 01/04/2023 12:40 PM RADIATION DOSE METRICS: Total DLP (mGy-cm): 125.42 FINDINGS: Bones/joints: Hallux valgus with bunion. 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 No fracture or dislocation. Hammertoe deformities of the left 1st through 5th toes. No evidence of osteomyelitis. Soft tissues: Nonspecific subcutaneous edema at the dorsum of the foot is compatible with the clinical history of cellulitis, but CT can not distinguish cellulitis from bland edema without intravenous contrast. No soft tissue gas or abscess. No soft tissue gas. Vasculature: Vascular calcifications. CT/CT foot LT wo con* [id number] IMPRESSION: 1. Hallux valgus with bunion. 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 2. Subcutaneous edema at the dorsal forefoot is compatible with bland edema or cellulitis. No soft tissue gas or abscess. 3. No evidence of osteomyelitis.
[2023-07-03] MEDS: isosorbide mononitrate ER 30 mg Tablet 15 MG PO (18:12)
[2023-07-03] MEDS: famotidine 20 mg Tablet PO (18:12)
[2023-07-03] MEDS: sevelamer 800 mg Tablet 2400 MG PO (18:12)
[2023-07-03] MEDS: gabapentin 300 mg Capsule PO (18:12)
[2023-07-03] MEDS: ticagrelor 90 mg Tablet PO (18:12)
[2023-07-03] MEDS: atorvastatin 40 mg Tablet 80 MG PO (18:12)
[2023-07-03] MEDS: apixaban 5 mg Tablet PO (18:12)
[2023-07-03 18:19] LABS: Glucose Point of Care 192 mg/dL (70-110)
[2023-07-03] MEDS: insulin lispro 100 unit/1 mL SUBCUT ×2 (18:22→21:17)
[2023-07-03 20:57] LABS: Glucose Point of Care 149 mg/dL (70-110)
[2023-07-03] MEDS: carvedilol 3.125 mg Tablet PO (21:18)
[2023-07-04] VITALS (12 sets, daily range): BP systolic 125–157; BP diastolic 55–90; PULSE 61–88; RESP 15–20; TEMP 36.4–37.1; O2SAT 92–98
[2023-07-04 05:04] LABS: Basophils # 0.1 10^3/uL (0.0-0.1); Basophils % 0.7 %; Eosinophils # 0.2 10^3/uL (0.0-0.8); Eosinophils % 1.7 %; Hematocrit 27.9 % (37-53); Lymphocytes # 1.2 10^3/uL (0.8-4.8); Lymphocytes % 13.9 %; Mean Corpuscular HGB Conc 31.2 g/dL (30-55); Mean Corpuscular Hemoglobin 29.8 pg (27-33); Mean Corpuscular Volume 95.5 fl (82-101); Mean Platelet Volume 10.1 fL (7.4-10.4); Monocytes # 1.2 10^3/uL (0.2-0.9); Monocytes % 13.3 %; Neutrophils # 6.07 10^3/uL (1.8-7.7); Neutrophils % 69.8 %; Nucleated Red Blood Cells % 0 %; Platelet Count 160 10^3/cmm (157-399); Red Blood Count 2.92 10^6/uL (3.85-5.65); Red Cell Distribution Width 16.5 % (12.1-15.1)
[2023-07-04 05:23] LABS: Estmated Average Glucose 123; Hemoglobin A1C 5.9 % (4.0-6.0)
[2023-07-04 05:28] LABS: Chol HDL Ratio 2.46 mg/dL (1.0-5.00); Cholesterol 69 mg/dL (0-200); HDL Cholesterol 28 mg/dL (60-100); LDL Cholesterol Calculated 27 mg/dL (50-129); Phosphorus 5.7 mg/dL (2.5-4.5); Triglycerides 71 mg/dL (0-150); VLDL Cholestrol Calculation 14 mg/dL (0-30)
[2023-07-04 05:29] LABS: Alanine Aminotransferase 10 U/L (0-41); Albumin Level 2.9 g/dL (3.5-5.2); Alkaline Phosphatase 81 U/L (40-130); Anion Gap 16.5 (5-19); Aspartate Amino Transferase 14 U/L (0-40); Blood Urea Nitrogen 46 mg/dL (8-23); Calcium 9.2 mg/dL (8.5-10.5); Carbon Dioxide 25 mmol/L (22-29); Chloride 100 mmol/L (98-107); Globulin 3.9 g/dL (1.3-4.6); Glucose 100 mg/dL (65-115); Osmolality Calculated 296 mOsm/kg (285-295); Potassium 4.5 mmol/L (3.5-5.1); Sodium 137 mmol/L (136-145); Total Bilirubin 0.5 mg/dL (0.15-1.2); Total Protein 6.8 g/dL (6.6-8.7)
[2023-07-04 05:30] LABS: Vancomycin Random 19.4 ug/mL (20.0-40.0)
[2023-07-04 05:44] LABS: Folate Level > 20.0 ng/mL (4.5-32.2)
[2023-07-04 07:01] LABS: Glucose Point of Care 78 mg/dL (70-110)
[2023-07-04] MEDS: sevelamer 800 mg Tablet 2400 MG PO ×2 (10:21→17:11)
[2023-07-04] MEDS: insulin glargine 100 units/1 mL 35 UNIT SUBCUT (10:22)
[2023-07-04] MEDS: famotidine 20 mg Tablet PO ×2 (10:22→17:11)
[2023-07-04] MEDS: ticagrelor 90 mg Tablet PO ×2 (10:22→17:11)
[2023-07-04] MEDS: gabapentin 300 mg Capsule PO ×2 (10:22→17:11)
[2023-07-04] MEDS: apixaban 5 mg Tablet PO ×2 (10:22→17:12)
[2023-07-04] MEDS: spironolactone 25 mg Tablet 50 MG PO (10:22)
[2023-07-04] MEDS: isosorbide mononitrate ER 30 mg Tablet 15 MG PO ×2 (10:22→17:12)
[2023-07-04] MEDS: carvedilol 6.25 mg Tablet PO (10:22)
[2023-07-04] MEDS: b-complex-vitamin c Tablet 1 EACH PO (10:22)
[2023-07-04 11:12] LABS: Glucose Point of Care 127 mg/dL (70-110)
[2023-07-04] MEDS: piperacillin-tazobactam 3.375 GM in sodium chloride 0.9% (plus) 50 ML IV ×2 (11:29→23:31)
--- NOTE | 2023-07-04 11:40 | PM.CONSULT ---
Providers/Reason For Consult Consulting Physician/Specialty*: Verna Shay DO, telenephrology Reason for Consult*: ESRD Attending Physician: Elvis Jasmine DO Primary Care Provider: Adria Artis DO History of Present Illness History of Present Illness Shon Mullen is a 78 year old male admitted to bacteremia, foot infection. Reports he had a corn that fell off his toe, he pulled additional tissue off. 24h later, foot swelled and became red. Came to ER, was started on doxycycline, returns for further evaluation and treatment after BC + HD MWF Review of Systems Const: Denies: fever(s) Card: Denies: chest pain or dyspnea on exertion GI: Denies: abdominal pain Medications/Allergies Home Medications Medication Instructions Recorded Confirmed Last Taken Type atorvastatin 80 mg tablet 80 mg PO DAILY@1800 10/02/19 07/03/23 07/02/23 History epoetin beta, methoxy peg 30 60 mcg SUBCUT Q14D 11/07/19 07/03/23 07/03/21 History mcg/0.3 mL injection syringe (Mircera) gabapentin 300 mg capsule 300 mg PO BID@11/07/19 07/03/23 07/03/23 History sevelamer carbonate 800 mg tablet 2,400 mg PO TID@,,11/07/19 07/03/23 07/03/23 History (Renvela) famotidine 20 mg tablet (Pepcid) 20 mg PO BID@,18 04/16/20 07/03/23 07/03/23 History liraglutide (weight loss) 3 mg/0.5 3 mg SUBCUT DAILY PRN weight loss 04/16/20 07/03/23 06/20/23 History mL (18 mg/3 mL) subcut pen injector (Saxenda) docusate sodium 100 mg capsule 200 mg PO BID@,18 09/17/20 07/03/23 07/03/23 History allopurinol 100 mg tablet 100 mg PO DAILY PRN Gout 11/11/20 07/03/23 06/30/23 History oxycodone-acetaminophen 5 mg-325 1 tab PO BEDTIME 11/11/20 07/03/23 07/02/23 History mg tablet albuterol sulfate 90 mcg/actuation 2 puff inhalation Q6H PRN 01/02/21 07/03/23 02/23/21 Rx aerosol inhaler shortness of breath or wheezing 30 days #8.5 grams albuterol sulfate 2.5 mg/3 mL 2.5 mg inhalation Q6H PRN 07/13/21 07/03/23 06/30/23 History (0.083 %) solution for nebulization Shortness Of Breath insulin glargine 100 unit/mL 35 unit SUBCUT QAM 07/13/21 07/03/23 06/30/23 History subcutaneous solution (Lantus U-100 Insulin) lidocaine-prilocaine 2.5 %-2.5 % 1 applic topical TID PRN Pain 07/13/21 07/03/23 03/21/23 History topical cream tiotropium 2.5 mcg-olodaterol 2.5 2 puff inhalation QAM 07/13/21 07/03/23 07/03/23 History mcg/actuation mist for inhalation (Stiolto Respimat) isosorbide mononitrate 30 mg 15 mg PO BID #90 tabs 08/05/21 07/03/23 07/03/23 Rx tablet,extended release 24 hr cholecalciferol (vitamin D3) 50 50 mcg PO QAM 11/11/21 07/03/23 07/03/23 History mcg (2,000 unit) capsule cetirizine 10 mg tablet (Zyrtec) 10 mg PO DAILY@18 04/26/22 07/03/23 07/02/23 History doxercalciferol 1 mcg capsule 1 mcg PO .THREE TIMES A WEEK 04/26/22 07/03/23 03/21/23 History nitroglycerin 0.4 mg sublingual 0.4 mg sublingual Q5M PRN Chest 04/26/22 07/03/23 Unknown History tablet (Nitrostat) Pain omega-3 fatty acids 1,000 mg 1,000 mg PO BID@04/26/22 07/03/23 07/03/23 History capsule ondansetron HCl 8 mg tablet 4 mg PO Q6H PRN Nausea And Vomiting 04/26/22 07/03/23 03/18/23 History ticagrelor 90 mg tablet (Brilinta) 90 mg PO BID 04/26/22 07/03/23 07/03/23 History roflumilast 250 mcg tablet 500 mcg PO QAM 06/18/22 07/03/23 07/03/23 History (Daliresp) spironolactone 50 mg tablet 50 mg PO DAILY@09 #90 tabs 06/18/22 07/03/23 07/03/23 Rx Diabetic Shoes with 3 Custom #1 ea 01/04/23 07/03/23 Unknown Rx Inserts vitamin B complex with vit C-folic 1 tab PO QAM 03/07/23 07/03/23 07/03/23 History acid 800 mcg-zinc 12.5 mg tablet (RenaPlex) carvedilol 6.25 mg tablet See Rx Instructions .Route .COMPLEX 03/21/23 07/03/23 07/03/23 History furosemide 40 mg tablet 40 mg PO QAM 06/20/23 07/03/23 07/03/23 History apixaban 5 mg tablet 5 mg PO BID 07/01/23 07/03/23 07/03/23 History carboxymethylcellulose sodium 0.5 1 drp ophthalmic (eye) QID PRN Dry 07/01/23 07/03/23 Unknown History % eye drops Eye(S) cyclobenzaprine 10 mg tablet 10 mg PO TID PRN Muscle Spasm 07/01/23 07/03/23 Unknown History doxycycline hyclate 100 mg tablet 100 mg PO BID 10 days #20 tabs 07/01/23 07/03/23 07/03/23 Rx polyethylene glycol 3350 17 4 g PO DAILY PRN Constipation 07/01/23 07/03/23 06/30/23 History gram/dose oral powder Allergies Allergy/AdvReac Type Severity Reaction Status Date / Time ciprofloxacin [From Cipro] Allergy rash Verified 07/01/23 13:46 felodipine Allergy rash Verified 07/01/23 13:46 sulfamethoxazole Allergy rash Verified 07/01/23 13:46 [From Septra] trimethoprim [From Septra] Allergy rash Verified 07/01/23 13:46 Current Medications Generic Name Dose Route Start Last Admin Trade Name Freq PRN Reason Stop Dose Admin Apixaban 5 mg 07/03/23 18:00 07/04/23 10:22 Apixaban 5 Mg Tablet PO 5 mg BID GEORGE Administration Atorvastatin Calcium 80 mg 07/03/23 18:00 07/03/23 18:12 Atorvastatin 40 Mg Tablet PO 80 mg DAILY@1800 GEORGE Administration Carvedilol 6.25 mg 07/04/23 09:00 07/04/23 10:22 Carvedilol 6.25 Mg Tablet PO 6.25 mg 0900 [facility] Administration Carvedilol 3.125 mg 07/03/23 21:00 07/03/23 21:18 Carvedilol 3.125 Mg Tablet PO 3.125 mg 2100 GEORGE Administration Famotidine 20 mg 07/03/23 18:00 07/04/23 10:22 Famotidine 20 Mg Tablet PO 20 mg BID@ GEORGE Administration Gabapentin 300 mg 07/03/23 18:00 07/04/23 10: Gabapentin 300 Mg Capsule PO 300 mg BID@ [facility] Administration Piperacillin Sod/Tazobactam 50 mls @ 12.5 mls/hr 07/03/23 23:00 07/04/23 11:29 Sod 3.375 gm/ Sodium Chloride IV 12.5 mls/hr Q12H [facility] Administration Protocol As Directed Insulin Glargine 35 unit 07/04/23 08:00 07/04/23 10:22 Insulin Glargine 100 Units/1 Ml SUBCUT 35 unit DAILY@0800 [facility] Administration Insulin Human Lispro 0 unit 07/03/23 18:00 07/04/23 11:17 Insulin Lispro 100 Unit/1 Ml SUBCUT Not Given WM&BEDTIME [facility] Protocol Isosorbide Mononitrate 15 mg 07/03/23 18:00 07/04/23 10:22 Isosorbide Mononitrate Er 30 Mg Tablet PO 15 mg BID [facility] Administration Multivitamins 1 each 07/04/23 06:00 07/04/23 10:22 P-[id number] C Tablet PO 1 each QAM [facility] Administration Sevelamer Carbonate 2,400 mg 07/03/23 18:00 07/04/23 10:21 Sevelamer 800 Mg Tablet PO 2,400 mg TID@ [facility] Administration Spironolactone 50 mg 07/04/23 09:00 07/04/23 10:22 Spironolactone 25 Mg Tablet PO 50 mg DAILY@09 [facility] Administration Ticagrelor 90 mg 07/03/23 18:00 07/04/23 10: Ticagrelor 90 Mg Tablet PO 90 mg BID [facility] Administration PFSH Acute PFSH: Medical History Accelerated essential hypertension Anemia Atrial fibrillation CAD (coronary artery disease) CHF (congestive heart failure) Chronic anticoagulation Diabetes mellitus ESRD (end stage renal disease) Heart failure Hypercholesteremia LV dysfunction Myocardial infarct Neuropathy NSTEMI (non-ST elevated myocardial infarction) MARAL (obstructive sleep apnea) Pacemaker Pneumonia Renal failure Respiratory failure with hypoxia Restrictive lung disease Small airways disease Surgical History Hemodialysis access, AV graft History of colonoscopy with polypectomy 2020 Peritoneal dialysis status (03/02/21) removed S/P cardiac pacemaker procedure S/P cataract surgery S/P dialysis catheter insertion S/P PTCA (percutaneous transluminal coronary angioplasty) Family History Mother Heart disease Social History Smoking and tobacco/nicotine status: former use of tobacco/nicotine Quit status (tobacco/nicotine): has quit using Year quit tobacco: 1984 Former quit date comment: 3PPD x 17 Years Second hand smoke exposure: No Alcohol intake: never Substance/Drug Use: never Lives independently: Yes Household members: spouse Housing: House Marital status: service: Yes Current occupational status: retired Pets and animals: No Do you think of yourself as: Straight/Heterosexual Current gender identity: Male Vitals/I&O/Wt Last Vital Signs Temp 97.7 F 07/04/23 11:31 Pulse 68 07/04/23 11:31 Resp 16 07/04/23 11:31 BP 125/71 07/04/23 11:31 Pulse Ox 98 07/04/23 11:31 O2 Del Method Nasal Cannula 07/04/23 11:31 O2 Flow Rate 4 07/04/23 08:00 07/03/23 07/04/23 07/04/23 22:59 06:59 14:59 Intake Total 610 / 910 50 / 960 240 / 240 Output Total 400 / 400 Balance 610 / 910 -350 / 560 240 / 240 Weight last 48 hrs Weight 129.637 kg Weight 121.109 kg Physical Exam Const: COMMON NORMALS: no acute distress Extremity: NARRATIVE EXTREMITY EXAM: + AVG right forearm, + thrill per RN, no signs of infection OTHER: left foot red and swollen Data 07/04/23 04:42 07/04/23 04:42 Micro: Microbiology 07/03/23 11:03 Blood Culture - Preliminary Blood NEGATIVE TO DATE 07/03/23 10:55 Blood Culture - Preliminary Blood NEGATIVE TO DATE 07/01/[address]: Radiologist's impression: left foot 1.?? Hallux valgus with bunion. 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 2. ? Subcutaneous edema at the dorsal forefoot is compatible with bland edema or cellulitis. No soft tissue gas or abscess. 3. ? No evidence of osteomyelitis. Other data: seen via telemedicine with assistance of RN at bedside A&P Assessment and plan (1) End-stage renal disease (ESRD): Plan 1. ESRD, HD MWF 2. GNR bacteremia, foot is likely source. Repeat BC no growth thus far 3. Anemia 4. DM, CAD, CHF Plan: HD today 3.5h, 1L UF, epogen 5000u IV. No IVs, blood draws, BPs right UE, renal diet Consult Attestations Medical Necessity Statement: see above Time Spent in Patient Care: 16 - 35 minutes Coding Level of Care Code Acute Code for Chg Fwd Diagnoses End-stage renal disease (ESRD) N18.6
[2023-07-04 12:47] LABS: Hepatitis C Virus Antibody Non-Reactive (Nonreactive)
[2023-07-04 12:48] LABS: Hepatitis B Surface Antigen Non-Reactive (Nonreactive)
[2023-07-04] MEDS: atorvastatin 40 mg Tablet 80 MG PO (17:11)
[2023-07-04] MEDS: vancomycin 750 MG in sodium chloride 0.9% 250 ML 250 MG IV (17:12)
[2023-07-04 17:14] LABS: Glucose Point of Care 90 mg/dL (70-110)
[2023-07-04] MEDS: heparin, porcine 1,000 unit/mL INJ 10 mL 1000 UNIT IV (17:42)
[2023-07-04] MEDS: epoetin alfa (ESRD) 5,000 UNIT in SYRINGE 1 EACH 129 UNIT IVP (17:43)
--- NOTE | 2023-07-04 17:50 | PM.PN ---
Subjective Subjective: Complains of left foot pain and infection. Patient states he had a corn on his left fourth digit that came off upon removing shoes and socks. Since then his toe and foot have swollen and become purpleish red. Blood cultures were obtained at some point and found to be positive and he was sent to the emergency room. Patient states that his left foot is no change after hospitalization. CT of the foot is negative for osteomyelitis patient is admitted for IV antibiotics and follow-up of blood culture Vitals/I&O/Wt Last Vital Signs Temp 97.7 F 07/04/23 17:25 Pulse 61 07/04/23 17:25 Resp 18 07/04/23 17:25 BP 152/55 07/04/23 17:25 Pulse Ox 98 07/04/23 11:31 O2 Del Method Nasal Cannula 07/04/23 11:31 O2 Flow Rate 4 07/04/23 08:00 07/04/23 07/04/23 07/04/23 06:59 14:59 22:59 Intake Total 50 / 960 480 / 480 470 / 950 Output Total 400 / 400 1300 / 1300 Balance -350 / 560 480 / 480 -830 / -350 Weight last 48 hrs Weight 128 kg Weight 129.637 kg Weight 121.109 kg Physical Exam Narrative: Morbidly obese white male seen in dialysis without significant concerns. Neurologic alert and oriented x3 exam is nonfocal Heart: Regular normal S1-S2 with no loud murmur Lungs clear to auscultation without wheezes rales or rhonchi Abdomen obese soft nontender nondistended positive bowel sounds Extremities left foot to one third lower extremity with deep dark purple he read and edema. There is pain to palpation of the toes. There is a wound of the fourth anterior digit and a corn on the fifth digit Data 07/04/23 04:42 07/04/23 04:42 Micro: Microbiology 07/03/23 11:03 Blood Culture - Preliminary Blood NEGATIVE TO DATE 07/03/23 10:55 Blood Culture - Preliminary Blood NEGATIVE TO DATE Other CT: My impression: Left foot CT Radiologist's impression: IMPRESSION: 1. ? Hallux valgus with bunion. 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 2. ? Subcutaneous edema at the dorsal forefoot is compatible with bland edema or cellulitis. No soft tissue gas or abscess. 3. ? No evidence of osteomyelitis. Other Imaging: My impression: Bilateral ultrasound duplex lower extremities Radiologist's impression: MPRESSION: No evidence of deep vein thrombosis. ? A&P Assessment and plan (1) Gram-negative bacteremia: Most likely in setting of cellulitis of leg. Repeat blood cultures. Start on vancomycin, Zosyn. Will de-escalate as per culture sensitivities. Patient will need 14 days of IV antibiotics from first negative blood cultures. (2) Diabetic foot ulcer: On vancomycin and Zosyn Wound care consult. (3) End-stage renal disease (ESRD): Consult nephrology. HD: Tuesday, Tuesday, Tuesday. Continue other renal medications. Renal dialysis diet (4) Atrial fibrillation: Rate controlled. Continue home dose of Coreg and Eliquis (5) Diabetes mellitus: Continue home dose of Lantus Insulin sliding scale at moderate dose protocol. (6) S/P PTCA (percutaneous transluminal coronary angioplasty): No active chest pain. Continue home dose of Brilinta, statin, beta-daxa. Plan Continue other chronic medications. CODE STATUS: Discussed in detail with patient and patient's at bedside. will be the DPOA. Full code. Renal diabetic dialysis diet Eliquis will suffice as DVT prophylaxis PUD prophylaxis not indicated Attestations Medical Necessity Statement*: Admission for more than 2 midnights for management of gram-negative bacteremia in setting of cellulitis Coding Level of Care Code Acute Code for [facility] Diagnoses Gram-negative bacteremia R78.81 Diabetic foot ulcer E11.621; L97.509 End-stage renal disease (ESRD) N18.6 Atrial fibrillation I48.91 Diabetes mellitus E11.9 S/P PTCA (percutaneous transluminal coronary angioplasty) Z98.61
[2023-07-04 20:05] LABS: Glucose Point of Care 222 mg/dL (70-110)
[2023-07-04] MEDS: morphine 4 mg/mL SDV 1 mL 2 MG IVP (20:54)
[2023-07-04] MEDS: insulin lispro 100 unit/1 mL SUBCUT (21:29)
[2023-07-04] MEDS: carvedilol 3.125 mg Tablet PO (21:29)
[2023-07-05] VITALS (11 sets, daily range): BP systolic 107–149; BP diastolic 53–68; PULSE 60–73; RESP 16–18; TEMP 36.4–36.8; O2SAT 93–98
[2023-07-05 06:18] LABS: Glucose Point of Care 153 mg/dL (70-110)
[2023-07-05 06:38] LABS: Phosphorus 4.1 mg/dL (2.5-4.5)
[2023-07-05] MEDS: gabapentin 300 mg Capsule PO ×2 (07:54→18:35)
[2023-07-05] MEDS: famotidine 20 mg Tablet PO ×2 (07:54→18:36)
[2023-07-05] MEDS: spironolactone 25 mg Tablet 50 MG PO (07:54)
[2023-07-05] MEDS: sevelamer 800 mg Tablet 2400 MG PO ×3 (07:54→18:35)
[2023-07-05] MEDS: b-complex-vitamin c Tablet 1 EACH PO (07:54)
[2023-07-05] MEDS: ticagrelor 90 mg Tablet PO ×2 (07:54→18:36)
[2023-07-05] MEDS: carvedilol 6.25 mg Tablet PO (07:54)
[2023-07-05] MEDS: isosorbide mononitrate ER 30 mg Tablet 15 MG PO ×2 (07:55→18:36)
[2023-07-05] MEDS: apixaban 5 mg Tablet PO ×2 (07:55→18:36)
[2023-07-05] MEDS: insulin glargine 100 units/1 mL 35 UNIT SUBCUT (07:55)
[2023-07-05] MEDS: insulin lispro 100 unit/1 mL SUBCUT ×2 (07:55→11:36)
--- NOTE | 2023-07-05 10:13 | P.CONIM_ITS ---
Providers/Reason For Consult Consulting Physician/Specialty*: Demetria Coombs INSPECTOR CRYSTAL-BC/ Wound Care Reason for Consult*: Wound to fourth digit of left foot, dorsal surface Requesting Physician: Elvis Jasmine DO Attending Physician: Elvis aJsmine DO Primary Care Provider: Adria Artis DO History of Present Illness History of Present Illness Shon Mullen is a 78 year old male presents today with left foot wound to the fourth toe, dorsal aspect. He was admitted on 07/03/2023 with atrial fibrillation. Medical history includes diabetes, end-stage renal disease with hemodialysis on Tuesday, Tuesday, Tuesday, CHF and chronic respiratory failure with hypoxia. He is currently on 4L NC which he reports he wears at baseline. Mr. Mullen reports he visited the emergency department on 07/01/2023 where blood cultures were drawn that resulted in gram-negative letitia growth. Mr. Mullen reports he has had the wound on his left fourth toe for approximately 1 month. He reports soaking His left foot in Epsom salt on 07/01/2023, when he reports the wound opened up and drained purulent drainage. Mr. Mullen denies drainage after 07/01/23. He reports he had pain to his left foot on that day. He denies pain at this time. CT performed this admission showed hallux valgus with bunion, miild osteoarthritis at the 1st MTP joint, Subcutaneous edema at the dorsal forefoot is compatible with bland edema or cellulitis. No soft tissue gas or abscess and no evidence of osteomyelitis. Assessment of the wound today reveals dried exudate to the dorsal aspect of the left fourth toe measuring 1.0 x 1.0cm. No drainage noted. The wound does not appear open at this time. I do appreciate significant dark pink erythema to the left foot extending to the pretibial region of the left lower extremity. 4+ pitting edema to the left foot with 2+ pitting edema to the left pretibial region. No curette debridement performed. I recommend painting the left fourth toe dorsal aspect with iodine daily, cover with 2 x 2 gauze and secure with tape. He may shower with no wound dressing. Mr. Mullen reports he has new custom diabetic shoes. I have discussed with him the importance of daily foot examinations. I also discussed with him the importance of having his new shoes modified so they do not rub his toes causing further skin breakdown or other wounds. I discussed the importance of never going barefoot with Mr. Mullen. I have encouraged him to avoid ambulation and elevate his leg as much as possibl e except when toileting and performing ADL's. I have encouraged Mr. Mullen to follow up with wound care at time of discharge and he has agreed to this plan. I do not recommend any further imaging at this time unless the left foot worsens or does not respond to treatment. Review of Systems Const: Denies: fever(s) Card: Denies: chest pain or dyspnea on exertion GI: Denies: abdominal pain Medications/Allergies Home Medications Medication Instructions Recorded Confirmed Last Taken Type atorvastatin 80 mg tablet 80 mg PO DAILY@1800 10/02/19 07/03/23 07/02/23 History epoetin beta, methoxy peg 30 60 mcg SUBCUT Q14D 11/07/19 07/03/23 07/03/21 History mcg/0.3 mL injection syringe (Mircera) gabapentin 300 mg capsule 300 mg PO BID@11/07/19 07/03/23 07/03/23 History sevelamer carbonate 800 mg tablet 2,400 mg PO TID@,,11/07/19 07/03/23 07/03/23 History (Renvela) famotidine 20 mg tablet (Pepcid) 20 mg PO BID@04/16/20 07/03/23 07/03/23 History liraglutide (weight loss) 3 mg/0.5 3 mg SUBCUT DAILY PRN weight loss 04/16/20 07/03/23 06/20/23 History mL (18 mg/3 mL) subcut pen injector (Saxenda) docusate sodium 100 mg capsule 200 mg PO BID@,18 09/17/20 07/03/23 07/03/23 History allopurinol 100 mg tablet 100 mg PO DAILY PRN Gout 11/11/20 07/03/23 06/30/23 History oxycodone-acetaminophen 5 mg-325 1 tab PO BEDTIME 11/11/20 07/03/23 07/02/23 History mg tablet albuterol sulfate 90 mcg/actuation 2 puff inhalation Q6H PRN 01/02/21 07/03/23 02/23/21 Rx aerosol inhaler shortness of breath or wheezing 30 days #8.5 grams albuterol sulfate 2.5 mg/3 mL 2.5 mg inhalation Q6H PRN 07/13/21 07/03/23 06/30/23 History (0.083 %) solution for nebulization Shortness Of Breath insulin glargine 100 unit/mL 35 unit SUBCUT QAM 07/13/21 07/03/23 06/30/23 History subcutaneous solution (Lantus U-100 Insulin) lidocaine-prilocaine 2.5 %-2.5 % 1 applic topical TID PRN Pain 07/13/21 07/03/23 03/21/23 History topical cream tiotropium 2.5 mcg-olodaterol 2.5 2 puff inhalation QAM 07/13/21 07/03/23 07/03/23 History mcg/actuation mist for inhalation (Stiolto Respimat) isosorbide mononitrate 30 mg 15 mg PO BID #90 tabs 08/05/21 07/03/23 07/03/23 Rx tablet,extended release 24 hr cholecalciferol (vitamin D3) 50 50 mcg PO QAM 11/11/21 07/03/23 07/03/23 History mcg (2,000 unit) capsule cetirizine 10 mg tablet (Zyrtec) 10 mg PO DAILY@18 04/26/22 07/03/23 07/02/23 H istory doxercalciferol 1 mcg capsule 1 mcg PO .THREE TIMES A WEEK 04/26/22 07/03/23 03/21/23 History nitroglycerin 0.4 mg sublingual 0.4 mg sublingual Q5M PRN Chest 04/26/22 07/03/23 Unknown History tablet (Nitrostat) Pain omega-3 fatty acids 1,000 mg 1,000 mg PO BID@04/26/22 07/03/23 07/03/23 History capsule ondansetron HCl 8 mg tablet 4 mg PO Q6H PRN Nausea And Vomiting 04/26/22 07/03/23 03/18/23 History ticagrelor 90 mg tablet (Brilinta) 90 mg PO BID 04/26/22 07/03/23 07/03/23 History roflumilast 250 mcg tablet 500 mcg PO QAM 06/18/22 07/03/23 07/03/23 History (Daliresp) spironolactone 50 mg tablet 50 mg PO DAILY@09 #90 tabs 06/18/22 07/03/23 07/03/23 Rx Diabetic Shoes with 3 Custom #1 ea 01/04/23 07/03/23 Unknown Rx Inserts vitamin B complex with vit C-folic 1 tab PO QAM 03/07/23 07/03/23 07/03/23 History acid 800 mcg-zinc 12.5 mg tablet (RenaPlex) carvedilol 6.25 mg tablet See Rx Instructions .Route .COMPLEX 03/21/23 07/03/23 07/03/23 History furosemide 40 mg tablet 40 mg PO QAM 06/20/23 07/03/23 07/03/23 History apixaban 5 mg tablet 5 mg PO BID 07/01/23 07/03/23 07/03/23 History carboxymethylcellulose sodium 0.5 1 drp ophthalmic (eye) QID PRN Dry 07/01/23 07/03/23 Unknown History % eye drops Eye(S) cyclobenzaprine 10 mg tablet 10 mg PO TID PRN Muscle Spasm 07/01/23 07/03/23 Unknown History doxycycline hyclate 100 mg tablet 100 mg PO BID 10 days #20 tabs 07/01/23 07/03/23 07/03/23 Rx polyethylene glycol 3350 17 4 g PO DAILY PRN Constipation 07/01/23 07/03/23 06/30/23 History gram/dose oral powder Allergies Allergy/AdvReac Type Severity Reaction Status Date / Time ciprofloxacin [From Cipro] Allergy rash Verified 07/01/23 13:46 felodipine Allergy rash Verified 07/01/23 13:46 sulfamethoxazole Allergy rash Verified 07/01/23 13:46 [From Septra] trimethoprim [From Septra] Allergy rash Verified 07/01/23 13:46 Current Medications Generic Name Dose Route Start Last Admin Trade Name Freq PRN Reason Stop Dose Admin Apixaban 5 mg 07/03/23 18:00 07/05/23 07:55 Apixaban 5 Mg Tablet PO 5 mg BID GEORGE Administration Atorvastatin Calcium 80 mg 07/03/23 18:00 07/04/23 17:11 Atorvastatin 40 Mg Tablet PO 80 mg DAILY@1800 GEORGE Administration Carvedilol 6.25 mg 07/04/23 09:00 07/05/23 07:54 Carvedilol 6.25 Mg Tablet PO 6.25 mg 0900 GEORGE Administration Carvedilol 3.125 mg 07/03/23 21:00 07/04/23 21:29 Carvedilol 3.125 Mg Tablet PO 3.125 mg 2100 GEORGE Administration Famotidine 20 mg 07/03/23 18:00 07/05/23 07:54 Famotidine 20 Mg Tablet PO 20 mg BID@ GEORGE Administration Gabapentin 300 mg 07/03/23 18:00 07/05/23 07:54 Gabapentin 300 Mg Capsule PO 300 mg BID@ GEORGE Administration Piperacillin Sod/Tazobactam 50 mls @ 12.5 mls/hr 07/03/23 23:00 07/05/23 04:09 Sod 3.375 gm/ Sodium Chloride IV Infused Q12H GEORGE Infusion Protocol As Directed Vancomycin HCl 750 mg/ Sodium 250 mls @ 250 mls/hr 07/04/23 16:00 07/04/23 18:30 Chloride IV Infused MoWeFr GEORGE Infusion Protocol As Directed Epoetin Tarun 5,000 unit/ N/A 0.25 mls @ 0 mls/hr 07/04/23 12:30 07/04/23 18:30 IVP Infused ONCE GEORGE Infusion As Directed Insulin Glargine 35 unit 07/04/23 08:00 07/05/23 07:55 Insulin Glargine 100 Units/1 Ml SUBCUT 35 unit DAILY@0800 REPLACED BY [facility] Administration Insulin Human Lispro 0 unit 07/03/23 18:00 07/05/23 07:55 Insulin Lispro 100 Unit/1 Ml SUBCUT 2 unit WM&BEDTIME GEORGE Administration Protocol Isosorbide Mononitrate 15 mg 07/03/23 18:00 07/05/23 07:55 Isosorbide Mononitrate Er 30 Mg Tablet PO 15 mg BID GEORGE Administration Morphine Sulfate 2 mg 07/03/23 14:55 07/04/23 20:54 Morphine 4 Mg/Ml Sdv 1 Ml IVP 2 mg Q4H PRN Administration SEVERE PAIN Multivitamins 1 each 07/05/23 09:00 07/05/23 07:54 X-Dxipypw-Gngvznu C Tablet PO 1 each DAILY GEORGE Administration Sevelamer Carbonate 2,400 mg 07/03/23 18:00 07/05/23 07:54 Sevelamer 800 Mg Tablet PO 2,400 mg TID@,,18 GEORGE Administration Spironolactone 50 mg 07/04/23 09:00 07/05/23 07:54 Spironolactone 25 Mg Tablet PO 50 mg DAILY@09 GEORGE Administration Ticagrelor 90 mg 07/03/23 18:00 07/05/23 07:54 Ticagrelor 90 Mg Tablet PO 90 mg BID GEORGE Administration PFSH Acute PFSH: Medical History Accelerated essential hypertension Anemia Atrial fibrillation CAD (coronary artery disease) CHF (congestive heart failure) Chronic anticoagulation Diabetes mellitus ESRD (end stage renal disease) Heart failure Hypercholesteremia LV dysfunction Myocardial infarct Neuropathy NSTEMI (non-ST elevated myocardial infarction) MARAL (obstructive sleep apnea) Pacemaker Pneumonia Renal failure Respiratory failure with hypoxia Restrictive lung disease Small airways disease Surgical History Hemodialysis access, AV graft History of colonoscopy with polypectomy 2020 Peritoneal dialysis status (03/02/21) removed S/P cardiac pacemaker procedure S/P cataract surgery S/P dialysis catheter insertion S/P PTCA (percutaneous transluminal coronary angioplasty) Family History Mother Heart disease Social History Smoking and tobacco/nicotine status: former use of tobacco/nicotine Quit status (tobacco/nicotine): has quit using Year quit tobacco: 1984 Former quit date comment: 3PPD x 17 Years Second hand smoke exposure: No Alcohol intake: never Substance/Drug Use: never Lives independently: Yes Household members: spouse Housing: House Marital status: service: Yes Current occupational status: retired Pets and animals: No Do you think of yourself as: Straight/Heterosexual Current gender identity: Male Vitals/I&O/Wt Last Vital Signs Temp 97.8 F 07/05/23 08:00 Pulse 63 07/05/23 08:00 Resp 18 07/05/23 08:00 BP 149/68 07/05/23 08:00 Pulse Ox 96 07/05/23 09:37 O2 Del Method Nasal Cannula 07/05/23 09:37 O2 Flow Rate 4 07/05/23 09:37 07/04/23 07/05/23 07/05/23 22:59 06:59 14:59 Intake Total 840.25 / 1320.25 530 / 1850.25 240 / 240 Output Total 1500 / 1500 300 / 1800 Balance -659.75 / -179.75 230 / 50.25 240 / 240 Weight last 48 hrs Weight 128 kg Weight 129.637 kg Weight 121.109 kg Physical Exam Narrative: Morbidly obese white male seen in dialysis without significant concerns. Neurologic: alert and oriented x3 exam is nonfocal Heart: Regular normal S1-S2 with no loud murmur Lungs: clear to auscultation without wheezes rales or rhonchi, 4L NC. Abdomen obese soft nontender nondistended positive bowel sounds Extremities Dark pink Erythema to left lower extremity to pretibial region. 4+ pitting edema to left lower extremity. Denies pain. Wound of the fourth toe of left foot, dorsal surface. Callus to fifth toe of left foot. Data 07/04/23 04:42 07/04/23 04:42 Micro: Microbiology 07/03/23 11:03 Blood Culture - Preliminary Blood NEGATIVE TO DATE 07/03/23 10:55 Blood Culture - Preliminary Blood NEGATIVE TO DATE Other CT: My impression: Left foot CT Radiologist's impression: IMPRESSION: 1. ? Hallux valgus with bunion. 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 2. ? Subcutaneous edema at the dorsal forefoot is compatible with bland edema or cellulitis. No soft tissue gas or abscess. 3. ? No evidence of osteomyelitis. Other Imaging: My impression: Bilateral ultrasound duplex lower extremities Radiologist's impression: MPRESSION: No evidence of deep vein thrombosis. ? A&P Assessment and plan (1) Diabetic foot ulcer: Left foot fourth toe wound, dorsal surface Qualifiers: Diabetes mellitus type: type 2 Diabetic foot ulcer location: toe Plan Daily dressing changes: paint with iodine and cover with 2x2 gauze and secure with tape to dorsal surface of foot. Consult Attestations Medical Necessity Statement: see above Time Spent in Patient Care: 16 - 35 minutes (>than 50% of time spent in co unselling and/or direct pt care on unit) . 25 minutes Coding Level of Care Code 38334 Diagnoses Diabetic foot ulcer E11.621; L97.509 Diabetes mellitus type: type 2 Diabetic foot ulcer location: toe Time Spent (min) 25 Wound Orders Wound Number 1: Left foot wound, fourth toe, dorsal aspect. Does Wound require Debridement?: No Duration: 14 Days Dressing change frequency: Daily Wound Cleansing: Saline Primary Wound Care Dressing: Iodine swab Secondary Wound Care Dressinx2 gauze , secure with tape Bathing/Showering/Hygiene: May shower without wound dressing Edema Control: Elevate legs to heart level for 30 mins daily and/or when sitting and Avoid standing for long periods of time
[2023-07-05 10:54] LABS: Glucose Point of Care 203 mg/dL (70-110)
--- NOTE | 2023-07-05 11:31 | PM.PN ---
Subjective Subjective: no new complaints foot unchanged, possibly more read Vitals/I&O/Wt Last Vital Signs Temp 98.3 F 07/05/23 11:24 Pulse 65 07/05/23 11:24 Resp 18 07/05/23 11:24 BP 107/53 07/05/23 11:24 Pulse Ox 94 07/05/23 11:24 O2 Del Method Nasal Cannula 07/05/23 11:24 O2 Flow Rate 4 07/05/23 09:37 07/04/23 07/05/23 07/05/23 22:59 06:59 14:59 Intake Total 840.25 / 1320.25 530 / 1850.25 240 / 240 Output Total 1500 / 1500 300 / 1800 Balance -659.75 / -179.75 230 / 50.25 240 / 240 Weight last 48 hrs Weight 128 kg Weight 129.637 kg Physical Exam Const: COMMON NORMALS: no acute distress and alert Extremity: NARRATIVE EXTREMITY EXAM: redness left leg below knee to foot Neuro: SENSORIUM/ORIENTATION: Yes alert Data 07/04/23 04:42 07/04/23 04:42 Micro: Microbiology 07/03/23 11:03 Blood Culture - Preliminary Blood NEGATIVE TO DATE 07/03/23 10:55 Blood Culture - Preliminary Blood NEGATIVE TO DATE Other data: seen via telemedicine with assistance of RN at bedside A&P Assessment and plan (1) End-stage renal disease (ESRD): Plan 1. ESRD, HD MWF 2. Severe cellulitis left foot, leg. Gram stain BC 07/01 reported GNR,however nothing grew on cuture, Repeat BC no growth thus far, on zosyn and vancomycin 3. Anemia 4. DM, CAD, CHF, chronic hypotension Plan: HD tomorrow 3.5h, 1L UF, epogen 5000u IV. No IVs, blood draws, BPs right UE, renal diet Attestations Medical Necessity Statement*: see above Time Spent in Patient Care: 16 - 35 minutes Coding Level of Care Code Acute Code for Chg Fwd Diagnoses End-stage renal disease (ESRD) N18.6
[2023-07-05] MEDS: piperacillin-tazobactam 3.375 GM in sodium chloride 0.9% (plus) 50 ML IV ×2 (11:36→23:40)
[2023-07-05 16:39] LABS: Glucose Point of Care 85 mg/dL (70-110)
--- NOTE | 2023-07-05 16:51 | PM.PN ---
Subjective Subjective: Patient reports this morning that his left foot is better. Him and his are interested in the results of the blood cultures. We rounded later this afternoon at time of this entry. Blood cultures from 07/09/2023 are now considered negative with the isolate being nonviable . CT of the foot is negative for osteomyelitis leaving us with cellulitis and soft tissue infection. Vitals/I&O/Wt Last Vital Signs Temp 98.3 F 07/05/23 11:24 Pulse 65 07/05/23 11:24 Resp 18 07/05/23 11:24 BP 107/53 07/05/23 11:24 Pulse Ox 94 07/05/23 11:24 O2 Del Method Nasal Cannula 07/05/23 11:24 O2 Flow Rate 4 07/05/23 09:37 07/05/23 07/05/23 07/05/23 06:59 14:59 22:59 Intake Total 530 / 1850.25 720 / 720 50 / 770 Output Total 300 / 2850 Balance 230 / -999.75 720 / 720 50 / 770 Weight last 48 hrs Weight 128 kg Weight 129.637 kg Physical Exam Narrative: Morbidly obese white male seen reclining in a chair in his room with family. Heart: Regular normal S1-S2 with no loud murmur Lungs clear to auscultation without wheezes rales or rhonchi Abdomen obese soft nontender nondistended positive bowel sounds Extremities left foot shows slight improvement of the severity of erythema. Wound care nurse practitioner I had seen the patient and placed a bandage on the fourth digit.. Data 07/04/23 04:42 07/04/23 04:42 A&P Assessment and plan (1) Gram-negative bacteremia: This diagnosis was ruled out. Initial Gram stain showed gram-negative rods. The isolate was nonviable. (2) Diabetic foot ulcer: On vancomycin and Zosyn Wound care consult greatly appreciated. Patient will follow-up in wound care clinic. We will discharge on Augmentin until seen in wound care clinic. Qualifiers: Diabetes mellitus type: type 2 Diabetic foot ulcer location: toe (3) End-stage renal disease (ESRD): Consult nephrology. HD: Tuesday, Tuesday, Tuesday. Continue other renal medications. Renal dialysis diet (4) Atrial fibrillation: Rate controlled. Continue home dose of Coreg and Eliquis (5) Diabetes mellitus: Continue home dose of Lantus Insulin sliding scale at moderate dose protocol. (6) S/P PTCA (percutaneous transluminal coronary angioplasty): No active chest pain. Continue home dose of Brilinta, statin, beta-daxa. Plan Continue other chronic medications. CODE STATUS: Full Renal diabetic dialysis diet Eliquis will suffice as DVT prophylaxis PUD prophylaxis not indicated but takes at home Attestations Medical Necessity Statement*: Admission for more than 2 midnights for management of soft tissue cellulitis in setting of diabetes. Coding Level of Care Code Acute Code for Chg Fwd Diagnoses Gram-negative bacteremia R78.81 Diabetic foot ulcer E11.621; L97.509 Diabetes mellitus type: type 2 Diabetic foot ulcer location: toe End-stage renal disease (ESRD) N18.6 Atrial fibrillation I48.91 Diabetes mellitus E11.9 S/P PTCA (percutaneous transluminal coronary angioplasty) Z98.61
[2023-07-05] MEDS: atorvastatin 40 mg Tablet 80 MG PO (18:36)
[2023-07-05] MEDS: oxyCODONE-APAP 5-325 mg Tablet 1 TAB PO (18:38)
[2023-07-05 20:54] LABS: Glucose Point of Care 125 mg/dL (70-110)
[2023-07-05] MEDS: carvedilol 3.125 mg Tablet PO (21:04)
[2023-07-06] VITALS (8 sets, daily range): BP systolic 127–163; BP diastolic 72–100; PULSE 61–70; RESP 16–18; TEMP 36.5–37; O2SAT 95–98; BMI 40.4
[2023-07-06 05:34] LABS: Anion Gap 17.2 (5-19); Blood Urea Nitrogen 38 mg/dL (8-23); Calcium 9.2 mg/dL (8.5-10.5); Carbon Dioxide 24 mmol/L (22-29); Chloride 98 mmol/L (98-107); Glucose 124 mg/dL (65-115); Magnesium 2.2 mg/dL (1.7-2.3); Osmolality Calculated 290 mOsm/kg (285-295); Potassium 4.2 mmol/L (3.5-5.1); Sodium 135 mmol/L (136-145)
[2023-07-06 06:29] LABS: Glucose Point of Care 109 mg/dL (70-110)
[2023-07-06] MEDS: spironolactone 25 mg Tablet 50 MG PO (08:49)
[2023-07-06] MEDS: sevelamer 800 mg Tablet 2400 MG PO ×2 (08:49→12:21)
[2023-07-06] MEDS: insulin glargine 100 units/1 mL 35 UNIT SUBCUT (08:49)
[2023-07-06] MEDS: b-complex-vitamin c Tablet 1 EACH PO (08:49)
[2023-07-06] MEDS: ticagrelor 90 mg Tablet PO (08:50)
[2023-07-06] MEDS: apixaban 5 mg Tablet PO (08:50)
[2023-07-06] MEDS: isosorbide mononitrate ER 30 mg Tablet 15 MG PO (08:50)
[2023-07-06] MEDS: gabapentin 300 mg Capsule PO (08:50)
[2023-07-06] MEDS: famotidine 20 mg Tablet PO (08:50)
[2023-07-06] MEDS: carvedilol 6.25 mg Tablet PO (08:50)
--- NOTE | 2023-07-06 10:14 | PM.DCS ---
Discharge Providers Date of Admission: 07/03/23 11:24 Date of Discharge: July 06, 2023 Attending Provider at Admission: Renetta Harvey MD Attending Provider at Discharge: Elvis Jasmine DO Consults: Wound care CERTIFIED FAMILY MEDIATOR Primary Care Provider: Adria Artis DO Diagnoses at Discharge Discharge Diagnosis (1) Gram-negative bacteremia: Status: Ruled-out (2) Diabetic foot ulcer: Status: Acute Qualifiers: Diabetes mellitus type: type 2 Diabetic foot ulcer location: toe (3) End-stage renal disease (ESRD): Status: Acute (4) Atrial fibrillation: Status: Acute (5) Diabetes mellitus: Status: Acute (6) S/P PTCA (percutaneous transluminal coronary angioplasty): Status: Acute Reason for Visit Reason for Visit: labs was not good Brief History: Patient was seen in the ER 2 days prior with a left foot infection. At that time a blood culture was obtained. The patient was called that the blood culture was abnormal and needed to return to the hospital for IV antibiotics. Hospital Course Hospital Course Patient was admitted for IV antibiotics for the left foot infection. He is a hemodialysis patient nephrology was consulted to manage. He dialyzes on Fridays. Patient was on IV Zosyn. The blood cultures finalized and it was a nonviable isolate. Thus a negative blood culture. Repeat blood cultures were obtained on this ER visit and those cultures were also negative. Wound care nurse practitioner saw the patient dressed the wound on the fourth toe and recommended aggressive follow-up. He has shown great improvement of the edema and erythema of that left foot and will be discharged home on oral antibiotics. Physical Exam Narrative: Morbidly obese white male seen reclining in a chair in his room with family. Heart: Regular normal S1-S2 with no loud murmur Lungs clear to auscultation without wheezes rales or rhonchi Abdomen obese soft nontender nondistended positive bowel sounds Extremities left foot shows slight improvement of the severity of erythema. Wound care nurse practitioner I had seen the patient and placed a bandage on the fourth digit. Discharge Data Studies Completed and Pending Completed Studies During Hospitalization Category Date Time Status CT foot LT wo con* [id number] Routine Cat Scan 07/03/23 16:51 Completed US arterial duplex lower extremity LT [CV arterial Ultrasound 07/03/23 11:22 [place] [address]] Stat US venous duplex lower extremity bilat [CV venous Ultrasound 07/03/23 11:22 [place] [id number]] Stat Pending at discharge Category Date Time Status Blood Culture Stat Lab 07/03/23 11:03 Results Radiology Impressions Duplex Scan Lower Extremity Artery 07/03/23 11:22 IMPRESSION: 1. No sign of hemodynamically significant arterial stenosis to the level of the popliteal artery in the left lower extremity. 2. Probable multifocal infrapopliteal arterial stenosis. Posterior tibial and dorsalis pedis arteries were interrogated. There is minimal low velocity flow in the posterior tibial artery. Dorsalis pedis artery is patent. 3. Irregular cardiac rhythm. Venous Duplex 07/03/23 11:22 IMPRESSION: No evidence of deep vein thrombosis. Foot CT 07/03/23 16:51 IMPRESSION: 1. Hallux valgus with bunion. 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 2. Subcutaneous edema at the dorsal forefoot is compatible with bland edema or cellulitis. No soft tissue gas or abscess. 3. No evidence of osteomyelitis. Laboratory Results WBC 8.70 10^3/uL (3.29-11.43) 07/04/23 04:42 Corrected WBC Cancelled 07/03/23 10:55 RBC 2.92 10^6/uL (3.85-5.65) L 07/04/23 04:42 Hgb 8.70 g/dL (11.27-16.99) L 07/04/23 04:42 Hct 27.9 % (37-53) L 07/04/23 04:42 MCV 95.5 fl (82-101) D 07/04/23 04:42 MCH 29.8 pg (27-33) 07/04/23 04:42 MCHC 31.2 g/dL (30-55) 07/04/23 04:42 RDW 16.5 % (12.1-15.1) H 07/04/23 04:42 Plt Count 160 10^3/cmm (157-399) 07/04/23 04:42 MPV 10.1 fL (7.4-10.4) 07/04/23 04:42 Gran % Cancelled 07/03/23 10:55 Neut % (Auto) 69.8 % 07/04/23 04:42 Lymph % (Auto) 13.9 % 07/04/23 04:42 [place] % (Auto) 13.3 % 07/04/23 04:42 Eos % (Auto) 1.7 % 07/04/23 04:42 Baso % (Auto) 0.7 % 07/04/23 04:42 Neut # (Auto) 6.07 10^3/uL (1.8-7.7) 07/04/23 04:42 Lymph # (Auto) 1.2 10^3/uL (0.8-4.8) 07/04/23 04:42 [place] # (Auto) 1.2 10^3/uL (0.2-0.9) H 07/04/23 04:42 Eos # (Auto) 0.2 10^3/uL (0.0-0.8) 07/04/23 04:42 Baso # (Auto) 0.1 10^3/uL (0.0-0.1) 07/04/23 04:42 Absolute Gran (auto) Cancelled 07/03/23 10:55 Nucleated RBC % (auto) 0 % 07/04/23 04:42 Nucleated RBCs # 0.0 /100WBC 07/04/23 04:42 ESR 70 mm/hr (0-10) H 07/03/23 11:36 Sodium 135 mmol/L (136-145) L 07/06/23 04:55 Potassium 4.2 mmol/L (3.5-5.1) 07/06/23 04:55 Chloride 98 mmol/L (98-107) 07/06/23 04:55 Carbon Dioxide 24 mmol/L (22-29) 07/06/23 04:55 Anion Gap 17.2 (5-19) 07/06/23 04:55 BUN 38 mg/dL (8-23) H 07/06/23 04:55 Creatinine 4.8 mg/dL (0.7-1.2) H 07/06/23 04:55 GFR Calculation Not Reportable 07/06/23 04:55 Glucose 124 mg/dL (65-115) H 07/06/23 04:55 POC Glucose 109 mg/dL (70-110) 07/06/23 06:18 Estimat Average Glucose 123 07/04/23 04:42 Hemoglobin A1c 5.9 % (4.0-6.0) 07/04/23 04:42 Calculated Osmolality 290 mOsm/kg (285-295) 07/06/23 04:55 Lactic Acid 1.5 mmol/L (0.5-2.2) 07/03/23 11:03 Calcium 9.2 mg/dL (8.5-10.5) 07/06/23 04:55 Phosphorus 5.0 mg/dL (2.5-4.5) H 07/06/23 04:55 Magnesium 2.2 mg/dL (1.7-2.3) 07/06/23 04:55 Iron 31 ug/dL (59-158) L 07/03/23 10:55 TIBC 182 mcg/dl 07/03/23 10:55 % Saturation 17.0 % (20-50) L 07/03/23 10:55 Unsat Iron Binding 151 ug/dL (112-347) 07/03/23 10:55 Total Bilirubin 0.5 mg/dL (0.15-1.2) 07/04/23 04:42 AST 14 U/L (0-40) 07/04/23 04:42 ALT 10 U/L (0-41) 07/04/23 04:42 Alkaline Phosphatase 81 U/L (40-130) 07/04/23 04:42 C-Reactive Protein 259.5 mg/L (0.0-4.9) H 07/03/23 11:36 Total Protein 6.8 g/dL (6.6-8.7) 07/04/23 04:42 Albumin 2.9 g/dL (3.5-5.2) L 07/04/23 04:42 Globulin 3.9 g/dL (1.3-4.6) 07/04/23 04:42 Triglycerides 71 mg/dL (0-150) 07/04/23 04:42 Cholesterol 69 mg/dL (0-200) 07/04/23 04:42 LDL Cholesterol, Calc 27 mg/dL (50-129) L 07/04/23 04:42 Total VLDL Cholesterol 14 mg/dL (0-30) 07/04/23 04:42 HDL Cholesterol 28 mg/dL (60-100) L 07/04/23 04:42 Cholesterol/HDL Ratio 2.46 mg/dL (1.0-5.00) 07/04/23 04:42 Vitamin B12 969 pg/mL (232-1245) 07/03/23 10:55 Folate > 20.0 ng/mL (4.5-32.2) 07/04/23 04:42 Procalcitonin 0.40 ng/mL (0-0.5) 07/03/23 10:55 TSH 1.71 uIU/mL (0.27-4.20) 07/03/23 10:55 Urine Color Yellow (Yellow) 07/03/23 15:40 Urine Appearance Clear (CLEAR) 07/03/23 15:40 Urine pH 9 (5-7) H 07/03/23 15:40 Ur Specific [place] 1.010 (1.005-1.030) 07/03/23 15:40 Urine Protein 2+ (Negative) H 07/03/23 15:40 Urine Glucose (UA) 2+ (Normal) H 07/03/23 15:40 Urine Ketones Negative (Negative) 07/03/23 15:40 Urine Blood Neg (Negative) 07/03/23 15:40 Urine Nitrate Negative (Negative) 07/03/23 15:40 Urine Bilirubin Neg (Negative) 07/03/23 15:40 Prot Sulfosalicylic Acd Positive (Negative) 07/03/23 15:40 Urine Urobilinogen Norm mg/dL (Negative) 07/03/23 15:40 Ur Leukocyte Esterase Negative (Negative) 07/03/23 15:40 Urine RBC None /hpf (0-2) 07/03/23 15:40 Urine WBC None /hpf (0-5) 07/03/23 15:40 Ur Squamous Epith Cells None /hpf (0-5) 07/03/23 15:40 Amorphous Sediment Not Reportable 07/03/23 15:40 Urine Bacteria None /hpf (NONE) 07/03/23 15:40 Random Vancomycin 19.4 ug/mL (20.0-40.0) L 07/04/23 04:42 Hep Bs Antigen Non-reactive (Nonreactive) 07/04/23 04:42 Hepatitis C Antibody Non-reactive (Nonreactive) 07/04/23 04:42 Vitals Last Vital Signs Temp 97.9 F 07/06/23 08:27 Pulse 70 07/06/23 08:27 Resp 18 07/06/23 08:27 BP 153/95 07/06/23 08:27 Pulse Ox 97 07/06/23 08:00 O2 Del Method Nasal Cannula 07/06/23 08:00 O2 Flow Rate 4 07/06/23 08:00 Discharge Plan Discharge Patient Disposition: Home Condition: Stable Prescriptions: New amoxicillin-pot clavulanate [Augmentin] 500-125 mg tablet 1 tab PO Q12H Qty: 20 0RF Continued atorvastatin 80 mg tablet 80 mg PO DAILY@1800 Mircera 30 mcg/0.3 mL syringe 60 mcg SUBCUT Q14D gabapentin 300 mg capsule 300 mg PO BID@09,18 sevelamer carbonate [Renvela] 800 mg tablet 2,400 mg PO TID@09,12,18 albuterol sulfate 90 mcg/actuation HFA aerosol inhaler 2 puff inhalation Q6H PRN (Reason: shortness of breath or wheezing) 30 Days Qty: 8.5 3RF famotidine [Pepcid] 20 mg tablet 20 mg PO BID@,18 Saxenda 3 mg/0.5 mL (18 mg/3 mL) pen injector 3 mg SUBCUT DAILY PRN (Reason: weight loss) cholecalciferol (vitamin D3) 50 mcg (2,000 unit) capsule 50 mcg PO QAM Daliresp 250 mcg tablet 500 mcg PO QAM spironolactone 50 mg tablet 50 mg PO DAILY@09 Qty: 90 1RF (DME) Diabetic Shoes with 3 Custom Inserts See Rx Instructions .Route .MEDSUPPLY Qty: 1 0RF Rx Instructions: As directed isosorbide mononitrate 30 mg tablet extended release 24 hr 15 mg PO BID Qty: 90 3RF allopurinol 100 mg Tablet 100 mg PO DAILY PRN (Reason: Gout) oxycodone-acetaminophen 5-325 mg Tablet 1 tab PO BEDTIME Rx Instructions: May also take 1/2 tab prn docusate sodium 100 mg Capsule 200 mg PO BID@09,18 insulin glargine [Lantus U-100 Insulin] 100 unit/mL Solution 35 unit SUBCUT QAM Stiolto Respimat 2.5-2.5 mcg/actuation mist 2 puff inhalation QAM albuterol sulfate 2.5 mg /3 mL (0.083 %) Solution For Nebulization 2.5 mg inhalation Q6H PRN (Reason: Shortness Of Breath) lidocaine-prilocaine 2.5-2.5 % Cream 1 applic topical TID PRN (Reason: Pain) carvedilol 6.25 mg tablet See Rx Instructions .ROUTE .COMPLEX Rx Instructions: 6.25mg (1 tab) in AM & 3.125mg (0.5 tab) in PM furosemide 40 mg tablet 40 mg PO QAM cyclobenzaprine 10 mg Tablet 10 mg PO TID PRN (Reason: Muscle Spasm) carboxymethylcellulose sodium 0.5 % Drops 1 drp OPHTHALMIC (EYE) QID PRN (Reason: Dry Eye(S)) polyethylene glycol 3350 17 gram/dose Powder 4 g PO DAILY PRN (Reason: Constipation) apixaban 5 mg tablet 5 mg PO BID doxycycline hyclate 100 mg tablet 100 mg PO BID 10 Days Qty: 20 0RF omega-3 fatty acids 1,000 mg Capsule 1,000 mg PO BID@09,18 cetirizine [Zyrtec] 10 mg Tablet 10 mg PO DAILY@18 ondansetron HCl 8 mg Tablet 4 mg PO Q6H PRN (Reason: Nausea And Vomiting) nitroglycerin [Nitrostat] 0.4 mg Tablet, Sublingual 0.4 mg SUBLINGUAL Q5M PRN (Reason: Chest Pain) Rx Instructions: do not exceed 3 doses per episode doxercalciferol 1 mcg Capsule 1 mcg PO .THREE TIMES A WEEK Brilinta 90 mg Tablet 90 mg PO BID RenaPlex 800 mcg- 12.5 mg Tablet 1 tab PO QAM Referrals: Adria Artis DO [Primary Care Provider] - Demetria Coombs NP [Nurse Practitioner] - 1-3 days Discharge Diet: Usual diet Discharge Activity: Limit activity as instructed Patient Instructions: Dialysis Diet (DC) Discharge Attestations Time Spent in Discharge Care*: less than 30 min Quality Metrics Clinical Quality Measures [ No reported AMI, CVA or VTE this stay] Coding Level of Care Code Acute Code for Chg Fwd Diagnoses Gram-negative bacteremia R78.81 Diabetic foot ulcer E11.621; L97.509 Diabetes mellitus type: type 2 Diabetic foot ulcer location: toe End-stage renal disease (ESRD) N18.6 Atrial fibrillation I48.91 Diabetes mellitus E11.9 S/P PTCA (percutaneous transluminal coronary angioplasty) Z98.61
--- NOTE | 2023-07-06 10:49 | P.PN_ITS ---
Subjective Subjective: Mr. Mullen reports no events overnight. The erythema and edema to the right lower extremity look somewhat improved. The wound to the dorsal surface of the fourth toe appears to be stable with no drainage at this time. Wound was cleansed with normal saline. Wound swabbed with iodine and covered with 2x2 gauze and secured with tape. Medications: Reviewed: Yes Vitals/I&O/Wt Last Vital Signs Temp 97.9 F 07/06/23 08:27 Pulse 70 07/06/23 08:27 Resp 18 07/06/23 08:27 BP 153/95 07/06/23 08:27 Pulse Ox 97 07/06/23 08:00 O2 Del Method Nasal Cannula 07/06/23 08:00 O2 Flow Rate 4 07/06/23 08:00 07/05/23 07/06/23 07/06/23 22:59 06:59 14:59 Intake Total 770 / 1490 530 / 2020 360 / 360 Output Total 500 / 500 Balance 270 / 990 530 / 1520 360 / 360 Weight last 48 hrs Weight 128 kg Physical Exam Narrative: Morbidly obese white male seen reclining in a chair in his room with family. Heart: Regular normal S1-S2 with no loud murmur Lungs clear to auscultation without wheezes rales or rhonchi Abdomen obese soft nontender nondistended positive bowel sounds Extremities left foot shows slight improvement of the severity of erythema. Wound to dorsal surface of left fourth toe is dry and clean. Bandage changed and intact. Data 07/04/23 04:42 07/06/23 04:55 A&P Assessment and plan (1) Diabetic foot ulcer: Wound to dorsal surface of left fourth toe. Dried exudate in place. No drainage noted. Qualifiers: Diabetes mellitus type: type 2 Diabetic foot ulcer location: toe Plan Continue daily dressing changes: Cleanse with saline. Iodine swab to dorsal surface of left fourth toe. Cover with 2x2 gauze and secure with tape. Attestations 2 Medical Necessity Statement*: Admission for more than 2 midnights for management of soft tissue cellulitis in setting of diabetes. Time Spent in Patient Care: 16 - 35 minutes 20 minutes Coding Level of Care Code 64968 Diagnoses Diabetic foot ulcer E11.621; L97.509 Diabetes mellitus type: type 2 Diabetic foot ulcer location: toe Time Spent (min) 20
[2023-07-06] MEDS: epoetin alfa (ESRD) 5,000 UNIT in SYRINGE 1 EACH 100 UNIT IVP (11:46)
[2023-07-06 13:47] LABS: Glucose Point of Care 196 mg/dL (70-110)
--- NOTE | 2023-07-06 14:47 | PC.NURSE ---
Discharge Note Patient discharged to home via private vehicle accompanied by . Discharge instructions reviewed with patient and/or franchise sales representative. Mobile pharmacy medications and/or prescriptions provided. Belongings/home medications returned.
--- NOTE | 2023-07-06 15:28 | PM.PN ---
Subjective Subjective: gettinG HD Medications: Reviewed: Yes Vitals/I&O/Wt Last Vital Signs Temp 98.2 F 07/06/23 14:46 Pulse 69 07/06/23 14:46 Resp 16 07/06/23 14:46 BP 163/89 07/06/23 14:46 Pulse Ox 95 07/06/23 11:36 O2 Del Method Nasal Cannula 07/06/23 11:36 O2 Flow Rate 4 07/06/23 08:00 07/06/23 07/06/23 07/06/23 06:59 14:59 22:59 Intake Total / 2019 900.25 / 900.25 Output Total 2145 / 2145 Balance 530 / 1520 -1244.75 / -1244.75 Weight last 48 hrs Weight 128 kg Weight 128 kg Physical Exam Const: COMMON NORMALS: no acute distress and alert Extremity: NARRATIVE EXTREMITY EXAM: redness left leg below knee to foot Neuro: SENSORIUM/ORIENTATION: Yes alert Data 07/04/23 04:42 07/06/23 04:55 A&P Assessment and plan (1) End-stage renal disease (ESRD): Plan 1. ESRD, HD MWF 2. Severe cellulitis left foot, leg. Gram stain BC 07/01 reported GNR,however nothing grew on cuture, Repeat BC no growth thus far, on zosyn and vancomycin 3. Anemia 4. DM, CAD, CHF, chronic hypotension Plan: HD today 3.5h, 1L UF, epogen 5000u IV. No IVs, blood draws, BPs right UE, renal diet Attestations Medical Necessity Statement*: per mediicne team Coding Level of Care Code Acute Code for Chg Fwd Diagnoses End-stage renal disease (ESRD) N18.6
== END 2023-07-06 15:31 | disposition home or self-care (01) | DRG 602 ==
LOC: ER 11:02 → MEDSURG 13:20
PROVIDERS: Internal Medicine; Student in an Organized Health Care Education/Training Program; Admitting Provider Student in an Organized Health Care Education/Training Program; Emergency Provider Family Medicine; PCP Emergency Medicine Emergency Medical Services; Visit Provider Internal Medicine
DX: L03.116 Cellulitis of left lower limb (principal); N18.6 End stage renal disease; I13.2 Hypertensive heart and chronic kidney disease with heart failure and with stage 5 chronic kidney disease, or end stage renal disease; I50.32 Chronic diastolic (congestive) heart failure; Z68.41 Body mass index [BMI] 40.0-44.9, adult; E11.22 Type 2 diabetes mellitus with diabetic chronic kidney disease; E11.51 Type 2 diabetes mellitus with diabetic peripheral angiopathy without gangrene; E11.40 Type 2 diabetes mellitus with diabetic neuropathy, unspecified; Z99.2 Dependence on renal dialysis; Z95.820 Peripheral vascular angioplasty status with implants and grafts; M21.612 Bunion of left foot; E66.01 Morbid (severe) obesity due to excess calories; Z79.891 Long term (current) use of opiate analgesic; Z79.4 Long term (current) use of insulin; Z79.02 Long term (current) use of antithrombotics/antiplatelets; I25.10 Atherosclerotic heart disease of native coronary artery without angina pectoris; J44.9 Chronic obstructive pulmonary disease, unspecified; Z99.81 Dependence on supplemental oxygen; I48.91 Unspecified atrial fibrillation; Z79.01 Long term (current) use of anticoagulants; D63.1 Anemia in chronic kidney disease; E78.00 Pure hypercholesterolemia, unspecified; I25.2 Old myocardial infarction; G47.33 Obstructive sleep apnea (adult) (pediatric); Z87.891 Personal history of nicotine dependence; Z87.01 Personal history of pneumonia (recurrent); Z95.0 Presence of cardiac pacemaker
CPT/HCPCS: 36415; 36416; 73700; 80048; 80053; 80061; 80202; 81001; 82607; 82746; 82962; 83036; 83540; 83550; 83605; 83735; 84100; 84145; 84443; 85025; 85651; 86140; 86803; 87040; 87150; 87205; 87340; 90935; 93005; 93926; 93970; 94664; 96365; 96367; 96372; 99232; 99252; 99285; J1644; J1815; J2270; J2543; J3370; J7050; Q3014; Q4081

== ENCOUNTER → 2023-07-12 08:16 | Outpatient (BNVA) | payer OTHER, SELFPAY | PROVIDERS: PCP Emergency Medicine Emergency Medical Services; Visit Provider Nurse Practitioner Family | DX: I96 Gangrene, not elsewhere classified (principal); L03.032 Cellulitis of left toe; S90.425D Blister (nonthermal), left lesser toe(s), subsequent encounter; X58.XXXD Exposure to other specified factors, subsequent encounter | CPT/HCPCS: 11042; 99213 ==

== ENCOUNTER → 2023-07-19 08:58 | Outpatient (BNVA) | payer OTHER, SELFPAY | PROVIDERS: PCP Emergency Medicine Emergency Medical Services; Visit Provider Nurse Practitioner Family | DX: I96 Gangrene, not elsewhere classified (principal); L03.032 Cellulitis of left toe | CPT/HCPCS: 97597 ==

== ENCOUNTER → 2023-07-26 10:35 | Outpatient (BNVA) | payer OTHER, SELFPAY | PROVIDERS: PCP Emergency Medicine Emergency Medical Services; Visit Provider Nurse Practitioner Family | DX: I96 Gangrene, not elsewhere classified (principal); L03.032 Cellulitis of left toe | CPT/HCPCS: 97597 ==

== ENCOUNTER → 2023-08-09 10:42 | Outpatient (BNVA) | payer OTHER, SELFPAY | PROVIDERS: PCP Emergency Medicine Emergency Medical Services; Visit Provider Nurse Practitioner Family | DX: I96 Gangrene, not elsewhere classified (principal); L97.522 Non-pressure chronic ulcer of other part of left foot with fat layer exposed; L03.032 Cellulitis of left toe | CPT/HCPCS: 11042 ==

== ENCOUNTER → 2023-08-16 10:48 | Outpatient (BNVA) | payer OTHER, SELFPAY | PROVIDERS: PCP Emergency Medicine Emergency Medical Services; Visit Provider Nurse Practitioner Family | DX: I96 Gangrene, not elsewhere classified (principal); L97.522 Non-pressure chronic ulcer of other part of left foot with fat layer exposed; L03.032 Cellulitis of left toe | CPT/HCPCS: 97597; A6210 ==

== ENCOUNTER → 2023-08-23 10:49 | Outpatient (BNVA) | payer OTHER, SELFPAY | PROVIDERS: PCP Emergency Medicine Emergency Medical Services; Visit Provider Nurse Practitioner Family | DX: Z09 Encounter for follow-up examination after completed treatment for conditions other than malignant neoplasm (principal); Z87.2 Personal history of diseases of the skin and subcutaneous tissue | CPT/HCPCS: 99212 ==

== ENCOUNTER → 2023-09-07 12:39 | Outpatient (BNVA) | payer OTHER, SELFPAY | PROVIDERS: PCP Emergency Medicine Emergency Medical Services; Visit Provider Podiatrist Foot & Ankle Surgery | DX: N18.6 End stage renal disease (principal); Z99.2 Dependence on renal dialysis; L52 Erythema nodosum; M21.41 Flat foot [pes planus] (acquired), right foot; M21.42 Flat foot [pes planus] (acquired), left foot; L60.3 Nail dystrophy; M20.41 Other hammer toe(s) (acquired), right foot; M20.42 Other hammer toe(s) (acquired), left foot; M21.612 Bunion of left foot; E11.42 Type 2 diabetes mellitus with diabetic polyneuropathy; Z79.4 Long term (current) use of insulin | CPT/HCPCS: 11721; 99213 ==

== ENCOUNTER 2023-10-04 12:32 | Outpatient (CLI) | payer OTHER, SELFPAY ==
--- NOTE | 2023-10-04 14:00 | CT_ITS ---
WS: [id number] CT CHEST TECHNIQUE: Noncontrast CT of the chest with coronal and sagittal reformatted images. CLINICAL INFORMATION: R06.02 - Shortness of breath COMPARISON: CT chest 04/26/2022 DLP: 681.[address] scans at [facility] use at least one of these dose optimization techniques: automated e xposure control; mA and/or kV adjustment per patient size (includes targeted exams where dose is matc hed to clinical indication); or iterative reconstruction. FINDINGS: Moderate RIGHT pleural effusion improved compared to 04/26/2022. Persistent compressive atelectasis wi th air bronchograms in the RIGHT lower lobe. Moderate chronic emphysematous changes. Cardiomegaly. No rmal caliber thoracic aorta. Aortic calcification. Coronary calcification. Calcified mediastinal and hilar lymph nodes. Cardiomegaly. Slight patchy groundglass infiltrates in the LEFT lower lobe improve d compared to previous. Moderate thoracic kyphosis. Anterior hypertrophic changes thoracic spine. Small amount of perihepatic and perisplenic fluid. Small esophageal hiatal hernia. Fluid and food products in the stomach. Splen ic artery calcification. Enlarged celiac lymph node measuring 16 mm progressed compared to previous. IMPRESSION: 1. Moderate RIGHT pleural effusion improved compared to previous. Persistent compressive atelectasis RIGHT lower lobe with air bronchograms. 2. Improved patchy groundglass filtrates in the LEFT lower lobe. 3. Cardiomegaly. 4. No mediastinal or hilar lymphadenopathy. 5. Enlarged celiac axis lymph node in the upper abdomen measuring 16 mm. This may be reactive but no nspecific. Abdomen and pelvis could be further evaluated with CT. 6. Small amount of perihepatic and perisplenic fluid/ascites.
== END 2023-10-04 12:33 | disposition home or self-care (01) ==
LOC: RAD 12:32
PROVIDERS: PCP Emergency Medicine Emergency Medical Services; Visit Provider Internal Medicine Pulmonary Disease
DX: J98.11 Atelectasis (principal); I13.2 Hypertensive heart and chronic kidney disease with heart failure and with stage 5 chronic kidney disease, or end stage renal disease; I50.9 Heart failure, unspecified; N18.6 End stage renal disease; J91.8 Pleural effusion in other conditions classified elsewhere; R18.8 Other ascites; R59.0 Localized enlarged lymph nodes; I48.91 Unspecified atrial fibrillation; J96.21 Acute and chronic respiratory failure with hypoxia; Z99.2 Dependence on renal dialysis; Z87.891 Personal history of nicotine dependence; Z79.01 Long term (current) use of anticoagulants; E78.00 Pure hypercholesterolemia, unspecified; Z95.0 Presence of cardiac pacemaker; I25.2 Old myocardial infarction; Z95.5 Presence of coronary angioplasty implant and graft
CPT/HCPCS: 71250; 99215

== ENCOUNTER → 2023-12-13 10:05 | Outpatient (BNVA) | payer OTHER, SELFPAY | PROVIDERS: PCP Emergency Medicine Emergency Medical Services; Visit Provider Podiatrist Foot & Ankle Surgery | DX: N18.6 End stage renal disease (principal); Z99.2 Dependence on renal dialysis; M21.41 Flat foot [pes planus] (acquired), right foot; M21.42 Flat foot [pes planus] (acquired), left foot; L60.3 Nail dystrophy; M20.41 Other hammer toe(s) (acquired), right foot; M20.42 Other hammer toe(s) (acquired), left foot; L52 Erythema nodosum; M21.612 Bunion of left foot; E11.42 Type 2 diabetes mellitus with diabetic polyneuropathy; Z79.4 Long term (current) use of insulin | CPT/HCPCS: 11721 ==

== ENCOUNTER → 2024-01-12 10:44 | Outpatient (BNVA) | payer OTHER, SELFPAY | PROVIDERS: PCP Emergency Medicine Emergency Medical Services; Visit Provider Internal Medicine Pulmonary Disease | DX: J90 Pleural effusion, not elsewhere classified (principal); I50.9 Heart failure, unspecified; J98.4 Other disorders of lung; N18.6 End stage renal disease; Z99.2 Dependence on renal dialysis; R53.82 Chronic fatigue, unspecified; U09.9 Post COVID-19 condition, unspecified; J98.6 Disorders of diaphragm; Z87.891 Personal history of nicotine dependence | CPT/HCPCS: 99214 ==

== ENCOUNTER → 2024-03-27 07:40 | Outpatient (BNVA) | payer OTHER, SELFPAY | PROVIDERS: PCP Emergency Medicine Emergency Medical Services; Visit Provider Podiatrist Foot & Ankle Surgery | DX: N18.6 End stage renal disease (principal); Z99.2 Dependence on renal dialysis; M21.41 Flat foot [pes planus] (acquired), right foot; M21.42 Flat foot [pes planus] (acquired), left foot; L60.3 Nail dystrophy; M20.41 Other hammer toe(s) (acquired), right foot; M20.42 Other hammer toe(s) (acquired), left foot; M21.612 Bunion of left foot; E11.42 Type 2 diabetes mellitus with diabetic polyneuropathy; Z79.4 Long term (current) use of insulin | CPT/HCPCS: 99213 ==

== ENCOUNTER → 2024-04-24 08:47 | Outpatient (BNVA) | payer OTHER, SELFPAY | PROVIDERS: PCP Nurse Practitioner Family; Visit Provider Nurse Practitioner Family | DX: I13.2 Hypertensive heart and chronic kidney disease with heart failure and with stage 5 chronic kidney disease, or end stage renal disease (principal); E11.22 Type 2 diabetes mellitus with diabetic chronic kidney disease; N18.6 End stage renal disease; I50.9 Heart failure, unspecified; Z79.4 Long term (current) use of insulin; I48.21 Permanent atrial fibrillation; I25.10 Atherosclerotic heart disease of native coronary artery without angina pectoris; Z95.0 Presence of cardiac pacemaker; Z87.891 Personal history of nicotine dependence | CPT/HCPCS: 99214 ==

== ENCOUNTER → 2024-06-26 11:00 | Outpatient (BNVA) | payer OTHER, SELFPAY | PROVIDERS: PCP Nurse Practitioner Family; Visit Provider Podiatrist Foot & Ankle Surgery | DX: N18.6 End stage renal disease (principal); Z99.2 Dependence on renal dialysis; L60.3 Nail dystrophy; M21.612 Bunion of left foot; E11.42 Type 2 diabetes mellitus with diabetic polyneuropathy; Z79.4 Long term (current) use of insulin | CPT/HCPCS: 11721 ==

== ENCOUNTER → 2024-09-25 08:02 | Outpatient (BNVA) | payer OTHER, SELFPAY | PROVIDERS: PCP Nurse Practitioner Family; Visit Provider Podiatrist Foot & Ankle Surgery | DX: N18.6 End stage renal disease (principal); Z99.2 Dependence on renal dialysis; L60.3 Nail dystrophy; M21.612 Bunion of left foot; E11.42 Type 2 diabetes mellitus with diabetic polyneuropathy; Z79.4 Long term (current) use of insulin | CPT/HCPCS: 11721 ==

== ENCOUNTER → 2024-10-25 09:47 | Outpatient (BNVA) | payer OTHER, SELFPAY | PROVIDERS: PCP Nurse Practitioner Family; Visit Provider Internal Medicine Cardiovascular Disease | DX: I11.0 Hypertensive heart disease with heart failure (principal); I50.9 Heart failure, unspecified; I48.21 Permanent atrial fibrillation; I25.10 Atherosclerotic heart disease of native coronary artery without angina pectoris; Z95.0 Presence of cardiac pacemaker; I25.5 Ischemic cardiomyopathy; J44.9 Chronic obstructive pulmonary disease, unspecified; Z87.891 Personal history of nicotine dependence; Z79.01 Long term (current) use of anticoagulants | CPT/HCPCS: 99214 ==

== ENCOUNTER 2024-11-27 08:58 | Outpatient (CLI) | payer OTHER, SELFPAY ==
--- NOTE | 2024-11-27 09:15 | USCV_ITS ---
Shon Mullen Age: 79 Gender: M : 1945 Exam Date: 11/27/2024 09:09 Ordering Phys: Megan Schwab MD ([email or web address]) Technologist: BELEM Exam Location: [facility] [place] Indication: SOB BP: 110 / 58 HR: 59 Rhythm: Sinus Technical Quality: Adequate MEASUREMENTS (Male / Female) Normal Values 2D ECHO LV Diastolic Diameter PLAX 5.7 cm 4.2 - 5.9 / 3.9 - 5.3 cm IVS Diastolic Thickness 1.1 cm 0.6 - 1.0 / 0.6 - 0.9 cm IVS Systolic Thickness 1.8 cm LVPW Diastolic Thickness 1.2 cm 0.6 - 1.0 / 0.6 - 0.9 cm LVPW Systolic Thickness 2.4 cm LVOT Diameter 2.0 cm LV Ejection Fraction 2D Teich 56.7 % LV Ejection Fraction MOD 4C 54.0 % LV Ejection Fraction MOD 2C 36.6 % LV Ejection Fraction 2C AL 35.8 % LA Diameter 5.4 cm RA Systolic Volume 4C AL 90.1 ml RA Systolic Volume 4C MOD 84.7 ml LA Sys Volume AL 107.9 cm cubed LA Sys Volume Index AL 42.5 cm cubed/m squared Aorta at Sinotubular Diameter 2.5 cm IVC Diameter 2.6 cm M-MODE LA Ao Ratio MM 1.4 AV Cusp Separation MM 1.5 cm DOPPLER AV Peak Velocity 125.0 cm/s LVOT Peak Velocity 74.0 cm/s AV Area Cont Eq vti 1.7 cm squared AV Area Cont Eq pk 1.9 cm squared MV Peak Velocity 99.0 cm/s MV Area PHT 3.1 cm squared Mitral E to A Ratio 2.7 TR Peak Velocity 252.0 cm/s TR Peak Gradient 25.4 mmHg TV Peak E Velocity 133.0 cm/s PV Peak Velocity 124.0 cm/s FINDINGS Left Ventricle Diffuse hypokinesia of the left ventricle with a paradoxical septal motion. LV ejection fraction 40% Right Ventricle Normal right ventricular size and systolic function. Catheter/pacemaker wire in the right ventricular cavity. Right Atrium Mildly increased right atrial size. Catheter/pacemaker wire in the right atrial appendage. Left Atrium Mildly increased left atrial size. Mitral Valve Thickened mitral valve. Mild mitral annular calcification. Moderate mitral annular calcification. Mild mitral valve regurgitation. Aortic Valve Thickened aortic valve. Tricuspid Valve Trace to mild tricuspid valve regurgitation. Pulmonic Valve Pulmonic valve not well visualized. Pericardium Normal pericardium without effusion. Aorta Normal ascending aorta dimension. IVC Normal inferior vena cava. CONCLUSIONS Diffuse hypokinesia of the left ventricle with a paradoxical septal motion. LV ejection fraction 40%. (visual) Normal right ventricular size and systolic function. Catheter/pacemaker wire in the right ventricular cavity. Mildly increased right atrial size. Catheter/pacemaker wire in the right atrial appendage. Mildly increased left atrial size. Thickened mitral valve. Mild mitral annular calcification. Moderate mitral annular calcification. Mild mitral valve regurgitation. Thickened aortic valve. Trace to mild tricuspid valve regurgitation. There is no pericardial effusion. There are no intracardiac masses. Normal inferior vena cava. Compared to the study from 03/08/2023, there is slight drop in the LV ejection fraction from 48% to 40% Dr Megan Schwab MD [facility] (Electronically Signed) Final Date: 30 November 2024 08:53 S
== END 2024-11-27 08:59 | disposition home or self-care (01) ==
PROVIDERS: PCP Nurse Practitioner Family; Visit Provider Internal Medicine Cardiovascular Disease
DX: R06.09 Other forms of dyspnea (principal); I51.9 Heart disease, unspecified; Z96.89 Presence of other specified functional implants; I51.7 Cardiomegaly; I34.81 Nonrheumatic mitral (valve) annulus calcification; I35.8 Other nonrheumatic aortic valve disorders
CPT/HCPCS: 93306

== ENCOUNTER → 2024-12-25 10:24 | Outpatient (BNVA) | payer OTHER, SELFPAY | PROVIDERS: PCP Nurse Practitioner Family; Visit Provider Podiatrist Foot & Ankle Surgery | DX: E11.42 Type 2 diabetes mellitus with diabetic polyneuropathy (principal); L60.3 Nail dystrophy; N18.6 End stage renal disease; Z99.2 Dependence on renal dialysis; M21.612 Bunion of left foot; Z79.4 Long term (current) use of insulin | CPT/HCPCS: 11721 ==

== ENCOUNTER → 2025-01-31 09:08 | Outpatient (BNVA) | payer OTHER, SELFPAY | PROVIDERS: PCP Nurse Practitioner Family; Visit Provider Nurse Practitioner Family | DX: I95.9 Hypotension, unspecified (principal); I13.2 Hypertensive heart and chronic kidney disease with heart failure and with stage 5 chronic kidney disease, or end stage renal disease; N18.6 End stage renal disease; I50.9 Heart failure, unspecified; Z99.2 Dependence on renal dialysis; I48.21 Permanent atrial fibrillation; Z79.01 Long term (current) use of anticoagulants; I25.10 Atherosclerotic heart disease of native coronary artery without angina pectoris; I25.5 Ischemic cardiomyopathy; J44.9 Chronic obstructive pulmonary disease, unspecified; Z95.0 Presence of cardiac pacemaker; Z95.5 Presence of coronary angioplasty implant and graft; Z87.891 Personal history of nicotine dependence; I25.2 Old myocardial infarction | CPT/HCPCS: 99213 ==

== ENCOUNTER → 2025-02-06 10:28 | Outpatient (BNVA) | payer OTHER, SELFPAY | PROVIDERS: PCP Nurse Practitioner Family; Visit Provider Internal Medicine Cardiovascular Disease | DX: Z45.018 Encounter for adjustment and management of other part of cardiac pacemaker (principal) | CPT/HCPCS: 93296 ==

== ENCOUNTER → 2025-02-26 08:47 | Outpatient (BNVA) | payer OTHER, SELFPAY | PROVIDERS: PCP Nurse Practitioner Family; Visit Provider Nurse Practitioner Family | DX: I25.10 Atherosclerotic heart disease of native coronary artery without angina pectoris (principal); I13.2 Hypertensive heart and chronic kidney disease with heart failure and with stage 5 chronic kidney disease, or end stage renal disease; N18.6 End stage renal disease; I50.20 Unspecified systolic (congestive) heart failure; Z99.2 Dependence on renal dialysis; I48.21 Permanent atrial fibrillation; Z79.01 Long term (current) use of anticoagulants; I95.9 Hypotension, unspecified; Z98.61 Coronary angioplasty status; Z87.891 Personal history of nicotine dependence; I25.2 Old myocardial infarction | CPT/HCPCS: 99214 ==

== ENCOUNTER 2025-02-27 06:19 | Inpatient (IN) | payer OTHER, SELFPAY ==
[2025-02-27] VITALS (81 sets, daily range): BP systolic 92–127; BP diastolic 50–74; PULSE 35–78; RESP 14–22; TEMP 36.4–37.4; O2SAT 82–100; BMI 39.4
--- NOTE | 2025-02-27 06:40 | ECG_ITS ---
[facility] Test Date: 2025-02-27 Pat Name: Shon Mullen Department: Room: Gender: Male [facility] Office Supervisor: : 1945 Requested By: Edgardo Espinoza Order Number: [id number] Dwight MD: Megan Schwab M.D. Measurements Intervals [place] Rate: 70 P: 0 MN: 0 QRS: -75 QRSD: 168 T: 38 QT: 469 QTc: 509 Interpretive Statements ATRIAL FIBRILLATION inappropriate pacing? RIGHT BUNDLE BRANCH BLOCK [120+ ms QRS DURATION, UPRIGHT V1, 40+ ms S IN I/aVL/V4/V5/V6] ANTERIOR MYOCARDIAL INFARCTION , OF INDETERMINATE AGE [40+ ms Q WAVE AND/OR ST/T ABNORMALITY IN V3/V4] INFERIOR MYOCARDIAL INFARCTION , PROBABLY OLD [40+ ms Q WAVE AND/OR ST/T ABNORMALITY IN II/aVF] Compared to ECG 07/03/2023 10:56:57 Right bundle-branch block now present Myocardial infarct finding now present possible lead malfunction, consider pacemaker interrogation Electronically Signed On 02-28-2025 06:07:15 CDT by Megan Schwab M.D. [email or web address]
--- NOTE | 2025-02-27 06:40 | XRR_ITS ---
PROCEDURE INFORMATION: Exam: XR Chest Exam date and time: 02/27/2025 6:45 AM Age: 79 years old Clinical indication: Cough and dyspnea; Prior surgery; Surgery date: 6+ months; Surgery type: Pacer; Additional info: Dyspnea/cough TECHNIQUE: Imaging protocol: Radiologic exam of the chest. Views: 1 view. COMPARISON: CT chest con [id number] 10/04/2023 12:49 PM FINDINGS: Lungs: Stable bibasilar pulmonary infiltrates. These appear chronic as they are unchanged since 2022. Blunted right costophrenic angle suggests pleural effusion. Pleural spaces: See Lungs finding. Heart/Mediastinum: Moderate cardiomegaly. Vasculature: Uncoiling of the thoracic aorta. Bones/joints: Unremarkable. XR/XR chest 1V portable [id number] IMPRESSION: 1. Chronic infiltrates and right effusion. 2. Cardiomegaly.
--- NOTE | 2025-02-27 06:42 | W.ED.EXTPRO ---
HPI - Extremity Problem General: Chief complaint: Extremity Injury, Lower Stated complaint: L leg pain, swelling, redness Time Seen by Provider: 02/27/25 06:31 History of Present Illness: 79-year-old male presents to the emergency room with redness pain and swelling on bilateral in his lower extremities. He states this started 2 weeks ago progressively worse. Patient has a history of diabetes mellitus history of coronary artery disease heart failure and has end-stage renal disease he is on dialysis. He is also chronically on oxygen. Presents to the emergency room because of the pain leg swelling. He has had increased redness so some skin breakdown medial aspect of the right leg. He denies any chest pain or worsening shortness of breath. No drainage from the wounds on the right leg. Patient reports he is up-to-date on his dialysis visits but he gets dialysis on Tuesday and he is due today. Associated symptoms: Deny chest pain or fever(s) Related Data Home Medications ?Medication ?Instructions ?Recorded ?Confirmed atorvastatin 80 mg tablet 80 mg PO DAILY@1800 10/02/19 02/27/25 gabapentin 300 mg capsule 300 mg PO BID@11/07/19 02/27/25 sevelamer carbonate 800 mg tablet 2,400 mg PO TID@,11/07/19 02/27/25 (Renvela) docusate sodium 100 mg capsule 200 mg PO BID@09/17/20 02/27/25 allopurinol 100 mg tablet 100 mg PO DAILY PRN Gout 11/11/20 02/27/25 insulin glargine 100 unit/mL 35 unit SUBCUT QAM 07/13/21 02/27/25 subcutaneous solution (Lantus U-100 Insulin) cholecalciferol (vitamin D3) 50 50 mcg PO QAM 11/11/21 02/27/25 mcg (2,000 unit) capsule cetirizine 10 mg tablet (Zyrtec) 10 mg PO DAILY@04/26/22 02/27/25 omega-3 fatty acids 1,000 mg 1,000 mg PO BID@,04/26/22 02/27/25 capsule roflumilast 250 mcg tablet 500 mcg PO QAM 06/18/22 02/27/25 (Daliresp) vitamin B complex with vit C-folic 1 tab PO QAM 03/07/23 02/27/25 acid 800 mcg-zinc 12.5 mg tablet (RenaPlex) furosemide 40 mg tablet 40 mg PO QAM 06/20/23 02/27/25 cyclobenzaprine 10 mg tablet 10 mg PO TID PRN Muscle Spasm 07/01/23 02/27/25 polyethylene glycol 3350 17 4 g PO DAILY PRN Constipation 07/01/23 02/27/25 gram/dose oral powder pantoprazole 40 mg tablet,delayed 40 mg PO BID 10/25/24 02/27/25 release citalopram 20 mg tablet 10 mg PO QAM 01/31/25 02/27/25 azelastine 137 mcg (0.1 %) nasal 1 spray intranasal BID 02/27/25 02/27/25 spray fluticasone 100 mcg-salmeterol 50 1 inh inhalation BID 02/27/25 02/27/25 mcg/dose blistr powdr for inhalation (Wixela Inhub) fluticasone propionate 50 1 spray intranasal DAILY 02/27/25 02/27/25 mcg/actuation nasal spray,suspension (Flonase Allergy Relief) ketoconazole 2 % topical cream 1 applic topical BID 02/27/25 02/27/25 lidocaine-prilocaine 2.5 %-2.5 % 1 applic topical QID 02/27/25 02/27/25 topical cream nut.tx.imp.renal fxn,lac-reduc 1 ea PO DAILY 02/27/25 02/27/25 0.08 gram-1.8 kcal/mL oral liquid (Nepro Carb Steady) oxycodone-acetaminophen 5 mg-325 See Rx Instructions .Route 02/27/25 02/27/25 mg tablet .COMPLEX PRN Pain testosterone cypionate 200 mg/mL 200 mg IM Q14D 02/27/25 02/27/25 intramuscular syringe tiotropium bromide 2.5 2 puff inhalation DAILY 02/27/25 02/27/25 mcg/actuation mist for inhalation (Spiriva Respimat) Previous Rx's ?Medication ?Instructions ?Recorded albuterol sulfate 90 mcg/actuation 2 puff inhalation Q6H PRN 01/02/21 aerosol inhaler shortness of breath or wheezing 30 days #8.5 grams nitroglycerin 0.4 mg sublingual 0.4 mg sublingual Q5M PRN Chest 10/04/23 tablet (Nitrostat) Pain #25 tabs ticagrelor 90 mg tablet (Brilinta) 90 mg PO BID #180 tabs 11/15/23 triamcinolone acetonide 0.1 % 1 applic topical BID #453.6 grams 12/13/23 topical cream Afflo Vest #1 ea 01/12/24 Afflo Vest #1 ea 01/12/24 guaifenesin 100 mg/5 mL oral liquid 200 mg (10 mL) PO Q4H PRN cough 03/01/24 #473 mL Diabetic Shoes with 3 Custom #1 ea 03/27/24 Inserts diclofenac sodium 1 % topical gel 2 g topical QID 30 days #100 grams 06/26/24 (Voltaren Arthritis Pain) apixaban 2.5 mg tablet 2.5 mg PO BID #180 tabs 10/25/24 isosorbide mononitrate 30 mg 15 mg (1/2 x 30 mg) PO BID #90 tabs 10/25/24 tablet,extended release 24 hr metoprolol succinate 25 mg 12.5 mg (1/2 x 25 mg) PO DAILY #90 01/31/25 tablet,extended release 24 hr tabs midodrine 2.5 mg tablet 2.5 mg PO BID PRN low blood 02/26/25 pressure #60 tabs spironolactone 25 mg tablet 25 mg PO DAILY@09 #90 tabs 02/26/25 Allergies Allergy/AdvReac Type Severity Reaction Status Date / Time ciprofloxacin (From Cipro) Allergy rash Verified 02/26/25 09:02 felodipine Allergy rash Verified 02/26/25 09:02 sulfamethoxazole (From Allergy rash Verified 02/26/25 09:02 Septra) trimethoprim (From Septra) Allergy rash Verified 02/26/25 09:02 Review of Systems Const: Denies: fever(s) or chills Card: Reports: edema and swelling of feet/ankles; Denies: chest pain Resp: Denies: dyspnea GI: Denies: abdominal pain : Denies: dysuria, urinary frequency or urinary urgency Musc: Reports: extremity swelling; Denies: neck pain or back pain Skin/Breast: Reports: erythema and skin tenderness PFSH ED PFSH: Medical History Atrial fibrillation NSTEMI (non-ST elevated myocardial infarction) End-stage renal disease (ESRD) LV dysfunction Anemia Respiratory failure with hypoxia CHF (congestive heart failure) Chronic anticoagulation ESRD (end stage renal disease) Myocardial infarct Renal failure Heart failure Small airways disease Restrictive lung disease Diabetes mellitus Hypercholesteremia Neuropathy Pneumonia MARAL (obstructive sleep apnea) CAD (coronary artery disease) Pacemaker Accelerated essential hypertension Surgical History Peritoneal dialysis status (03/02/21) removed History of colonoscopy with polypectomy 2020 Hemodialysis access, AV graft S/P cataract surgery S/P PTCA (percutaneous transluminal coronary angioplasty) S/P cardiac pacemaker procedure S/P dialysis catheter insertion Family History Mother Heart disease Social History Smoking and tobacco/nicotine status: former use of tobacco/nicotine Quit status (tobacco/nicotine): has quit using Year quit tobacco: 1984 Former quit date comment: 3PPD x 17 Years Second hand smoke exposure: No Alcohol intake: never Substance/Drug Use: never Lives independently: Yes Household members: spouse Housing: House Marital status: service: Yes Current occupational status: retired Pets and animals: No Do you think of yourself as: Straight/Heterosexual Current gender identity: Male Physical Exam Const: GENERAL APPEARANCE: cooperative ORIENTATION/CONSCIOUSNESS: Yes awake, Yes oriented to person, Yes oriented to place and Yes oriented to time HENMT: COMMON NORMALS: normocephalic, atraumatic and hearing grossly normal bilaterally HEAD & SCALP: normocephalic and atraumatic Resp: COMMON NORMALS: normal respiratory effort, No retractions, No use of accessory muscles and clear to auscultation bilaterally AUSCULTATION: clear to auscultation bilaterally Cardio: COMMON NORMALS: regular rate and No murmurs present (Cardio) RATE: regular rate RHYTHM: abnormal rhythm irregularly irregular GI: COMMON NORMALS: Soft to palpation and No hepatosplenomegaly present AUSCULTATION: Yes normoactive bowel sounds PALPATION: Yes Soft to palpation, No Tenderness to palpation present (GI), No Guarding due to palpation present (GI) and Yes No hepatosplenomegaly present Extremity: OTHER: Pitting edema to the level of the mid thigh. Breakdown of the skin with mucousy wet eschar on the medial aspect of the right lower leg no vesicles no active drainage at this time. Lower extremities bilaterally are red and warm to the touch to the level of the mid calf. Neuro: SENSORIUM/ORIENTATION: Yes oriented to person, Yes oriented to place and Yes oriented to time Skin: COMMON NORMALS: no rashes or lesions noted GENERAL SKIN EXAM: no rashes or lesions noted Course Vital Signs: Vital signs: Vital Signs Temperature 97.9 F 02/27/25 06:23 Pulse Rate 58 L 02/27/25 10:44 Respiratory Rate 15 02/27/25 10:44 Blood Pressure 109/68 02/27/25 10:44 Pulse Oximetry 96 02/27/25 10:44 Oxygen Delivery Me thod Nasal Cannula 02/27/25 09:11 Oxygen Flow Rate 4 02/27/25 09:11 MDM - Extremity (Nontraumatic) Medical Decision Making Negative for DVT bilateral lower extremity ultrasound. Will admit for cellulitis lactic slightly elevated white count normal. Started on linezolid cultures done. He gets dialysis Tuesday will likely need extra dialysis he is due today he did get his last dialysis run. Discussed with hospitalist orders written Medical Records I reviewed the patient's medical records. Lab Data I reviewed the patient's lab results. 02/27/25 06:50 02/27/25 06:50 Radiology Impressions Chest X-Ray 02/27/25 06:40 IMPRESSION: 1. Chronic infiltrates and right effusion. 2. Cardiomegaly. Laboratory Results WBC 7.93 10^3/uL (3.29-11.43) 02/27/25 06:50 RBC 3.71 10^6/uL (3.85-5.65) L 02/27/25 06:50 Hgb 11.40 g/dL (11.27-16.99) 02/27/25 06:50 Hct 35.7 % (37-53) L 02/27/25 06:50 MCV 96.2 fl (82-101) 02/27/25 06:50 MCH 30.7 pg (27-33) 02/27/25 06:50 MCHC 31.9 g/dL (30-55) 02/27/25 06:50 RDW 17.7 % (12.1-15.1) H 02/27/25 06:50 Plt Count 223 10^3/cmm (157-399) 02/27/25 06:50 MPV 10.4 fL (7.4-10.4) 02/27/25 06:50 Neut % (Auto) 77.0 % 02/27/25 06:50 Lymph % (Auto) 8.1 % 02/27/25 06:50 Smith % (Auto) 11.9 % 02/27/25 06:50 Eos % (Auto) 1.9 % 02/27/25 06:50 Baso % (Auto) 0.6 % 02/27/25 06:50 Neut # (Auto) 6.11 10^3/uL (1.8-7.7) 02/27/25 06:50 Lymph # (Auto) 0.6 10^3/uL (0.8-4.8) L 02/27/25 06:50 Smith # (Auto) 0.9 10^3/uL (0.2-0.9) 02/27/25 06:50 Eos # (Auto) 0.2 10^3/uL (0.0-0.8) 02/27/25 06:50 Baso # (Auto) 0.1 10^3/uL (0.0-0.1) 02/27/25 06:50 Nucleated RBC % (auto) 0 % 02/27/25 06:50 Nucleated RBCs # 0.0 /100WBC 02/27/25 06:50 Sodium 137 mmol/L (136-145) 02/27/25 06:50 Potassium 5.0 mmol/L (3.5-5.1) 02/27/25 06:50 Chloride 95 mmol/L (98-107) L 02/27/25 06:50 Carbon Dioxide 29 mmol/L (22-29) 02/27/25 06:50 Anion Gap 18.0 (5-19) 02/27/25 06:50 BUN 29 mg/dL (8-23) H 02/27/25 06:50 Creatinine 4.0 mg/dL (0.7-1.2) H 02/27/25 06:50 GFR Calculation Not Reportable 02/27/25 06:50 Glucose 140 mg/dL (65-115) H 02/27/25 06:50 Calculated Osmolality 292 mOsm/kg (285-295) 02/27/25 06:50 Lactic Acid 2.8 mmol/L (0.5-2.2) H 02/27/25 06:50 Lactic Acid (Sepsis) 2.0 mmol/L (0.5-2.2) 02/27/25 09:10 Calcium 8.7 mg/dL (8.5-10.5) 02/27/25 06:50 Total Bilirubin 0.7 mg/dL (0.15-1.2) 02/27/25 06:50 AST 15 U/L (0-40) 02/27/25 06:50 ALT 11 U/L (0-41) 02/27/25 06:50 Alkaline Phosphatase 124 U/L (40-130) 02/27/25 06:50 Total Protein 7.9 g/dL (6.6-8.7) 02/27/25 06:50 Albumin 3.2 g/dL (3.5-5.2) L 02/27/25 06:50 Globulin 4.7 g/dL (1.3-4.6) H 02/27/25 06:50 All radiology interpretation(s) finalized by discharge Discharge Plan Discharge Patient Disposition: Admitted As Inpatient Admit Provider: Karlos Crespo Condition: Stable Coding Level of Care Code ED Boom Conveyor Operator for Aurelia Chaudhari
--- NOTE | 2025-02-27 06:43 | USCV_ITS ---
Shon Mullen Age: 79 Gender: M : 1945 Exam Date: 02/27/2025 07:54 Ordering Phys: Edgardo Lorenz DO Technologist: Exam Location: [facility] [place] Indication: bilat edema PROCEDURES: The venous duplex Doppler examination of both lower extremities was performed in the standard fashion. Venous duplex imaging was performed in only the left lower extremity. The following venous structures were evaluated: common femoral vein, profunda vein, proximal portion of the greater saphenous vein, superficial femoral vein, and the popliteal vein. FINDINGS: Normal 2-D Doppler and augmentation and compressibility throughout the lower extremity venous structures. Additional imaging through the proximal calf veins also reveals no thrombus. Limited evaluation of the greater saphenous vein is patent with no thrombus. CONCLUSIONS No evidence of right lower extremity DVT. No evidence of left lower extremity DVT. Mc Lea MD (Electronically Signed) Final Date: 27 February 2025 08:59 S
--- NOTE | 2025-02-27 07:00 | PC.NURSE ---
this nurse informed pt of need for urine sample, pt states typically only can produce urine once a day and pt already urinated this morning. ED provider notified.
[2025-02-27 07:04] LABS: Basophils # 0.1 10^3/uL (0.0-0.1); Basophils % 0.6 %; Eosinophils # 0.2 10^3/uL (0.0-0.8); Eosinophils % 1.9 %; Hematocrit 35.7 % (37-53); Lymphocytes # 0.6 10^3/uL (0.8-4.8); Lymphocytes % 8.1 %; Mean Corpuscular HGB Conc 31.9 g/dL (30-55); Mean Corpuscular Hemoglobin 30.7 pg (27-33); Mean Corpuscular Volume 96.2 fl (82-101); Mean Platelet Volume 10.4 fL (7.4-10.4); Monocytes # 0.9 10^3/uL (0.2-0.9); Monocytes % 11.9 %; Neutrophils # 6.11 10^3/uL (1.8-7.7); Nucleated Red Blood Cells % 0 %; Platelet Count 223 10^3/cmm (157-399); Red Blood Count 3.71 10^6/uL (3.85-5.65); Red Cell Distribution Width 17.7 % (12.1-15.1); White Blood Count 7.93 10^3/uL (3.29-11.43)
[2025-02-27 07:17] LABS: Lactic Sepsis W/Reflex 2.8 mmol/L (0.5-2.2)
[2025-02-27 07:18] LABS: Alanine Aminotransferase 11 U/L (0-41); Albumin Level 3.2 g/dL (3.5-5.2); Alkaline Phosphatase 124 U/L (40-130); Blood Urea Nitrogen 29 mg/dL (8-23); Calcium 8.7 mg/dL (8.5-10.5); Carbon Dioxide 29 mmol/L (22-29); Chloride 95 mmol/L (98-107); Globulin 4.7 g/dL (1.3-4.6); Glucose 140 mg/dL (65-115); Osmolality Calculated 292 mOsm/kg (285-295); Sodium 137 mmol/L (136-145); Total Bilirubin 0.7 mg/dL (0.15-1.2); Total Protein 7.9 g/dL (6.6-8.7)
[2025-02-27 07:20] LABS: Aspartate Amino Transferase 15 U/L (0-40)
[2025-02-27 08:46] LABS: Reflex Lactate Order REFLEX LACTIC ORDERD
--- NOTE | 2025-02-27 09:22 | PC.NURSE ---
pt has periodic episodes of bradycardia, lasting few seconds. pt HR decreased to 35. pt does have pacemaker. pt denies chest pain, SOB. repositioned pt @0923, denies any further needs
[2025-02-27] MEDS: linezolid premix 600 MG/300 ML PREMIX 300 MG IV (10:22)
--- NOTE | 2025-02-27 11:00 | PM.HP ---
Providers/Chief Complaint Admitting Physician: Karlos Crespo Primary Care Provider: Lynnette Emerson APRN Chief Complaint: L leg pain, swelling, redness History of Present Illness Shon Mullen is a 79 year old male with a history of end-stage kidney disease on thrice-weekly dialysis (Tuesday, Tuesday, Tuesday), congestive heart failure, coronary artery disease, atrial fibrillation (on anticoagulation), restrictive lung disease, obstructive sleep apnea (uses CPAP at night), pacemaker, anemia, hyperlipidemia, hypertension, diabetes, and former tobacco use. The patient presented to the emergency department due to significant, progressively worsening bilateral lower extremity edema and redness over the past two weeks, with swelling extending up to the thighs and lower abdomen. The patient has not missed any dialysis sessions, with the last session on Tuesday; however, dialysis was not performed today due to concern for possible blood clot. There are new red spots on the left calf that appeared this morning, and chronic ulcers that recently reopened and have been draining, particularly on the right rhodes. The patient reports no fevers, chills, muscle aches, respiratory symptoms, gastrointestinal or genitourinary complaints, and continues to make some urine. The patient ambulates minimally with a walker and spends most of the day sitting or lying down. No pressure ulcers on the bottom. No recent changes in cough or oxygen requirements (uses 4L oxygen at home). No history of missed dialysis sessions or shortened treatments, though blood pressure sometimes runs low during dialysis, requiring medication to maintain systolic BP above 100 mmHg. No recent black or bloody stools, hematuria, or dysuria. No headaches or neurological complaints. Review of Systems Const: Denies: fever(s), chills, body aches or malaise ENMT: Denies: throat pain Card: Reports: edema and swelling of feet/ankles; Denies: chest pain, pre-syncope or dyspnea on exertion Resp: Denies: dyspnea, productive cough, change in phlegm color or hemoptysis GI: Denies: abdominal pain, nausea, vomiting, diarrhea, constipation, hematochezia or melena : Denies: flank pain, difficulty urinating, urinary frequency or hematuria Musc: Denies: back pain, joint swelling or joint redness Skin/Breast: Reports: erythema and sores Neuro: Denies: headache(s) or confusion Medications/Allergies Home Medications ?Medication ?Instructions ?Recorded ?Confirmed ?Last Taken ?Type atorvastatin 80 mg tablet 80 mg PO DAILY@1800 10/02/19 02/27/25 02/26/25 18:00 History gabapentin 300 mg capsule 300 mg PO BID@11/07/19 02/27/25 02/26/25 18:00 History sevelamer carbonate 800 mg tablet 2,400 mg PO TID@11/07/19 02/27/25 02/26/25 History (Renvela) docusate sodium 100 mg capsule 200 mg PO BID@09/17/20 02/27/25 02/26/25 18:00 History allopurinol 100 mg tablet 100 mg PO DAILY PRN Gout 11/11/20 02/27/25 02/26/25 History albuterol sulfate 90 mcg/actuation 2 puff inhalation Q6H PRN 01/02/21 02/27/25 02/23/21 Rx aerosol inhaler shortness of breath or wheezing 30 days #8.5 grams insulin glargine 100 unit/mL 35 unit SUBCUT QAM 07/13/21 02/27/25 02/26/25 07:00 History subcutaneous solution (Lantus U-100 Insulin) cholecalciferol (vitamin D3) 50 50 mcg PO QAM 11/11/21 02/27/25 02/26/25 History mcg (2,000 unit) capsule cetirizine 10 mg tablet (Zyrtec) 10 mg PO DAILY@04/26/22 02/27/25 02/26/25 18:00 History omega-3 fatty acids 1,000 mg 1,000 mg PO BID@04/26/22 02/27/25 02/26/25 History capsule roflumilast 250 mcg tablet 500 mcg PO QAM 06/18/22 02/27/25 02/26/25 07:00 History (Daliresp) vitamin B complex with vit C-folic 1 tab PO QAM 03/07/23 02/27/25 02/26/25 08:00 History acid 800 mcg-zinc 12.5 mg tablet (RenaPlex) furosemide 40 mg tablet 40 mg PO QAM 06/20/23 02/27/25 02/26/25 07:00 History cyclobenzaprine 10 mg tablet 10 mg PO TID PRN Muscle Spasm 07/01/23 02/27/25 Unknown History polyethylene glycol 3350 17 4 g PO DAILY PRN Constipation 07/01/23 02/27/25 06/30/23 History gram/dose oral powder nitroglycerin 0.4 mg sublingual 0.4 mg sublingual Q5M PRN Chest 10/04/23 02/27/25 Unknown Rx tablet (Nitrostat) Pain #25 tabs ticagrelor 90 mg tablet (Brilinta) 90 mg PO BID #180 tabs 11/15/23 02/27/25 02/26/25 Rx triamcinolone acetonide 0.1 % 1 applic topical BID #453.6 grams 12/13/23 02/27/25 Unknown Rx topical cream Afflo Vest #1 ea 01/12/24 02/27/25 Unknown Rx Afflo Vest #1 ea 01/12/24 02/27/25 Unknown Rx guaifenesin 100 mg/5 mL oral liquid 200 mg (10 mL) PO Q4H PRN cough 03/01/24 02/27/25 Unknown Rx #473 mL Diabetic Shoes with 3 Custom #1 ea 03/27/24 02/27/25 Unknown Rx Inserts diclofenac sodium 1 % topical gel 2 g topical QID 30 days #100 grams 06/26/24 02/27/25 Unknown Rx (Voltaren Arthritis Pain) apixaban 2.5 mg tablet 2.5 mg PO BID #180 tabs 10/25/24 02/27/25 02/26/25 Rx isosorbide mononitrate 30 mg 15 mg (1/2 x 30 mg) PO BID #90 tabs 10/25/24 02/27/25 02/26/25 Rx tablet,extended release 24 hr pantoprazole 40 mg tablet,delayed 40 mg PO BID 10/25/24 02/27/25 02/26/25 History release citalopram 20 mg tablet 10 mg PO QAM 01/31/25 02/27/25 02/26/25 History metoprolol succinate 25 mg 12.5 mg (1/2 x 25 mg) PO DAILY #90 01/31/25 02/27/25 Unknown Rx tablet,extended release 24 hr tabs midodrine 2.5 mg tablet 2.5 mg PO BID PRN low blood 02/26/25 02/27/25 Unknown Rx pressure #60 tabs spironolactone 25 mg tablet 25 mg PO DAILY@09 #90 tabs 02/26/25 02/27/25 Unknown Rx azelastine 137 mcg (0.1 %) nasal 1 spray intranasal BID 02/27/25 02/27/25 02/26/25 History spray fluticasone 100 mcg-salmeterol 50 1 inh inhalation BID 02/27/25 02/27/25 02/26/25 History mcg/dose blistr powdr for inhalation (Wixela Inhub) fluticasone propionate 50 1 spray intranasal DAILY 02/27/25 02/27/25 02/26/25 History mcg/actuation nasal spray,suspension (Flonase Allergy Relief) ketoconazole 2 % topical cream 1 applic topical BID 02/27/25 02/27/25 Unknown History lidocaine-prilocaine 2.5 %-2.5 % 1 applic topical QID 02/27/25 02/27/25 Unknown History topical cream nut.tx.imp.renal fxn,lac-reduc 1 ea PO DAILY 02/27/25 02/27/25 Unknown History 0.08 gram-1.8 kcal/mL oral liquid (Nepro Carb Steady) oxycodone-acetaminophen 5 mg-325 See Rx Instructions .Route 02/27/25 02/27/25 Unknown History mg tablet .COMPLEX PRN Pain testosterone cypionate 200 mg/mL 200 mg IM Q14D 02/27/25 02/27/25 02/12/25 History intramuscular syringe tiotropium bromide 2.5 2 puff inhalation DAILY 02/27/25 02/27/25 02/26/25 History mcg/actuation mist for inhalation (Spiriva Respimat) Allergies Allergy/AdvReac Type Severity Reaction Status Date / Time ciprofloxacin (From Cipro) Allergy rash Verified 02/26/25 09:02 felodipine Allergy rash Verified 02/26/25 09:02 sulfamethoxazole (From Allergy rash Verified 02/26/25 09:02 Septra) trimethoprim (From Septra) Allergy rash Verified 02/26/25 09:02 PFSH Acute PFSH: Medical History Atrial fibrillation NSTEMI (non-ST elevated myocardial infarction) End-stage renal disease (ESRD) LV dysfunction Anemia Respiratory failure with hypoxia CHF (congestive heart failure) Chronic anticoagulation ESRD (end stage renal disease) Myocardial infarct Renal failure Heart failure Small airways disease Restrictive lung disease Diabetes mellitus Hypercholesteremia Neuropathy Pneumonia MARAL (obstructive sleep apnea) CAD (coronary artery disease) Pacemaker Accelerated essential hypertension Surgical History Peritoneal dialysis status (03/02/21) removed History of colonoscopy with polypectomy 2020 Hemodialysis access, AV graft S/P cataract surgery S/P PTCA (percutaneous transluminal coronary angioplasty) S/P cardiac pacemaker procedure S/P dialysis catheter insertion Family History Mother Heart disease Social History Smoking and tobacco/nicotine status: former use of tobacco/nicotine Quit status (tobacco/nicotine): has quit using Year quit tobacco: 1984 Former quit date comment: 3PPD x 17 Years Second hand smoke exposure: No Alcohol intake: never Substance/Drug Use: never Lives independently: Yes Household members: spouse Housing: House Marital status: service: Yes Current occupational status: retired Pets and animals: No Do you think of yourself as: Straight/Heterosexual Current gender identity: Male Vitals/I&O/Wt Last Vital Signs Temp 97.9 F 02/27/25 06:23 Pulse 58 L 02/27/25 10:44 Resp 15 02/27/25 10:44 BP 109/68 02/27/25 10:44 Pulse Ox 96 02/27/25 10:44 O2 Del Method Nasal Cannula 02/27/25 09:11 O2 Flow Rate 4 02/27/25 09:11 Weight last 48 hrs Weight 124.738 kg Physical Exam Const: COMMON NORMALS: patient oriented x3 and alert GENERAL APPEARANCE: cooperative ORIENTATION/CONSCIOUSNESS: Yes awake HENMT: COMMON NORMALS: oropharynx normal Neck/C-Spine: COMMON NORMALS: no JVD Resp: COMMON NORMALS: normal respiratory effort and clear to auscultation bilaterally AUSCULTATION: clear to auscultation bilaterally Cardio: COMMON NORMALS: no JVD, regular rhythm, S1 normal heart sound present, S2 normal heart sound present and No murmurs present (Cardio) RHYTHM: regular rhythm HEART SOUNDS: S1 normal heart sound present and S2 normal heart sound present GI: COMMON NORMALS: Normal to inspection, nondistended, normoactive bowel sounds present, Soft to palpation and non-tender PALPATION: Yes Soft to palpation Extremity: COMMON NORMALS: no joint enlargement NARRATIVE EXTREMITY EXAM: Graft on the right medial forearm GENERAL: Yes edema (2+ BLLE) Neuro: COMMON NORMALS: patient oriented x3 and moves all extremities SENSORIUM/ORIENTATION: Yes alert Skin: NARRATIVE SKIN EXAM: Erythema, worse on the left, bilateral lower extremities below the knees. 3 small round red spots 1 about 1 cm, 1 7 mm and 1 3 mm in diameter, on upper medial left calf, without any break through skin, no ulceration, drainage. OTHER: Shallow ulcerations 1 about 5 mm and 1 about 12 mm in length and 5 across on mid anterior right rhodes, with some granulation tissue in the base, currently not draining. Data 02/27/25 06:50 02/27/25 06:50 Micro: Microbiology 02/27/25 06:54 Blood Culture - Preliminary Blood SPECIMEN COLLECTED 02/27/25 06:58 Blood Culture - Preliminary Blood SPECIMEN COLLECTED A&P Assessment and plan (1) Lower extremity edema: Bilateral lower extremity edema and cellulitis : Patient presents with two weeks of progressively worsening bilateral lower extremity edema and redness, with new red spots and draining ulcers. No missed dialysis sessions. No fevers or systemic symptoms. Cellulitis suspected and IV antibiotics started in the ED. Differential includes infection (cellulitis), possible blood clot (ultrasound ordered), and volume overload related to renal failure and CHF. No open ulcers on left leg, but new red spots noted. Right calf ulcers draining. No pressure ulcers on bottom. Infection risk increased due to chronic edema and skin breakdown. Reviewed vitals, CBC, CMP, EKG, on my interpretation atrial fibrillation with RBBB, pending official read, chest x-ray, venous duplex, ED provider note, discussed with ED provider. - Nephrology consultation, dialysis - Continue IV antibiotics (agent not specified) for cellulitis with linezolid, Zosyn. Monitor for risk of cytopenia, C. difficile, SJS. - Monitor for improvement in redness and edema. - Venous duplex ultrasound to rule out DVT. - Reassess after dialysis and antibiotic therapy. - Consider allergy testing in future to clarify antibiotic allergies. (2) Cellulitis: Worse on the left compared to the right. Does appear to have some chronic venous stasis, chronic ulcers on the mid right rhodes which now have reopened. Reviewed venous duplex, no evidence of DVT. Cellulitis superimposed on edema, will undergo dialysis today. (3) ESRD (end stage renal disease): End-stage kidney disease (on dialysis) : Patient with ESRD on thrice-weekly dialysis, last session Tuesday, missed today due to concern for blood clot. No missed sessions prior. Blood pressure sometimes runs low during dialysis, requiring medication support. Mild hyperkalemia noted (potassium upper normal at 5). - Resume dialysis as soon as feasible, possibly with extra session if needed for volume removal. - Monitor potassium and manage with renal diet. - Continue to monitor blood pressure during dialysis; use midodrine as needed for hypotension. Discussed with scientific manager, initial admission recommended to intensive care unit due to risk of blood pressure decreased with need for more intensive dialysis. (4) Leg ulcer: Leg ulcers on the right mid rhodes, chronic previously which had healed up but opened up recently again with worsened edema. Suspect venous stasis. Elevating extremities. Hemodialysis as above for fluid overload. Will need wound care follow-up. Plan CHF: Chronic systolic, continue diuresis with Lasix, dialysis. He does still make some urine. Prior ejection fraction 40% on review of echo from November. On chronic 4 L nasal cannula oxygen. Restrictive lung disease: Reports possible COPD, chronically on 4 L nasal cannula oxygen. Continue. DM2: Continue daily Lantus. Monitor POC glucose. Sliding scale insulin. Consistent carbohydrate diet. Atrial fibrillation : History of atrial fibrillation, on Eliquis. EKG shows atrial fibrillation and right bundle branch block (pending official read). - Continue Eliquis unless contraindicated. - Monitor cardiac rhythm and rate. Mild hyperkalemia : Potassium upper normal at 5, likely related to missed dialysis session today. No acute symptoms reported. - Monitor potassium levels. - Resume dialysis to facilitate potassium removal. - renal diet. PDMP PDMP Reviewed: Not Reviewed Attestations Medical Necessity Statement*: Place in observation for additional assessment management of fluid overload and gentleman with ESRD, underlying congestive heart failure with decreased ejection fraction, with lower extremity edema with superimposed cellulitis. and High MDM includes amount and/or complexity of data reviewed/ordered [ previous or external records, resulted lab(s)/test(s), ordered lab(s)/test(s), independent test interpretation and other healthcare professional discussion] and described risk of complication, morbidity or mortality of management as documented Diagnoses Lower extremity edema R60.0 Cellulitis L03.90 ESRD (end stage renal disease) N18.6 Leg ulcer L97.909
--- NOTE | 2025-02-27 11:17 | PC.NURSE ---
this nurse and tele-nephrology spoke with patient. per tele-cane piler to admit to ICU, states will place orders. plans for pt to have dialysis.
--- NOTE | 2025-02-27 11:30 | PM.CONSULT ---
Providers/Reason For Consult Consulting Physician/Specialty*: eugenia jurado md/ telenephrology Reason for Consult*: ESRD care Requesting Physician: DR Emma Angel Attending Physician: Karlos Crespo Primary Care Provider: Lynnette Emerson APRN History of Present Illness History of Present Illness Shon Mullen is a 79 year old male with a history of end-stage kidney disease on thrice-weekly dialysis (Tuesday, Tuesday, Tuesday), chronic Hf rEF of 40%, coronary artery disease, atrial fibrillation (on anticoagulation), restrictive lung disease, obstructive sleep apnea (uses CPAP at night), pacemaker, anemia, hyperlipidemia, hypertension, diabetes, and former tobacco use. The patient presented to the emergency department for lethargy, hyptension, leg edema and pain. There are new red spots on the left calf that appeared this morning, and chronic ulcers that recently reopened and have been draining, particularly on the right rhodes. The patient reports no fevers, chills, muscle aches, respiratory symptoms, gastrointestinal or genitourinary complaints, and continues to make some urine. The patient ambulates minimally with a walker and spends most of the day sitting or lying down. No pressure ulcers on the bottom. No recent changes in cough or oxygen requirements (uses 4L oxygen at home). pt is weak and lethargic Review of Systems Narrative: weak, lethargic, tired, hypotensive, denies fevers. ++ red lesions, tender legs, edema, headaches. no chills. no hearing issues. + diarrhea Medications/Allergies Home Medications ?Medication ?Instructions ?Recorded ?Confirmed ?Last Taken ?Type atorvastatin 80 mg tablet 80 mg PO DAILY@1800 10/02/19 02/27/25 02/26/25 18:00 History gabapentin 300 mg capsule 300 mg PO BID@11/07/19 02/27/25 02/26/25 18:00 History sevelamer carbonate 800 mg tablet 2,400 mg PO TID@11/07/19 02/27/25 02/26/25 History (Renvela) docusate sodium 100 mg capsule 200 mg PO BID@09/17/20 02/27/25 02/26/25 18:00 History allopurinol 100 mg tablet 100 mg PO DAILY PRN Gout 11/11/20 02/27/25 02/26/25 History albuterol sulfate 90 mcg/actuation 2 puff inhalation Q6H PRN 01/02/21 02/27/25 02/23/21 Rx aerosol inhaler shortness of breath or wheezing 30 days #8.5 grams insulin glargine 100 unit/mL 35 unit SUBCUT QAM 07/13/21 02/27/25 02/26/25 07:00 History subcutaneous solution (Lantus U-100 Insulin) cholecalciferol (vitamin D3) 50 50 mcg PO QAM 11/11/21 02/27/25 02/26/25 History mcg (2,000 unit) capsule cetirizine 10 mg tablet (Zyrtec) 10 mg PO DAILY@18 04/26/22 02/27/25 02/26/25 18:00 History omega-3 fatty acids 1,000 mg 1,000 mg PO BID@04/26/22 02/27/25 02/26/25 History capsule roflumilast 250 mcg tablet 500 mcg PO QAM 06/18/22 02/27/25 02/26/25 07:00 History (Daliresp) vitamin B complex with vit C-folic 1 tab PO QAM 03/07/23 02/27/25 02/26/25 08:00 History acid 800 mcg-zinc 12.5 mg tablet (RenaPlex) furosemide 40 mg tablet 40 mg PO QAM 06/20/23 02/27/25 02/26/25 07:00 History cyclobenzaprine 10 mg tablet 10 mg PO TID PRN Muscle Spasm 07/01/23 02/27/25 Unknown History polyethylene glycol 3350 17 4 g PO DAILY PRN Constipation 07/01/23 02/27/25 06/30/23 History gram/dose oral powder nitroglycerin 0.4 mg sublingual 0.4 mg sublingual Q5M PRN Chest 10/04/23 02/27/25 Unknown Rx tablet (Nitrostat) Pain #25 tabs ticagrelor 90 mg tablet (Brilinta) 90 mg PO BID #180 tabs 11/15/23 02/27/25 02/26/25 Rx triamcinolone acetonide 0.1 % 1 applic topical BID #453.6 grams 12/13/23 02/27/25 Unknown Rx topical cream Afflo Vest #1 ea 01/12/24 02/27/25 Unknown Rx Afflo Vest #1 ea 01/12/24 02/27/25 Unknown Rx guaifenesin 100 mg/5 mL oral liquid 200 mg (10 mL) PO Q4H PRN cough 03/01/24 02/27/25 Unknown Rx #473 mL Diabetic Shoes with 3 Custom #1 ea 03/27/24 02/27/25 Unknown Rx Inserts diclofenac sodium 1 % topical gel 2 g topical QID 30 days #100 grams 06/26/24 02/27/25 Unknown Rx (Voltaren Arthritis Pain) apixaban 2.5 mg tablet 2.5 mg PO BID #180 tabs 10/25/24 02/27/25 02/26/25 Rx isosorbide mononitrate 30 mg 15 mg (1/2 x 30 mg) PO BID #90 tabs 10/25/24 02/27/25 02/26/25 Rx tablet,extended release 24 hr pantoprazole 40 mg tablet,delayed 40 mg PO BID 10/25/24 02/27/25 02/26/25 History release citalopram 20 mg tablet 10 mg PO QAM 01/31/25 02/27/25 02/26/25 History metoprolol succinate 25 mg 12.5 mg (1/2 x 25 mg) PO DAILY #90 01/31/25 02/27/25 Unknown Rx tablet,extended release 24 hr tabs midodrine 2.5 mg tablet 2.5 mg PO BID PRN low blood 02/26/25 02/27/25 Unknown Rx pressure #60 tabs spironolactone 25 mg tablet 25 mg PO DAILY@09 #90 tabs 02/26/25 02/27/25 Unknown Rx azelastine 137 mcg (0.1 %) nasal 1 spray intranasal BID 02/27/25 02/27/25 02/26/25 History spray fluticasone 100 mcg-salmeterol 50 1 inh inhalation BID 02/27/25 02/27/25 02/26/25 History mcg/dose blistr powdr for inhalation (Wixela Inhub) fluticasone propionate 50 1 spray intranasal DAILY 02/27/25 02/27/25 02/26/25 History mcg/actuation nasal spray,suspension (Flonase Allergy Relief) ketoconazole 2 % topical cream 1 applic topical BID 02/27/25 02/27/25 Unknown History lidocaine-prilocaine 2.5 %-2.5 % 1 applic topical QID 02/27/25 02/27/25 Unknown History topical cream nut.tx.imp.renal fxn,lac-reduc 1 ea PO DAILY 02/27/25 02/27/25 Unknown History 0.08 gram-1.8 kcal/mL oral liquid (Nepro Carb Steady) oxycodone-acetaminophen 5 mg-325 See Rx Instructions .Route 02/27/25 02/27/25 Unknown History mg tablet .COMPLEX PRN Pain testosterone cypionate 200 mg/mL 200 mg IM Q14D 02/27/25 02/27/25 02/12/25 History intramuscular syringe tiotropium bromide 2.5 2 puff inhalation DAILY 02/27/25 02/27/25 02/26/25 History mcg/actuation mist for inhalation (Spiriva Respimat) Allergies Allergy/AdvReac Type Severity Reaction Status Date / Time ciprofloxacin (From Cipro) Allergy rash Verified 02/26/25 09:02 felodipine Allergy rash Verified 02/26/25 09:02 sulfamethoxazole (From Allergy rash Verified 02/26/25 09:02 Septra) trimethoprim (From Septra) Allergy rash Verified 02/26/25 09:02 PFSH Acute PFSH: Medical History Atrial fibrillation NSTEMI (non-ST elevated myocardial infarction) End-stage renal disease (ESRD) LV dysfunction Anemia Respiratory failure with hypoxia CHF (congestive heart failure) Chronic anticoagulation ESRD (end stage renal disease) Myocardial infarct Renal failure Heart failure Small airways disease Restrictive lung disease Diabetes mellitus Hypercholesteremia Neuropathy Pneumonia MARAL (obstructive sleep apnea) CAD (coronary artery disease) Pacemaker Accelerated essential hypertension Surgical History Peritoneal dialysis status (03/02/21) removed History of colonoscopy with polypectomy 2020 Hemodialysis access, AV graft S/P cataract surgery S/P PTCA (percutaneous transluminal coronary angioplasty) S/P cardiac pacemaker procedure S/P dialysis catheter insertion Family History Mother Heart disease Social History Smoking and tobacco/nicotine status: former use of tobacco/nicotine Quit status (tobacco/nicotine): has quit using Year quit tobacco: 1984 Former quit date comment: 3PPD x 17 Years Second hand smoke exposure: No Alcohol intake: never Substance/Drug Use: never Lives independently: Yes Household members: spouse Housing: House Marital status: service: Yes Current occupational status: retired Pets and animals: No Do you think of yourself as: Straight/Heterosexual Current gender identity: Male Vitals/I&O/Wt Last Vital Signs Temp 97.9 F 02/27/25 06:23 Pulse 58 L 02/27/25 10:44 Resp 15 02/27/25 10:44 BP 109/68 02/27/25 10:44 Pulse Ox 96 02/27/25 10:44 O2 Del Method Nasal Cannula 02/27/25 09:11 O2 Flow Rate 4 02/27/25 09:11 Weight last 48 hrs Weight 124.738 kg Physical Exam Narrative: When I see the patient, his blood pressure is on the low side. Also having waxing and waning mental status. Vital signs noted requiring oxygen. HEENT normocephalic/atraumatic. Neck is supple. Lungs dull bases. Heart irregular irregular positive systolic murmur positive S1-S2. Abdomen soft positive bowel sounds. Extremities significant edema. Redness both legs open lesions. Tenderness on the legs. Neuro - mental status is waxing and waning. Poor distal pulses. The patient was not Data 02/27/25 06:50 02/27/25 06:50 Micro: Microbiology 02/27/25 06:54 Blood Culture - Preliminary Blood SPECIMEN COLLECTED 02/27/25 06:58 Blood Culture - Preliminary Blood SPECIMEN COLLECTED A&P Assessment and plan (1) ESRD (end stage renal disease): 79-year-old man 1. ESRD will attempt dialysis today for 3 hours to remove fluids. Patient may need extra ultrafiltration. 2. Q cellulitis verus chronic leg wounds/ lymph edema per medicine 3. mild lactic acidosis 4. letahrgic- check abg, ammonia levels 5. a fib and chronic HFrEF- requires midodrine for dialysis. no pericardial effusion on November 2024 echo 6. check cortisol level. tsh please admit to icu for dialysis discussed w/ Dr Angel The patient was seen and examined with the aid of a nurse using audiovisual equipment. The patient consented to hemodialysis and to telehealth. I discussed this with the patient, his the nurse and hospitalist. Plan See above. PDMP PDMP Reviewed: Not Reviewed Consult Attestations Medical Necessity Statement: Hypotension, ESRD, cellulitis Time Spent in Patient Care: Greater than 35 minutes (>than 50% of time spent in counselling and/or direct pt care on unit). Coding Level of Care Code Acute Code for Chg Fwd Diagnoses ESRD (end stage renal disease) N18.6
[2025-02-27 11:57] LABS: ABG PCO2 48.3 mmHg (35-45); ABG PH Result 7.43 (7.35-7.45); Arterial Blood Gas Hematocrit 34.2 % (42-52); Base Excess ABG 6.4 mmol/L (-2.0-2.0); Blood Gas Allen Test Pos; Blood Gas Operator Identificat WALCI; Blood Gas Sample Site Radial, left; Blood Gas Sample Type Arterial; Carboxyhemoglobin 1.6 %THgb (0.4-20.1); HCO3 ABG 31.8 mmol/L (22-26); HGB O2 Sat 93.5 % (95-100); Ionized Calcium Level - ABG 1.1 mmol/L (1.1-1.4); Oxygen Device NC; PO2 ABG 81.8 mmHg (80.0-100.0); Potassium Level - ABG 4.5 mmol/L (3.5-5.0); Total Hemoglobin 11.2 g/dL (14-18)
[2025-02-27 12:18] LABS: Thyroid Stimulating Hormone 2.78 uIU/mL (0.27-4.20)
--- NOTE | 2025-02-27 13:19 | PC.NURSE ---
report called to MAY De La Vega in ICU, states room is not ready, will call when ready for pt. no further questions.
[2025-02-27 13:33] LABS: Hepatitis C Virus Antibody Non-Reactive (Nonreactive)
--- NOTE | 2025-02-27 13:49 | PC.NURSE ---
pt given turkey sandwich and water per diet order
[2025-02-27 13:59] LABS: Hepatitis B Surface Antigen Non-Reactive (Nonreactive)
[2025-02-27] MEDS: midodrine 5 mg TABLET PO (14:45)
[2025-02-27] MEDS: ipratropium-albuterol 3 mL Neb INHALATION ×2 (15:44→19:49)
--- NOTE | 2025-02-27 16:03 | PC.NURSE ---
confirmed medications insulin lidocaine topical and renvela ok to non admin the start dose at 1444 and continue with next scheduled dose instructions received to re-time zosyen after dialysis is complete
[2025-02-27 17:05] LABS: Glucose Point of Care 109 mg/dL (70-110)
[2025-02-27] MEDS: pantoprazole DR 40 mg Tablet PO (17:35)
[2025-02-27] MEDS: cetirizine 10 mg Tablet PO (17:35)
[2025-02-27] MEDS: apixaban 5 mg Tablet 2.5 MG PO (17:35)
[2025-02-27] MEDS: atorvastatin 40 mg Tablet 80 MG PO (17:37)
[2025-02-27] MEDS: sevelamer 800 mg Tablet 2400 MG PO (17:37)
[2025-02-27] MEDS: ticagrelor 90 mg Tablet PO (17:38)
[2025-02-27] MEDS: gabapentin 300 mg Capsule PO (17:40)
[2025-02-27] MEDS: docusate sodium 100 mg Capsule 200 MG PO (17:40)
--- NOTE | 2025-02-27 17:55 | PC.NURSE ---
Patients Imdur held to due v/s pulse dropping into 40s and hypotensive. Notified Dr. Newman as well.
[2025-02-27] MEDS: piperacillin-tazobactam 3.375 GM in sodium chloride 0.9% (plus) 50 ML IV (18:19)
[2025-02-27] MEDS: budesonide 0.5 mg/2 mL Neb 0.25 MG INHALATION (19:48)
[2025-02-27 21:31] LABS: Glucose Point of Care 162 mg/dL (70-110)
[2025-02-27] MEDS: insulin lispro 100 unit/1 mL SUBCUT (21:35)
[2025-02-28] VITALS (47 sets, daily range): BP systolic 94–145; BP diastolic 51–85; PULSE 43–88; RESP 14–29; TEMP 36.1–36.6; O2SAT 80–97
[2025-02-28] MEDS: ipratropium-albuterol 3 mL Neb INHALATION ×4 (02:45→20:11)
[2025-02-28 04:37] LABS: Basophils # 0.1 10^3/uL (0.0-0.1); Basophils % 0.8 %; Eosinophils # 0.2 10^3/uL (0.0-0.8); Eosinophils % 2.9 %; Hematocrit 34.8 % (37-53); Lymphocytes # 1.1 10^3/uL (0.8-4.8); Lymphocytes % 17.1 %; Mean Corpuscular HGB Conc 31.3 g/dL (30-55); Mean Corpuscular Hemoglobin 30.7 pg (27-33); Mean Platelet Volume 10.6 fL (7.4-10.4); Monocytes # 0.7 10^3/uL (0.2-0.9); Monocytes % 11.1 %; Neutrophils % 67.5 %; Nucleated Red Blood Cells % 0 %; Platelet Count 211 10^3/cmm (157-399); Red Blood Count 3.55 10^6/uL (3.85-5.65); Red Cell Distribution Width 17.7 % (12.1-15.1); White Blood Count 6.66 10^3/uL (3.29-11.43)
[2025-02-28 05:01] LABS: Magnesium 1.9 mg/dL (1.7-2.3); Phosphorus 3.8 mg/dL (2.5-4.5)
[2025-02-28 05:07] LABS: Alanine Aminotransferase 9 U/L (0-41); Albumin Level 3.2 g/dL (3.5-5.2); Alkaline Phosphatase 116 U/L (40-130); Aspartate Amino Transferase 9 U/L (0-40); Blood Urea Nitrogen 19 mg/dL (8-23); Carbon Dioxide 29 mmol/L (22-29); Chloride 96 mmol/L (98-107); Cortisol Random 14.49 ug/dL (2.47-19.5); Globulin 4.6 g/dL (1.3-4.6); Glucose 115 mg/dL (65-115); Osmolality Calculated 289 mOsm/kg (285-295); Sodium 138 mmol/L (136-145); Total Bilirubin 0.9 mg/dL (0.15-1.2); Total Protein 7.8 g/dL (6.6-8.7)
[2025-02-28 06:14] LABS: Glucose Point of Care 105 mg/dL (70-110)
[2025-02-28] MEDS: citalopram 20 mg Tablet 10 MG PO (06:19)
[2025-02-28] MEDS: FUROsemide 40 mg Tablet PO (06:19)
[2025-02-28] MEDS: insulin glargine 100 units/1 mL 35 UNIT SUBCUT (06:19)
[2025-02-28] MEDS: piperacillin-tazobactam 3.375 GM in sodium chloride 0.9% (plus) 50 ML IV ×2 (06:19→17:47)
[2025-02-28] MEDS: budesonide 0.5 mg/2 mL Neb 0.25 MG INHALATION ×2 (08:05→20:11)
[2025-02-28] MEDS: sevelamer 800 mg Tablet 2400 MG PO ×3 (08:26→17:52)
[2025-02-28] MEDS: apixaban 5 mg Tablet 2.5 MG PO ×2 (08:26→17:47)
[2025-02-28] MEDS: pantoprazole DR 40 mg Tablet PO ×2 (08:26→17:48)
[2025-02-28] MEDS: docusate sodium 100 mg Capsule 200 MG PO ×2 (08:27→17:52)
[2025-02-28] MEDS: ticagrelor 90 mg Tablet PO ×2 (08:27→17:48)
[2025-02-28] MEDS: gabapentin 300 mg Capsule PO ×2 (08:27→17:52)
[2025-02-28] MEDS: metoprolol succinate ER (24 HR) 25 mg Tablet 12.5 MG PO (08:27)
[2025-02-28] MEDS: isosorbide mononitrate ER 30 mg Tablet 15 MG PO ×2 (08:28→17:48)
[2025-02-28] MEDS: roflumilast 500 mcg Tablet PO (08:29)
[2025-02-28] MEDS: fluticasone nasal spray 16gm Btl 1 SPRAY INTRANASAL (09:16)
--- NOTE | 2025-02-28 09:23 | P.PN_ITS ---
Subjective 2 Subjective: feels better. dec edema. bp improving. dec nausea. no lackey or cp. still has orthopnea. Medications: Reviewed: Yes Medication Review Details: Current Medications Acetaminophen (Acetaminophen 325 Mg Tablet) 650 mg PO Q6H PRN PRN Reason: Mild/Mod Pain Or Temp >/= 101 Albuterol/Ipratropium (Ipratropium-Albuterol 3 Ml Neb) 3 ml INHALATION Q6H.RESP [facility] Last Admin: 02/28/25 08:05 Dose: 3 ml Albuterol/Ipratropium (Ipratropium-Albuterol 3 Ml Neb) 3 ml INHALATION Q4H PRN PRN Reason: SHORTNESS OF BREATH Allopurinol (Allopurinol 100 Mg Tablet) 100 mg PO DAILY PRN PRN Reason: Gout Apixaban (Apixaban 5 Mg Tablet) 2.5 mg PO BID [facility] Last Admin: 02/28/25 08:26 Dose: 2.5 mg Atorvastatin Calcium (Atorvastatin 40 Mg Tablet) 80 mg PO DAILY@1800 [facility] Last Admin: 02/27/25 17:37 Dose: 80 mg Budesonide (Budesonide 0.5 Mg/2 Ml Neb) 0.25 mg INHALATION BID.RESPIRATORY [facility] Last Admin: 02/28/25 08:05 Dose: 0.25 mg Cetirizine HCl (Cetirizine 10 Mg Tablet) 10 mg PO DAILY@18 [facility] Last Admin: 02/27/25 17:35 Dose: 10 mg Citalopram Hydrobromide (Citalopram 20 Mg Tablet) 10 mg PO QAM [facility] Last Admin: 02/28/25 06:19 Dose: 10 mg Cyclobenzaprine HCl (Cyclobenzaprine 10 Mg Tablet) 10 mg PO TID PRN PRN Reason: Muscle Spasm Docusate Sodium (Docusate Sodium 100 Mg Capsule) 200 mg PO BID@ [facility] Last Admin: 02/28/25 08:27 Dose: 200 mg Fluticasone Propionate (Fluticasone Nasal [place] 16gm Btl) 1 spray INTRANASAL DAILY [facility] Last Admin: 02/28/25 09:16 Dose: 1 spray Furosemide (Furosemide 40 Mg Tablet) 40 mg PO QAM [facility] Last Admin: 02/28/25 06:19 Dose: 40 mg Gabapentin (Gabapentin 300 Mg Capsule) 300 mg PO BID@ [facility] Last Admin: 02/28/25 08:27 Dose: 300 mg Glucagon (Glucagon 1 Mg/Ml Kit 1 Ml) 1 mg IM ONCE PRN; Protocol PRN Reason: Adult Acute Hypoglycemia Nursing Prot. Guaifenesin (Guaifenesin 100 Mg/5 Ml Udc 10 Ml) 200 mg PO Q4H PRN PRN Reason: COUGH Dextrose (D5w) 500 mls @ 0 mls/hr IV ONCE PRN; Protocol PRN Reason: Adult Acute Hypoglycemia Prot Dextrose (D10w) 125 mls @ 750 mls/hr IV PRN PRN; Protocol PRN Reason: Adult Acute Hypoglycemia Nursing Protocol Dextrose (D10w) 250 mls @ 1,000 mls/hr IV PRN PRN; Protocol PRN Reason: Adult Acute Hypoglycemia Nursing Protocol Piperacillin Sod/Tazobactam (Sod 3.375 gm/ Sodium Chloride) 50 mls @ 12.5 mls/hr IV Q12H [facility]; Protocol Last Admin: 02/28/25 06:19 Dose: 12.5 mls/hr Insulin Glargine (Insulin Glargine 100 Units/1 Ml) 35 unit SUBCUT QAM [facility] Last Admin: 02/28/25 06:19 Dose: 35 unit Insulin Human Lispro (Insulin Lispro 100 Unit/1 Ml) 0 unit SUBCUT WM&BEDTIME [facility]; Protocol Last Admin: 02/28/25 07:19 Dose: Not Given Isosorbide Mononitrate (Isosorbide Mononitrate Er 30 Mg Tablet) 15 mg PO BID [facility] Last Admin: 02/28/25 08:28 Dose: 15 mg Lidocaine/Prilocaine (Lidocaine-Prilocaine Cream 5 Gm) 1 applic TOPICAL QID [facility] Last Admin: 02/27/25 21:38 Dose: Not Given Metoprolol Succinate (Metoprolol Succinate Er (24 Hr) 25 Mg Tablet) 12.5 mg PO DAILY [facility] Last Admin: 02/28/25 08:27 Dose: 12.5 mg Midodrine (Midodrine 5 Mg Tablet) 5 mg PO ONCE [facility] Last Admin: 02/27/25 14:45 Dose: 5 mg Nitroglycerin (Nitroglycerin 0.4 Mg Sublingual Tablet) 0.4 mg SUBLINGUAL Q5M PRN PRN Reason: CHEST PAIN Ondansetron HCl (Ondansetron 2 Mg/Ml Sdv 2 Ml) 4 mg IVP Q8H PRN PRN Reason: vomiting, or N/V if npo Oxycodone/Acetaminophen (Oxycodone-Apap 5-325 Mg Tablet) 0.5 - 1 tab PO Q4H PRN PRN Reason: PAIN Pantoprazole Sodium (Pantoprazole Dr 40 Mg Tablet) 40 mg PO BID [facility] Last Admin: 02/28/25 08:26 Dose: 40 mg Polyethylene Glycol (Polyethylene Glycol 3350 Pkt 17 Gm) 4 gm PO DAILY PRN PRN Reason: Constipation Roflumilast (Roflumilast 500 Mcg Tablet) 500 mcg PO QAM [facility] Last Admin: 02/28/25 08:29 Dose: 500 mcg Sevelamer Carbonate (Sevelamer 800 Mg Tablet) 2,400 mg PO TID@ [facility] Last Admin: 02/28/25 08:26 Dose: 2,400 mg Ticagrelor (Ticagrelor 90 Mg Tablet) 90 mg PO BID [facility] Last Admin: 02/28/25 08:27 Dose: 90 mg Vitals/I&O/Wt Last Vital Signs Temp 97.5 F L 02/27/25 19:06 Pulse 50 L 02/28/25 08:05 Resp 18 02/28/25 08:05 BP 113/66 02/28/25 06:30 Pulse Ox 96 02/28/25 08:05 O2 Del Method Nasal Cannula 02/28/25 08:05 O2 Flow Rate 4 02/28/25 08:05 02/27/25 02/28/25 02/28/25 22:59 06:59 14:59 Intake Total 960 / 960 530 / 1490 Output Total 1800 / 1800 Balance -840 / -840 530 / -310 Weight last 48 hrs Weight 127 kg Weight 127.5 kg Weight 124.738 kg Physical Exam 2 Narrative: more awake, alert, interactve, sitting up in bed Vital signs noted requiring oxygen. HEENT normocephalic/atraumatic. Neck is supple. Lungs dull bases-improving. Heart irregular irregular positive systolic murmur positive S1-S2. Abdomen soft positive bowel sounds. Extremities- decreased b/l lower extremity edema. Redness both legs open lesions. Tenderness on the legs. Neuro - mental status improved, a,a, o x 2+, FROM x4 Poor distal pulses Data 02/28/25 03:40 02/28/25 03:40 Micro: Microbiology 02/27/25 06:58 Blood Culture - Preliminary Blood NEGATIVE TO DATE 02/27/25 06:54 Blood Culture - Preliminary Blood NEGATIVE TO DATE A&P Assessment and plan (1) ESRD (end stage renal disease): 79-year-old man 1. ESRD - s/p HD yesterday. will attempt extra ultrafiltration today. 2. Q cellulitis verus chronic leg wounds- dialysis and zurrently on zosyn 3. cortisol of 14.5 4. MS improving 5. a fib and chronic HFrEF- requires midodrine for dialysis. no pericardial effusion on November 2024 echo meds reviewed tsh 2.8 check pth discussed w/ pt and ICU staff The patient was seen and examined with the aid of a nurse using audiovisual equipment. The patient consented to hemodialysis and to telehealth. Plan See above. PDMP PDMP Reviewed: Not Reviewed Attestations 2 Medical Necessity Statement*: esrd, cellulitis, volume overloaded Time Spent in Patient Care: Greater than 35 minutes (>than 50% of time spent in counselling and/or direct pt care on unit) . Coding Level of Care Code Acute Code for Chg Fwd Diagnoses ESRD (end stage renal disease) N18.6
[2025-02-28] MEDS: midodrine 5 mg TABLET PO (10:59)
[2025-02-28] MEDS: lidocaine-prilocaine cream 5 gm 1 APPLIC TOPICAL ×2 (11:00→22:16)
[2025-02-28 12:00] LABS: Glucose Point of Care 121 mg/dL (70-110)
[2025-02-28] MEDS: oxyCODONE-APAP 5-325 mg Tablet PO (12:16)
[2025-02-28] MEDS: atorvastatin 40 mg Tablet 80 MG PO (17:48)
[2025-02-28] MEDS: cetirizine 10 mg Tablet PO (17:48)
[2025-02-28 18:26] LABS: Glucose Point of Care 86 mg/dL (70-110)
--- NOTE | 2025-02-28 19:06 | P.PN_ITS ---
Subjective 2 Subjective: He tolerated repeat session of dialysis well. Blood pressure is holding. Overall he is doing little better. Swelling with improvement. Purplish discoloration/stasis in lower extremities persists, although he has been keeping them down while sitting up. Vitals/I&O/Wt Last Vital Signs Temp 97.2 F L 02/28/25 15:39 Pulse 73 02/28/25 15:39 Resp 14 02/28/25 15:39 BP 145/85 02/28/25 15:39 Pulse Ox 86 L 02/28/25 17:09 O2 Del Method Nasal Cannula 02/28/25 13:20 O2 Flow Rate 4 02/28/25 17:09 02/28/25 02/28/25 02/28/25 06:59 14:59 22:59 Intake Total 530 / 1490 750 / 750 300 / 1050 Output Total 1800 / 1800 Balance 530 / -310 750 / 750 -1500 / -750 Weight last 48 hrs Weight 130.4 kg Weight 127 kg Weight 127.5 kg Weight 124.738 kg Physical Exam 2 Narrative: Accompanied by his . Const: COMMON NORMALS: patient oriented x3 and alert GENERAL APPEARANCE: c ooperative ORIENTATION/CONSCIOUSNESS: Yes awake HENMT: COMMON NORMALS: oropharynx normal Neck/C-Spine: COMMON NORMALS: no JVD Resp: COMMON NORMALS: normal respiratory effort and clear to auscultation bilaterally AUSCULTATION: clear to auscultation bilaterally Cardio: COMMON NORMALS: no JVD, regular rhythm, S1 normal heart sound present, S2 normal heart sound present and No murmurs present (Cardio) RHYTHM: regular rhythm HEART SOUNDS: S1 normal heart sound present and S2 normal heart sound present GI: COMMON NORMALS: Normal to inspection, nondistended, normoactive bowel sounds present, Soft to palpation and non-tender PALPATION: Yes Soft to palpation Extremity: COMMON NORMALS: no joint enlargement NARRATIVE EXTREMITY EXAM: Graft on the right medial forearm GENERAL: Yes edema (1+ BLLE) Neuro: COMMON NORMALS: patient oriented x3 and moves all extremities S ENSORIUM/ORIENTATION: Yes alert Skin: NARRATIVE SKIN EXAM: Improving erythema, worse on the left, bilateral lower extremities below the knees. Improving 3 small round red spots 1 about 1 cm, 1 7 mm and 1 3 mm in diameter, on upper medial left calf, without any break through skin, no ulceration, drainage. Purplish discoloration/stasis of legs below the knees, ankles and feet. OTHER: Shallow ulcerations 1 about 5 mm and 1 about 12 mm in length and 5 across on mid anterior right rhodes, with some granulation tissue in the base, currently not draining. Data 02/28/25 03:40 02/28/25 03:40 Micro: Microbiology 02/27/25 06:58 Blood Culture - Preliminary Blood NEGATIVE TO DATE 02/27/25 06:54 Blood Culture - Preliminary Blood NEGATIVE TO DATE A&P Assessment and plan (1) Cellulitis: Showing improvement in cellulitis, still stasis changes bilaterally, left leg which was more bothersome and erythematous, with subsiding symptoms. Continue antibiotics. Edema with improvement with dialysis. Not a good candidate for compression therapy. Will need to follow-up with wound care regarding ulcers on right lower leg. Discussed venous duplex with him and his , negative for DVT. Reviewed prior arterial duplex. Echocardiogram. Reviewed vitals, CBC, CMP. Will give antibiotic coverage with Zosyn, linezolid. Obtain MRSA PCR. Monitor for risk of C. difficile, cytopenia, SJS. (2) Bradycardia: Inappropriate bradycardia despite pacemaker lower setting at 60. Noted some heart rates down into the 30s last night. Today heart rates in the 70s. It appears that possibly some of the pacing is not capturing. This seems to be an intermittent issue. Discussed with his outpatient patient services specialist, obtain pacemaker interrogation. Monitor on telemetry. Discharge deferred. Transferred to [facility]. (3) Lower extremity edema: With improvement in lower extremity edema, tolerated repeat dialysis. Monitor for risk of hypotension after dialysis. Blood pressures holding. Edema with improvement. Poor circulation of lower extremities including venous stasis, suboptimal arterial circulation in addition to low overall ejection fraction, significant stasis in the lower extremities. Discussed with him and his elevation of lower extremities. Not a good candidate for compression therapy. Reviewed nephrology note. Discussed with nursing, case repairer. (4) ESRD (end stage renal disease): End-stage kidney disease (on dialysis) : Patient with ESRD on thrice-weekly dialysis, last session Tuesday, missed today due to concern for blood clot. No missed sessions prior. Blood pressure sometimes runs low during dialysis, requiring medication support. Mild hyperkalemia noted (potassium upper normal at 5). - Resume dialysis as soon as feasible, possibly with extra session if needed for volume removal. - Monitor potassium and manage with renal diet. - Continue to monitor blood pressure during dialysis; use midodrine as needed for hypotension. Discussed with java grails developer, initial admission recommended to intensive care unit due to risk of blood pressure decreased with need for more intensive dialysis. (5) Leg ulcer: Leg ulcers on the right mid rhodes, chronic previously which had healed up but opened up recently again with worsened edema. Suspect venous stasis. Elevating extremities. Hemodialysis as above for fluid overload. Will need wound care follow-up. Plan CHF: Chronic systolic, continue diuresis with Lasix, dialysis. He does still make some urine. Prior ejection fraction 40% on review of echo from November. On chronic 4 L nasal cannula oxygen. Does appear to have desaturation down to 70s from what he and his describe at home with exertion. Will need home O2 evaluation prior to discharge. Restrictive lung disease: Reports possible COPD, chronically on 4 L nasal cannula oxygen. Continue. Has been told to increase oxygen to 6 L on exertion, but appears even with that sometimes desaturates down to 70s. DM2: Continue daily Lantus. Monitor POC glucose. Sliding scale insulin. Consistent carbohydrate diet. Atrial fibrillation : History of atrial fibrillation, on Eliquis. EKG shows atrial fibrillation and right bundle branch block (pending official read). - Continue Eliquis unless contraindicated. - Monitor cardiac rhythm and rate. Mild hyperkalemia : Potassium upper normal at 5, likely related to missed dialysis session today. No acute symptoms reported. - Monitor potassium levels. - Resume dialysis to facilitate potassium removal. - renal diet. PDMP PDMP Reviewed: Not Reviewed Attestations 2 Medical Necessity Statement*: Place in observation for additional assessment management of fluid overload and gentleman with ESRD, underlying congestive heart failure with decreased ejection fraction, with lower extremity edema with superimposed cellulitis. and High MDM includes amount and/or complexity of data reviewed/ordered [ resulted lab(s)/test(s), ordered lab(s)/test(s) and other healthcare professional discussion] and described risk of complication, morbidity or mortality of management as documented Diagnoses Cellulitis L03.90 Bradycardia R00.1 Lower extremity edema R60.0 ESRD (end stage renal disease) N18.6 Leg ulcer L97.598
[2025-02-28] MEDS: linezolid premix 600 MG/300 ML PREMIX 300 MG IV (20:36)
[2025-02-28 23:34] LABS: MRSA PCR OZH (swab) NOT DETECTED (Negative)
[2025-03-01] VITALS (36 sets, daily range): BP systolic 91–127; BP diastolic 51–76; PULSE 58–106; RESP 14–27; TEMP 36.2–36.7; O2SAT 90–97
[2025-03-01 01:52] LABS: Glucose Point of Care 77 mg/dL (70-110)
[2025-03-01 01:52] LABS: Glucose Point of Care 63 mg/dL (70-110)
[2025-03-01] MEDS: ipratropium-albuterol 3 mL Neb INHALATION ×4 (02:32→21:13)
[2025-03-01 03:39] LABS: Basophils # 0.1 10^3/uL (0.0-0.1); Basophils % 0.8 %; Eosinophils # 0.3 10^3/uL (0.0-0.8); Eosinophils % 3.7 %; Hematocrit 32.6 % (37-53); Lymphocytes # 0.8 10^3/uL (0.8-4.8); Lymphocytes % 11.6 %; Mean Corpuscular HGB Conc 32.2 g/dL (30-55); Mean Corpuscular Volume 96.2 fl (82-101); Mean Platelet Volume 10.3 fL (7.4-10.4); Monocytes % 13.4 %; Neutrophils # 5.06 10^3/uL (1.8-7.7); Neutrophils % 69.9 %; Nucleated Red Blood Cells % 0 %; Platelet Count 194 10^3/cmm (157-399); Red Blood Count 3.39 10^6/uL (3.85-5.65); Red Cell Distribution Width 17.5 % (12.1-15.1); White Blood Count 7.24 10^3/uL (3.29-11.43)
[2025-03-01 04:03] LABS: Alanine Aminotransferase 9 U/L (0-41); Alkaline Phosphatase 100 U/L (40-130); Blood Urea Nitrogen 27 mg/dL (8-23); Calcium 8.6 mg/dL (8.5-10.5); Carbon Dioxide 27 mmol/L (22-29); Chloride 98 mmol/L (98-107); Globulin 4.2 g/dL (1.3-4.6); Glucose 75 mg/dL (65-115); Magnesium 1.9 mg/dL (1.7-2.3); Osmolality Calculated 288 mOsm/kg (285-295); Sodium 137 mmol/L (136-145); Total Bilirubin 0.7 mg/dL (0.15-1.2); Total Protein 7.2 g/dL (6.6-8.7)
[2025-03-01 04:05] LABS: Calcium 8.5 mg/dL (8.5-10.5)
[2025-03-01 04:06] LABS: Anion Gap 17.7 (5-19); Aspartate Amino Transferase 12 U/L (0-40); Potassium 5.7 mmol/L (3.5-5.1)
[2025-03-01 04:09] LABS: Parathyroid Hormone 296.8 pg/mL (15-65)
[2025-03-01 04:16] LABS: 25 Hydroxy Vitamin D 48 ng/mL (30-100)
[2025-03-01] MEDS: FUROsemide 40 mg Tablet PO ×3 (05:14→20:40)
[2025-03-01] MEDS: citalopram 20 mg Tablet 10 MG PO (05:15)
[2025-03-01] MEDS: roflumilast 500 mcg Tablet PO (05:15)
[2025-03-01] MEDS: piperacillin-tazobactam 3.375 GM in sodium chloride 0.9% (plus) 50 ML IV ×2 (06:03→20:49)
[2025-03-01] MEDS: linezolid premix 600 MG/300 ML PREMIX 300 MG IV (07:58)
[2025-03-01] MEDS: budesonide 0.5 mg/2 mL Neb 0.25 MG INHALATION ×2 (08:10→21:13)
--- NOTE | 2025-03-01 08:11 | P.PN_ITS ---
Subjective 2 Subjective: The patient feels better. He still requires 4 L nasal cannula oxygen. Decreased edema. Decreased shortness of breath. Denies fevers chills itching cramps or diarrhea. Patient states that dialysis and antibiotics are helping him. Medications: Reviewed: Yes Medication Review Details: Current Medications Acetaminophen (Acetaminophen 325 Mg Tablet) 650 mg PO Q6H PRN PRN Reason: Mild/Mod Pain Or Temp >/= 101 Albuterol/Ipratropium (Ipratropium-Albuterol 3 Ml Neb) 3 ml INHALATION Q6H.RESP [facility] Last Admin: 03/01/25 08:10 Dose: 3 ml Albuterol/Ipratropium (Ipratropium-Albuterol 3 Ml Neb) 3 ml INHALATION Q4H PRN PRN Reason: SHORTNESS OF BREATH Allopurinol (Allopurinol 100 Mg Tablet) 100 mg PO DAILY PRN PRN Reason: Gout Apixaban (Apixaban 5 Mg Tablet) 2.5 mg PO BID [facility] Last Admin: 02/28/25 17:47 Dose: 2.5 mg Atorvastatin Calcium (Atorvastatin 40 Mg Tablet) 80 mg PO DAILY@1800 [facility] Last Admin: 02/28/25 17:48 Dose: 80 mg Budesonide (Budesonide 0.5 Mg/2 Ml Neb) 0.25 mg INHALATION BID.[facility]AT[facility] Last Admin: 03/01/25 08:10 Dose: 0.25 mg Cetirizine HCl (Cetirizine 10 Mg Tablet) 10 mg PO DAILY@18 [facility] Last Admin: 02/28/25 17:48 Dose: 10 mg Citalopram Hydrobromide (Citalopram 20 Mg Tablet) 10 mg PO QAM [facility] Last Admin: 03/01/25 05:15 Dose: 10 mg Cyclobenzaprine HCl (Cyclobenzaprine 10 Mg Tablet) 10 mg PO TID PRN PRN Reason: Muscle Spasm Docusate Sodium (Docusate Sodium 100 Mg Capsule) 200 mg PO BID@ [facility] Last Admin: 02/28/25 17:52 Dose: 200 mg Fluticasone Propionate (Fluticasone Nasal [place] 16gm Btl) 1 spray INTRANASAL DAILY [facility] Last Admin: 02/28/25 09:16 Dose: 1 spray Furosemide (Furosemide 40 Mg Tablet) 40 mg PO QAM [facility] Last Admin: 03/01/25 05:14 Dose: 40 mg Gabapentin (Gabapentin 300 Mg Capsule) 300 mg PO BID@,18 [facility] Last Admin: 02/28/25 17:52 Dose: 300 mg Glucagon (Glucagon 1 Mg/Ml Kit 1 Ml) 1 mg IM ONCE PRN; Protocol PRN Reason: Adult Acute Hypoglycemia Nursing Prot. Guaifenesin (Guaifenesin 100 Mg/5 Ml Udc 10 Ml) 200 mg PO Q4H PRN PRN Reason: COUGH Dextrose (D5w) 500 mls @ 0 mls/hr IV ONCE PRN; Protocol PRN Reason: Adult Acute Hypoglycemia Prot Dextrose (D10w) 125 mls @ 750 mls/hr IV PRN PRN; Protocol PRN Reason: Adult Acute Hypoglycemia Nursing Protocol Dextrose (D10w) 250 mls @ 1,000 mls/hr IV PRN PRN; Protocol PRN Reason: Adult Acute Hypoglycemia Nursing Protocol Piperacillin Sod/Tazobactam (Sod 3.375 gm/ Sodium Chloride) 50 mls @ 12.5 mls/hr IV Q12H [facility]; Protocol Last Admin: 03/01/25 06:03 Dose: 12.5 mls/hr Linezolid (Zyvox Premix) 600 mg in 300 mls @ 300 mls/hr IV Q12H [facility]; Protocol Last Admin: 03/01/25 07:58 Dose: 300 mls/hr Insulin Glargine (Insulin Glargine 100 Units/1 Ml) 35 unit SUBCUT QAM [facility] Last Admin: 02/28/25 06:19 Dose: 35 unit Insulin Human Lispro (Insulin Lispro 100 Unit/1 Ml) 0 unit SUBCUT WM&BEDTIME [facility]; Protocol Last Admin: 02/28/25 20:54 Dose: Not Given Isosorbide Mononitrate (Isosorbide Mononitrate Er 30 Mg Tablet) 15 mg PO BID [facility] Last Admin: 02/28/25 17:48 Dose: 15 mg Lidocaine/Prilocaine (Lidocaine-Prilocaine Cream 5 Gm) 1 applic TOPICAL QID [facility] Last Admin: 02/28/25 22:16 Dose: 1 applic Metoprolol Succinate (Metoprolol Succinate Er (24 Hr) 25 Mg Tablet) 12.5 mg PO DAILY [facility] Last Admin: 02/28/25 08:27 Dose: 12.5 mg Nitroglycerin (Nitroglycerin 0.4 Mg Sublingual Tablet) 0.4 mg SUBLINGUAL Q5M PRN PRN Reason: CHEST PAIN Ondansetron HCl (Ondansetron 2 Mg/Ml Sdv 2 Ml) 4 mg IVP Q8H PRN PRN Reason: vomiting, or N/V if npo Oxycodone/Acetaminophen (Oxycodone-Apap 5-325 Mg Tablet) 0.5 - 1 tab PO Q4H PRN PRN Reason: PAIN Last Admin: 02/28/25 12:16 Dose: 1 tab Pantoprazole Sodium (Pantoprazole Dr 40 Mg Tablet) 40 mg PO BID [facility] Last Admin: 02/28/25 17:48 Dose: 40 mg Polyethylene Glycol (Polyethylene Glycol 3350 Pkt 17 Gm) 4 gm PO DAILY PRN PRN Reason: Constipation Roflumilast (Roflumilast 500 Mcg Tablet) 500 mcg PO QAM [facility] Last Admin: 03/01/25 05:15 Dose: 500 mcg Sevelamer Carbonate (Sevelamer 800 Mg Tablet) 2,400 mg PO TID@, [facility] Last Admin: 02/28/25 17:52 Dose: 2,400 mg Ticagrelor (Ticagrelor 90 Mg Tablet) 90 mg PO BID [facility] Last Admin: 02/28/25 17:48 Dose: 90 mg Vitals/I&O/Wt Last Vital Signs Temp 98 F 03/01/25 05:00 Pulse 61 03/01/25 06:00 Resp 14 03/01/25 06:00 BP 114/57 03/01/25 06:00 Pulse Ox 96 03/01/25 06:00 O2 Del Method Nasal Cannula 03/01/25 05:00 O2 Flow Rate 4 03/01/25 05:00 02/28/25 03/01/25 03/01/25 22:59 06:59 14:59 Intake Total 1180 / 1930 100 / 2030 Output Total 1800 / 1800 Balance -620 / 130 100 / 230 Weight last 48 hrs Weight 128.231 kg Weight 130.4 kg Weight 127 kg Weight 127.5 kg Physical Exam 2 Narrative: awake, alert, interactive, sitting up in bed Vital signs noted requiring oxygen. HEENT normocephalic/atraumatic. Neck is supple. Lungs -improved air movement bilaterally Heart: Regular paced rhythm, positive systolic murmur positive S1-S2. Abdomen soft positive bowel sounds. Extremities- decreased b/l lower extremity edema. Improving purple/red color on legs. Neuro - mental status improved, a,a, o x 3, FROM x4 Poor distal pulses Data 03/01/25 03:06 03/01/25 03:06 Micro: Microbiology 02/27/25 06:58 Blood Culture - Preliminary Blood NEGATIVE TO DATE 02/27/25 06:54 Blood Culture - Preliminary Blood NEGATIVE TO DATE A&P Assessment and plan (1) ESRD (end stage renal disease): 79-year-old man 1. ESRD -doing well with dialysis. Will continue gentle dialysis today or tomorrow, I do not think that the patient will do well with a 72-hour weekend and would likely need hemodialysis 4 times a week. 2. cellulitis verus chronic leg wounds- dialysis and currently on zosyn and linezolid 3. cortisol of 14.5 4. Bradycardia with history of atrial fibrillation as per cardiology 5. chronic HFrEF- requires midodrine for dialysis. no pericardial effusion on November 2024 echo meds reviewed Increase Lasix dose. tsh 2.8 - pth 297- okay for ESRD. can give zemplar w/ HD discussed w/ pt and ICU staff The patient was seen and examined with the aid of a nurse using audiovisual equipment. The patient consented to hemodialysis and to telehealth. Plan See above. PDMP PDMP Reviewed: Not Reviewed Attestations 2 Medical Necessity Statement*: CHF, ESRD Time Spent in Patient Care: Greater than 35 minutes (>than 50% of time spent in counselling and/or direct pt care on unit) . Coding Level of Care Code Acute Code for Chg Fwd Diagnoses ESRD (end stage renal disease) N18.6
[2025-03-01] MEDS: sevelamer 800 mg Tablet 2400 MG PO ×2 (09:02→20:43)
[2025-03-01] MEDS: gabapentin 300 mg Capsule PO ×2 (09:02→20:40)
[2025-03-01] MEDS: isosorbide mononitrate ER 30 mg Tablet 15 MG PO ×2 (09:03→20:40)
[2025-03-01] MEDS: apixaban 5 mg Tablet 2.5 MG PO ×2 (09:03→20:41)
[2025-03-01] MEDS: pantoprazole DR 40 mg Tablet PO ×2 (09:03→20:39)
[2025-03-01] MEDS: ticagrelor 90 mg Tablet PO ×2 (09:03→20:41)
[2025-03-01] MEDS: docusate sodium 100 mg Capsule 200 MG PO ×2 (09:06→20:43)
[2025-03-01] MEDS: ondansetron 2 mg/ML SDV 2 mL 4 MG IVP (09:08)
[2025-03-01 11:53] LABS: Glucose Point of Care 80 mg/dL (70-110)
[2025-03-01 12:07] LABS: Glucose Point of Care 154 mg/dL (70-110)
[2025-03-01] MEDS: insulin lispro 100 unit/1 mL SUBCUT (12:27)
[2025-03-01] MEDS: oxyCODONE-APAP 5-325 mg Tablet PO (14:23)
--- NOTE | 2025-03-01 14:57 | PM.CONSULT ---
Documented by User: Dasia Blake NP 03/01/25 15:12 Providers/Reason For Consult Consulting Physician/Specialty*: Dr. Calles Reason for Consult*: bradycardia Requesting Physician: Dr. Crespo Attending Physician: Karlos Crespo Primary Care Provider: Lynnette Emerson APRN History of Present Illness History of Present Illness Shon Mullen is a 79 year old male with a history of end-stage renal disease on dialysis Tuesday and Tuesday, CHF most recent ejection fraction 40%, coronary artery disease, A-fib chronically anticoagulated, restrictive lung disease, obstructive sleep apnea, pacemaker, anemia, hyperlipidemia, hypertension, diabetes, and former tobacco use came into the emergency department a couple of days ago due to worsening bilateral lower extremity edema and redness over the past couple weeks. Previously patient had some issues with hypotensive episodes during dialysis and required midodrine. Patient had dialysis and tolerated well on an inpatient basis. Lower extremities have improved. Signs of stasis present but no active signs of cellulitis on my assessment. Patient developed inappropriate bradycardia despite pacemaker setting at 60 noted on telemetry as well as strips. Heart rates were noted as low as the 30s on monitor last night. There was questioning of possible lack of capture from the pacemaker. Pacemaker was interrogated and showed average rate 60 or above with no episodes of bradycardia. Impedance was normal. Patient has reported at home that he had an episode of low oxygen and severe shaking and heart rate was in the 30s off of his pulse oximeter at that time. Review of Systems Narrative: Consitutional: denies fever, chills, body aches Card: Denies chest pain, palpitations, reports episodes of bradycardia Resp: reports chronic shortness of breath on exertion, denies hemoptysis, denies cough GI: denies abdominal pain, denies nausea or vomiting Musc: Denies extremity pain, denies limited range of motion or recent injury Skin: Reports recent right lower extremity drainage from weeping edema Neuro: Denies nubmness in extremities, h/a, s/s of stroke Nas: Denies easy bruiding/bleeding Medications/Allergies Home Medications ?Medication ?Instructions ?Recorded ?Confirmed ?Last Taken ?Type atorvastatin 80 mg tablet 80 mg PO DAILY@1800 10/02/19 02/27/25 02/26/25 18:00 History gabapentin 300 mg capsule 300 mg PO BID@11/07/19 02/27/25 02/26/25 18:00 History sevelamer carbonate 800 mg tablet 2,400 mg PO TID@,11/07/19 02/27/25 02/26/25 History (Renvela) docusate sodium 100 mg capsule 200 mg PO BID@,09/17/20 02/27/25 02/26/25 18:00 History allopurinol 100 mg tablet 100 mg PO DAILY PRN Gout 11/11/20 02/27/25 02/26/25 History albuterol sulfate 90 mcg/actuation 2 puff inhalation Q6H PRN 01/02/21 02/27/25 02/23/21 Rx aerosol inhaler shortness of breath or wheezing 30 days #8.5 grams insulin glargine 100 unit/mL 35 unit SUBCUT QAM 07/13/21 02/27/25 02/26/25 07:00 History subcutaneous solution (Lantus U-100 Insulin) cholecalciferol (vitamin D3) 50 50 mcg PO QAM 11/11/21 02/27/25 02/26/25 History mcg (2,000 unit) capsule cetirizine 10 mg tablet (Zyrtec) 10 mg PO DAILY@04/26/22 02/27/25 02/26/25 18:00 History omega-3 fatty acids 1,000 mg 1,000 mg PO BID@04/26/22 02/27/25 02/26/25 History capsule roflumilast 250 mcg tablet 500 mcg PO QAM 06/18/22 02/27/25 02/26/25 07:00 History (Daliresp) vitamin B complex with vit C-folic 1 tab PO QAM 03/07/23 02/27/25 02/26/25 08:00 History acid 800 mcg-zinc 12.5 mg tablet (RenaPlex) furosemide 40 mg tablet 40 mg PO QAM 06/20/23 02/27/25 02/26/25 07:00 History cyclobenzaprine 10 mg tablet 10 mg PO TID PRN Muscle Spasm 07/01/23 02/27/25 Unknown History polyethylene glycol 3350 17 4 g PO DAILY PRN Constipation 07/01/23 02/27/25 06/30/23 History gram/dose oral powder nitroglycerin 0.4 mg sublingual 0.4 mg sublingual Q5M PRN Chest 10/04/23 02/27/25 Unknown Rx tablet (Nitrostat) Pain #25 tabs ticagrelor 90 mg tablet (Brilinta) 90 mg PO BID #180 tabs 11/15/23 02/27/25 02/26/25 Rx triamcinolone acetonide 0.1 % 1 applic topical BID #453.6 grams 12/13/23 02/27/25 Unknown Rx topical cream Afflo Vest #1 ea 01/12/24 02/27/25 Unknown Rx Afflo Vest #1 ea 01/12/24 02/27/25 Unknown Rx guaifenesin 100 mg/5 mL oral liquid 200 mg (10 mL) PO Q4H PRN cough 03/01/24 02/27/25 Unknown Rx #473 mL Diabetic Shoes with 3 Custom #1 ea 03/27/24 02/27/25 Unknown Rx Inserts diclofenac sodium 1 % topical gel 2 g topical QID 30 days #100 grams 06/26/24 02/27/25 Unknown Rx (Voltaren Arthritis Pain) apixaban 2.5 mg tablet 2.5 mg PO BID #180 tabs 10/25/24 02/27/25 02/26/25 Rx isosorbide mononitrate 30 mg 15 mg (1/2 x 30 mg) PO BID #90 tabs 10/25/24 02/27/25 02/26/25 Rx tablet,extended release 24 hr pantoprazole 40 mg tablet,delayed 40 mg PO BID 10/25/24 02/27/25 02/26/25 History release citalopram 20 mg tablet 10 mg PO QAM 01/31/25 02/27/25 02/26/25 History metoprolol succinate 25 mg 12.5 mg (1/2 x 25 mg) PO DAILY #90 01/31/25 02/27/25 Unknown Rx tablet,extended release 24 hr tabs midodrine 2.5 mg tablet 2.5 mg PO BID PRN low blood 02/26/25 02/27/25 Unknown Rx pressure #60 tabs spironolactone 25 mg tablet 25 mg PO DAILY@09 #90 tabs 02/26/25 02/27/25 Unknown Rx azelastine 137 mcg (0.1 %) nasal 1 spray intranasal BID 02/27/25 02/27/25 02/26/25 History spray fluticasone 100 mcg-salmeterol 50 1 inh inhalation BID 02/27/25 02/27/25 02/26/25 History mcg/dose blistr powdr for inhalation (Wixela Inhub) fluticasone propionate 50 1 spray intranasal DAILY 02/27/25 02/27/25 02/26/25 History mcg/actuation nasal spray,suspension (Flonase Allergy Relief) ketoconazole 2 % topical cream 1 applic topical BID 02/27/25 02/27/25 Unknown History lidocaine-prilocaine 2.5 %-2.5 % 1 applic topical QID 02/27/25 02/27/25 Unknown History topical cream nut.tx.imp.renal fxn,lac-reduc 1 ea PO DAILY 02/27/25 02/27/25 Unknown History 0.08 gram-1.8 kcal/mL oral liquid (Nepro Carb Steady) oxycodone-acetaminophen 5 mg-325 See Rx Instructions .Route 02/27/25 02/27/25 Unknown History mg tablet .COMPLEX PRN Pain testosterone cypionate 200 mg/mL 200 mg IM Q14D 02/27/25 02/27/25 02/12/25 History intramuscular syringe tiotropium bromide 2.5 2 puff inhalation DAILY 02/27/25 02/27/25 02/26/25 History mcg/actuation mist for inhalation (Spiriva Respimat) Allergies Allergy/AdvReac Type Severity Reaction Status Date / Time ciprofloxacin (From Cipro) Allergy rash Verified 02/26/25 09:02 felodipine Allergy rash Verified 02/26/25 09:02 sulfamethoxazole (From Allergy rash Verified 02/26/25 09:02 Septra) trimethoprim (From Septra) Allergy rash Verified 02/26/25 09:02 Current Medications Generic Name Dose Route Start Last Admin Trade Name Freq PRN Reason Stop Dose Admin Albuterol/Ipratropium 3 ml 02/27/25 14:44 03/01/25 14:02 Ipratropium-Albuterol 3 Ml Neb INHALATION 3 ml Q6H.RESP GEORGE Administration Apixaban 2.5 mg 02/27/25 18:00 03/01/25 09:03 Apixaban 5 Mg Tablet PO 2.5 mg BID GEORGE Administration Atorvastatin Calcium 80 mg 02/27/25 18:00 02/28/25 17:48 Atorvastatin 40 Mg Tablet PO 80 mg DAILY@1800 GEORGE Administration Budesonide 0.25 mg 02/27/25 20:00 03/01/25 08:10 Budesonide 0.5 Mg/2 Ml Neb INHALATION 0.25 mg BID.RESPIRATORY GEORGE Administration Cetirizine HCl 10 mg 02/27/25 18:00 02/28/25 17:48 Cetirizine 10 Mg Tablet PO 10 mg DAILY@18 GEORGE Administration Citalopram Hydrobromide 10 mg 02/28/25 06:00 03/01/25 05:15 Citalopram 20 Mg Tablet PO 10 mg QAM GEORGE Administration Docusate Sodium 200 mg 02/27/25 18:00 03/01/25 09:06 Docusate Sodium 100 Mg Capsule PO 200 mg BID@18 GEORGE Administration Fluticasone Propionate 1 spray 02/28/25 09:00 03/01/25 09:17 Fluticasone Nasal [place] 16gm Btl INTRANASAL Not Given DAILY [facility] Furosemide 40 mg 03/01/25 09:00 03/01/25 09:03 Furosemide 40 Mg Tablet PO 40 mg BID GEORGE Administration Gabapentin 300 mg 02/27/25 18:00 03/01/25 09:02 Gabapentin 300 Mg Capsule PO 300 mg BID@ GEORGE Administration Piperacillin Sod/Tazobactam 50 mls @ 12.5 mls/hr 02/27/25 15:00 03/01/25 10:15 Sod 3.375 gm/ Sodium Chloride IV Infused Q12H [facility] Infusion Protocol Linezolid 600 mg in 300 mls @ 300 mls/hr 02/28/25 19:30 03/01/25 09:16 Zyvox Premix IV Infused Q12H [facility] Infusion Protocol Insulin Glargine 35 unit 02/28/25 06:00 03/01/25 07:00 Insulin Glargine 100 Units/1 Ml SUBCUT Not Given QAM [facility] Insulin Human Lispro 0 unit 02/27/25 14:44 03/01/25 12:27 Insulin Lispro 100 Unit/1 Ml SUBCUT 2 unit WM&BEDTIME GEORGE Administration Protocol Isosorbide Mononitrate 15 mg 02/27/25 18:00 03/01/25 09:03 Isosorbide Mononitrate Er 30 Mg Tablet PO 15 mg BID GEORGE Administration Lidocaine/Prilocaine 1 applic 02/27/25 14:44 03/01/25 14:06 Lidocaine-Prilocaine Cream 5 Gm TOPICAL Not Given QID GEORGE Metoprolol Succinate 12.5 mg 02/28/25 09:00 03/01/25 09:17 Metoprolol Succinate Er (24 Hr) 25 Mg Tablet PO Not Given DAILY GEORGE Ondansetron HCl 4 mg 02/27/25 14:44 03/01/25 09:08 Ondansetron 2 Mg/Ml Sdv 2 Ml IVP 4 mg Q8H PRN Administration vomiting, or N/V if npo Oxycodone/Acetaminophen 0.5 - 1 tab 02/27/25 14:44 03/01/25 14:23 Oxycodone-Apap 5-325 Mg Tablet PO 1 tab Q4H PRN Administration PAIN Pantoprazole Sodium 40 mg 02/27/25 18:00 03/01/25 09:[address] 40 Mg Tablet PO 40 mg BID GEORGE Administration Roflumilast 500 mcg 02/28/25 06:00 03/01/25 05:15 Roflumilast 500 Mcg Tablet PO 500 mcg QAM GEORGE Administration Sevelamer Carbonate 2,400 mg 02/27/25 14:44 03/01/25 14:06 Sevelamer 800 Mg Tablet PO Not Given TID@,,18 GEORGE Ticagrelor 90 mg 02/27/25 18:00 03/01/25 09:03 Ticagrelor 90 Mg Tablet PO 90 mg BID GEORGE Administration PFSH Acute PFSH: Medical History Atrial fibrillation NSTEMI (non-ST elevated myocardial infarction) End-stage renal disease (ESRD) LV dysfunction Anemia Respiratory failure with hypoxia CHF (congestive heart failure) Chronic anticoagulation ESRD (end stage renal disease) Myocardial infarct Renal failure Heart failure Small airways disease Restrictive lung disease Diabetes mellitus Hypercholesteremia Neuropathy Pneumonia MARAL (obstructive sleep apnea) CAD (coronary artery disease) Pacemaker Accelerated essential hypertension Surgical History Peritoneal dialysis status (03/02/21) removed History of colonoscopy with polypectomy 2020 Hemodialysis access, AV graft S/P cataract surgery S/P PTCA (percutaneous transluminal coronary angioplasty) S/P cardiac pacemaker procedure S/P dialysis catheter insertion Family History Mother Heart disease Social History Smoking and tobacco/nicotine status: former use of tobacco/nicotine Quit status (tobacco/nicotine): has quit using Year quit tobacco: 1984 Former quit date comment: 3PPD x 17 Years Second hand smoke exposure: No Alcohol intake: never Substance/Drug Use: never Lives independently: Yes Household members: spouse Housing: House Marital status: service: Yes Current occupational status: retired Pets and animals: No Do you think of yourself as: Straight/Heterosexual Current gender identity: Male Vitals/I&O/Wt Last Vital Signs Temp 98 F 03/01/25 05:00 Pulse 65 03/01/25 14:08 Resp 18 03/01/25 14:23 BP 114/57 03/01/25 06:00 Pulse Ox 94 03/01/25 14:02 O2 Del Method Nasal Cannula 03/01/25 08:13 O2 Flow Rate 4 03/01/25 14:02 02/28/25 03/01/25 03/01/25 22:59 06:59 14:59 Intake Total 1180 / 1930 100 / 2030 350 / 350 Output Total 1800 / 1800 Balance -620 / 130 100 / 230 350 / 350 Weight last 48 hrs Weight 282 lb 11.2 oz Weight 287 lb 7.724 oz Weight 279 lb 15.793 oz Weight 281 lb 1.43 oz Physical Exam Narrative: General: No apparent distress, healthy appearing HENMT: normoceophalic Muskuloskeletal: Full ROM Respiratory: Normal respiratory effort, clear to auscultation bilaterally throughout all lung leyva, no use of accessory muscles Cardio: No JVD, irregularly irregular rate and rhythm, S1 S2 normal, no murmurs, peripheral pulses 2+ radial palpated bilaterally Extremities: Full ROM, normal, normal capillary refill, no cyanosis, 1+ nonpiting edema bilateral lower extremities Neuro: Alert and oriented x4, no focal motor deficits Psych: Affect normal, denies suicidal ideation, mental status grossly normal Skin: Hemosiderin staining bilateral lower extremities, right anterior rhodes has an ulcer type area that is not actively draining no redness to the area Data 03/02/25 04:47 03/02/25 04:47 A&P Assessment and plan (1) Accelerated essential hypertension: (2) Pacemaker: (3) History of heart attack: (4) Heart failure: (5) Chronic anticoagulation: Plan Patient appears well compensated from a heart failure standpoint. He is tolerating dialysis well. I spoke to [employer] rep, and he states he cannot see any malfunction of the pacemaker on the interrogations. No bradycardia noted. He states the patient did have an increase to max output from yesterday to today but is sensins and capturing appropriately. Rhythm strips are concerning. At this time, recommend continue to monitor and recheck pacemaker after dialysis and see how patient does from there. Thank you, Dr. Crespo, for allowing us to care for this very pleasant 79 year old gentleman. PDMP PDMP Reviewed: Not Reviewed Consult Attestations Medical Necessity Statement: Deferred to primary. Coding Level of Care Code 39381 Diagnoses Accelerated essential hypertension I10 Pacemaker Z95.0 History of heart attack I25.2 Acute on chronic systolic heart failure I50.23 Heart failure chronicity: acute on chronic Heart failure type: systolic Chronic anticoagulation Z79.01 Time Spent (min) 25 Documented by User: Shubham Sosa MD 03/02/25 16:39 Medications/Allergies Home Medications ?Medication ?Instructions ?Recorded ?Confirmed ?Last Taken ?Type atorvastatin 80 mg tablet 80 mg PO DAILY@1800 10/02/19 02/27/25 02/26/25 18:00 History gabapentin 300 mg capsule 300 mg PO BID@11/07/19 02/27/25 02/26/25 18:00 History sevelamer carbonate 800 mg tablet 2,400 mg PO TID@11/07/19 02/27/25 02/26/25 History (Renvela) docusate sodium 100 mg capsule 200 mg PO BID@09/17/20 02/27/25 02/26/25 18:00 History allopurinol 100 mg tablet 100 mg PO DAILY PRN Gout 11/11/20 02/27/25 02/26/25 History albuterol sulfate 90 mcg/actuation 2 puff inhalation Q6H PRN 01/02/21 02/27/25 02/23/21 Rx aerosol inhaler shortness of breath or wheezing 30 days #8.5 grams insulin glargine 100 unit/mL 35 unit SUBCUT QAM 07/13/21 02/27/25 02/26/25 07:00 History subcutaneous solution (Lantus U-100 Insulin) cholecalciferol (vitamin D3) 50 50 mcg PO QAM 11/11/21 02/27/25 02/26/25 History mcg (2,000 unit) capsule cetirizine 10 mg tablet (Zyrtec) 10 mg PO DAILY@04/26/22 02/27/25 02/26/25 18:00 History omega-3 fatty acids 1,000 mg 1,000 mg PO BID@04/26/22 02/27/25 02/26/25 History capsule roflumilast 250 mcg tablet 500 mcg PO QAM 06/18/22 02/27/25 02/26/25 07:00 History (Daliresp) vitamin B complex with vit C-folic 1 tab PO QAM 03/07/23 02/27/25 02/26/25 08:00 History acid 800 mcg-zinc 12.5 mg tablet (RenaPlex) furosemide 40 mg tablet 40 mg PO QAM 06/20/23 02/27/25 02/26/25 07:00 History cyclobenzaprine 10 mg tablet 10 mg PO TID PRN Muscle Spasm 07/01/23 02/27/25 Unknown History polyethylene glycol 3350 17 4 g PO DAILY PRN Constipation 07/01/23 02/27/25 06/30/23 History gram/dose oral powder nitroglycerin 0.4 mg sublingual 0.4 mg sublingual Q5M PRN Chest 10/04/23 02/27/25 Unknown Rx tablet (Nitrostat) Pain #25 tabs ticagrelor 90 mg tablet (Brilinta) 90 mg PO BID #180 tabs 11/15/23 02/27/25 02/26/25 Rx triamcinolone acetonide 0.1 % 1 applic topical BID #453.6 grams 12/13/23 02/27/25 Unknown Rx topical cream Afflo Vest #1 ea 01/12/24 02/27/25 Unknown Rx Afflo Vest #1 ea 01/12/24 02/27/25 Unknown Rx guaifenesin 100 mg/5 mL oral liquid 200 mg (10 mL) PO Q4H PRN cough 03/01/24 02/27/25 Unknown Rx #473 mL Diabetic Shoes with 3 Custom #1 ea 03/27/24 02/27/25 Unknown Rx Inserts diclofenac sodium 1 % topical gel 2 g topical QID 30 days #100 grams 06/26/24 02/27/25 Unknown Rx (Voltaren Arthritis Pain) apixaban 2.5 mg tablet 2.5 mg PO BID #180 tabs 10/25/24 02/27/25 02/26/25 Rx isosorbide mononitrate 30 mg 15 mg (1/2 x 30 mg) PO BID #90 tabs 10/25/24 02/27/25 02/26/25 Rx tablet,extended release 24 hr pantoprazole 40 mg tablet,delayed 40 mg PO BID 10/25/24 02/27/25 02/26/25 History release citalopram 20 mg tablet 10 mg PO QAM 01/31/25 02/27/25 02/26/25 History metoprolol succinate 25 mg 12.5 mg (1/2 x 25 mg) PO DAILY #90 01/31/25 02/27/25 Unknown Rx tablet,extended release 24 hr tabs midodrine 2.5 mg tablet 2.5 mg PO BID PRN low blood 02/26/25 02/27/25 Unknown Rx pressure #60 tabs spironolactone 25 mg tablet 25 mg PO DAILY@09 #90 tabs 02/26/25 02/27/25 Unknown Rx azelastine 137 mcg (0.1 %) nasal 1 spray intranasal BID 02/27/25 02/27/25 02/26/25 History spray fluticasone 100 mcg-salmeterol 50 1 inh inhalation BID 02/27/25 02/27/25 02/26/25 History mcg/dose blistr powdr for inhalation (Wixela Inhub) fluticasone propionate 50 1 spray intranasal DAILY 02/27/25 02/27/25 02/26/25 History mcg/actuation nasal spray,suspension (Flonase Allergy Relief) ketoconazole 2 % topical cream 1 applic topical BID 02/27/25 02/27/25 Unknown History lidocaine-prilocaine 2.5 %-2.5 % 1 applic topical QID 02/27/25 02/27/25 Unknown History topical cream nut.tx.imp.renal fxn,lac-reduc 1 ea PO DAILY 02/27/25 02/27/25 Unknown History 0.08 gram-1.8 kcal/mL oral liquid (Nepro Carb Steady) oxycodone-acetaminophen 5 mg-325 See Rx Instructions .Route 02/27/25 02/27/25 Unknown History mg tablet .COMPLEX PRN Pain testosterone cypionate 200 mg/mL 200 mg IM Q14D 02/27/25 02/27/25 02/12/25 History intramuscular syringe tiotropium bromide 2.5 2 puff inhalation DAILY 02/27/25 02/27/25 02/26/25 History mcg/actuation mist for inhalation (Spiriva Respimat) Allergies Allergy/AdvReac Type Severity Reaction Status Date / Time ciprofloxacin (From Cipro) Allergy rash Verified 02/26/25 09:02 felodipine Allergy rash Verified 02/26/25 09:02 sulfamethoxazole (From Allergy rash Verified 02/26/25 09:02 Septra) trimethoprim (From Septra) Allergy rash Verified 02/26/25 09:02 PFSH Acute PFSH: Medical History Atrial fibrillation NSTEMI (non-ST elevated myocardial infarction) End-stage renal disease (ESRD) LV dysfunction Anemia Respiratory failure with hypoxia CHF (congestive heart failure) Chronic anticoagulation ESRD (end stage renal disease) Myocardial infarct Renal failure Heart failure Small airways disease Restrictive lung disease Diabetes mellitus Hypercholesteremia Neuropathy Pneumonia MARAL (obstructive sleep apnea) CAD (coronary artery disease) Pacemaker Accelerated essential hypertension Surgical History Peritoneal dialysis status (03/02/21) removed History of colonoscopy with polypectomy 2020 Hemodialysis access, AV graft S/P cataract surgery S/P PTCA (percutaneous transluminal coronary angioplasty) S/P cardiac pacemaker procedure S/P dialysis catheter insertion Family History Mother Heart disease Social History Smoking and tobacco/nicotine status: former use of tobacco/nicotine Quit status (tobacco/nicotine): has quit using Year quit tobacco: 1984 Former quit date comment: 3PPD x 17 Years Second hand smoke exposure: No Alcohol intake: never Substance/Drug Use: never Lives independently: Yes Household members: spouse Housing: House Marital status: service: Yes Current occupational status: retired Pets and animals: No Do you think of yourself as: Straight/Heterosexual Current gender identity: Male Data 03/02/25 04:47 03/02/25 04:47 A&P Assessment and plan (1) Accelerated essential hypertension: (2) Pacemaker: (3) History of heart attack: (4) Heart failure: (5) Chronic anticoagulation: Plan Patient appears well compensated from a heart failure standpoint. He is tolerating dialysis well. I spoke to [employer] rep, and he states he cannot see any malfunction of the pacemaker on the interrogations. No bradycardia noted. He states the patient did have an increase to max output from yesterday to today but is sensins and capturing appropriately. Rhythm strips are concerning. At this time, recommend continue to monitor and recheck pacemaker after dialysis and see how patient does from there. Thank you, Dr. Crespo, for allowing us to care for this very pleasant 79 year old gentleman. I saw Mr. Mullen, examined, reviewed admission, progress since, lad data and tele monitor strips with ? bradycardia. Pt clincially stable from CVS status, with compensated CHF. He is due for dialysis tomorrow. Some of the tele moniotr recording are concerning where HR dropped into mid 30s and with delayed pacing. Plan to observe overnight and followup after dialysis. PDMP PDMP Reviewed: Not Reviewed Coding Level of Care Code 20011 Diagnoses Accelerated essential hypertension I10 Pacemaker Z95.0 History of heart attack I25.2 Acute on chronic systolic heart failure I50.23 Heart failure chronicity: acute on chronic Heart failure type: systolic Chronic anticoagulation Z79.01 Time Spent (min) 25
--- NOTE | 2025-03-01 16:06 | P.PN_ITS ---
Subjective 2 Subjective: Denies any further changes today. He is going to have dialysis. Vitals/I&O/Wt Last Vital Signs Temp 97.9 F 03/01/25 15:10 Pulse 70 03/01/25 15:00 Resp 19 H 03/01/25 15:00 BP 100/62 03/01/25 15:00 Pulse Ox 94 03/01/25 14:02 O2 Del Method Nasal Cannula 03/01/25 08:13 O2 Flow Rate 4 03/01/25 14:02 03/01/25 03/01/25 03/01/25 06:59 14:59 22:59 Intake Total 100 / 2030 1310 / 1310 Balance 100 / 230 1310 / 1310 Weight last 48 hrs Weight 128.231 kg Weight 130.4 kg Weight 127 kg Weight 127.5 kg Physical Exam 2 Narrative: Accompanied by his . Const: COMMON NORMALS: patient oriented x3 and alert GENERAL APPEARANCE: c ooperative ORIENTATION/CONSCIOUSNESS: Yes awake HENMT: COMMON NORMALS: oropharynx normal Neck/C-Spine: COMMON NORMALS: no JVD Resp: COMMON NORMALS: normal respiratory effort and clear to auscultation bilaterally AUSCULTATION: clear to auscultation bilaterally Cardio: COMMON NORMALS: no JVD, regular rhythm, S1 normal heart sound present, S2 normal heart sound present and No murmurs present (Cardio) RHYTHM: regular rhythm HEART SOUNDS: S1 normal heart sound present and S2 normal heart sound present GI: COMMON NORMALS: Normal to inspection, nondistended, normoactive bowel sounds present, Soft to palpation and non-tender PALPATION: Yes Soft to palpation Extremity: COMMON NORMALS: no joint enlargement NARRATIVE EXTREMITY EXAM: Graft on the right medial forearm GENERAL: Yes edema (1+ BLLE) Neuro: COMMON NORMALS: patient oriented x3 and moves all extremities S ENSORIUM/ORIENTATION: Yes alert Skin: NARRATIVE SKIN EXAM: Improving erythema, worse on the left, bilateral lower extremities below the knees. Improving 3 small round red spots 1 about 1 cm, 1 7 mm and 1 3 mm in diameter, on upper medial left calf, without any break through skin, no ulceration, drainage. Purplish discoloration/stasis of legs below the knees, ankles and feet. OTHER: Shallow ulcerations 1 about 5 mm and 1 about 12 mm in length and 5 across on mid anterior right rhodes, with some granulation tissue in the base, currently not draining. Data 03/01/25 03:06 03/01/25 03:06 A&P Assessment and plan (1) Bradycardia: Inappropriate bradycardia despite pacemaker lower setting at 60. Noted some heart rates down into the 30s last night again, with pacer spikes without corresponding EKG complexes. Pacemaker interrogation performed today, without obvious abnormality based on the report. Discussed with cardiology team, appreciate consultation. Reviewed cardiology note, continue with additional monitoring for now and considering additional reassessment. Continue telemetry monitoring. Follow-up further cardiology recommendations. It appears that possibly some of the pacing is not capturing and/were not sensing properly? This seems to be an intermittent issue. Discharge deferred. Transferred to [facility], as overflow in ICU currently. (2) Cellulitis: Gradually improving. Showing improvement in cellulitis, still stasis changes bilaterally, left leg which was more bothersome and erythematous, with subsiding symptoms. Continue antibiotics. Edema with improvement with dialysis. Not a good candidate for compression therapy as discussed with him and his . Will need to follow-up with wound care regarding ulcers on right lower leg. Discussed venous duplex with him and his , negative for DVT. Reviewed prior arterial duplex. Reviewed vitals, CBC, CMP. Will give antibiotic coverage with Zosyn, linezolid. Reviewed MRSA PCR. Noted negative. Stop linezolid. Monitor for risk of C. difficile, cytopenia, SJS. (3) Lower extremity edema: Additional dialysis today. Reviewed nephrology note. With improvement in lower extremity edema, tolerated repeat dialysis. Monitor for risk of hypotension after dialysis. Blood pressures holding. Edema with improvement. Poor circulation of lower extremities including venous stasis, suboptimal arterial circulation in addition to low overall ejection fraction, significant stasis in the lower extremities. Discussed with him and his elevation of lower extremities. Not a good candidate for compression therapy. Reviewed nephrology note. Discussed with nursing, manager case management. (4) ESRD (end stage renal disease): Dialysis today. Reviewed nephrology note.Reviewed CBC, CMP, noted mild hyperkalemia potassium 5.7. End-stage kidney disease (on dialysis) : Patient with ESRD on thrice-weekly dialysis, last session Tuesday, missed today due to concern for blood clot. No missed sessions prior. Blood pressure sometimes runs low during dialysis, requiring medication support. Mild hyperkalemia noted (potassium upper normal at 5). - Resume dialysis as soon as feasible, possibly with extra session if needed for volume removal. - Monitor potassium and manage with renal diet. - Continue to monitor blood pressure during dialysis; use midodrine as needed for hypotension. Discussed with camp counselor, initial admission recommended to intensive care unit due to risk of blood pressure decreased with need for more intensive dialysis. (5) Leg ulcer: Leg ulcers on the right mid rhodes, chronic previously which had healed up but opened up recently again with worsened edema. Suspect venous stasis. Elevating extremities. Hemodialysis as above for fluid overload. Will need wound care follow-up. Plan CHF: Chronic systolic, continue diuresis with Lasix, dialysis. He does still make some urine. Prior ejection fraction 40% on review of echo from November. On chronic 4 L nasal cannula oxygen. Does appear to have desaturation down to 70s from what he and his describe at home with exertion. Will need home O2 evaluation prior to discharge. Restrictive lung disease: Reports possible COPD, chronically on 4 L nasal cannula oxygen. Continue. Has been told to increase oxygen to 6 L on exertion, but appears even with that sometimes desaturates down to 70s. DM2: Continue daily Lantus. Monitor POC glucose. Sliding scale insulin. Consistent carbohydrate diet. Atrial fibrillation : History of atrial fibrillation, on Eliquis. EKG shows atrial fibrillation and right bundle branch block (pending official read). - Continue Eliquis unless contraindicated. - Monitor cardiac rhythm and rate. Mild hyperkalemia : Potassium upper normal at 5, likely related to missed dialysis session today. No acute symptoms reported. - Monitor potassium levels. - Resume dialysis to facilitate potassium removal. - renal diet. PDMP PDMP Reviewed: Not Reviewed Attestations 2 Medical Necessity Statement*: Place in observation for additional assessment management of bradycardia without appropriate pacing, fluid overload and gentleman with ESRD, underlying congestive heart failure with decreased ejection fraction, with lower extremity edema with superimposed cellulitis. and High MDM includes amount and/or complexity of data reviewed/ordered [ previous or external records, resulted lab(s)/test(s), ordered lab(s)/test(s) and other healthcare professional discussion] and described risk of complication, morbidity or mortality of management as documented Diagnoses Bradycardia R00.1 Cellulitis L03.90 Lower extremity edema R60.0 ESRD (end stage renal disease) N18.6 Leg ulcer L97.909
[2025-03-01] MEDS: epoetin alfa-epbx 10,000 unit/ml SDV (ESRD) 10000 UNIT SUBCUT (16:08)
[2025-03-01] MEDS: lidocaine-prilocaine cream 5 gm 1 APPLIC TOPICAL (16:39)
[2025-03-01] MEDS: midodrine 5 mg TABLET PO (16:54)
[2025-03-01 17:52] LABS: Glucose Point of Care 113 mg/dL (70-110)
[2025-03-01] MEDS: albumin 12.5 GM/50 ML VIAL IV ×2 (18:21→18:56)
[2025-03-01 20:36] LABS: Glucose Point of Care 133 mg/dL (70-110)
[2025-03-01] MEDS: cetirizine 10 mg Tablet PO (20:38)
[2025-03-01] MEDS: atorvastatin 40 mg Tablet 80 MG PO (20:38)
[2025-03-02] VITALS (32 sets, daily range): BP systolic 91–142; BP diastolic 45–90; PULSE 51–124; RESP 14–23; TEMP 36.6–37.2; O2SAT 86–98
[2025-03-02] MEDS: ipratropium-albuterol 3 mL Neb INHALATION ×4 (01:30→20:06)
[2025-03-02 05:08] LABS: Basophils % 0.5 %; Eosinophils # 0.2 10^3/uL (0.0-0.8); Hematocrit 31.6 % (37-53); Lymphocytes # 0.4 10^3/uL (0.8-4.8); Lymphocytes % 4.5 %; Mean Corpuscular HGB Conc 32.3 g/dL (30-55); Mean Corpuscular Hemoglobin 31.3 pg (27-33); Mean Corpuscular Volume 96.9 fl (82-101); Mean Platelet Volume 10.5 fL (7.4-10.4); Monocytes # 0.9 10^3/uL (0.2-0.9); Monocytes % 10.1 %; Neutrophils # 7.29 10^3/uL (1.8-7.7); Neutrophils % 82.6 %; Nucleated Red Blood Cells % 0 %; Platelet Count 182 10^3/cmm (157-399); Red Blood Count 3.26 10^6/uL (3.85-5.65); Red Cell Distribution Width 17.4 % (12.1-15.1); White Blood Count 8.83 10^3/uL (3.29-11.43)
[2025-03-02 05:33] LABS: Alanine Aminotransferase 9 U/L (0-41); Albumin Level 3.3 g/dL (3.5-5.2); Alkaline Phosphatase 102 U/L (40-130); Anion Gap 18.2 (5-19); Aspartate Amino Transferase 8 U/L (0-40); Blood Urea Nitrogen 19 mg/dL (8-23); Carbon Dioxide 26 mmol/L (22-29); Chloride 96 mmol/L (98-107); Glucose 139 mg/dL (65-115); Magnesium 1.8 mg/dL (1.7-2.3); Osmolality Calculated 285 mOsm/kg (285-295); Phosphorus 3.5 mg/dL (2.5-4.5); Potassium 5.2 mmol/L (3.5-5.1); Sodium 135 mmol/L (136-145); Total Bilirubin 0.8 mg/dL (0.15-1.2); Total Protein 7.3 g/dL (6.6-8.7)
[2025-03-02] MEDS: piperacillin-tazobactam 3.375 GM in sodium chloride 0.9% (plus) 50 ML IV ×2 (06:26→18:23)
[2025-03-02] MEDS: citalopram 20 mg Tablet 10 MG PO (06:26)
[2025-03-02] MEDS: roflumilast 500 mcg Tablet PO (06:26)
[2025-03-02] MEDS: insulin glargine 100 units/1 mL 35 UNIT SUBCUT (06:26)
[2025-03-02 07:24] LABS: Glucose Point of Care 143 mg/dL (70-110)
[2025-03-02] MEDS: budesonide 0.5 mg/2 mL Neb 0.25 MG INHALATION ×2 (08:16→20:06)
[2025-03-02] MEDS: ondansetron 2 mg/ML SDV 2 mL 4 MG IVP (08:33)
[2025-03-02] MEDS: insulin lispro 100 unit/1 mL SUBCUT (09:03)
[2025-03-02] MEDS: gabapentin 300 mg Capsule PO ×2 (09:04→17:37)
[2025-03-02] MEDS: isosorbide mononitrate ER 30 mg Tablet 15 MG PO ×2 (09:05→17:37)
[2025-03-02] MEDS: sevelamer 800 mg Tablet 2400 MG PO ×2 (09:05→17:35)
[2025-03-02] MEDS: metoprolol succinate ER (24 HR) 25 mg Tablet 12.5 MG PO (09:06)
[2025-03-02] MEDS: apixaban 5 mg Tablet 2.5 MG PO ×2 (09:08→17:37)
[2025-03-02] MEDS: pantoprazole DR 40 mg Tablet PO ×2 (09:09→17:37)
[2025-03-02] MEDS: ticagrelor 90 mg Tablet PO ×2 (09:09→17:37)
[2025-03-02] MEDS: FUROsemide 40 mg Tablet PO ×2 (09:09→17:36)
[2025-03-02] MEDS: fluticasone nasal spray 16gm Btl 1 SPRAY INTRANASAL (09:11)
--- NOTE | 2025-03-02 09:26 | P.PN_ITS ---
Subjective 2 Subjective: The patient was seen and examined. The patient remains very short of breath with orthopnea dyspnea no nausea and vomited this morning still has leg edema and tenderness. Medications: Reviewed: Yes Medication Review Details: Current Medications Acetaminophen (Acetaminophen 325 Mg Tablet) 650 mg PO Q6H PRN PRN Reason: Mild/Mod Pain Or Temp >/= 101 Albuterol/Ipratropium (Ipratropium-Albuterol 3 Ml Neb) 3 ml INHALATION Q6H.RESP [facility] Last Admin: 03/02/25 08:16 Dose: 3 ml Albuterol/Ipratropium (Ipratropium-Albuterol 3 Ml Neb) 3 ml INHALATION Q4H PRN PRN Reason: SHORTNESS OF BREATH Allopurinol (Allopurinol 100 Mg Tablet) 100 mg PO DAILY PRN PRN Reason: Gout Apixaban (Apixaban 5 Mg Tablet) 2.5 mg PO BID [facility] Last Admin: 03/02/25 09:08 Dose: 2.5 mg Atorvastatin Calcium (Atorvastatin 40 Mg Tablet) 80 mg PO DAILY@1800 [facility] Last Admin: 03/01/25 20:38 Dose: 80 mg Budesonide (Budesonide 0.5 Mg/2 Ml Neb) 0.25 mg INHALATION BID.RESPIRATORY [facility] Last Admin: 03/02/25 08:16 Dose: 0.25 mg Cetirizine HCl (Cetirizine 10 Mg Tablet) 10 mg PO DAILY@18 [facility] Last Admin: 03/01/25 20:38 Dose: 10 mg Citalopram Hydrobromide (Citalopram 20 Mg Tablet) 10 mg PO QAM [facility] Last Admin: 03/02/25 06:26 Dose: 10 mg Cyclobenzaprine HCl (Cyclobenzaprine 10 Mg Tablet) 10 mg PO TID PRN PRN Reason: Muscle Spasm Docusate Sodium (Docusate Sodium 100 Mg Capsule) 200 mg PO BID@ [facility] Last Admin: 03/02/25 09:04 Dose: Not Given Fluticasone Propionate (Fluticasone Nasal [place] 16gm Btl) 1 spray INTRANASAL DAILY [facility] Last Admin: 03/02/25 09:11 Dose: 1 spray Furosemide (Furosemide 40 Mg Tablet) 40 mg PO BID [facility] Last Admin: 03/02/25 09:09 Dose: 40 mg Gabapentin (Gabapentin 300 Mg Capsule) 300 mg PO BID@ [facility] Last Admin: 03/02/25 09:04 Dose: 300 mg Glucagon (Glucagon 1 Mg/Ml Kit 1 Ml) 1 mg IM ONCE PRN; Protocol PRN Reason: Adult Acute Hypoglycemia Nursing Prot. Guaifenesin (Guaifenesin 100 Mg/5 Ml Udc 10 Ml) 200 mg PO Q4H PRN PRN Reason: COUGH Dextrose (D5w) 500 mls @ 0 mls/hr IV ONCE PRN; Protocol PRN Reason: Adult Acute Hypoglycemia Prot Dextrose (D10w) 125 mls @ 750 mls/hr IV PRN PRN; Protocol PRN Reason: Adult Acute Hypoglycemia Nursing Protocol Dextrose (D10w) 250 mls @ 1,000 mls/hr IV PRN PRN; Protocol PRN Reason: Adult Acute Hypoglycemia Nursing Protocol Piperacillin Sod/Tazobactam (Sod 3.375 gm/ Sodium Chloride) 50 mls @ 12.5 mls/hr IV Q12H [facility]; Protocol Last Admin: 03/02/25 06:26 Dose: 12.5 mls/hr Insulin Glargine (Insulin Glargine 100 Units/1 Ml) 35 unit SUBCUT QAM [facility] Last Admin: 03/02/25 06:26 Dose: 35 unit Insulin Human Lispro (Insulin Lispro 100 Unit/1 Ml) 0 unit SUBCUT WM&BEDTIME [facility]; Protocol Last Admin: 03/02/25 09:03 Dose: 2 unit Isosorbide Mononitrate (Isosorbide Mononitrate Er 30 Mg Tablet) 15 mg PO BID [facility] Last Admin: 03/02/25 09:05 Dose: 15 mg Lidocaine/Prilocaine (Lidocaine-Prilocaine Cream 5 Gm) 1 applic TOPICAL QID [facility] Last Admin: 03/01/25 21:03 Dose: Not Given Metoprolol Succinate (Metoprolol Succinate Er (24 Hr) 25 Mg Tablet) 12.5 mg PO DAILY [facility] Last Admin: 03/02/25 09:06 Dose: 12.5 mg Midodrine (Midodrine 5 Mg Tablet) 5 mg PO DAILY PRN PRN Reason: SYSTOLIC BLOOD PRESSURE Last Admin: 03/01/25 16:54 Dose: 5 mg Nitroglycerin (Nitroglycerin 0.4 Mg Sublingual Tablet) 0.4 mg SUBLINGUAL Q5M PRN PRN Reason: CHEST PAIN Ondansetron HCl (Ondansetron 2 Mg/Ml Sdv 2 Ml) 4 mg IVP Q8H PRN PRN Reason: vomiting, or N/V if npo Last Admin: 03/02/25 08:33 Dose: 4 mg Oxycodone/Acetaminophen (Oxycodone-Apap 5-325 Mg Tablet) 0.5 - 1 tab PO Q4H PRN PRN Reason: PAIN Last Admin: 03/01/25 14:23 Dose: 1 tab Pantoprazole Sodium (Pantoprazole Dr 40 Mg Tablet) 40 mg PO BID [facility] Last Admin: 03/02/25 09:09 Dose: 40 mg Polyethylene Glycol (Polyethylene Glycol 3350 Pkt 17 Gm) 4 gm PO DAILY PRN PRN Reason: Constipation Roflumilast (Roflumilast 500 Mcg Tablet) 500 mcg PO QAM [facility] Last Admin: 03/02/25 06:26 Dose: 500 mcg Sevelamer Carbonate (Sevelamer 800 Mg Tablet) 2,400 mg PO TID@, [facility] Last Admin: 03/02/25 09:05 Dose: 2,400 mg Ticagrelor (Ticagrelor 90 Mg Tablet) 90 mg PO BID [facility] Last Admin: 03/02/25 09:09 Dose: 90 mg Vitals/I&O/Wt Last Vital Signs Temp 97.2 F L 03/01/25 20:00 Pulse 74 03/02/25 08:17 Resp 20 H 03/02/25 08:17 BP 129/77 03/02/25 05:00 Pulse Ox 93 03/02/25 08:17 O2 Del Method Nasal Cannula 03/02/25 08:17 O2 Flow Rate 4 03/02/25 08:17 03/01/25 03/02/25 03/02/25 22:59 06:59 14:59 Intake Total 235 / 1545 200 / 1745 Output Total 0 / 0 Balance 235 / 1545 200 / 1745 Weight last 48 hrs Weight 125.736 kg Weight 128.231 kg Weight 130.4 kg Physical Exam 2 Narrative: awake, alert, interactive, sitting up in bed, short of breath Vital signs noted requiring oxygen. HEENT normocephalic/atraumatic. Neck is supple. Lungs -crackles bilaterally Heart: Regular rhythm, positive systolic murmur positive S1-S2. Abdomen soft positive bowel sounds. Extremities- + b/l lower extremity edema. Improving purple/red color on legs. Neuro - mental status normal, a,a, o x 3, FROM x4 Poor distal pulses Data 03/02/25 04:47 03/02/25 04:47 A&P Assessment and plan (1) ESRD (end stage renal disease): 79-year-old man 1. ESRD -as an outpatient the patient only dialyzes 3 times a week. The patient here is tolerating dialysis we are able to remove around 1 to 1.5 L per dialysis session. The patient remains very short of breath between sessions. I will repeat dialysis today and see if we can make it till Tuesday. I am uncertain how we plan on discharging this patient to thrice weekly dialysis. 2. Leg edema and wounds. Patient is no longer on antibiotics care as per medical team 3. cortisol of 14.5 4. Permanent pacemaker for sick sinus syndrome/A-fib 5. chronic HFrEF- requires midodrine for dialysis. no pericardial effusion on November 2024 echo 6. Monitor abdominal exam with nausea and vomiting meds reviewed tsh 2.8 - pth 297- okay for ESRD. can give zemplar w/ HD discussed w/ pt and ICU staff The patient was seen and examined with the aid of a nurse using audiovisual equipment. The patient consented to hemodialysis and to telehealth. Plan See above. PDMP PDMP Reviewed: Not Reviewed Attestations 2 Medical Necessity Statement*: Heart failure reduced EF, ESRD, hypertension, volume overload Time Spent in Patient Care: Greater than 35 minutes (>than 50% of time spent in counselling and/or direct pt care on unit) . Coding Level of Care Code Acute Code for Chg Fwd Diagnoses ESRD (end stage renal disease) N18.6
--- NOTE | 2025-03-02 10:54 | XRR_ITS ---
PROCEDURE INFORMATION: Exam: XR Left Knee Exam date and time: 03/02/2025 1:13 PM Age: 79 years old Clinical indication: Pain; Knee; Left; Additional info: Lt knee pain TECHNIQUE: Imaging protocol: Radiologic exam of the left knee. Views: 1 or 2 views. COMPARISON: DX XR knee LT 3V* [id number] 08/17/2019 11:07 AM FINDINGS: Bones/joints: There is diffuse osteopenia. There is moderate narrowing of the femorotibial and femoropatellar joints with subchondral sclerosis and small marginal spurs. There is a subtle lucency within the lateral tibial plateau which could represent a fracture. Soft tissues: There is mild suprapatellar soft tissue fullness suspicious for joint effusion. Vascular calcification is noted. XR/XR knee LT 1-2V [id number] IMPRESSION: 1. Diffuse osteopenia. 2. Moderate tricompartmental osteoarthritis. 3. Subtle lucency in the lateral tibial plateau which could represent a lateral tibial plateau fracture. If clinically indicated, CT or MRI may be helpful for further evaluation.
[2025-03-02] MEDS: epoetin alfa-epbx 10,000 unit/ml SDV (ESRD) 6000 UNIT SUBCUT (11:02)
[2025-03-02 11:22] LABS: Glucose Point of Care 125 mg/dL (70-110)
[2025-03-02] MEDS: lidocaine-prilocaine cream 5 gm 1 APPLIC TOPICAL (11:23)
[2025-03-02] MEDS: midodrine 5 mg TABLET PO (11:23)
[2025-03-02 11:30] LABS: NT Pro B Type Natriuretic Pept 33419 pg/mL (0-450)
[2025-03-02] MEDS: albumin 12.5 GM/50 ML VIAL IV ×3 (12:20→13:49)
--- NOTE | 2025-03-02 15:42 | CTR_ITS ---
PROCEDURE INFORMATION: Exam: CT Left Lower Extremity Without Contrast, Knee Exam date and time: 03/02/2025 5:10 PM Age: 79 years old Clinical indication: Pain; Swelling, leg or foot; Knee; Left; Additional info: Pain, swelling TECHNIQUE: Imaging protocol: CT of the left lower extremity without contrast was performed. Exam focused on the knee. Radiation optimization: All CT scans at this facility use at least one of these dose optimization techniques: automated exposure control; mA and/or kV adjustment per patient size (includes targeted exams where dose is matched to clinical indication); or iterative reconstruction. COMPARISON: CR (LOW EXM, ) 03/02/2025 1:13 PM RADIATION DOSE METRICS: Total DLP (mGy-cm): 393.38 FINDINGS: Bones/joints: There is diffuse osteopenia. There is moderate narrowing of the femorotibial and patellofemoral joints with subchondral sclerosis and marginal spurs. There is irregularity of the articular surface of the lateral tibial plateau with hypertrophic spurs projecting cephalad from the mid to anterior aspect. No definite acute fracture is detected. A large 15 mm subchondral cyst/geode is seen within the mid tibial plateau deep to the tibial spines. Soft tissues: There is diffuse soft tissue edema. There is a moderate-sized joint effusion. There is fatty atrophy of the medial head of the gastrocnemius muscle. Vascular calcification is noted. CT/CT knee LT wo con* [id number] IMPRESSION: 1. Diffuse osteopenia. 2. Moderate tricompartmental osteoarthritis. 3. Irregularity of the articular surface of the lateral tibial plateau with hypertrophic spurs projecting cephalad along the mid to lateral aspect. 4. No definite acute fracture detected. 5. Moderate-sized joint effusion and diffuse soft tissue edema. 6. If there is persistent clinical concern, MRI may be helpful for further evaluation.
--- NOTE | 2025-03-02 15:42 | P.PN_ITS ---
Subjective 2 Subjective: Patient was seen this morning, currently alert oriented x 3, following all commands he does feel nauseous this morning, does have complaints of right upper quadrant abdominal pain, he still has his gallbladder he tells me, is never really caused him problems in the past, he also complains of left knee pain and tightness, Vitals/I&O/Wt Last Vital Signs Temp 97.9 F 03/02/25 13:50 Pulse 61 03/02/25 14:32 Resp 18 03/02/25 14:25 BP 115/67 03/02/25 13:50 Pulse Ox 95 03/02/25 14:25 O2 Del Method Nasal Cannula 03/02/25 14:25 O2 Flow Rate 4 03/02/25 14:25 03/02/25 03/02/25 03/02/25 06:59 14:59 22:59 Intake Total 200 / 1745 424 / 424 Output Total 0 / 0 Balance 200 / 1745 424 / 424 Weight last 48 hrs Weight 125.736 kg Weight 128.231 kg Physical Exam 2 Const: COMMON NORMALS: no acute distress and patient oriented x3 Resp: COMMON NORMALS: normal respiratory effort, No retractions and No use of accessory muscles AUSCULTATION: crackles Cardio: COMMON NORMALS: regular rate, regular rhythm, S1 normal heart sound present and S2 normal heart sound present RATE: regular rate RHYTHM: r egular rhythm HEART SOUNDS: S1 normal heart sound present and S2 normal heart sound present GI: COMMON NORMALS: Normal to inspection, nondistended, normoactive bowel sounds present Extremity: NARRATIVE EXTREMITY EXAM: 2+ pitting edema bilateral lower extremi ties up to the level of the thighs Neuro: COMMON NORMALS: patient oriented x3 Psych: COMMON NORMALS: mental status grossly normal Data 03/02/25 04:47 03/02/25 04:47 A&P Assessment and plan (1) Bradycardia: (2) Cellulitis: (3) Lower extremity edema: (4) ESRD (end stage renal disease): (5) Leg ulcer: (6) CHF exacerbation: (7) Abdominal pain: (8) Accelerated essential hypertension: (9) Ischemic cardiomyopathy: (10) Congestive heart failure: (11) Hypervolemia: Plan Systolic CHF exacerbation - Hypervolemia - BNP over 33,000 Cardiac echo November 2024 -CONCLUSIONS Diffuse hypokinesia of the left ventricle with a paradoxical septal motion. LV ejection fraction 40%. (visual) Normal right ventricular size and systolic function. Catheter/pacemaker wire in the right ventricular cavity. Mildly increased right atrial size. Catheter/pacemaker wire in the right atrial appendage. Mildly increased left atrial size. Thickened mitral valve. Mild mitral annular calcification. Moderate mitral annular calcification. Mild mitral valve regurgitation. Thickened aortic valve. Trace to mild tricuspid valve regurgitation. There is no pericardial effusion. There are no intracardiac masses. Normal inferior vena cava. Compared to the study from 03/08/2023, there is slight drop in the LV ejection fraction from 48% to 40% Plan -Continue oxygen therapy - Continue IV Lasix - Continue inpatient dialysis - Placed on fluid restrictions - Monitor respiratory status closely History of CAD -History of high-grade complexes in the right coronary artery, mild disease in the left system -Underwent PCI in [place] History of restrictive lung disease - Chronically on 4 L, 6 L with exertion Type 2 diabetes mellitus Atrial fibrillation - Continue Eliquis Tachycardia/bradycardia -History of sick sinus/atrial fibrillation, pacemaker in place - Pacemaker interrogation, no acute findings - Cardiology consulted - Spoke to cardiology, will continue to monitor Cellulitis - Bilateral lower extremities - Zyvox has been stopped - Continue Zosyn - Venous ultrasound negative for DVT Bilateral arm edema, secondary fluid overload Stage renal disease on dialysis Leg ulcer, continue to monitor, wound care History of pacemaker placement Hyperkalemia - Will receive dialysis today Gallbladder ultrasound due to right upper quadrant pain, nausea, vomiting Left knee pain, CT scan left knee PDMP PDMP Reviewed: Not Reviewed Attestations 2 Medical Necessity Statement*: Patient requires hospitalization for fluid overload, systolic CHF requiring inpatient dialysis Diagnoses Bradycardia R00.1 Cellulitis L03.90 Lower extremity edema R60.0 ESRD (end stage renal disease) N18.6 Leg ulcer L97.909 CHF exacerbation I50.9 Abdominal pain R10.9 Accelerated essential hypertension I10 Ischemic cardiomyopathy I25.5 Congestive heart failure, unspecified HF chronicity, unspecified heart failure type I50.9 Heart failure chronicity: unspecified Heart failure type: unspecified Hypervolemia E87.70
[2025-03-02 16:13] LABS: Gamma Glutamyl Transferase 72 U/L (8-61); Lipase 42 U/L (13-60)
--- NOTE | 2025-03-02 16:39 | P.PN_ITS ---
Subjective 2 Subjective: I saw Mr. Moulton this morning. Examined progress overnight, reviewed lab data and state trooper during last 24 hours. Clinically from cardiovascular point of view he is completely asymptomatic. No angina or any active heart failure symptoms. Overnight and this morning state trooper revealed no further bradycardia at the minimum heart rate overnight noted was 54 per minute. Patient mainly having pacing rhythm with intermittent PVCs and primarily he is pacing more than 90% of the time with the heart rate of 60. Medications: Medication Review Details: Current medications reviewed and adjusted accordingly Vitals/I&O/Wt Last Vital Signs Temp 97.9 F 03/02/25 16:24 Pulse 51 L 03/02/25 16:24 Resp 18 03/02/25 16:24 BP 119/45 03/02/25 16:24 Pulse Ox 92 03/02/25 16:00 O2 Del Method Nasal Cannula 03/02/25 16:00 O2 Flow Rate 4 03/02/25 16:00 03/02/25 03/02/25 03/02/25 06:59 14:59 22:59 Intake Total 200 / 1745 544 / 544 650 / 1194 Output Total 0 / 0 2559 / 2559 Balance 200 / 1745 544 / 544 -1909 / -1365 Weight last 48 hrs Weight 286 lb 9.615 oz Weight 277 lb 3.2 oz Weight 282 lb 11.2 oz Physical Exam 2 Const: OTHER: Patient sitting comfortably on his bed. Not in any respiratory distress. HENMT: OTHER: Unremarkable Eye: OTHER: Normal Resp: OTHER: Good air entry on chest auscultation bilaterally. No added sounds Cardio: OTHER: Normal 1st and 2nd heart sounds. There is mild systolic murmur at the apex. GI: OTHER: Obese abdomen however soft nontender. Bowel sounds audible. Extremity: NARRATIVE EXTREMITY EXAM: Trace bilateral lower extremity edema, chronic skin changes. Neuro: OTHER: Grossly intact Skin: NARRATIVE SKIN EXAM: Skin warm and dry. Data 03/02/25 04:47 03/02/25 04:47 A&P Assessment and plan (1) Bradycardia: (2) Ischemic cardiomyopathy: Plan 79-year-old male patient with ischemic cardiomyopathy and on dialysis for chronic renal failure. Clinically stable asymptomatic cardiac status. No active angina and clinically he is euvolemic. Patient just had a dialysis today and his vitals are stable. The state trooper overnight showed primarily pacing heart rate more than 90% of the time. He does get intermittent PVCs. Also is seen occasional pacing spikes without capturing. Plan is to continue to monitor overnight if he remains stable we will discharge him home and arrange complete pacer interrogation. PDMP PDMP Reviewed: Not Reviewed Attestations 2 Medical Necessity Statement*: CHF bradycardia with query malfunctioning pacemaker Chronic renal failure on dialysis Coding Level of Care Code 82786 Diagnoses Bradycardia R00.1 Ischemic cardiomyopathy I25.5 Time Spent (min) 20
[2025-03-02 17:29] LABS: Glucose Point of Care 96 mg/dL (70-110)
[2025-03-02] MEDS: cetirizine 10 mg Tablet PO (17:36)
[2025-03-02] MEDS: nystatin powder 15 gm Btl 1 APPLIC TOPICAL (17:36)
[2025-03-02] MEDS: atorvastatin 40 mg Tablet 80 MG PO (17:37)
[2025-03-02 21:18] LABS: Glucose Point of Care 127 mg/dL (70-110)
[2025-03-02] MEDS: oxyCODONE-APAP 5-325 mg Tablet PO (22:52)
[2025-03-03] VITALS (25 sets, daily range): BP systolic 89–142; BP diastolic 51–89; PULSE 61–78; RESP 14–22; TEMP 36.6–36.7; O2SAT 72–97
[2025-03-03] MEDS: ipratropium-albuterol 3 mL Neb INHALATION ×4 (02:46→19:57)
[2025-03-03] MEDS: roflumilast 500 mcg Tablet PO (05:25)
[2025-03-03] MEDS: citalopram 20 mg Tablet 10 MG PO (05:25)
[2025-03-03 05:33] LABS: Basophils # 0.1 10^3/uL (0.0-0.1); Basophils % 0.9 %; Eosinophils # 0.1 10^3/uL (0.0-0.8); Eosinophils % 1.9 %; Hematocrit 31.3 % (37-53); Lymphocytes # 0.6 10^3/uL (0.8-4.8); Lymphocytes % 9.1 %; Mean Corpuscular HGB Conc 31.3 g/dL (30-55); Mean Corpuscular Hemoglobin 31.1 pg (27-33); Mean Corpuscular Volume 99.4 fl (82-101); Mean Platelet Volume 10.7 fL (7.4-10.4); Monocytes # 0.7 10^3/uL (0.2-0.9); Monocytes % 10.6 %; Neutrophils # 5.22 10^3/uL (1.8-7.7); Neutrophils % 76.9 %; Nucleated Red Blood Cells % 0 %; Platelet Count 175 10^3/cmm (157-399); Red Blood Count 3.15 10^6/uL (3.85-5.65); Red Cell Distribution Width 17.6 % (12.1-15.1); White Blood Count 6.79 10^3/uL (3.29-11.43)
[2025-03-03] MEDS: oxyCODONE-APAP 5-325 mg Tablet PO ×2 (05:33→20:48)
[2025-03-03] MEDS: piperacillin-tazobactam 3.375 GM in sodium chloride 0.9% (plus) 50 ML IV ×2 (06:26→19:23)
[2025-03-03 06:45] LABS: Alanine Aminotransferase 9 U/L (0-41); Albumin Level 3.3 g/dL (3.5-5.2); Alkaline Phosphatase 87 U/L (40-130); Anion Gap 19.5 (5-19); Aspartate Amino Transferase 10 U/L (0-40); Blood Urea Nitrogen 16 mg/dL (8-23); Calcium 9.1 mg/dL (8.5-10.5); Carbon Dioxide 25 mmol/L (22-29); Chloride 100 mmol/L (98-107); Creatinine Clr Calc Pharmacy 27.9417; Globulin 3.9 g/dL (1.3-4.6); Glucose 89 mg/dL (65-115); Magnesium 1.8 mg/dL (1.7-2.3); Osmolality Calculated 291 mOsm/kg (285-295); Phosphorus 3.2 mg/dL (2.5-4.5); Potassium 4.5 mmol/L (3.5-5.1); Sodium 140 mmol/L (136-145); Total Bilirubin 0.7 mg/dL (0.15-1.2); Total Protein 7.2 g/dL (6.6-8.7)
[2025-03-03 06:46] LABS: NT Pro B Type Natriuretic Pept 28729 pg/mL (0-450)
--- NOTE | 2025-03-03 07:00 | XRR_ITS ---
PROCEDURE INFORMATION: Exam: XR Chest Exam date and time: 03/03/2025 6:35 AM Age: 79 years old Clinical indication: Shortness of breath; Additional info: SOB TECHNIQUE: Imaging protocol: Radiologic exam of the chest. Views: 1 view. COMPARISON: CR (CHEST, ) 02/27/2025 6:45 AM FINDINGS: Tubes, catheters and devices: Single lead pacemaker/defibrillator. Lungs: Mild vascular prominence with mild interstitial edema. Right lower lobe pulmonary infiltrate minimally improved. Pleural spaces: Unremarkable. No pleural effusion. No pneumothorax. Heart/Mediastinum: See Vasculature finding. Vasculature: Moderate cardiomegaly and uncoiling of the thoracic aorta. Bones/joints: Unremarkable. XR/XR chest 1V portable [id number] IMPRESSION: Slightly improved aeration at the right lung base. Otherwise no change.
[2025-03-03] MEDS: budesonide 0.5 mg/2 mL Neb 0.25 MG INHALATION ×2 (08:04→19:57)
[2025-03-03 08:33] LABS: Glucose Point of Care 60 mg/dL (70-110)
[2025-03-03] MEDS: apixaban 5 mg Tablet 2.5 MG PO ×2 (08:39→17:33)
[2025-03-03] MEDS: FUROsemide 40 mg Tablet PO ×2 (08:40→17:33)
[2025-03-03] MEDS: fluticasone nasal spray 16gm Btl 1 SPRAY INTRANASAL (08:40)
[2025-03-03] MEDS: metoprolol succinate ER (24 HR) 25 mg Tablet 12.5 MG PO (08:41)
[2025-03-03] MEDS: isosorbide mononitrate ER 30 mg Tablet 15 MG PO ×2 (08:41→17:34)
[2025-03-03] MEDS: ticagrelor 90 mg Tablet PO ×2 (08:42→17:34)
[2025-03-03] MEDS: pantoprazole DR 40 mg Tablet PO ×2 (08:42→17:33)
[2025-03-03] MEDS: docusate sodium 100 mg Capsule 200 MG PO ×2 (08:46→17:39)
[2025-03-03] MEDS: sevelamer 800 mg Tablet 2400 MG PO ×2 (08:46→17:32)
[2025-03-03] MEDS: gabapentin 300 mg Capsule PO ×2 (08:46→17:34)
--- NOTE | 2025-03-03 08:55 | USCV_ITS ---
Shon Mullen Age: 79 Gender: M : 1945 Exam Date: 03/03/2025 09:17 Ordering Phys: Telly George MD Technologist: BELEM [place] [facility] [place] Eval EF BP: 117 / 66 HR: 72 Rhythm: Sinus Technical Quality: Adequate MEASUREMENTS (Male / Female) Normal Values 2D ECHO LV Diastolic Diameter PLAX 5.4 cm 4.2 - 5.9 / 3.9 - 5.3 cm IVS Diastolic Thickness 1.2 cm 0.6 - 1.0 / 0.6 - 0.9 cm IVS Systolic Thickness 1.4 cm LVPW Diastolic Thickness 2.0 cm 0.6 - 1.0 / 0.6 - 0.9 cm LVPW Systolic Thickness 1.9 cm LVOT Diameter 2.0 cm LV Ejection Fraction 2D Teich 55.5 % LV Ejection Fraction MOD 4C 50.0 % LV Ejection Fraction MOD 2C 50.0 % LV Ejection Fraction 2C AL 50.8 % LA Diameter 5.7 cm RA Systolic Volume 4C AL 110.3 ml RA Systolic Volume 4C MOD 106.5 ml LA Sys Volume AL 119.1 cm cubed LA Sys Volume Index AL 46.0 cm cubed/m squared Aorta at Sinotubular Diameter 2.1 cm M-MODE LA Ao Ratio MM 2.0 AV Cusp Separation MM 1.7 cm DOPPLER AV Peak Velocity 133.0 cm/s LVOT Peak Velocity 91.0 cm/s AV Area Cont Eq vti 2.1 cm squared AV Area Cont Eq pk 2.1 cm squared MV Peak Velocity 100.0 cm/s MV Area PHT 3.3 cm squared Mitral E to A Ratio 2.9 TR Peak Velocity 271.0 cm/s TR Peak Gradient 29.4 mmHg TR Mean Velocity 209.0 cm/s TR Mean Gradient 20.8 mmHg TR Velocity Time Integral 95.7 cm TV Peak E Velocity 115.0 cm/s PV Peak Velocity 71.0 cm/s FINDINGS Left Ventricle Mild global hypokinesis. Estimated LVEF 45% Right Ventricle Normal VE size and RV systolic function. There is a pacemaker wire in the RV. Right Atrium Mildly dilated right atrium. Left Atrium Dilated left atrium Mitral Valve Mild thickening of mitral valve. Mild mitral regurgitation. Aortic Valve Thickened aortic valve. No aortic stenosis Tricuspid Valve Structurally normal tricuspid valve. Mild tricuspid regurgitation. TR max gradient 35 mmHg. estimated PAP around 40 mmHg. Pulmonic Valve Pulmonic valve not well visualized. Trace pulmonary valve regurgitation. Pericardium Small pericardial effusion mainly around inferior and inferoposterior surface. Aorta Normal size aortic root and proximal ascending aorta. IVC Inferior vena cava not visualized. CONCLUSIONS Mild global hypokinesis. Estimated LVEF 45%. Normal RV size and function. Pacer wire in the RV cavity. Dilated right and left atria with mild mitral and tricuspid regurgitation. Mildly elevated RV and pulmonary pressures (40 mmHg). Small size pericardial effusion mainly around inferior and inferoposterior surface. Shubham Sosa MD (Electronically Signed) Final Date: 03 March 2025 11:45 S
--- NOTE | 2025-03-03 10:24 | PM.PN ---
Subjective Subjective: Feels better. Sitting in chair. Decreased shortness of breath still using nasal cannula oxygen. Still has edema but improving. Was only able to get medical clearance off on dialysis yesterday. Medications: Reviewed: Yes Medication Review Details: Current Medications Acetaminophen (Acetaminophen 325 Mg Tablet) 650 mg PO Q6H PRN PRN Reason: Mild/Mod Pain Or Temp >/= 101 Albuterol/Ipratropium (Ipratropium-Albuterol 3 Ml Neb) 3 ml INHALATION Q6H.RESP [facility] Last Admin: 03/03/25 08:04 Dose: 3 ml Albuterol/Ipratropium (Ipratropium-Albuterol 3 Ml Neb) 3 ml INHALATION Q4H PRN PRN Reason: SHORTNESS OF BREATH Allopurinol (Allopurinol 100 Mg Tablet) 100 mg PO DAILY PRN PRN Reason: Gout Apixaban (Apixaban 5 Mg Tablet) 2.5 mg PO BID [facility] Last Admin: 03/03/25 08:39 Dose: 2.5 mg Atorvastatin Calcium (Atorvastatin 40 Mg Tablet) 80 mg PO DAILY@1800 [facility] Last Admin: 03/02/25 17:37 Dose: 80 mg Budesonide (Budesonide 0.5 Mg/2 Ml Neb) 0.25 mg INHALATION BID.RESPIRATORY [facility] Last Admin: 03/03/25 08:04 Dose: 0.25 mg Cetirizine HCl (Cetirizine 10 Mg Tablet) 10 mg PO DAILY@18 [facility] Last Admin: 03/02/25 17:36 Dose: 10 mg Citalopram Hydrobromide (Citalopram 20 Mg Tablet) 10 mg PO QAM [facility] Last Admin: 03/03/25 05:25 Dose: 10 mg Cyclobenzaprine HCl (Cyclobenzaprine 10 Mg Tablet) 10 mg PO TID PRN PRN Reason: Muscle Spasm Docusate Sodium (Docusate Sodium 100 Mg Capsule) 200 mg PO BID@ [facility] Last Admin: 03/03/25 08:46 Dose: 200 mg Fluticasone Propionate (Fluticasone Nasal Edna 16gm Btl) 1 spray INTRANASAL DAILY [facility] Last Admin: 03/03/25 08:40 Dose: 1 spray Furosemide (Furosemide 40 Mg Tablet) 40 mg PO BID [facility] Last Admin: 03/03/25 08:40 Dose: 40 mg Gabapentin (Gabapentin 300 Mg Capsule) 300 mg PO BID@18 [facility] Last Admin: 03/03/25 08:46 Dose: 300 mg Glucagon (Glucagon 1 Mg/Ml Kit 1 Ml) 1 mg IM ONCE PRN; Protocol PRN Reason: Adult Acute Hypoglycemia Nursing Prot. Guaifenesin (Guaifenesin 100 Mg/5 Ml Udc 10 Ml) 200 mg PO Q4H PRN PRN Reason: COUGH Dextrose (D5w) 500 mls @ 0 mls/hr IV ONCE PRN; Protocol PRN Reason: Adult Acute Hypoglycemia Prot Dextrose (D10w) 125 mls @ 750 mls/hr IV PRN PRN; Protocol PRN Reason: Adult Acute Hypoglycemia Nursing Protocol Dextrose (D10w) 250 mls @ 1,000 mls/hr IV PRN PRN; Protocol PRN Reason: Adult Acute Hypoglycemia Nursing Protocol Piperacillin Sod/Tazobactam (Sod 3.375 gm/ Sodium Chloride) 50 mls @ 12.5 mls/hr IV Q12H [facility]; Protocol Last Admin: 03/03/25 06:26 Dose: 12.5 mls/hr Albumin Human (Albumin) 12.5 gm in 50 mls @ 60 mls/hr IV PRN PRN PRN Reason: Hypotension and/or symptomatic Last Infusion: 03/02/25 14:39 Dose: Infused Insulin Glargine (Insulin Glargine 100 Units/1 Ml) 35 unit SUBCUT QAM [facility] Last Admin: 03/03/25 05:31 Dose: Not Given Insulin Human Lispro (Insulin Lispro 100 Unit/1 Ml) 0 unit SUBCUT WM&BEDTIME [facility]; Protocol Last Admin: 03/03/25 08:23 Dose: Not Given Isosorbide Mononitrate (Isosorbide Mononitrate Er 30 Mg Tablet) 15 mg PO BID [facility] Last Admin: 03/03/25 08:41 Dose: 15 mg Lidocaine/Prilocaine (Lidocaine-Prilocaine Cream 5 Gm) 1 applic TOPICAL QID [facility] Last Admin: 03/03/25 08:47 Dose: Not Given Metoprolol Succinate (Metoprolol Succinate Er (24 Hr) 25 Mg Tablet) 12.5 mg PO DAILY [facility] Last Admin: 03/03/25 08:41 Dose: 12.5 mg Midodrine (Midodrine 5 Mg Tablet) 5 mg PO DAILY PRN PRN Reason: SYSTOLIC BLOOD PRESSURE Last Admin: 03/02/25 11:23 Dose: 5 mg Nitroglycerin (Nitroglycerin 0.4 Mg Sublingual Tablet) 0.4 mg SUBLINGUAL Q5M PRN PRN Reason: CHEST PAIN Nystatin (Nystatin Powder 15 Gm Btl) 1 applic TOPICAL BID [facility] Last Admin: 03/02/25 17:36 Dose: 1 applic Ondansetron HCl (Ondansetron 2 Mg/Ml Sdv 2 Ml) 4 mg IVP Q8H PRN PRN Reason: vomiting, or N/V if npo Last Admin: 03/02/25 08:33 Dose: 4 mg Oxycodone/Acetaminophen (Oxycodone-Apap 5-325 Mg Tablet) 0.5 - 1 tab PO Q4H PRN PRN Reason: PAIN Last Admin: 03/03/25 05:33 Dose: 1 tab Pantoprazole Sodium (Pantoprazole Dr 40 Mg Tablet) 40 mg PO BID [facility] Last Admin: 03/03/25 08:42 Dose: 40 mg Polyethylene Glycol (Polyethylene Glycol 3350 Pkt 17 Gm) 4 gm PO DAILY PRN PRN Reason: Constipation Roflumilast (Roflumilast 500 Mcg Tablet) 500 mcg PO QAM [facility] Last Admin: 03/03/25 05:25 Dose: 500 mcg Sevelamer Carbonate (Sevelamer 800 Mg Tablet) 2,400 mg PO TID@,, [facility] Last Admin: 03/03/25 08:46 Dose: 2,400 mg Ticagrelor (Ticagrelor 90 Mg Tablet) 90 mg PO BID [facility] Last Admin: 03/03/25 08:42 Dose: 90 mg Vitals/I&O/Wt Last Vital Signs Temp 98.1 F 03/03/25 08:00 Pulse 66 03/03/25 08:17 Resp 16 03/03/25 08:05 BP 123/75 03/03/25 08:00 Pulse Ox 95 03/03/25 08:05 O2 Del Method Nasal Cannula 03/03/25 08:05 O2 Flow Rate 4 03/03/25 08:05 03/02/25 03/03/25 03/03/25 22:59 06:59 14:59 Intake Total 1020 / 1564 0 / 1564 240 / 240 Output Total 2559 / 2559 0 / 2559 Balance -1539 / -995 0 / -995 240 / 240 Weight last 48 hrs Weight 130 kg Weight 125.736 kg Physical Exam Narrative: awake, alert, interactive, sitting up in bed, short of breath Vital signs noted, still requiring oxygen. HEENT normocephalic/atraumatic. Neck is supple. Lungs -dull bases bilaterally Heart: Regular rhythm, positive systolic murmur positive S1-S2. Abdomen soft positive bowel sounds. Extremities- + b/l lower extremity edema. Improving purple/red color on legs. Neuro - mental status normal, a,a, o x 3, FROM x4 Poor distal pulses Data 03/03/25 04:25 03/03/25 04:25 A&P Assessment and plan (1) ESRD (end stage renal disease): 79-year-old man 1. ESRD -as an outpatient the patient only dialyzes 3 times a week. The patient was not able to tolerate significant fluid removal on dialysis yesterday -will give a day off of dialysis -repeat HD tomorrow -as outpt, would plan for dialysis 4 x/ week. 2. Leg edema and wounds. Patient is no longer on antibiotics care as per medical team 3. cortisol of 14.5 will do a cosyntropin stim test 4. Permanent pacemaker for sick sinus syndrome/A-fib 5. chronic HFrEF- requires midodrine for dialysis. no pericardial effusion on November 2024 echo 6. Monitor abdominal exam with nausea and vomiting meds reviewed tsh 2.8 - pth 297- okay for ESRD. can give zemplar w/ HD discussed w/ pts, Dr Colindres, and ICU staff The patient was seen and examined with the aid of a nurse using audiovisual equipment. The patient consented to hemodialysis and to telehealth. Plan See above. PDMP PDMP Reviewed: Not Reviewed Attestations Medical Necessity Statement*: esrd, hypotension, volume overload Time Spent in Patient Care: 16 - 35 minutes (>than 50% of time spent in counselling and/or direct pt care on unit). Coding Level of Care Code Acute Code for Chg Fwd Diagnoses ESRD (end stage renal disease) N18.6
[2025-03-03] MEDS: cosyntropin 0.25 mg SDV IVP (11:00)
[2025-03-03 11:17] LABS: Glucose Point of Care 138 mg/dL (70-110)
[2025-03-03 11:27] LABS: Cosyntropin Baseline 11.75 mcg/dL
[2025-03-03 12:44] LABS: Cosyntropin 30 Minute 20.16 mcg/dL
--- NOTE | 2025-03-03 15:43 | USR_ITS ---
PROCEDURE INFORMATION: Exam: US Abdomen, Limited; Right Upper Quadrant Exam date and time: 03/03/2025 6:18 AM Age: 79 years old Clinical indication: Abdominal pain; Additional info: Ruq pain, npo at midnight and will scan gb in am. CR TECHNIQUE: Imaging protocol: Real time ultrasound of the abdomen with image documentation. Limited exam focused on the right upper quadrant. COMPARISON: US renal BI* [id number] 08/12/2021 4:20 PM FINDINGS: Liver: The liver has a lobular contour it is likely cirrhotic. Gallbladder: The gallbladder wall is thickened at 6 mm. This may be due to the ascites present, cholecystitis not excluded. Biliary ducts: Normal. No stones. No dilation. Pancreas: The pancreas is obscured. Right kidney: Normal. No mass. No hydronephrosis. Intraperitoneal space: Moderate ascites. Other findings: Multiple renal cysts. US/US gall bladder [id number] IMPRESSION: 1. Ascites, likely related to cirrhosis. 2. Apparent thickening of the gallbladder wall, this could represent inflammation or be related to the ascites present.
[2025-03-03 17:04] LABS: Glucose Point of Care 170 mg/dL (70-110)
--- NOTE | 2025-03-03 17:27 | PM.PN ---
Subjective Subjective: Patient was seen this morning, denies any fevers, no chills, no cough, no nausea, no vomiting, no abdominal pain does report lower extreme edema does report shortness of breath with minimal exertion Vitals/I&O/Wt Last Vital Signs Temp 98.0 F 03/03/25 16:00 Pulse 65 03/03/25 16:00 Resp 17 03/03/25 16:00 BP 115/65 03/03/25 16:00 Pulse Ox 96 03/03/25 16:00 O2 Del Method Nasal Cannula 03/03/25 16:00 O2 Flow Rate 4 03/03/25 16:00 03/03/25 03/03/25 03/03/25 06:59 14:59 22:59 Intake Total 0 / 1564 480 / 480 Output Total 0 / 2559 Balance 0 / -995 480 / 480 Weight last 48 hrs Weight 129 kg Weight 130 kg Weight 125.736 kg Physical Exam Const: COMMON NORMALS: no acute distress and patient oriented x3 Neck/C-Spine: COMMON NORMALS: no JVD Resp: COMMON NORMALS: normal respiratory effort, No retractions and No use of accessory muscles AUSCULTATION: crackles Cardio: COMMON NORMALS: no JVD, regular rate, regular rhythm, S1 normal heart sound present and S2 normal heart sound present RATE: regular rate RHYTHM: regular rhythm HEART SOUNDS: S1 normal heart sound present and S2 normal heart sound present GI: COMMON NORMALS: Normal to inspection, nondistended, normoactive bowel sounds present and non-tender Extremity: NARRATIVE EXTREMITY EXAM: 2+ pitting edema Neuro: COMMON NORMALS: patient oriented x3 Psych: COMMON NORMALS: mental status grossly normal Data 03/03/25 04:25 03/03/25 04:25 A&P Assessment and plan (1) Bradycardia: (2) Cellulitis: (3) Lower extremity edema: (4) ESRD (end stage renal disease): (5) Leg ulcer: (6) CHF exacerbation: (7) Abdominal pain: (8) Accelerated essential hypertension: (9) Ischemic cardiomyopathy: (10) Congestive heart failure: (11) Hypervolemia: Plan Systolic CHF exacerbation - Hypervolemia - BNP over 33,000 Cardiac echo November 2024 CONCLUSIONS Mild global hypokinesis. Estimated LVEF 45%. Normal RV size and function. Pacer wire in the RV cavity. Dilated right and left atria with mild mitral and tricuspid regurgitation. Mildly elevated RV and pulmonary pressures (40 mmHg). Small size pericardial effusion mainly around inferior and inferoposterior surface. Plan -Continue oxygen therapy - Continue IV Lasix - Continue inpatient dialysis - Placed on fluid restrictions - Monitor respiratory status closely History of CAD -History of high-grade complexes in the right coronary artery, mild disease in the left system -Underwent PCI in [place] History of restrictive lung disease - Chronically on 4 L, 6 L with exertion Type 2 diabetes mellitus Atrial fibrillation - Continue Eliquis Tachycardia/bradycardia -History of sick sinus/atrial fibrillation, pacemaker in place - Pacemaker interrogation, no acute findings - Cardiology consulted - Spoke to cardiology, will continue to monitor Cellulitis - Bilateral lower extremities - Zyvox has been stopped - Continue Zosyn - Venous ultrasound negative for DVT Bilateral arm edema, secondary fluid overload Stage renal disease on dialysis Leg ulcer, continue to monitor, wound care History of pacemaker placement Hyperkalemia - Monitor Gallbladder ultrasound due to right upper quadrant pain, nausea, vomiting US/US gall bladder [id number] IMPRESSION: 1. Ascites, likely related to cirrhosis. 2. Apparent thickening of the gallbladder wall, this could represent inflammation or be related to the ascites presen - Likely congestive hepatopathy from systolic CHF Left knee pain, CT scan left knee CT/CT knee LT wo con* [id number] IMPRESSION: 1. Diffuse osteopenia. 2. Moderate tricompartmental osteoarthritis. 3. Irregularity of the articular surface of the lateral tibial plateau with hypertrophic spurs projecting cephalad along the mid to lateral aspect. 4. No definite acute fracture detected. 5. Moderate-sized joint effusion and diffuse soft tissue edema. 6. If there is persistent clinical concern, MRI may be helpful for further evaluation. Plan for today, continue to monitor respiratory status closely PDMP PDMP Reviewed: Not Reviewed Attestations Medical Necessity Statement*: Patient requires hospitalization for systolic CHF, fluid overload, requiring dialysis Diagnoses Bradycardia R00.1 Cellulitis L03.90 Lower extremity edema R60.0 ESRD (end stage renal disease) N18.6 Leg ulcer L97.909 CHF exacerbation I50.9 Abdominal pain R10.9 Accelerated essential hypertension I10 Ischemic cardiomyopathy I25.5 Congestive heart failure, unspecified HF chronicity, unspecified heart failure type I50.9 Heart failure chronicity: unspecified Heart failure type: unspecified Hypervolemia E87.70
[2025-03-03] MEDS: insulin lispro 100 unit/1 mL SUBCUT ×2 (17:32→20:58)
[2025-03-03] MEDS: atorvastatin 40 mg Tablet 80 MG PO (17:33)
[2025-03-03] MEDS: cetirizine 10 mg Tablet PO (17:33)
[2025-03-03] MEDS: nystatin powder 15 gm Btl 1 APPLIC TOPICAL (17:40)
[2025-03-03 21:00] LABS: Glucose Point of Care 158 mg/dL (70-110)
[2025-03-04] VITALS (22 sets, daily range): BP systolic 97–122; BP diastolic 54–68; PULSE 38–66; RESP 16–22; TEMP 36.5–37.1; O2SAT 87–100
[2025-03-04 04:21] LABS: Basophils # 0.1 10^3/uL (0.0-0.1); Basophils % 0.9 %; Eosinophils # 0.1 10^3/uL (0.0-0.8); Eosinophils % 1.6 %; Hematocrit 32.6 % (37-53); Lymphocytes # 0.5 10^3/uL (0.8-4.8); Mean Corpuscular HGB Conc 31.3 g/dL (30-55); Mean Corpuscular Hemoglobin 31.3 pg (27-33); Mean Platelet Volume 10.9 fL (7.4-10.4); Monocytes # 0.8 10^3/uL (0.2-0.9); Monocytes % 10.4 %; Neutrophils # 6.34 10^3/uL (1.8-7.7); Neutrophils % 80.5 %; Nucleated Red Blood Cells % 0 %; Platelet Count 170 10^3/cmm (157-399); Red Blood Count 3.26 10^6/uL (3.85-5.65); Red Cell Distribution Width 17.7 % (12.1-15.1); White Blood Count 7.88 10^3/uL (3.29-11.43)
[2025-03-04 04:50] LABS: Alanine Aminotransferase 10 U/L (0-41); Albumin Level 3.3 g/dL (3.5-5.2); Alkaline Phosphatase 89 U/L (40-130); Anion Gap 19.9 (5-19); Aspartate Amino Transferase 10 U/L (0-40); Blood Urea Nitrogen 23 mg/dL (8-23); Calcium 9.2 mg/dL (8.5-10.5); Carbon Dioxide 25 mmol/L (22-29); Chloride 97 mmol/L (98-107); Globulin 4.1 g/dL (1.3-4.6); Glucose 113 mg/dL (65-115); Magnesium 1.8 mg/dL (1.7-2.3); Osmolality Calculated 288 mOsm/kg (285-295); Phosphorus 4.4 mg/dL (2.5-4.5); Potassium 4.9 mmol/L (3.5-5.1); Sodium 137 mmol/L (136-145); Total Bilirubin 0.7 mg/dL (0.15-1.2); Total Protein 7.4 g/dL (6.6-8.7)
[2025-03-04 05:10] LABS: NT Pro B Type Natriuretic Pept 31591 pg/mL (0-450)
[2025-03-04] MEDS: roflumilast 500 mcg Tablet PO (05:18)
[2025-03-04] MEDS: citalopram 20 mg Tablet 10 MG PO (05:18)
[2025-03-04] MEDS: insulin glargine 100 units/1 mL 35 UNIT SUBCUT (05:19)
[2025-03-04] MEDS: piperacillin-tazobactam 3.375 GM in sodium chloride 0.9% (plus) 50 ML IV (06:08)
[2025-03-04] MEDS: budesonide 0.5 mg/2 mL Neb 0.25 MG INHALATION (07:39)
[2025-03-04] MEDS: ipratropium-albuterol 3 mL Neb INHALATION ×2 (07:39→13:23)
[2025-03-04 07:40] LABS: Glucose Point of Care 110 mg/dL (70-110)
[2025-03-04] MEDS: sevelamer 800 mg Tablet 2400 MG PO (08:07)
[2025-03-04] MEDS: docusate sodium 100 mg Capsule 200 MG PO (08:07)
[2025-03-04] MEDS: apixaban 5 mg Tablet 2.5 MG PO (08:09)
[2025-03-04] MEDS: ticagrelor 90 mg Tablet PO (08:09)
[2025-03-04] MEDS: gabapentin 300 mg Capsule PO (08:09)
[2025-03-04] MEDS: pantoprazole DR 40 mg Tablet PO (08:09)
[2025-03-04] MEDS: FUROsemide 40 mg Tablet PO (08:09)
[2025-03-04] MEDS: isosorbide mononitrate ER 30 mg Tablet 15 MG PO (08:10)
[2025-03-04] MEDS: nystatin powder 15 gm Btl 1 APPLIC TOPICAL (08:11)
[2025-03-04] MEDS: fluticasone nasal spray 16gm Btl 1 SPRAY INTRANASAL (08:11)
--- NOTE | 2025-03-04 08:22 | PC.NURSE ---
Held Metoprolol due to patients request since its a dialysis day, patient doesnt want to make BP too low. Notified Dr. George.
[2025-03-04] MEDS: midodrine 5 mg TABLET PO (09:00)
[2025-03-04] MEDS: lidocaine-prilocaine cream 5 gm 1 APPLIC TOPICAL (09:12)
[2025-03-04] MEDS: albumin 12.5 GM/50 ML VIAL IV ×2 (09:20→10:13)
--- NOTE | 2025-03-04 09:47 | P.PN_ITS ---
Subjective 2 Subjective: Was seen examined. Patient still has edema and shortness of breath. Patient states this as outpatient he has 2 to 3 L removed on each dialysis session.He has some nausea. No vomiting or headaches. No chest pain. Medications: Reviewed: Yes Medication Review Details: Current Medications Acetaminophen (Acetaminophen 325 Mg Tablet) 650 mg PO Q6H PRN PRN Reason: Mild/Mod Pain Or Temp >/= 101 Albuterol/Ipratropium (Ipratropium-Albuterol 3 Ml Neb) 3 ml INHALATION Q6H.RESP [facility] Last Admin: 03/04/25 07:39 Dose: 3 ml Albuterol/Ipratropium (Ipratropium-Albuterol 3 Ml Neb) 3 ml INHALATION Q4H PRN PRN Reason: SHORTNESS OF BREATH Allopurinol (Allopurinol 100 Mg Tablet) 100 mg PO DAILY PRN PRN Reason: Gout Apixaban (Apixaban 5 Mg Tablet) 2.5 mg PO BID [facility] Last Admin: 03/04/25 08:09 Dose: 2.5 mg Atorvastatin Calcium (Atorvastatin 40 Mg Tablet) 80 mg PO DAILY@1800 [facility] Last Admin: 03/03/25 17:33 Dose: 80 mg Budesonide (Budesonide 0.5 Mg/2 Ml Neb) 0.25 mg INHALATION BID.RESPIRATORY [facility] Last Admin: 03/04/25 07:39 Dose: 0.25 mg Cetirizine HCl (Cetirizine 10 Mg Tablet) 10 mg PO DAILY@18 [facility] Last Admin: 03/03/25 17:33 Dose: 10 mg Citalopram Hydrobromide (Citalopram 20 Mg Tablet) 10 mg PO QAM [facility] Last Admin: 03/04/25 05:18 Dose: 10 mg Cyclobenzaprine HCl (Cyclobenzaprine 10 Mg Tablet) 10 mg PO TID PRN PRN Reason: Muscle Spasm Docusate Sodium (Docusate Sodium 100 Mg Capsule) 200 mg PO BID@09,18 [facility] Last Admin: 03/04/25 08:07 Dose: 200 mg Fluticasone Propionate (Fluticasone Nasal [place] 16gm Btl) 1 spray INTRANASAL DAILY [facility] Last Admin: 03/04/25 08:11 Dose: 1 spray Furosemide (Furosemide 40 Mg Tablet) 40 mg PO BID [facility] Last Admin: 03/04/25 08:09 Dose: 40 mg Gabapentin (Gabapentin 300 Mg Capsule) 300 mg PO BID@18 [facility] Last Admin: 03/04/25 08:09 Dose: 300 mg Glucagon (Glucagon 1 Mg/Ml Kit 1 Ml) 1 mg IM ONCE PRN; Protocol PRN Reason: Adult Acute Hypoglycemia Nursing Prot. Guaifenesin (Guaifenesin 100 Mg/5 Ml Udc 10 Ml) 200 mg PO Q4H PRN PRN Reason: COUGH Dextrose (D5w) 500 mls @ 0 mls/hr IV ONCE PRN; Protocol PRN Reason: Adult Acute Hypoglycemia Prot Dextrose (D10w) 125 mls @ 750 mls/hr IV PRN PRN; Protocol PRN Reason: Adult Acute Hypoglycemia Nursing Protocol Dextrose (D10w) 250 mls @ 1,000 mls/hr IV PRN PRN; Protocol PRN Reason: Adult Acute Hypoglycemia Nursing Protocol Piperacillin Sod/Tazobactam (Sod 3.375 gm/ Sodium Chloride) 50 mls @ 12.5 mls/hr IV Q12H [facility]; Protocol Last Admin: 03/04/25 06:08 Dose: 12.5 mls/hr Albumin Human (Albumin) 12.5 gm in 50 mls @ 60 mls/hr IV PRN PRN PRN Reason: Hypotension and/or symptomatic Last Infusion: 03/02/25 14:39 Dose: Infused Insulin Glargine (Insulin Glargine 100 Units/1 Ml) 35 unit SUBCUT QAM [facility] Last Admin: 03/04/25 05:19 Dose: 35 unit Insulin Human Lispro (Insulin Lispro 100 Unit/1 Ml) 0 unit SUBCUT WM&BEDTIME [facility]; Protocol Last Admin: 03/04/25 07:37 Dose: Not Given Isosorbide Mononitrate (Isosorbide Mononitrate Er 30 Mg Tablet) 15 mg PO BID [facility] Last Admin: 03/04/25 08:10 Dose: 15 mg Lidocaine/Prilocaine (Lidocaine-Prilocaine Cream 5 Gm) 1 applic TOPICAL QID [facility] Last Admin: 03/04/25 09:12 Dose: 1 applic Metoprolol Succinate (Metoprolol Succinate Er (24 Hr) 25 Mg Tablet) 12.5 mg PO DAILY [facility] Last Admin: 03/04/25 08:10 Dose: Not Given Midodrine (Midodrine 5 Mg Tablet) 5 mg PO DAILY PRN PRN Reason: SYSTOLIC BLOOD PRESSURE Last Admin: 03/02/25 11:23 Dose: 5 mg Nitroglycerin (Nitroglycerin 0.4 Mg Sublingual Tablet) 0.4 mg SUBLINGUAL Q5M PRN PRN Reason: CHEST PAIN Nystatin (Nystatin Powder 15 Gm Btl) 1 applic TOPICAL BID [facility] Last Admin: 03/04/25 08:11 Dose: 1 applic Ondansetron HCl (Ondansetron 2 Mg/Ml Sdv 2 Ml) 4 mg IVP Q8H PRN PRN Reason: vomiting, or N/V if npo Last Admin: 03/02/25 08:33 Dose: 4 mg Oxycodone/Acetaminophen (Oxycodone-Apap 5-325 Mg Tablet) 0.5 - 1 tab PO Q4H PRN PRN Reason: PAIN Last Admin: 03/03/25 20:48 Dose: 1 tab Pantoprazole Sodium (Pantoprazole Dr 40 Mg Tablet) 40 mg PO BID [facility] Last Admin: 03/04/25 08:09 Dose: 40 mg Polyethylene Glycol (Polyethylene Glycol 3350 Pkt 17 Gm) 4 gm PO DAILY PRN PRN Reason: Constipation Roflumilast (Roflumilast 500 Mcg Tablet) 500 mcg PO QAM [facility] Last Admin: 03/04/25 05:18 Dose: 500 mcg Sevelamer Carbonate (Sevelamer 800 Mg Tablet) 2,400 mg PO TID@,, [facility] Last Admin: 03/04/25 08:07 Dose: 2,400 mg Ticagrelor (Ticagrelor 90 Mg Tablet) 90 mg PO BID [facility] Last Admin: 03/04/25 08:09 Dose: 90 mg Vitals/I&O/Wt Last Vital Signs Temp 98.8 F 03/04/25 08:00 Pulse 62 03/04/25 08:00 Resp 17 03/04/25 08:00 BP 119/65 03/04/25 08:00 Pulse Ox 96 03/04/25 08:00 O2 Del Method Nasal Cannula 03/04/25 07:39 O2 Flow Rate 4 03/04/25 07:39 03/03/25 03/04/25 03/04/25 22:59 06:59 14:59 Intake Total 530 / 1010 290 / 1300 240 / 240 Balance 530 / 1010 290 / 1300 240 / 240 Weight last 48 hrs Weight 130 kg Weight 129 kg Weight 130 kg Physical Exam 2 Narrative: awake, alert, interactive, lying down in bed, comfortable on 4 l nc 02 Vital signs noted HEENT normocephalic/atraumatic. Neck is supple. Lungs -dull bases bilaterally Heart: Regular rhythm, positive systolic murmur positive S1-S2. Abdomen soft positive bowel sounds. Extremities- + b/l lower extremity edema. Improving purple/red color on legs. Neuro - mental status normal, a,a, o x 3, FROM x4 Poor distal pulses Data 03/04/25 03:51 03/04/25 03:51 Micro: Microbiology 02/27/25 06:58 Blood Culture - Final Blood NO GROWTH AFTER 5 DAYS 02/27/25 06:54 Blood Culture - Final Blood NO GROWTH AFTER 5 DAYS A&P Assessment and plan (1) ESRD (end stage renal disease): 79-year-old man 1. ESRD -as an outpatient the patient only dialyzes 3 times a week. The patient was not able to tolerate significant fluid removal on dialysis yesterday -we are attempting hemodialysis for 3 and half hours attempt to remove 2 L as tolerated. Allow systolic blood pressure to go down to 90. -as outpt, would plan for dialysis 4 x/ week. 2. Leg edema and wounds. Patient is no longer on antibiotics care as per medical team 3. cortisol of 11 louise to 21 w/ cosyntropin 4. Permanent pacemaker for sick sinus syndrome/A-fib 5. chronic HFrEF- requires midodrine for dialysis. no pericardial effusion on November 2024 echo 6. Monitor abdominal exam with nausea and vomiting meds reviewed tsh 2.8 - pth 297- okay for ESRD. can give zemplar w/ HD lower renvela dose discussed w/ pt and ICU staff The patient was seen and examined with the aid of a nurse using audiovisual equipment. The patient consented to hemodialysis and to telehealth. Plan See above. PDMP PDMP Reviewed: Not Reviewed Attestations 2 Medical Necessity Statement*: volume overload, esrd, HFrEF Time Spent in Patient Care: 16 - 35 minutes (>than 50% of time sp ent in counselling and/or direct pt care on unit) . Coding Level of Care Code Acute Code for Chg Fwd Diagnoses ESRD (end stage renal disease) N18.6
[2025-03-04 11:06] LABS: Glucose Point of Care 98 mg/dL (70-110)
--- NOTE | 2025-03-04 11:32 | P.PN_ITS ---
<Statement entered by Jairo Johnson M.D - 03/11/25 13:51> Patient was cared for in conjunction with an advanced practice practitioner.? I reviewed the chart and all pertinent data including imaging, telemetry, and laboratory results.? I discussed the patient in detail with the advanced practice practitioner.? Please see?their note for progress note, testing results and agreed upon plan of care for the patient. Subjective 2 Subjective: Patient still has heart rate going in the 30s. He states he is symptomatic with this with blurred vision. Pacemaker has been interrogated. Otherwise he appears at baseline. Vitals/I&O/Wt Last Vital Signs Temp 97.7 F 03/04/25 09:51 Pulse 55 L 03/04/25 09:51 Resp 22 H 03/04/25 09:51 BP 109/57 03/04/25 09:51 Pulse Ox 96 03/04/25 08:00 O2 Del Method Nasal Cannula 03/04/25 07:39 O2 Flow Rate 4 03/04/25 07:39 03/03/25 03/04/25 03/04/25 22:59 06:59 14:59 Intake Total 530 / 1010 290 / 1300 390 / 390 Balance 530 / 1010 290 / 1300 390 / 390 Weight last 48 hrs Weight 286 lb 9.615 oz Weight 284 lb 6.341 oz Weight 286 lb 9.615 oz Physical Exam 2 Narrative: General: No apparent distress, healthy appearing HENMT: normoceophalic Muskuloskeletal: Full ROM Respiratory: Normal respiratory effort, clear to auscultation bilaterally throughout all lung leyva, no use of accessory muscles Cardio: No JVD, irregularly irregular rate and rhythm, S1 S2 normal, no murmurs, peripheral pulses 2+ radial palpated bilaterally Extremities: Full ROM, normal, normal capillary refill, no cyanosis, 1+ nonpiting edema bilateral lower extremities Neuro: Alert and oriented x4, no focal motor deficits Psych: Affect normal, denies suicidal ideation, mental status grossly normal Skin: Hemosiderin staining bilateral lower extremities, right anterior rhodes has an ulcer type area that is not actively draining no redness to the area Data 03/04/25 03:51 03/04/25 03:51 Micro: Microbiology 02/27/25 06:58 Blood Culture - Final Blood NO GROWTH AFTER 5 DAYS 06/18/25 06:54 Blood Culture - Final Blood NO GROWTH AFTER 5 DAYS A&P Assessment and plan (1) Accelerated essential hypertension: (2) Pacemaker: (3) History of heart attack: (4) Heart failure: (5) Chronic anticoagulation: Plan At this time patient is having symptoms with bradycardia. It is possible that patient is not sensing and capturing correctly. This was discussed with the pacemaker rep again who stated the pacemaker will automatically increase the sensitivity if needed which is already done. Due to the patient being symptomatic with the lower heart rates, we recommend discontinuing metoprolol completely. If he does ok after 24 hours, can discharge with an event monitor. PDMP PDMP Reviewed: Not Reviewed Attestations 2 Medical Necessity Statement*: Deferred to primary Coding Level of Care Code Acute Code for g Fwd Diagnoses Accelerated essential hypertension I10 Pacemaker Z95.0 History of heart attack I25.2 Acute on chronic systolic heart failure I50.23 Heart failure chronicity: acute on chronic Heart failure type: systolic Chronic anticoagulation Z79.01
[2025-03-04] MEDS: sevelamer 800 mg Tablet 1600 MG PO (12:42)
--- NOTE | 2025-03-04 13:38 | PC.NURSE ---
Patient received DC orders. All IVs removed. Patient getting dressed. Will exit via w/c to main entrance. All discharge instructions explained to family and patient. Both verbalized understanding. No new prescriptions.
--- NOTE | 2025-03-04 14:11 | PC.NURSE ---
Patient DCd at 1406.
--- NOTE | 2025-03-04 14:15 | PC.SOCIAL ---
IMM Updated Updated pt & on IMM. No questions voiced. Provided pt a copy. Initialed, dated, & timed copy in chart.
--- NOTE | 2025-03-17 12:47 | P.DS_ITS ---
Discharge Providers Date of Admission: 02/28/25 10:00 Date of Discharge: March 17, 2025 Attending Provider at Admission: Karlos Crespo Attending Provider at Discharge: Telly George MD Primary Care Provider: Lynnette Emerson APRN Diagnoses at Discharge Discharge Diagnosis (1) Accelerated essential hypertension: Status: Acute (2) Pacemaker: Status: Acute (3) History of heart attack: Status: Acute (4) Heart failure: Status: Acute Qualifiers: Heart failure chronicity: acute on chronic Heart failure type: systolic Qualified Code(s): I50.23 - Acute on chronic systolic (congestive) heart failure (5) Chronic anticoagulation: Status: Acute Reason for Visit Reason for Visit: L leg pain, swelling, redness Hospital Course Hospital Course This is a 80-year-old male with past medical history of end-stage renal disease on dialysis, CHF, CAD, atrial fibrillation, restrictive lung disease, struct of sleep apnea, pacemaker placement, anemia, hyperlipidemia, hypertension and diabetes who presents to [facility] due to lower extremity edema Patient was admitted to [facility] for acute systolic CHF ex acerbation Systolic CHF exacerbation - Hypervolemia - BNP over 33,000 Cardiac echo November 2024 CONCLUSIONS Mild global hypokinesis. Estimated LVEF 45%. Normal RV size and function. Pacer wire in the RV cavity. Dilated right and left atria with mild mitral and tricuspid regurgitation. Mildly elevated RV and pulmonary pressures (40 mmHg). Small size pericardial effusion mainly around inferior and inferoposterior surface. Nephrology was consulted, cardiology consulted -Continue oxygen therapy - Continue IV Lasix - Continue inpatient dialysis - Placed on fluid restrictions - Monitor respiratory status closely - Patient overall clinically improved with inpatient dialysis, euvolemic on discharge, will be discharged with a close follow-up with cardiology as outpatient History of CAD -History of high-grade complexes in the right coronary artery, mild disease in the left system -Underwent PCI in [place] - No chest pain complaint during hospitalization History of restrictive lung disease - Chronically on 4 L, 6 L with exertion Type 2 diabetes mellitus Atrial fibrillation - Continue Eliquis Tachycardia/bradycardia -History of sick sinus/atrial fibrillation, pacemaker in place - Pacemaker interrogation, no acute findings - Cardiology consulted, monitored on inpatient with telemetry monitoring -Cardiology discussed case with pacemaker representatives who advised us that the pacemaker will automatically increase his sensitivity if needed -Metoprolol is discontinued -Discharge with event monitor in place - Spoke to cardiology, discharged with outpatient follow-up with cardiology Cellulitis - Bilateral lower extremities - Managed with IV Zyvox, IV Zosyn - Venous ultrasound negative for DVT - Overall clinically improved Bilateral arm edema, secondary fluid overload, resolved Stage renal disease on dialysis Leg ulcer, continue to monitor, wound care, discharged with wound care as outpatient History of pacemaker placement Gallbladder ultrasound due to right upper quadrant pain, nausea, vomiting US/US gall bladder [id number] IMPRESSION: 1. Ascites, likely related to cirrhosis. 2. Apparent thickening of the gallbladder wall, this could represent inflammation or be related to the ascites presen - Likely congestive hepatopathy from systolic CHF Left knee pain, CT scan left knee CT/CT knee LT wo con* [id number] IMPRESSION: 1. Diffuse osteopenia. 2. Moderate tricompartmental osteoarthritis. 3. Irregularity of the articular surface of the lateral tibial plateau with hypertrophic spurs projecting cephalad along the mid to lateral aspect. 4. No definite acute fracture detected. 5. Moderate-sized joint effusion and diffuse soft tissue edema. 6. If there is persistent clinical concern, MRI may be helpful for further evaluation. Physical Exam Const: COMMON NORMALS: no acute distress and patient oriented x3 Resp: COMMON NORMALS: normal respiratory effort, No retractions, No use of accessory muscles and clear to auscultation bilaterally AUSCULTATION: clear to auscultation bilaterally Cardio: COMMON NORMALS: regular rate, regular rhythm, S1 normal heart sound present and S2 normal heart sound present RATE: regular rate RHYTHM: regular rhythm HEART SOUNDS: S1 normal heart sound present and S2 normal heart sound present GI: COMMON NORMALS: Normal to inspection, nondistended, normoactive bowel sounds present, Soft to palpation and non-tender PALPATION: Yes Soft to palpation Extremity: COMMON NORMALS: no pedal edema Neuro: COMMON NORMALS: patient oriented x3 Psych: COMMON NORMALS: mental status grossly normal Discharge Data Studies Completed and Pending Completed Studies During Hospitalization Category Date Time Status CT knee LT wo con* [id number] Routine Cat Scan 03/02/25 15:42 Completed XR chest 1V portable [id number] Routine Exams 03/03/25 07:00 Completed XR chest 1V portable [id number] Stat Exams 02/27/25 06:40 Completed XR knee LT 1-2V [id number] Routine Exams 03/02/25 10:54 Completed CV. echo complete* [id number] Routine Ultrasound 03/03/25 08:55 Completed US gall bladder [id number] Routine Ultrasound 03/03/25 15:43 Completed US venous duplex lower extremity bilat [CV venous Ultrasound 02/27/25 06:43 [place] [id number]] Stat Radiology Impressions Knee X-Ray 03/02/25 10:54 IMPRESSION: 1. Diffuse osteopenia. 2. Moderate tricompartmental osteoarthritis. 3. Subtle lucency in the lateral tibial plateau which could represent a lateral tibial plateau fracture. If clinically indicated, CT or MRI may be helpful for further evaluation. Knee CT 03/02/25 15:42 IMPRESSION: 1. Diffuse osteopenia. 2. Moderate tricompartmental osteoarthritis. 3. Irregularity of the articular surface of the lateral tibial plateau with hypertrophic spurs projecting cephalad along the mid to lateral aspect. 4. No definite acute fracture detected. 5. Moderate-sized joint effusion and diffuse soft tissue edema. 6. If there is persistent clinical concern, MRI may be helpful for further evaluation. Chest X-Ray 03/03/25 07:00 IMPRESSION: Slightly improved aeration at the right lung base. Otherwise no change. Gallbladder Ultrasound 03/03/25 15:43 IMPRESSION: 1. Ascites, likely related to cirrhosis. 2. Apparent thickening of the gallbladder wall, this could represent inflammation or be related to the ascites present. Laboratory Results WBC 7.88 10^3/uL (3.29-11.43) 03/04/25 03:51 RBC 3.26 10^6/uL (3.85-5.65) L 03/04/25 03:51 Hgb 10.20 g/dL (11.27-16.99) L 03/04/25 03:51 Hct 32.6 % (37-53) L 03/04/25 03:51 MCV 100.0 fl (82-101) 03/04/25 03:51 MCH 31.3 pg (27-33) 03/04/25 03:51 MCHC 31.3 g/dL (30-55) 03/04/25 03:51 RDW 17.7 % (12.1-15.1) H 03/04/25 03:51 Plt Count 170 10^3/cmm (157-399) 03/04/25 03:51 MPV 10.9 fL (7.4-10.4) H 03/04/25 03:51 Neut % (Auto) 80.5 % 03/04/25 03:51 Lymph % (Auto) 6.0 % 03/04/25 03:51 Patrick % (Auto) 10.4 % 03/04/25 03:51 Eos % (Auto) 1.6 % 03/04/25 03:51 Baso % (Auto) 0.9 % 03/04/25 03:51 Neut # (Auto) 6.34 10^3/uL (1.8-7.7) 03/04/25 03:51 Lymph # (Auto) 0.5 10^3/uL (0.8-4.8) L 03/04/25 03:51 Patrick # (Auto) 0.8 10^3/uL (0.2-0.9) 03/04/25 03:51 Eos # (Auto) 0.1 10^3/uL (0.0-0.8) 03/04/25 03:51 Baso # (Auto) 0.1 10^3/uL (0.0-0.1) 03/04/25 03:51 Nucleated RBC % (auto) 0 % 03/04/25 03:51 Nucleated RBCs # 0.0 /100WBC 03/04/25 03:51 Specimen Type Arterial 02/27/25 11:46 Sample Site Radial, left 02/27/25 11:46 ABG pH 7.43 (7.35-7.45) 02/27/25 11:46 ABG pCO2 48.3 mmHg (35-45) H 02/27/25 11:46 ABG pO2 81.8 mmHg (80.0-100.0) 02/27/25 11:46 ABG HCO3 31.8 mmol/L (22-26) H 02/27/25 11:46 ABG O2 Saturation 96.0 02/27/25 11:46 ABG Base Excess 6.4 mmol/L (-2.0-2.0) H 02/27/25 11:46 Carlito Test Pos 02/27/25 11:46 A-a O2 Gradient 1.0 mmHg (5-10) L 02/27/25 11:46 Hematocrit 34.2 % (42-52) L 02/27/25 11:46 Hgb O2 Saturation 93.5 % (95-100) L 02/27/25 11:46 Carboxyhemoglobin 1.6 %THgb (0.4-20.1) 02/27/25 11:46 Methemoglobin 1.0 % (0.4-1.5) 02/27/25 11:46 Total Hemoglobin 11.2 g/dL (14-18) L 02/27/25 11:46 Sodium 138.0 mmol/L (131-143) 02/27/25 11:46 Potassium 4.5 mmol/L (3.5-5.0) 02/27/25 11:46 Glucose 126.0 mg/dL (70-115) H 02/27/25 11:46 Ionized Calcium 1.1 mmol/L (1.1-1.4) 02/27/25 11:46 O2 Delivery Device Nc 02/27/25 11:46 O2 Liters/Min 4.0 % 02/27/25 11:46 Fire Prevention Inspector ID [place] 02/27/25 11:46 Sodium 137 mmol/L (136-145) 03/04/25 03:51 Potassium 4.9 mmol/L (3.5-5.1) 03/04/25 03:51 Chloride 97 mmol/L (98-107) L 03/04/25 03:51 Carbon Dioxide 25 mmol/L (22-29) 03/04/25 03:51 Anion Gap 19.9 (5-19) H 03/04/25 03:51 BUN 23 mg/dL (8-23) 03/04/25 03:51 Creatinine 4.1 mg/dL (0.7-1.2) H 03/04/25 03:51 GFR Calculation Not Reportable 03/04/25 03:51 Glucose 113 mg/dL (65-115) 03/04/25 03:51 POC Glucose 98 mg/dL (70-110) 03/04/25 11:04 Calculated Osmolality 288 mOsm/kg (285-295) 03/04/25 03:51 Lactic Acid 2.8 mmol/L (0.5-2.2) H 02/27/25 06:50 Lactic Acid (Sepsis) 2.0 mmol/L (0.5-2.2) 02/27/25 09:10 Calcium 9.2 mg/dL (8.5-10.5) 03/04/25 03:51 Phosphorus 4.4 mg/dL (2.5-4.5) 03/04/25 03:51 Magnesium 1.8 mg/dL (1.7-2.3) 03/04/25 03:51 Total Bilirubin 0.7 mg/dL (0.15-1.2) 03/04/25 03:51 GGT 72 U/L (8-61) H 03/02/25 04:47 AST 10 U/L (0-40) 03/04/25 03:51 ALT 10 U/L (0-41) 03/04/25 03:51 Alkaline Phosphatase 89 U/L (40-130) 03/04/25 03:51 NT-Pro-B Natriuret Pep 41148 pg/mL (0-450) H 03/04/25 03:51 Total Protein 7.4 g/dL (6.6-8.7) 03/04/25 03:51 Albumin 3.3 g/dL (3.5-5.2) L 03/04/25 03:51 Globulin 4.1 g/dL (1.3-4.6) 03/04/25 03:51 Lipase 42 U/L (13-60) 03/02/25 04:47 25-OH Vitamin D Total 48 ng/mL (30-100) 03/01/25 03:06 TSH 2.78 uIU/mL (0.27-4.20) 02/27/25 06:50 PTH Intact 296.8 pg/mL (15-65) H 03/01/25 03:06 Calcium (PTH Intact) 8.5 mg/dL (8.5-10.5) 03/01/25 03:06 Random Cortisol Cancelled 03/03/25 10:43 Cortisol Response 03/03/25 10:43 Nasal MRSA (PCR) Not detected (Negative) 02/28/25 21:00 Hep Bs Antigen Non-reactive (Nonreactive) 02/27/25 12:14 Hep Bs Antibody 35.0 (11.5-1000) 02/27/25 12:14 Hepatitis C Antibody Non-reactive (Nonreactive) 02/27/25 12:14 Vitals Last Vital Signs Temp 97.7 F 03/04/25 17:04 Pulse 38 L 03/04/25 17:04 Resp 20 H 03/04/25 17:04 BP 117/63 03/04/25 17:04 Pulse Ox 100 03/04/25 13:29 O2 Del Method Nasal Cannula 03/04/25 13:20 O2 Flow Rate 4 03/04/25 13:20 Discharge Plan Discharge Patient Disposition: Home Condition: Stable Prescriptions: Continued atorvastatin 80 mg tablet 80 mg PO DAILY@1800 gabapentin 300 mg capsule 300 mg PO BID@ sevelamer carbonate [Renvela] 800 mg tablet 2,400 mg PO TID@,, Rx Instructions: WITH MEALS albuterol sulfate 90 mcg/actuation HFA aerosol inhaler 2 puff inhalation Q6H PRN (Reason: shortness of breath or wheezing) 30 Days Qty: 8.5 3RF cholecalciferol (vitamin D3) 50 mcg (2,000 unit) capsule 50 mcg PO QAM Daliresp 250 mcg tablet 500 mcg PO QAM pantoprazole 40 mg tablet,delayed release (DR/EC) 40 mg PO BID apixaban 2.5 mg tablet 2.5 mg PO BID Qty: 180 5RF isosorbide mononitrate 30 mg tablet extended release 24 hr 15 mg PO BID Qty: 90 3RF nitroglycerin [Nitrostat] 0.4 mg tablet, sublingual 0.4 mg SUBLINGUAL Q5M PRN (Reason: Chest Pain) Qty: 25 4RF Rx Instructions: do not exceed 3 doses per episode triamcinolone acetonide 0.1 % cream 1 applic topical BID Qty: 453.6 2RF diclofenac sodium [Voltaren Arthritis Pain] 1 % gel 2 g topical QID 30 Days Qty: 100 8RF Rx Instructions: apply to single elbow, wrist or hand; for hand includes palm/fingers/back of hand citalopram 20 mg tablet 10 mg PO QAM midodrine 2.5 mg tablet 2.5 mg PO BID PRN (Reason: low blood pressure) Qty: 60 0RF Rx Instructions: do not give last dose of day after 6PM or within 4 hrs of bedtime Brilinta 90 mg tablet 90 mg PO BID Qty: 180 3RF guaifenesin 100 mg/5 mL liquid 200 mg PO Q4H PRN (Reason: cough) Qty: 473 6RF allopurinol 100 mg Tablet 100 mg PO DAILY PRN (Reason: Gout) docusate sodium 100 mg Capsule 200 mg PO BID@,18 insulin glargine [Lantus U-100 Insulin] 100 unit/mL Solution 35 unit SUBCUT QAM furosemide 40 mg tablet 40 mg PO QAM cyclobenzaprine 10 mg Tablet 10 mg PO TID PRN (Reason: Muscle Spasm) polyethylene glycol 3350 17 gram/dose Powder 4 g PO DAILY PRN (Reason: Constipation) omega-3 fatty acids 1,000 mg Capsule 1,000 mg PO BID@, cetirizine [Zyrtec] 10 mg Tablet 10 mg PO DAILY@ RenaPlex 800 mcg- 12.5 mg Tablet 1 tab PO QAM azelastine 137 mcg (0.1 %) [place],Non-Aerosol 1 spray INTRANASAL BID Rx Instructions: administer into each nostril fluticasone propion-salmeterol [Wixela Inhub] 100-50 mcg/dose blister with device 1 inh INHALATION BID fluticasone propionate [Flonase Allergy Relief] 50 mcg/actuation spray,suspension 1 spray INTRANASAL DAILY lidocaine-prilocaine 2.5-2.5 % Cream 1 applic topical QID oxycodone-acetaminophen 5-325 mg Tablet See Rx Instructions .ROUTE .COMPLEX PRN (Reason: Pain) Rx Instructions: tAKE 1/2 TO 1 TABLET EVERY 4-6 HOURS FOR PAIN, DO NOT EXCEED 3TABS DAILY ketoconazole 2 % Cream 1 applic TOPICAL BID testosterone cypionate 200 mg/mL Syringe 200 mg IM Q14D Nepro Carb Steady 0.08 gram-1.8 kcal/mL Liquid 1 ea PO DAILY Spiriva Respimat 2.5 mcg/actuation Mist 2 puff INHALATION DAILY Discontinued metoprolol succinate 25 mg tablet extended release 24 hr 12.5 mg PO DAILY Qty: 90 0RF Rx Instructions: Hold if blood pressure less than 110/60 spironolactone 25 mg tablet 25 mg PO DAILY@09 Qty: 90 1RF No Action (DME) Afflo Vest 5Hz-20Hz See Rx Instructions .Route .MEDSUPPLY Qty: 1 0RF Rx Instructions: AffloVest 5Hz-20Hz for 15-30 minutes, 2-3 times daily. (DME) Afflo Vest See Rx Instructions .Route .MEDSUPPLY Qty: 1 0RF Rx Instructions: 5Hz-20Hz for 15-30 minutes 2-3 times daily. (DME) Diabetic Shoes with 3 Custom Inserts See Rx Instructions .Route .MEDSUPPLY Qty: 1 0RF Rx Instructions: As directed made by the yady shaw Discharge Orders: Discharge Order (Routine); Ordered 03/04/25 Ordered By: Telly George Referrals: [facility] [place] - [place] [Outside] Lynnette Emerson APRN [Primary Care Provider, [facility]] - 03/12/25 9:30 am Discharge Diet: Cardiac Discharge Activity: Resume usual activity Patient Instructions: Heart Failure (DC), Heart Healthy Diet (DC), Stasis Dermatitis (DC), Bradycardia (DC), Cardiac Loop Recorder Insertion or Removal (GEN), Opioid Safety Discharge Attestations Time Spent in Discharge Care*: greater than 30 min Quality Metrics Clinical Quality Measures [ No reported AMI, CVA or VTE this stay] Coding Level of Care Code 41508 Total time (in minutes) for Discharge: 45 Diagnoses Accelerated essential hypertension I10 Pacemaker Z95.0 History of heart attack I25.2 Acute on chronic systolic heart failure I50.23 Heart failure chronicity: acute on chronic Heart failure type: systolic Chronic anticoagulation Z79.01
== END 2025-03-04 14:06 | disposition home or self-care (01) | DRG 291 ==
LOC: ER 06:43 → MEDSURG 10:45 → ER IP 13:56 → MEDSURG 02-28 05:13 → ICU 02-28 05:13
PROVIDERS: Internal Medicine Nephrology; Admitting Provider Internal Medicine; Emergency Provider Family Medicine; PCP Nurse Practitioner Family; Visit Provider Family Medicine
DX: I13.2 Hypertensive heart and chronic kidney disease with heart failure and with stage 5 chronic kidney disease, or end stage renal disease (principal); I50.23 Acute on chronic systolic (congestive) heart failure; N18.6 End stage renal disease; L03.116 Cellulitis of left lower limb; L03.115 Cellulitis of right lower limb; E11.22 Type 2 diabetes mellitus with diabetic chronic kidney disease; I25.2 Old myocardial infarction; I25.10 Atherosclerotic heart disease of native coronary artery without angina pectoris; G47.33 Obstructive sleep apnea (adult) (pediatric); D63.1 Anemia in chronic kidney disease; E78.5 Hyperlipidemia, unspecified; I49.5 Sick sinus syndrome; I49.3 Ventricular premature depolarization; I25.5 Ischemic cardiomyopathy; I48.91 Unspecified atrial fibrillation; E87.5 Hyperkalemia; J44.9 Chronic obstructive pulmonary disease, unspecified; Z95.0 Presence of cardiac pacemaker; Z99.2 Dependence on renal dialysis; Z99.81 Dependence on supplemental oxygen; Z79.01 Long term (current) use of anticoagulants; Z79.02 Long term (current) use of antithrombotics/antiplatelets; Z79.4 Long term (current) use of insulin; Z79.51 Long term (current) use of inhaled steroids; Z79.891 Long term (current) use of opiate analgesic
CPT/HCPCS: 36415; 36416; 36600; 71045; 73560; 73700; 76705; 80051; 80053; 82306; 82310; 82330; 82533; 82805; 82962; 82977; 83605; 83690; 83735; 83880; 83970; 84100; 84443; 85025; 86706; 86803; 87040; 87340; 90935; 93005; 93306; 93970; 94640; 94760; 96372; 96374; 96376; G0378; J0834; J1815; J2020; J2405; J2543; J7626; J9999; P9047; Q3014; Q5105

== ENCOUNTER → 2025-03-12 10:28 | Outpatient (BNVA) | payer OTHER, SELFPAY | PROVIDERS: PCP Family Medicine Geriatric Medicine; Visit Provider Podiatrist Foot & Ankle Surgery | DX: E11.42 Type 2 diabetes mellitus with diabetic polyneuropathy (principal); L60.3 Nail dystrophy; E11.8 Type 2 diabetes mellitus with unspecified complications; N18.6 End stage renal disease; Z99.2 Dependence on renal dialysis; M21.612 Bunion of left foot; Z79.4 Long term (current) use of insulin | CPT/HCPCS: 11721 ==

== ENCOUNTER → 2025-03-21 09:06 | Outpatient (BNVA) | payer OTHER, SELFPAY | PROVIDERS: PCP Family Medicine Geriatric Medicine; Visit Provider Thoracic Surgery (Cardiothoracic Vascular Surgery) | DX: I96 Gangrene, not elsewhere classified (principal); I87.2 Venous insufficiency (chronic) (peripheral); L97.811 Non-pressure chronic ulcer of other part of right lower leg limited to breakdown of skin | CPT/HCPCS: 97597; A6248 ==

== ENCOUNTER 2025-03-28 12:55 | Outpatient (CLI) | payer OTHER, SELFPAY ==
--- NOTE | 2025-03-28 14:00 | USR_ITS ---
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 . . TECHNIQUE: Imaging protocol: Right Real-time duplex scan of the arteries or arterial bypass grafts of the right lower extremity with 2-D sanchez scale, color Doppler flow and spectral waveform analysis. Images documented and saved. COMPARISON: US renal BI* [id number] 08/12/2021 4:20 PM FINDINGS: Right external iliac artery: Right common iliac artery: 101 cm/s, triphasic waveform. Right common femoral artery: 50 cm/s, triphasic waveform. Right superficial femoral artery: 64 cm/s, triphasic waveform Right popliteal artery: 30 cm/s, triphasic waveform. Right calf/foot arteries: Right posterior tibial: 33 cm/s, triphasic waveform. Right dorsalis pedis: 87 cm/s, biphasic waveform. No grayscale evidence of right lower extremity arterial stenosis. Soft tissues: No hematoma or [place]. US/[place] [id number] IMPRESSION: No sonographic evidence for right lower extremity artery stenosis.
== END 2025-03-28 12:56 | disposition home or self-care (01) ==
LOC: RAD 12:57
PROVIDERS: PCP Family Medicine Geriatric Medicine; Visit Provider Thoracic Surgery (Cardiothoracic Vascular Surgery)
DX: L97.811 Non-pressure chronic ulcer of other part of right lower leg limited to breakdown of skin (principal)
CPT/HCPCS: 93926; 97597

== ENCOUNTER 2025-03-29 13:02 | Emergency (ER) | payer OTHER, MEDICARE, SELFPAY ==
[2025-03-29] VITALS (31 sets, daily range): BP systolic 97–137; BP diastolic 56–89; PULSE 48–72; RESP 13–22; TEMP 36.1; O2SAT 89–99; BMI 39.4
--- OUTSIDE RECORDS SUMMARY | 2025-03-29 13:06 | XMS_ITS | Encounter Summary ---
Author Organization [facility], [facility] Address [address] [place] [address] Phone Care Team Providers Care Videotape Editor Name Role Phone Unavailable Primary Care Provider Kinzaabl e Encounter Details Date Type Department Care Team (Late st Contact Info) Description 03/27/2025 Orders Only [facility], [facility] [address] [place] [address] Magy Harrington MD [address] [place] [address] Social History Tobacco Use Types Packs/Day Years Used Date Smoking Tobacco: Never Assessed Sex and Gender Information Value Date Recorded Sex Assigned at Not on file Legal Sex Male 10:15 AM EDT Gender Identity Not on file Sexual Orientation Not on file documented as of this encounter Plan of Treatment Not on file documented as of this encounter Procedures Procedure Name Priority Date/Time Associated Diagnosis Comments HEMATOLOGY Routine 03/27/2025 documented in this encounter Results * (ABNORMAL) HEMATOLOGY (03/27/2025) Hemoglobin 10.6(L) 14.0 - 18.0 g/dL [facility] Hemoglobin x 3 31.8(L) 42.0 - 54.0 % [facility] 03/27/2025 03/28/2025 9:0 4 AM CDT Narrative [facility] - 03/28/2025 Unless otherwise specified, test(s) performed at: [facility], [address] [place], [place] [id number] SEAM STAY STITCHER: Anupam Vazquez M.D. For any questions, please call customer service at FREQUENCY:OTHER Resulting Agency Comment Specimen source: Blood us Magy Harrington MD LAB BLOOD ORDERABLES Final Re sult [facility] See order comments or contact performing lab Unknown, [place] documented in this encounter Visit Diagnoses Not on filedocumented in this encounter
--- OUTSIDE RECORDS SUMMARY | 2025-03-29 13:06 | XMS_ITS | Encounter Summary ---
Author Organization [facility] Address [address] [place] [address] Care Team Providers Care Commercial Account Manager Name Role Phone Adria Artis MD Primary Care Provider Encounter Details Date Type Department Care Team (Late st Contact Info) Description 03/27/2025 External Device Data [facility] ABSTRACTION Provider, Abstract NO ADDRESS ON FILE Social History Tobacco Use Types Packs/Day Years Used Date Smoking Tobacco: Never Assessed Sex and Gender Information Value Date Recorded Sex Assigned at Not on file Legal Sex Male 8:22 AM [employer] Gender Identity Not on file Sexual Orientation Not on file documented as of this encounter Plan of Treatment Upcoming Encounters Date Type Department Care Team (Late st Contact Info) Description 04/02/2025 7:30 AM CDT Appointment [facility] Interventional Radiology [address] [address] Magy Harrington MD [address] [address] Royce Coronel MD [facility] [place] [address] documented as of this encounter Visit Diagnoses Not on filedocumented in this encounter Care Teams Commercial Account Manager Relationship Specialty Start Date End Date Adria Artis MD [address] [place] [address] PCP - General Internal Medicine 09/16/22 documented as of this encounter
--- OUTSIDE RECORDS SUMMARY | 2025-03-29 13:06 | XMS_ITS | Encounter Summary ---
Author Organization [facility], [facility] Address [address] [place] [address] Phone Care Team Providers Care Foreign Language Stenographer Name Role Phone Unavailable Primary Care Provider Unavailabl e Encounter Details Date Type Department Care Team (Late st Contact Info) Description 03/13/2025 TCM in Dialysis Clinic [facility] [place], [facility] [address] [place] [address] Tawana Crisostomo NP [address] [place] [address] Social History Tobacco Use Types Packs/Day Years Used Date Smoking Tobacco: Never Assessed Sex and Gender Information Value Date Recorded Sex Assigned at Not on file Legal Sex Male 10:15 AM EDT Gender Identity Not on file Sexual Orientation Not on file documented as of this encounter Progress Notes * Tawana Crisostomo, MARIO - 03/13/2025 12:00 AM CDT Patient: Shon Mullen : 1945 Note Type: Dialysis TCM Service Date: 03/13/2025 The patient was seen for a [id number] visit as part of Transitional Care Management services. Attending Cross Country And Track And Field Coach: EDDA PEOPLES Dialysis Location: [facility] Schedule: Shift: 1 INTERACTIVE CONTACT COMMENTS: Seen on HD machine during dialysis rounds HOSPITALIZATION SUMMARY Patient transitioned from: Hospital Patient transitioned to: Home Admit Date: 02/28/2025 Discharge Date: 03/04/2025 Discharged info reviewed: Followed-up on or reviewed need for pending tests/treatments as noted Reason for admission: Bradycardia, symptomatic COMMENTS: On heart monitor, following with cardiology. Reviewed plan with patient HOME MEDICATIONS Discharge med list reviewed and reconciled - no changes. Active treatment medication orders reviewed - no changes. [facility] albuterol sulfate 90 mcg/actuation HFA aerosol inhaler Inhale 2 puff using inhaler every six hours. allopurinol 100 mg tablet Take 1 tablet by mouth once a day as needed. [for gout] apixaban 5 mg tablet Take 1/2 tablet by mouth twice a day. atorvastatin 80 mg tablet Take 1 tablet by mouth once a day. Brilinta 90 mg tablet Take 1 tablet by mouth twice a day. [(Ticagrelor)] cetirizine 10 mg capsule Take 1 capsule by mouth once a day. cholecalciferol (vitamin D3) 50 mcg (2,000 unit) capsule Take 1 capsule by mouth once a day. cyclobenzaprine 10 mg tablet Take 1 tablet by mouth three times a day as needed. [for muscle spasms] docusate sodium 100 mg capsule Take 2 capsule by mouth twice a day as needed. [for constipation] furosemide 40 mg tablet Take 1 tablet by mouth once a day. [for fluid retention] gabapentin 300 mg tablet extended release 24 hr Take 1 tablet by mouth twice a day. guaifenesin 100 mg/5 mL liquid Take 10 ml by mouth every six hours as needed. insulin glargine 100 unit/mL (3 mL) insulin pen Inject 35 unit subcutaneously once a day. isosorbide mononitrate tablet 30mg tablet Take 1/2 tablet by mouth twice a day. [For Chest Pain, Take on empty stomach] lidocaine 5% cream Apply 1 a small amount to skin as directed. [Apply 1 small amount to AVF 3x/week one hour before dialysis] nitroglycerin 0.4 mg tablet, sublingual Take 1 tablet under tongue as directed. [Place under tongue as needed for Chest pain. Call ED if not relieved after first tablet.] omega-3 fatty acids 1,000 mg capsule Take 2 capsule by mouth once a day. ondansetron HCl 8 mg tablet 1 tablet by mouth every eight hours as needed. [for nausea] oxycodone-acetaminophen 5-325 mg tablet Take 1 tablet by mouth once a day as needed for pain. [take 1 to 1 1/2 tabs daily] pantoprazole 40 mg tablet,delayed release (DR/EC) Take 1 tablet by mouth twice a day. polyethylene glycol 3350 17 gram powder in packet Take 1 packet by mouth once a day as needed. Renal-Zev 0.8 mg tablet Take 1 tablet by mouth once a day. roflumilast 500 mcg tablet Take 1 tablet by mouth once a day. [for COPD] triamcinolone acetonide 0.1% cream Apply 1 a small amount to affected area twice a day. Current [facility] Allergies Allergen: Cipro Reaction: Unknown Allergen: felodipine Reaction: Unknown Allergen: SULFA SULFONAMIDE ANTIBIOTICS Reaction: Unknown TREATMENT MEDICATIONS ORDERS Cinacalcet (Sensipar) 60 mg ORAL 3X Week 01/04/2025 - 01/03/2026 PHYSICAL EXAM Exam performed. Vital Signs Reviewed. Lungs - With bibasilar rales. CV - Blood pressure noted. CV - RRR. 2+ edema. COMMENTS: Chronic edema HR 58, asymptomatic at time of my assessment DIALYSIS PRESCRIPTION COMMENTS: Continue to challenge EDW as tolerated with DY treatments. Soft BP due to HFrEF, on midodrine for BP support: impairs fluid removal Treatment Data Treatment Date: 03/18/2025 started at: 5:48 AM Dialysate / Machine Temp (prescribed): 37.0*C Dialysate / Machine Temp (actual): 37.2*C BFR (prescribed): 550 BFR (actual): 200 DFR (prescribed): Autoflow 2.0 DFR (actual): 800 Prescribed Time: 03:45 EDW (kg): 123.6 Dialyzer: Optiflux 200NRe Dialysate: 2.0 K, 2.5 Ca, 1.0 Mg, 100 Dextrose (G2251) Sodium: 137 Bicarb: 35 Pre Dialysis Vitals Pre BP Sit: 108/69 Pre Wt (kg): 127.4 EDW Deviation (kg): 3.8 Temp: 97.1*F Current Dialysis Vitals BP Sit: 113/71 AP/LEGAL CONTRACTS SPECIALIST: -- Pulse: 71 CARE COORDINATION Post-discharge follow-up appointments reviewed with the patient. COMMENTS: Denies concerns with attending follow up visits EDUCATION Education relevant to the discharge diagnosis provided to the patient or caregiver COMMENTS: Reviewed plan for cardiology monitoring. IMPRESSION & PLAN COMMENTS: Ongoing education for fluid control, management. Continue midodrine as needed for BP support for UF. VISIT DIAGNOSES CPT Code 24280 - High complexity, seen 8-14 days post discharge or moderate complexity, seen [id number] days of discharge. R00.1 Bradycardia, unspecified COMMENTS: On 30 day monitor, verified. Patient appropriately reviewed plan of management monitoring as noted on discharge papers. Follow with cardiology Signed by: TAWANA CRISOSTOMO NP on 03/18/2025 at 11:05:46 AM Transcribed by: TAWANA CRISOSTOMO NP on 03/18/2025 at 11:05:46 AM documented in this encounter Plan of Treatment Not on file documented as of this encounter Visit Diagnoses Not on filedocumented in this encounter
--- OUTSIDE RECORDS SUMMARY | 2025-03-29 13:06 | XMS_ITS | Clinical Summary ---
Author Organization [facility] Address [address] [place] [address] Phone Care Team Providers Care Hospice Educator Name Role Phone Adria Artis MD Primary Care Provider Allergies Active Allergy Reactions Criticality Noted Date Comments Ciprofloxacin Hives High 09/16/2022 Felodipine Hives High 09/16/2022 Sulfamethoxazole-Trimethoprim Hives High 2022 Medications apixaban (Eliquis) 2.5 mg tablet Take 2.5 mg by mouth 2 times daily. Active oxyCODONE (ROXICODONE) 5 mg tablet Take 5 mg by mouth every 4 hours as needed for Pain. Active vitamin B complex-vitamin C-folic acid 1 mg Capsule Take 1 Capsule by mouth daily. Active roflumilast (DALIRESP) 500 mcg Tablet Take 500 mcg by mouth daily. Active atorvastatin (LIPITOR) 80 mg tablet Take 80 mg by mouth daily. Active carvediloL (COREG) 6.25 mg tablet Take 6.25 mg by mouth 2 times daily with meals. Active furosemide (LASIX) 40 mg tablet Take 40 mg by mouth daily. Active isosorbide mononitrate (IMDUR) 30 mg Extended Release 24 hour tablet Take 30 mg by mouth daily in the morning. Active ticagrelor (BRILINTA) 90 mg Tablet Take 90 mg by mouth one time only. Active spironolactone (ALDACTONE) 50 mg tablet Take 50 mg by mouth daily. Active pantoprazole (PROTONIX) 40 mg Tablet, Delayed Release (E.C.) Take 40 mg by mouth daily. Active gabapentin (NEURONTIN) 300 mg capsule Take 300 mg by mouth 3 times daily. Active cyclobenzaprine (FLEXERIL) 10 mg tablet Take 10 mg by mouth 3 times daily as needed for Spasm. Active allopurinoL (ZYLOPRIM) 100 mg tablet Take 100 mg by mouth daily. Active sevelamer carbonate (RENVELA) 800 mg Tablet Take 800 mg by mouth 3 times daily with meals. Active tiotropium Br/olodaterol HCl (TIOTROPIUM-OLOD ATEROL INHALATION) Take 2.5 mcg by inhalation daily. Active Encounters Date Type Department Care Team Description 03/27/2025 External Device Data [facility] ABSTRACTION Provider, Abstract 03/27/2025 External Device Data [facility] ABSTRACTION Provider, Abstract 02/26/2025 External Device Data [facility] ABSTRACTION Provider, Abstract 02/05/2025 External Device Data [facility] ABSTRACTION Provider, Abstract 02/05/2025 External Device Data [facility] ABSTRACTION Provider, Abstract 01/30/2025 External Device Data [facility] ABSTRACTION Provider, Abstract 01/29/2025 External Device Data [facility] ABSTRACTION Provider, Abstract from Last 3 Months Social History Tobacco Use Types Packs/Day Years Used Date Smoking Tobacco: Never Assessed Sex and Gender Information Value Date Recorded Sex Assigned at Not on file Legal Sex Male 8:22 AM FIELDWORK COORDINATOR Gender Identity Not on file Sexual Orientation Not on file Last Filed Vital Signs Vital Sign Reading Time Taken Comments Blood Pressure 125/100 11/15/2024 1:55 PM FIELDWORK COORDINATOR Pulse 81 11/15/2024 1:55 PM FIELDWORK COORDINATOR Temperature 36.4 C (97.5 F) 11/15/2024 1:55 PM FIELDWORK COORDINATOR Respiratory Rate 16 11/15/2024 1:55 PM FIELDWORK COORDINATOR Oxygen Saturation 94% 11/15/2024 1:55 PM FIELDWORK COORDINATOR Inhaled Oxygen Concentration - - Weight 125.6 kg (277 lb) 11/15/2024 11:17 AM FIELDWORK COORDINATOR Height 180.3 cm (5' 11 ) 11/15/2024 11:17 AM FIELDWORK COORDINATOR Body Mass Index 38.63 11/15/2024 11:17 AM FIELDWORK COORDINATOR Plan of Treatment Upcoming Encounters Date Type Department Care Team (Late st Contact Info) Description 04/02/2025 7:30 AM CDT Appointment [facility] [address] [place] [address] Magy Harrington MD [address] [place] [address] Royce Coronel MD [id number] [place] [address] Health Maintenance Due Date Last Done Comments DIABETES ANNUAL FOOT EXAM 1965 DIABETES ANNUAL RETINAL EXAM 1965 DIABETES MICROALBUMIN ANNUAL SCREEN 1965 LDL CHOLESTEROL ANNUAL 1965 ZOSTER VACCINE (2 of 3) 07/12/2012 05/17/2012 RSV VACCINE (60+ or ) (1 - 1-dose 75+ series) 2022 DIABETES HBA1C Q 6 MONTHS 02/13/2025 08/15/2024 INFLUENZA VACCINE (#1) 2025 , 09/12/2023, 06/22/2023, Additional history exists DTAP/TDAP/TD VACCINES (3 - T d or Tdap) 05/25/2028 05/25/2018, 09/12/2008 PNEUMOCOCCAL VACCINE 50+ YEARS Completed 1 10/22/2014, 08/21/2015, 01/16/2015, Additional history exists Insurance [address] [place] [address] MEDICARE PART A AND B [facility] [employer] * Guarantor: [facility] Account Type Relation to Patient Date of Phone Billing Address Corporate Other DEFAULT ADDRESS [address] [employer] * Guarantor: [facility] [employer] [employer] Account Type Relation to Patient Date of Phone Billing Address Corporate Other DEFAULT ADDRESS [address] [employer] [place] [employer] Care Teams Hospice Educator Relationship Specialty Start Date End Date Adria Artis MD [address] [place] [address] PCP - General Internal Medicine 09/16/22
--- OUTSIDE RECORDS SUMMARY | 2025-03-29 13:06 | XMS_ITS | Clinical Summary ---
Author Organization [facility], [facility] Address [address] [place] [address] Phone Care Team Providers Care Battery Assembler Plastic Name Role Phone Unavailable Primary Care Provider Unavailabl e Encounters Date Type Department Care Team Description 03/27/2025 Orders Only [facility], [facility] [address] [place] [address] Magy Harrington MD 03/25/[address] [place] [address] [facility], [facility] [address] [place] [address] Esmer Schafer NP End stage renal disease; Dependence on renal dialysis 03/20/2025 Orders Only [facility], [facility] [address] [place] [address] Magy Harrington MD 03/20/[address] [place] [address], [facility] [address] [place] [address] Rosemarie Bhatti NP End stage renal disease; Dependence on renal dialysis 03/18/2025 Orders Only [facility], [facility] [address] [place] [address] Magy Harrington MD 03/13/2025 TCM in Dialysis Clinic [address] [place] [address], [facility] [address] [place] [address] Rosemarie Bhatti NP 03/13/[address] [place] [address] [facility], [facility] [address] [place] [address] Magy, Rosemarie, CONSTRUCTION RECRUITER End stage renal disease; Dependence on renal dialysis 03/06/2025 [facility] [address] [place] [address] Magy Harrington MD 02/20/2025 [facility] [address] [place] [address] Magy Harrington MD 02/18/[address] [place] [address], [facility] [address] [place] [address] Esmer Schafer NP End stage renal disease; Dependence on renal dialysis 02/13/2025 Orders Only [facility], [facility] [address] [place] [address] Magy Harrington MD 02/11/[address] [place] [address], [facility] [address] [place] [phone] Esmer Schafer NP End stage renal disease; Dependence on renal dialysis 02/06/2025 Orders [facility], [facility] [address] [place] [address] Magy Harrington MD 02/06/[address] [place] [address], [facility] [address] [place] [address] Magy Harrington MD End stage renal disease; Dependence on renal dialysis 01/30/2025 Orders [facility], [facility] [address] [place] [address] Magy Harrington MD 01/28/[address] [place] [address], [facility] [address] [place] [address] Rosemarie Bhatti NP End stage renal disease; Dependence on renal dialysis 01/23/2025 Orders [facility], [facility] [address] [place] [address] Magy Harrington MD 01/21/[address] [place] [address] Nephrology [facility], [facility] [address] [place] [address] Esmer Schafer NP End stage renal disease; Dependence on renal dialysis 01/16/2025 Orders Only [facility], [facility] [address] [place] [address] Magy Harrington MD 01/14/[address] [place], [place] [address]rology [facility], [facility] [address] [place] [address] Rosemarie Bhatti NP End stage renal disease; Dependence on renal dialysis 01/09/2025 [facility], [facility] [address] [place] [address] Magy Harrington MD 01/02/2025 Orders Only [facility], [facility] [address] [place] [address] Magy Harrington MD 12/31/[address] [place], [place] [address]rology [facility], [facility] [address] [place] [address] Magy Harrington MD End stage renal disease; Dependence on renal dialysis from Last 3 Months Social History Tobacco Use Types Packs/Day Years Used Date Smoking Tobacco: Never Assessed Sex and Gender Information Value Date Recorded Sex Assigned at Not on file Legal Sex Male 10:15 AM EDT Gender Identity Not on file Sexual Orientation Not on file Plan of Treatment Health Maintenance Due Date Last Done Comments Hepatitis B Vaccine (1 of 5 - Risk Dialysis 4-dose series) 1965 06/09/2005 Diabetes: Pedal Pulse Checked 05/18/2022 Diabetes: Sensory Foot Exam 05/18/2022 Diabetes: Visual Foot Exam 05/18/2022 Diabetes: Hemoglobin A1C 11/13/2024 024, 05/16/2024, 02/15/2024, Additional history exists Influenza Vaccine (#1) 2025 , 06/22/2023, 06/12/2023, Additional history exists Diabetes: Ophthalmology Exam 01/15/2026 01/15/2025 Pneumococcal Vaccine: 50+ Years Completed 02/06/2021, 08/21/2015, 01/16/2015, Additional history exists Procedures Procedure Name Priority Date/Time Associated Diagnosis Comments HEMATOLOGY Routine 03/27/2025 HEMATOLOGY Routine 03/20/2025 [facility] LAB RESULTS Routine 03/18/2025 HD KINETICS Routine 03/18/2025 POST CHEMISTRY Routine 03/18/2025 CHEMISTRY Routine 03/18/2025 HEMATOLOGY Routine 03/18/2025 HEMATOLOGY Routine 03/06/2025 IMMUNO CHEMISTRY Routine 02/20/2025 HEMATOLOGY Routine 02/20/2025 [facility] LAB RESULTS Routine 02/13/2025 HD KINETICS Routine 02/13/2025 POST CHEMISTRY Routine 02/13/2025 CHEMISTRY Routine 02/13/2025 CHEMISTRY Routine 02/13/2025 HEMATOLOGY Routine 02/13/2025 HEMATOLOGY Routine 02/06/2025 HEMATOLOGY Routine 01/30/2025 HEMATOLOGY Routine 01/23/2025 [facility] ALLEGRA LAB RESULTS Routine 01/16/2025 HD KINETICS Routine 01/16/2025 POST CHEMISTRY Routine 01/16/2025 CHEMISTRY Routine 01/16/2025 HEMATOLOGY Routine 01/16/2025 HEMATOLOGY Routine 01/09/2025 HEMATOLOGY Routine 01/02/2025 SPECIAL CHEMISTRY Routine 08/15/2024 from Last 3 Months or Most Recently Relevant to Health Maintenance Results * (ABNORMAL) HEMATOLOGY (03/27/2025) Only the most recent of12 resultswithin the time period is included. Hemoglobin 10.6(L) 14.0 - 18.0 g/dL [facility] Hemoglobin x 3 31.8(L) 42.0 - 54.0 % [facility] 03/27/2025 03/28/2025 9:0 4 AM CDT Narrative [facility] - 03/28/2025 Unless otherwise specified, test(s) performed at: [facility], [address] [place] [address] SPOOLER: Anupam Vazquez M.D. For any questions, please call customer service at FREQUENCY:OTHER Resulting Agency Comment Specimen source: Blood Magy Harrington MD LAB BLOOD ORDERABLES Final Re sult Performing Organization Address City/[facility] Co de Phone Number [employer] [facility] See order comments or contact performing lab Unknown, [place] * HD KINETICS (03/18/2025) Only the most recent of3 resultswithin the time period is included. % Urea Reduction 68 65 - 80 % [facility] 03/18/2025 03/19/2025 11: 10 AM CDT Narrative Resulting Agency Comment Specimen source: Plasma us Magy Harrington MD LAB BLOOD ORDERABLES Final Re sult Performing Organization Address [facility]/ZIP Co de Phone Number [facility] See order comments or contact performing lab Unknown, [place] * POST CHEMISTRY (03/18/2025) Only the most recent of3 resultswithin the time period is included. BUN Post Dialysis 10 6 - 19 mg/dL [facility] 03/18/2025 03/19/2025 11: 10 AM CDT Narrative [facility] - 03/19/2025 Unless otherwise specified, test(s) performed at: [facility], [address] [place] [address] SPOOLER: Anupam Vazquez M.D. For any questions, please call customer service at FREQUENCY:MONTHLY Resulting Agency Comment Specimen source: Plasma Magy Harrington MD LAB BLOOD ORDERABLES Final Re sult Performing Organization Address [facility] Co de Phone Number [facility] See order comments or contact performing lab Unknown, [place] * (ABNORMAL) [facility] (03/18/2025) Only the most recent of4 resultswithin the time period is included. BUN 31(H) 6 - 19 mg/dL [facility] Creatinine 4.93(H) 0.60 - 1.30 mg/dL [facility] BUN/Creatinine Ratio 6.3(L) 10.0 - 20.0 [facility] Sodium 136 136 - 145 mEq/L [facility] Potassium 4.8 3.5 - 5.1 mEq/L [facility] Chloride 94(L) 96 - 108 mEq/L [facility] Bicarbonate (CO2) 28 22 - 29 mEq/L [facility] Calcium 8.8 8.4 - 10.2 mg/dL [facility] Corrected Calcium 9.3 8.4 - 10.2 mg/dL [facility] Comment: Corrected Calcium is not equivalent to measured Ionized Calcium. Phosphorus 4.0 2.6 - 4.5 mg/dL [facility] Calcium Phosphorus Product 35 0 - 54 [facility] Calcium Phosporus Product, Cor 37 0 - 54 [facility] Total Protein 7.5 6.0 - 8.5 g/dL [facility] Albumin 3.4(L) 3.5 - 5.2 g/dL [facility] Globulin, Total 4.1(H) 2.0 - 4.0 g/dL [facility] A/G Ratio 0.8(L) 1.0 - 2.0 [facility] Iron 40(L) 45 - 160 mcg/dL [facility] UIBC 154(L) 155 - 355 mcg/dL [facility] TIBC 194 185 - 515 mcg/dL [facility] Iron Saturation (TSat) 21 20 - 55 % [facility] 03/18/2025 03/19/2025 12: 24 PM CDT Narrative [facility] - 03/19/2025 Unless otherwise specified, test(s) performed at: [facility], [address] [place] [address] SPOOLER: Anupam Vazquez M.D. For any questions, please call customer service at FREQUENCY:MONTHLY Resulting Agency Comment Specimen source: Serum Magy Harrington MD LAB BLOOD ORDERABLES Final Re sult [facility] [facility] See order comments or contact performing lab Unknown, [place] * [facility] Lab Results (03/18/2025) Only the most recent of3 resultswithin the time period is included. [facility] eNPCR 0.48 [facility] eKt/V ([place]) 1.10 [facility] nPCR_HD 0.50 [facility] eKt/V Gotch 1.10 [facility] e Center spKt/V (Daugirdas II) 1.29 [facility] WSTDKT/V 2.2 [facility] PCR 48.14 [facility] eKdrt/V 1.10 [facility] spKt/V Gotch 1.29 [facility] 03/18/2025 03/18/2025 [facility] [place] LAB BLOOD ORDERABLES Final Result [facility] Center Contact Performing lab Unknown, [place] * IMMUNO CHEMISTRY (02/20/2025) Pathologist [facility] Hep B Surface Ag Negative Negative [facility] Hepatitis B Surface Ab 36 mIU/mL [facility] Comment: The anti-HBs (Hepatitis B surface antibody) is greater than or equal to 10 mIU/mL and implies immunity. The patient has either had an antibody response to HBV vaccination, received a transfusion, or has recovered from HBV infection. For post-vaccination antibody testing guidelines for the general public, refer to MMWR September 03, 2005/Vol.54 (No. 16); 1-23, and for healthcare workers, refer to MMWR August 31, 2013/Vol.62 (No. 10); 1-18. Reference Range: <10 mIU/mL Non-Immune >=10 mIU/mL Immune The magnitude of the measured result above 10 mIU/mL is not indicative of the total amount of antibody present. 02/20/2025 02/21/2025 11: 50 AM CDT Narrative [employer] - 02/21/2025 Unless otherwise specified, test(s) performed at: [facility], [address] [place] [address] SPOOLER: Anupam Vazquez M.D. For any questions, please call customer service at FREQUENCY:OTHER Resulting Agency Comment Specimen source: Serum aMgy Harrington MD LAB BLOOD ORDERABLES Final Re sult Performing Organization Address [facility] Co de Phone Number [employer] See order comments or contact performing lab [facility], [place] * (ABNORMAL) SPECIAL CHEMISTRY (08/15/2024) Hemoglobin A1C 6.6(H) 4.8 - 5.9 % [facility] 08/15/2024 08/16/2024 11: 28 AM CHEMICAL DETECTION EXPERT Narrative [facility] - 08/17/2024 Unless otherwise specified, test(s) performed at: [facility], [address] [place] [address] SPOOLER: Anupam Vazquez M.D. For any questions, please call customer service at FREQUENCY:MONTHLY Resulting Agency Comment Specimen source: Blood Magy Harrington MD LAB BLOOD BANK TEST ORDERABLE S Final Result Performing Organization Address [facility]/ZIP Co de Phone Number [facility] See order comments or contact performing lab Unknown, [place] from Last 3 Months or Most Recently Relevant to Health Maintenance [address] [place] [address] [facility] Regions 1,2,3 (VACCN)
--- OUTSIDE RECORDS SUMMARY | 2025-03-29 13:06 | XMS_ITS | Encounter Summary ---
Author Organization [facility] Address [address] [place] [address] Care Team Providers Care Tapper Supervisor Name Role Phone Adria Artis MD Primary [...] on file Legal Sex Male 8:22 AM SCHEDULING ASSISTANT Gender Identity Not on file Sexual Orientation Not on file documented as of this encounter Plan of Treatment Upcoming Encounters Date Type Department Care Team (Late st Contact Info) Description 04/02/2025 7:30 AM CDT Appointment [facility] Interventional Radiology [address] [address] Magy Harrington MD [address] [address] Royce Coronel MD formerly [facility] [place] [address] documented as of this encounter Visit Diagnoses Not on filedocumented in this encounter Care Teams Tapper Supervisor Relationship Specialty Start Date End Date Adria Artis MD [address] [place] [address] PCP - General Internal Medicine 09/16/22 documented as of this encounter
--- OUTSIDE RECORDS SUMMARY | 2025-03-29 13:06 | XMS_ITS | Encounter Summary ---
Author Organization [facility] [facility], [facility] Address [address] [place] [address] Phone Care Team Providers Care Hull And Deck Remover Name Role Phone Unavailable Primary Care Provider Unavailabl e Encounter Details Date Type Department Care Team (Late st Contact Info) Description 03/25/2025 Treatment [facility], [facility] [address] [place] [address] Cynthia Kunz NP [address] [place] [address] End stage renal disease; Dependence on renal dialysis Social History Tobacco Use Types Packs/Day Years Used Date Smoking Tobacco: Never Assessed Sex and Gender Information Value Date Recorded Sex Assigned at Not on file Legal Sex Male 10:15 AM EDT Gender Identity Not on file Sexual Orientation Not on file documented as of this encounter Miscellaneous Notes * Dialysis Note - Cynthia Kunz NP - 03/25/2025 12:00 AM CDT BASIC NOTE Patient: Shon Mullen : 1945 Note Author: CYNTHIA KUNZ NP Service Date: 03/25/2025 This patient was personally seen for a basic visit as part of routine monthly dialysis care for end stage renal disease. Attending Osha Inspector: EDDA PEOPLES Dialysis Location: [facility] DIALYS[facility] Schedule: M-W-F Shift: 1 OVERVIEW COMMENTS: Seen on HD. Not meeting clearance, bleeding of access, has been increased to 200 dialyzer, still not meeting clearance. Has been scheduled for fistulogram. DIALYSIS PRESCRIPTION Treatment Data Treatment Date: 03/25/2025 started at: 5:59 AM Dialysate / Machine Temp (prescribed): 37.0*C Dialysate / Machine Temp (actual): 37.0*C BFR (prescribed): 550 BFR (average delivered): 550 DFR (prescribed): Autoflow 2.0 DFR (average delivered): 800 Prescribed Time: 03:45 Actual Time: 03:50 EDW (kg): 123.6 Dialyzer: Optiflux 200NRe Dialysate: 2.0 K, 2.5 Ca, 1.0 Mg, 100 Dextrose (G2251) Sodium: 137 Bicarb: 35 Pre Dialysis Vitals Pre BP Sit: 115/64 Pre Wt (kg): 128.6 EDW Deviation (kg): 5.0 Temp: 97.5*F Post Dialysis Vitals Post BP Sit: 132/80 Post Wt (kg): 125.0 TREATMENT MEDICATIONS ORDERS Cinacalcet (Sensipar) 60 mg ORAL 3X Week 01/04/2025 - 01/03/2026 BP AND FLUID ASSESSMENT Post BP Sit 132/80 - 03/25/2025 105/74 - 03/22/2025 115/74 - 03/20/2025 Post Wt (kg) 125.0 - 03/25/2025 123.9 - 03/22/2025 123.2 - 03/20/2025 EDW (kg) 123.6 - 03/25/2025 123.6 - 03/22/2025 123.6 - 03/20/2025 Deviation (kg) 1.4 - 03/25/2025 0.3 - 03/22/2025 -0.4 - 03/20/2025 ADEQUACY ASSESSMENT spKt/V (Daugirdas II) 1.29 (03/18/25) 1.30 (02/13/25) 1.22 (01/16/25) eKdrt/V 1.10 (03/18/25) 1.18 (02/13/25) 1.07 (01/16/25) % Urea Reduction 68 (03/18/25) 66 (02/13/25) 65 (01/16/25) BUN 31 (03/18/25) 29 (02/13/25) 26 (01/16/25) BUN Post Dialysis 10 (03/18/25) 10 (02/13/25) 9 (01/16/25) Creatinine 4.93 (03/18/25) 4.31 (02/13/25) 4.20 (01/16/25) Bicarbonate (CO2) 28 (03/18/25) 25 (02/13/25) 25 (01/16/25) Sodium 136 (03/18/25) 135 (02/13/25) 134 (01/16/25) ACCESS ASSESSMENT Vascular access examined. Current access is permanent and functioning well. COMMENTS: Bleeding around needles and post treatment, has upcoming fistulogram [employer] Unknown Right Upper Arm Active (In Use) - 04/29/2022 Placed - 01/26/2016 Access Flow 1177 (02/20/25) 618 (02/01/25) 714 (01/30/25) ANEMIA ASSESSMENT Hemoglobin 10.2 (03/20/25) 10.8 (03/18/25) 11.5 (03/06/25) Iron Saturation (TSat) 21 (03/18/25) 30 (02/13/25) 30 (01/16/25) Ferritin 1,327 (02/13/25) 1,611 (01/16/25) 1,413 (12/19/24) Iron 40 (03/18/25) 61 (02/13/25) 63 (01/16/25) TIBC 194 (03/18/25) 201 (02/13/25) 211 (01/16/25) Reticulocyte Hemoglobin 29.6 (04/25/24) MCV 98 (03/18/25) 99 (02/13/25) 100 (01/16/25) Folate 20.8 (11/14/24) Platelets 202 (03/18/25) 176 (02/13/25) 172 (01/16/25) BMM ASSESSMENT Calcium 8.8 03/18/25 8.3 02/13/25 8.2 01/16/25 Corrected Calcium 9.3 03/18/25 8.9 02/13/25 8.8 01/16/25 Phosphorus 4.0 03/18/25 4.2 02/13/25 3.3 01/16/25 Calcium Phosphorus Product 35 03/18/25 35 02/13/25 27 01/16/25 PTH 387 02/13/25 298 11/14/24 236 08/15/24 Vitamin D, 25-OH, Total 59.9 11/14/24 Magnesium 1.6 02/13/25 1.8 11/14/24 1.7 08/15/24 Alkaline Phosphatase 103 02/13/25 85 11/14/24 76 08/15/24 Aluminum <5 11/14/24 <5 05/16/24 NUTRITION ASSESSMENT Albumin 3.4 03/18/25 3.3 02/13/25 3.3 01/16/25 Potassium 4.8 03/18/25 4.9 02/13/25 4.9 01/16/25 eNPCR 0.48 03/18/25 0.54 02/13/25 0.47 01/16/25 Hemoglobin A1C 6.6 08/15/24 6.7 05/16/24 ADDITIONAL LABS WBC 7.91 (03/18/25) 9.52 (02/13/25) 8.33 (01/16/25) Hepatitis B Surface Ab 36 (02/20/25) Signed by: CYNTHIA KUNZ NP on 03/25/2025 at 04:12:40 PM Transcribed by: CYNTHIA KUNZ NP on 03/25/2025 at 04:12:40 PM documented in this encounter Plan of Treatment Not on file documented as of this encounter Visit Diagnoses Diagnosis End stage renal disease Dependence on renal dialysis documented in this encounter
--- NOTE | 2025-03-29 13:28 | W.ED.ARRPALP ---
HPI - Arrhythmia/Palpitations General: Chief Complaint: Arrhythmia/Palpitations Stated Complaint: pacemaker lead not picking up Time Seen by Provider: 03/29/25 13:26 History of Present Illness: 80-year-old male presented to the emergency room at the direction of cardiology clinic they evaluated his pacer found that he did not have good capture and he was directed to the emergency room on arrival here he is intermittent capture on the monitor strip he denies any shortness of breath or chest discomfort. He had head or evaluated earlier this year and it had been working fine. Related Data Home Medications ?Medication ?Instructions ?Recorded ?Confirmed atorvastatin 80 mg tablet 80 mg PO DAILY@1800 10/02/19 03/29/25 gabapentin 300 mg capsule 300 mg PO BID@11/07/19 03/29/25 sevelamer carbonate 800 mg tablet 2,400 mg PO TID@,,11/07/19 03/29/25 (Renvela) docusate sodium 100 mg capsule 200 mg PO BID@,09/17/20 03/29/25 allopurinol 100 mg tablet 100 mg PO DAILY PRN Gout 11/11/20 03/29/25 insulin glargine 100 unit/mL 35 unit SUBCUT QAM 07/13/21 03/29/25 subcutaneous solution (Lantus U-100 Insulin) cholecalciferol (vitamin D3) 50 50 mcg PO QAM 11/11/21 03/29/25 mcg (2,000 unit) capsule cetirizine 10 mg tablet (Zyrtec) 10 mg PO DAILY@04/26/22 03/29/25 omega-3 fatty acids 1,000 mg 1,000 mg PO BID@,04/26/22 03/29/25 capsule vitamin B complex with vit C-folic 1 tab PO QAM 03/07/23 03/29/25 acid 800 mcg-zinc 12.5 mg tablet (RenaPlex) furosemide 40 mg tablet 40 mg PO QAM 06/20/23 03/29/25 cyclobenzaprine 10 mg tablet 10 mg PO TID PRN Muscle Spasm 07/01/23 03/29/25 polyethylene glycol 3350 17 17 g PO DAILY PRN Constipation 07/01/23 03/29/25 gram/dose oral powder pantoprazole 40 mg tablet,delayed 40 mg PO BID 10/25/24 03/29/25 release citalopram 20 mg tablet 10 mg PO QAM 01/31/25 03/29/25 azelastine 137 mcg (0.1 %) nasal 1 spray intranasal BID 02/27/25 03/29/25 spray fluticasone 100 mcg-salmeterol 50 1 inh inhalation BID 02/27/25 03/29/25 mcg/dose blistr powdr for inhalation (Wixela Inhub) fluticasone propionate 50 1 spray intranasal DAILY 02/27/25 03/29/25 mcg/actuation nasal spray,suspension (Flonase Allergy Relief) ketoconazole 2 % topical cream 1 applic topical BID 02/27/25 03/29/25 lidocaine-prilocaine 2.5 %-2.5 % 1 applic topical QID 02/27/25 03/29/25 topical cream nut.tx.imp.renal fxn,lac-reduc 1 ea PO DAILY 02/27/25 03/29/25 0.08 gram-1.8 kcal/mL oral liquid (Nepro Carb Steady) oxycodone-acetaminophen 5 mg-325 See Rx Instructions .Route 02/27/25 03/29/25 mg tablet .COMPLEX PRN Pain testosterone cypionate 200 mg/mL 200 mg IM Q14D 02/27/25 03/29/25 intramuscular syringe tiotropium bromide 2.5 2 puff inhalation DAILY 02/27/25 03/29/25 mcg/actuation mist for inhalation (Spiriva Respimat) Previous Rx's ?Medication ?Instructions ?Recorded albuterol sulfate 90 mcg/actuation 2 puff inhalation Q6H PRN 01/02/21 aerosol inhaler shortness of breath or wheezing 30 days #8.5 grams nitroglycerin 0.4 mg sublingual 0.4 mg sublingual Q5M PRN Chest 10/04/23 tablet (Nitrostat) Pain #25 tabs ticagrelor 90 mg tablet (Brilinta) 90 mg PO BID #180 tabs 11/15/23 triamcinolone acetonide 0.1 % 1 applic topical BID #453.6 grams 12/13/23 topical cream Afflo Vest #1 ea 01/12/24 Afflo Vest #1 ea 01/12/24 guaifenesin 100 mg/5 mL oral liquid 200 mg (10 mL) PO Q4H PRN cough 03/01/24 #473 mL Diabetic Shoes with 3 Custom #1 ea 03/27/24 Inserts diclofenac sodium 1 % topical gel 2 g topical QID 30 days #100 grams 06/26/24 (Voltaren Arthritis Pain) apixaban 2.5 mg tablet 2.5 mg PO BID #180 tabs 10/25/24 isosorbide mononitrate 30 mg 15 mg (1/2 x 30 mg) PO BID #90 tabs 10/25/24 tablet,extended release 24 hr midodrine 2.5 mg tablet 2.5 mg PO BID PRN low blood 02/26/25 pressure #60 tabs Allergies Allergy/AdvReac Type Severity Reaction Status Date / Time ciprofloxacin (From Cipro) Allergy rash Verified 03/29/25 13:22 felodipine Allergy rash Verified 03/29/25 13:22 sulfamethoxazole (From Allergy rash Verified 03/29/25 13:22 ) trimethoprim (From ) Allergy rash Verified 03/29/25 13:22 Review of Systems Const: Denies: fever(s) or chills Card: Denies: chest pain Resp: Denies: dyspnea GI: Denies: abdominal pain : Denies: dysuria, urinary frequency or urinary urgency Musc: Denies: neck pain or back pain Skin/Breast: Denies: rash PFSH ED PFSH: Medical History Atrial fibrillation NSTEMI (non-ST elevated myocardial infarction) End-stage renal disease (ESRD) LV dysfunction Anemia Respiratory failure with hypoxia CHF (congestive heart failure) Chronic anticoagulation ESRD (end stage renal disease) Myocardial infarct Renal failure Heart failure Small airways disease Restrictive lung disease Diabetes mellitus Hypercholesteremia Neuropathy Pneumonia MARAL (obstructive sleep apnea) CAD (coronary artery disease) Pacemaker Accelerated essential hypertension Surgical History Peritoneal dialysis status (03/02/21) removed History of colonoscopy with polypectomy 2020 Hemodialysis access, AV graft S/P cataract surgery S/P PTCA (percutaneous transluminal coronary angioplasty) S/P cardiac pacemaker procedure S/P dialysis catheter insertion Family History Mother Heart disease Social History Smoking and tobacco/nicotine status: former use of tobacco/nicotine Quit status (tobacco/nicotine): has quit using Year quit tobacco: 1984 Former quit date comment: 3PPD x 17 Years Second hand smoke exposure: No Alcohol intake: never Substance/Drug Use: never Lives independently: Yes Household members: spouse Housing: House Marital status: service: Yes Current occupational status: retired Pets and animals: No Do you think of yourself as: Straight/Heterosexual Current gender identity: Male Physical Exam Const: GENERAL APPEARANCE: cooperative ORIENTATION/CONSCIOUSNESS: Yes awake, Yes oriented to person, Yes oriented to place and Yes oriented to time HENMT: COMMON NORMALS: normocephalic, atraumatic and hearing grossly normal bilaterally HEAD & SCALP: normocephalic and atraumatic Resp: COMMON NORMALS: normal respiratory effort, No retractions, No use of accessory muscles and clear to auscultation bilaterally AUSCULTATION: clear to auscultation bilaterally Cardio: COMMON NORMALS: regular rhythm and No murmurs present (Cardio) RATE: bradycardic RHYTHM: regular rhythm GI: COMMON NORMALS: Soft to palpation and No hepatosplenomegaly present AUSCULTATION: Yes normoactive bowel sounds PALPATION: Yes Soft to palpation, No Tenderness to palpation present (GI), No Guarding due to palpation present (GI) and Yes No hepatosplenomegaly present Extremity: COMMON NORMALS: normal to inspection, capillary refill normal, no clubbing, cyanosis or edema, no calf tenderness and no pedal edema Neuro: SENSORIUM/ORIENTATION: Yes oriented to person, Yes oriented to place and Yes oriented to time Skin: COMMON NORMALS: no rashes or lesions noted GENERAL SKIN EXAM: no rashes or lesions noted Course Vital Signs: Vital signs: Vital Signs Temperature 97 F L 03/29/25 13:09 Pulse Rate 64 03/29/25 19:31 Respiratory Rate 19 H 03/29/25 19:31 Blood Pressure 98/56 03/29/25 19:31 Pulse Oximetry 95 03/29/25 19:31 Oxygen Delivery Me thod Nasal Cannula 03/29/25 13:37 Oxygen Flow Rate 6 03/29/25 13:37 MDM - Arrhythmia/Palpitations Medical Decision Making Patient was third-degree block on the rhythm strip she is heart rate at times is dropping down in to the 30s.0.0 his pacemaker is not capturing I discussed with Dr. Schwab they evaluated in the cardiology clinic and attempted to with high voltage and still could not attain capture. He is tolerating well as long as he stays lying in bed but with any activity he gets extremely short of breath. He is in end-stage renal disease patient on hemodialysis had his dialysis today. Will transfer to [facility] in [place] for further evaluation and likely replacement of his pacemaker. Lab Data 03/29/25 13:35 03/29/25 13:35 Radiology Impressions Chest X-Ray 03/29/25 13:30 IMPRESSION: Chronic congestive failure. Improving presumed pulmonary edema and pleural effusion in the right lower hemithorax. Laboratory Results WBC 7.66 10^3/uL (3.29-11.43) 03/29/25 13:35 RBC 3.50 10^6/uL (3.85-5.65) L 03/29/25 13:35 Hgb 10.80 g/dL (11.27-16.99) L 03/29/25 13:35 Hct 34.1 % (37-53) L 03/29/25 13:35 MCV 97.4 fl (82-101) 03/29/25 13:35 MCH 30.9 pg (27-33) 03/29/25 13:35 MCHC 31.7 g/dL (30-55) 03/29/25 13:35 RDW 17.0 % (12.1-15.1) H 03/29/25 13:35 Plt Count 208 10^3/cmm (157-399) 03/29/25 13:35 MPV 10.2 fL (7.4-10.4) 03/29/25 13:35 Neut % (Auto) 74.5 % 03/29/25 13:35 Lymph % (Auto) 8.6 % 03/29/25 13:35 Griggs % (Auto) 13.4 % 03/29/25 13:35 Eos % (Auto) 2.0 % 03/29/25 13:35 Baso % (Auto) 0.8 % 03/29/25 13:35 Neut # (Auto) 5.71 10^3/uL (1.8-7.7) 03/29/25 13:35 Lymph # (Auto) 0.7 10^3/uL (0.8-4.8) L 03/29/25 13:35 Griggs # (Auto) 1.0 10^3/uL (0.2-0.9) H 03/29/25 13:35 Eos # (Auto) 0.2 10^3/uL (0.0-0.8) 03/29/25 13:35 Baso # (Auto) 0.1 10^3/uL (0.0-0.1) 03/29/25 13:35 Nucleated RBC % (auto) 0 % 03/29/25 13:35 Nucleated RBCs # 0.0 /100WBC 03/29/25 13:35 Sodium 137 mmol/L (136-145) 03/29/25 13:35 Potassium 4.4 mmol/L (3.5-5.1) 03/29/25 13:35 Chloride 91 mmol/L (98-107) L 03/29/25 13:35 Carbon Dioxide 32 mmol/L (22-29) H 03/29/25 13:35 Anion Gap 18.4 (5-19) 03/29/25 13:35 BUN 13 mg/dL (8-23) 03/29/25 13:35 Creatinine 2.7 mg/dL (0.7-1.2) H 03/29/25 13:35 GFR Calculation Not Reportable 03/29/25 13:35 Glucose 77 mg/dL (65-115) 03/29/25 13:35 Calculated Osmolality 283 mOsm/kg (285-295) L 03/29/25 13:35 Calcium 8.6 mg/dL (8.5-10.5) 03/29/25 13:35 Total Bilirubin 0.8 mg/dL (0.15-1.2) 03/29/25 13:35 AST 13 U/L (0-40) 03/29/25 13:35 ALT 12 U/L (0-41) 03/29/25 13:35 Alkaline Phosphatase 158 U/L (40-130) H 03/29/25 13:35 Troponin T Baseline 163 ng/L (0-15) H* 03/29/25 13:35 Troponin T 120 Minute 150.8 ng/L (0-15) H 03/29/25 15:49 Delta Troponin T -12.2 ABS# (0-10) L 03/29/25 15:49 Total Protein 8.2 g/dL (6.6-8.7) 03/29/25 13:35 Albumin 3.6 g/dL (3.5-5.2) 03/29/25 13:35 Globulin 4.6 g/dL (1.3-4.6) 03/29/25 13:35 All radiology interpretation(s) finalized by discharge EKG Data EKG 1: Interpretation: EKG 03/29/2025 1317 Intermittently paced rhythm. Rate of 52 MO interval 206 QTc 461. Compared to EKG 02/27/2025 Other EKG comments: Chest X-Ray 03/29/25 13:30 IMPRESSION: Chronic congestive failure. Improving presumed pulmonary edema and pleural effusion in the right lower hemithorax. Discharge Plan Discharge Patient Disposition: Xfer Short-Term Hosp Condition: Stable Referrals: Micheal Guzmán MD [Primary Care Provider, [facility]] Print Language: Hungarian Coding Level of Care Code ED Inspector [place] for Chg Watson
--- NOTE | 2025-03-29 13:30 | ECG_ITS ---
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 Measurements Intervals [place] Rate: 52 P: 58 KS: 206 QRS: 212 QRSD: 165 T: 29 QT: 494 QTc: 461 Interpretive Statements Possible atrial fibrillation with pacer spikes- not capturing, suggest lead malfunction RIGHT AXIS DEVIATION [QRS AXIS > 100] RIGHT BUNDLE BRANCH BLOCK [120+ ms QRS DURATION, UPRIGHT V1, 40+ ms S IN I/aVL/V4/V5/V6] MODERATE T-WAVE ABNORMALITY, CONSIDER LATERAL ISCHEMIA [-0.1+ mV T-WAVE IN I/aVL/V5/V6] Compared to ECG 02/27/2025 06:54:27 Right-axis deviation now present T-wave abnormality now present Possible ischemia now present Myocardial infarct finding no longer present Electronically Signed On 03-30-2025 00:19:39 CDT by Megan Schwab M.D. [email or web address] [id number]
--- NOTE | 2025-03-29 13:30 | XR_ITS ---
WS: [id number] XR chest 1V portable [id number] REASON FOR EXAM: dyspnea/cough FINDINGS: Cardiac device of the left chest with trans left subclavian vein lead to the right ventricular apex. Calcified aortic arch with moderate tortuosity and ectasia of the thoracic aorta. Significant cardiomegaly. Significant central pulmonary venous congestion. Interstitial lung opacities in the right lower lung field with right pleural effusion. Right hemithorax abnormality is improved compared to the most recent examination of 02/27/2025. No new findings. XR/XR chest 1V portable [id number] IMPRESSION: Chronic congestive failure. Improving presumed pulmonary edema and pleural effusion in the right lower jami thorax.
[2025-03-29 13:40] LABS: Hematocrit 34.1 % (37-53); Hemoglobin 10.80 g/dL (11.27-16.99); Mean Corpuscular HGB Conc 31.7 g/dL (30-55); Mean Corpuscular Hemoglobin 30.9 pg (27-33); Mean Corpuscular Volume 97.4 fl (82-101); Nucleated Red Blood Cells % 0 %; Platelet Count 208 10^3/cmm (157-399); Red Blood Count 3.50 10^6/uL (3.85-5.65); White Blood Count 7.66 10^3/uL (3.29-11.43)
--- NOTE | 2025-03-29 13:47 | PC.NURSE ---
this nurse informed pt for need of urine sample, pt states urinated this morning and then received dialysis so will not be able to urinate tonight.
--- NOTE | 2025-03-29 13:48 | PC.NURSE ---
ZOLL pads placed on pt, currently 60 BPM on ZOLL monitor
--- NOTE | 2025-03-29 14:02 | PC.PHAR ---
Addendum entered by Laura Clarke 03/29/25 14:28: No medications taken today, it is a dialysis day. Addendum entered by Laura Clarke 03/29/25 14:17: Pt states last time he was here 02/27/25, the only changes made were: stopped Spironolactone, Roflumilast, and Metoprolol. [facility]. Original Note: [facility] is [facility] 03/29/25 2pm. Last Med Rec was 1 month ago 02/27/25.
[2025-03-29 14:03] LABS: Alanine Aminotransferase 12 U/L (0-41); Albumin Level 3.6 g/dL (3.5-5.2); Alkaline Phosphatase 158 U/L (40-130); Anion Gap 18.4 (5-19); Aspartate Amino Transferase 13 U/L (0-40); Blood Urea Nitrogen 13 mg/dL (8-23); Calcium 8.6 mg/dL (8.5-10.5); Carbon Dioxide 32 mmol/L (22-29); Chloride 91 mmol/L (98-107); Creatinine Clr Calc Pharmacy 29.8822; Globulin 4.6 g/dL (1.3-4.6); Glucose 77 mg/dL (65-115); Osmolality Calculated 283 mOsm/kg (285-295); Potassium 4.4 mmol/L (3.5-5.1); Sodium 137 mmol/L (136-145); Total Protein 8.2 g/dL (6.6-8.7)
[2025-03-29 14:04] LABS: Troponin(5th) Baseline 163 ng/L (0-15)
--- NOTE | 2025-03-29 15:09 | PC.NURSE ---
this nurse interrogated pt's [employer] pacemaker, sent @[phone]
--- NOTE | 2025-03-29 15:30 | ECG_ITS ---
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1945 Requested By: Edgardo Espinoza Order Number: [id number] Reading MD: KINSEY VIVAS Measurements Intervals [place] Rate: 63 P: 0 GA: 0 QRS: 259 QRSD: 173 T: 31 QT: 510 QTc: 526 Interpretive Statements ATRIAL FIBRILLATION RIGHT AXIS DEVIATION [QRS AXIS > 100] RIGHT BUNDLE BRANCH BLOCK [120+ ms QRS DURATION, UPRIGHT V1, 40+ ms S IN I/aVL/V4/V5/V6] Compared to ECG 03/29/2025 13:17:37 Atrial-paced complex(es) or rhythm no longer present T-wave abnormality no longer present Possible ischemia no longer present Electronically Signed On 03-30-2025 16:10:32 CDT by KINSEY VIVAS [email or web address]
--- NOTE | 2025-03-29 15:40 | PC.NURSE ---
per [employer] rep, RV lead in pacemaker is not capturing, Dr. Lorenz notified.
--- NOTE | 2025-03-29 15:51 | PC.NURSE ---
updated transfer team at [facility] with patient information/status.
[2025-03-29 16:59] LABS: Troponin 5 2HR 150.8 ng/L (0-15); Troponin 5 2HR Delta -12.2 ABS# (0-10)
--- NOTE | 2025-03-29 17:37 | PC.NURSE ---
[facility] [place], floor 3e-ICU. report number . Pt and family updated.
== END 2025-03-29 19:32 | disposition short-term general hospital (02) ==
PROVIDERS: Emergency Provider Family Medicine; PCP Family Medicine Geriatric Medicine
DX: Z45.010 Encounter for checking and testing of cardiac pacemaker pulse generator [battery] (principal); R05.9 Cough, unspecified; R06.00 Dyspnea, unspecified; I45.10 Unspecified right bundle-branch block; I25.10 Atherosclerotic heart disease of native coronary artery without angina pectoris; E11.22 Type 2 diabetes mellitus with diabetic chronic kidney disease; I13.2 Hypertensive heart and chronic kidney disease with heart failure and with stage 5 chronic kidney disease, or end stage renal disease; I50.9 Heart failure, unspecified; N18.6 End stage renal disease
CPT/HCPCS: 36415; 71045; 80053; 84484; 85025; 93005; 99285